=== PATIENT | male | born 1945 | race Caucasian/White ===

== ENCOUNTER 2024-06-17 08:53 | Inpatient (IN) | payer MEDICARE, MEDICAID, OTHER, SELFPAY ==
--- NOTE | ~2024-06-17 | CT_ITS ---
EXAMINATION: CT HEAD WITHOUT CONTRAST CLINICAL INFORMATION: Fall yesterday. Weakness. COMPARISON: None available. TECHNIQUE: Contiguous axial imaging was performed from the skull base to vertex without intravenous administration of contrast. This CT examination was performed using dose optimization techniques as appropriate, variously including the following: *Automated exposure control *Adjustment of mA and/or kV according to patient size (this includes techniques or standardized protocols for targeted exams where dose is matched to indication/reason for exam; i.e. extremities or head) *Use of iterative reconstruction technique DLP: 711 mGy-cm FINDINGS: No intracranial hemorrhage, large infarction, or mass lesion is seen. Age-appropriate diffuse cortical atrophy and chronic bilateral periventricular white matter ischemic change. Left basal ganglia lacunar infarct. No extra-axial collection is appreciated. The ventricles are normal in size and configuration without evidence of hydrocephalus. The visualized paranasal sinuses and mastoid air cells are clear. CT/CT head/brain wo IV con IMPRESSION: No acute intracranial finding. Electronically signed by: Mc Felipe MD 06/17/2024 01:21 PM [facility]
--- NOTE | ~2024-06-17 | CT_ITS ---
EXAMINATION: CT ABDOMEN AND PELVIS WITHOUT AND WITH CONTRAST CLINICAL INFORMATION: Hematemesis. Syncope. COMPARISON: None available. TECHNIQUE: Multidetector volumetric imaging was performed of the abdomen and pelvis before and after the IV administration of 85 mL of Omnipaque 300 intravenous contrast. Sagittal and coronal reformatted images were obtained on the technologist's workstation. This CT examination was performed using dose optimization techniques as appropriate, variously including the following: *Automated exposure control *Adjustment of mA and/or kV according to patient size (this includes techniques or standardized protocols for targeted exams where dose is matched to indication/reason for exam; i.e. extremities or head) *Use of iterative reconstruction technique DLP: 3098 mGy-cm FINDINGS: LUNG BASES: The lung bases appear clear, with no evidence of inflammation or nodules. Heart normal in size. Decreased blood pool density, suggesting anemia. No pericardial effusion. LIVER, GALLBLADDER, AND BILIARY TREE: Less than 3 cm benign simple hepatic cysts. The otherwise liver appears unremarkable in size, shape, and attenuation. No suspicious focal hepatic lesion or biliary ductal dilatation is appreciated. Unremarkable appearance of the gallbladder. PANCREAS: Unremarkable SPLEEN: Unremarkable ADRENAL GLANDS: Unremarkable KIDNEYS AND URETERS: There is an approximately 3 cm benign left lower pole simple renal cyst for which no further dedicated follow-up imaging as indicated. The kidneys otherwise appear unremarkable in size, shape, and attenuation. No hydronephrosis, hydroureter, or calculi seen. BLADDER: Unremarkable GASTROINTESTINAL TRACT: Limited by motion. Cannot confirm or exclude irregular wall thickening involving the gastric antrum with possible induration of adjacent fat. No definite acute hemorrhage identified. The visualized small bowel appears unremarkable. Normal-appearing distal ileum. Colonic diverticula without evidence of diverticulitis. Normal-appearing vermiform appendix. ABDOMINAL WALL: No significant hernia is appreciated. LYMPH NODES: No evidence of adenopathy by size criteria. VASCULAR: Unremarkable PELVIC VISCERA: Unremarkable OSSEOUS STRUCTURES: Bilateral moderate osteoarthritis of the hips. CT/CT gi bleed abd pel wo/w IVcon IMPRESSION: Limited by motion. Cannot confirm or exclude irregular wall thickening involving the gastric antrum, with possible induration of adjacent fat. Cannot confirm or exclude ulceration and/or mass. No definite acute hemorrhage identified. Endoscopy is recommended for further evaluation. Additional findings as above. Electronically signed by: Mc Felipe MD 06/17/2024 02:43 PM EST
--- NOTE | ~2024-06-17 | XR_ITS ---
EXAMINATION: XR ABDOMEN KUB CLINICAL INDICATION: Constipation. Bloating. COMPARISON: CT abdomen/pelvis dated 06/17/2024. TECHNIQUE: AP views of the abdomen. FINDINGS: Moderate air and stool throughout the bowel, increased compared to the prior CT. Nonobstructive bowel gas pattern. No abnormal soft tissue calcification. No acute osseous abnormality. XR/XR KUB IMPRESSION: Moderate air and stool throughout the bowel, increased compared to the prior CT. Electronically signed by: Minh Bruno MD 06/19/2024 09:35 AM [facility]
--- NOTE | 2024-06-17 08:55 | ED.ABDPAIN ---
HPI - Abdominal Pain General Chief Complaint: General Medical Stated Complaint: VOMITING DARK BLOOD CONSTIPATED X 5 DAYS Time Seen by Provider: 06/17/24 09:03 Source: patient and EMS Mode of arrival: EMS Limitations: no limitations History of Present Illness HPI narrative: Patient is a 78-year-old male who presents emergency department for evaluation. He reports 1 week ago he was feeling constipated did not have a bowel movement for 5 days. He took Dulcolax and has small black bowel movement on 06/15/2024, followed by a more sufficient saw bowel movement yesterday. 06/15/2024 he had 3 episodes of dark bloody emesis, no further episodes since then. He states that he took Pepto-Bismol on one occasion as well. Yesterday he reports having a syncopal episode with standing in the kitchen for a glass of suman enid when suddenly he dropped down and was floor. He reports a near syncopal episode today feeling dizzy and lightheaded. He feels generally weak and fatigued today. Mild abdominal discomfort. Reports his only medical history being arthritis for which he receives cortisone injection to the knees and takes meloxicam and Celebrex. He does admit to daily alcohol consumption typically 3-4 beers. Related Data Allergies Allergy/AdvReac Type Severity Reaction Status Date / Time No Known Allergies Allergy Verified 06/17/24 09:18 Review of Systems Review of Systems Yes all other systems are reviewed and are negative [facility] Past Medical History Attestation statement: The following information was validated with the patient. Source: old records reviewed Social History Social History Advance Directives: No Advance Directives Information Provided: Yes Physical Exam ED Vital Signs: Vital Signs - 24 hr 06/17/24 09:15 06/17/24 14:57 Temperature 98.9 F Pulse Rate 77 76 Respiratory Rate 16 20 Blood Pressure 99/67 113/58 L Pulse Oximetry 100 100 Oxygen Delivery Method Room Air Room Air BMI result Body Mass Index 26.7 Appearance: Alert.?Oriented to person, place and time. No acute distress.?Normal affect.?? Neck: Normal inspection.? Neck supple.?? CVS: Heart sounds normal. Normal heart rate and rhythm.? Pulses normal.?? Respiratory: No respiratory distress.? Lung sounds clear to auscultation bilaterally?? Abdomen: soft with mild tenderness upon palpation in the right upper quadrant, negative Mohr sign. Negative psoas sign. Negative Rovsing sign. No CVAT. Normoactive bowel sounds. No pulsatile mass.?? Skin: Skin warm and dry.? Skin appears slightly dusky Extremities: No lower extremity edema.? Neuro: Moves all extremities spontaneously. Sensation intact bilaterally. Ambulates with normal steady gait. Course Reevaluation(s) Reevaluation #1: On digital rectal examination performed with ED missile tracking technician Leno at bedside, patient noted to have Brown/black matter diffusely across the posterior legs concerning for dried feces, this was cleaned. He states at this time that yesterday he did have a large amount of diarrhea. Time: 09:39 Reevaluation #2: CBC reveals no leukocytosis, a normocytic anemia, mild thrombocytopenia. Occult stool is positive. No electrolyte derangement. BUN of 50 with normal creatinine, EGFR >60, suspect the elevated BUN as secondary to upper GIB Reevaluation #3: Reaching out to Gastroenterology Dr. Nogueira, CT of the abdomen and pelvis limited due to motion, radiologist impression can not exclude irregular wall thickening involving the gastric antrum and possible induration of adjacent fat nor ulceration or mass definite acute hemorrhage is identified. Occult specimen is positive. Feel that it requires admission for further evaluation, likely an endoscopy. Concern due to his drinking status whether there may be underlying varices monitor CIWA. Keeping NPO at this time, has received Protonix. CT of the head is without acute intracranial pathology. High sensitive troponin is within normal range, EKG without acute ischemic finding. Time: 15:13 Additional Reevaluation(s): I spoke with Dr. 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 On evaluation he was found tenderness in the right upper quadrant. He appears generally unwell, has a slightly dusky appearance to the skin. He is alert and oriented speaking clear full sentences. Will obtain CBC to evaluate for leukocytosis/ anemia, CMP and lipase to evaluate for abnormal electrolytes /abnormal renal function/ abnormal hepatic/biliary function, EKG and troponin to evaluate for ischemia/ACS. CT head, CT abdomen pelvis with GIB protocol, and Urinalysis. Patient treatment with Protonix 80 mg IV saline IV fluid. No associated chest pain shortness of breath or URI symptoms to suggest pneumonia, no clinical evidence of DVT or personal history of VTE/malignancy to suggest pulmonary embolism. No high-risk past medical history to suggest myocardial infarction and is without chest pain. Mild right upper quadrant tenderness upon palpation, concerning for possible acute cholecystitis, choledocholithiasis, no fever or jaundice to suggest acute cholangitis, may possibly be biliary colic secondary to cholelithiasis. My tenderness upon palpation over the epigastrium reported recent hematemesis concerning for GIB, gastritis, PUD, history of daily alcohol consumption, concerning for possible esophageal varices. No rebound tenderness at McBurney's point, rigidity, guarding to suggest acute appendicitis. No associated genitourinary symptoms to suggest UTI/pyelonephritis, renal colic, hydronephrosis. Differential Diagnosis Differential Diagnoses: The differential diagnosis associated with the presentation includes (See narrative above) Admission/Observation Consideration of admission/observation: Escalation of care including admission/observation considered (See narrative above ) Consult Healthcare Provider Management of the patient was discussed with: Hospitalist (See course narrative) and Axle Polisher (See course narrative) Lab Data MDM Lab Attestation statement: I reviewed the patient's lab results. 06/17/24 09:45 06/17/24 09:45 Labs: Lab Results 06/17/24 06/17/24 06/17/24 Range/Units 09:30 09:45 13:14 WBC 7.4 (4.8-10.8) X10*3/uL RBC 3.06 L (4.60-5.80) X10*6/uL Hgb 10.0 L (14.0-18.0) g/dl Hct 28.0 L (42.0-52.0) % MCV 91.5 (80.0-98.0) fL MCH 32.7 (27.0-33.0) pg MCHC 35.7 (31.0-36.0) g/dl RDW 12.5 (11.0-16.0) % Plt Count 151 L (160-400) X10*3/uL MPV 11.0 (9.4-12.4) fL Immature Gran % (Auto) 0.8 H (0.0-0.4) % Neut % (Auto) 79.2 H (45-73) % Lymph % (Auto) 15.2 L (20-40) % [place] % (Auto) 4.4 (2-11) % Eos % (Auto) 0.1 (0-4) % Baso % (Auto) 0.3 (0-2) % Lymph # (Auto) 1.1 L (1.2-4.9) X10*3/uL [place] # (Auto) 0.3 (0.1-1.2) X10*3/uL Eos # (Auto) 0.0 (0.0-0.4) X10*3/uL Baso # (Auto) 0.0 (0.0-0.2) X10*3/uL Abs Immat Gran (auto) 0.06 H (0.00-0.03) X10*3/uL Absolute Neuts (auto) 5.9 (2.0-8.3) x10*3/uL Absolute Nucleated RBC 0.000 (0.0-0.012) X10*3/uL Nucleated RBC % (auto) 0.0 (0.0-0.2) /100WBC PT 12.9 H (10.9-12.4) SEC INR 1.1 (0.9-1.1) Sodium 138 (135-145) mmol/L Potassium 4.0 (3.3-5.1) mmol/L Chloride 101 (96-108) mmol/L Carbon Dioxide 27 (22-29) mmol/L Anion Gap 14 (12-20) BUN 50 H (9-16) mg/dL Creatinine 1.13 (0.5-1.4) mg/dL Estim Creat Clear Calc 53.0 Estimated GFR > 60 Random Glucose 128 H (60-115) mg/dL Lactic Acid 2.5 H* (0.5-2.0) mmol/L Lactic Acid F/U @ 2Hr 2.1 H* (0.5-2.0) mmol/L Calcium 8.0 L (8.4-10.2) mg/dL Magnesium 2.9 H (1.6-2.6) mg/dL Total Bilirubin 0.9 (0.0-1.0) mg/dL AST 17 (5-37) U/L ALT 13 (0-40) U/L Alkaline Phosphatase 55 (39-117) U/L Total Creatine Kinase 26 L (38-174) U/L Troponin I High Sens 8.4 (<3.5-35.0) ng/L Total Protein 6.0 L (6.5-8.0) g/dL Albumin 3.5 (3.5-5.0) g/dL Lipase 28 (8-78) U/L Urine Color Urine Appearance Urine pH (5.0-9.0) Ur Specific [place] (1.005-1.025) Urine Protein (Neg-Trace) mg/dL Urine Glucose (UA) (Negative) mg/dL Urine Ketones (Negative) mg/dL Urine Blood (Negative) Urine Nitrite (Negative) Ur Leukocyte Esterase (Negative) Stool Occult Blood POSITIVE (NEGATIVE) Influenza Type A (PCR) NEGATIVE (Negative) Influenza Type B (PCR) NEGATIVE (Negative) RSV RNA Qual (PCR) NEGATIVE (Negative) SARS-CoV-2 RNA (RT-PCR) NEGATIVE (Negative) Blood Type A Positive Antibody Screen NEGATIVE 06/17/24 Range/Units 15:03 WBC (4.8-10.8) X10*3/uL RBC (4.60-5.80) X10*6/uL Hgb (14.0-18.0) g/dl Hct (42.0-52.0) % MCV (80.0-98.0) fL MCH (27.0-33.0) pg MCHC (31.0-36.0) g/dl RDW (11.0-16.0) % Plt Count (160-400) X10*3/uL MPV (9.4-12.4) fL Immature Gran % (Auto) (0.0-0.4) % Neut % (Auto) (45-73) % Lymph % (Auto) (20-40) % [place] % (Auto) (2-11) % Eos % (Auto) (0-4) % Baso % (Auto) (0-2) % Lymph # (Auto) (1.2-4.9) X10*3/uL [place] # (Auto) (0.1-1.2) X10*3/uL Eos # (Auto) (0.0-0.4) X10*3/uL Baso # (Auto) (0.0-0.2) X10*3/uL Abs Immat Gran (auto) (0.00-0.03) X10*3/uL Absolute Neuts (auto) (2.0-8.3) x10*3/uL Absolute Nucleated RBC (0.0-0.012) X10*3/uL Nucleated RBC % (auto) (0.0-0.2) /100WBC PT (10.9-12.4) SEC INR (0.9-1.1) Sodium (135-145) mmol/L Potassium (3.3-5.1) mmol/L Chloride (96-108) mmol/L Carbon Dioxide (22-29) mmol/L Anion Gap (12-20) BUN (9-16) mg/dL Creatinine (0.5-1.4) mg/dL Estim Creat Clear Calc Estimated GFR Random Glucose (60-115) mg/dL Lactic Acid (0.5-2.0) mmol/L Lactic Acid F/U @ 2Hr (0.5-2.0) mmol/L Calcium (8.4-10.2) mg/dL Magnesium (1.6-2.6) mg/dL Total Bilirubin (0.0-1.0) mg/dL AST (5-37) U/L ALT (0-40) U/L Alkaline Phosphatase (39-117) U/L Total Creatine Kinase (38-174) U/L Troponin I High Sens (<3.5-35.0) ng/L Total Protein (6.5-8.0) g/dL Albumin (3.5-5.0) g/dL Lipase (8-78) U/L Urine Color Yellow Urine Appearance Clear Urine pH 6.5 (5.0-9.0) Ur Specific [place] >= 1.030 H (1.005-1.025) Urine Protein Negative (Neg-Trace) mg/dL Urine Glucose (UA) Negative (Negative) mg/dL Urine Ketones Negative (Negative) mg/dL Urine Blood Negative (Negative) Urine Nitrite Negative (Negative) Ur Leukocyte Esterase Negative (Negative) Stool Occult Blood (NEGATIVE) Influenza Type A (PCR) (Negative) Influenza Type B (PCR) (Negative) RSV RNA Qual (PCR) (Negative) SARS-CoV-2 RNA (RT-PCR) (Negative) Blood Type Antibody Screen Independent Interpretation I performed an independent interpretation of an: EKG Interpretation: Rate: 84 Rhythm:? Sinus rhythm, PVC Normal P waves.? Short KATELYN, 100 ms.?? Normal QRS complex.?? ST T wave :??No ST elevation, no ST depression qTC:472 prior studies:? No prior available for review The study has been interpreted contemporaneously by me. Radiology Impression Discussion of test interpretation with radiology: I have reviewed the radiologist's reading. Radiologist Impression: CT/CT head/brain wo IV con IMPRESSION: No acute intracranial finding. CT/CT gi bleed abd pel wo/w IVcon IMPRESSION: Limited by motion. Cannot confirm or exclude irregular wall thickening involving the gastric antrum, with possible induration of adjacent fat. Cannot confirm or exclude ulceration and/or mass. No definite acute hemorrhage identified. Endoscopy is recommended for further evaluation. Independent Historian Clinical information obtained from an independent historian. History obtained from or confirmed by: EMS Medications Administered Discontinued Medications Generic Name Dose Route Start Last Admin Trade Name Freq PRN Reason Stop Dose Admin Sodium Chloride 1,000 mls @ 999 mls/hr 06/17/24 09:15 06/17/24 12:39 Ns IV 06/17/24 10:15 Infused .Q1H1M GISELA Infusion Iohexol 100 ml 06/17/24 11:43 06/17/24 11:44 Iohexol 350 Mg/Ml 100 Ml Infus..Btl IV 06/17/24 11:44 85 ml ONCE ONE Administration Pantoprazole Sodium 80 mg 06/17/24 09:03 06/17/24 09:48 Pantoprazole Sodium 40 Mg/10 Ml Vial IVPUSH 06/17/24 09:04 80 mg ONCE ONE Administration Critical Care Time Critical Care Time Critical Care Time: Yes Total Critical Care Time: 35 Attestation: I personally attest to this critical care time spent taking care of the patient exclusive of all other billable procedures was approximately 35 minutes including initial evaluation of patient, ordering tests, upper GIB, IV PPI, EKG interpretation, medical consultation, documentation, re-evaluation. Discharge Plan Discharge Clinical Impression: Upper gastrointestinal bleed Patient Disposition: Admitted As Inpatient Print Language: Niuean
--- NOTE | 2024-06-17 09:04 | ECG_ITS ---
Test Reason : SYNCOPE Blood Pressure : / mmHG Vent. Rate : 084 BPM Atrial Rate : 084 BPM P-R Int : 100 ms QRS Dur : 092 ms QT Int : 400 ms P-R-T Axes : 021 -10 -40 degrees QTc Int : 472 ms Sinus rhythm with short MO with Premature supraventricular complexes and with frequent Premature ventricular complexes Nonspecific ST abnormality Abnormal ECG No previous ECGs available Referred By: Franci Anthony Electronically Signed By:JHOANA CARRENO
[2024-06-17 09:15] VITALS: BP 132/71; BP 99/67; PULSE 77; PULSE 92; RESP 16; TEMP 37.2; O2SAT 100; BMI 26.7
[2024-06-17] MEDS: Pantoprazole Sodium 40 MG/10 ML VIAL 80 MG IVPUSH (09:48)
[2024-06-17] MEDS: 0.9 % Sodium Chloride 1,000 ML 999 ML IV (09:48)
[2024-06-17 09:52] LABS: MANUAL DIFF FLAG NO
[2024-06-17 09:53] LABS: Basophils Percent Auto 0.3 % (0-2); Eosinophils Percent Auto 0.1 % (0-4); Imm Gran Abs Auto 0.06 X10*3/uL (0.00-0.03); Imm Gran Pct Auto 0.8 % (0.0-0.4); Lymphocytes Absolute Auto 1.1 X10*3/uL (1.2-4.9); Lymphocytes Percent Auto 15.2 % (20-40); Mean Corpuscular HGB Conc 35.7 g/dl (31.0-36.0); Mean Corpuscular Hemoglobin 32.7 pg (27.0-33.0); Mean Corpuscular Volume 91.5 fL (80.0-98.0); Monocytes Absolute Auto 0.3 X10*3/uL (0.1-1.2); Monocytes Percent Auto 4.4 % (2-11); Neutrophils Absolute Auto 5.9 x10*3/uL (2.0-8.3); Neutrophils Percent Auto 79.2 % (45-73); OBS Int Ctl Valid YES; OBS1 POSITIVE (NEGATIVE); Platelet Count 151 X10*3/uL (160-400); Red Blood Count 3.06 X10*6/uL (4.60-5.80); Red Cell Distribution Width 12.5 % (11.0-16.0); White Blood Count 7.4 X10*3/uL (4.8-10.8)
[2024-06-17 09:58] LABS: INTERNATIONAL NORM RATIO 1.1 (0.9-1.1); Prothrombin Time 12.9 SEC (10.9-12.4)
--- NOTE | 2024-06-17 10:09 | PC.NURSE ---
Pt changed over on arrival for exam purposes, pt able to stand at the bedside with staff assist for exchange clerk. Pt is a/ox4. IV placed by EMS, labs obtained by straight stick. REctal exam done at bedside with provider, awaiting further orders at this time.
[2024-06-17 10:10] LABS: Alanine Aminotransferase 13 U/L (0-40); Albumin Level 3.5 g/dL (3.5-5.0); Alkaline Phosphatase 55 U/L (39-117); Anion Gap 14 (12-20); Aspartate Amino Transferase 17 U/L (5-37); Bilirubin Total 0.9 mg/dL (0.0-1.0); Blood Urea Nitrogen 50 mg/dL (9-16); Carbon Dioxide 27 mmol/L (22-29); Chloride 101 mmol/L (96-108); Estimated Glomerular Filt Rate > 60; Glucose Random 128 mg/dL (60-115); Lipase 28 U/L (8-78); Magnesium 2.9 mg/dL (1.6-2.6); Sodium 138 mmol/L (135-145)
[2024-06-17 10:14] LABS: Lactic Acid 2.5 mmol/L (0.5-2.0)
[2024-06-17 10:17] LABS: Influenza A PCR NEGATIVE (Negative); Influenza B PCR NEGATIVE (Negative); Resp Syncy Virus RNA Qual PCR NEGATIVE (Negative); SARS COV2 PCR INHOUSE NEGATIVE (Negative)
[2024-06-17 10:17] LABS: Troponin-I High Sensitivity 8.4 ng/L (<3.5-35.0)
[2024-06-17] MEDS: iohexoL 350 MG/ML 100 ML INFUS..BTL IV (11:44)
[2024-06-17 11:50] LABS: Reflex Lactate? Lactic Acid Added
[2024-06-17 13:43] LABS: ~Lactic Acid-LAB USE ONLY 2.1 mmol/L (0.5-2.0)
[2024-06-17 14:57] VITALS: BP 113/58; PULSE 76; RESP 20; O2SAT 100
[2024-06-17 15:09] LABS: Appearance Urine Clear; Color Urine Yellow; Glucose Urine UA Negative (Negative); Leukocyte Esterase Urine Negative (Negative); Nitrite Urine Negative (Negative); PH 6.5 (5.0-9.0); Specific Gravity - Urine >= 1.030 (1.005-1.025); Urine Blood Negative (Negative); Urine Ketones Negative (Negative); Urine Protein Negative (Neg-Trace)
[2024-06-17 15:16] LABS: Reflex Lactate? 2 Y
--- NOTE | 2024-06-17 15:53 | PC.NURSE ---
Per PA, repeat 3rd lactic canceled as patient is not meeting any type of septic work up at this time. Lab canceled in system
--- NOTE | 2024-06-17 16:27 | PHA.MEDREC ---
Pharmacy Consult ? Medication Reconciliation Pharmacy has completed the medication reconciliation. Spoke to patient to confirm medication list. Patient reports he gets cortisone shots for his knees. He takes celecoxib 200 mg every other day (with food) alternating with meloxicam 15 mg every other day. He has stared doing this since his doctor's visit on 05/24/24. Last dose was thursday or thursday.
--- NOTE | 2024-06-17 16:41 | PM.EVENT ---
Event Note Date of Service: 06/17/24 Event Note: Mr. Nick's presentation was discussed with Dr. Shoemaker. ER notes, labs, and imaging are reviewed. EGD planned for 06/18 for further evaluation of gi blood loss. Full consult to follow. Time Spent With Patient Time: Total time managing care of this patient today ____ minutes.
--- NOTE | 2024-06-17 16:55 | PM.IMHP ---
History of Present Illness Date of Service: 06/17/24 Attending physician on admission: Angela Agudelo Chief Complaint: gib 78y/o M current alcohol use (3-4 beer everday lifelong, also takes meloxicam and Celebrex for knee arthritis ) says 1 week ago he was feeling constipated for which he took Dulcolax and has small black bowel movement on 06/15/2024, followed by a more sufficient saw bowel movement yesterday. 06/15/2024 he had 3 episodes of dark bloody emesis, no further episodes. he is not eating from 3-4 days due to above issues, He states that he took Pepto-Bismol on one occasion as well, Yesterday he had syncopal episode with standing in the kitchen for a glass of suman enid when suddenly he dropped down and was floor,felt dizzy and lightheaded and had syncope episode. He feels generally weak and fatigued today. Mild abdominal discomfort. for knee arthritis for which he receives cortisone injection to the knees . Patient did not go to any doctor from last 40 years-could not tell if any other past medical history or any abdominal surgeries. Social history: Quit smoking 40 years ago, total years smoked is 10. Denies any recreation drug use. Lab imaging EKG reviewed: Is H&H is around 10, no tachycardia or tachypnea. CT head and negative Stool for occult blood positive CT abdomen:Limited by motion. Cannot confirm or exclude irregular wall thickening involving the gastric antrum, with possible induration of adjacent fat. Cannot confirm or exclude ulceration and/or mass. Review of Systems Review of Systems: As above. Yes all other systems are reviewed and are negative [facility] Social History Patient Tobacco Use Status: Never used Tobacco Advance Directives: No Advance Directives Information Provided: Yes Meds Allergies Allergy/AdvReac Type Severity Reaction Status Date / Time No Known Allergies Allergy Verified 06/17/24 09:18 Active Medications: Current Medications Acetaminophen (Acetaminophen 325 Mg Tablet) 650 mg PO Q6H PRN PRN Reason: Pain, Mild (Pain Scale 1-3), fever or headache Calcium Carbonate (Calcium Carbonate 750 Mg Tab.Chew) 750 mg PO Q4H PRN PRN Reason: Heartburn Pantoprazole Sodium 80 mg/ (Sodium Chloride) 100 mls @ 10 mls/hr IV .Q10H GISELA Magnesium Hydroxide (Milk Of Magnesia 30 Ml Oral.Susp) 30 ml PO DAILY PRN PRN Reason: Constipation Melatonin (Melatonin 3 Mg Tablet) 6 mg PO BEDTIME PRN PRN Reason: Insomnia Sodium Chloride (0.9 % Sodium Chloride Flush 3 Ml Syringe) 3 ml IVFLUSH QSHIFT GISELA Home Medications ?Medication ?Instructions ?Recorded ?Confirmed ?Last Taken ?Type celecoxib 200 mg capsule 200 mg Q48H 06/17/24 06/17/24 06/12/24 History meloxicam 15 mg tablet 15 mg PO Q48H 06/17/24 06/17/24 06/11/24 History Physical Exam Vital Signs and Narrative: Vital Signs: Last Vital Signs Temp 98.9 F 06/17/24 09:15 Pulse 76 06/17/24 14:57 Resp 20 06/17/24 14:57 BP 113/58 L 06/17/24 14:57 Pulse Ox 100 06/17/24 14:57 O2 Del Method Room Air 06/17/24 14:57 BMI result Body Mass Index 26.7 Appearance: Alert.? Oriented X3.? Eyes: Pupils equal, round and reactive to light.? Sclera nonicteric.? ENT: Pharynx normal.? dry mucous membranes. cvs: rrr, [id number] . res: clear to auscultation ,no rhonchii or wheezing abd: no rebound or guarding ,mild tenderness in epigastric area, bs present. ext pulses present , no cyanosis. neuro: axo3 , nonfocal. Results Labs 06/17/24 17:55 06/17/24 09:45 Labs: Laboratory Results - last 24 hr 06/17/24 06/17/24 06/17/24 09:30 09:45 13:14 MCV 91.5 MCH 32.7 MCHC 35.7 RDW 12.5 Plt Count 151 L MPV 11.0 Immature Gran % (Auto) 0.8 H Neut % (Auto) 79.2 H Lymph % (Auto) 15.2 L [place] % (Auto) 4.4 Eos % (Auto) 0.1 Baso % (Auto) 0.3 Lymph # (Auto) 1.1 L [place] # (Auto) 0.3 Eos # (Auto) 0.0 Baso # (Auto) 0.0 Abs Immat Gran (auto) 0.06 H Absolute Neuts (auto) 5.9 Absolute Nucleated RBC 0.000 Nucleated RBC % (auto) 0.0 PT 12.9 H INR 1.1 Anion Gap 14 Estim Creat Clear Calc 53.0 Estimated GFR > 60 Random Glucose 128 H Lactic Acid 2.5 H* Lactic Acid F/U @ 2Hr 2.1 H* Calcium 8.0 L Magnesium 2.9 H Total Bilirubin 0.9 AST 17 ALT 13 Alkaline Phosphatase 55 Total Creatine Kinase 26 L Troponin I High Sens 8.4 Total Protein 6.0 L Albumin 3.5 Lipase 28 Urine Color Urine Appearance Urine pH Ur Specific [place] Urine Protein Urine Glucose (UA) Urine Ketones Urine Blood Urine Nitrite Ur Leukocyte Esterase Stool Occult Blood POSITIVE Influenza Type A (PCR) NEGATIVE Influenza Type B (PCR) NEGATIVE RSV RNA Qual (PCR) NEGATIVE SARS-CoV-2 RNA (RT-PCR) NEGATIVE Blood Type A Positive Antibody Screen NEGATIVE 06/17/24 15:03 MCV MCH MCHC RDW Plt Count MPV Immature Gran % (Auto) Neut % (Auto) Lymph % (Auto) [place] % (Auto) Eos % (Auto) Baso % (Auto) Lymph # (Auto) [place] # (Auto) Eos # (Auto) Baso # (Auto) Abs Immat Gran (auto) Absolute Neuts (auto) Absolute Nucleated RBC Nucleated RBC % (auto) PT INR Anion Gap Estim Creat Clear Calc Estimated GFR Random Glucose Lactic Acid Lactic Acid F/U @ 2Hr Calcium Magnesium Total Bilirubin AST ALT Alkaline Phosphatase Total Creatine Kinase Troponin I High Sens Total Protein Albumin Lipase Urine Color Yellow Urine Appearance Clear Urine pH 6.5 Ur Specific [place] >= 1.030 H Urine Protein Negative Urine Glucose (UA) Negative Urine Ketones Negative Urine Blood Negative Urine Nitrite Negative Ur Leukocyte Esterase Negative Stool Occult Blood Influenza Type A (PCR) Influenza Type B (PCR) RSV RNA Qual (PCR) SARS-CoV-2 RNA (RT-PCR) Blood Type Antibody Screen ECG Attestation: I personally reviewed and interpreted this ECG as follows: (nsr) Imaging Radiologist's Impressions: Impressions Abdomen/Pelvis CT 06/17/24 09:03 IMPRESSION: Limited by motion. Cannot confirm or exclude irregular wall thickening involving the gastric antrum, with possible induration of adjacent fat. Cannot confirm or exclude ulceration and/or mass. No definite acute hemorrhage identified. Endoscopy is recommended for further evaluation. Additional findings as above. Electronically signed by: Mc Felipe MD 06/17/2024 02:43 PM EST RP Head CT 06/17/24 09:03 IMPRESSION: No acute intracranial finding. Electronically signed by: Mc Felipe MD 06/17/2024 01:21 PM EST RP Assessment and Plan (1) Upper gastrointestinal bleed: Status: Acute Plan 78y/o M current alcohol use (3-4 beer everday lifelong, also takes meloxicam and Celebrex for knee arthritis ) says 1 week ago he was feeling constipated for which he took Dulcolax and has small black bowel movement on 06/15/2024, followed by a more sufficient saw bowel movement yesterday. 06/15/2024 he had 3 episodes of dark bloody emesis, no further episodes. no hx of any colonoscopy or egd. Upper GIB:? multifactorial (meloxicam and Celebrex ,alcohol use) Ed d/w case with Gi -receomended to start iv ppi plan: has mild lightheadness no new episode of vomiting from 06/15 vitals stable moniter on tele moniter h/h ,ppi,ivf npo ,plan for egd in am type and screen Gi eval. arthritis knee (?OA): stable lidocaine patch,if needed will consider iv tylenol. juan : ivf ns @ 100ml/hr Acute lactic acidosis: Likely due to dehydration, improving No further lactic acid trending, unless clinical situation changes. dvt prophylax: mech devices. ongoing need for hospitlisation -upper GI bleed need ppi, H&H monitoring, may need transfusion if continue to bleed, GI evaluation, if patient becomes hemodynamically unstable -will need ICU evaluation. above is d/w ICU Dr Elizondo. Above management discussed with the patient in detail length he understand in agreement with the above plan, time spent 70 minute, patient full code. Quality Stroke Does the patient have a stroke diagnosis?: No VTE Prior VTE?: No VTE Risk Level:: Medical - moderate - high VTE Device Contraindication: N/A - Device Ordered VTE Drug Contraindication: N/A - Med Ordered
[2024-06-17 17:18] VITALS: BP 122/60; PULSE 71; RESP 16; TEMP 37.2; O2SAT 99
[2024-06-17 17:35] LABS: Cancel Lactic Acid Canceled
--- NOTE | 2024-06-17 17:38 | PC.NURSE ---
This RN has updated daughter on plan of care. Pt aware of plan, and nNPO status. This RN straight stick for H&H order at this time.
[2024-06-17] MEDS: Pantoprazole Sodium 80 MG in 0.9 % Sodium Chloride 80 ML 10 MG IV (17:44)
[2024-06-17] MEDS: 0.9 % Sodium Chloride 1,000 ML 100 ML IVCONT (17:44)
[2024-06-17 18:02] LABS: Hemoglobin 8.8 g/dl (14.0-18.0); Mean Corpuscular HGB Conc 35.2 g/dl (31.0-36.0); Mean Corpuscular Hemoglobin 32.4 pg (27.0-33.0); Mean Corpuscular Volume 91.9 fL (80.0-98.0); Mean Platelet Volume 10.7 fL (9.4-12.4); Platelet Count 123 X10*3/uL (160-400); Red Blood Count 2.72 X10*6/uL (4.60-5.80); Red Cell Distribution Width 12.6 % (11.0-16.0); White Blood Count 6.3 X10*3/uL (4.8-10.8)
[2024-06-17 19:24] VITALS: BP 111/54; PULSE 67; RESP 16; TEMP 36.8; O2SAT 99
[2024-06-17 20:03] LABS: Hematocrit 24.3 % (42.0-52.0); Hemoglobin 8.5 g/dl (14.0-18.0)
[2024-06-17 20:37] VITALS: BMI 27.0
[2024-06-17 21:19] VITALS: BP 146/65; PULSE 71; RESP 17; TEMP 36.7; O2SAT 99
[2024-06-18] VITALS (15 sets, daily range): BP systolic 104–132; BP diastolic 50–67; PULSE 58–87; RESP 14–18; TEMP 36.1–36.7; O2SAT 96–100
[2024-06-18 00:32] LABS: Hematocrit 23.5 % (42.0-52.0); Hemoglobin 8.2 g/dl (14.0-18.0); Mean Corpuscular HGB Conc 34.9 g/dl (31.0-36.0); Mean Corpuscular Hemoglobin 32.5 pg (27.0-33.0); Mean Corpuscular Volume 93.3 fL (80.0-98.0); Mean Platelet Volume 10.2 fL (9.4-12.4); Platelet Count 126 X10*3/uL (160-400); Red Blood Count 2.52 X10*6/uL (4.60-5.80); Red Cell Distribution Width 12.7 % (11.0-16.0)
[2024-06-18] MEDS: Pantoprazole Sodium 80 MG in 0.9 % Sodium Chloride 80 ML 10 MG IV ×2 (02:05→13:09)
[2024-06-18] MEDS: 0.9 % Sodium Chloride 1,000 ML 100 ML IVCONT (02:55)
[2024-06-18 08:40] LABS: Hematocrit 23.7 % (42.0-52.0); Hemoglobin 8.3 g/dl (14.0-18.0); Mean Corpuscular Hemoglobin 33.1 pg (27.0-33.0); Mean Corpuscular Volume 94.4 fL (80.0-98.0); Mean Platelet Volume 10.8 fL (9.4-12.4); Platelet Count 133 X10*3/uL (160-400); Red Blood Count 2.51 X10*6/uL (4.60-5.80); Red Cell Distribution Width 12.6 % (11.0-16.0); White Blood Count 4.5 X10*3/uL (4.8-10.8)
--- NOTE | 2024-06-18 08:49 | P.CONAN_ITS ---
HPI - Anesthesia Eval Consult details Narrative: GI bleed PMFSH Active Problems Active Problems: All Active Problems Upper gastrointestinal bleed (Acute) Family History Family history of problems with anesthesia: No Surgical History History of Problems with Anesthesia: No Social History Social History Household Members: None Housing: Apartment Do you presently have visiting nurse or other home services: No Patient Tobacco Use Status: Never used Tobacco Meds Allergies Allergy/AdvReac Type Severity Reaction Status Date / Time No Known Allergies Allergy Verified 06/17/24 09:18 Active Medications: Current Medications Acetaminophen (Acetaminophen 325 Mg Tablet) 650 mg PO Q6H PRN PRN Reason: Pain, Mild (Pain Scale 1-3), fever or headache Calcium Carbonate (Calcium Carbonate 750 Mg Tab.Chew) 750 mg PO Q4H PRN PRN Reason: Heartburn Pantoprazole Sodium 80 mg/ (Sodium Chloride) 100 mls @ 10 mls/hr IV .Q10H [facility] Last Admin: 06/18/24 02:05 Dose: 8 mg/hr, 10 mls/hr Sodium Chloride (Ns) 1,000 mls @ 100 mls/hr IVCONT .Q10H [facility] Last Admin: 06/18/24 02:55 Dose: 100 mls/hr Magnesium Hydroxide (Milk Of Magnesia 30 Ml Oral.Susp) 30 ml PO DAILY PRN PRN Reason: Constipation Melatonin (Melatonin 3 Mg Tablet) 6 mg PO BEDTIME PRN PRN Reason: Insomnia Sodium Chloride (0.9 % Sodium Chloride Flush 3 Ml Syringe) 3 ml IVFLUSH QSHIFT [facility] Last Admin: 06/18/24 08:41 Dose: Not Given Home Medications ?Medication ?Instructions ?Recorded ?Confirmed ?Last Taken ?Type celecoxib 200 mg capsule 200 mg Q48H 06/17/24 06/17/24 06/12/24 History meloxicam 15 mg tablet 15 mg PO Q48H 06/17/24 06/17/24 06/11/24 History Exam Height,Weight and Vital Signs: Height 5 ft 9 in Weight 83 kg Last Vital Signs Temp 97.2 F 06/18/24 08:00 Pulse 62 06/18/24 08:00 Resp 18 06/18/24 08:00 BP 122/60 06/18/24 08:00 Pulse Ox 99 06/18/24 08:00 O2 Del Method Room Air 06/18/24 08:00 Pertinent Lab Results Pertinent Lab Results: Laboratory Tests 06/17/24 06/17/24 06/17/24 09:30 09:45 13:14 WBC 7.4 RBC 3.06 L Hgb 10.0 L Hct 28.0 L MCV 91.5 MCH 32.7 MCHC 35.7 RDW 12.5 Plt Count 151 L MPV 11.0 Immature Gran % (Auto) 0.8 H Neut % (Auto) 79.2 H Lymph % (Auto) 15.2 L [place] % (Auto) 4.4 Eos % (Auto) 0.1 Baso % (Auto) 0.3 Lymph # (Auto) 1.1 L [place] # (Auto) 0.3 Eos # (Auto) 0.0 Baso # (Auto) 0.0 Abs Immat Gran (auto) 0.06 H Absolute Neuts (auto) 5.9 Absolute Nucleated RBC 0.000 Nucleated RBC % (auto) 0.0 PT 12.9 H INR 1.1 Sodium 138 Potassium 4.0 Chloride 101 Carbon Dioxide 27 Anion Gap 14 BUN 50 H Creatinine 1.13 Estim Creat Clear Calc 53.0 Estimated GFR > 60 Random Glucose 128 H Lactic Acid 2.5 H* Lactic Acid F/U @ 2Hr 2.1 H* Calcium 8.0 L Magnesium 2.9 H Total Bilirubin 0.9 AST 17 ALT 13 Alkaline Phosphatase 55 Total Creatine Kinase 26 L Troponin I High Sens 8.4 Total Protein 6.0 L Albumin 3.5 Lipase 28 Urine Color Urine Appearance Urine pH Ur Specific [place] Urine Protein Urine Glucose (UA) Urine Ketones Urine Blood Urine Nitrite Ur Leukocyte Esterase Stool Occult Blood POSITIVE Influenza Type A (PCR) NEGATIVE Influenza Type B (PCR) NEGATIVE RSV RNA Qual (PCR) NEGATIVE SARS-CoV-2 RNA (RT-PCR) NEGATIVE Blood Type A Positive Antibody Screen NEGATIVE Crossmatch See Detail 06/17/24 06/17/24 06/17/24 15:03 17:18 17:55 WBC 6.3 RBC 2.72 L Hgb 8.5 L 8.8 L Hct 24.3 L 25.0 L MCV 91.9 MCH 32.4 MCHC 35.2 RDW 12.6 Plt Count 123 L MPV 10.7 Immature Gran % (Auto) Neut % (Auto) Lymph % (Auto) [place] % (Auto) Eos % (Auto) Baso % (Auto) Lymph # (Auto) [place] # (Auto) Eos # (Auto) Baso # (Auto) Abs Immat Gran (auto) Absolute Neuts (auto) Absolute Nucleated RBC 0.000 Nucleated RBC % (auto) 0.0 PT INR Sodium Potassium Chloride Carbon Dioxide Anion Gap BUN Creatinine Estim Creat Clear Calc Estimated GFR Random Glucose Lactic Acid Lactic Acid F/U @ 2Hr Calcium Magnesium Total Bilirubin AST ALT Alkaline Phosphatase Total Creatine Kinase Troponin I High Sens Total Protein Albumin Lipase Urine Color Yellow Urine Appearance Clear Urine pH 6.5 Ur Specific [place] >= 1.030 H Urine Protein Negative Urine Glucose (UA) Negative Urine Ketones Negative Urine Blood Negative Urine Nitrite Negative Ur Leukocyte Esterase Negative Stool Occult Blood Influenza Type A (PCR) Influenza Type B (PCR) RSV RNA Qual (PCR) SARS-CoV-2 RNA (RT-PCR) Blood Type Antibody Screen Crossmatch 06/18/24 06/18/24 00:24 08:04 WBC 5.0 4.5 L RBC 2.52 L 2.51 L Hgb 8.2 L 8.3 L Hct 23.5 L 23.7 L MCV 93.3 94.4 MCH 32.5 33.1 H MCHC 34.9 35.0 RDW 12.7 12.6 Plt Count 126 L 133 L MPV 10.2 10.8 Immature Gran % (Auto) Neut % (Auto) Lymph % (Auto) [place] % (Auto) Eos % (Auto) Baso % (Auto) Lymph # (Auto) [place] # (Auto) Eos # (Auto) Baso # (Auto) Abs Immat Gran (auto) Absolute Neuts (auto) Absolute Nucleated RBC 0.000 0.000 Nucleated RBC % (auto) 0.0 0.0 PT INR Sodium Potassium Chloride Carbon Dioxide Anion Gap BUN Creatinine Estim Creat Clear Calc Estimated GFR Random Glucose Lactic Acid Lactic Acid F/U @ 2Hr Calcium Magnesium Total Bilirubin AST ALT Alkaline Phosphatase Total Creatine Kinase Troponin I High Sens Total Protein Albumin Lipase Urine Color Urine Appearance Urine pH Ur Specific [place] Urine Protein Urine Glucose (UA) Urine Ketones Urine Blood Urine Nitrite Ur Leukocyte Esterase Stool Occult Blood Influenza Type A (PCR) Influenza Type B (PCR) RSV RNA Qual (PCR) SARS-CoV-2 RNA (RT-PCR) Blood Type Antibody Screen Crossmatch Airway Mallampati Class: II TM Dist: >3cm Neck ROM: Full Loose/Missing/Broken Teeth: No Heart: RRR Lungs: CTA Assessment and Plan Assessment Anesthesia Assessment: Anesthesia Plan Discussed and Chart Reviewed Final Anesthetic Review Family History of Problems with Anesthesia: No History of Problems with Anesthesia: No NPO: Yes ASA Class: II Final Preanesthetic Review: No Changes in Pt Med Stat, Meds/Allgs Chart Reviewed, Consent Obtained/Reviewed and Anes Risks/Benef Reviewed Patient Risk: Intermediate Procedure Risk: Low Anesthetic Plan Anesthetic Plan: MAC: Disposition: Standard PACU
[2024-06-18 08:52] LABS: Anion Gap 11 (12-20); Blood Urea Nitrogen 25 mg/dL (9-16); Calcium 7.4 mg/dL (8.4-10.2); Carbon Dioxide 27 mmol/L (22-29); Chloride 108 mmol/L (96-108); Creatinine Clr Calc Pharmacy 69.6; Estimated Glomerular Filt Rate > 60; Glucose Random 99 mg/dL (60-115); Potassium 4.1 mmol/L (3.3-5.1); Sodium 142 mmol/L (135-145)
--- NOTE | 2024-06-18 09:38 | MHC.SHP ---
Pre-Procedural Eval Section A - 24 Hr Update-Section A only Date of Service: 06/18/24 The patient is an INPATIENT: Yes Changes since office visit: No Cold of Flu in the past 2 weeks, No New Medical Problems, No Changes in Medication and No Patient answered all questions The patient has been examined within 24 hours of the surgical procedure. The History & Physical has been completed within 30 days and I have reviewed it.: Yes Section B - Complete if H&P > 30 days Chief Complaint: Gib Allergies: Allergies Allergy/AdvReac Type Severity Reaction Status Date / Time No Known Allergies Allergy Verified 06/17/24 09:18 Plan I have reviewed the history and physical and performed a pertinent physical examination on my patient. No changes have occurred unless specified. Time Spent With Patient Time: Total time managing care of this patient today ____ minutes.
--- NOTE | 2024-06-18 09:39 | PM.EVENT ---
Event Note Date of Service: 06/18/24 Event Note: GI EGD shows large prepyloric gastric ulcer without active bleeding antral biopsies obtained start clear liquids, advance diet as tolerated. continue iv ppi f/u bx results. Time Spent With Patient Time: Total time managing care of this patient today ____ minutes.
--- NOTE | 2024-06-18 09:40 | P.BOP_ITS ---
Brief Operative Note Date of Service: 06/18/24 Pre-op diagnosis: GI bleed Post-op diagnosis: same Procedure: EGD Surgeon: Randolph Nogueira MD Anesthesia: MAC Was an Acute Care Occupational Therapist used for this Procedure?: No Estimated blood loss (mL): 2 Pathology: other Condition: stable Disposition: PACU
--- NOTE | 2024-06-18 09:59 | OP_ITS ---
DATE OF SERVICE: 06/18/2024 SURGEON: Randolph Nogueira MD INDICATIONS: GI bleeding PREOPERATIVE DIAGNOSIS: POSTOPERATIVE DIAGNOSIS: PROCEDURE PERFORMED: Upper endoscopy with biopsy. ESTIMATED BLOOD LOSS: COMPLICATIONS: ANESTHESIA: Monitored anesthesia care. ASSISTANTS: SPECIMENS: DESCRIPTION OF PROCEDURE: A history and physical was performed. The risks and benefits of the procedure were explained to the patient. Informed consent was obtained. The patient was placed in the left lateral decubitus position. The Olympus video gastroscope was introduced into the esophagus, stomach, and duodenum. Examination was performed. The scope was removed. He tolerated the procedure well and was returned to the recovery area in stable condition. FINDINGS: Esophagus: The esophagus was normal. Stomach: The stomach showed no evidence of masses. There was a large 2.5 cm ulcer on the posterior wall with some adherent clot that was not bleeding. This was present in the antrum in the immediate pre-pyloric area. Duodenum: The bulb and 2nd portion were normal. Antral biopsies were obtained. The ulcer was irrigated and no bleeding ensued. Because of the location of the ulcer and the oblique angle between the ulcer and the endoscope, it was elected not to perform therapy. IMPRESSION: Gastric ulcer. RECOMMENDATION: 1. Follow up the biopsy results. 2. Continue IV proton pump inhibitor. 3. Follow H and H. 4. Consider repeat endoscopy if signs of rebleeding. MD GUERITA Pearl/CHEYENNE / [phone]
--- NOTE | 2024-06-18 10:39 | CONS_ITS ---
DATE OF SERVICE: 06/18/2024 REFERRING PHYSICIAN: Dr. Shoemaker REASON FOR CONSULTATION: GI bleeding. HISTORY OF PRESENT ILLNESS: The patient is a pleasant 78-year-old man who was admitted to the hospital after presenting to the emergency room yesterday with complaints of hematemesis, black stools, and weakness with a syncopal episode at home. He describes about 1 week of feeling unwell with generalized weakness, lightheadedness, and had a syncopal episode at home with another near syncopal episode. Several days before admission, he had blackish vomit, and he reports several days of black stools. He did take Pepto-Bismol. There is a history of alcohol use, approximately 5 drinks most days, and he does take NSAIDs for arthritis involving the knee. He has not received medical care in the past 40 years. He was evaluated in the emergency department where laboratory studies were obtained as well as imaging. These are reviewed. His initial hematocrit yesterday was 28, and this dropped to 24 after he received IV hydration. CT scanning was obtained, which questions an abnormality in the antrum, although the radiology interpretation is rather vague, endoscopy was recommended. The patient denies any prior history of GI bleeding. He has never undergone colonoscopy or endoscopy and has no history of peptic ulcer disease. He does not smoke. PAST MEDICAL HISTORY: He denies other medical or surgical illnesses. MEDICATIONS: At the time of admission include meloxicam and NSAIDs. ALLERGIES: NONE. FAMILY HISTORY: This is negative for GI malignancy. SOCIAL HISTORY: He does not smoke. Alcohol use is as noted above. REVIEW OF SYSTEMS: SKIN: No pruritus. HEENT: Negative. CARDIOPULMONARY: No shortness of breath or chest pain. GASTROINTESTINAL: As above. GENITOURINARY: Negative. NEUROPSYCHIATRIC: Negative. PHYSICAL EXAMINATION: GENERAL: Shows a pleasant male, lying comfortably in bed. VITAL SIGNS: Stable. SKIN: Anicteric. HEENT: Shows he is edentulous. NECK: Without lymphadenopathy or thyromegaly. LUNGS: Clear. HEART: Shows a regular rate and rhythm. S1, S2. No murmur. ABDOMEN: Soft without focal masses or tenderness. Bowel sounds are present. No organomegaly is noted. EXTREMITIES: Without edema. DIAGNOSTIC DATA: Laboratory data and CT imaging are reviewed. IMPRESSION: GI bleeding. This appears consistent with an upper GI bleed. The differential diagnosis for this includes peptic ulcer disease, NSAID induced gastritis or ulcers, erosive esophagitis, gastric cancer, and AVMs. I discussed with him the need for endoscopy. This will be arranged for today. He understands risks and benefits and agrees to proceed. Thanks for asking me to see him. I will follow him in the hospital with you. MD GUERITA Pearl/CHEYENNE / [phone]
[2024-06-18] MEDS: Acetaminophen 325 MG TABLET 650 MG PO (12:18)
[2024-06-18] MEDS: diphenhydrAMINE HCL 25 MG CAPSULE PO (13:41)
--- NOTE | 2024-06-18 14:00 | HO.PM.IMPN ---
Subjective Subjective Date of Service: 06/18/24 Interval History: gi bleed sec to gastric ulcer Review of Systems seems somewhat better abd pain somewhat improving , no new episode of bleeding today sofar Physical Exam Vital Signs: Vital Signs: Last Vital Signs Temp 97.6 F 06/18/24 12:27 Pulse 68 06/18/24 12:27 Resp 17 06/18/24 12:27 BP 132/66 06/18/24 12:27 Pulse Ox 99 06/18/24 10:05 O2 Del Method Room Air 06/18/24 10:05 O2 Flow Rate 5 06/18/24 09:35 BMI result Body Mass Index 27.0 Appearance: Alert.? Oriented X3.? Eyes: Pupils equal, round and reactive to light.? Sclera nonicteric.? ENT: Pharynx normal.? dry mucous membranes. cvs: rrr, [id number] . res: clear to auscultation ,no rhonchii or wheezing abd: no rebound or guarding ,mild tenderness in epigastric area improving, bs present. ext pulses present , no cyanosis. neuro: axo3 , nonfocal. Objective Data Active Medications Acetaminophen (Acetaminophen 325 Mg Tablet) 650 mg PO Q6H PRN PRN Reason: Pain, Mild (Pain Scale 1-3), fever or headache Calcium Carbonate (Calcium Carbonate 750 Mg Tab.Chew) 750 mg PO Q4H PRN PRN Reason: Heartburn Pantoprazole Sodium 80 mg/ (Sodium Chloride) 100 mls @ 10 mls/hr IV .Q10H [facility] Last Admin: 06/18/24 13:09 Dose: 8 mg/hr, 10 mls/hr Documented By: JOS Magnesium Hydroxide (Milk Of Magnesia 30 Ml Oral.Susp) 30 ml PO DAILY PRN PRN Reason: Constipation Melatonin (Melatonin 3 Mg Tablet) 6 mg PO BEDTIME PRN PRN Reason: Insomnia Naloxone HCl (Naloxone Hcl 0.4 Mg/Ml Vial) 0.04 mg IVPUSH Q5M PRN PRN Reason: Excessive sedation or RR < 8 Ondansetron HCl (Ondansetron Hcl 4 Mg/2 Ml Vial) 4 mg IVPUSH ONCE PRN PRN Reason: Nausea and Vomiting Stop: 06/18/24 14:52 Sodium Chloride (0.9 % Sodium Chloride Flush 3 Ml Syringe) 3 ml IVFLUSH QSHIFT [facility] Last Admin: 06/18/24 08:41 Dose: Not Given Documented By: JOS Non-Admin Reason: IV Running Labs 06/18/24 08:04 06/18/24 08:04 Labs: Laboratory Results - last 24 hr 06/17/24 06/17/24 06/17/24 09:45 15:03 17:55 MCV 91.9 MCH 32.4 MCHC 35.2 RDW 12.6 Plt Count 123 L MPV 10.7 Absolute Nucleated RBC 0.000 Nucleated RBC % (auto) 0.0 Anion Gap Estim Creat Clear Calc Estimated GFR Random Glucose Calcium Urine Color Yellow Urine Appearance Clear Urine pH 6.5 Ur Specific [place] >= 1.030 H Urine Protein Negative Urine Glucose (UA) Negative Urine Ketones Negative Urine Blood Negative Urine Nitrite Negative Ur Leukocyte Esterase Negative Blood Type A Positive Antibody Screen NEGATIVE Crossmatch See Detail 06/18/24 06/18/24 00:24 08:04 MCV 93.3 94.4 MCH 32.5 33.1 H MCHC 34.9 35.0 RDW 12.7 12.6 Plt Count 126 L 133 L MPV 10.2 10.8 Absolute Nucleated RBC 0.000 0.000 Nucleated RBC % (auto) 0.0 0.0 Anion Gap 11 L Estim Creat Clear Calc 69.6 Estimated GFR > 60 Random Glucose 99 Calcium 7.4 L D Urine Color Urine Appearance Urine pH Ur Specific [place] Urine Protein Urine Glucose (UA) Urine Ketones Urine Blood Urine Nitrite Ur Leukocyte Esterase Blood Type Antibody Screen Crossmatch Assessment and Plan (1) Upper gastrointestinal bleed: Status: Acute Plan 78y/o M current alcohol use (3-4 beer everday lifelong, also takes meloxicam and Celebrex for knee arthritis ) says 1 week ago he was feeling constipated for which he took Dulcolax and has small black bowel movement on 06/15/2024, followed by a more sufficient saw bowel movement yesterday. 06/15/2024 he had 3 episodes of dark bloody emesis, no further episodes. no hx of any colonoscopy or egd. Upper GIB:? multifactorial (meloxicam and Celebrex ,alcohol use) Ed d/w case with Gi -receomended to start iv ppi plan:vitals stable ,moniter on tele EGD shows large prepyloric gastric ulcer without active bleeding,antral biopsies obtained hb/hct : 8.3/23.7 moniter h/h ,ppi,ivf, 1prbc ordered ,added clear liquid diet. arthritis knee (?OA): stable lidocaine patch, tylenol. juan : improved with hydration. syncope episode -likely sec relative hypovolemia with gib/juan,dec po intake. will check orthostasis . tele seems fine Acute lactic acidosis: Likely due to dehydration, improving No further lactic acid trending, unless clinical situation changes. [facility] need : upper GIB sec to gastric ulcer - need iv ppi,h/h monitering ,moniter for go bleeding/gi f/u. Quality Stroke Does the patient have a stroke diagnosis?: No VTE Prior VTE?: No VTE Risk Level:: Medical - moderate - high VTE Device Contraindication: N/A - Device Ordered VTE Drug Contraindication: N/A - Med Ordered
[2024-06-18] MEDS: 0.9 % Sodium Chloride Flush 3 ML SYRINGE IVFLUSH ×2 (16:04→23:35)
[2024-06-18] MEDS: Folic Acid 1 MG TABLET PO (16:04)
[2024-06-18] MEDS: Thiamine HCL 100 MG TABLET PO (16:04)
[2024-06-18] MEDS: Pantoprazole Sodium 40 MG/10 ML VIAL IVPUSH (16:04)
--- NOTE | 2024-06-18 16:09 | MHC.CM.PN ---
IMM DELIVERED. PATIENT LIVES IN [place] ALONE, SENIOR HOUSING FUNCTIONALLY INDEPENDENT. DENIES USE OF DME OR SERVICES. NO PCP. BROCHURE PROVIDED. DISCUSSED IMPORTANCE OF ESTABLISHING CARE. NO HCP. CM PROVIDED EDUCATION AND OFFERED ASSISTANCE. PATIENT DECLINED. DP: GOAL IS HOME SELF CARE, NEIGHBOR TO TRANSPORT. CM WILL CONTINUE TO FOLLOW.
[2024-06-18 17:21] LABS: Hematocrit 25.8 % (42.0-52.0)
[2024-06-19] VITALS (10 sets, daily range): BP systolic 97–133; BP diastolic 52–66; PULSE 55–104; RESP 16–18; TEMP 36–36.9; O2SAT 96–100
--- NOTE | 2024-06-19 | ECG_ITS ---
Test Reason : nsvt Blood Pressure : / mmHG Vent. Rate : 082 BPM Atrial Rate : 082 BPM P-R Int : 112 ms QRS Dur : 102 ms QT Int : 404 ms P-R-T Axes : 031 -19 001 degrees QTc Int : 472 ms Sinus rhythm with frequent , and consecutive Premature ventricular complexes Incomplete right bundle branch block Abnormal ECG When compared with ECG of 17-JUN-2024 09:14, Premature supraventricular complexes are no longer Present Referred By: Angela Agudelo Electronically Signed By:Harry Beckwith
[2024-06-19] MEDS: Pantoprazole Sodium 40 MG/10 ML VIAL IVPUSH ×2 (06:01→15:43)
[2024-06-19] MEDS: Folic Acid 1 MG TABLET PO (07:26)
[2024-06-19] MEDS: 0.9 % Sodium Chloride Flush 3 ML SYRINGE IVFLUSH ×3 (07:26→22:16)
[2024-06-19] MEDS: Thiamine HCL 100 MG TABLET PO (07:26)
[2024-06-19 08:03] LABS: Mean Corpuscular HGB Conc 34.6 g/dl (31.0-36.0); Mean Corpuscular Hemoglobin 32.5 pg (27.0-33.0); Mean Corpuscular Volume 93.9 fL (80.0-98.0); Mean Platelet Volume 10.8 fL (9.4-12.4); Platelet Count 118 X10*3/uL (160-400); Red Blood Count 2.77 X10*6/uL (4.60-5.80); Red Cell Distribution Width 12.8 % (11.0-16.0); White Blood Count 4.1 X10*3/uL (4.8-10.8)
[2024-06-19 08:27] LABS: Anion Gap 8 (12-20); Blood Urea Nitrogen 14 mg/dL (9-16); Calcium 8.1 mg/dL (8.4-10.2); Carbon Dioxide 28 mmol/L (22-29); Chloride 106 mmol/L (96-108); Creatinine Clr Calc Pharmacy 71.3; Estimated Glomerular Filt Rate > 60; Glucose Random 95 mg/dL (60-115); Potassium 3.7 mmol/L (3.3-5.1); Sodium 138 mmol/L (135-145)
[2024-06-19] MEDS: Docusate Sodium 100 MG/10 ML LIQUID PO (11:14)
[2024-06-19] MEDS: polyethylene glycoL 3350 17 GM POWD.PACK PO (11:14)
[2024-06-19] MEDS: bisacodyL 10 MG SUPP.RECT PR ×2 (11:14→22:10)
[2024-06-19] MEDS: Simethicone 80 MG TAB.CHEW PO (11:14)
--- NOTE | 2024-06-19 11:30 | P.PNGI_ITS ---
Subjective Subjective Date of Service: 06/19/24 Interval History: some discomfort this am with black stool feels better now tolerating clears Critical Care Time (minutes): 0 Physical Exam 2 Vital Signs: Vital Signs: Last Vital Signs Temp 97.2 F 06/19/24 07:39 Pulse 65 06/19/24 07:39 Resp 16 06/19/24 07:39 BP 133/63 06/19/24 07:39 Pulse Ox 96 06/19/24 08:52 O2 Del Method Room Air 06/19/24 08:52 O2 Flow Rate 5 06/18/24 09:35 BMI result Body Mass Index 27.0 GI: Other: abdomen is soft and nontender Objective Data Labs 06/19/24 06:44 06/19/24 06:44 Labs: Laboratory Results - last 24 hr 06/17/24 06/18/24 06/19/24 09:45 17:05 06:44 WBC 4.1 L RBC 2.77 L Hgb 9.0 L 9.0 L Hct 25.8 L 26.0 L MCV 93.9 MCH 32.5 MCHC 34.6 RDW 12.8 Plt Count 118 L MPV 10.8 Absolute Nucleated RBC 0.000 Nucleated RBC % (auto) 0.0 Sodium 138 Potassium 3.7 Chloride 106 Carbon Dioxide 28 Anion Gap 8 L BUN 14 Creatinine 0.84 Estim Creat Clear Calc 71.3 Estimated GFR > 60 Random Glucose 95 Calcium 8.1 L D Blood Type A Positive Antibody Screen NEGATIVE Crossmatch See Detail Procedures Date of Service Date of Service: 06/19/24 Progress Note: A&P Assessment and plan (1) Upper gastrointestinal bleed: Status: Acute Plan continue ppi monitor hct repeat egd if rebleeding diet advanced today cuate Trevino updated by phone. Time Spent With Patient Time: Total time managing care of this patient today ____ minutes. Quality Stroke Does the patient have a stroke diagnosis?: No VTE Prior VTE?: No VTE Risk Level:: Medical - moderate - high VTE Device Contraindication: N/A - Device Ordered VTE Drug Contraindication: N/A - Med Ordered
--- NOTE | 2024-06-19 13:35 | P.PNIM_ITS ---
Subjective Subjective Date of Service: 06/19/24 Interval History: anemia feels constipated /bloating Review of Systems feels bloated has constipation passing gases Physical Exam 2 Vital Signs: Vital Signs: Last Vital Signs Temp 98.4 F 06/19/24 11:46 Pulse 75 06/19/24 11:46 Resp 16 06/19/24 11:46 BP 133/60 06/19/24 11:46 Pulse Ox 99 06/19/24 11:46 O2 Del Method Room Air 06/19/24 11:46 O2 Flow Rate 5 06/18/24 09:35 BMI result Body Mass Index 27.0 Appearance: Alert.? Oriented X3.? Eyes: Pupils equal, round and reactive to light.? Sclera nonicteric.? ENT: Pharynx normal.? dry mucous membranes. cvs: rrr, [id number] . res: clear to auscultation ,no rhonchii or wheezing abd:nt, has bloating /discomfort ,bs present ext pulses present , no cyanosis. neuro: axo3 , nonfocal. Objective Data Active Medications Acetaminophen (Acetaminophen 325 Mg Tablet) 650 mg PO Q6H PRN PRN Reason: Pain, Mild (Pain Scale 1-3), fever or headache Bisacodyl (Bisacodyl 10 Mg Supp.Rect) 10 mg [place] BEDTIME [facility] Last Admin: 06/19/24 11:14 Dose: 10 mg Documented By: JOS Calcium Carbonate (Calcium Carbonate 750 Mg Tab.Chew) 750 mg PO Q4H PRN PRN Reason: Heartburn Folic Acid (Folic Acid 1 Mg Tablet) 1 mg PO DAILY [facility] Last Admin: 06/19/24 07:26 Dose: 1 mg Documented By: JOS Magnesium Hydroxide (Milk Of Magnesia 30 Ml Oral.Susp) 30 ml PO DAILY PRN PRN Reason: Constipation Melatonin (Melatonin 3 Mg Tablet) 6 mg PO BEDTIME PRN PRN Reason: Insomnia Naloxone HCl (Naloxone Hcl 0.4 Mg/Ml Vial) 0.04 mg IVPUSH Q5M PRN PRN Reason: Excessive sedation or RR < 8 Pantoprazole Sodium (Pantoprazole Sodium 40 Mg/10 Ml Vial) 40 mg IVPUSH BID@0630,1630 [facility] Last Admin: 06/19/24 06:01 Dose: 40 mg Documented By: JAMEEL Sodium Chloride (0.9 % Sodium Chloride Flush 3 Ml Syringe) 3 ml IVFLUSH QSHIFT [facility] Last Admin: 06/19/24 07:26 Dose: 3 ml Documented By: JOS Thiamine HCl (Thiamine Hcl 100 Mg Tablet) 100 mg PO DAILY [facility] Last Admin: 06/19/24 07:26 Dose: 100 mg Documented By: JOS Labs 06/19/24 06:44 06/19/24 06:44 Labs: Laboratory Results - last 24 hr 06/17/24 06/19/24 09:45 06:44 MCV 93.9 MCH 32.5 MCHC 34.6 RDW 12.8 Plt Count 118 L MPV 10.8 Absolute Nucleated RBC 0.000 Nucleated RBC % (auto) 0.0 Anion Gap 8 L Estim Creat Clear Calc 71.3 Estimated GFR > 60 Random Glucose 95 Calcium 8.1 L D Crossmatch See Detail Assessment and Plan (1) Upper gastrointestinal bleed: Status: Acute Plan 78y/o M current alcohol use (3-4 beer everday lifelong, also takes meloxicam and Celebrex for knee arthritis ) says 1 week ago he was feeling constipated for which he took Dulcolax and has small black bowel movement on 06/15/2024, followed by a more sufficient saw bowel movement yesterday. 06/15/2024 he had 3 episodes of dark bloody emesis, no further episodes. no hx of any colonoscopy or egd. Upper GIB:? multifactorial (meloxicam and Celebrex ,alcohol use) Ed d/w case with Gi -receomended to start iv ppi plan:vitals stable ,moniter on tele EGD shows large prepyloric gastric ulcer without active bleeding,antral biopsies obtained s/p 1prbc-hb/hct : 04/14 moniter h/h ,ppi,clear liquid diet. arthritis knee (?OA): stable lidocaine patch, tylenol. juan : improved with hydration. syncope episode -likely sec relative hypovolemia with gib/juan,dec po intake. will check orthostasis . tele seems fine Acute lactic acidosis: Likely due to dehydration, improving No further lactic acid trending, unless clinical situation changes. dvt prophylax:mech devices. ongoing hospitlisation need : upper GIB sec to gastric ulcer - need iv ppi,h/h monitering ,moniter for go bleeding/gi f/u. Quality Stroke Does the patient have a stroke diagnosis?: No VTE Prior VTE?: No VTE Risk Level:: Medical - moderate - high VTE Device Contraindication: N/A - Device Ordered VTE Drug Contraindication: N/A - Med Ordered
[2024-06-19 14:42] LABS: Magnesium 2.1 mg/dL (1.6-2.6)
[2024-06-19] MEDS: Magnesium Sulfate/H2O 2 GM/50 ML PIGGYBACK IV (14:47)
[2024-06-19] MEDS: Potassium Chloride/H20 10 MEQ/100 ML PIGGYBACK 100 MEQ IV ×4 (15:44→22:10)
[2024-06-19 16:35] LABS: Hemoglobin 9.1 g/dl (14.0-18.0)
--- NOTE | 2024-06-19 16:51 | HO.POSTANES ---
Post Anesthesia Evaluation Post Anesthesia Evaluation Date of Service: 06/19/24 Vital Signs: Vital Signs Temp Pulse Resp BP Pulse Ox O2 Del Method 06/19/24 15:27 104 H 97/52 L 06/19/24 15:26 75 122/64 06/19/24 15:25 97.3 F 67 16 126/60 99 Room Air 06/19/24 13:42 68 126/60 06/19/24 11:46 98.4 F 75 16 133/60 99 Room Air 06/19/24 08:52 96 Room Air 06/19/24 07:39 97.2 F 65 16 133/63 99 Room Air Anesthesia: Monitored Mental Status: Awake Pain Control: Satisfactory Nausea/Vomiting: None Hydration: Adequate Anesthesia-Related Issues: No Anes. Related Issues
[2024-06-19] MEDS: Metoprolol Tartrate 12.5 MG HALFTAB PO (22:10)
[2024-06-20] VITALS (7 sets, daily range): BP systolic 98–125; BP diastolic 55–69; PULSE 54–85; RESP 16–20; TEMP 36.2–37.1; O2SAT 95–100
[2024-06-20] MEDS: Pantoprazole Sodium 40 MG/10 ML VIAL IVPUSH ×2 (05:48→15:48)
[2024-06-20 06:48] LABS: Hematocrit 28.1 % (42.0-52.0); Hemoglobin 9.6 g/dl (14.0-18.0); Mean Corpuscular HGB Conc 34.2 g/dl (31.0-36.0); Mean Corpuscular Hemoglobin 31.9 pg (27.0-33.0); Mean Corpuscular Volume 93.4 fL (80.0-98.0); Platelet Count 133 X10*3/uL (160-400); Red Blood Count 3.01 X10*6/uL (4.60-5.80); Red Cell Distribution Width 12.9 % (11.0-16.0); White Blood Count 4.6 X10*3/uL (4.8-10.8)
[2024-06-20 06:59] LABS: Anion Gap 11 (12-20); Blood Urea Nitrogen 8 mg/dL (9-16); Calcium 8.2 mg/dL (8.4-10.2); Carbon Dioxide 26 mmol/L (22-29); Chloride 105 mmol/L (96-108); Creatinine Clr Calc Pharmacy 70.4; Estimated Glomerular Filt Rate > 60; Glucose Random 96 mg/dL (60-115); Potassium 3.9 mmol/L (3.3-5.1); Sodium 138 mmol/L (135-145)
--- NOTE | 2024-06-20 07:00 | CA_ITS ---
Transthoracic Echocardiogram Patient (Last, First, Middle): Geovanni Nick L Gender: Male Date of : 1945 Age: 78 Procedure Date: 06/20/2024 Procedure Type: Transthoracic Echocardiogram Location: [facility] Height: 175. cm Weight: 82.56 kg BSA: 1.98 m2 Heart Rate: 54 bpm BP: 122 / 58 mmHg Tag And Label Cutter: CRYSTAL Referring MD: Angela Agudelo MD Symptoms: nsvt Study Quality: Fair ECG Rhythm: Frequent ventricular premature beats Conclusions: - Normal left ventricular size and systolic function. There is mildly increased left ventricular wall thickness. The visually estimated ejection fraction is between 55-60%. - The basal inferior segment is hypokinetic. - Normal right ventricular cavity size and systolic function. - Mildly elevated right atrial pressure. Mild pulmonary hypertension is present. - There is mild dilatation of the ascending aorta measuring 3.60 cm. Findings Left Ventricle Normal left ventricular size and systolic function. There is mildly increased left ventricular wall thickness. The visually estimated ejection fraction is between 55-60%. There is evidence of regional wall motion abnormalities. Diastolic function is normal for age. Wall Motion Rest Echo Findings The basal inferior segment is hypokinetic. Right Ventricle Normal right ventricular cavity size and systolic function. Atria The left atrium is severely dilated. The right atrium is likely dilated. Aortic Valve There is a normal trileaflet aortic valve. There is no aortic valve stenosis. There is no aortic valve regurgitation. Mitral Valve The mitral valve appears normal. There is no mitral valve regurgitation. There is no mitral valve stenosis. Pulmonic Valve The pulmonic valve is likely normal. Tricuspid Valve Normal tricuspid valve structure. There is trace tricuspid valve regurgitation. The right ventricular systolic pressure is 37 mmHg. Mildly elevated right atrial pressure. Mild pulmonary hypertension is present. Great Vessels There is mild dilatation of the ascending aorta measuring 3.60 cm. The visualized portions of the pulmonary artery and branches are normal. Venous The inferior vena cava is dilated and collapses greater than 50% with inspiration. Pericardium/Pleural There is no evidence of pericardial effusion. Prior Study Comparison No prior study available for comparison. Measurements 2D Linear Measurements IVSd: 1.12 0.6-0.9/0.6-1.0 cm LVIDd: 5.29 3.9-5.3/4.2-5.9 cm LVIDd Index: 2.67 2.4-3.2/2.2-3.1 cm/m2 LVIDs: 3.54 2.0-3.6 cm LVPWd: 1.07 0.7-1.1 cm LA Diam: 4.50 2.7-3.8/3.0-4.0 cm LAIDs Index: 2.27 1.5-2.3 cm/m2 LV Mass: 281.29 67-162/88-224 g LV Mass Index: 142.07 43-95/49-115 g/m2 LVOT Diam: 2.30 3.0+(-)1.3 cm 2D Systolic Function EF 4C: 67.40 >55% EF 2C: 54.40 >55% EF BiP: 60.40 >55% Mitral Valve MV Pk E: 0.82 MV PK A: 0.55 MV Decel Time: 211.00 E/A: 1.50 E'Lateral: 12.70 E'Medial: 7.80 E/E' Med: 10.60 E/E' Lat: 6.50 PHT: 62.00 MVA PHT: 3.55 Decel [place]: 3.90 Aortic Valve AoV Pk [place]: 1.47 AoV Mn [place]: 1.02 AoV VTI: 0.36 AoV Pk Grad: 9.00 Aov Mn Grad: 5.00 CHACHO Cont.VTI: 2.25 LVOT LVOT Pk [place]: 0.79 LVOT Mn [place]: 0.56 LVOT VTI: 0.20 LVOT Pk Grad: 3.00 LVOT Mn Grad: 1.00 LVOT Diam: 2.30 LVOT Area: 4.15 Diastolic Function MV Pk E: 0.82 MV Pk A: 0.55 E/A: 1.50 E'Medial: 7.80 E/E' Med: 10.60 E' Laterial: 12.70 E/E' Lat: 6.50 Right Ventricle TAPSE (mm): 26.40 TVS' [place]: 15.60 Tricuspid Valve TR Pk [place]: 2.67 TR Pk Grad: 29.00 RA Press: 8.00 RVSP: 37.00 Great Vessels Aorta Sinus of Valsalva: 3.60 2.0-3.5 cm Ao Asc: 3.60 2.1-3.4 cm Ao Arch: 2.90 Pulmonary Valve PV Pk Al[place]: 1.31 Peak PV Grad: 7.00 Updated in Other Vendor System with Status of Final Harry Beckwith MD electronically signed on 06/20/2024 12:56:18 PM with status of Final
[2024-06-20] MEDS: Metoprolol Tartrate 12.5 MG HALFTAB PO (07:57)
[2024-06-20] MEDS: Potassium Chloride/H20 10 MEQ/100 ML PIGGYBACK 100 MEQ IV (07:58)
[2024-06-20] MEDS: 0.9 % Sodium Chloride Flush 3 ML SYRINGE IVFLUSH ×2 (08:02→21:21)
[2024-06-20] MEDS: Potassium Chloride ER 20 MEQ TAB.ER.PRT PO (09:16)
--- NOTE | 2024-06-20 10:36 | P.CONCA_ITS ---
History of Present Illness History of Present Illness Date of Service: 06/20/24 Requesting physician: Angela Agudelo Chief complaint: GI bleed, PVCs. NSVT Narrative: [age] year gentleman presenting with upper GI bleed due to peptic ulcer. He underwent endoscopy which has confirmed the diagnosis and he is on treatment for that. He was noted to have episode of nonsustained VT on telemetry. He also has some PVCs. He is completely asymptomatic. Denying any chest pain or shortness of breath. He has been started on metoprolol 12.5 mg twice a day. Denying any symptoms before he got hospitalized. [facility] Social History Social History Household Members: None Housing: Apartment Do you presently have visiting nurse or other home services: No Patient Tobacco Use Status: Never used Tobacco service: No Meds Allergies Allergy/AdvReac Type Severity Reaction Status Date / Time No Known Allergies Allergy Verified 06/17/24 09:18 Active Medications: Current Medications Acetaminophen (Acetaminophen 325 Mg Tablet) 650 mg PO Q6H PRN PRN Reason: Pain, Mild (Pain Scale 1-3), fever or headache Bisacodyl (Bisacodyl 10 Mg Supp.Rect) 10 mg [place] BEDTIME [facility] Last Admin: 06/19/24 22:10 Dose: 10 mg Calcium Carbonate (Calcium Carbonate 750 Mg Tab.Chew) 750 mg PO Q4H PRN PRN Reason: Heartburn Folic Acid (Folic Acid 1 Mg Tablet) 1 mg PO DAILY [facility] Last Admin: 06/20/24 08:03 Dose: Not Given Magnesium Hydroxide (Milk Of Magnesia 30 Ml Oral.Susp) 30 ml PO DAILY PRN PRN Reason: Constipation Melatonin (Melatonin 3 Mg Tablet) 6 mg PO BEDTIME PRN PRN Reason: Insomnia Metoprolol Tartrate (Metoprolol Tartrate 12.5 Mg Halftab) 12.5 mg PO BID [facility]; Protocol Last Admin: 06/20/24 07:57 Dose: 12.5 mg Naloxone HCl (Naloxone Hcl 0.4 Mg/Ml Vial) 0.04 mg IVPUSH Q5M PRN PRN Reason: Excessive sedation or RR < 8 Pantoprazole Sodium (Pantoprazole Sodium 40 Mg/10 Ml Vial) 40 mg IVPUSH BID@0630,1630 [facility] Last Admin: 06/20/24 05:48 Dose: 40 mg Sodium Chloride (0.9 % Sodium Chloride Flush 3 Ml Syringe) 3 ml IVFLUSH QSHIFT [facility] Last Admin: 06/20/24 08:02 Dose: 3 ml Thiamine HCl (Thiamine Hcl 100 Mg Tablet) 100 mg PO DAILY [facility] Last Admin: 06/20/24 08:03 Dose: Not Given Home Medications ?Medication ?Instructions ?Recorded ?Confirmed ?Last Taken ?Type celecoxib 200 mg capsule 200 mg Q48H 06/17/24 06/17/24 06/12/24 History meloxicam 15 mg tablet 15 mg PO Q48H 06/17/24 06/17/24 06/11/24 History Physical Exam 2 Vital Signs: Vital Signs: Last Vital Signs Temp 97.8 F 06/20/24 07:32 Pulse 57 06/20/24 07:32 Resp 17 06/20/24 07:32 BP 124/61 06/20/24 07:32 Pulse Ox 95 06/20/24 07:32 O2 Del Method Room Air 06/20/24 07:32 O2 Flow Rate 4 06/20/24 03:21 BMI result Body Mass Index 27.0 GENERAL APPEARANCE: in no acute distress, pleasant. NECK: no carotid bruit, no jugular venous distention. SKIN: no suspicious lesions, warm and dry. HEART: no murmurs, regular rate and rhythm. LUNGS: clear to auscultation bilaterally. ABDOMEN: soft, nontender. EXTREMITIES: no edema. PERIPHERAL PULSES: equal. NEUROLOGIC: No gross deficits, AAO X 3 Objective Labs and Meds 06/20/24 06:25 06/20/24 06:25 Lab results: Laboratory Results - last 24 hr 06/17/24 06/19/24 06/19/24 09:45 06:44 15:59 WBC RBC Hgb 9.1 L Hct 26.0 L MCV MCH MCHC RDW Plt Count MPV Absolute Nucleated RBC Nucleated RBC % (auto) Sodium Potassium Chloride Carbon Dioxide Anion Gap BUN Creatinine Estim Creat Clear Calc Estimated GFR Random Glucose Calcium Magnesium 2.1 Crossmatch See Detail 06/20/24 06:25 WBC 4.6 L RBC 3.01 L Hgb 9.6 L Hct 28.1 L MCV 93.4 MCH 31.9 MCHC 34.2 RDW 12.9 Plt Count 133 L MPV 11.0 Absolute Nucleated RBC 0.000 Nucleated RBC % (auto) 0.0 Sodium 138 Potassium 3.9 Chloride 105 Carbon Dioxide 26 Anion Gap 11 L BUN 8 L Creatinine 0.85 Estim Creat Clear Calc 70.4 Estimated GFR > 60 Random Glucose 96 Calcium 8.2 L Magnesium Crossmatch Assessment and Plan (1) Upper gastrointestinal bleed: Status: Acute (2) NSVT (nonsustained ventricular tachycardia): Status: Acute Plan 78-year-old gentleman who is presenting for upper GI bleed. He has been on PPI. He has been noted to have run of nonsustained VT. He also has some PVCs. He is completely asymptomatic. Agree with beta-blockers and can be changed to metoprolol 25 mg twice a day. Echocardiography to assess LV function. We will follow along with you. Thank you for allowing me to participate in the care of your patient. Please feel free to contact me if you have any questions. Procedures Date of Service Date of Service: 06/20/24
--- NOTE | 2024-06-20 11:50 | MHC.CM.PN ---
Addendum entered by Bella Cross 06/20/24 11:52: correction, pt to have Eccho, not stress test. Original Note: Per rounds, and EMR review, Pt is not ready for DC, he will have a stress test today and is still symtomatic for GI bleed. CM to follow for DC needs.
--- NOTE | 2024-06-20 12:14 | P.PNGI_ITS ---
Subjective Subjective Date of Service: 06/20/24 Interval History: feels well, no bleeding overnight. Critical Care Time (minutes): 0 Physical Exam 2 Vital Signs: Vital Signs: Last Vital Signs Temp 98.8 F 06/20/24 11:13 Pulse 54 06/20/24 11:13 Resp 18 06/20/24 11:13 BP 111/60 06/20/24 11:13 Pulse Ox 99 06/20/24 11:13 O2 Del Method Room Air 06/20/24 07:32 O2 Flow Rate 4 06/20/24 03:21 BMI result Body Mass Index 27.0 GI: Other: abdomen is soft and nontender Objective Data Labs 06/20/24 06:25 06/20/24 06:25 Labs: Laboratory Results - last 24 hr 06/17/24 06/19/24 06/19/24 09:45 06:44 15:59 WBC RBC Hgb 9.1 L Hct 26.0 L MCV MCH MCHC RDW Plt Count MPV Absolute Nucleated RBC Nucleated RBC % (auto) Sodium Potassium Chloride Carbon Dioxide Anion Gap BUN Creatinine Estim Creat Clear Calc Estimated GFR Random Glucose Calcium Magnesium 2.1 Crossmatch See Detail 06/20/24 06:25 WBC 4.6 L RBC 3.01 L Hgb 9.6 L Hct 28.1 L MCV 93.4 MCH 31.9 MCHC 34.2 RDW 12.9 Plt Count 133 L MPV 11.0 Absolute Nucleated RBC 0.000 Nucleated RBC % (auto) 0.0 Sodium 138 Potassium 3.9 Chloride 105 Carbon Dioxide 26 Anion Gap 11 L BUN 8 L Creatinine 0.85 Estim Creat Clear Calc 70.4 Estimated GFR > 60 Random Glucose 96 Calcium 8.2 L Magnesium Crossmatch Procedures Date of Service Date of Service: 06/20/24 Progress Note: A&P Assessment and plan (1) Upper gastrointestinal bleed: Status: Acute Assessment and Plan: Hct is stable, no plans to repeat egd today plan to repeat in 8-10 weeks as outpt bid ppi x 1 month then daily. No nsaids or alcohol. discussed with patient Time Spent With Patient Time: Total time managing care of this patient today ____ minutes. Quality Stroke Does the patient have a stroke diagnosis?: No VTE Prior VTE?: No VTE Risk Level:: Medical - moderate - high VTE Device Contraindication: N/A - Device Ordered VTE Drug Contraindication: N/A - Med Ordered
--- NOTE | 2024-06-20 12:25 | P.PNIM_ITS ---
Subjective Subjective Date of Service: 06/20/24 Interval History: GIB Review of Systems has 1 episode of black aubrey stool no chest pain or sob or lightheadness Physical Exam 2 Vital Signs: Vital Signs: Last Vital Signs Temp 98.8 F 06/20/24 11:13 Pulse 54 06/20/24 11:13 Resp 18 06/20/24 11:13 BP 111/60 06/20/24 11:13 Pulse Ox 99 06/20/24 11:13 O2 Del Method Room Air 06/20/24 07:32 O2 Flow Rate 4 06/20/24 03:21 BMI result Body Mass Index 27.0 Appearance: Alert.? Oriented X3.? cvs: rrr, [id number] . res: clear to auscultation ,no rhonchii or wheezing abd:nt, has bloating /discomfort ,bs present ext pulses present , no cyanosis. neuro: axo3 , nonfocal. Objective Data Active Medications Acetaminophen (Acetaminophen 325 Mg Tablet) 650 mg PO Q6H PRN PRN Reason: Pain, Mild (Pain Scale 1-3), fever or headache Bisacodyl (Bisacodyl 10 Mg Supp.Rect) 10 mg [place] BEDTIME [facility] Last Admin: 06/19/24 22:10 Dose: 10 mg Documented By: DARYL Calcium Carbonate (Calcium Carbonate 750 Mg Tab.Chew) 750 mg PO Q4H PRN PRN Reason: Heartburn Folic Acid (Folic Acid 1 Mg Tablet) 1 mg PO DAILY [facility] Last Admin: 06/20/24 08:03 Dose: Not Given Documented By: ROXY Non-Admin Reason: NPO Magnesium Hydroxide (Milk Of Magnesia 30 Ml Oral.Susp) 30 ml PO DAILY PRN PRN Reason: Constipation Melatonin (Melatonin 3 Mg Tablet) 6 mg PO BEDTIME PRN PRN Reason: Insomnia Metoprolol Succinate (Metoprolol Succinate Er 25 Mg Tab.Er.24h) 25 mg PO DAILY [facility]; Protocol Naloxone HCl (Naloxone Hcl 0.4 Mg/Ml Vial) 0.04 mg IVPUSH Q5M PRN PRN Reason: Excessive sedation or RR < 8 Pantoprazole Sodium (Pantoprazole Sodium 40 Mg/10 Ml Vial) 40 mg IVPUSH BID@0630,1630 [facility] Last Admin: 06/20/24 05:48 Dose: 40 mg Documented By: DARYL Sodium Chloride (0.9 % Sodium Chloride Flush 3 Ml Syringe) 3 ml IVFLUSH QSHIFT [facility] Last Admin: 06/20/24 08:02 Dose: 3 ml Documented By: ROXY Thiamine HCl (Thiamine Hcl 100 Mg Tablet) 100 mg PO DAILY [facility] Last Admin: 06/20/24 08:03 Dose: Not Given Documented By: ROXY Non-Admin Reason: NPO Labs 06/20/24 06:25 06/20/24 06:25 Labs: Laboratory Results - last 24 hr 06/17/24 06/19/24 06/20/24 09:45 06:44 06:25 MCV 93.4 MCH 31.9 MCHC 34.2 RDW 12.9 Plt Count 133 L MPV 11.0 Absolute Nucleated RBC 0.000 Nucleated RBC % (auto) 0.0 Anion Gap 11 L Estim Creat Clear Calc 70.4 Estimated GFR > 60 Random Glucose 96 Calcium 8.2 L Magnesium 2.1 Crossmatch See Detail Assessment and Plan (1) Upper gastrointestinal bleed: Status: Acute Plan 78y/o M current alcohol use (3-4 beer everday lifelong, also takes meloxicam and Celebrex for knee arthritis ) says 1 week ago he was feeling constipated for which he took Dulcolax and has small black bowel movement on 06/15/2024, followed by a more sufficient saw bowel movement yesterday. 06/15/2024 he had 3 episodes of dark bloody emesis, no further episodes. no hx of any colonoscopy or egd. Upper GIB:? multifactorial (meloxicam and Celebrex ,alcohol use) Ed d/w case with Gi -receomended to start iv ppi plan:vitals stable ,moniter on tele EGD shows large prepyloric gastric ulcer without active bleeding,antral biopsies obtained s/p 1prbc-hb/hct : 04/14 has another 1 episode of black etrry stool as per staff will moniter h/h ,ppi,clear liquid diet. arthritis knee (?OA): stable lidocaine patch, tylenol. juan : improved with hydration. nsvt: echo continue bb moniter electrolytes -keep k>4 and mag>2 syncope episode -likely sec relative hypovolemia with gib/juan,dec po intake. also has mild orthostasis likely to above. tele seems fine, added jana stockings Acute lactic acidosis: Likely due to dehydration, improving No further lactic acid trending, unless clinical situation changes. dvt prophylax:mech devices. ongoing hospitlisation need : upper GIB sec to gastric ulcer - need iv ppi,h/h monitering ,moniter for go bleeding/gi f/u. Quality Stroke Does the patient have a stroke diagnosis?: No VTE Prior VTE?: No VTE Risk Level:: Medical - moderate - high VTE Device Contraindication: N/A - Device Ordered VTE Drug Contraindication: N/A - Med Ordered
[2024-06-20 12:43] LABS: Hematocrit 26.1 % (42.0-52.0); Hemoglobin 9.3 g/dl (14.0-18.0)
--- NOTE | 2024-06-20 13:34 | P.CDIM_ITS ---
PROVIDER RESPONSE TEXT: To clarify, the appropriate diagnosis supported by the clinical indicators: Acute QUERY TEXT: PHYSICIAN'S DOCUMENTATION REQUEST Date of Query: 06/20/2024 12:03 PM EST Patient Name: Geovanni Nick Admit Date: 06/17/2024 Dear Angela Agudelo MD, A review of the medical record indicates additional documentation may be needed. Please review below and update the documentation accordingly. Clinical Indicators: GI operative note 06/18 - Impression - Gastric ulcer Start IV ppi, monitor h/h, clear liquid diet. EGD shows large prepyloric gastric ulcer without active bleeding. Antral biopsies obtained. Clarify which of the following accurately represents the acuity of the gastric ulcer: Possible options might include: Acute Acute on chronic Chronic Other (explain) Clinically unable to determine (explain) Thank you, Meghna Quinones, CCS, CDIS Use of terms such as suspected, likely, concern for, or probable (associated with a specific diagnosi s that is being evaluated, monitored, or treated as if it exists) are acceptable and can be coded in the inpatient se tting, when documented at the time of discharge. Please use your independent medical judgment in providing your response. THIS QUERY IS PART OF THE PERMANENT MEDICAL RECORD
[2024-06-20 17:32] LABS: Hematocrit 26.1 % (42.0-52.0); Hemoglobin 9.2 g/dl (14.0-18.0)
[2024-06-20] MEDS: bisacodyL 10 MG SUPP.RECT PR (21:21)
[2024-06-21 03:10] VITALS: BP 108/54; PULSE 56; RESP 20; TEMP 36.4; O2SAT 99
[2024-06-21] MEDS: Pantoprazole Sodium 40 MG/10 ML VIAL IVPUSH (05:52)
[2024-06-21 07:03] LABS: Hematocrit 27.4 % (42.0-52.0); Hemoglobin 9.4 g/dl (14.0-18.0)
[2024-06-21 07:22] VITALS: BP 115/60; PULSE 61; RESP 16; TEMP 36.8; O2SAT 100
[2024-06-21 08:00] VITALS: O2SAT 100
[2024-06-21] MEDS: 0.9 % Sodium Chloride Flush 3 ML SYRINGE IVFLUSH (09:20)
[2024-06-21] MEDS: Folic Acid 1 MG TABLET PO (09:20)
[2024-06-21] MEDS: Thiamine HCL 100 MG TABLET PO (09:20)
[2024-06-21] MEDS: Metoprolol Succinate ER 25 MG TAB.ER.24H PO (09:20)
[2024-06-21 11:20] VITALS: BP 116/67; PULSE 68; RESP 18; TEMP 36.3; O2SAT 99
--- NOTE | 2024-06-21 11:38 | P.CDIM_ITS ---
PROVIDER RESPONSE TEXT: To clarify, the appropriate diagnosis supported by the clinical indicators: Hypocalcemia: mild hypocalcemia sec to low po inatke QUERY TEXT: PHYSICIAN'S DOCUMENTATION REQUEST Date of Query: 06/21/2024 08:29 AM EST Patient Name: Geovanni Nick Admit Date: 06/17/2024 Dear Angela Agudelo MD, A review of the medical record indicates additional documentation may be needed. Please review below and update the documentation accordingly. Clinical Indicators: LABS: calcium 7.4 L 8.1 L Based on the above, is there a diagnosis that correlates with these lab findings: Hypocalcemia resolved, possible, probable etc. Labs indicate a diagnosis of (please specify) Other (explain) Clinically unable to determine (explain) Thank you, Meghna Quinones, CCS, CDIS Use of terms such as suspected, likely, concern for, or probable (associated with a specific diagnosi s that is being evaluated, monitored, or treated as if it exists) are acceptable and can be coded in the inpatient se tting, when documented at the time of discharge. Please use your independent medical judgment in providing your response. THIS QUERY IS PART OF THE PERMANENT MEDICAL RECORD
--- NOTE | 2024-06-21 11:51 | MHC.CM.PN ---
Second IMM 06/21/24, Pt has been medically cleared for DC, he will go home via private transport, plan is home, self care. Pt does not have a PCP. CM spoke with his dtr Belinda today. Pt completed HCP form, naming his dtr Belinda, and gave permission for CM to give any information to her. HCP form was sent to her, copies given to pt.
--- NOTE | 2024-06-21 11:52 | PM.DS ---
DS: Providers Provider Date of Service: 06/21/24 Date of admission: 06/17/24 16:51 Date of discharge: 06/21/24 Primary care physician: None Physician Consults: 06/17/24 16:52 Consult to Gastroenterology Routine Consulting Provider: [facility] Reason for consultation: Gib Has provider been notified: No 06/19/24 14:26 Consult to Cardiology Routine Consulting Provider: [facility] Reason for consultation: nsvt Has provider been notified: No Attending physician on discharge: Angela Agudelo Discharging clinician: Angela Agudelo DS: Diagnosis Discharge Diagnosis (1) Upper gastrointestinal bleed: Status: Acute DS: Summary Hospital Course Hospital Course: HPI: 78y/o M current alcohol use (3-4 beer everday lifelong, also takes meloxicam and Celebrex for knee arthritis ) says 1 week ago he was feeling constipated for which he took Dulcolax and has small black bowel movement on 06/15/2024, followed by a more sufficient saw bowel movement yesterday. 06/15/2024 he had 3 episodes of dark bloody emesis, no further episodes. he is not eating from 3-4 days due to above issues, He states that he took Pepto-Bismol on one occasion as well, Yesterday he had syncopal episode with standing in the kitchen for a glass of suman enid when suddenly he dropped down and was floor,felt dizzy and lightheaded and had syncope episode. He feels generally weak and fatigued today. Mild abdominal discomfort. for knee arthritis for which he receives cortisone injection to the knees . Patient did not go to any doctor from last 40 years-could not tell if any other past medical history or any abdominal surgeries. Social history: Quit smoking 40 years ago, total years smoked is 10. Denies any recreation drug use. Lab imaging EKG reviewed: Is H&H is around 10, no tachycardia or tachypnea. CT head and negative Stool for occult blood positive CT abdomen:Limited by motion. Cannot confirm or exclude irregular wall thickening involving the gastric antrum, with possible induration of adjacent fat. Cannot confirm or exclude ulceration and/or mass. Hospital course: Patient was admitted to the hospital because of vomiting with blood and anemia: Patient was admitted to the hospital for possible upper GI bleed: Started on bowel rest, IV fluids, also transfused 1PRBC, CT abdomen: Cannot confirm or exclude irregular wall thickening involving the gastric antrum, with possible induration of adjacent fat Cannot confirm or exclude ulceration . Seen by GI: Status post EGD-patient has large prepyloric gastric ulcer without active bleeding,antral biopsies obtained. Afterwards patient seems to be improved significantly H&H is stable around 9.4 range. Continued on PPIs IV. Patient H&H remained stable, no acute bleeding afterwards. Patient will be going home with omeprazole 40 mg b.i.d. until 07/22/23 then switch to omeprazole 40 mg daily on 07/23/23. Patient is to follow-up outpatient with Dr. Nogueira's office for repeat endoscopy in next 4-6 weeks. Monitor CBC outpatient. Patient was strongly advised to not drink alcohol as well as not use any NSAIDs or blood thinners until cleared by GI outpatient. If needed for knee pain can use Tylenol. mild hypocalcemia borderline: Improving in range of 8.2: Monitor BMP outpatient, further workup outpatient. syncope episode -telemetry seems fine except below. No new episode. Probably above episode may be related to dehydration/ELÍAS/GI bleed. Patient is has positive orthostasis-likely due to dehydration/GI bleed: We ordered Ashutosh stocking. Orthostatic precaution discussed with him in detail. NSVT: echo:Normal left ventricular size and systolic function. There is mildly increasedleft ventricular wall thickness. The visually estimated ejection fraction is between 55-60%. There is evidence of regional wall motion abnormalities. Diastolic function is normal for age seen by Cardiology recommended to add metoprolol 25 mg daily-further management outpatient ,cardiology may arrange outpatient appointment. plan: moniter cbc and bmp outpatient. Patient was strongly advised to abstain from alcohol. omeprazole 40 mg b.i.d. until 07/22/23 then switch to omeprazole 40 mg daily on 07/23/23. moniter cbc and follow up with Gi outpatient. patient need to followup with Gi for biopsy/further gastric ulcer management and cardiology outpatient. In addition patient was strongly advised to get PCP appointment. Above management discussed with the patient detail length with patient/his daughter Belinda-they both understand in agreement with the above plan, time spent 40 minute. Time Attestation Total time managing care of this patient today: 40 mintues. Discharge Coordination Time (in mins): 40min Quality: Safe Use of Opioids Does Pt have an Active Cancer Diagnosis on the Problem List?: No Quality: Stroke Does the patient have a stroke diagnosis?: No Physical Exam Vital Signs: Vital Signs: Last Vital Signs Temp 97.3 F 06/21/24 11:20 Pulse 68 06/21/24 11:20 Resp 18 06/21/24 11:20 BP 116/67 06/21/24 11:20 Pulse Ox 99 06/21/24 11:20 O2 Del Method Room Air 06/21/24 11:20 O2 Flow Rate 4 06/20/24 03:21 BMI result Body Mass Index 27.0 Appearance: Alert.? Oriented X3.? cvs: rrr, [id number] . res: clear to auscultation ,no rhonchii or wheezing abd:nt, has bloating /discomfort ,bs present ext pulses present , no cyanosis. neuro: axo3 , nonfocal. DS: Data Data Completed and Pending Pending studies at discharge: Pending at discharge 06/18/24 09:29 Surgical [PTH] Routine Labs on day of discharge: Laboratory Results - last 24 hr 06/20/24 06/20/24 06/21/24 12:34 17:16 06:39 Hgb 9.3 L 9.2 L 9.4 L Hct 26.1 L 26.1 L 27.4 L Imaging Chest x-ray: Radiologist's impression: ITS Impressions Abdomen/Pelvis CT 06/17/24 09:03 IMPRESSION: Limited by motion. Cannot confirm or exclude irregular wall thickening involving the gastric antrum, with possible induration of adjacent fat. Cannot confirm or exclude ulceration and/or mass. No definite acute hemorrhage identified. Endoscopy is recommended for further evaluation. Additional findings as above. Electronically signed by: Mc Felipe MD 06/17/2024 02:43 PM EST RP Head CT 06/17/24 09:03 IMPRESSION: No acute intracranial finding. Electronically signed by: Mc Felipe MD 06/17/2024 01:21 PM EST RP KUB X-Ray 06/19/24 07:50 IMPRESSION: Moderate air and stool throughout the bowel, increased compared to the prior CT. Electronically signed by: Minh Bruno MD 06/19/2024 09:35 AM EST RP Discharge Plan Discharge Anticipated Discharge Date/Time: 06/21/24 11:22 Patient Disposition: Home, Self-Care Discharge Diagnosis: gib , nsvt Referrals: Randolph Nogueira MD [Physician] - 1 Week Harry Beckwith MD [Physician] - 1 Week Physician,None [Primary Care Provider] - 1 Week Discharge Medications: New folic acid 1 mg Tablet 1 mg PO DAILY Qty: 30 0RF metoprolol succinate 25 mg Tablet Extended Release 24 Hr 25 mg PO DAILY Qty: 90 0RF Protocol: Hold for SBP/HR < HOLD for SBP < : 90 HOLD for HR < : 60 thiamine mononitrate (vit B1) 100 mg Tablet 100 mg PO DAILY Qty: 30 0RF omeprazole 40 mg capsule,delayed release(DR/EC) 40 mg PO BID Qty: 90 0RF Rx Instructions: please take omeprazole 40 mg p.o. b.i.d. until07/22/23, then switched to omeprazole 40 mg daily. (ANDRIY) Hector Knee [facility] See Rx Instructions .ROUTE .MEDSUPPLY Qty: 12 0RF Rx Instructions: As directed Discontinued celecoxib 200 mg capsule 200 mg Q48H Rx Instructions: TAKE WITH FOOD. TAKE EVERY OTHER DAY ALTERNATING WITH MELOXICAM meloxicam 15 mg tablet 15 mg PO Q48H Rx Instructions: TAKE EVERY OTHER DAY ALTERNATING WITH CELECOXIB Discharge Orders: Discharge Order (Routine); Ordered 06/21/24 Ordered By: Angela Agudelo Diet: Advance to usual diet Activity on Discharge: As tolerated Stand Alone Forms: Patient Portal Discharge page Print Language: Andorran Care Plan Goals: Patient was admitted to the hospital because of vomiting with blood and anemia: Patient was admitted to the hospital for possible upper GI bleed: Started on bowel rest, IV fluids, also transfused PRBC, CT abdomen: Cannot confirm or exclude irregular wall thickening involving the gastric antrum, with possible induration of adjacent fat Cannot confirm or exclude ulceration . Seen by GI: Status post EGD-patient has gastric ulcer. Afterwards patient seems to be improved significantly H&H is stable around 9.4 range. Continued on PPIs IV. Patient H&H remained stable, no acute bleeding afterwards. Patient will be going home with omeprazole 40 mg b.i.d. until 07/22/23 then switch to omeprazole 40 mg daily on 07/23/23. Patient is to follow-up outpatient with Dr. Nogueira's office for repeat endoscopy in next 4-6 weeks. Monitor CBC outpatient. Patient was strongly advised to not drink alcohol as well as not use any NSAIDs or blood thinners until cleared by GI outpatient. If needed for knee pain can use Tylenol. mild hypocalcemia borderline: Improving in range of 8.2: Monitor BMP outpatient, further workup outpatient. syncope episode -telemetry seems fine except below. No new episode. Probably above episode may be related to dehydration/ELÍAS/GI bleed. Patient is has positive orthostasis-likely due to dehydration/GI bleed: We ordered Ashutosh stocking. Orthostatic precaution discussed with him in detail. NSVT: echo:Normal left ventricular size and systolic function. There is mildly increasedleft ventricular wall thickness. The visually estimated ejection fraction is between 55-60%. There is evidence of regional wall motion abnormalities. Diastolic function is normal for age seen by Cardiology recommended to add metoprolol 25 mg daily-further management outpatient ,cardiology may arrange outpatient appointment. Above management discussed with the patient detail length he understand in agreement with the above plan, time spent 40 minute. Health Concerns: as above. Plan of Treatment: moniter cbc and bmp outpatient. omeprazole 40 mg b.i.d. until 07/22/23 then switch to omeprazole 40 mg daily on 07/23/23. moniter cbc and follow up with Gi outpatient. patient need to followup with Gi for biopsy/further gastric ulcer management and cardiology outpatient. In addition patient was strongly advised to get PCP appointment. Assessment: as above.
== END 2024-06-21 13:14 | disposition home or self-care (01) | DRG 378 ==
LOC: HO.ED 15:48 → HO.EDOVER 16:56 → HO.IMC 19:34
PROVIDERS: Internal Medicine Gastroenterology; Nurse Practitioner Family; Admitting Provider Internal Medicine; Emergency Provider Emergency Medicine; Visit Provider Internal Medicine
PROC: 0DB78ZX Excision of Stomach, Pylorus, Via Natural or Artificial Opening Endoscopic, Diagnostic (ICD-10-PCS; principal; 2024-06-18 09:00)
DX: K25.0 Acute gastric ulcer with hemorrhage (principal); E87.21 Acute metabolic acidosis; N17.9 Acute kidney failure, unspecified; I47.20 Ventricular tachycardia, unspecified; I49.3 Ventricular premature depolarization; K59.00 Constipation, unspecified; M17.0 Bilateral primary osteoarthritis of knee; E83.51 Hypocalcemia; E86.1 Hypovolemia; E86.0 Dehydration; Z20.822 Contact with and (suspected) exposure to COVID-19; Z79.899 Other long term (current) drug therapy
CPT/HCPCS: 0241U; 36415; 70450; 74018; 74178; 80048; 80053; 81003; 82272; 82550; 83605; 83690; 83735; 84484; 85014; 85018; 85025; 85027; 85610; 86850; 86900; 86901; 86923; 88305; 88342; 93005; 93306; 99285; J2003; J2470; J2704; J3010; J3475; J3480; P9016; Q9957; Q9967

== ENCOUNTER → 2024-06-17 09:04 | Outpatient (BNV) | payer MEDICARE, MEDICAID, SELFPAY | PROVIDERS: Admitting Provider Internal Medicine; Emergency Provider Emergency Medicine; Visit Provider Internal Medicine | DX: R94.31 Abnormal electrocardiogram [ECG] [EKG] (principal) | CPT/HCPCS: 93010 ==

== ENCOUNTER 2024-06-17 16:51 | Outpatient (BNV) | payer MEDICARE, MEDICAID, SELFPAY | END 2024-06-20 07:00 | PROVIDERS: Admitting Provider Internal Medicine; Emergency Provider Emergency Medicine; Visit Provider Internal Medicine Cardiovascular Disease | DX: I27.20 Pulmonary hypertension, unspecified (principal) | CPT/HCPCS: 93306 ==

== ENCOUNTER 2024-06-17 16:51 | Outpatient (BNV) | payer MEDICARE, MEDICAID, SELFPAY | END 2024-06-19 14:31 | PROVIDERS: Admitting Provider Internal Medicine; Emergency Provider Emergency Medicine; Visit Provider Internal Medicine Cardiovascular Disease | DX: R94.31 Abnormal electrocardiogram [ECG] [EKG] (principal) | CPT/HCPCS: 93010 ==

== ENCOUNTER → 2024-06-17 16:51 | Outpatient (BNV) | payer MEDICARE, MEDICAID, SELFPAY | PROVIDERS: Admitting Provider Internal Medicine; Emergency Provider Emergency Medicine; Visit Provider Internal Medicine Cardiovascular Disease | DX: K92.2 Gastrointestinal hemorrhage, unspecified (principal); I47.29 Other ventricular tachycardia | CPT/HCPCS: 99222 ==

== ENCOUNTER → 2024-06-17 16:51 | Outpatient (BNV) | payer MEDICARE, MEDICAID, SELFPAY | PROVIDERS: Admitting Provider Internal Medicine; Emergency Provider Emergency Medicine; Visit Provider Internal Medicine | DX: K92.2 Gastrointestinal hemorrhage, unspecified (principal); N17.9 Acute kidney failure, unspecified; E87.21 Acute metabolic acidosis | CPT/HCPCS: 99222; 99231; 99232; 99239 ==

== ENCOUNTER 2024-06-24 07:16 | Outpatient (REF) | payer MEDICARE, MEDICAID, SELFPAY ==
[2024-06-24 08:34] LABS: Hematocrit 28.2 % (42.0-52.0); Hemoglobin 9.7 g/dl (14.0-18.0); Mean Corpuscular HGB Conc 34.4 g/dl (31.0-36.0); Mean Corpuscular Hemoglobin 32.2 pg (27.0-33.0); Mean Corpuscular Volume 93.7 fL (80.0-98.0); Mean Platelet Volume 11.2 fL (9.4-12.4); Platelet Count 144 X10*3/uL (160-400); Red Blood Count 3.01 X10*6/uL (4.60-5.80); Red Cell Distribution Width 13.4 % (11.0-16.0); White Blood Count 5.7 X10*3/uL (4.8-10.8)
[2024-06-24 08:53] LABS: Iron 31 mcg/dL (45-160); Percent Iron Saturation 12 % (15-50); Total Iron Binding Capacity 257 mcg/dL (228-428); Unsaturated Iron Binding 226 ug/dL
[2024-06-24 09:09] LABS: Ferritin 45 ng/mL (20-250)
--- OUTSIDE RECORDS SUMMARY | 2024-06-29 04:47 | XMS_ITS ---
Author Organization [facility] Address [address] [place] [address] Care Team Providers Care Dye Lab Technician Name Role Phone NONE, NONE Primary Care Provider UnavailRandolph De La Rosa Jr Unavailable [phone] REASON FOR VISIT gastric ulcer Encounters Encounter Location Date Provider Diagnosis [facility] [address] [place] [address] [address] [place] [address] 06/28/2024 Randolph Nogueira Jr PLAN OF TREATMENT Next Appt Details Provider Name:Randolph wilkerson Jr, 06/29/2024 09:00:00 AM, [address] [place] [address], [address], [place], [address],
--- OUTSIDE RECORDS SUMMARY | 2024-06-29 04:47 | XMS_ITS | Patient Health Record ---
Author Organization [facility] Address [address] [place] [address] Care Team Providers Care Latex Ribbon Machine Operator Name Role Phone NONE, NONE Primary Care Provider Randolph Salter Jr Unavailable [phone] RESULTS Component Value Reference Range Notes Type and Screen Reviewed date:06/20/2024 09:16:50 AM Interpretation: Performing Lab:[facility], [address] [place] [phone] Notes/Report: Results at Issue Units as of 06/18/24 1158 ... Test View Group: Most Recent HGB HCT Results LABORATORY Date Time Test Result Flag Normal Range 06/18/24 0804 HGB 8.3 L 14.0-18.0 g/dl 06/18/24 0804 HCT 23.7 L 42.0-52.0 % Hgb 7-9 gm na No no Blood Type AP Antibody Screen NEGATIVE Red Blood Cells Reviewed date:06/20/2024 09:16:57 AM Interpretation: Performing Lab:[facility], [address] [place] [phone] Notes/Report: Red Blood Cells [id number] AP RC Red Blood Cells TRANSFUSED 06/18/24 1157 Red Blood Cells [id number] AP RC Red Blood Cells NOT AVAILABLE Pathology Reviewed date:06/24/2024 09:37:10 PM Interpretation: Performing Lab:[facility], [address] [place] [phone] Notes/Report: Complete Blood Count no Diff Reviewed date:06/20/2024 09:16:35 AM Interpretation: Performing Lab:[facility], [address] [place] [phone] Notes/Report: White Blood Count 4.6 4.8-10.8 X10*3/uL Red Blood Count 3.01 4.60-5.80 X10*6/uL Hemoglobin 9.6 14.0-18.0 g/dl Hematocrit 28.1 42.0-52.0 % Mean Corpuscular Volume 93.4 80.0-98.0 fL Mean Corpuscular Hemoglobin 31.9 27.0-33.0 pg Mean Corpuscular HGB Conc 34.2 31.0-36.0 g/dl Red Cell Distribution Width 12.9 11.0-16.0 % Platelet Count 133 160-400 X10*3/uL Mean Platelet Volume 11.0 9.4-12.4 fL NRBC Pct Auto 0.0 0.0-0.2 /100WBC NRBC Abs Auto 0.000 0.0-0.012 X10*3/uL Basic Metabolic Panel Reviewed date:06/20/2024 09:16:43 AM Interpretation: Performing Lab:[facility], [address] [place] [phone] Notes/Report: Sodium 138 135-145 mmol/L Potassium 3.9 3.3-5.1 mmol/L Chloride 105 96-108 mmol/L Carbon Dioxide 26 22-29 mmol/L Anion Gap 11 12-20 Blood Urea Nitrogen 8 9-16 mg/dL Creatinine 0.85 0.5-1.4 mg/dL Creatinine Clr Calc Pharmacy 70.4 eGFR (calculated from the MDRD study equation) and eCrCl (calculated from the Cockcroft-Gault equation) are based on different parameters and may not yield comparable results. If eCrCl result is absurd, please check patient's height/weight. Estimated Glomerular Filt Rate > 60 Chronic Kidney Disease: Estimated GFR < 60 mL/min/1.73m2 Severe Kidney Disease: Estimated GFR < 15 mL/min/1.73m2 Glucose Random 96 60-115 mg/dL Calcium 8.2 8.4-10.2 mg/dL Complete Blood Count no Diff Reviewed date:06/24/2024 09:37:45 PM Interpretation: Performing Lab:[facility], [address] [place] [phone] Notes/Report: White Blood Count 5.7 4.8-10.8 X10*3/uL Red Blood Count 3.01 4.60-5.80 X10*6/uL Hemoglobin 9.7 14.0-18.0 g/dl Hematocrit 28.2 42.0-52.0 % Mean Corpuscular Volume 93.7 80.0-98.0 fL Mean Corpuscular Hemoglobin 32.2 27.0-33.0 pg Mean Corpuscular HGB Conc 34.4 31.0-36.0 g/dl Red Cell Distribution Width 13.4 11.0-16.0 % Platelet Count 144 160-400 X10*3/uL Mean Platelet Volume 11.2 9.4-12.4 fL NRBC Pct Auto 0.0 0.0-0.2 /100WBC NRBC Abs Auto 0.000 0.0-0.012 X10*3/uL IRON PROFILE Reviewed date:06/24/2024 09:36:37 PM Interpretation: Performing Lab:[facility], [address] [place] [phone] Notes/Report: Iron 31 45-160 mcg/dL Total Iron Binding Capacity 257 228-428 mcg/dL Percent Iron Saturation 12 15-50 % Unsaturated Iron Binding 226 Ferritin Reviewed date:06/24/2024 09:37:24 PM Interpretation: Performing Lab:[facility], [address] [place] [phone] Notes/Report: Ferritin 45 20-250 ng/mL REASON FOR REFERRAL No Information SOCIAL HISTORY Sex Assigned At : Social History Observation Description Sex Assigned At Unknown PROBLEMS Problem Type ICD Code Onset Dates Problem Status W/U Status Risk SNOMED Code Notes Problem Acute gastric ulcer with hemorrhage (K25.0) Active confirmed 01549719 Encounters Encounter Location Date Provider Diagnosis [facility] [address] [place] [address] 06/29/2024 Randolph Nogueira Jr [facility] [address] [place] [address] 06/22/2024 Randolph Nogueira Jr Acute gastric ulcer with hemorrhage K25.0 [facility] [address] [place] [address] 06/28/2024 Randolph Nogueira Jr ASSESSMENTS Encounter Date Diagnosis Assessment Notes Treatment Notes Treatment Clinical Notes 06/22/2024 Acute gastric ulcer with hemorrhage (ICD-10 - K25.0) PLAN OF TREATMENT Pending Test Test Name Order Date IRON + IBC (FE) 06/22/2024 FERRITIN 06/22/2024 CBC w/o DIFF 06/22/2024 Next Appt Details Provider Name:Randolph wilkerson Jr, 06/29/2024 09:00:00 AM, [address], [address], [place], [address], Insurance Providers Payer Name Payer Address Payer Phone Subscriber Number Group Number Insured Name Patient Relationship to Insured Coverage Start Date Coverage End Date MEDICARE OF [place] [address] [place] [id number] ТАТЬЯНА NUGENT Self - patient is the insured MEDICAID OF [facility] [employer] [facility] [address] [place] [address] [id number] ТАТЬЯНА NUGENT Self - patient is the insured
--- OUTSIDE RECORDS SUMMARY | 2024-06-29 04:47 | XMS_ITS ---
Author Organization [facility] Address [address] [place] [address] Care Team Providers Care Information Systems Security Analyst Name Role Phone NONE, NONE Primary Care Provider Randolph Salter Jr [phone] REASON FOR VISIT pt seen in hospital/f/u appt? PROBLEMS Problem Type ICD Code Onset Dates Problem Status W/U Status Risk SNOMED Code Notes Problem Acute gastric ulcer with hemorrhage (K25.0) Active confirmed 30263097 Encounters Encounter Location Date Provider Diagnosis [facility] [address] [place] [address] 06/22/2024 Randolph Nogueira Jr Acute gastric ulcer with hemorrhage K25.0 ASSESSMENTS Encounter Date Diagnosis Assessment Notes Treatment Notes Treatment Clinical Notes 06/22/2024 Acute gastric ulcer with hemorrhage (ICD-10 - K25.0) PLAN OF TREATMENT Pending Test Test Name Order Date IRON + IBC (FE) 06/22/2024 FERRITIN 06/22/2024 CBC w/o DIFF 06/22/2024 Next Appt Details Provider Name:Randolph wilkerson Jr, 06/29/2024 09:00:00 AM, [address] [place] [address], [address], [place], [address],
== END 2024-06-24 07:17 | disposition home or self-care (01) ==
LOC: HO.LAB 07:16
PROVIDERS: Visit Provider Internal Medicine Gastroenterology
DX: K25.0 Acute gastric ulcer with hemorrhage (principal)
CPT/HCPCS: 36415; 82728; 83540; 85027

== ENCOUNTER 2024-07-04 07:42 | Outpatient (REF) | payer MEDICARE, MEDICAID, SELFPAY ==
--- OUTSIDE RECORDS SUMMARY | 2024-07-04 07:45 | XMS_ITS ---
Author Organization [facility] Address [address] [place] [address] Care Team Providers Care Cooler Service Supervisor Name Role Phone NONE, NONE Primary Care Provider Randolph Salter Jr Unavailable ALLERGIES No Known Allergies REASON FOR VISIT [...] Problem Colon cancer screening (Z12.11) Active confirmed [id number] VITAL SIGNS BMI 25.38 kg/m2 06/29/2024 Blood pressure systolic 00 mm Hg 06/29/20 24 Blood pressure diastolic 00 mm Hg 024 Height 5 ft 11 in in 06/29/2024 Weight 182 lbs 06/29/2024 Encounters Encounter Location Date Provider Diagnosis [facility] [address] [place] [address] 06/29/2024 Randolph Nogueira Jr Acute gastric ulcer [...] Provider Name:Randolph wilkerson Jr, 08/26/2024 10:00:00 AM, [address] [place] [address] , [place], [place], [phone], Progress Notes * Examination Category Sub-Category Detail [...]
--- OUTSIDE RECORDS SUMMARY | 2024-07-04 07:45 | XMS_ITS ---
Author Organization [facility] Address [address] [place] [phone] Care Team Providers Care Solar Manager Name Role Phone NONE, NONE Primary Care Provider Randolph Salter Jr Unavailable REASON FOR VISIT pt seen in hospital/f/u appt? PROBLEMS Problem Type ICD Code Onset Dates Problem Status W/U Status Risk SNOMED Code Notes Problem Acute gastric ulcer with hemorrhage (K25.0) Active confirmed [id number] Encounters Encounter Location Date Provider Diagnosis [facility] [address] [place] [phone] 06/22/2024 Randolph Nogueira Jr Acute gastric ulcer with hemorrhage K25.0 ASSESSMENTS Encounter Date Diagnosis Assessment Notes Treatment Notes Treatment Clinical Notes 06/22/2024 Acute gastric ulcer with hemorrhage (ICD-10 - K25.0) PLAN OF TREATMENT Pending Test Test Name Order Date IRON + IBC (FE) 06/22/2024 FERRITIN 06/22/2024 CBC w/o DIFF 06/22/2024 Next Appt Details Provider Name:Randolph wilkerson Jr, 08/26/2024 10:00:00 AM, [address] [place] [address] , [place], [place], [phone],
--- OUTSIDE RECORDS SUMMARY | 2024-07-04 07:45 | XMS_ITS ---
Author Organization [facility] Address [address] [place] [address] Care Team Providers Care Research Manager Name Role Phone NONE, NONE Primary Care Provider Nakul Nogueira Jr, Randolph Unavailable REASON FOR VISIT gastric ulcer Encounters Encounter Location Date Provider Diagnosis [facility] [address] [facility] [address] [place] [phone] 06/28/2024 Randolph Nogueira Jr PLAN OF TREATMENT Next Appt Details Provider Name:Randolph wilkerson Jr, 08/26/2024 10:00:00 AM, [address] [place] [address] , [place], [place], [phone],
--- OUTSIDE RECORDS SUMMARY | 2024-07-04 07:46 | XMS_ITS | Patient Health Record ---
Author Organization [facility] Address [address] [place] [address] Care Team Providers Care Arts Administrator Or Manager Name Role Phone NONE, NONE Primary Care Provider Randolph Salter Jr Unavailable ALLERGIES No Known Allergies RESULTS Component Value Reference Range Notes Type and Screen Reviewed date:06/20/2024 09:16:50 AM Interpretation: Performing Lab:[facility], [address] [place] [phone] Notes/Report: Results at Issue Units as of 06/18/24 1158 ... Test View Group: Most Recent HGB HCT Results LABORATORY Date Time Test Result Flag Normal Range 06/18/24 0804 HGB 8.3 L 14.0-18.0 g/dl 06/18/24 0804 HCT 23.7 L 42.0-52.0 % Hgb 7-9 gm na No no Blood Type AP Antibody Screen NEGATIVE Red Blood Cells Reviewed date:06/20/2024 09:16:57 AM Interpretation: Performing Lab:[address] [address] Notes/Report: Red Blood Cells [id number] AP RC Red Blood Cells TRANSFUSED 06/18/24 1157 Red Blood Cells [id number] AP RC Red Blood Cells NOT AVAILABLE Pathology Reviewed date:06/24/2024 09:37:10 PM Interpretation: Performing Lab:[facility], [address] [place] [phone] Notes/Report: Complete Blood Count no Diff Reviewed date:06/20/2024 09:16:35 AM Interpretation: Performing Lab:[facility], [address] [place] [phone] Notes/Report: White Blood Count 4.6 4.8-10.8 X10*3/uL [...] Panel Reviewed date:06/20/2024 09:16:43 AM Interpretation: Performing Lab:[facility], [address] [place] [phone] Notes/Report: Sodium 138 135-145 mmol/L Potassium 3.9 [...] Diff Reviewed date:06/24/2024 09:37:45 PM Interpretation: Performing Lab:[facility], [address] [place] [phone] Notes/Report: White Blood Count 5.7 4.8-10.8 X10*3/uL [...] PROFILE Reviewed date:06/24/2024 09:36:37 PM Interpretation: Performing Lab:[facility], [address] [place] [phone] Notes/Report: Iron 31 45-160 mcg/dL Total Iron Binding Capacity 257 228-428 mcg/dL Percent Iron Saturation 12 15-50 % Unsaturated Iron Binding 226 Ferritin Reviewed date:06/24/2024 09:37:24 PM Interpretation: Performing Lab:[facility], [address] [place] [phone] Notes/Report: Ferritin 45 20-250 ng/mL REASON FOR [...] gastric ulcer with hemorrhage (K25.0) Active confirmed 39108508 Problem Colon cancer screening (Z12.11) Active confirmed 192772212 VITAL SIGNS Blood pressure diastolic 00 mm Hg 06/29/2024 Height 5 ft 11 in in 06/29/2024 Blood pressure systolic 00 mm Hg 06/29/2024 Weight 182 lbs 06/29/2024 BMI 25.38 kg/m2 06/29/2024 Encounters Encounter Location Date Provider Diagnosis [facility] [address] [place] [phone] 06/29/2024 Randolph Nogueira Jr Acute gastric ulcer with hemorrhage K25.0 and Colon cancer screening Z12.11 [facility] [address] [place] [phone] 06/22/2024 Randolph Nogueira Jr Acute gastric ulcer with hemorrhage K25.0 [facility] [address] [place] [phone] 06/28/2024 Randolph Nogueira Jr ASSESSMENTS Encounter Date [...] 06/22/2024 IRON + IBC (FE) 06/29/2024 FERRITIN 06/22/2024 FERRITIN 06/29/2024 CBC w/o DIFF 06/29/2024 CBC w/o DIFF 06/22/2024 Future Test Test Name Order Date UPPER GI ENDOSCOPY 06/29/2024 Next Appt Details Provider Name:Randolphroc wilkerson Jr, 08/26/2024 10:00:00 AM, [address] [facility] , [place], [place], [phone], Insurance Providers Payer Name Payer Address Payer Phone Subscriber Number Group Number Insured Name Patient Relationship to Insured Coverage Start Date Coverage End Date MEDICARE OF [place] [address] [place] [id number] [id number] ТАТЬЯНА [place] Self - patient is the insured MEDICAID OF [facility] [address] [place] [address] [id number] ТАТЬЯНА [place] Self - patient is the insured MEDICAL (GENERAL) HISTORY Medical History History ICD Code GI bleed with gastric ulcer 07/12 Surgical History Surgery Date(Month/Year) HERNIA REPAIR BILATERAL AGE 4
[2024-07-04 07:55] LABS: MANUAL DIFF FLAG NO
[2024-07-04 08:29] LABS: Basophils Percent Auto 0.5 % (0-2); Eosinophils Absolute Auto 0.1 X10*3/uL (0.0-0.4); Eosinophils Percent Auto 0.9 % (0-4); Hemoglobin 10.8 g/dl (14.0-18.0); Imm Gran Abs Auto 0.03 X10*3/uL (0.00-0.03); Imm Gran Pct Auto 0.5 % (0.0-0.4); Mean Corpuscular HGB Conc 31.8 g/dl (31.0-36.0); Mean Corpuscular Hemoglobin 30.6 pg (27.0-33.0); Mean Corpuscular Volume 96.3 fL (80.0-98.0); Mean Platelet Volume 11.6 fL (9.4-12.4); Monocytes Absolute Auto 0.3 X10*3/uL (0.1-1.2); Monocytes Percent Auto 5.1 % (2-11); Neutrophils Absolute Auto 4.3 x10*3/uL (2.0-8.3); Platelet Count 149 X10*3/uL (160-400); Red Blood Count 3.53 X10*6/uL (4.60-5.80); Red Cell Distribution Width 13.7 % (11.0-16.0); White Blood Count 5.7 X10*3/uL (4.8-10.8)
[2024-07-04 08:54] LABS: Iron 103 mcg/dL (45-160); Percent Iron Saturation 36 % (15-50); Total Iron Binding Capacity 283 mcg/dL (228-428); Unsaturated Iron Binding 180 ug/dL
[2024-07-04 09:09] LABS: Ferritin 27 ng/mL (20-250)
== END 2024-07-04 07:43 | disposition home or self-care (01) ==
LOC: HO.LAB 07:42
PROVIDERS: Visit Provider Internal Medicine Gastroenterology
DX: K25.0 Acute gastric ulcer with hemorrhage (principal)
CPT/HCPCS: 36415; 82728; 83540; 85025

== ENCOUNTER 2024-07-20 11:11 | Inpatient (IN) | payer MEDICARE, OTHER, SELFPAY ==
[2024-07-20] VITALS (11 sets, daily range): BP systolic 101–123; BP diastolic 66–83; PULSE 85–181; RESP 18–20; TEMP 36.3–37.1; O2SAT 96–99; BMI 27.2
--- NOTE | ~2024-07-20 | CT_ITS ---
CLINICAL HISTORY: dizziness CT of the head without intravenous contrast Comparison: CT/SR - CT HEAD/BRAIN WO IV CON - 06/17/24 10:57 EST Findings: The ventricles and sulci are prominent, consistent with generalized cerebral parenchymal volume loss. The ventricles are symmetric and the basilar cisterns are intact. Mild periventricular, deep and subcortical white matter hypodensities are nonspecific but statistically reflect the sequela of chronic small vessel ischemic change.Remote left basal ganglia lacunar infarct. No intracranial hemorrhage, extra-axial fluid collection, midline shift or mass-effect is evident. No evidence of acute large vessel or territorial ischemia. Brainstem and cerebellum unremarkable. Vascular calcifications indicate intracranial atherosclerosis. The imaged portion of the paranasal sinuses are clear. No mastoid effusions are demonstrated. The orbital contents are unremarkable. Calvarium is intact. Impression: 1. No CT evidence of acute intracranial abnormality. 2. Cerebral volume loss, intracranial atherosclerotic disease and mild sequela of chronic small vessel ischemic disease. This document has been electronically signed by: Lasha Burns MD on 07/24/2024 12:47:42
--- NOTE | ~2024-07-20 | XR_ITS ---
CLINICAL HISTORY: sob 1 view chest x-ray. Comparison: None Findings: Low lung volumes. Mild pleural-parenchymal disease right lower lobe. Mild atelectasis or infiltrate right mid lung. Bilateral interstitial and bronchial wall thickening. No pneumothorax. Mild cardiomegaly. No midline shift or tracheal deviation. No acute fracture. Impression: 1. Mild pleural-parenchymal disease right lower lobe, Right mid lobe lung atelectasis and or infiltrate and bilateral interstitial and bronchial wall thickening either cardiogenic or pneumonic. This document has been electronically signed by: Lasha Burns MD on 07/24/2024 10:32:00
--- NOTE | 2024-07-20 11:21 | ED_ITS ---
HPI - General Adult General Chief complaint: GI Bleed Stated complaint: rectal bleeding Time Seen by Provider: 07/20/24 14:02 Source: patient and family (patient's nephew) Mode of arrival: ambulatory Limitations: no limitations History of Present Illness ED Provider: Cayla Ray PA-C HPI narrative: Patient is an 79 year old assigned male at with a history of a peptic ulcer and nonsustained ventricular tachycardia presenting to the emergency department today with continued rectal bleeding and weakness. Patient states that over the last few days he has had continued rectal bleeding despite being on the PPI that Dr. Nogueira prescribed after his last admission for this. Patient states when he got up to come back from the waiting room, he became short of breath and more weak. Patient states that during his last admission he spoke to a head of cytogenetics who said he had episodes of an irregular fast rhythm and he started him on metoprolol 12.5 mg BID that he usually takes but did not take this morning. Patient states that he has an appointment with Dr. Wood to address his hemorrhoids on an outpatient basis. Patient denies any history of atrial fibrillation, dizziness, lightheadedness, abdominal pain, nausea, vomiting, fever, chills, blurry vision, double vision, loss of vision, chest pain, difficulty breathing, shortness of breath, back pain, night sweats, pain with urination, increased urinary frequency, increased urinary urgency, syncope or a near syncopal episode, recent trauma or falls, bowel incontinence, bladder incontinence, or any other complaints at this time. Relieving factors: none Exacerbating factors: none Associated symptoms: weakness Treatments prior to arrival: other (12.5mg of metoprolol and PPI) Related Data Home Medications ?Medication ?Instructions ?Recorded ?Confirmed ascorbic acid (vitamin C) 500 mg 500 mg DAILY 07/20/24 tablet (Vitamin C) docusate sodium 100 mg capsule 100 mg PO BID 07/20/24 ferrous sulfate 325 mg (65 mg 325 mg DAILY 07/20/24 iron) tablet omeprazole 40 mg capsule,delayed mg PO 07/20/24 release Previous Rx's ?Medication ?Instructions ?Recorded compr.stocking,knee,long,small #12 ea 06/21/24 ([facility] [place] [facility] [place] [place] folic acid 1 mg tablet 1 mg PO DAILY #30 tabs 06/21/24 metoprolol succinate 25 mg 25 mg PO DAILY #90 tabs 06/21/24 tablet,extended release 24 hr omeprazole 40 mg capsule,delayed 40 mg PO BID #90 caps 06/21/24 release thiamine mononitrate (vit B1) 100 100 mg PO DAILY #30 tabs 06/21/24 mg tablet Allergies Allergy/AdvReac Type Severity Reaction Status Date / Time No Known Allergies Allergy Verified 07/20/24 11:26 Review of Systems 2 Constitutional: Constitutional: Reports no additional constitutional complaints, Denies chills, Denies fever(s), Denies night sweats and Reports weakness Eyes: Eyes: Reports no additional eye complaints, Denies blurry vision, Denies change in vision, Denies diplopia, Denies eye discharge, Denies loss of vision and Denies eye pain ENT: Denies dizziness Cardiovascular: Cardiovascular: Reports no additional cardiovascular complaints, Denies chest pain, Denies lightheadedness, Denies Loss of Consciousness and Denies dyspnea Respiratory: Respiratory: Reports no additional respiratory complaints and Denies dyspnea Gastrointestinal: Gastrointestinal: Reports no additional gastrointestinal complaints, Denies abdominal pain, Denies hematochezia, Denies change in bowel habits and Reports change in stool character Comments: black stools Genitourinary: Genitourinary: Reports no additional male genitourinary complaints, Denies hematuria, Denies oliguria, Denies difficulty urinating, Denies dysuria, Denies urinary frequency, Denies urinary hesitancy, Denies urinary incontinence and Denies urinary urgency Musculoskeletal: Musculoskeletal: Reports no additional musculoskeletal complaints, Denies numbness and Denies tingling Neurologic: Denies dizziness, Denies loss of vision, Denies numbness, Denies tingling and Reports weakness Psychiatric: Psychiatric: Reports no additional psychiatric complaints Endocrine: Endocrine: Reports no additional endocrine complaints Hematologic/Lymphatic: Hematologic/Lymphatic: Reports no additional hematologic/lymphatic complaints Allergic/Immunologic: Allergic/Immunologic: Reports no additional allergic/immunologic complaints PMFSH Past Medical History Attestation statement: The following information was validated with the patient. (all information validated with the patient's nephew) Source: old records reviewed, obtained from family (patient's nephew is provided additional history and confirmed the history provided by the patient) and nursing notes reviewed Medical History (Updated 07/20/24 @ 15:51 by Najma Israel NP) NSVT (nonsustained ventricular tachycardia) Iron deficiency anemia Gastric ulcer Social History Social History Household Members: None Housing: Apartment Do you presently have visiting nurse or other home services: No Alcohol intake: former Patient Tobacco Use Status: Never used Tobacco Smoked in Last 30 Days: No Use of substances other than those prescribed or required for medical reasons: No Advance Directives: No Advance Directives Information Provided: No Do you have a plan to hurt others: No Plan service: No Physical Exam ED Vital Signs: Vital Signs - 24 hr 07/20/24 11:21 07/20/24 14:26 07/20/24 14:29 Temperature 97.7 F Pulse Rate 85 181 H 138 H Respiratory Rate 18 18 20 Blood Pressure 101/83 123/69 117/74 Pulse Oximetry 99 98 97 Oxygen Delivery Method Room Air Room Air Room Air 07/20/24 14:43 07/20/24 15:40 Temperature Pulse Rate 137 H 156 H Respiratory Rate Blood Pressure 117/75 104/82 Pulse Oximetry Oxygen Delivery Method BMI result Body Mass Index 27.2 Const General: cooperative, no acute distress, alert and awake Nutritional Appearance: well nourished Orientation/consciousness: patient oriented x3 Limitations: no limitations HENMT Head: Yes normal to inspection and Yes atraumatic Ears: hearing grossly normal bilaterally and external ears normal General nose exam: Normal external nose present, no nasal discharge noted and no epistaxis Face and sinus: Yes normal facial exam, No abrasion and No laceration Mouth: Normal oral and palatal mucosa present, no drooling and no muffled voice Eyes General: appearance normal, both eyes and all related structures Periorbital: periorbital findings normal Eyelids: Yes eyelids normal Conjunctivae: conjunctivae normal Pupils: Equal, round and reactive pupils present EOM: EOMs intact bilaterally Neck Neck: Yes normal visual inspection, Yes full ROM and Yes no lymphadenopathy Chest Chest palpation & inspection: normal inspection of the chest Resp Effort & Inspection: normal respiratory effort and able to speak in complete sentences Cardio Rate: tachycardic Rhythm: abnormal rhythm irregularly irregular GI Other: rectal examination was largely unremarkable - internal hemorrhoids felt but stool was brown Inspection: Yes normal to inspection Neuro General: patient oriented x3 and moves all extremities Cranial nerves: Yes Equal, round and reactive pupils present Cognition (Neuro): normal cognition Extrem General: Yes normal to inspection, Yes full ROM and Yes capillary refill normal Psych Appearance: grossly normal Mental Status: mental status grossly normal Affect: normal affect Attitude: cooperative Thought process: Normal thought process present Thought content: Normal thought content present Insight: Good insight present (Psych) Course Course Course Narrative: RME, this is a rapid medical exam performed by Manjit Ramachandran please refer to primary provider for complete H&P- 79-year-old male past medical history significant for known bleeding stomach ulcers, recent admission on 06/17/2024 for same presents for evaluation of black and bloody stool. He reports that he has history rectal bleeding with hemorrhoids as well. Symptoms started 4 days ago. He does have some abdominal pain after eating. He is not anticoagulated. Plan for labs including type and screen and coags. Medications Administered Generic Name Dose Route Start Last Admin Trade Name Freq PRN Reason Stop Dose Admin Diltiazem HCl 125 mg/ Sodium 125 mls @ 0 mls/hr 07/20/24 15:30 07/20/24 15:40 Chloride IVCONT 10 mg/hr .Q0M GISELA 10 mls/hr Administration Protocol Per Protocol Discontinued Medications Generic Name Dose Route Start Last Admin Trade Name Freq PRN Reason Stop Dose Admin Sodium Chloride 1,000 mls @ 999 mls/hr 07/20/24 14:30 07/20/24 15:34 Ns IV 07/20/24 15:30 Infused .Q1H1M GISELA Infusion Metoprolol Succinate 25 mg 07/20/24 14:34 07/20/24 14:43 Metoprolol Succinate Er 25 Mg Tab.Er.24h PO 07/20/24 14:35 25 mg ONCE ONE Administration Protocol Metoprolol Tartrate 5 mg 07/20/24 14:11 07/20/24 14:27 Metoprolol Tartrate 5 Mg/5 Ml Vial IVPUSH 07/20/24 14:12 5 mg ONCE ONE Administration Protocol Medical Decision Making Medical Decision Making [facility] Narrative: Patient is an 79 year old assigned male at with a history of a peptic ulcer and nonsustained ventricular tachycardia presenting to the emergency department today with continued rectal bleeding and weakness. Patient's physical exam was as noted in the physical exam portion of this note. Patient's blood work was unremarkable. Patient's initial EKG showed atrial fibrillation with rapid ventricular response at 153. Patient's heart rate was as high as 170s. Patient was given 5mg of IV lopressor which decreased his heart rate some. Patient was then given 25mg of PO ER Metoprolol and his rate increased further. Repeat EKG showed atrial fibrillation with rapid ventricular response at 135bpm. I consulted with Dr. Yi who recommended continued rate control with IV cardizem and lopressor. Patient started on a cardizem drip. I spoke with the hospitalist team who agreed to admission. I explained my physical exam findings as well as all test results to the patient and the patient's nephew. I answered all questions asked by the patient and the patient's nephew. Patient and the patient's nephew verbalized agreement and understanding with this treatment plan and admission. Differential Diagnosis Differential Diagnoses: The differential diagnosis associated with the presentation includes Atrial fibrillation with rapid ventricular response New onset of atrial fibrillation Weakness Upper GI bleeding GI bleeding Hemorrhoids Admission/Observation Consideration of admission/observation: Escalation of care including admission/observation considered Patient admitted as noted in the MDM Rationale portion of this note. Consult Healthcare Provider Management of the patient was discussed with: Hospitalist (agreed to admission as noted in the MDM Rationale portion of this note.) and Splicer Operator (spoke to the head of cytogenetics distribution systems serviceperson as noted in the MDM Rationale portion of thisnote.) Lab Data [facility] Lab Attestation statement: I reviewed the patient's lab results. My interpretation of these results are in the MDM Rationale portion of this note. 07/20/24 14:41 07/20/24 11:46 Labs: Lab Results 07/20/24 07/20/24 07/20/24 Range/Units 11:46 12:00 14:41 WBC 5.4 5.8 (4.8-10.8) X10*3/uL RBC 4.23 L 3.76 L (4.60-5.80) X10*6/uL Hgb 12.6 L 11.3 L (14.0-18.0) g/dl Hct 39.6 L 35.2 L (42.0-52.0) % MCV 93.6 93.6 (80.0-98.0) fL MCH 29.8 30.1 (27.0-33.0) pg MCHC 31.8 32.1 (31.0-36.0) g/dl RDW 13.8 13.8 (11.0-16.0) % Plt Count 139 L 126 L (160-400) X10*3/uL MPV 11.6 11.7 (9.4-12.4) fL Immature Gran % (Auto) 0.4 0.3 (0.0-0.4) % Neut % (Auto) 69.6 72.5 (45-73) % Lymph % (Auto) 21.7 19.8 L (20-40) % [place] % (Auto) 6.3 6.0 (2-11) % Eos % (Auto) 1.3 0.7 (0-4) % Baso % (Auto) 0.7 0.7 (0-2) % Lymph # (Auto) 1.2 1.2 (1.2-4.9) X10*3/uL [place] # (Auto) 0.3 0.4 (0.1-1.2) X10*3/uL Eos # (Auto) 0.1 0.0 (0.0-0.4) X10*3/uL Baso # (Auto) 0.0 0.0 (0.0-0.2) X10*3/uL Abs Immat Gran (auto) 0.02 0.02 (0.00-0.03) X10*3/uL Absolute Neuts (auto) 3.8 4.2 (2.0-8.3) x10*3/uL Absolute Nucleated RBC 0.000 0.000 (0.0-0.012) X10*3/uL Nucleated RBC % (auto) 0.0 0.0 (0.0-0.2) /100WBC PT 13.8 H (10.9-12.4) SEC INR 1.2 H (0.9-1.1) Sodium 143 (135-145) mmol/L Potassium 3.7 (3.3-5.1) mmol/L Chloride 111 H (96-108) mmol/L Carbon Dioxide 25 (22-29) mmol/L Anion Gap 11 L (12-20) BUN 10 (9-16) mg/dL Creatinine 1.07 (0.5-1.4) mg/dL Estim Creat Clear Calc 58.6 Estimated GFR > 60 Random Glucose 101 (60-115) mg/dL Calcium 7.7 L D (8.4-10.2) mg/dL Magnesium 2.1 (1.6-2.6) mg/dL Total Bilirubin 0.6 (0.0-1.0) mg/dL AST 17 (5-37) U/L ALT 13 (0-40) U/L Alkaline Phosphatase 86 (39-117) U/L Total Protein 5.7 L (6.5-8.0) g/dL Albumin 3.2 L (3.5-5.0) g/dL Lipase 35 (8-78) U/L Blood Type A Positive Antibody Screen NEGATIVE Independent Interpretation I performed an independent interpretation of an: EKG Interpretation: Vent. Rate: 158 BPM Atrial Rate: 144 BPM P-R Int: 000 ms QRS Dur: 090 ms QT Int: 314 ms P-R-T Axes: 000 -22 036 degrees QTc Int: 509 ms Undetermined rhythm Possible Anterior infarct , age undetermined When compared with ECG of 19-JUN-2024 14:31, Current undetermined rhythm precludes rhythm comparison, needs review Nonspecific T wave abnormality now evident in Lateral leads DD/ 1150 Vent. Rate: 135 BPM Atrial Rate: 079 BPM P-R Int: 000 ms QRS Dur: 094 ms QT Int: 338 ms P-R-T Axes: 000 -19 017 degrees QTc Int: 507 ms Undetermined rhythm Incomplete right bundle branch block When compared with ECG of 20-JUL-2024 14:10, Current undetermined rhythm precludes rhythm comparison, needs review DD/ 1507 Independent Historian Clinical information obtained from an independent historian. History obtained from or confirmed by: Other (patient's nephew provided additional history and confirmed the history provided by the patient.) Critical Care Time Critical Care Time Critical Care Time: Yes Total Critical Care Time: 48 Attestation: I spent 48 minutes of Critical Care Time with this patient. This does not include time spent on separately reported billable procedures. Discharge Plan Discharge Clinical Impression: Atrial fibrillation with RVR, Weakness Patient Disposition: Admitted As Inpatient Print Language: Kiswahili
--- NOTE | 2024-07-20 11:26 | ECG_ITS ---
Test Reason : GI BLEED Blood Pressure : / mmHG Vent. Rate : 158 BPM Atrial Rate : 144 BPM P-R Int : 000 ms QRS Dur : 090 ms QT Int : 314 ms P-R-T Axes : 000 -22 036 degrees QTc Int : 509 ms Atrial fibrillation with rapid ventricular response Possible Anterior infarct , age undetermined Abnormal ECG When compared with ECG of 19-JUN-2024 14:31, Atrial fibrillation with rapid ventricular response has replaced Normal sinus rhythm Nonspecific T wave abnormality now evident in Lateral leads Referred By: Jonathan Ramachandran Electronically Signed By:MENDEZ HEARD MD
[2024-07-20 12:04] LABS: MANUAL DIFF FLAG NO
[2024-07-20 12:07] LABS: Basophils Percent Auto 0.7 % (0-2); Eosinophils Absolute Auto 0.1 X10*3/uL (0.0-0.4); Eosinophils Percent Auto 1.3 % (0-4); Hematocrit 39.6 % (42.0-52.0); Hemoglobin 12.6 g/dl (14.0-18.0); Imm Gran Abs Auto 0.02 X10*3/uL (0.00-0.03); Imm Gran Pct Auto 0.4 % (0.0-0.4); Lymphocytes Absolute Auto 1.2 X10*3/uL (1.2-4.9); Lymphocytes Percent Auto 21.7 % (20-40); Mean Corpuscular HGB Conc 31.8 g/dl (31.0-36.0); Mean Corpuscular Hemoglobin 29.8 pg (27.0-33.0); Mean Corpuscular Volume 93.6 fL (80.0-98.0); Mean Platelet Volume 11.6 fL (9.4-12.4); Monocytes Absolute Auto 0.3 X10*3/uL (0.1-1.2); Monocytes Percent Auto 6.3 % (2-11); Neutrophils Absolute Auto 3.8 x10*3/uL (2.0-8.3); Neutrophils Percent Auto 69.6 % (45-73); Platelet Count 139 X10*3/uL (160-400); Red Blood Count 4.23 X10*6/uL (4.60-5.80); Red Cell Distribution Width 13.8 % (11.0-16.0); White Blood Count 5.4 X10*3/uL (4.8-10.8)
[2024-07-20 12:18] LABS: Alanine Aminotransferase 13 U/L (0-40); Albumin Level 3.2 g/dL (3.5-5.0); Alkaline Phosphatase 86 U/L (39-117); Anion Gap 11 (12-20); Aspartate Amino Transferase 17 U/L (5-37); Bilirubin Total 0.6 mg/dL (0.0-1.0); Blood Urea Nitrogen 10 mg/dL (9-16); Calcium 7.7 mg/dL (8.4-10.2); Carbon Dioxide 25 mmol/L (22-29); Chloride 111 mmol/L (96-108); Creatinine Clr Calc Pharmacy 58.6; Estimated Glomerular Filt Rate > 60; Glucose Random 101 mg/dL (60-115); Lipase 35 U/L (8-78); Potassium 3.7 mmol/L (3.3-5.1); Sodium 143 mmol/L (135-145); Total Protein 5.7 g/dL (6.5-8.0)
[2024-07-20 12:24] LABS: INTERNATIONAL NORM RATIO 1.2 (0.9-1.1); Prothrombin Time 13.8 SEC (10.9-12.4)
--- OUTSIDE RECORDS SUMMARY | 2024-07-20 13:59 | XMS_ITS ---
Author Organization [facility] Address [address] [place] [address] Care Team Providers Care Purchasing Administrator Name Role Phone NONE, NONE Primary Care Provider Nakul Nogueira Jr, Randolph Unavailable REASON FOR VISIT gastric ulcer Encounters Encounter Location Date Provider Diagnosis [facility] [address] [facility] [address] [place] [phone] 06/28/2024 Randolph Nogueira Jr PLAN OF TREATMENT Next Appt Details Provider Name:Randolph wilkerson Jr, 08/26/2024 10:00:00 AM, [address] [place] [address] , [place], [place], [phone],
--- OUTSIDE RECORDS SUMMARY | 2024-07-20 13:59 | XMS_ITS ---
Author Organization [facility] Address [address] [place] [address] Care Team Providers Care Sql Database Developer Name Role Phone NONE, NONE Primary Care [...] Problem Colon cancer screening (Z12.11) Active confirmed [id number] VITAL SIGNS BMI 25.38 kg/m2 06/29/2024 Blood pressure systolic 00 mm Hg 06/29/20 24 Blood pressure diastolic 00 mm Hg 024 Height 5 ft 11 in in 06/29/2024 Weight 182 lbs 06/29/2024 Encounters Encounter Location Date [facility] [address] [place] [address] 06/29/2024 Randolph Nogueira Jr Acute gastric ulcer [...] Provider Name:Randolph wilkerson Jr, 08/26/2024 10:00:00 AM, [address] [place] [address] , [place], [place], [phone], Progress Notes * Examination Category Sub-Category Detail Notes General Examination GENERAL APPEARANCE: in no ac [place] distress HEAD: normocephalic EYES: sclera non-icteric NECK/THYROID: no lymphadenopathy HEART: S1, S2 normal, no mu rmurs CHEST: normal shape and exp ansion LUNGS: clear to auscultatio n bilaterally ABDOMEN: soft, nontender, non distended, bowel sounds present, no organomegaly SKIN: anicteric EXTREMITIES: no clubbing, cyanosi s, or edema PSYCH: cognitive function i ntact ORAL CAVITY: mucosa moist
--- OUTSIDE RECORDS SUMMARY | 2024-07-20 14:00 | XMS_ITS | Patient Health Record ---
Author Organization [facility] Address [address] [place] [address] Care Team Providers Care Fur Weigher Name Role Phone NONE, NONE Primary Care Provider Randolph Salter Jr Unavailable ALLERGIES No Known Allergies RESULTS Component Value Reference Range Notes Type and Screen Reviewed date:06/20/2024 09:16:50 AM Interpretation: Performing Lab:[facility], [address] [place] [phone] Notes/Report: Results at Issue Units as of 06/18/24 1158 ... Test View Group: Most Recent HGB HCT Results LABORATORY Date Time Test Result Flag Normal Range 06/18/24 0804 HGB 8.3 L 14.0-18.0 g/dl 06/18/24 0804 HCT 23.7 L 42.0-52.0 % Hgb 7-9 gm na No no Blood Type AP Antibody Screen NEGATIVE Red Blood Cells Reviewed date:06/20/2024 09:16:57 AM Interpretation: Performing Lab:[address] [phone] Notes/Report: Red Blood Cells [id number] AP RC Red Blood Cells TRANSFUSED 06/18/24 1157 Red Blood Cells [id number] AP RC Red Blood Cells NOT AVAILABLE Pathology Reviewed date:06/24/2024 09:37:10 PM Interpretation: Performing Lab:[facility], [address] [place] [phone] Notes/Report: Complete Blood Count no Diff Reviewed date:06/20/2024 09:16:35 AM Interpretation: Performing Lab:[facility], [address] [place] [phone] Notes/Report: White Blood Count 4.6 4.8-10.8 X10*3/uL [...] Panel Reviewed date:06/20/2024 09:16:43 AM Interpretation: Performing Lab:[facility], [address] [place] [phone] Notes/Report: Sodium 138 135-145 mmol/L Potassium 3.9 [...] Diff Reviewed date:06/24/2024 09:37:45 PM Interpretation: Performing Lab:[facility], [address] [place] [phone] Notes/Report: White Blood Count 5.7 4.8-10.8 X10*3/uL [...] PROFILE Reviewed date:06/24/2024 09:36:37 PM Interpretation: Performing Lab:[facility], [address] [place] [phone] Notes/Report: Iron 31 45-160 mcg/dL Total Iron Binding Capacity 257 228-428 mcg/dL Percent Iron Saturation 12 15-50 % Unsaturated Iron Binding 226 Ferritin Reviewed date:06/24/2024 09:37:24 PM Interpretation: Performing Lab:[facility], [address] [place] [phone] Notes/Report: Ferritin 45 20-250 ng/mL Complete Blood Count Auto Di ff Reviewed date:07/05/2024 03:41:05 PM Interpretation: Performing Lab:[address] [address] Notes/Report: White Blood Count 5.7 4.8-10.8 X10*3/uL Red Blood Count 3.53 4.60-5.80 X10*6/uL Hemoglobin 10.8 14.0-18.0 g/dl Hematocrit 34.0 42.0-52.0 % Mean Corpuscular Volume 96.3 80.0-98.0 fL Mean Corpuscular Hemoglobin 30.6 27.0-33.0 pg Mean Corpuscular HGB Conc 31.8 31.0-36.0 g/dl Red Cell Distribution Width 13.7 11.0-16.0 % Platelet Count 149 160-400 X10*3/uL Mean Platelet Volume 11.6 9.4-12.4 fL Neutrophils Percent Auto 75.0 45-73 % Imm Gran Pct Auto 0.5 0.0-0.4 % Lymphocytes Percent Auto 18.0 20-40 % Monocytes Percent Auto 5.1 2-11 % Eosinophils Percent Auto 0.9 0-4 % Basophils Percent Auto 0.5 0-2 % NRBC Pct Auto 0.0 0.0-0.2 /100WBC Neutrophils Absolute Auto 4.3 2.0-8.3 x10*3/uL Imm Gran Abs Auto 0.03 0.00-0.03 X10*3/uL Lymphocytes Absolute Auto 1.0 1.2-4.9 X10*3/uL Monocytes Absolute Auto 0.3 0.1-1.2 X10*3/uL Eosinophils Absolute Auto 0.1 0.0-0.4 X10*3/uL Basophils Absolute Auto 0.0 0.0-0.2 X10*3/uL NRBC Abs Auto 0.000 0.0-0.012 X10*3/uL IRON PROFILE Reviewed date:07/05/2024 03:40:58 PM Interpretation: Performing Lab:[address] [address] Notes/Report: Iron 103 45-160 mcg/dL Total Iron Binding Capacity 283 228-428 mcg/dL Percent Iron Saturation 36 15-50 % Unsaturated Iron Binding 180 Ferritin Reviewed date:07/05/2024 03:41:16 PM Interpretation: Performing Lab:[address] [phone] Notes/Report: Ferritin 27 20-250 ng/mL REASON FOR REFERRAL No Information [...] gastric ulcer with hemorrhage (K25.0) Active confirmed [id number] Problem Colon cancer screening (Z12.11) Active confirmed [id number] VITAL SIGNS Blood pressure diastolic 00 mm Hg 06/29/2024 Height 5 ft 11 in in 06/29/2024 Blood pressure systolic 00 mm Hg 06/29/2024 Weight 182 lbs 06/29/2024 BMI 25.38 kg/m2 06/29/2024 Encounters Encounter Location Date Provider Diagnosis [facility] [address] [place] [phone] 06/29/2024 Randolph Nogueira Jr Acute gastric ulcer with hemorrhage K25.0 and Colon cancer screening Z12.11 [facility] [address] [place] [phone] 06/22/2024 Randolph Nogueira Jr Acute gastric ulcer with hemorrhage K25.0 [facility] [address] [place] [phone] 06/28/2024 Randolph Nogueira Jr [facility] [address] [place] [phone] 07/05/2024 Randolph Nogueira Jr ASSESSMENTS Encounter Date Diagnosis [...] Provider Name:Randolphroc wilkerson Jr, 08/26/2024 10:00:00 AM, [address] [place] [address] , [place], [place], [phone], Insurance Providers Payer Name Payer Address Payer Phone Subscriber Number Group Number Insured Name Patient Relationship to Insured Coverage Start Date Coverage End Date MEDICARE OF [place] [address] [place] [address] [id number] Т[place]А [place] Self - patient is the insured MEDICAID OF [facility] [address] [place] [address] [id number] ТАТЬЯНА [place] Self - patient is the insured MEDICAL (GENERAL) HISTORY Medical History History ICD Code GI bleed with gastric ulcer 07/12 Surgical History Surgery Date(Month/Year) HERNIA REPAIR BILATERAL AGE 4
--- NOTE | 2024-07-20 14:05 | ECG_ITS ---
Test Reason : REPEAT Blood Pressure : / mmHG Vent. Rate : 135 BPM Atrial Rate : 079 BPM P-R Int : 000 ms QRS Dur : 094 ms QT Int : 338 ms P-R-T Axes : 000 -19 017 degrees QTc Int : 507 ms Atrial fibrillation with rapid ventricular response Incomplete right bundle branch block Borderline ECG When compared with ECG of 20-JUL-2024 14:10, No significant changes seen Referred By: Cayla Ray Electronically Signed By:MENDEZ HEARD MD
[2024-07-20] MEDS: Metoprolol Tartrate 5 MG/5 ML VIAL IVPUSH (14:27)
[2024-07-20] MEDS: 0.9 % Sodium Chloride 1,000 ML 999 ML IV (14:27)
--- NOTE | 2024-07-20 14:28 | PC.NURSE ---
Brought i nfrom waiting room to ed 16, HR 160-180`s. Patient reports feeling weak, sob, and having head pain. Provider at bedside, 20g placed in right ac.
[2024-07-20 14:32] LABS: Magnesium 2.1 mg/dL (1.6-2.6)
[2024-07-20] MEDS: Metoprolol Succinate ER 25 MG TAB.ER.24H PO (14:43)
[2024-07-20 14:46] LABS: MANUAL DIFF FLAG NO
[2024-07-20 14:50] LABS: Basophils Percent Auto 0.7 % (0-2); Eosinophils Percent Auto 0.7 % (0-4); Hematocrit 35.2 % (42.0-52.0); Hemoglobin 11.3 g/dl (14.0-18.0); Imm Gran Abs Auto 0.02 X10*3/uL (0.00-0.03); Imm Gran Pct Auto 0.3 % (0.0-0.4); Lymphocytes Absolute Auto 1.2 X10*3/uL (1.2-4.9); Lymphocytes Percent Auto 19.8 % (20-40); Mean Corpuscular HGB Conc 32.1 g/dl (31.0-36.0); Mean Corpuscular Hemoglobin 30.1 pg (27.0-33.0); Mean Corpuscular Volume 93.6 fL (80.0-98.0); Mean Platelet Volume 11.7 fL (9.4-12.4); Monocytes Absolute Auto 0.4 X10*3/uL (0.1-1.2); Neutrophils Absolute Auto 4.2 x10*3/uL (2.0-8.3); Neutrophils Percent Auto 72.5 % (45-73); Platelet Count 126 X10*3/uL (160-400); Red Blood Count 3.76 X10*6/uL (4.60-5.80); Red Cell Distribution Width 13.8 % (11.0-16.0); White Blood Count 5.8 X10*3/uL (4.8-10.8)
--- NOTE | 2024-07-20 15:02 | ECG_ITS ---
Test Reason : TACHY Blood Pressure : / mmHG Vent. Rate : 153 BPM Atrial Rate : 113 BPM P-R Int : 000 ms QRS Dur : 092 ms QT Int : 290 ms P-R-T Axes : 000 -19 048 degrees QTc Int : 463 ms Atrial fibrillation with rapid ventricular response Low voltage QRS Incomplete right bundle branch block Borderline ECG When compared with ECG of 20-JUL-2024 11:50, No significant changes seen Nonspecific T wave abnormality no longer evident in Lateral leads Referred By: Cayla Ray Electronically Signed By:MENDEZ HEARD MD
--- NOTE | 2024-07-20 15:35 | PC.NURSE ---
Family member normal can be reached at [phone]
[2024-07-20] MEDS: dilTIAZem HCL 125 MG in 0.9 % Sodium Chloride 100 ML 10 MG IVCONT (15:40)
--- NOTE | 2024-07-20 15:42 | P.HPHOSP_ITS ---
History of Present Illness Date of Service: 07/20/24 Chief Complaint: Rectal bleeding 79-year-old man presented to the ER with continued rectal bleeding and weakness. He was discharged from [facility] on 06/21/2024 and at that time treated for rectal bleeding secondary to gastric ulcer, hemorrhoids and short episode of nonsustained ventricular tachycardia. At that time patient was started on beta blockade but reported that he did not take it this morning. Apparently he had gotten up in the waiting room while in the ED and became short of breath and weak. He was found to be in atrial fibrillation with heart rate as high as 130. He was started on a Cardizem drip. Patient denied any chest pain, dizziness, lightheadedness, nausea, vomiting, diarrhea, blurred vision, headache. In the ED, his H&H is noted to be stable. Plan is to admit patient for treatment of atrial fibrillation with rapid ventricular response and continued rectal bleeding. Review of Systems 2 Review of Systems: Denies any recent fever chills or decrease in appetite respiratory denies any shortness of breath or cough cardiovascular denied chest pain gastrointestinal denies any dysphagia abdominal pain nausea vomiting or diarrhea genitourinary denies any dysuria frequency or hematuria musculoskeletal denies any joint pain or swelling neuropsych denies any weakness or seizures all other systems reviewed are negative [facility] Medical History (Updated 07/20/24 @ 15:51 by Najma sIrael NP) NSVT (nonsustained ventricular tachycardia) Iron deficiency anemia Gastric ulcer Social History Household Members: None Housing: Apartment Do you presently have visiting nurse or other home services: No Alcohol intake: former Patient Tobacco Use Status: Never used Tobacco Smoked in Last 30 Days: No Use of substances other than those prescribed or required for medical reasons: No Advance Directives: No Advance Directives Information Provided: No Do you have a plan to hurt others: No Plan service: No Meds Allergies Allergy/AdvReac Type Severity Reaction Status Date / Time No Known Allergies Allergy Verified 07/20/24 11:26 Active Medications: Current Medications Diltiazem HCl 125 mg/ Sodium (Chloride) 125 mls @ 0 mls/hr IVCONT .Q0M [facility]; Protocol Last Admin: 07/20/24 15:40 Dose: 10 mg/hr, 10 mls/hr Home Medications ?Medication ?Instructions ?Recorded ?Confirmed ?Last Taken ?Type ascorbic acid (vitamin C) 500 mg 500 mg DAILY 07/20/24 Unknown History tablet (Vitamin C) docusate sodium 100 mg capsule 100 mg PO BID 07/20/24 Unknown History ferrous sulfate 325 mg (65 mg 325 mg DAILY 07/20/24 Unknown History iron) tablet omeprazole 40 mg capsule,delayed mg PO 07/20/24 Unknown History release Physical Exam 2 Vital Signs and Narrative: Vital Signs: Last Vital Signs Temp 97.7 F 07/20/24 11:21 Pulse 156 H 07/20/24 15:40 Resp 20 07/20/24 14:29 BP 104/82 07/20/24 15:40 Pulse Ox 97 07/20/24 14:29 O2 Del Method Room Air 07/20/24 14:29 BMI result Body Mass Index 27.2 Appearing in no acute distress head is normocephalic atraumatic eyes pupils are PERRLA sclera is anicteric mouth throat mucous membranes are intact and moist neck is supple no lymphadenopathy, no JVD noted lung sounds are clear to auscultation heart regular rate rhythm, clear S1, S2 positive bowel sounds, abdomen is soft, nontender neuro patient is alert x3, no focal deficits Results Labs 07/20/24 14:41 07/20/24 11:46 Labs: Laboratory Results - last 24 hr 07/20/24 07/20/24 07/20/24 11:46 12:00 14:41 MCV 93.6 93.6 MCH 29.8 30.1 MCHC 31.8 32.1 RDW 13.8 13.8 Plt Count 139 L 126 L MPV 11.6 11.7 Immature Gran % (Auto) 0.4 0.3 Neut % (Auto) 69.6 72.5 Lymph % (Auto) 21.7 19.8 L [place] % (Auto) 6.3 6.0 Eos % (Auto) 1.3 0.7 Baso % (Auto) 0.7 0.7 Lymph # (Auto) 1.2 1.2 [place] # (Auto) 0.3 0.4 Eos # (Auto) 0.1 0.0 Baso # (Auto) 0.0 0.0 Abs Immat Gran (auto) 0.02 0.02 Absolute Neuts (auto) 3.8 4.2 Absolute Nucleated RBC 0.000 0.000 Nucleated RBC % (auto) 0.0 0.0 PT 13.8 H INR 1.2 H Anion Gap 11 L Estim Creat Clear Calc 58.6 Estimated GFR > 60 Random Glucose 101 Calcium 7.7 L D Magnesium 2.1 Total Bilirubin 0.6 AST 17 ALT 13 Alkaline Phosphatase 86 Total Protein 5.7 L Albumin 3.2 L Lipase 35 Blood Type A Positive Antibody Screen NEGATIVE Assessment and Plan (1) NSVT (nonsustained ventricular tachycardia): Status: Inactive (2) Atrial fibrillation with RVR: Status: Acute Plan 79-year-old man admitted with atrial fibrillation with rapid ventricular response and rectal bleeding Atrial fibrillation with rapid ventricular response Recent admission found to have nonsustained V-tach, started on beta-simona as per Cardiology Recent echocardiogram showing EF of 55-60% with noted hypokinesis Now found to be in atrial fibrillation Started on IV Cardizem drip in the ED, continue this with BB Cardiology consultation Monitor on telemetry Rectal bleeding Recent admission for upper GI bleed with endoscopy on 06/18/2024 showing normal esophagus and large gastric ulcer Reported black stool Stable H&H Continue PPI GI consultation Iron-deficiency anemia Continue iron supplementation Hypocalcemia Corrected calcium 8.3 med rec pending DVT prophylaxis with pneumatic compression boots in light of GI bleed Full code Quality Stroke Does the patient have a stroke diagnosis?: No VTE Prior VTE?: No VTE Risk Level:: Medical - moderate - high VTE Device Contraindication: N/A - Device Ordered VTE Drug Contraindication: Treatment Not Indicated
--- NOTE | 2024-07-20 17:36 | PHA.MEDREC ---
Pharmacy Consult ? Medication Reconciliation Pharmacy has completed the medication reconciliation spoke to patient and he wasn't sure, told me to call his daughter Katarina. She was able to confirm all meds and read off a list that she had and the discharge packet from [facility] of 2023 Stated patient only takes tylenol PRN as he shouldn't have ibuprofen.
[2024-07-20] MEDS: dilTIAZem HCL 125 MG in 0.9 % Sodium Chloride 100 ML 15 MG IVCONT (23:33)
[2024-07-20] MEDS: 0.9 % Sodium Chloride Flush 3 ML SYRINGE IVFLUSH (23:35)
[2024-07-21] VITALS (10 sets, daily range): BP systolic 100–126; BP diastolic 64–85; PULSE 83–133; RESP 16–20; TEMP 36.1–36.9; O2SAT 94–97
[2024-07-21] MEDS: Omeprazole 40 MG CAPSULE.DR PO ×2 (06:42→18:09)
[2024-07-21 07:43] LABS: Hematocrit 35.1 % (42.0-52.0); Hemoglobin 11.3 g/dl (14.0-18.0); Mean Corpuscular HGB Conc 32.2 g/dl (31.0-36.0); Mean Corpuscular Hemoglobin 29.9 pg (27.0-33.0); Mean Corpuscular Volume 92.9 fL (80.0-98.0); Mean Platelet Volume 11.4 fL (9.4-12.4); PLT CLUMP 1; Red Blood Count 3.78 X10*6/uL (4.60-5.80); Red Cell Distribution Width 13.8 % (11.0-16.0)
[2024-07-21 07:44] LABS: White Blood Count 4.4 X10*3/uL (4.8-10.8)
[2024-07-21 07:50] LABS: Platelet Count 118 X10*3/uL (160-400)
--- NOTE | 2024-07-21 08:44 | MHC.CM.PN ---
IMM 07/21/24, Pt lives alone, is independent, no home health services or DME. He has a new PCP appt. with Dr. Christophe Tabares on Aug 04. HCP is on file, names his dtr Belinda. Pt. is able to arrange transport home at [place] from his brother or neighbor. DCP: home, self care. CM to follow for DC needs.
[2024-07-21] MEDS: 0.9 % Sodium Chloride Flush 3 ML SYRINGE IVFLUSH ×2 (08:57→18:09)
[2024-07-21] MEDS: dilTIAZem HCL 125 MG in 0.9 % Sodium Chloride 100 ML 15 MG IVCONT (08:57)
[2024-07-21 09:21] LABS: Alanine Aminotransferase 8 U/L (0-40); Albumin Level 3.1 g/dL (3.5-5.0); Alkaline Phosphatase 78 U/L (39-117); Anion Gap 10 (12-20); Aspartate Amino Transferase 15 U/L (5-37); Bilirubin Total 0.8 mg/dL (0.0-1.0); Blood Urea Nitrogen 9 mg/dL (9-16); Calcium 7.9 mg/dL (8.4-10.2); Carbon Dioxide 23 mmol/L (22-29); Chloride 113 mmol/L (96-108); Creatinine Clr Calc Pharmacy 64.6; Estimated Glomerular Filt Rate > 60; Glucose Random 97 mg/dL (60-115); Potassium 3.8 mmol/L (3.3-5.1); Sodium 142 mmol/L (135-145); Total Protein 5.5 g/dL (6.5-8.0)
--- NOTE | 2024-07-21 09:55 | P.CONCA_ITS ---
History of Present Illness History of Present Illness Date of Service: 07/21/24 Requesting physician: Yonis Ravi Consult reason: atrial fibrillation Chief complaint: Atrial fibrillation with rapid ventriclular resp, Narrative: I was consulted to see Geovanni in cardiology consultation today for new onset atrial fibrillation. Patient came to the hospital with symptoms of weakness and rectal bleeding although he says to me that he had black stools. He did not feel lightheaded but felt woozy. He was admitted with last month with syncopal episode after GI bleeding related to gastric ulcer. He was noted to be anemic at that time was maintained with packed RBC transfusion. His hemoglobin remained stable. When he came to the hospital he was noted to be in atrial fibrillation rapid ventricular response. Denies any prolonged fast heart rate or irregular heartbeat or palpitations. Denies any syncopal episode. Denies any chest pain or shortness of breath. Due to persistent elevated heart rate he was admitted to the hospital. He is currently on IV Cardizem drip at 15 mg an hour and remains tachycardic. Again denies any orthopnea, PND. No of atrial fibrillation in the past. Review of Systems 2 Constitutional: Constitutional: Reports weakness Eyes: Eyes: Reports no additional eye complaints Cardiovascular: Cardiovascular: Denies chest pain, Reports lightheadedness, Denies Loss of Consciousness, Denies palpitations and Denies dyspnea Respiratory: Respiratory: Reports no additional respiratory complaints and Denies dyspnea Gastrointestinal: Gastrointestinal: Reports melena Musculoskeletal: Musculoskeletal: Reports no additional musculoskeletal complaints Integumentary/Breasts: Skin/Breast: Reports system reviewed and no additional complaints, except as docu Neurologic: Reports system reviewed and no additional complaints, except as documented and Reports weakness Psychiatric: Psychiatric: Reports no additional psychiatric complaints Endocrine: Endocrine: Denies palpitations Allergic/Immunologic: Allergic/Immunologic: Reports no additional allergic/immunologic complaints [facility] Past Medical History Medical History NSVT (nonsustained ventricular tachycardia) Iron deficiency anemia Gastric ulcer Social History Social History Household Members: None Housing: Apartment Do you presently have visiting nurse or other home services: No Alcohol intake: former Patient Tobacco Use Status: Never used Tobacco service: No Meds Allergies Allergy/AdvReac Type Severity Reaction Status Date / Time No Known Allergies Allergy Verified 07/20/24 11:26 Active Medications: Current Medications Acetaminophen (Acetaminophen 325 Mg Tablet) 650 mg PO Q6H PRN PRN Reason: Pain, Mild 1-3,fever,headache Calcium Carbonate (Calcium Carbonate 750 Mg Tab.Chew) 750 mg PO Q4H PRN PRN Reason: Heartburn Diltiazem HCl 125 mg/ Sodium (Chloride) 125 mls @ 0 mls/hr IVCONT .Q0M [facility]; Protocol Last Admin: 07/21/24 08:57 Dose: 15 mg/hr, 15 mls/hr Magnesium Hydroxide (Milk Of Magnesia 30 Ml Oral.Susp) 30 ml PO DAILY PRN PRN Reason: Constipation Melatonin (Melatonin 3 Mg Tablet) 6 mg PO BEDTIME PRN PRN Reason: Insomnia Omeprazole (Omeprazole 40 Mg Capsule.Dr) 40 mg PO BID@0630,1630 [facility] Last Admin: 07/21/24 06:42 Dose: 40 mg Ondansetron HCl (Ondansetron Hcl 4 Mg/2 Ml Vial) 4 mg IVPUSH Q8H PRN PRN Reason: Nausea and Vomiting Sodium Chloride (0.9 % Sodium Chloride Flush 3 Ml Syringe) 3 ml IVFLUSH QSHIFT [facility] Last Admin: 07/21/24 08:57 Dose: 3 ml Home Medications ?Medication ?Instructions ?Recorded ?Confirmed ?Last Taken ?Type acetaminophen 325 mg tablet 650 mg PO Q6H PRN knee pain 07/20/24 07/20/24 Unknown History docusate sodium 100 mg capsule 100 mg PO DAILY 07/20/24 07/20/24 Unknown History ferrous sulfate 325 mg (65 mg 325 mg DAILY 07/20/24 07/20/24 Unknown History iron) tablet omeprazole 40 mg capsule,delayed 40 mg PO BID@0630,1630 07/20/24 07/20/24 Unknown History release Physical Exam 2 Vital Signs: Vital Signs: Last Vital Signs Temp 98.5 F 07/21/24 09:47 Pulse 114 H 07/21/24 09:47 Resp 16 07/21/24 09:47 BP 106/68 07/21/24 09:47 Pulse Ox 96 07/21/24 09:47 O2 Del Method Room Air 07/21/24 09:47 BMI result Body Mass Index 27.2 Const: General: cooperative, comfortable, no acute distress, alert and awake Nutritional Appearance: average body habitus Orientation/consciousness: p atient oriented x3 HEENT: Head: Yes normocephalic and Yes atraumatic Neck: Neck: Yes trachea midline, Yes supple and Yes no JVD Resp: Effort & Inspection: normal respiratory effort Auscultation: clear to auscultation bilaterally Cardio: Jugular venous distension: no JVD Rate: tachycardic Rhythm: a bnormal rhythm irregularly irregular Heart sounds: S1 normal heart sound present, S2 normal heart sound present, no click, no gallops and no murmurs GI: Auscultation: normal bowel sounds Skin: General skin exam: no rashes or lesions noted Neuro: General: patient oriented x3 and no focal motor deficits Extrem: General: Yes no clubbing, cyanosis or edema Objective Labs and Meds 07/21/24 06:34 07/21/24 08:37 Lab results: Laboratory Results - last 24 hr 07/20/24 07/20/24 07/20/24 11:46 12:00 14:41 WBC 5.4 5.8 RBC 4.23 L 3.76 L Hgb 12.6 L 11.3 L Hct 39.6 L 35.2 L MCV 93.6 93.6 MCH 29.8 30.1 MCHC 31.8 32.1 RDW 13.8 13.8 Plt Count 139 L 126 L MPV 11.6 11.7 Immature Gran % (Auto) 0.4 0.3 Neut % (Auto) 69.6 72.5 Lymph % (Auto) 21.7 19.8 L [place] % (Auto) 6.3 6.0 Eos % (Auto) 1.3 0.7 Baso % (Auto) 0.7 0.7 Lymph # (Auto) 1.2 1.2 [place] # (Auto) 0.3 0.4 Eos # (Auto) 0.1 0.0 Baso # (Auto) 0.0 0.0 Abs Immat Gran (auto) 0.02 0.02 Absolute Neuts (auto) 3.8 4.2 Absolute Nucleated RBC 0.000 0.000 Nucleated RBC % (auto) 0.0 0.0 PT 13.8 H INR 1.2 H Sodium 143 Potassium 3.7 Chloride 111 H Carbon Dioxide 25 Anion Gap 11 L BUN 10 Creatinine 1.07 Estim Creat Clear Calc 58.6 Estimated GFR > 60 Random Glucose 101 Calcium 7.7 L D Magnesium 2.1 Total Bilirubin 0.6 AST 17 ALT 13 Alkaline Phosphatase 86 Troponin I High Sens 6.0 Total Protein 5.7 L Albumin 3.2 L Lipase 35 Blood Type A Positive Antibody Screen NEGATIVE 07/21/24 07/21/24 06:34 08:37 WBC 4.4 L RBC 3.78 L Hgb 11.3 L Hct 35.1 L MCV 92.9 MCH 29.9 MCHC 32.2 RDW 13.8 Plt Count 118 L MPV 11.4 Immature Gran % (Auto) Neut % (Auto) Lymph % (Auto) [place] % (Auto) Eos % (Auto) Baso % (Auto) Lymph # (Auto) [place] # (Auto) Eos # (Auto) Baso # (Auto) Abs Immat Gran (auto) Absolute Neuts (auto) Absolute Nucleated RBC 0.000 Nucleated RBC % (auto) 0.0 PT INR Sodium 142 Potassium 3.8 Chloride 113 H Carbon Dioxide 23 Anion Gap 10 L BUN 9 Creatinine 0.97 Estim Creat Clear Calc 64.6 Estimated GFR > 60 Random Glucose 97 Calcium 7.9 L Magnesium 2.0 Total Bilirubin 0.8 AST 15 ALT 8 Alkaline Phosphatase 78 Troponin I High Sens Total Protein 5.5 L Albumin 3.1 L Lipase Blood Type Antibody Screen Assessment and Plan (1) Atrial fibrillation with RVR: Status: Acute Atrial fibrillation rapid ventricular response in this elderly man without any prior history of atrial fibrillation. He had nonsustained ventricular tachycardia last hospitalization when he was admitted with severe GI bleed. He has had not had any ischemic workup. He currently denies any palpitation. Came in with lightheadedness could be related to atrial fibrillation rapid ventricular response but also could be related to still relative hypovolemia. Check orthostatic vitals. Give IV fluids 1 L over the next 24 hours. Continue monitor hemoglobin hematocrit. He came in with history of black stools although his hemoglobin and hematocrit have remained stable. At this point time rate remains difficult control. I would give him digoxin 0.25 mg IV push Q 6 x 3 doses. Also start him on p.o. metoprolol 12.5 mg q.6 hours. Closely follow blood pressure. Please consult with GI in regards of starting oral anticoagulation therapy if possible. Will follow with you Procedures Date of Service Date of Service: 07/21/24
--- NOTE | 2024-07-21 10:41 | P.PNIM_ITS ---
Subjective Subjective Date of Service: 07/21/24 Interval History: seen and examined denies palp no melena over night reported by RN reports dizziness - ? orthostasis Review of Systems Negative except HPI/interval history. Physical Exam 2 Vital Signs: Vital Signs: Last Vital Signs Temp 98.5 F 07/21/24 09:47 Pulse 114 H 07/21/24 09:47 Resp 16 07/21/24 09:47 BP 106/68 07/21/24 09:47 Pulse Ox 96 07/21/24 09:47 O2 Del Method Room Air 07/21/24 09:47 BMI result Body Mass Index 27.2 Const: Other: General - no acute distress, appears comfortable Cardiovascular - IRR with rates up to 140s Lungs - normal respiratory effort, clear to auscultation bilaterally, no wheezing Abdomen - soft, nontender, no rebound or guarding Extremities - no edema bilaterally Neuro - awake and alert, no focal deficits Objective Data Active Medications Acetaminophen (Acetaminophen 325 Mg Tablet) 650 mg PO Q6H PRN PRN Reason: Pain, Mild 1-3,fever,headache Calcium Carbonate (Calcium Carbonate 750 Mg Tab.Chew) 750 mg PO Q4H PRN PRN Reason: Heartburn Digoxin (Digoxin 0.5 Mg/2 Ml Ampul) 0.25 mg IVPUSH Q6H [facility]; Protocol Stop: 07/21/24 22:46 Diltiazem HCl 125 mg/ Sodium (Chloride) 125 mls @ 0 mls/hr IVCONT .Q0M [facility]; Protocol Last Admin: 07/21/24 08:57 Dose: 15 mg/hr, 15 mls/hr Documented By: JUAN ANTONIO Magnesium Hydroxide (Milk Of Magnesia 30 Ml Oral.Susp) 30 ml PO DAILY PRN PRN Reason: Constipation Melatonin (Melatonin 3 Mg Tablet) 6 mg PO BEDTIME PRN PRN Reason: Insomnia Metoprolol Tartrate (Metoprolol Tartrate 12.5 Mg Halftab) 12.5 mg PO Q6H [facility]; Protocol Omeprazole (Omeprazole 40 Mg Capsule.Dr) 40 mg PO BID@0630,1630 [facility] Last Admin: 07/21/24 06:42 Dose: 40 mg Documented By: ROBIN Ondansetron HCl (Ondansetron Hcl 4 Mg/2 Ml Vial) 4 mg IVPUSH Q8H PRN PRN Reason: Nausea and Vomiting Sodium Chloride (0.9 % Sodium Chloride Flush 3 Ml Syringe) 3 ml IVFLUSH QSHIFT [facility] Last Admin: 07/21/24 08:57 Dose: 3 ml Documented By: JUAN ANTONIO Labs 07/21/24 06:34 07/21/24 08:37 Labs: Laboratory Results - last 24 hr 07/20/24 07/20/24 07/20/24 11:46 12:00 14:41 MCV 93.6 93.6 MCH 29.8 30.1 MCHC 31.8 32.1 RDW 13.8 13.8 Plt Count 139 L 126 L MPV 11.6 11.7 Immature Gran % (Auto) 0.4 0.3 Neut % (Auto) 69.6 72.5 Lymph % (Auto) 21.7 19.8 L [place] % (Auto) 6.3 6.0 Eos % (Auto) 1.3 0.7 Baso % (Auto) 0.7 0.7 Lymph # (Auto) 1.2 1.2 [place] # (Auto) 0.3 0.4 Eos # (Auto) 0.1 0.0 Baso # (Auto) 0.0 0.0 Abs Immat Gran (auto) 0.02 0.02 Absolute Neuts (auto) 3.8 4.2 Absolute Nucleated RBC 0.000 0.000 Nucleated RBC % (auto) 0.0 0.0 PT 13.8 H INR 1.2 H Anion Gap 11 L Estim Creat Clear Calc 58.6 Estimated GFR > 60 Random Glucose 101 Calcium 7.7 L D Magnesium 2.1 Total Bilirubin 0.6 AST 17 ALT 13 Alkaline Phosphatase 86 Troponin I High Sens 6.0 Total Protein 5.7 L Albumin 3.2 L Lipase 35 Blood Type A Positive Antibody Screen NEGATIVE 07/21/24 07/21/24 06:34 08:37 MCV 92.9 MCH 29.9 MCHC 32.2 RDW 13.8 Plt Count 118 L MPV 11.4 Immature Gran % (Auto) Neut % (Auto) Lymph % (Auto) [place] % (Auto) Eos % (Auto) Baso % (Auto) Lymph # (Auto) [place] # (Auto) Eos # (Auto) Baso # (Auto) Abs Immat Gran (auto) Absolute Neuts (auto) Absolute Nucleated RBC 0.000 Nucleated RBC % (auto) 0.0 PT INR Anion Gap 10 L Estim Creat Clear Calc 64.6 Estimated GFR > 60 Random Glucose 97 Calcium 7.9 L Magnesium 2.0 Total Bilirubin 0.8 AST 15 ALT 8 Alkaline Phosphatase 78 Troponin I High Sens Total Protein 5.5 L Albumin 3.1 L Lipase Blood Type Antibody Screen Assessment and Plan (1) Upper gastrointestinal bleed: Status: Acute Plan Patient is a 79-year-old male with a past medical history of atrial fibrillation, recent hospitalization for gastrointestinal bleed who presents to the ED with complaints of dizziness as well as melena. 1. AFib with RVR Difficult to control even on max dose IV diltiazem drip Cardiology consulted, recommendations appreciated. We will start with IV digoxin 0.25 q.6 hours x3 doses, metoprolol 12.5 b.i.d. q.6 hours Question of possible also orthostasis, we will check orthostatic vitals, 1 L of fluids over the next 24 hours Unable to take oral anticoagulation due to recent GI bleed, GI consulted for further X 2. Melena, question recurrent upper GI bleed, question acute blood loss anemia Previous admission had endoscopy which showed normal esophagus and large gastric ulcer Hematocrit, slight downward trend; no further melena reported by nurse staff Continue to trend GI consult PPI 3. Question orthostatis check vitals given 1L IVF Full Code DVT pptx - mechanical due to suspected UGI Quality Stroke Does the patient have a stroke diagnosis?: No VTE Prior VTE?: No VTE Risk Level:: Medical - moderate - high VTE Device Contraindication: N/A - Device Ordered VTE Drug Contraindication: Treatment Not Indicated
[2024-07-21] MEDS: Lactated Ringers 1,000 ML 50 ML IVCONT (12:23)
[2024-07-21] MEDS: Digoxin 0.5 MG/2 ML AMPUL 0.25 MG IVPUSH ×3 (12:23→23:10)
[2024-07-21] MEDS: Metoprolol Tartrate 12.5 MG HALFTAB PO ×2 (12:24→18:08)
--- NOTE | 2024-07-21 12:51 | CONS_ITS ---
DATE OF SERVICE: 07/21/2024 REFERRING PHYSICIAN: Najma Israel NP REASON FOR CONSULTATION: History of gastric ulcer. HISTORY OF PRESENT ILLNESS: Mr. Nick is a pleasant 79-year-old man known to me from prior evaluation. He was hospitalized in early June with black stools and hematemesis and underwent upper endoscopy, which documented a large 2.5 cm ulcer on the posterior gastric wall with adherent clot. He was treated with proton pump inhibitors and discharged. He was seen in followup in the office and had lab work done in mid June, which showed improvement in his blood count and he was advised to take vitamin C and iron as well. He was admitted to the hospital after presenting to the emergency room yesterday with complaints of weakness. He reported black stools but was evaluated in the emergency department and digital rectal examination at that time was described as largely unremarkable with internal hemorrhoids, but brown stool that was occult blood positive. His hematocrit on admission was 39.6 and dropped to 35.2 after hydration and has remained stable. There has been no reported active GI bleeding. His heart rate has been persistently high despite intravenous Cardizem and he is currently scheduled to get some additional medications for improving this. PAST MEDICAL HISTORY: 1. Atrial fibrillation with rapid ventricular response. 2. Gastric ulcer as above. 3. Nonsustained ventricular tachycardia. 4. Iron deficiency anemia. CURRENT MEDICATIONS: His current medication list is reviewed in the chart. ALLERGIES: THERE ARE NONE REPORTED. FAMILY HISTORY: This is reviewed with the patient and is noncontributory. SOCIAL HISTORY: There is no current tobacco or alcohol abuse. He was using alcohol regularly prior to his ulcer diagnosis. REVIEW OF SYSTEMS: SKIN: No pruritus. HEENT: Negative. CARDIOPULMONARY: He denies shortness of breath or chest pain currently. GASTROINTESTINAL: As above. GENITOURINARY: Negative. NEUROPSYCHIATRIC: Negative. PHYSICAL EXAMINATION: GENERAL: Reveals a pleasant male, lying comfortably in bed. VITAL SIGNS: Stable. SKIN: Anicteric. HEENT: Shows no scleral icterus. He is edentulous. NECK: Without lymphadenopathy. HEART: Irregularly irregular, tachycardia. ABDOMEN: Soft without focal masses or tenderness. Bowel sounds are present. No organomegaly is noted. EXTREMITIES: Without edema. LABORATORY DATA AND IMAGING STUDIES: Reviewed. IMPRESSION: Gastric ulcer. At this time, I do not see any signs of active GI bleeding. His rectal exam in the emergency department is reassuring. It is likely that at least some of his black stools that are being described are related to the iron use and we discussed this today. He also has had some hematochezia and is scheduled for evaluation of his hemorrhoids as an outpatient. I did advise him that he should keep his appointment for his followup endoscopy, which was scheduled in August to document healing of the gastric ulcer and if necessary, colonoscopy can be arranged at that time for further evaluation. We discussed this in detail. I would recommend continuing a proton pump inhibitor. If he does need to be anticoagulated, this can be started per Cardiology recommendations and he will have to be monitored carefully for any signs of GI bleeding. Thanks for asking me to see him. I will follow him in the hospital with you. MD GUERITA Paerl/CHEYENNE / [phone]
--- NOTE | 2024-07-21 14:04 | MHC.RECOVRN ---
AUDIT-C Brief Intervention Pt had positive screen for unhealthy alcohol use on admission. Attempted to meet with pt to discuss alcohol use and offer resources, pt declined.
--- NOTE | 2024-07-21 14:31 | PC.NURSE ---
Titrate diltiazem to 10 ml/ hr hr-- 90-110
[2024-07-21] MEDS: dilTIAZem HCL 125 MG in 0.9 % Sodium Chloride 100 ML 10 MG IVCONT (18:08)
[2024-07-22 04:00] VITALS: BP 126/80; PULSE 93; RESP 18; TEMP 36.4; O2SAT 96
[2024-07-22] MEDS: Omeprazole 40 MG CAPSULE.DR PO ×2 (06:08→16:28)
[2024-07-22] MEDS: Metoprolol Tartrate 12.5 MG HALFTAB PO (06:08)
[2024-07-22] MEDS: 0.9 % Sodium Chloride Flush 3 ML SYRINGE IVFLUSH ×4 (06:11→20:43)
[2024-07-22 07:04] VITALS: BP 140/71; PULSE 100; RESP 18; TEMP 36.7; O2SAT 94
[2024-07-22] MEDS: Folic Acid 1 MG TABLET PO (08:38)
[2024-07-22] MEDS: Thiamine HCL 100 MG TABLET PO (08:39)
[2024-07-22] MEDS: Metoprolol Tartrate 25 MG TABLET PO ×3 (08:39→20:39)
[2024-07-22] MEDS: Docusate Sodium 100 MG CAPSULE PO (08:39)
--- NOTE | 2024-07-22 09:54 | P.PNIM_ITS ---
Subjective Subjective Date of Service: 07/22/24 Interval History: seen and examined reported feeling dizzy, while in bed, when he first woke up otherwise ambulated to bathroom later without symptoms denies cp or palp reports stool is normal (no melena/bleeding) Review of Systems Negative except HPI/interval history. Physical Exam 2 Vital Signs: Vital Signs: Last Vital Signs Temp 98.0 F 07/22/24 07:04 Pulse 100 07/22/24 07:04 Resp 18 07/22/24 07:04 BP 140/71 H 07/22/24 07:04 Pulse Ox 94 07/22/24 07:04 O2 Del Method Room Air 07/22/24 07:04 BMI result Body Mass Index 27.2 Const: Other: General - no acute distress, appears comfortable Cardiovascular - IRR with rates up to 120s Lungs - normal respiratory effort, clear to auscultation bilaterally, no wheezing Abdomen - soft, nontender, no rebound or guarding Extremities - no edema bilaterally Neuro - awake and alert, no focal deficits Objective Data Active Medications Acetaminophen (Acetaminophen 325 Mg Tablet) 650 mg PO Q6H PRN PRN Reason: Pain, Mild 1-3,fever,headache Calcium Carbonate (Calcium Carbonate 750 Mg Tab.Chew) 750 mg PO Q4H PRN PRN Reason: Heartburn Digoxin (Digoxin 0.25 Mg Tablet) 0.25 mg PO DAILY [facility]; Protocol Docusate Sodium (Docusate Sodium 100 Mg Capsule) 100 mg PO DAILY [facility] Last Admin: 07/22/24 08:39 Dose: 100 mg Documented By: JUAN ANTONIO Folic Acid (Folic Acid 1 Mg Tablet) 1 mg PO DAILY [facility] Last Admin: 07/22/24 08:38 Dose: 1 mg Documented By: JUAN ANTONIO Magnesium Hydroxide (Milk Of Magnesia 30 Ml Oral.Susp) 30 ml PO DAILY PRN PRN Reason: Constipation Melatonin (Melatonin 3 Mg Tablet) 6 mg PO BEDTIME PRN PRN Reason: Insomnia Metoprolol Tartrate (Metoprolol Tartrate 25 Mg Tablet) 25 mg PO Q6H [facility]; Protocol Last Admin: 07/22/24 08:39 Dose: 25 mg Documented By: JUAN ANTONIO Omeprazole (Omeprazole 40 Mg Capsule.Dr) 40 mg PO BID@0630,1630 [facility] Last Admin: 07/22/24 06:08 Dose: 40 mg Documented By: JACY Ondansetron HCl (Ondansetron Hcl 4 Mg/2 Ml Vial) 4 mg IVPUSH Q8H PRN PRN Reason: Nausea and Vomiting Sodium Chloride (0.9 % Sodium Chloride Flush 3 Ml Syringe) 3 ml IVFLUSH QSHIFT [facility] Last Admin: 07/22/24 08:38 Dose: 3 ml Documented By: JUAN ANTONIO Thiamine HCl (Thiamine Hcl 100 Mg Tablet) 100 mg PO DAILY [facility] Last Admin: 07/22/24 08:39 Dose: 100 mg Documented By: JUAN ANTONIO Labs 07/22/24 10:06 07/21/24 08:37 Assessment and Plan (1) Upper gastrointestinal bleed: Status: Acute Plan Patient is a 79-year-old male with a past medical history of atrial fibrillation, recent hospitalization for gastrointestinal bleed who presents to the ED with complaints of dizziness as well as melena. 1. AFib with RVR s/p cardizem drip, s/p IV dig load start po dig 0.25mg daily increase metoprolol to 25mg q6h follow cardiology consult seen by GI -- julio for eliqukrysta with close monitoring of hct -- d/w with the patient re: OAC use, risks (primarily bleeding) vs benefits (decrease in stroke risk) disucssed with him and he is agreeable. will check h/h q6h for now 2. Dark stools initially felt to be melena but given h/h stability and normal stools now -- likely related to iron GI consult appreciated -- julio for eliquis with close monitoring will check h/h now and d/w pt continue PPI 3. Question orthostatis negative, s/p IVF Full Code DVT pptx - possibly starting eliquis Quality Stroke Does the patient have a stroke diagnosis?: No VTE Prior VTE?: No VTE Risk Level:: Medical - moderate - high VTE Device Contraindication: N/A - Device Ordered VTE Drug Contraindication: Treatment Not Indicated
[2024-07-22 10:20] LABS: Hematocrit 36.9 % (42.0-52.0); Hemoglobin 11.8 g/dl (14.0-18.0); Mean Corpuscular Hemoglobin 30.2 pg (27.0-33.0); Mean Corpuscular Volume 94.4 fL (80.0-98.0); Mean Platelet Volume 10.7 fL (9.4-12.4); Platelet Count 124 X10*3/uL (160-400); Red Blood Count 3.91 X10*6/uL (4.60-5.80); Red Cell Distribution Width 13.8 % (11.0-16.0); White Blood Count 4.8 X10*3/uL (4.8-10.8)
--- NOTE | 2024-07-22 10:55 | PM.PNCARD ---
Subjective Subjective Date of Service: 07/22/24 Principal diagnosis: Atrial fibrillation, recent upper GI bleed Interval history: Patient remains in atrial fibrillation about around rate control. Was given digoxin loading yesterday. Overnight the rate was better control but then started picking up this morning. Cardizem was stopped last night 11. His metoprolol was increased to 25 mg q.6 hours this morning. He is tolerating that well. Was seen by GI and recommended that he can be started on oral anticoagulation therapy. Review of Systems Constitutional: Reports no additional constitutional complaints Cardiovascular: Reports no additional cardiovascular complaints, Denies lightheadedness, Denies Loss of Consciousness and Denies palpitations Gastrointestinal: Reports no additional gastrointestinal complaints Reports system reviewed and no additional complaints, except as documented Psychiatric: Reports no additional psychiatric complaints Endocrine: Denies palpitations Physical Exam Vital Signs: Last Vital Signs Temp 98.0 F 07/22/24 07:04 Pulse 100 07/22/24 07:04 Resp 18 07/22/24 07:04 BP 140/71 H 07/22/24 07:04 Pulse Ox 94 07/22/24 07:04 O2 Del Method Room Air 07/22/24 07:04 BMI result Body Mass Index 27.2 Const General: cooperative, comfortable and no acute distress Orientation/consciousness: patient oriented x3 Neck Neck: Yes trachea midline, Yes supple and Yes no JVD Cardio Jugular venous distension: no JVD Rate: tachycardic Rhythm: abnormal rhythm irregularly irregular Heart sounds: S1 normal heart sound present and S2 normal heart sound present GI Auscultation: normal bowel sounds Skin General skin exam: no rashes or lesions noted Neuro General: patient oriented x3 and no focal motor deficits Objective Labs and Meds 07/22/24 10:06 07/21/24 08:37 Lab results: Laboratory Results - last 24 hr 07/22/24 10:06 WBC 4.8 RBC 3.91 L Hgb 11.8 L Hct 36.9 L MCV 94.4 MCH 30.2 MCHC 32.0 RDW 13.8 Plt Count 124 L MPV 10.7 Absolute Nucleated RBC 0.000 Nucleated RBC % (auto) 0.0 Progress Note: A&P Assessment and plan (1) Atrial fibrillation with RVR: Status: Acute Assessment and Plan: New onset atrial fibrillation rapid ventricular response with difficult to control rate. Agree with increasing metoprolol. Add digoxin 0.25 mg to his regimen p.o.. Do not follow digoxin level acutely. Will follow up in 1 weeks time. He can give intermittent IV Cardizem therapy. If remains difficult control rate may need EMILE guided cardioversion as long as he tolerates oral anticoagulation therapy. He is being started on Eliquis therapy for now. Will follow with you. Time Spent With Patient Time: Total time managing care of this patient today ____ minutes. Progress Note: Quality Stroke Does the patient have a stroke diagnosis?: No Procedures Date of Service Date of Service: 07/22/24
--- NOTE | 2024-07-22 10:59 | P.CONGS_ITS ---
History of Present Illness Consult details Consult date: 07/22/24 Narrative: Patient is an 79-year-old man with a plethora of comorbidities and intercurrent medical problems. He has history of a gastric ulcer as well as symptomatic internal hemorrhoids. He has undergone workup including endoscopy colonoscopy in the recent past. His hemorrhoids continued to be very symptomatic in prolapse and afternoon manually reduced. He also has occasional bleeding from them as well as discomfort. As noted above, patient has a collection of medical issues. Chart was reviewed and patient evaluated. [facility] Past Medical History Medical History NSVT (nonsustained ventricular tachycardia) Iron deficiency anemia Gastric ulcer Social History Social History Household Members: None Housing: Apartment Do you presently have visiting nurse or other home services: No Alcohol intake: former Patient Tobacco Use Status: Never used Tobacco service: No Meds Allergies Allergy/AdvReac Type Severity Reaction Status Date / Time No Known Allergies Allergy Verified 07/20/24 11:26 Active Medications: Current Medications Acetaminophen (Acetaminophen 325 Mg Tablet) 650 mg PO Q6H PRN PRN Reason: Pain, Mild 1-3,fever,headache Calcium Carbonate (Calcium Carbonate 750 Mg Tab.Chew) 750 mg PO Q4H PRN PRN Reason: Heartburn Digoxin (Digoxin 0.25 Mg Tablet) 0.25 mg PO DAILY [facility]; Protocol Docusate Sodium (Docusate Sodium 100 Mg Capsule) 100 mg PO DAILY [facility] Last Admin: 07/22/24 08:39 Dose: 100 mg Folic Acid (Folic Acid 1 Mg Tablet) 1 mg PO DAILY [facility] Last Admin: 07/22/24 08:38 Dose: 1 mg Magnesium Hydroxide (Milk Of Magnesia 30 Ml Oral.Susp) 30 ml PO DAILY PRN PRN Reason: Constipation Melatonin (Melatonin 3 Mg Tablet) 6 mg PO BEDTIME PRN PRN Reason: Insomnia Metoprolol Tartrate (Metoprolol Tartrate 25 Mg Tablet) 25 mg PO Q6H [facility]; Protocol Last Admin: 07/22/24 08:39 Dose: 25 mg Omeprazole (Omeprazole 40 Mg Capsule.Dr) 40 mg PO BID@0630,1630 [facility] Last Admin: 07/22/24 06:08 Dose: 40 mg Ondansetron HCl (Ondansetron Hcl 4 Mg/2 Ml Vial) 4 mg IVPUSH Q8H PRN PRN Reason: Nausea and Vomiting Sodium Chloride (0.9 % Sodium Chloride Flush 3 Ml Syringe) 3 ml IVFLUSH QSHIFT [facility] Last Admin: 07/22/24 08:38 Dose: 3 ml Thiamine HCl (Thiamine Hcl 100 Mg Tablet) 100 mg PO DAILY [facility] Last Admin: 07/22/24 08:39 Dose: 100 mg Home Medications ?Medication ?Instructions ?Recorded ?Confirmed ?Last Taken ?Type acetaminophen 325 mg tablet 650 mg PO Q6H PRN knee pain 07/20/24 07/20/24 Unknown History docusate sodium 100 mg capsule 100 mg PO DAILY 07/20/24 07/20/24 Unknown History ferrous sulfate 325 mg (65 mg 325 mg DAILY 07/20/24 07/20/24 Unknown History iron) tablet omeprazole 40 mg capsule,delayed 40 mg PO BID@0630,1630 07/20/24 07/20/24 Unknown History release Physical Exam 2 Vital Signs: Vital Signs: Last Vital Signs Temp 98.0 F 07/22/24 07:04 Pulse 100 07/22/24 07:04 Resp 18 07/22/24 07:04 BP 140/71 H 07/22/24 07:04 Pulse Ox 94 07/22/24 07:04 O2 Del Method Room Air 07/22/24 07:04 BMI result Body Mass Index 27.2 GI: Other: Abdomen is soft, benign Rectal exam demonstrated with Valsalva internal hemorrhoids. Rectal exam was deferred secondary to patient's discomfort. Results Labs 07/22/24 10:06 07/21/24 08:37 Labs: Abnormal lab results 07/22/24 Range/Units 10:06 RBC 3.91 L (4.60-5.80) X10*6/uL Hgb 11.8 L (14.0-18.0) g/dl Hct 36.9 L (42.0-52.0) % Plt Count 124 L (160-400) X10*3/uL Short CBC 07/22/24 Range/Units 10:06 WBC 4.8 (4.8-10.8) X10*3/uL Hgb 11.8 L (14.0-18.0) g/dl Hct 36.9 L (42.0-52.0) % Plt Count 124 L (160-400) X10*3/uL All other labs normal. Assessment and Plan (1) Hemorrhoids reducible with difficulty: Status: Acute Plan Once the patient's medical issues are stabilized, patient can follow-up with me in the office. Incidentally, he was to see me next week regarding use hemorrhoids. At present, conservative therapy will be undertaken. Procedures Date of Service Date of Service: 07/22/24
[2024-07-22] MEDS: Digoxin 0.25 MG TABLET PO (11:03)
[2024-07-22 11:23] VITALS: BP 135/71; PULSE 90; RESP 18; TEMP 36.7; O2SAT 96
--- NOTE | 2024-07-22 11:38 | MHC.CM.PN ---
Per rounds, pt is not yet ready for DC, he is being treated for Afib with RVR and dark stools. CM to follow for DC needs.
--- NOTE | 2024-07-22 12:51 | P.CDIM_ITS ---
PROVIDER RESPONSE TEXT: To clarify, the appropriate diagnosis supported by the clinical indicators: Chronic stable condition QUERY TEXT: PHYSICIAN'S DOCUMENTATION REQUEST Date of Query: 07/22/2024 12:14 PM EST Patient Name: Geovanni Nick Admit Date: 07/20/2024 Dear Yonis Ravi MD, A review of the medical record indicates additional documentation may be needed. Please review below and update the documentation accordingly. Clinical Indicators: Prior Endoscopy June of 2024, black stools and hematemesis - large 2.5 cm ulcer on the posterior gastric wall with adherent clot. GI consultation report dated 07/21/24 - Impression: Gastric ulcer. No active GI bleeding. Advised him he should get a follow up endoscopy which was scheduled for August to document healing of the gastric ulcer. Proton pump inhibitor. Clarify which of the following accurately represents the acuity of the Gastric ulcer: Possible options might include: Acute Acute on chronic Chronic stable condition Other (explain) Clinically unable to determine (explain) Thank you, Meghna Quinones, CCS, CDIS Use of terms such as suspected, likely, concern for, or probable (associated with a specific diagnosi s that is being evaluated, monitored, or treated as if it exists) are acceptable and can be coded in the inpatient se tting, when documented at the time of discharge. Please use your independent medical judgment in providing your response. THIS QUERY IS PART OF THE PERMANENT MEDICAL RECORD
[2024-07-22] MEDS: Apixaban 5 MG TABLET PO ×2 (14:45→20:42)
[2024-07-22 15:12] VITALS: BP 126/78; PULSE 65; RESP 18; TEMP 36.3; O2SAT 95
[2024-07-22 16:44] LABS: Hematocrit 36.9 % (42.0-52.0); Hemoglobin 11.9 g/dl (14.0-18.0)
[2024-07-22 19:41] VITALS: BP 130/71; PULSE 83; RESP 20; TEMP 36.1; O2SAT 96
[2024-07-22 21:55] LABS: Hematocrit 37.3 % (42.0-52.0); Hemoglobin 12.2 g/dl (14.0-18.0)
[2024-07-23] VITALS (11 sets, daily range): BP systolic 96–135; BP diastolic 73–95; PULSE 77–106; RESP 14–20; TEMP 36–37.2; O2SAT 93–99
[2024-07-23] MEDS: Metoprolol Tartrate 25 MG TABLET PO ×2 (01:28→08:06)
[2024-07-23] MEDS: Omeprazole 40 MG CAPSULE.DR PO ×2 (05:54→16:10)
[2024-07-23] MEDS: Digoxin 0.25 MG TABLET PO (08:05)
[2024-07-23] MEDS: Docusate Sodium 100 MG CAPSULE PO (08:06)
[2024-07-23] MEDS: Thiamine HCL 100 MG TABLET PO (08:06)
[2024-07-23] MEDS: Apixaban 5 MG TABLET PO ×2 (08:06→22:14)
[2024-07-23] MEDS: 0.9 % Sodium Chloride Flush 3 ML SYRINGE IVFLUSH ×3 (08:06→22:15)
[2024-07-23] MEDS: Folic Acid 1 MG TABLET PO (08:06)
--- NOTE | 2024-07-23 10:08 | P.PNIM_ITS ---
Subjective Subjective Date of Service: 07/23/24 Interval History: seen and examined feeling well denies cp or palp reports stool is normal (no melena/bleeding) Review of Systems Negative except HPI/interval history. Physical Exam 2 Vital Signs: Vital Signs: Last Vital Signs Temp 96.8 F 07/23/24 08:00 Pulse 95 07/23/24 08:00 Resp 16 07/23/24 08:00 BP 135/89 07/23/24 08:00 Pulse Ox 93 07/23/24 04:00 O2 Del Method Room Air 07/23/24 04:00 BMI result Body Mass Index 27.2 Appearing in no acute distress lung sounds are clear to auscultation heart regular rate rhythm, clear S1, S2 positive bowel sounds, abdomen is soft, nontender neuro patient is alert x3, no focal deficits Objective Data Active Medications Acetaminophen (Acetaminophen 325 Mg Tablet) 650 mg PO Q6H PRN PRN Reason: Pain, Mild 1-3,fever,headache Apixaban (Apixaban 5 Mg Tablet) 5 mg PO BID [facility] Last Admin: 07/23/24 08:06 Dose: 5 mg Documented By: WILLY Calcium Carbonate (Calcium Carbonate 750 Mg Tab.Chew) 750 mg PO Q4H PRN PRN Reason: Heartburn Digoxin (Digoxin 0.25 Mg Tablet) 0.25 mg PO DAILY [facility]; Protocol Last Admin: 07/23/24 08:05 Dose: 0.25 mg Documented By: WILLY Docusate Sodium (Docusate Sodium 100 Mg Capsule) 100 mg PO DAILY [facility] Last Admin: 07/23/24 08:06 Dose: 100 mg Documented By: WILLY Folic Acid (Folic Acid 1 Mg Tablet) 1 mg PO DAILY [facility] Last Admin: 07/23/24 08:06 Dose: 1 mg Documented By: WILLY Magnesium Hydroxide (Milk Of Magnesia 30 Ml Oral.Susp) 30 ml PO DAILY PRN PRN Reason: Constipation Melatonin (Melatonin 3 Mg Tablet) 6 mg PO BEDTIME PRN PRN Reason: Insomnia Metoprolol Tartrate (Metoprolol Tartrate 25 Mg Tablet) 25 mg PO Q6H [facility]; Protocol Last Admin: 07/23/24 08:06 Dose: 25 mg Documented By: WILLY Omeprazole (Omeprazole 40 Mg Capsule.Dr) 40 mg PO BID@0630,1630 [facility] Last Admin: 07/23/24 05:54 Dose: 40 mg Documented By: MARILYN Ondansetron HCl (Ondansetron Hcl 4 Mg/2 Ml Vial) 4 mg IVPUSH Q8H PRN PRN Reason: Nausea and Vomiting Sodium Chloride (0.9 % Sodium Chloride Flush 3 Ml Syringe) 3 ml IVFLUSH QSHIFT [facility] Last Admin: 07/23/24 08:06 Dose: 3 ml Documented By: WILLY Thiamine HCl (Thiamine Hcl 100 Mg Tablet) 100 mg PO DAILY [facility] Last Admin: 07/23/24 08:06 Dose: 100 mg Documented By: WILLY Labs 07/22/24 21:44 07/21/24 08:37 Labs: Laboratory Results - last 24 hr 07/22/24 10:06 MCV 94.4 MCH 30.2 MCHC 32.0 RDW 13.8 Plt Count 124 L MPV 10.7 Absolute Nucleated RBC 0.000 Nucleated RBC % (auto) 0.0 Assessment and Plan (1) Upper gastrointestinal bleed: Status: Acute Plan 79-year-old male with a past medical history of atrial fibrillation, recent hospitalization for gastrointestinal bleed who presents to the ED with complaints of dizziness as well as melena. AFib with RVR s/p cardizem drip, s/p IV dig load start po dig 0.25mg daily increase metoprolol to 25mg q6h follow cardiology consult seen by GI>julio farris with close monitoring of hct -- d/w with the patient re: OAC use, risks (primarily bleeding) vs benefits (decrease in stroke risk) discussed with him and he is agreeable. will check h/h q6h for now Dark stools initially felt to be melena but given h/h stability and normal stools now likely related to iron GI consult appreciated >julio for eliquis with close monitoring will check h/h now and d/w pt continue PPI iron def anemia ferrous sulfate stopped Full Code DVT pptx - possibly starting eliquis Quality Stroke Does the patient have a stroke diagnosis?: No VTE Prior VTE?: No VTE Risk Level:: Medical - moderate - high VTE Device Contraindication: N/A - Device Ordered VTE Drug Contraindication: Treatment Not Indicated
[2024-07-23] MEDS: Metoprolol Tartrate 50 MG TABLET PO ×2 (13:19→22:14)
--- NOTE | 2024-07-23 13:42 | PM.PNCARD ---
Subjective Subjective Date of Service: 07/23/24 Principal diagnosis: Atrial fibrillation, recent upper GI bleed Interval history: Patient's atrial fibrillation rate remains better controlled. Blood pressure is stable although he said after long walking and does complain of some dizziness and feels funny in his head. No syncopal episodes. No chest pain or shortness of breath. No recurrent GI bleeding episodes. Review of Systems Constitutional: Reports weakness Cardiovascular: Reports no additional cardiovascular complaints Gastrointestinal: Reports no additional gastrointestinal complaints Musculoskeletal: Reports no additional musculoskeletal complaints Reports system reviewed and no additional complaints, except as documented and Reports weakness Physical Exam Vital Signs: Last Vital Signs Temp 97.1 F 07/23/24 12:00 Pulse 85 07/23/24 12:00 Resp 14 07/23/24 12:00 BP 128/73 07/23/24 12:00 Pulse Ox 99 07/23/24 12:00 O2 Del Method Room Air 07/23/24 12:00 BMI result Body Mass Index 27.2 Const General: cooperative, comfortable and no acute distress Orientation/consciousness: patient oriented x3 Neck Neck: Yes trachea midline, Yes supple and Yes no JVD Cardio Jugular venous distension: no JVD Rate: tachycardic Rhythm: abnormal rhythm irregularly irregular Heart sounds: S1 normal heart sound present and S2 normal heart sound present GI Auscultation: normal bowel sounds Skin General skin exam: no rashes or lesions noted Neuro General: patient oriented x3 and no focal motor deficits Objective Labs and Meds 07/22/24 21:44 07/21/24 08:37 Lab results: Laboratory Results - last 24 hr 07/22/24 07/22/24 16:18 21:44 Hgb 11.9 L 12.2 L Hct 36.9 L 37.3 L Progress Note: A&P Assessment and plan (1) Atrial fibrillation with RVR: Status: Acute Assessment and Plan: Atrial fibrillation with rapid ventricular response with borderline rate control. Continue maximize metoprolol to 50 mg q.8 hours. Continue digoxin therapy. Was started on Eliquis therapy after GI okay. Continue to monitor CBC. Continue monitor full disclosure cardiac telemetry. If rate remains better control possible discharge tomorrow. Consider PT consultation. (2) Weakness: Status: Acute Assessment and Plan: Still complains of orthostatic weakness. Check orthostatic vitals. Advised to continue to ambulance. Could be possibly related to multiple recent hospitalizations. Will follow with you Time Spent With Patient Time: Total time managing care of this patient today ____ minutes. Progress Note: Quality Stroke Does the patient have a stroke diagnosis?: No Procedures Date of Service Date of Service: 07/23/24
[2024-07-23 18:56] LABS: Appearance Urine Clear; Color Urine Yellow; Glucose Urine UA Negative (Negative); Leukocyte Esterase Urine Negative (Negative); Nitrite Urine Negative (Negative); Specific Gravity - Urine 1.025 (1.005-1.025); UMIC TRIGGER UACC YES; Urine Blood Trace (Negative); Urine Ketones Negative (Negative); Urine Protein Negative (Neg-Trace)
[2024-07-23 19:03] LABS: Bacteria Urine None Seen (None Seen); Hyaline Casts Urine 0-2 /LPF (0-2); Squamous Epithelial Cell Urine 0-2 /HPF (0-2); WBC Urine 0-5 /HPF (0-5)
[2024-07-24] VITALS (8 sets, daily range): BP systolic 113–139; BP diastolic 61–82; PULSE 86–104; RESP 16–20; TEMP 36–36.8; O2SAT 93–98
[2024-07-24] MEDS: Metoprolol Tartrate 50 MG TABLET PO ×2 (04:18→09:46)
[2024-07-24] MEDS: Omeprazole 40 MG CAPSULE.DR PO ×2 (04:19→16:37)
[2024-07-24] MEDS: Docusate Sodium 100 MG CAPSULE PO (08:31)
[2024-07-24] MEDS: Folic Acid 1 MG TABLET PO (08:31)
[2024-07-24] MEDS: Digoxin 0.25 MG TABLET PO (08:31)
[2024-07-24] MEDS: Thiamine HCL 100 MG TABLET PO (08:31)
[2024-07-24] MEDS: Apixaban 5 MG TABLET PO ×2 (08:32→20:21)
[2024-07-24] MEDS: 0.9 % Sodium Chloride Flush 3 ML SYRINGE IVFLUSH ×3 (08:32→20:21)
--- NOTE | 2024-07-24 09:22 | P.PNIM_ITS ---
Subjective Subjective Date of Service: 07/24/24 Review of Systems Follow up afib rvr, lightheadedness reports feeling lightheaded off and on with some mild sob denied blurred vision, loss of vision. just feeling not right no bleeding Physical Exam 2 Vital Signs: Vital Signs: Last Vital Signs Temp 97.1 F 07/24/24 08:00 Pulse 93 07/24/24 08:00 Resp 20 07/24/24 08:00 BP 139/76 07/24/24 08:00 Pulse Ox 98 07/24/24 08:00 O2 Del Method Room Air 07/24/24 08:00 BMI result Body Mass Index 27.2 Appearing in no acute distress lung sounds are clear to auscultation heart regular rate rhythm, clear S1, S2 positive bowel sounds, abdomen is soft, nontender neuro patient is alert x3, no focal deficits Objective Data Active Medications Acetaminophen (Acetaminophen 325 Mg Tablet) 650 mg PO Q6H PRN PRN Reason: Pain, Mild 1-3,fever,headache Apixaban (Apixaban 5 Mg Tablet) 5 mg PO BID [facility] Last Admin: 07/24/24 08:32 Dose: 5 mg Documented By: WILLY Calcium Carbonate (Calcium Carbonate 750 Mg Tab.Chew) 750 mg PO Q4H PRN PRN Reason: Heartburn Digoxin (Digoxin 0.25 Mg Tablet) 0.25 mg PO DAILY [facility]; Protocol Last Admin: 07/24/24 08:31 Dose: 0.25 mg Documented By: WILLY Docusate Sodium (Docusate Sodium 100 Mg Capsule) 100 mg PO DAILY [facility] Last Admin: 07/24/24 08:31 Dose: 100 mg Documented By: WILLY Folic Acid (Folic Acid 1 Mg Tablet) 1 mg PO DAILY [facility] Last Admin: 07/24/24 08:31 Dose: 1 mg Documented By: WILLY Magnesium Hydroxide (Milk Of Magnesia 30 Ml Oral.Susp) 30 ml PO DAILY PRN PRN Reason: Constipation Melatonin (Melatonin 3 Mg Tablet) 6 mg PO BEDTIME PRN PRN Reason: Insomnia Metoprolol Tartrate (Metoprolol Tartrate 50 Mg Tablet) 50 mg PO ONCE ONE; Protocol Stop: 07/24/24 09:21 Metoprolol Tartrate (Metoprolol Tartrate 100 Mg Tablet) 100 mg PO Q12H [facility]; Protocol Omeprazole (Omeprazole 40 Mg Capsule.) 40 mg PO BID@0630,1630 [facility] Last Admin: 07/24/24 04:19 Dose: 40 mg Documented By: BARB Ondansetron HCl (Ondansetron Hcl 4 Mg/2 Ml Vial) 4 mg IVPUSH Q8H PRN PRN Reason: Nausea and Vomiting Sodium Chloride (0.9 % Sodium Chloride Flush 3 Ml Syringe) 3 ml IVFLUSH QSHIFT [facility] Last Admin: 07/24/24 08:32 Dose: 3 ml Documented By: WILLY Thiamine HCl (Thiamine Hcl 100 Mg Tablet) 100 mg PO DAILY [facility] Last Admin: 07/24/24 08:31 Dose: 100 mg Documented By: WILLY Labs 07/22/24 21:44 07/21/24 08:37 Labs: Laboratory Results - last 24 hr 07/23/24 18:50 Urine Color Yellow Urine Appearance Clear Urine pH 6.0 Ur Specific [place] 1.025 Urine Protein Negative Urine Glucose (UA) Negative Urine Ketones Negative Urine Blood Trace Urine Nitrite Negative Ur Leukocyte Esterase Negative Urine RBC 3-5 H Urine WBC 0-5 Ur Squamous Epith Cells 0-2 Urine Bacteria None Seen Hyaline Casts 0-2 Assessment and Plan (1) Upper gastrointestinal bleed: Status: Acute Plan 79-year-old male with a past medical history of atrial fibrillation, recent hospitalization for gastrointestinal bleed who presents to the ED with complaints of dizziness as well as melena. AFib with RVR s/p cardizem drip, s/p IV dig load continue po dig 0.25mg daily increase metoprolol to 100 mg q12h due to ongoing tachycardia with afib, also add cardizem 30 q6h cardiology consult> discussed low tolerance to afib with dizziness, plan for cardioversion in 3-4 weeks after being on OAC seen by GI>okay for eliquis with close monitoring of hct>d/w with the patient risk to benefit of OAC use Lightheaded ? low tolerance to afib head ct> neg for acute abnormality, age related volume loss check orthos SOB no hypoxia portable CXR>no consolidation or effusion check BNP Dark stools initially felt to be melena but given h/h stability and normal stools now likely related to iron GI consult appreciated >okay for eliquis with close monitoring stable HH continue PPI Iron def anemia ferrous sulfate stopped Full Code DVT pptx - eliquis DISPO Home with PT when medically clear Quality Stroke Does the patient have a stroke diagnosis?: No VTE Prior VTE?: No VTE Risk Level:: Medical - moderate - high VTE Device Contraindication: N/A - Device Ordered VTE Drug Contraindication: Treatment Not Indicated
--- NOTE | 2024-07-24 10:46 | PM.PNCARD ---
Subjective Subjective Date of Service: 07/24/24 Principal diagnosis: Atrial fibrillation, recent upper GI bleed Interval history: Patient with no orthostatic hypotension. Remains in atrial fibrillation and while in the bathroom going for bowel movement did have faster heart rate up to 130s. He still having symptomatic dizziness. No overt GI bleeding. Review of Systems Constitutional: Reports weakness Eyes: Reports no additional eye complaints Cardiovascular: Denies chest pain, Reports rapid heart rate, Reports lightheadedness, Denies Loss of Consciousness and Denies dyspnea Respiratory: Denies dyspnea Gastrointestinal: Denies melena Reports system reviewed and no additional complaints, except as documented and Reports weakness Physical Exam Vital Signs: Last Vital Signs Temp 97.1 F 07/24/24 08:00 Pulse 98 07/24/24 09:46 Resp 20 07/24/24 08:00 BP 139/76 07/24/24 08:00 Pulse Ox 98 07/24/24 08:00 O2 Del Method Room Air 07/24/24 08:00 BMI result Body Mass Index 27.2 Const General: cooperative, comfortable and no acute distress Orientation/consciousness: patient oriented x3 Neck Neck: Yes trachea midline, Yes supple and Yes no JVD Cardio Jugular venous distension: no JVD Rate: tachycardic Rhythm: abnormal rhythm irregularly irregular Heart sounds: S1 normal heart sound present and S2 normal heart sound present GI Auscultation: normal bowel sounds Skin General skin exam: no rashes or lesions noted Neuro General: patient oriented x3 and no focal motor deficits Objective Labs and Meds 07/22/24 21:44 07/21/24 08:37 Lab results: Laboratory Results - last 24 hr 07/23/24 18:50 Urine Color Yellow Urine Appearance Clear Urine pH 6.0 Ur Specific [place] 1.025 Urine Protein Negative Urine Glucose (UA) Negative Urine Ketones Negative Urine Blood Trace Urine Nitrite Negative Ur Leukocyte Esterase Negative Urine RBC 3-5 H Urine WBC 0-5 Ur Squamous Epith Cells 0-2 Urine Bacteria None Seen Hyaline Casts 0-2 Progress Note: A&P Assessment and plan (1) Atrial fibrillation with RVR: Status: Acute Assessment and Plan: Atrial fibrillation rapid ventricular response, difficult control. Could be causing his symptoms of lightheadedness when he is walking around. He was just recently started on Eliquis therapy and has been on it for couple of days and has luckily has not had any bleeding issues. However I am not sure if he will tolerate Eliquis science consultant given his GI bleed episode and would like to at least tried for 3-4 weeks. For committing him to a synchronized cardioversion to reduce risk of post cardioversion stroke if he can not tolerate Eliquis therapy senior care. Follow-up with GI. Follow hematocrit. For now increase metoprolol to 100 mg b.i.d.. Continue digoxin 0.25 mg daily. Also add Cardizem 30 mg q.6 to his regimen. Will follow with you Time Spent With Patient Time: Total time managing care of this patient today ____ minutes. Progress Note: Quality Stroke Does the patient have a stroke diagnosis?: No Procedures Date of Service Date of Service: 07/24/24
[2024-07-24] MEDS: dilTIAZem HCL 30 MG TABLET PO ×2 (16:37→20:21)
[2024-07-24] MEDS: Metoprolol Tartrate 100 MG TABLET PO (20:21)
[2024-07-25] VITALS (13 sets, daily range): BP systolic 104–133; BP diastolic 63–90; PULSE 76–101; RESP 18–20; TEMP 36.1–36.7; O2SAT 93–98
[2024-07-25] MEDS: Omeprazole 40 MG CAPSULE.DR PO ×2 (06:28→16:30)
[2024-07-25 07:44] LABS: Hematocrit 41.6 % (42.0-52.0); Hemoglobin 13.9 g/dl (14.0-18.0); Mean Corpuscular HGB Conc 33.4 g/dl (31.0-36.0); Mean Corpuscular Hemoglobin 30.1 pg (27.0-33.0); Mean Platelet Volume 10.3 fL (9.4-12.4); Platelet Count 132 X10*3/uL (160-400); Red Blood Count 4.62 X10*6/uL (4.60-5.80); Red Cell Distribution Width 13.4 % (11.0-16.0)
[2024-07-25 07:58] LABS: Anion Gap 10 (12-20); Blood Urea Nitrogen 10 mg/dL (9-16); Carbon Dioxide 26 mmol/L (22-29); Chloride 107 mmol/L (96-108); Creatinine Clr Calc Pharmacy 74.7; Estimated Glomerular Filt Rate > 60; Glucose Random 85 mg/dL (60-115); Sodium 139 mmol/L (135-145)
[2024-07-25 08:09] LABS: B Type Natriuretic Peptide 781 pg/mL (<100)
[2024-07-25] MEDS: dilTIAZem HCL 30 MG TABLET PO ×4 (08:20→21:40)
[2024-07-25] MEDS: Apixaban 5 MG TABLET PO ×2 (08:21→21:37)
[2024-07-25] MEDS: Thiamine HCL 100 MG TABLET PO (08:21)
[2024-07-25] MEDS: Docusate Sodium 100 MG CAPSULE PO (08:21)
[2024-07-25] MEDS: Metoprolol Tartrate 100 MG TABLET PO ×2 (08:21→21:37)
[2024-07-25] MEDS: Digoxin 0.25 MG TABLET PO (08:21)
[2024-07-25] MEDS: 0.9 % Sodium Chloride Flush 3 ML SYRINGE IVFLUSH ×3 (08:23→21:41)
[2024-07-25] MEDS: Folic Acid 1 MG TABLET PO (08:24)
--- NOTE | 2024-07-25 10:10 | P.PNCA_ITS ---
Subjective Subjective Date of Service: 07/25/24 Principal diagnosis: Atrial fibrillation, recent upper GI bleed Interval history: He states that he feels okay. No new complaints. No palpitations. Review of Systems Review of Systems Yes all other systems are reviewed and are negative Constitutional: Reports as per HPI and Reports no additional constitutional complaints Eyes: Reports as per HPI and Denies no additional eye complaints Denies system reviewed and no additional complaints, except as documented and Reports as per HPI Cardiovascular: Reports as per HPI, Reports no additional cardiovascular complaints, Denies acrocyanosis, Denies cool extremities, Denies chest pain, Denies leg edema, Denies lightheadedness, Denies palpitations and Denies dyspnea Respiratory: Reports as per HPI, Denies no additional respiratory complaints and Denies dyspnea Gastrointestinal: Reports as per HPI and Denies no additional gastrointestinal complaints Genitourinary: Reports no additional male genitourinary complaints and Reports as per HPI Musculoskeletal: Reports no additional musculoskeletal complaints and Reports as per HPI Skin/Breast: Reports system reviewed and no additional complaints, except as docu Reports system reviewed and no additional complaints, except as documented and Reports as per HPI Psychiatric: Reports no additional psychiatric complaints and Reports as per HPI Endocrine: Reports no additional endocrine complaints, Reports as per HPI and Denies palpitations Hematologic/Lymphatic: Reports no additional hematologic/lymphatic complaints and Reports as per HPI Allergic/Immunologic: Reports no additional allergic/immunologic complaints and Reports as per HPI Physical Exam Vital Signs: Last Vital Signs Temp 97.2 F 07/25/24 07:17 Pulse 88 07/25/24 08:31 Resp 20 07/25/24 07:17 BP 121/71 07/25/24 08:31 Pulse Ox 98 07/25/24 07:17 O2 Del Method Room Air 07/25/24 07:17 BMI result Body Mass Index 27.2 Const General: comfortable and no acute distress Orientation/consciousness: patient oriented x3 HEENT Other: Unremarkable Head: Yes normal to inspection Neck Neck: Yes normal visual inspection Chest Chest palpation & inspection: normal inspection of the chest Resp Auscultation: clear to auscultation bilaterally Cardio Palpation: normal PMI Heart sounds: S1 normal heart sound present, S2 normal heart sound present, no gallops, no murmurs and no rubs GI Palpation (GI): Soft to palpation Back/Spine/Pelvis Other: unremarkable Skin General skin exam: no rashes or lesions noted Neuro General: patient oriented x3 Extrem General: Yes normal to inspection Psych Mental Status: mental status grossly normal Objective Labs and Meds 07/25/24 06:58 07/25/24 06:58 Lab results: Laboratory Results - last 24 hr 07/25/24 06:58 WBC 5.0 RBC 4.62 Hgb 13.9 L Hct 41.6 L MCV 90.0 MCH 30.1 MCHC 33.4 RDW 13.4 Plt Count 132 L MPV 10.3 Absolute Nucleated RBC 0.000 Nucleated RBC % (auto) 0.0 Sodium 139 Potassium 4.0 Chloride 107 Carbon Dioxide 26 Anion Gap 10 L BUN 10 Creatinine 0.84 Estim Creat Clear Calc 74.7 Estimated GFR > 60 Random Glucose 85 Calcium 8.0 L B-Natriuretic Peptide 781 H Progress Note: A&P Assessment and plan (1) Atrial fibrillation with RVR: Status: Acute (2) Orthostasis: Status: Acute Plan Currently on rate control with metoprolol, diltiazem, digoxin. On telemetry, rhythm is atrial fibrillation with a ventricular rate about 100- 105/Min. On anticoagulation. Can ambulate and see how he feels. Upon discharge, follow up in clinic. Digoxin level will need to be checked as an outpatient. Time Spent With Patient Time: Total time managing care of this patient today ____ minutes. Progress Note: Quality Stroke Does the patient have a stroke diagnosis?: No Procedures Date of Service Date of Service: 07/25/24
--- NOTE | 2024-07-25 11:17 | MHC.CM.PN ---
Per rounds, pt is not yet ready for DC, task submitted for [facility] services as pt. lives alone and could benefit from home care services. DC plan is home, pt has first PCP appt. 08/04/24, he can request [facility] services at that appt. CM to follow for DC needs.
--- NOTE | 2024-07-25 12:10 | P.PNIM_ITS ---
Subjective Subjective Date of Service: 07/25/24 Review of Systems Follow up afib rvr, lightheadedness denied blurred vision, loss of vision. lightheadedness gone no bleeding Reports feeling better and wanting to go home Physical Exam 2 Vital Signs: Vital Signs: Last Vital Signs Temp 97.4 F 07/25/24 11:06 Pulse 78 07/25/24 11:06 Resp 18 07/25/24 11:06 BP 104/64 07/25/24 11:06 Pulse Ox 98 07/25/24 11:06 O2 Del Method Room Air 07/25/24 11:06 BMI result Body Mass Index 27.2 Appearing in no acute distress lung sounds are clear to auscultation heart regular rate rhythm, clear S1, S2 positive bowel sounds, abdomen is soft, nontender neuro patient is alert x3, no focal deficits Objective Data Active Medications Acetaminophen (Acetaminophen 325 Mg Tablet) 650 mg PO Q6H PRN PRN Reason: Pain, Mild 1-3,fever,headache Apixaban (Apixaban 5 Mg Tablet) 5 mg PO BID [facility] Last Admin: 07/25/24 08:21 Dose: 5 mg Documented By: WILLY Calcium Carbonate (Calcium Carbonate 750 Mg Tab.Chew) 750 mg PO Q4H PRN PRN Reason: Heartburn Digoxin (Digoxin 0.25 Mg Tablet) 0.25 mg PO DAILY [facility]; Protocol Last Admin: 07/25/24 08:21 Dose: 0.25 mg Documented By: WILLY Diltiazem HCl (Diltiazem Hcl 30 Mg Tablet) 30 mg PO QID [facility]; Protocol Last Admin: 07/25/24 08:20 Dose: 30 mg Documented By: WILLY Docusate Sodium (Docusate Sodium 100 Mg Capsule) 100 mg PO DAILY [facility] Last Admin: 07/25/24 08:21 Dose: 100 mg Documented By: WILLY Folic Acid (Folic Acid 1 Mg Tablet) 1 mg PO DAILY [facility] Last Admin: 07/25/24 08:24 Dose: 1 mg Documented By: WILLY Magnesium Hydroxide (Milk Of Magnesia 30 Ml Oral.Susp) 30 ml PO DAILY PRN PRN Reason: Constipation Melatonin (Melatonin 3 Mg Tablet) 6 mg PO BEDTIME PRN PRN Reason: Insomnia Metoprolol Tartrate (Metoprolol Tartrate 100 Mg Tablet) 100 mg PO Q12H [facility]; Protocol Last Admin: 07/25/24 08:21 Dose: 100 mg Documented By: WILLY Omeprazole (Omeprazole 40 Mg Capsule.Dr) 40 mg PO BID@0630,1630 [facility] Last Admin: 07/25/24 06:28 Dose: 40 mg Documented By: SLY Ondansetron HCl (Ondansetron Hcl 4 Mg/2 Ml Vial) 4 mg IVPUSH Q8H PRN PRN Reason: Nausea and Vomiting Sodium Chloride (0.9 % Sodium Chloride Flush 3 Ml Syringe) 3 ml IVFLUSH QSHIFT [facility] Last Admin: 07/25/24 08:23 Dose: 3 ml Documented By: WILLY Thiamine HCl (Thiamine Hcl 100 Mg Tablet) 100 mg PO DAILY [facility] Last Admin: 07/25/24 08:21 Dose: 100 mg Documented By: WILLY Labs 07/25/24 06:58 07/25/24 06:58 Labs: Laboratory Results - last 24 hr 07/25/24 06:58 MCV 90.0 MCH 30.1 MCHC 33.4 RDW 13.4 Plt Count 132 L MPV 10.3 Absolute Nucleated RBC 0.000 Nucleated RBC % (auto) 0.0 Anion Gap 10 L Estim Creat Clear Calc 74.7 Estimated GFR > 60 Random Glucose 85 Calcium 8.0 L B-Natriuretic Peptide 781 H Assessment and Plan (1) Upper gastrointestinal bleed: Status: Acute Plan 79-year-old male with a past medical history of atrial fibrillation, recent hospitalization for gastrointestinal bleed who presents to the ED with complaints of dizziness as well as melena. Bradycardia some episodes of HR In 40's but not sustaining discussed with cardiology>keep current medications cardizem, metoprolol and digoxin monitor tele AFib with RVR s/p cardizem drip, s/p IV dig load continue po dig 0.25mg daily increase metoprolol to 100 mg q12h due to ongoing tachycardia with afib, also add cardizem 30 q6h cardiology consult> discussed low tolerance to afib with dizziness, plan for cardioversion in 3-4 weeks after being on OAC seen by GI>okay for eliquis with close monitoring of hct>d/w with the patient risk to benefit of OAC use Lightheaded. Resolved with better HR control ? low tolerance to afib head ct> neg for acute abnormality, age related volume loss orthos negative SOB. Resolved no hypoxia portable CXR>no consolidation or effusion Dark stools initially felt to be melena but given h/h stability and normal stools now likely related to iron GI consult appreciated >okay for eliquis with close monitoring stable HH at 13.9/41.6 continue PPI Iron def anemia ferrous sulfate stopped Full Code DVT pptx - eliquis DISPO Home with PT when medically clear, CM to discuss with family options for assistance at home Quality Stroke Does the patient have a stroke diagnosis?: No VTE Prior VTE?: No VTE Risk Level:: Medical - moderate - high VTE Device Contraindication: N/A - Device Ordered VTE Drug Contraindication: Treatment Not Indicated
--- NOTE | 2024-07-25 12:25 | PM.PNGS ---
Subjective Subjective Date of Service: 07/25/24 Interval history: Patient claims he used to be discharged today. Still having symptomatic hemorrhoids but improved. Had some bleeding with last bowel movement. Physical Exam Vital Signs: Vital Signs: Last Vital Signs Temp 97.4 F 07/25/24 11:06 Pulse 78 07/25/24 11:06 Resp 18 07/25/24 11:06 BP 104/64 07/25/24 11:06 Pulse Ox 98 07/25/24 11:06 O2 Del Method Room Air 07/25/24 11:06 BMI result Body Mass Index 27.2 GI: Other: Abdomen is benign. Objective Data Active Medications Acetaminophen (Acetaminophen 325 Mg Tablet) 650 mg PO Q6H PRN PRN Reason: Pain, Mild 1-3,fever,headache Apixaban (Apixaban 5 Mg Tablet) 5 mg PO BID [facility] Last Admin: 07/25/24 08:21 Dose: 5 mg Documented By: WILLY Calcium Carbonate (Calcium Carbonate 750 Mg Tab.Chew) 750 mg PO Q4H PRN PRN Reason: Heartburn Digoxin (Digoxin 0.25 Mg Tablet) 0.25 mg PO DAILY [facility]; Protocol Last Admin: 07/25/24 08:21 Dose: 0.25 mg Documented By: WILLY Diltiazem HCl (Diltiazem Hcl 30 Mg Tablet) 30 mg PO QID [facility]; Protocol Last Admin: 07/25/24 08:20 Dose: 30 mg Documented By: WILLY Docusate Sodium (Docusate Sodium 100 Mg Capsule) 100 mg PO DAILY [facility] Last Admin: 07/25/24 08:21 Dose: 100 mg Documented By: WILLY Folic Acid (Folic Acid 1 Mg Tablet) 1 mg PO DAILY [facility] Last Admin: 07/25/24 08:24 Dose: 1 mg Documented By: WILLY Magnesium Hydroxide (Milk Of Magnesia 30 Ml Oral.Susp) 30 ml PO DAILY PRN PRN Reason: Constipation Melatonin (Melatonin 3 Mg Tablet) 6 mg PO BEDTIME PRN PRN Reason: Insomnia Metoprolol Tartrate (Metoprolol Tartrate 100 Mg Tablet) 100 mg PO Q12H [facility]; Protocol Last Admin: 07/25/24 08:21 Dose: 100 mg Documented By: WILLY Omeprazole (Omeprazole 40 Mg Capsule.Dr) 40 mg PO BID@0630,1630 [facility] Last Admin: 07/25/24 06:28 Dose: 40 mg Documented By: SLY Ondansetron HCl (Ondansetron Hcl 4 Mg/2 Ml Vial) 4 mg IVPUSH Q8H PRN PRN Reason: Nausea and Vomiting Sodium Chloride (0.9 % Sodium Chloride Flush 3 Ml Syringe) 3 ml IVFLUSH QSHIFT [facility] Last Admin: 07/25/24 08:23 Dose: 3 ml Documented By: WILLY Thiamine HCl (Thiamine Hcl 100 Mg Tablet) 100 mg PO DAILY [facility] Last Admin: 07/25/24 08:21 Dose: 100 mg Documented By: WILLY Labs 07/25/24 06:58 07/25/24 06:58 Labs: Laboratory Results - last 24 hr 07/25/24 06:58 MCV 90.0 MCH 30.1 MCHC 33.4 RDW 13.4 Plt Count 132 L MPV 10.3 Absolute Nucleated RBC 0.000 Nucleated RBC % (auto) 0.0 Anion Gap 10 L Estim Creat Clear Calc 74.7 Estimated GFR > 60 Random Glucose 85 Calcium 8.0 L B-Natriuretic Peptide 781 H Procedures Date of Service Date of Service: 07/25/24 Progress Note: A&P Assessment and plan (1) Hemorrhoids reducible with difficulty: Status: Acute Plan Patient was to follow-up in office as outpatient once medical situation is stabilized. All questions answered. Time Spent With Patient Time: Total time managing care of this patient today ____ minutes. Quality Stroke Does the patient have a stroke diagnosis?: No VTE Prior VTE?: No VTE Risk Level:: Medical - moderate - high VTE Device Contraindication: N/A - Device Ordered VTE Drug Contraindication: Treatment Not Indicated
[2024-07-26 03:33] VITALS: BP 117/72; PULSE 90; RESP 18; TEMP 36.6; O2SAT 97
[2024-07-26] MEDS: Omeprazole 40 MG CAPSULE.DR PO (05:30)
[2024-07-26 07:16] VITALS: BP 128/79; PULSE 90; RESP 16; TEMP 36.2; O2SAT 98
--- NOTE | 2024-07-26 08:04 | P.DS_ITS ---
DS: Providers Provider Date of Service: 07/26/24 Date of admission: 07/20/24 15:54 Date of discharge: 07/26/24 Primary care physician: Kermit Tabares MD Consults: 07/20/24 15:54 Consult to Cardiology Routine Consulting Provider: [facility] Reason for consultation: afib rvr Consult to Gastroenterology Routine Consulting Provider: Randolph Nogueira Reason for consultation: gi bleed 07/20/24 21:28 Addiction Medicine Routine Consulting Provider: Addiction Covering Reason for consultation: positive etoh screen 07/22/24 08:19 Consult to General Surgery Routine Consulting Provider: George Wood Reason for consultation: hemorrhoids Has provider been notified: Yes DS: Diagnosis Discharge Diagnosis (1) Hemorrhoids reducible with difficulty: Status: Acute DS: Summary Hospital Course Hospital Course: 79-year-old man presented to the ER with continued rectal bleeding and weakness. He was discharged from [facility] on 06/21/2024 and at that time treated for rectal bleeding secondary to gastric ulcer, hemorrhoids and short episode of nonsustained ventricular tachycardia. At that time patient was started on beta blockade but reported that he did not take it this morning. Apparently he had gotten up in the waiting room while in the ED and became short of breath and weak. He was found to be in atrial fibrillation with heart rate as high as 130. He was started on a Cardizem drip. Patient denied any chest pain, dizziness, lightheadedness, nausea, vomiting, diarrhea, blurred vision, headache. In the ED, his H&H is noted to be stable. Plan is to admit patient for treatment of atrial fibrillation with rapid ventricular response and continued rectal bleeding. 79-year-old man treated for atrial fibrillation with rapid ventricular response, new onset. He was initially started on IV Cardizem drip, did loaded. He had some dizziness/lightheadedness that was likely related to the elevated heart rate from the AFib as his orthostatic blood pressures were negative. He was started on metoprolol 100 mg twice daily, digoxin 0.2 mg daily and Cardizem 30 mg 3 times a day. His dizziness did resolve after being treated with these medications. He did have a head CT which was negative for any abnormality, chest x-ray was negative for consolidation effusion after he did report some mil d chest heaviness. He has been ambulating in his room without difficulties. He was seen evaluated by Physical therapy who recommended home with PT. He was seen and evaluated by Cardiology who recommended starting him on Eliquis 5 mg twice daily. Plan will be for possible cardioversion in 3-4 weeks after being on the OAC. He did have some short episodes of bradycardia with heart rate in the 40s but did not pain and resolved, completely. He had some dark stools as well that were initially felt to be melena but given stable H&H and normal stools likely secondary to iron supplementation. And HH remained stable during hospitalization and he has been on PPI. Time Attestation Discharge Coordination Time (in mins): 42 Quality: Safe Use of Opioids Does Pt have an Active Cancer Diagnosis on the Problem List?: No Quality: Stroke Does the patient have a stroke diagnosis?: No Physical Exam Vital Signs: Vital Signs: Last Vital Signs Temp 97.2 F 07/26/24 07:16 Pulse 90 07/26/24 07:16 Resp 16 07/26/24 07:16 BP 128/79 07/26/24 07:16 Pulse Ox 98 07/26/24 07:16 O2 Del Method Room Air 07/26/24 07:16 BMI result Body Mass Index 27.2 Appearing in no acute distress head is normocephalic atraumatic eyes pupils are PERRLA sclera is anicteric mouth throat mucous membranes are intact and moist neck is supple no lymphadenopathy, no JVD noted lung sounds are clear to auscultation heart regular rate rhythm, clear S1, S2 positive bowel sounds, abdomen is soft, nontender neuro patient is alert x3, no focal deficits DS: Data Data Completed and Pending Completed studies during hospitalization [Text1]: Procedures Excision of Stomach, Pylorus, Via Natural or Artificial Opening Endoscopic, Diagnostic (06/17/24) Transfusion of Nonautologous Red Blood Cells into Peripheral Vein, Percutaneous Approach (06/17/24) Labs on day of discharge: Laboratory Results - last 24 hr 07/25/24 06:58 B-Natriuretic Peptide 781 H Discharge Plan Discharge Anticipated Discharge Date/Time: 07/26/24 07:59 Patient Disposition: Home Health Service Discharge Diagnosis: Atrial fibrillation with rapid ventricular response has been lightheadedness Dark stool Referrals: [facility] [Outside] - 1 Week Kermit Rangel MD [Primary Care Provider] - 1 Week George Wood MD [Physician] - 1 Week Heladio Trivedi MD [Physician] - 2 Weeks Discharge Medications: New metoprolol tartrate 100 mg Tablet 100 mg PO Q12H Qty: 60 0RF Protocol: Hold for SBP/HR < HOLD for SBP < : 90 HOLD for HR < : 60 digoxin 250 mcg (0.25 mg) Tablet 0.25 mg PO DAILY Qty: 60 0RF Protocol: Hold for HR <: HOLD for HR < : 60 Eliquis 5 mg Tablet 5 mg PO BID Qty: 60 0RF diltiazem HCl 120 mg capsule,extended release 24hr 120 mg PO DAILY Qty: 30 0RF Continued folic acid 1 mg Tablet 1 mg PO DAILY Qty: 30 0RF thiamine mononitrate (vit B1) 100 mg Tablet 100 mg PO DAILY Qty: 30 0RF (DME) T.E.D. Knee Afyopi-F-Chfx Misc See Rx Instructions .ROUTE .MEDSUPPLY Qty: 12 0RF Rx Instructions: As directed ferrous sulfate 325 mg (65 mg iron) tablet 325 mg DAILY docusate sodium 100 mg capsule 100 mg PO DAILY acetaminophen 325 mg Tablet 650 mg PO Q6H PRN (Reason: knee pain) omeprazole 40 mg capsule,delayed release(DR/EC) 40 mg PO BID@0630,1630 Rx Instructions: please take omeprazole 40 mg p.o. b.i.d. until07/22/23, then switched to omeprazole 40 mg daily. Discontinued metoprolol succinate 25 mg Tablet Extended Release 24 Hr 25 mg PO DAILY Qty: 90 0RF Protocol: Hold for SBP/HR < HOLD for SBP < : 90 HOLD for HR < : 60 Discharge Orders: Discharge Order (Routine); Ordered 07/26/24 Ordered By: Najma Israel Diet: Advance to usual diet Activity on Discharge: As tolerated Stand Alone Forms: Patient Portal Discharge page Print Language: Yakut Care Plan Goals: Monitor for any signs of rectal bleeding and call your primary care provider You have been started on new medications including metoprolol 100 mg twice daily, digoxin 0.25 mg daily, Cardizem 120 daily and Eliquis 5 mg twice daily Limit driving for a few weeks Health Concerns: Atrial fibrillation with rapid ventricular response has been lightheadedness Dark stool Plan of Treatment: Follow-up with primary care provider as needed Follow up with Cardiology in to tertiary weeks for possible cardioversion Take all medications as prescribed Assessment: See discharge summary
[2024-07-26] MEDS: Apixaban 5 MG TABLET PO (09:03)
[2024-07-26] MEDS: Metoprolol Tartrate 100 MG TABLET PO (09:03)
[2024-07-26] MEDS: Thiamine HCL 100 MG TABLET PO (09:03)
[2024-07-26] MEDS: Digoxin 0.25 MG TABLET PO (09:04)
[2024-07-26] MEDS: dilTIAZem HCL 30 MG TABLET PO (09:04)
[2024-07-26] MEDS: 0.9 % Sodium Chloride Flush 3 ML SYRINGE IVFLUSH (09:04)
[2024-07-26] MEDS: Folic Acid 1 MG TABLET PO (09:04)
[2024-07-26] MEDS: Docusate Sodium 100 MG CAPSULE PO (09:04)
[2024-07-26 09:47] LABS: B Type Natriuretic Peptide 633 pg/mL (<100)
--- NOTE | 2024-07-26 10:55 | PM.PNCARD ---
Subjective Subjective Date of Service: 07/26/24 Principal diagnosis: Atrial fibrillation, recent upper GI bleed Interval history: Patient states that he feels okay. He denies any complaints like angina or shortness of breath or in fact anything cardiac related. He wants to go home today. Review of Systems Review of Systems Yes all other systems are reviewed and are negative Constitutional: Reports as per HPI and Reports no additional constitutional complaints Eyes: Reports as per HPI and Denies no additional eye complaints Denies system reviewed and no additional complaints, except as documented and Reports as per HPI Cardiovascular: Reports as per HPI, Reports no additional cardiovascular complaints, Denies acrocyanosis, Denies cool extremities, Denies chest pain, Denies leg edema, Denies lightheadedness, Denies palpitations and Denies dyspnea Respiratory: Reports as per HPI, Denies no additional respiratory complaints and Denies dyspnea Gastrointestinal: Reports as per HPI and Denies no additional gastrointestinal complaints Genitourinary: Reports no additional male genitourinary complaints and Reports as per HPI Musculoskeletal: Reports no additional musculoskeletal complaints and Reports as per HPI Skin/Breast: Reports system reviewed and no additional complaints, except as docu Reports system reviewed and no additional complaints, except as documented and Reports as per HPI Psychiatric: Reports no additional psychiatric complaints and Reports as per HPI Endocrine: Reports no additional endocrine complaints, Reports as per HPI and Denies palpitations Hematologic/Lymphatic: Reports no additional hematologic/lymphatic complaints and Reports as per HPI Allergic/Immunologic: Reports no additional allergic/immunologic complaints and Reports as per HPI Physical Exam Vital Signs: Last Vital Signs Temp 97.2 F 07/26/24 07:16 Pulse 90 07/26/24 07:16 Resp 16 07/26/24 07:16 BP 128/79 07/26/24 07:16 Pulse Ox 98 07/26/24 07:16 O2 Del Method Room Air 07/26/24 07:16 BMI result Body Mass Index 27.2 Const General: comfortable and no acute distress Orientation/consciousness: patient oriented x3 HEENT Other: Unremarkable Head: Yes normal to inspection Neck Neck: Yes normal visual inspection Chest Chest palpation & inspection: normal inspection of the chest Resp Auscultation: clear to auscultation bilaterally Cardio Palpation: normal PMI Heart sounds: S1 normal heart sound present, S2 normal heart sound present, no gallops, no murmurs and no rubs GI Palpation (GI): Soft to palpation Back/Spine/Pelvis Other: unremarkable Skin General skin exam: no rashes or lesions noted Neuro General: patient oriented x3 Extrem General: Yes normal to inspection Psych Mental Status: mental status grossly normal Objective Labs and Meds 07/25/24 06:58 07/25/24 06:58 Lab results: Laboratory Results - last 24 hr 07/26/24 08:48 B-Natriuretic Peptide 633 H Progress Note: A&P Assessment and plan (1) Atrial fibrillation with RVR: Status: Acute Plan Currently on rate control with metoprolol, diltiazem, digoxin. Telemetry reviewed in detail and over the last 24 hours, essentially atrial fibrillation with controlled rate. Currently, rate is about 100/Min. Do not see any profound bradycardia or tachycardia. Remains on anticoagulation with Eliquis. Yesterday, had a long conversation with both his daughters and explained the plan of care. They asked questions about heart rate management and explained that it may take some time to get it under ideal control but for the most part it seemed okay as an inpatient. They agree with that. Eventually, outpatient Holter will need to be set up. If there is no bleeding issues on anticoagulation, then further care with possible cardioversion. Or he could also remain on rate control. To be decided. They also asked questions about ischemic workup extra and those issues will need to be addressed as an outpatient. Currently he has got absolutely no angina. FU in clinic as scheduled. Discussed with Najma Israel. Time Spent With Patient Time: Total time managing care of this patient today ____ minutes. Progress Note: Quality Stroke Does the patient have a stroke diagnosis?: No Procedures Date of Service Date of Service: 07/26/24
[2024-07-26 11:17] VITALS: BP 112/71; PULSE 78; RESP 18; TEMP 36.1; O2SAT 100
--- NOTE | 2024-07-26 11:52 | P.F2F_ITS ---
Service Date Service Date: 07/26/24 Encounter Date of encounter: 07/26/24 Reasons for Services Signs and symptoms assessed: Atrial fibrillation with rapid ventricular response Reason for nursing home: CV/CP assess and/or care and teach disease management Reason for physical therapy: home safety and mobility Homebound: Leaving the home is medically contraindicated at this time without the asist of a device and/or another person due th the listed conditions above and below. Reason homebound: weakness related to hospital stay Certification: Based on the above findings, I certify that this patient is confined to the home and needs intermittent nursing home care, physical therapy and/or speech therapy, or continues to need occupational therapy. The patient is under my care, and I have initiated the establishment of the plan of care. The patient will be followed by a physician who will periodically review the plan of care. Time Spent With Patient Time: Total time managing care of this patient today ____ minutes.
--- NOTE | 2024-07-26 12:04 | MHC.CM.PN ---
Second IMM 07/26/24, Pt has been medically cleared for DC, he will go home via private transport, and have home care services from [facility].
--- NOTE | 2024-07-26 16:40 | P.CDIM_ITS ---
PROVIDER RESPONSE TEXT: To clarify, the appropriate diagnosis supported by the clinical indicators: Other (explain): new QUERY TEXT: PHYSICIAN'S DOCUMENTATION REQUEST Date of Query: 07/26/2024 12:06 PM EST Patient Name: Geovanni Nick Admit Date: 07/20/2024 Dear Najma Israel YARD ASSOCIATE, A review of the medical record indicates additional documentation may be needed. Please review below and update the documentation accordingly. Clinical Indicators: Progress notes: Atrial fibrillation with heart rate as high as 130. Started on Cardizem drip. Admit for treatment of atrial fibrillation with rapid ventricular response. Cardiology - keep current medication cardizem, metoprolol, digoxin. If possible, please provide further specificity regarding atrial fibrillation, such as: Paroxysmal atrial fibrillation Persistent atrial fibrillation Long lasting persistent atrial fibrillation Chronic or Permanent atrial fibrillation Other (explain) Clinically unable to determine (explain) Thank you, Meghna Quinones, CCS, CDIS Use of terms such as suspected, likely, concern for, or probable (associated with a specific diagnosi s that is being evaluated, monitored, or treated as if it exists) are acceptable and can be coded in the inpatient se tting, when documented at the time of discharge. Please use your independent medical judgment in providing your response. THIS QUERY IS PART OF THE PERMANENT MEDICAL RECORD
== END 2024-07-26 15:00 | disposition home health service (06) | DRG 310 ==
LOC: HO.ED 15:33 → HO.EDOVER 16:00 → HO.IMC 19:54
PROVIDERS: Family Medicine; Physician Assistant; Physician Assistant Medical; Admitting Provider Nurse Practitioner Acute Care; Emergency Provider Emergency Medicine; PCP Internal Medicine; Visit Provider Nurse Practitioner Acute Care
DX: I48.91 Unspecified atrial fibrillation (principal); K25.7 Chronic gastric ulcer without hemorrhage or perforation; D50.9 Iron deficiency anemia, unspecified; K64.9 Unspecified hemorrhoids; E83.51 Hypocalcemia; Z79.899 Other long term (current) drug therapy
CPT/HCPCS: 36415; 70450; 71045; 80048; 80053; 81001; 83690; 83735; 83880; 84484; 85014; 85018; 85025; 85027; 85610; 86850; 86900; 86901; 93005; 97161; 99285; J1160; J7120

== ENCOUNTER → 2024-07-20 11:26 | Outpatient (BNV) | payer MEDICARE, MEDICAID, SELFPAY | PROVIDERS: Admitting Provider Nurse Practitioner Acute Care; Emergency Provider Emergency Medicine; PCP Internal Medicine; Visit Provider Internal Medicine Cardiovascular Disease | DX: I48.91 Unspecified atrial fibrillation (principal) | CPT/HCPCS: 93010 ==

== ENCOUNTER 2024-07-20 15:54 | Outpatient (BNV) | payer MEDICARE, MEDICAID, SELFPAY | END 2024-07-24 09:55 | PROVIDERS: Admitting Provider Nurse Practitioner Acute Care; Emergency Provider Emergency Medicine; PCP Internal Medicine; Visit Provider Radiology Diagnostic Radiology | DX: R42 Dizziness and giddiness (principal); R06.02 Shortness of breath | CPT/HCPCS: 70450; 71045 ==

== ENCOUNTER → 2024-07-20 15:54 | Outpatient (BNV) | payer MEDICARE, MEDICAID, SELFPAY | PROVIDERS: Admitting Provider Nurse Practitioner Acute Care; Emergency Provider Emergency Medicine; PCP Internal Medicine; Visit Provider Internal Medicine Cardiovascular Disease | DX: I48.91 Unspecified atrial fibrillation (principal) | CPT/HCPCS: 99222 ==

== ENCOUNTER → 2024-07-20 15:54 | Outpatient (BNV) | payer MEDICARE, MEDICAID, SELFPAY | PROVIDERS: Admitting Provider Nurse Practitioner Acute Care; Emergency Provider Emergency Medicine; PCP Internal Medicine; Visit Provider Nurse Practitioner Acute Care | DX: K92.2 Gastrointestinal hemorrhage, unspecified (principal); I48.91 Unspecified atrial fibrillation | CPT/HCPCS: 99223; 99232 ==

== ENCOUNTER → 2024-07-20 15:54 | Outpatient (BNV) | payer MEDICARE, MEDICAID, SELFPAY | PROVIDERS: Admitting Provider Nurse Practitioner Acute Care; Emergency Provider Emergency Medicine; PCP Internal Medicine; Visit Provider Surgery | DX: K64.8 Other hemorrhoids (principal) | CPT/HCPCS: 99222 ==

== ENCOUNTER 2024-08-01 08:41 | Outpatient (AMB) | payer MEDICARE, MEDICAID, SELFPAY ==
--- NOTE | 2024-08-01 08:45 | A.OFFVIS_ITS ---
Vital Signs 08/01/24 08:49 Height 5 ft 11 in Weight 189 lb BMI 26.4 BP 119/65 Blood Pressure Location Rt brachial Position Sitting Pulse 50 Intake Visit Reasons: Hemorrhoids Intake Note: Patient referred for hemorrhoids. Patient c/o: bleeding, discomfort. Logistics Officer Required: No Accompanied by: Self / Same As Patient Allergies No Known Allergies Allergy (Verified 08/01/24 08:50) HPI Comments Details: Patient was seen by me in the recent hospitalization last week because of symptomatic hemorrhoids. He has had pain and bleeding and prolapse from these. He has had colonoscopy and endoscopy in the past. He is currently on Eliquis. His symptoms have persisted. He would like to proceed with hemorrhoidectomy. As noted above, patient was seen and recent hospitalization. Chart was reviewed and patient evaluated [facility] Medical History NSVT (nonsustained ventricular tachycardia) Iron deficiency anemia Gastric ulcer Social History Household Members: None Housing: Apartment Do you presently have visiting nurse or other home services: No Alcohol intake: former Patient Tobacco Use Status: Never used Tobacco service: No Physical Exam Vital Signs: Last Vital Signs Pulse 50 08/01/24 08:49 BP 119/65 08/01/24 08:49 BMI result Body Mass Index 26.4 Chest Other: Chest sounds bilaterally, HS 1 in 2 GI Other: Abdomen is soft, benign. Anorectal exam demonstrates significant internal and external hemorrhoids. Rectal exam deferred secondary to patient's discomfort. Assessment & Plan Assessment & Plan (1) Hemorrhoids reducible with difficulty: Code(s): K64.8 - Other hemorrhoids Category: Surgical (2) Hemorrhoids: Code(s): K64.9 - Unspecified hemorrhoids Category: Surgical Plan Risks, benefits, alternatives of hemorrhoidectomy were reviewed with the patient and included but not limited to bleeding, infection, recurrence, numbness, pain, scarring, incontinence, and the patient wished to proceed. All questions answered. Patient will receive a mild bowel prep day prior. His Eliquis will also be addressed held preoperatively. Coding Level of Care Code Est Pt Level 5 (82537) Diagnoses Hemorrhoids reducible with difficulty K64.8 Hemorrhoids K64.9
[2024-08-01 08:49] VITALS: BP 119/65; PULSE 50; BMI 26.4
--- OUTSIDE RECORDS SUMMARY | 2024-08-01 09:01 | XMS_ITS ---
Author Organization [facility] Address [address] [place] [address] Care Team Providers Care Sap Bpc Developer Name Role Phone Cam acosta, [place] Primary Care Prov ider Unavailable Jero Hsieh, Randolph Unavailable [phone] REASON FOR VISIT daughter called Encounters Encounter Location Date Provider Diagnosis [facility] [address] [place] [address] 07/21/2024 Randolph Nogueiar Jr PLAN OF TREATMENT Next Appt Details Provider Name:Randolph wilkerson Jr, 08/26/2024 10:00:00 AM, [address] [place] [address] , [place], [place], [phone],
--- OUTSIDE RECORDS SUMMARY | 2024-08-01 09:01 | XMS_ITS ---
Author Organization [facility] Address [address] [place] [address] Care Team Providers Care Employer Relations Representative Name Role Phone Cam acosta, [place] Primary Care Prov ider Unavailable Jero Hsieh, Randolph Unavailable REASON FOR VISIT labs Encounters Encounter Location Date Provider Diagnosis [facility] [address] [place] [address] 07/05/2024 Randolph Nogueira Jr PLAN OF TREATMENT Next Appt Details Provider Name:Randolph wilkerson Jr, 08/26/2024 10:00:00 AM, [address] [place] [address] , [place], [place], [phone],
--- OUTSIDE RECORDS SUMMARY | 2024-08-01 09:02 | XMS_ITS ---
Author Organization [facility] Address [address] [place] [address] Care Team Providers Care Title I Paraprofessional Name Role Phone Cam acosta, Kermit Primary Care Prov ider Unavailable Randolph Nogueira Jr Unavailable [phone] ALLERGIES No Known Allergies REASON FOR VISIT [...] Problem Colon cancer screening (Z12.11) Active confirmed [id number] VITAL SIGNS BMI 25.38 kg/m2 06/29/2024 Blood pressure systolic 00 mm Hg 06/29/20 24 Blood pressure diastolic 00 mm Hg 024 Height 5 ft 11 in in 06/29/2024 Weight 182 lbs 06/29/2024 Encounters Encounter Location Date Provider Diagnosis [facility] [address] [place] [address] 06/29/2024 Randolph Nogueira Jr Acute gastric ulcer [...] Provider Name:Randolph wilkerson Jr, 08/26/2024 10:00:00 AM, [address] [place] [address] , [place], [place], [phone], Progress Notes * Examination Category Sub-Category Detail [...]
--- OUTSIDE RECORDS SUMMARY | 2024-08-01 09:02 | XMS_ITS | Patient Health Record ---
Author Organization [facility] Address [address] [place] [address] Care Team Providers Care Stocklayer Name Role Phone Cam acosta, Kermit Primary Care Prov idetony Nogueira Jr, Randolph Unavailable ALLERGIES No Known Allergies RESULTS Component Value Reference Range Notes Type and Screen Reviewed date:06/20/2024 09:16:50 AM Interpretation: Performing Lab:[facility], [address] [place] [phone] Notes/Report: Results at Issue Units as of 06/18/24 1158 ... Test View Group: Most Recent HGB HCT Results LABORATORY Date Time Test Result Flag Normal Range 06/18/24 0804 HGB 8.3 L 14.0-18.0 g/dl 06/18/24 0804 HCT 23.7 L 42.0-52.0 % Hgb 7-9 gm na No no Blood Type AP Antibody Screen NEGATIVE Red Blood Cells Reviewed date:06/20/2024 09:16:57 AM Interpretation: Performing Lab:[facility], [address] [place] [phone] Notes/Report: Red Blood Cells [id number] AP RC Red Blood Cells TRANSFUSED 06/18/24 1157 Red Blood Cells [id number] AP RC Red Blood Cells NOT AVAILABLE Pathology Reviewed date:06/24/2024 09:37:10 PM Interpretation: Performing Lab:[facility], [address] [place] [phone] Notes/Report: Complete Blood Count no Diff Reviewed date:06/20/2024 09:16:35 AM Interpretation: Performing Lab:[facility], [address] [place] [phone] Notes/Report: White Blood Count 4.6 4.8-10.8 X10*3/uL [...] Panel Reviewed date:06/20/2024 09:16:43 AM Interpretation: Performing Lab:[facility], [address] [place] [phone] Notes/Report: Sodium 138 135-145 mmol/L Potassium 3.9 [...] Diff Reviewed date:06/24/2024 09:37:45 PM Interpretation: Performing Lab:[facility], [address] [place] [phone] Notes/Report: White Blood Count 5.7 4.8-10.8 X10*3/uL [...] PROFILE Reviewed date:06/24/2024 09:36:37 PM Interpretation: Performing Lab:[facility], [address] [place] [phone] Notes/Report: Iron 31 45-160 mcg/dL Total Iron Binding Capacity 257 228-428 mcg/dL Percent Iron Saturation 12 15-50 % Unsaturated Iron Binding 226 Ferritin Reviewed date:06/24/2024 09:37:24 PM Interpretation: Performing Lab:[facility], [address] [place] [phone] Notes/Report: Ferritin 45 20-250 ng/mL Complete Blood Count Auto Di ff Reviewed date:07/05/2024 03:41:05 PM Interpretation: Performing Lab:[facility], [address] [place] [phone] Notes/Report: White Blood Count 5.7 4.8-10.8 X10*3/uL [...] PROFILE Reviewed date:07/05/2024 03:40:58 PM Interpretation: Performing Lab:[address] [phone] Notes/Report: Iron 103 45-160 mcg/dL Total Iron Binding Capacity 283 228-428 mcg/dL Percent Iron Saturation 36 15-50 % Unsaturated Iron Binding 180 Ferritin Reviewed date:07/05/2024 03:41:16 PM Interpretation: Performing Lab:[address] [phone] Notes/Report: Ferritin 27 20-250 ng/mL REASON FOR [...] gastric ulcer with hemorrhage (K25.0) Active confirmed [id number] Problem Colon cancer screening (Z12.11) Active confirmed [id number] VITAL SIGNS Blood pressure diastolic 00 mm Hg 06/29/2024 Height 5 ft 11 in in 06/29/2024 Blood pressure systolic 00 mm Hg 06/29/2024 Weight 182 lbs 06/29/2024 BMI 25.38 kg/m2 06/29/2024 Encounters Encounter Location Date Provider Diagnosis [facility] [address] [place] [phone] 06/29/2024 Randolph Nogueira Jr Acute gastric ulcer with hemorrhage K25.0 and Colon cancer screening Z12.11 [facility] [address] [place] [phone] 06/22/2024 Randolph Nogueira Jr Acute gastric ulcer with hemorrhage K25.0 [facility] [address] [place] [phone] 06/28/2024 Randolph Nogueira Jr [facility] [address] [place] [phone] 07/05/2024 Randolph Nogueira Jr [facility] [address] [place] [phone] 07/21/2024 Randolph Nogueira Jr ASSESSMENTS Encounter Date Diagnosis [...] GI ENDOSCOPY 06/29/2024 Next Appt Details Provider Name:Randolph wilkerson Jr, 08/26/2024 10:00:00 AM, [address] [place] [address] , [place], [place], [phone], Insurance Providers Payer Name Payer Address Payer Phone Subscriber Number Group Number Insured Name Patient Relationship to Insured Coverage Start Date Coverage End Date MEDICARE OF [place] [address] [place] [id number] [id number] [place] Self - patient is the insured MEDICAID OF [facility] [address] [place] [address] [id number] ТАТ[place]ЯНА [place] Self - patient is the insured MEDICAL (GENERAL) HISTORY Medical History History ICD Code GI bleed with gastric ulcer 07/12 Surgical History Surgery Date(Month/Year) HERNIA REPAIR BILATERAL AGE 4
== END 2024-08-01 08:55 | disposition home or self-care (01) ==
PROVIDERS: PCP Internal Medicine; Visit Provider Surgery
DX: K64.8 Other hemorrhoids (principal)
CPT/HCPCS: 99214

== ENCOUNTER → 2024-08-01 08:41 | Outpatient (BNVA) | payer MEDICARE, OTHER, SELFPAY | PROVIDERS: PCP Internal Medicine; Visit Provider Surgery | DX: K64.8 Other hemorrhoids (principal) | CPT/HCPCS: 99212 ==

== ENCOUNTER 2024-08-08 08:28 | Outpatient (AMB) | payer MEDICARE, SELFPAY ==
[2024-08-08 08:32] VITALS: BP 118/60; PULSE 66; BMI 25.5
--- NOTE | 2024-08-08 08:32 | A.OFFVIS_ITS ---
Vital Signs 08/08/24 08:32 Height 5 ft 11 in Weight 182 lb 15.739 oz BMI 25.5 BP 118/60 Blood Pressure Location Lt brachial Position Sitting Pulse 66 Pulse Source Monitor Intake Visit Reasons: [facility] f/up 1mth- per KM Allergies No Known Allergies Allergy (Verified 08/01/24 08:50) Medication List - Last Reconciled 08/08/24 by MINAL Au acetaminophen 650 mg PO Q6H PRN apixaban (Eliquis) 5 mg PO BID compr.stocking,knee,long,small (T.E.D. Knee Ubrlwi-B-Zzql [facility] [place] As directed digoxin 0.25 mg See Protocol PO DAILY diltiazem HCl CD 120 mg PO DAILY docusate sodium 100 mg PO DAILY ferrous sulfate 325 mg DAILY folic acid 1 mg PO DAILY metoprolol tartrate 100 mg See Protocol PO Q12H omeprazole 40 mg PO BID@0630,1630 thiamine mononitrate (vit B1) 100 mg PO DAILY HPI HPI [facility] f/up 1mth- per KM: Details: Geovanni is an 79-year-old male with past medical history of daily alcohol use, knee arthritis with use of NSAIDs who was admitted to [facility] early June with upper GI bleed. Endoscopy showed gastric ulcer. He was put on PPI and transfused. During that admission he was noted to have NSVT runs and was seen by Cardiology. He was started on metoprolol. An echocardiogram showed normal EF. He was readmitted a month later with weakness and rectal bleeding. He was found to have hemorrhoids and was seen by surgery with plan for outpatient follow-up. He was noted to have new onset atrial fibrillation and was treated with heart rate control. He was started on Eliquis for anticoagulation and his H&H remained stable. He now presents for post hospital follow-up. Today he reports he has been feeling very well with no concerning symptoms. He denies any heart palpitations, shortness of breath, chest discomfort at rest or with activity. No PND, orthopnea or edema. No lightheadedness, presyncope, syncope, falls. He has not notice any bleeding issues since his hospital discharge. He says he is active throughout the day normal ADLs and housework. He has been taking his medications as directed. He has no cardiac questions or concerns. [facility] Medical History Atrial fibrillation with RVR Orthostasis Upper gastrointestinal bleed NSVT (nonsustained ventricular tachycardia) Iron deficiency anemia Gastric ulcer Surgical History Hemorrhoids reducible with difficulty Social History Household Members: None Housing: Apartment Do you presently have visiting nurse or other home services: No Alcohol intake: former Patient Tobacco Use Status: Never used Tobacco service: No Review of Systems Const All systems reviewed & are unremarkable except as noted in HPI and below Denies weakness ENT Denies dizziness Card Denies chest pain, Denies chest pain with activity, Denies syncope, Denies rapid heart rate, Denies pedal edema, Denies edema, Denies leg edema, Denies lighthe adedness, Denies palpitations, Denies dyspnea, Denies dyspnea on exertion and Denies orthopnea Resp Denies cough, Denies dyspnea and Denies dyspnea on exertion GI Denies hematochezia and Denies change in stool character Musc Denies abnormal gait, Denies muscle cramps, Denies muscle weakness, Denies numbness, Denies radiating pain into limb and Denies tingling Neuro Denies abnormal gait, Denies dizziness, Denies syncope, Denies numbness, Denies tingling and Denies weakness Endo Denies palpitations Physical Exam Vital Signs: Last Vital Signs Pulse 66 08/08/24 08:32 BP 118/60 08/08/24 08:32 BMI result Body Mass Index 25.5 Const General: cooperative, healthy appearing, comfortable and no acute distress Orientation/consciousness: patient oriented x3 Neck Neck: Yes normal visual inspection and Yes no JVD Resp Effort & Inspection: normal respiratory effort Auscultation: clear to auscultation bilaterally, no crackles, no rales, no rhonchi and no wheezes Cardio Rate: regular rate Heart sounds: S1 normal heart sound present, S2 normal heart sound present, no murmurs and no rubs Neuro General: patient oriented x3 Extrem General: Yes normal to inspection, No no pedal edema and No calf tenderness Psych Appearance: grossly normal Mental Status: mental status grossly normal Speech and movement: Normal speech and movement present Office Procedures EKG Details: Today, read by me, atrial fibrillation, right axis, incomplete RBBB, T wave abn lead III, aVF, rate 66, Qtc 408ms [id number], Complete Assessment & Plan Assessment & Plan (1) Atrial fibrillation: Code(s): I48.91 - Unspecified atrial fibrillation Category: Medical Plan: New finding of atrial fibrillation when he presented to hospital on 07/20/2023 with weakness and rectal bleeding. He was treated for heart rate control and ultimately put on metoprolol, diltiazem and digoxin prior to discharge. Chads Vasc score of 2. He was started on Eliquis for anticoagulation. He was monitored closely due to his recent gastric ulcer and finding of hemorrhoidal bleeding. His H&H remained stable prior to discharge. Labs 07/25/2024 showed hemoglobin 13.9, creatinine 0.84. Echocardiogram 06/20/2024 showed EF 55-60%, basal inferior hypokinetic, mild pulmonary hypertension, left atrium severely dilated, right atrium likely dilated. He remained in AFib at time of discharge. Today he reports he has been feeling well since his hospital discharge with no concerning symptoms. He is not noticing shortness of breath or heart palpitations. He reports good energy levels. EKG today shows atrial fibrillation with right axis deviation, incomplete right bundle branch block, rate 66. Will check a Holter monitor to assess heart rate control. Will check a nuclear stress test to evaluate for any ischemia. Will check CBC and digoxin level. - at this time he seems to be tolerating anticoagulation. If he continues to tolerate it then cardioversion can be considered. He does have atrial enlargement which may make it difficult to keep him in normal rhythm. He is currently asymptomatic. Treating with rate control is also an option. Cardiology follow-up 4-6 weeks, sooner if needed. (2) NSVT (nonsustained ventricular tachycardia): Code(s): I47.29 - Other ventricular tachycardia Category: Medical Plan: During June admission he was noted to have NSVT episode on tele monitoring. He was started on metoprolol. An echocardiogram showed normal EF. He has been feeling well with no concerning symptoms. Will check a nuclear stress test to assess for ischemia. (3) Hospital discharge follow-up: Code(s): Z09 - Encounter for follow-up examination after completed treatment for conditions other than malignant neoplasm Category: Medical Plan: As above Plan Time spent on chart review, documentation, interview and assessment Orders: Orders ECG 3 day holter monitor Today I47.29 - Other ventricular tachycardia, I48.91 - Unspecified atrial fibrillation NM cardiolite stress test Today I47.29 - Other ventricular tachycardia Complete Blood Count Auto Diff Today I48.91 - Unspecified atrial fibrillation Digoxin Today I48.91 - Unspecified atrial fibrillation CA lexiscan stress w jas Today I47.29 - Other ventricular tachycardia, I48.91 - Unspecified atrial fibrillation Coding Level of Care Code Est Pt Level 4 (66642) Complex EM visit Add On G2211 Diagnoses Atrial fibrillation I48.91 NSVT (nonsustained ventricular tachycardia) I47.29 Hospital discharge follow-up Z09 CPT Codes EKG - CPT: 59323-[id number], Complete ([id number]) Time Spent (min) 30
== END 2024-08-08 09:14 | disposition home or self-care (01) ==
PROVIDERS: PCP Internal Medicine; Visit Provider Nurse Practitioner Family
DX: I48.91 Unspecified atrial fibrillation (principal); I47.29 Other ventricular tachycardia; Z09 Encounter for follow-up examination after completed treatment for conditions other than malignant neoplasm
CPT/HCPCS: 93010; 99214; G2211

== ENCOUNTER → 2024-08-08 08:28 | Outpatient (BNVA) | payer MEDICARE, OTHER, SELFPAY | PROVIDERS: PCP Internal Medicine; Visit Provider Nurse Practitioner Family | DX: Z09 Encounter for follow-up examination after completed treatment for conditions other than malignant neoplasm (principal); I48.19 Other persistent atrial fibrillation; I47.29 Other ventricular tachycardia; R94.31 Abnormal electrocardiogram [ECG] [EKG]; I45.19 Other right bundle-branch block | CPT/HCPCS: 93005; 99212 ==

== ENCOUNTER → 2024-08-10 09:28 | Outpatient (REF) | payer MEDICARE, OTHER, SELFPAY ==
--- NOTE | ~2024-08-10 | NM_ITS ---
Lexiscan Myocardial perfusion study Indication: Ventricular tachycardia Technique: The patient was brought in for a Lexiscan perfusion study on August 10, 2024 and was injected 0.4 mg of Lexiscan intravenously. Within a minute of this injection 30 mCi of sestamibi was given intravenously. Images were obtained using the SPECT gamma camera interlaced with the gating device. Images were obtained in supine position. Resting perfusion study was performed on August 12, 2024. Patient was administered 30 mCi of sestamibi intravenously at rest. Images were then obtained in supine position. Images obtained without without CT attenuation. Total DLP 88 mGy-cm. Images were processed with the software and compared side to side in short axis, horizontal long axis and vertical long axis views. Findings: Both stress as well as rest images are suboptimal due to intense subdiaphragmatic gastric as well as hepatic uptake interfering with inferolateral myocardial uptake The stress perfusion study showed nonattenuated images show severely to absent uptake in the basal inferior wall of the LV myocardium and mildly reduced uptake in the mid and apical portion all inferior wall as moderately reduced uptake in the basal inferolateral wall of the LV myocardium. Attenuated corrected images appear to be show moderate to severely reduced uptake in the basal inferior wall with improved uptake in the inferior wall of the LV myocardium.. The gated study shows reduced LV systolic function with calculated LVEF of 31%, although visually images have been ejection fraction appeared to be normal. LV cavity is markedly dilated in size. The gated study shows reduced wall thickening and contraction of basal inferior segments. Resting study shows nonattenuated images show no change in perfusion pattern compared to stress perfusion study.. Gating at rest was not performed due to atrial fibrillation. The findings are consistent with fixed basal inferior defect suggestive myocardial infarction with no clear reversible defect suggestive of ischemia. NM/NM cardiolite stress test Impression: 1. Myocardial perfusion imaging study shows infarcted basal inferior wall without any clear evidence of ischemia 2. Gated LVEF is 31% at stress although visually appears to be higher 3. Transient ischemic dilatation not present Nondiagnostic changes on EKG. Electronically signed by: Enrique Yi MD 08/12/2024 01:03 PM [facility]
--- NOTE | 2024-08-10 10:36 | CA_ITS ---
Acquisition Time: 2024-08-10 09:51:32 Total Exercise Time: 00:02:00 Test Indications: AFIB, NSVT, ABN EKG Medications: SEE H&P Protocol: LEXISCAN Max HR: 131 BPM 93% of Pred: 140 BPM Max BP: 132/58 mmHG Max Work Load: 1.0 METS Pharmacologic stress test with Lexiscan, with reports of dizziness, with frequent isolated PVCs, ventricular couplets and triplets, with normotensive response to injection. Nondiagnostic EKG for ischemia. In recovery, pt treated with IVP Aminophylline 75 mg to reverse Lexiscan. Pt feeling back to baseline. Nuclear images pending. Test reviewed with . Referred By: Ros Cline Electronically Signed By: Ronni Hernandez
== END ==
LOC: HO.CARD 09:28
PROVIDERS: PCP Internal Medicine; Visit Provider Nurse Practitioner Family
DX: I48.91 Unspecified atrial fibrillation (principal); I47.29 Other ventricular tachycardia
CPT/HCPCS: 78452; 93017; 93242; A9500; J0280; J2785

== ENCOUNTER → 2024-08-10 10:36 | Outpatient (BNV) | payer MEDICARE, MEDICAID, SELFPAY | PROVIDERS: PCP Internal Medicine | DX: I49.3 Ventricular premature depolarization (principal); R42 Dizziness and giddiness | CPT/HCPCS: 78452; 93016; 93018 ==

== ENCOUNTER 2024-09-09 08:03 | Outpatient (AMB) | payer MEDICARE, SELFPAY ==
--- OUTSIDE RECORDS SUMMARY | 2024-09-09 08:06 | XMS_ITS | Encounter Summary ---
Author Organization [employer] Address [address] [place] [address] Care Team Providers Care Label Pinker Name Role Phone Kermit Rangel MD Primary Care Prov ider Encounter Details Date Type Department Care Team (Latest Contact Info) Description 09/08/2024 Travel Social History Tobacco Use Types Packs/Day Years Used Date Smoking Tobacco: Former Cigarettes 0.3 34 S tarted: 1961 Smokeless Tobacco: Never Alcohol Use Standard Drinks/Week Comments Yes 0 (1 standard drink = 0.6 oz pur e alcohol) beer 3-4 daily Depression Answer Date Recorded Patient Health Questionnaire-9 Score 0 07/08/2024 Patient Health Questionnaire-9 Score 0 07/08/2024 Last PHQ-9: Questionnaire Data Not on file 1 09/08/2023 Housing Stability Answer Date Recorded What is your housing situation today? I have arthur bacon 09/08/[address] you li ve. Do you have problems with any of the following? None of the above 09/08/2024 Food Insecurity Answer Date Recorded Within the past 12 months, y ou worried that your food would run out before you got money to buy more: Never True 09/08/2024 Within the past 12 months,th e food you bought just didn't last and you didn't have enough money to get more: Never True Transportation Answer Date Recorded In the past 12 months, has l ack of transportation kept you from medical appts, meetings, work or from getting things needed for daily living? No 09/08/2024 Utilities Answer Date Recorded In the past 12 months, has t he electric, gas, oil or water company threatened to shut off services in your home? No 09/08/2024 Depression Answer Date Recorded Patient Health Questionnaire-2 Score 0 07/08/2024 Internet Access Answer Date Recorded Internet Access Q1 Yes 09/08/2024 Internet Access Q2 Not on file 09/08/2024 Sex and Gender Information Value Date Recorded Sex Assigned at Male 05/19/2022 10:18 AM EDT Legal Sex Male 10:18 AM EDT Gender Identity Male 05/19/2022 10:18 AM EDT Sexual Orientation Choose not to disclose 2021 10:18 AM EDT documented as of this encounter Plan of Treatment Upcoming Encounters Date Type Department Care Team (Late st Contact Info) Description 10/04/2024 10:15 AM EDT Office Visit [facility] [address] [place] [address] Ian Jauregui MD [address] [place] [address] documented as of this encounter Visit Diagnoses Not on filedocumented in this encounter Additional Health Concerns Assessment Noted Time PHQ-9 Depression Total Score: 0 07/08/20 9:15 AM EST documented as of this encounter Care Teams Label Pinker Relationship Specialty Start Date End Date Kermit Rangel MD [address] [place] [address] PCP - General Internal Medicine 07/11/24 Glenn TOTH 07/28/24 documented as of this encounter
--- OUTSIDE RECORDS SUMMARY | 2024-09-09 08:06 | XMS_ITS ---
Author Organization [facility] Address [address] [place] [address] Care Team Providers Care Science Education Professor Name Role Phone Cam acosta, Kermit Primary Care Prov ider Unavailable Randolph Nogueira Jr Unavailable REASON FOR VISIT put on eliquis MEDICATIONS Medication SIG (Take, Route, Frequency, Duration) Notes Start Date End Date Status MiraLax (colon prep) 8.3 ounce ((238) grams mixed with Gatorade or Crystal Light orally begin at 5:00 p.m. the day before the procedure for 1 day 08/18/2024 Unknown Dulcolax (colon prep) 5 MG take at 3:00 p.m and 7:00p.m. Orally two tablets twice a day for one day for 1 day 08/18/2024 Unknown Dulcolax (colon prep) 5 MG take at 3:00 p.m and 7:00p.m. Orally two tablets twice a day for one day for 1 day 08/17/2024 Unknown MiraLax (colon prep) 8.3 ounce ((238) grams mixed with Gatorade or Crystal Light orally begin at 5:00 p.m. the day before the procedure for 1 day 08/17/2024 Unknown Folic Acid 1 MG TAKE ONE TABLET EVER Y DAY Oral for 30 Unknown Iron (Ferrous Sulfate) 325 (65 Fe) MG 1 tablet Orally daily for 30 day(s) 06/29/2024 Unknown Metoprolol Succinate ER 100 MG 1 tablet Orally Once a day Unknown Omeprazole 40 MG Oral for 45 U nknown Thiamine HCl 100 MG TAKE ONE TABLET EVER Y DAY Oral for 30 Unknown Acetaminophen 650 MG/20.3ML as directed Orally Active Apixaban 5 MG as directed Orally Active Digoxin 0.25 MG/ML as directed Injection Active dilTIAZem HCl 120 MG as directed Orally Active Docusate Sodium 100 MG 1 capsule as need ed Orally Once a day for 30 day(s) Active Encounters Encounter Location Date Provider Diagnosis [facility] [address] [place] [address] 08/19/2024 Randolph Nogueira Jr PLAN OF TREATMENT Next Appt Details Provider Name:Randolph wilkerson Jr, 10/14/2024 08:20:00 AM, [address] [place] [address] , [place], [place], [phone],
--- OUTSIDE RECORDS SUMMARY | 2024-09-09 08:07 | XMS_ITS | Patient Health Record ---
Author Organization [facility] Address [address] [place] [address] Care Team Providers Care Cement Railroad Car Loader Name Role Phone Cam acosta, Kermit Primary Care Prov idetony Nogueira Jr, Randolph Unavailable [phone] ALLERGIES No Known Allergies RESULTS Component Value Reference Range Notes Type and Screen Reviewed date:06/20/2024 09:16:50 AM Interpretation: Performing Lab:[facility], [address] [place] [phone] Notes/Report: Results at Issue Units as of 06/18/24 1158 ... Test View Group: Most Recent HGB HCT Results LABORATORY Date Time Test Result Flag Normal Range 06/18/24 0804 HGB 8.3 L 14.0-18.0 g/dl 06/18/24 0804 HCT 23.7 L 42.0-52.0 % Hgb 7-9 gm na No no Blood Type AP Antibody Screen NEGATIVE Red Blood Cells Reviewed date:06/20/2024 09:16:57 AM Interpretation: Performing Lab:[facility], [address] [place] [phone] Notes/Report: Red Blood Cells [id number] AP RC Red Blood Cells TRANSFUSED 06/18/24 1157 Red Blood Cells [id number] AP RC Red Blood Cells NOT AVAILABLE Pathology Reviewed date:06/24/2024 09:37:10 PM Interpretation: Performing Lab:[facility], [address] [place] [phone] Notes/Report: Complete Blood Count no Diff Reviewed date:06/20/2024 09:16:35 AM Interpretation: Performing Lab:[facility], [address] [place] [phone] Notes/Report: White Blood Count 4.6 4.8-10.8 X10*3/uL [...] Panel Reviewed date:06/20/2024 09:16:43 AM Interpretation: Performing Lab:[facility], [address] [place] [phone] Notes/Report: Sodium 138 135-145 mmol/L Potassium 3.9 [...] Diff Reviewed date:06/24/2024 09:37:45 PM Interpretation: Performing Lab:[facility], [address] [place] [phone] Notes/Report: White Blood Count 5.7 4.8-10.8 X10*3/uL [...] PROFILE Reviewed date:06/24/2024 09:36:37 PM Interpretation: Performing Lab:[facility], [address] [place] [phone] Notes/Report: Iron 31 45-160 mcg/dL Total Iron Binding Capacity 257 228-428 mcg/dL Percent Iron Saturation 12 15-50 % Unsaturated Iron Binding 226 Ferritin Reviewed date:06/24/2024 09:37:24 PM Interpretation: Performing Lab:[facility], [address] [place] [phone] Notes/Report: Ferritin 45 20-250 ng/mL Complete Blood Count Auto Di ff Reviewed date:07/05/2024 03:41:05 PM Interpretation: Performing Lab:[facility], [address] [place] [phone] Notes/Report: White Blood Count 5.7 4.8-10.8 X10*3/uL [...] PROFILE Reviewed date:07/05/2024 03:40:58 PM Interpretation: Performing Lab:[address] [phone] Notes/Report: Iron 103 45-160 mcg/dL Total Iron Binding Capacity 283 228-428 mcg/dL Percent Iron Saturation 36 15-50 % Unsaturated Iron Binding 180 Ferritin Reviewed date:07/05/2024 03:41:16 PM Interpretation: Performing Lab:[address] [phone] Notes/Report: Ferritin 27 20-250 ng/mL REASON FOR REFERRAL No Information MEDICATIONS Medication SIG (Take, Route, Frequency, Duration) Notes Start Date End Date Status Iron (Ferrous Sulfate) 325 (65 Fe) MG 1 tablet Orally daily for 30 day(s) 06/29/2024 Unknown Acetaminophen 650 MG/20.3ML as directed Orally Active Apixaban 5 MG as directed Orally Active MiraLax (colon prep) 8.3 ounce ((238) grams mixed with Gatorade or Crystal Light orally begin at 5:00 p.m. the day before the procedure for 1 day 08/18/2024 Unknown Metoprolol Succinate ER 100 MG 1 tablet Orally Once a day Unknown Omeprazole 40 MG Oral for 45 U nknown Thiamine HCl 100 MG TAKE ONE TABLET EVER Y DAY Oral for 30 Unknown Digoxin 0.25 MG/ML as directed Injection Active Dulcolax (colon prep) 5 MG take at 3:00 p.m and 7:00p.m. Orally two tablets twice a day for one day for 1 day 08/18/2024 Unknown dilTIAZem HCl 120 MG as directed Orally Active Dulcolax (colon prep) 5 MG take at 3:00 p.m and 7:00p.m. Orally two tablets twice a day for one day for 1 day 08/17/2024 Unknown Docusate Sodium 100 MG 1 capsule as need ed Orally Once a day for 30 day(s) Active MiraLax (colon prep) 8.3 ounce ((238) grams mixed with Gatorade or Crystal Light orally begin at 5:00 p.m. the day before the procedure for 1 day 08/17/2024 Unknown Folic Acid 1 MG TAKE ONE TABLET EVER Y DAY Oral for 30 Unknown SOCIAL HISTORY Tobacco Use: Social History Observation [...] gastric ulcer with hemorrhage (K25.0) Active confirmed [id number] Problem Colon cancer screening (Z12.11) Active confirmed [id number] VITAL SIGNS Blood pressure diastolic 00 mm Hg 06/29/2024 Height 5 ft 11 in in 06/29/2024 Blood pressure systolic 00 mm Hg 06/29/2024 Weight 182 lbs 06/29/2024 BMI 25.38 kg/m2 06/29/2024 Encounters Encounter Location Date Provider Diagnosis [facility] Outpatient [address] [place] [id number] 08/26/2024 Randolph Nogueira Jr [facility] [address] [place] [phone] 06/29/2024 Randolph Nogueira Jr Acute gastric ulcer with hemorrhage K25.0 and Colon cancer screening Z12.11 [facility] [address] [place] [phone] 06/22/2024 Randolph Nogueira Jr Acute gastric ulcer with hemorrhage K25.0 [facility] [address] [place] [phone] 06/28/2024 Randolph Nogueira Jr [facility] [address] [place] [phone] 07/05/2024 Randolph Nogueira Jr [facility] [address] [place] [phone] 07/21/2024 Randolph Nogueira Jr [facility] [address] [place] [phone] 08/12/2024 Randolph Nogueira Jr [facility] [address] [place] [phone] 08/18/2024 Randolph Nogueira Jr [facility] [address] [place] [phone] 08/19/2024 Randolph Nogueira Jr [facility] [address] [place] [phone] 08/19/2024 Randolph Nogueira Jr [facility] [address] [place] [phone] 08/31/2024 Randolph Nogueira Jr ASSESSMENTS Encounter Date Diagnosis [...] Provider Name:Randolph wilkerson Jr, 10/14/2024 08:20:00 AM, [address] [place] [address] , [place], [place], [id number], Insurance Providers Payer Name Payer Address Payer Phone Subscriber Number Group Number Insured Name Patient Relationship to Insured Coverage Start Date Coverage End Date MEDICARE OF [place] [address] [place] [id number] [place]А [place] Self - patient is the insured MEDICAID OF [facility] [address] [place] [address] [id number] ТАТЬЯНА [place] Self - patient is the insured MEDICAL (GENERAL) HISTORY Medical History History ICD Code GI bleed with gastric ulcer 07/12 Surgical History Surgery Date(Month/Year) HERNIA REPAIR BILATERAL AGE 4
--- OUTSIDE RECORDS SUMMARY | 2024-09-09 08:07 | XMS_ITS | Encounter Summary ---
Author Organization [employer] Address [address] [facility] 7[address] [place] [address] Care Team Providers Care Direct Care Supervisor Name Role Phone Kermit Rangel MD Primary Care Prov ider Encounter Details Date Type Department Care Team ([facility] Contact Info) Description 07/11/2024 Telephone [facility] MEDICINE [address] [place] [address] Kermit Rangel MD [address] [place], [place] [phone] Social History Tobacco Use Types Packs/Day Years [...] Questionnaire Data Not on file 1 09/08/2023 Depression Answer Date Recorded Patient Health Questionnaire-2 Score 0 07/08/2024 Sex and Gender Information Value Date Recorded Sex Assigned at Male 05/19/2022 10:18 AM EDT Legal Sex Male 10:18 AM EDT Gender Identity Male 05/19/2022 10:18 AM EDT Sexual Orientation Choose not to disclose 2021 10:18 AM EDT documented as of this encounter Plan of Treatment Upcoming Encounters Date Type Department Care Team ([facility] Contact Info) Description 10/04/2024 10:15 AM EDT Office Visit [facility] MED & PEDS [address] [place] [address] Ian Jauregui MD [address] [place] [address] documented as of this encounter Visit Diagnoses Not on filedocumented in this encounter Additional Health Concerns Assessment Noted Time PHQ-9 Depression Total Score: 0 07/08/20 9:15 AM EST documented as of this encounter Care Teams Direct Care Supervisor Relationship Specialty Start Date End Date Kermit Rangel MD [address] [place] [address] PCP - General Internal Medicine 07/11/24 Glenn TOTH 07/28/24 documented as of this encounter
--- OUTSIDE RECORDS SUMMARY | 2024-09-09 08:07 | XMS_ITS | Encounter Summary ---
Author Organization [employer] Address [address] [facility] [address] [place] [address] Care Team Providers Care Data Center Solutions Architect Name Role Phone Kermit Rangel MD Primary Care Prov ider Reason for Visit * Reason Onset Date Comments Appointment Request 07/29/2024 Encounter Details Date Type Department Care Team ([facility] st Contact Info) Description 07/29/2024 Telephone [facility] MEDICINE [address] [place] [address] Kermit Rangel MD [address] [place], [place] [phone] Appointment Request Social History Tobacco Use Types Packs/Day Years [...] AM EDT documented as of this encounter Miscellaneous Notes * Telephone Encounter - Kunal Guzman - 07/29/2024 2:05 PM EST Tc from Belinda daughter requesting a callback in regards Dermatology referral as she informs pt has appointment 08/04/2024 will like appointment for that day if theres any availability. [phone] documented in this encounter Plan of Treatment Upcoming Encounters Date Type Department Care Team ([facility] st Contact Info) Description 10/04/2024 10:15 AM EDT Office Visit [facility] MED & PEDS [address] [place] [address] Ian Jauregui MD [address] [place] [address] documented as of this encounter Visit Diagnoses Not on filedocumented in this encounter Additional Health Concerns Assessment Noted Time PHQ-9 Depression Total Score: 0 07/08/20 9:15 AM EST documented as of this encounter Care Teams Data Center Solutions Architect Relationship Specialty Start Date End Date Kermit Rangel MD [address] [place] [address] PCP - General Internal Medicine 07/11/24 Glenn TOTH 07/28/24 documented as of this encounter
--- OUTSIDE RECORDS SUMMARY | 2024-09-09 08:07 | XMS_ITS | Encounter Summary ---
Author Organization [employer] Address [address] [facility] [address] [place] [address] Care Team Providers Care Shirt Closer Name Role Phone Kermit Rangel MD Primary Care Prov ider Reason for Visit * Reason Comments Pre-op Exam Encounter Details Date Type Department Care Team ([facility] Contact Info) Description 09/08/2024 2:15 PM EST Office Visit [facility] MED & PEDS [address] [place] [address] Aletha Waldrop MD [address] [place] [address] Social History Tobacco Use Types Packs/Day Years [...] AM EDT documented as of this encounter Last Filed Vital Signs Vital Sign Reading Time Taken Comments Blood Pressure 134/90 09/08/2024 1:52 PM EST Pulse 56 09/08/2024 1:52 PM EST Temperature 36.1 ??C (96.9 ??F) 09/08/2024 1:52 PM ES T Respiratory Rate 14 09/08/2024 1:52 PM EST Oxygen Saturation - - Inhaled Oxygen Concentration - - Weight 85.1 kg (187 lb 9.6 oz) 09/08/2024 1:52 P M EST Height 177.8 cm (5' 10 ) 09/08/2024 1:52 PM EST Body Mass Index 26.92 09/08/2024 1:52 PM EST documented in this encounter Plan of Treatment Upcoming Encounters Date Type Department Care Team (Late st Contact Info) Description 10/04/2024 10:15 AM EDT Office Visit [facility] MED & PEDS [address] [place] [address] Ian Jauregui MD [address] [place] [address] documented as of this encounter Visit Diagnoses Not on filedocumented in this encounter Additional Health Concerns Assessment Noted Time PHQ-9 Depression Total Score: 0 07/08/20 9:15 AM EST documented as of this encounter Care Teams Shirt Closer Relationship Specialty Start Date End Date Kermit Rangel MD [address] [place] [id number] PCP - General Internal Medicine 07/11/24 Glenn TOTH 07/28/24 documented as of this encounter
--- OUTSIDE RECORDS SUMMARY | 2024-09-09 08:07 | XMS_ITS | Clinical Summary ---
Author Organization [employer] Address [address] [facility] [address] [place] [address] Care Team Providers Care Director Of Patient Safety Name Role Phone Kermit Rangel MD Primary Care Prov ider Allergies No known active allergies Medications folic acid (Folvite) 1 MG tablet Take 1 mg by mouth Once per day. Active thiamine (Vitamin B-1) 100 MG tablet Take 100 mg by mouth Once per day. Active Ascorbic Acid (vitamin C) 1000 MG tablet Take 1,000 mg by mouth Once per day. Active ferrous sulfate 325 (65 Fe) MG EC tablet Take 325 mg by mouth with breakfast. Do not crush, chew, or split. Active metoprolol succinate XL (Toprol-XL) 25 MG 24 hr tablet Take 25 mg by mouth Once per day. Do not crush or chew. Active Eliquis 5 MG tablet Take 1 tablet by mouth 2 times daily. 07/26/19 25 Active dilTIAZem CD (Cardizem CD) 120 MG 24 hr capsule Take 1 capsule by mouth Once per day. 07/26/19 25 Active digoxin (Lanoxin) 250 MCG tab;et Take 1 tablet by mouth Once per day. 07/26/19 25 Active metoprolol tartrate (Lopressor) 100 MG tablet Take 100 mg by mouth 2 times daily. 07/26/19 25 Active omeprazole OTC (PriLOSEC OTC) 20 MG EC tablet Take 1 tablet (20 mg) by mouth before breakfast. Do not crush, chew, or split. 30 tablet 3 09/08/19 25 Active Ascorbic Acid (Vitamin C) 500 MG capsule Take 1 capsule orally with iron daily 30 capsule 3 09/08/19 25 Active omeprazole OTC (PriLOSEC OTC) 20 MG EC tablet Take 20 mg by mouth before breakfast. Do not crush, chew, or split. 025 Discontinued(Re order (will not trigger notification to Pharmacy)) docusate sodium (Colace) 100 MG capsule Take 1 capsule (100 mg) by mouth if needed in the morning and at bedtime for constipatio n. 60 capsule 08/04/19 25 025 Active Problems Problem Noted Date Diagnosed Date Persistent atrial fibrillation 08/12/2024 Assessment & Plan (08/12/2024 12:39 PM EST): Patient found incidentally with afib on last hospitalization, he was discharged with eliquis, metoprolol, diltiazem and digoxin, has scheduled follow up with cardiology Other hemorrhoids 07/12/2024 Assessment & Plan (08/04/2024 12:31 PM EST): Followed by surgery, he will undergo surgery, pending scheduling Assessment & Plan (07/12/2024 10:22 AM EST): Patient had issues previously with hemorrhoids, but refers since starting discharge medications they have worsened. Will send hydrocostisone suppository, docusate and will refer to surgery for evaluation Encounter to establish care 07/08/2024 Assessment & Plan (07/08/2024 12:47 PM EST): Last pcp follow up over 40 years Er visit: May due to episode of UGI bleeding, underwent endoscopy Pmhx: - Pshx: - All:- Meds folic acid, thiamine, vitamin c, metoprolol succinate 25mg daily, ferrous sulfate, omeprazole UGI bleed 07/08/2024 Assessment & Plan (08/04/2024 12:31 PM EST): No further episode of gi bleeding, followed by gastroenterology Assessment & Plan (07/08/2024 12:50 PM EST): Patient seen by GI, underwent endoscopy, has a follow up on August 26, on omeprazole, told to avoid NSAID, no further episode of bleeding Lesion of skin of nose 07/08/2024 Assessment & Plan (08/04/2024 6:42 PM EST): Seems to be BCC, will refer to derm, appointment given for 08/09/24 Assessment & Plan (07/08/2024 1:58 PM EST): Patient was told during hospitalization of malignant appearance, will refer to dermatology for evaluation Encounters Date Type Department Care Team Description 09/08/2024 2:15 PM EST Office Visit [facility] [address] [place] [address] Aletha Waldrop MD 09/08/2024 Travel 09/06/[address] [address] Kermit Rangel MD Pre op 08/09/2024 10:45 AM EST Office Visit [facility] [address] [place] [address] Ian Jauregui MD Macular seborrheic keratosis (Primary Dx) 08/09/2024 Travel 08/04/2024 10:30 AM EST Office Visit [facility] [address] [place] [address] Kermit Rangel MD Other hemorrhoids (Primary Dx); UGI bleed; Lesion of skin of nose; Persistent atrial fibrillation (CMS/HCC) 08/04/2024 Travel 08/03/2024 Telephone [facility] [address] [place] [address] Kermit Rangel MD Chart Prep 07/29/2024 Telephone [facility] [address] [place] [address] Kermit Rangel MD Appointment Request 07/29/[address] [address] Kermit Rangel MD Appointment Request 07/20/2024 Orders Only GENERIC EXTERNAL DATA DEPARTMENT Provider, Generic External Data 07/12/2024 9:30 AM EST Office Visit [facility] [address] [place] [address] Kermit Rangel MD Iron deficiency anemia due to chronic blood loss (Primary Dx); Other hemorrhoids 07/12/2024 Travel 07/11/2024 Telephone [facility] [address] [place] [address] Kermit Rangel MD 07/08/2024 9:45 AM EST Telemedicine [facility] [address] [place] [address] Kermit Rangel MD Encounter to establish care (Primary Dx); UGI bleed; Lesion of skin of nose 07/08/2024 Travel 07/07/2024 Telephone [facility] [address] [place] [address] Jennifer Camarena MA chart prep 06/22/2024 Telephone [facility] [address] [place] [address] Chris Soto MD Appointment Request from Last 3 Months Family History Medical History Relation Name Comments No Known Problems Father No Known Problems Mother Cancer Neg Hx Relation Name Status Comments Father Mother Social History Tobacco Use Types Packs/Day Years Used Date Smoking Tobacco: Former Cigarettes 0.3 34 S tarted: 1960 Smokeless Tobacco: Never Tobacco Cessation:Counseling Given: Not Answered Alcohol Use Standard Drinks/Week Comments Yes 0 (1 standard drink = 0.6 oz pur e alcohol) beer 3-4 daily Depression Answer Date Recorded Patient Health Questionnaire-9 Score 0 07/08/2024 Patient Health Questionnaire-9 Score 0 07/08/2024 Last PHQ-9: Questionnaire Data Not on file 1 09/08/2023 Housing Stability Answer Date Recorded What is your housing situation today? I have arthurmanuel bacon 09/08/[address] you [...] not to disclose 2021 10:18 AM EDT Last Filed Vital Signs Vital Sign Reading Time Taken Comments Blood Pressure 134/90 09/08/2024 1:52 PM EST Pulse 56 09/08/2024 1:52 PM EST Temperature 36.1 ??C (96.9 ??F) 09/08/2024 1:52 PM ES T Respiratory Rate 14 09/08/2024 1:52 PM EST Oxygen Saturation 98% 08/09/2024 10:45 AM EST Inhaled Oxygen Concentration - - Weight 85.1 kg (187 lb 9.6 oz) 09/08/2024 1:52 P M EST Height 177.8 cm (5' 10 ) 09/08/2024 1:52 PM EST Body Mass Index 26.92 09/08/2024 1:52 PM EST Plan of Treatment Upcoming Encounters Date Type Department Care Team (Late st Contact Info) Description 10/04/2024 10:15 AM EDT Office Visit [facility] [address] [place] [address] Ian Jauregui MD [address] [place] [address] Health Maintenance Due Date Last Done Comments Lipid Panel 1945 Alcohol/Substance Use Screening 1956 DTaP/Tdap/Td Vaccines (1 - Tdap) 1963 Pneumococcal Vaccine: 50+ Years (1 of 1 - PCV) 1994 Zoster Vaccines (1 of 2) 1994 RSV Patients and Patients Aged 60 years or older (1 - 1-dose 75+ series) 2019 COVID-19 Vaccine (4 - 2023-2 5 season) 2024 2021, 09/27/2020, 08/31/2020 Influenza Vaccine (#1) 2024 Depression Screening 07/08/2025 07/08/2024, 07/08/2024 Tobacco Screening 07/08/2025 07/08/2024 SDOH Screening 09/08/2025 09/08/2024 HIB Vaccines Aged Out No longer eligi ble based on patient's age to complete this topic HPV Vaccines Aged Out No longer eligi ble based on patient's age to complete this topic Hepatitis A Vaccines Aged Out No long er eligible based on patient's age to complete this topic Hepatitis B Vaccines Aged Out No long er eligible based on patient's age to complete this topic IPV Vaccines Aged Out No longer eligi ble based on patient's age to complete this topic Meningococcal Vaccine Aged Out No brisa alem eligible based on patient's age to complete this topic RSV under 20 months Aged Out No longe r eligible based on patient's age to complete this topic Rotavirus Vaccines Aged Out No longer eligible based on patient's age to complete this topic Procedures Procedure Name Priority Date/Time Associated Diagnosis Comments STRESS TEST WITH MYOCARDIAL PERFUSION Routine 08/10/2024 10:06 AM EST CRYOTHERAPY SKIN LESION Routine 08/09/2024 11:04 AM EST Macular seborrheic keratosis CT HEAD WO CONTRAST Routine 07/24/2024 1 2:47 PM EST XR CHEST 1 VIEW Routine 07/24/2024 10:32 AM EST CBC WITH AUTO DIFFERENTIAL Routine 07/20/2024 2:41 PM EST TYPE AND SCREEN Routine 07/20/2024 12:00 PM EST HIGH SENSITIVITY TROPONIN I Routine 07/20/2024 11:46 AM EST MAGNESIUM Routine 07/20/2024 11:46 AM EST PROTHROMBIN TIME-INR Routine 07/20/2024 11:46 AM EST LIPASE Routine 07/20/2024 11:46 AM EST COMPREHENSIVE METABOLIC PANEL Routine 07/20/2024 11:46 AM EST CBC WITH AUTO DIFFERENTIAL Routine 07/20/2024 11:46 AM EST from Last 3 Months Results * Stress test with myocardial perfusion (08/10/2024 10:06 AM EST) 08/10/2024 10:0 6 AM EST Narrative [facility] - 08/12/2024 1:05 PM EST ? [facility] ?[address] ?[place] [address] ?Nuclear Medicine Report ? Signed ? Patient: Geovanni Nick ?MR#: [id number] ?? [id number] ? : 1945 ?Acct:[id number] ? Age/Sex: 79 / M ?ADM Date: 08/10/24 ? Loc: HO.CARD ? Attending Dr: Ros Cline VOCATIONAL PSYCHOLOGIST-C ? Ordering Physician: Ros Cline NP-C ?? Date of Service: 08/10/24 ?? Procedure(s): NM cardiolite stress test ?? Accession Number(s): [id number] ? cc: Kermit Rangel MD; Ros Cline VOCATIONAL PSYCHOLOGIST-C ? Lexiscan Myocardial perfusion study ? Indication: ?? Ventricular tachycardia ? Technique: ? The patient was brought in for a Lexiscan perfusion study on July ?? 2024 and was injected 0.4 mg of Lexiscan intravenously. Within a ?? minute of this injection 30 mCi of sestamibi was given intravenously. ?? Images were obtained using the SPECT gamma camera interlaced with the ?? gating device. Images were obtained in supine position. ? Resting perfusion study was performed on August 12, 2024. Patient was ?? administered 30 mCi of sestamibi intravenously at rest. Images were ?? then obtained in supine position. ? Images obtained without without CT attenuation. Total DLP 88 mGy-cm. ? Images were processed with the software and compared side to side in ?? short axis, horizontal long axis and vertical long axis views. ? Findings: ? Both stress as well as rest images are suboptimal due to intense ?? subdiaphragmatic gastric as well as hepatic uptake interfering with ?? inferolateral myocardial uptake ? The stress perfusion study showed ??nonattenuated images show severely ?? to absent uptake in the basal inferior wall of the LV myocardium and ?? mildly reduced uptake in the mid and apical portion all inferior wall ?? as moderately reduced uptake in the basal inferolateral wall of the LV ?? myocardium. Attenuated corrected images appear to be show moderate to ?? severely reduced uptake in the basal inferior wall with improved uptake ?? in the inferior wall of the LV myocardium.. The gated study shows ?? reduced LV systolic function with calculated LVEF of 31%, although ?? visually images have been ejection fraction appeared to be normal. LV ?? cavity is markedly dilated in size. The gated study shows reduced ??wall ?? thickening and contraction of basal inferior segments. ?? Resting study shows nonattenuated images show no change in perfusion ?? pattern compared to stress perfusion study.. Gating at rest was not ?? performed due to atrial fibrillation. ? The findings are consistent with fixed basal inferior defect suggestive ?? myocardial infarction with no clear reversible defect suggestive of ?? ischemia. ? NM/NM cardiolite stress test ?? Impression: ? 1. ??Myocardial perfusion imaging study shows infarcted basal inferior ?? wall without any clear evidence of ischemia ?? 2. ??Gated LVEF is 31% at stress although visually appears to be higher ?? 3. Transient ischemic dilatation not present ? Nondiagnostic changes on EKG. ? Electronically signed by: ??Enrique Yi MD ??08/12/2024 01:03 PM EST RP ? Dictated By: ?Enrique Yi MD ? Signed By: ?<Electronically signed by Enrique Yi MD in OV> ?08/12/24 1303 ? DD/ 1006 ? TD/TT: 08/12/24 0815 ? Trade Mark Examiner: ? Procedure Note Donotuseinterpreter, Image - 08/12/[address] [address] Nuclear Medicine Report Signed Patient: Geovanni Nick LMR#: [id number] : 4Acct:[id number] Age/Sex: 79 / MADM Date: 08/10/24 Loc: [facility] Attending Dr: Ros FONTAINE Ordering Physician: Ros Cline Date of Service: 08/10/24 Procedure(s): NM cardiolite stress test Accession Number(s): [id number] cc: Kermit Rangel MD; Ros Cline Lexiscan Myocardial perfusion study Indication: Ventricular tachycardia Technique: The patient was brought in for a Lexiscan perfusion study on August 10, 2024 and was injected 0.4 mg of Lexiscan intravenously. Within a minute of this injection 30 mCi of sestamibi was given intravenously. Images were obtained using the SPECT gamma camera interlaced with the gating device. Images were obtained in supine position. Resting perfusion study was performed on August 12, 2024. Patient was administered 30 mCi of sestamibi intravenously at rest. Images were then obtained in supine position. Images obtained without without CT attenuation. Total DLP 88 mGy-cm. Images were processed with the software and compared side to side in short axis, horizontal long axis and vertical long axis views. Findings: Both stress as well as rest images are suboptimal due to intense subdiaphragmatic gastric as well as hepatic uptake interfering with inferolateral myocardial uptake The stress perfusion study showed nonattenuated images show severely to absent uptake in the basal inferior wall of the LV myocardium and mildly reduced uptake in the mid and apical portion all inferior wall as moderately reduced uptake in the basal inferolateral wall of the LV myocardium. Attenuated corrected images appear to be show moderate to severely reduced uptake in the basal inferior wall with improved uptake in the inferior wall of the LV myocardium.. The gated study shows reduced LV systolic function with calculated LVEF of 31%, although visually images have been ejection fraction appeared to be normal. LV cavity is markedly dilated in size. The gated study shows reduced wall thickening and contraction of basal inferior segments. Resting study shows nonattenuated images show no change in perfusion pattern compared to stress perfusion study.. Gating at rest was not performed due to atrial fibrillation. The findings are consistent with fixed basal inferior defect suggestive myocardial infarction with no clear reversible defect suggestive of ischemia. NM/NM cardiolite stress test Impression: 1. Myocardial perfusion imaging study shows infarcted basal inferior wall without any clear evidence of ischemia 2. Gated LVEF is 31% at stress although visually appears to be higher 3. Transient ischemic dilatation not present Nondiagnostic changes on EKG. Electronically signed by: Enrique Yi MD 08/12/2024 01:03 PM EST RP Dictated By: Enrique Yi MD Signed By: <Electronically signed by Enrique Yi MD in OV> 08/12/24 1303 DD/ 1006 TD/TT: 08/12/24 0815 Trade Mark Examiner: [facility] External Provider CV STRE SS PROCEDURES Final Result Performing Organization Address City/State/[facility] Co de Phone Number [facility] [address] [place] [phone] * Cryotherapy, skin lesion (08/09/2024 11:04 AM EST) Ian Damon MD - 08/09/2024 11:04 AM EST Ian Jauregui MD ? 08/09/2024 12:48 PM Cryotherapy, skin lesion Date/Time: 08/09/2024 11:04 AM Performed by: Ian Jauregui MD Authorized by: Ian Jauregui MD ?? Consent: ??Consent obtained: ??Written ??Procedure risks and benefits discussed: Yes ?Patient questions answered: No ?Patient agrees, verbalizes understanding, and wants to proceed: No ?Educational handouts given: No ?Instructions and paperwork completed: Yes ?? Trimble protocol: ??Procedure explained and questions answered to patient or proxy's satisfaction: yes ?Relevant documents present and verified: no ?Test results available: no ?Imaging studies available: no ?Required blood products, implants, devices, and special equipment available: no ?Site/side marked: yes ?Patient identity confirmed: ??Verbally with patient Sedation: ??Sedation type: ??None Anesthesia: ??Anesthesia method: ??None Procedure specific details: ?? Treated w/ Cryotherapy as per protocole Post-procedure details: ??Procedure completion: ??Tolerated well, no immediate complications us Ian DEVINE PROCEDURE ORDERABLES F inal Result * CT Head w/o Contrast (07/24/2024 12:47 PM EST) Anatomical Region Laterality Modality Head, Neck Computed Tomogra phy 07/24/2024 12:4 7 PM EST Narrative 07/24/2024 12:49 PM EST ? [facility] ?[address] ?[place] [address] ? CT Scan Report ? Signed ? Patient: Geovanni Nick L ?MR#: [id number] ?? [id number] ? : 1945 ?Acct:[id number] ? Age/Sex: 79 / M ?ADM Date: 07/20/24 ? Loc: HO.IMC ?486-1 ? Attending Dr: Najma Israel VOCATIONAL PSYCHOLOGIST ? Ordering Physician: Najma Israel NP ?? Date of Service: 07/24/24 ?? Procedure(s): CT head/brain wo IV con ?? Accession Number(s): [id number] ? cc: Kermit Rangel MD; Najma Israel NP ? Report Number: ?? [id number]: Total DLP = ??670.00 mGy-cm ? CLINICAL HISTORY: dizziness ? CT of the head without intravenous contrast ? Comparison: CT/SR - CT HEAD/BRAIN WO IV CON - 06/17/24 10:57 EST ? Findings: ?? The ventricles and sulci are prominent, consistent with generalized ?? cerebral parenchymal volume loss. The ventricles are symmetric and the ?? basilar cisterns are intact. Mild periventricular, deep and subcortical ?? white matter hypodensities are nonspecific but statistically reflect the ?? 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 No intracranial hemorrhage, extra-axial fluid collection, ?? midline shift or mass-effect is evident. No evidence of acute large vessel ?? or territorial ischemia. Brainstem and cerebellum unremarkable. Vascular ?? calcifications indicate intracranial atherosclerosis. ? The imaged portion of the paranasal sinuses are clear. No mastoid ?? effusions are demonstrated. The orbital contents are unremarkable. ? Calvarium is intact. ? Impression: ?? 1. No CT evidence of acute intracranial abnormality. ?? 2. Cerebral volume loss, intracranial atherosclerotic disease and mild ?? sequela of chronic small vessel ischemic disease. ? This document has been electronically signed by: Lasha Burns MD on ?? 07/24/2024 12:47:42 ? Dictated By: ?Lasha Burns MD ? Signed By: ?<Electronically signed by Lasha Burns MD in OV> ?07/24/24 1248 ? DD/ 1247 ? TD/TT: 07/24/24 1247 ? Trade Mark Examiner: ? Procedure Note Viry, Maryellen - 07/24/[address] [address] [address] Scan Report Signed Patient: Geovanni Nick LMR#: [id number] : 4Acct:[id number] Age/Sex: 79 / MADM Date: 07/20/24 Loc: [facility] 486-[address]: Najma Israel NP Ordering Physician: Najma Israel NP Date of Service: 07/24/24 Procedure(s): CT head/brain wo IV con Accession Number(s): [id number] cc: Kermit Rangel MD; Najma Israel NP Report Number: [id number]: Total DLP = 670.00 mGy-cm CLINICAL HISTORY: dizziness CT of the head without intravenous contrast Comparison: CT/SR - CT HEAD/BRAIN WO IV CON - 06/17/24 10:57 EST Findings: The ventricles and sulci are prominent, consistent with generalized cerebral parenchymal volume loss. The ventricles are symmetric and the basilar cisterns are intact. Mild periventricular, deep and subcortical white matter hypodensities are nonspecific but statistically reflect the sequela of chronic small vessel ischemic change.Remote left basal ganglia lacunar infarct. No intracranial hemorrhage, extra-axial fluid collection, midline shift or mass-effect is evident. No evidence of acute large vessel or territorial ischemia. Brainstem and cerebellum unremarkable. Vascular calcifications indicate intracranial atherosclerosis. The imaged portion of the paranasal sinuses are clear. No mastoid effusions are demonstrated. The orbital contents are unremarkable. Calvarium is intact. Impression: 1. No CT evidence of acute intracranial abnormality. 2. Cerebral volume loss, intracranial atherosclerotic disease and mild sequela of chronic small vessel ischemic disease. This document has been electronically signed by: Lasha Burns MD on 07/24/2024 12:47:42 Dictated By: Lasha Burns MD Signed By: <Electronically signed by Lasha Burns MD in OV> 07/24/24 1248 DD/ 1247 TD/TT: 07/24/24 1247 Trade Mark Examiner: [facility] External Provider IMG CT PROCEDURES Edited Result - Final * XR Chest 1 View (07/24/2024 10:32 AM EST) Anatomical Region Laterality Modality Chest Radiographic Lizeth ging 07/24/2024 10:3 2 AM EST Narrative 07/24/2024 10:33 AM EST ? [facility] ?[address] ?[place] [address] ?XRay Report ? Signed ? Patient: Sandoval,Geovanni L ?MR#: [id number] ?? [id number] ? : 1945 ?Acct:[id number] ? Age/Sex: 79 / M ?ADM Date: 07/20/24 ? Loc: HO.IMC ?486-1 ? Attending Dr: Najma Israel VOCATIONAL PSYCHOLOGIST ? Ordering Physician: Najma Israel NP ?? Date of Service: 07/24/24 ?? Procedure(s): XR chest 1V ?? Accession Number(s): [id number] ? cc: Kermit Rangel MD; Najma Israel NP ? CLINICAL HISTORY: sob ? 1 view chest x-ray. ? Comparison: None ? Findings: ?? Low lung volumes. ?? Mild pleural-parenchymal disease right lower lobe. Mild atelectasis or ?? infiltrate right mid lung. Bilateral interstitial and bronchial wall ?? thickening. ?? No pneumothorax. ?? Mild cardiomegaly. ?? No midline shift or tracheal deviation. ?? No acute fracture. ? Impression: ?? 1. Mild pleural-parenchymal disease right lower lobe, Right mid lobe lung ?? atelectasis and or infiltrate and bilateral interstitial and bronchial ?? wall thickening either cardiogenic or pneumonic. ? This document has been electronically signed by: Lasha Burns MD on ?? 07/24/2024 10:32:00 ? Dictated By: ?Lasha Burns MD ? Signed By: ?<Electronically signed by Lasha Burns MD in OV> ?07/24/241031 ? DD/ 1032 ? TD/TT: 07/24/24 1032 ? Trade Mark Examiner: ? Procedure Note Donberandine, Image - 07/24/[address] [address] XRay Report Signed Patient: Geovanni Nick LMR#: [id number] : 1945cct:[id number] Age/Sex: 79 / MADM Date: 07/20/24 Loc: [facility] 486-[address]: Najma Israel NP Ordering Physician: Najma Israel NP Date of Service: 07/24/24 Procedure(s): XR chest 1V Accession Number(s): [id number] cc: Kermit Rangel MD; Najma Israel NP CLINICAL HISTORY: sob 1 view chest x-ray. Comparison: None Findings: Low lung volumes. Mild pleural-parenchymal disease right lower lobe. Mild atelectasis or infiltrate right mid lung. Bilateral interstitial and bronchial wall thickening. No pneumothorax. Mild cardiomegaly. No midline shift or tracheal deviation. No acute fracture. Impression: 1. Mild pleural-parenchymal disease right lower lobe, Right mid lobe lung atelectasis and or infiltrate and bilateral interstitial and bronchial wall thickening either cardiogenic or pneumonic. This document has been electronically signed by: Lasha Burns MD on 07/24/2024 10:32:00 Dictated By: Lasha Burns MD Signed By: <Electronically signed by Lasha Burns MD in OV> 07/24/24 1032 DD/ 1032 TD/TT: 07/24/24 1032 Trade Mark Examiner: [facility] External Provider IMG XR PROCEDURES Edited Result - Final * (ABNORMAL) CBC auto differential (07/20/2024 2:41 PM EST) Only the most recent of2 resultswithin the time period is included. White Blood Count 5.8 4.8 - 10.8 X10*3/uL [facility] Red Blood Count 3.76(L) 4.60 - 5.80 X10*6/uL [facility] Hemoglobin 11.3(L) 14.0 - 18.0 g/dl [facility] Hematocrit 35.2(L) 42.0 - 52.0 % [facility] [facility] Mean Corpuscular Volume 93.6 80.0 - 98.0 fL [facility] Mean Corpuscular Hemoglobin 30.1 27.0 - 33.0 pg [facility] Mean Corpuscular HGB Conc 32.1 31.0 - 36.0 g/dl [facility] Red Cell Distribution Width 13.8 11.0 - 16.0 % [facility] Platelet Count 126(L) 160 - 400 X10*3/uL [facility] Mean Platelet Volume 11.7 9.4 - 12.4 fL [facility] Neutrophils Percent Auto 72.5 45 - 73 % [facility] Imm Gran Pct Auto 0.3 0.0 - 0.4 % [facility] Lymphocytes Percent Auto 19.8(L) 20 - 40 % [facility] Monocytes Percent Auto 6.0 2 - 11 % [facility] Eosinophils Percent Auto 0.7 0 - 4 % [facility] Basophils Percent Auto 0.7 0 - 2 % [facility] NRBC Pct Auto 0.0 0.0 - 0.2 /100WBC [facility] Neutrophils Absolute Auto 4.2 2.0 - 8.3 x10*3/uL [facility] Imm Gran Abs Auto 0.02 0.00 - 0.03 X10*3/uL [facility] Lymphocytes Absolute Auto 1.2 1.2 - 4.9 X10*3/uL [facility] Monocytes Absolute Auto 0.4 0.1 - 1.2 X10*3/uL [facility] Eosinophils Absolute Auto 0.0 0.0 - 0.4 X10*3/uL [facility] Basophils Absolute Auto 0.0 0.0 - 0.2 X10*3/uL [facility] NRBC Abs Auto 0.000 0.0 - 0.012 X10*3/uL [facility] 07/20/2024 2:41 PM EST 07/20/2024 2:44 PM EST us Generic External Data Provider LAB BLOOD ORDERAB LES Final Result Performing Organization Address City/[facility]/ZIP Co de Phone Number [facility] [address] [place] [phone] * Type and screen (07/20/2024 12:00 PM EST) Blood Type AP [facility] Antibody Screen NEGATIVE [facility] 07/20/2024 12:0 0 PM EST 07/20/2024 12:04 PM EST Generic External Data Provider LAB BLOOD BANK TE ST ORDERABLES Final Result Performing Organization Address [facility]/ZIP Co de Phone Number [facility] [address] [place] [phone] * High Sensitivity Troponin I (07/20/2024 11:46 AM EST) TROPONIN I HIGH SENSITIVITY 6.0 <3.5 - 35.0 ng/L [facility] Comment:The Han high sens itivity Troponin-I results should beused in conjunction with other diagnostic information suchas ECG, clinical observations and information, and patientsymptoms to aid in the diagnosis of [place]. 07/20/2024 11:4 6 AM EST 07/20/2024 3:28 PM EST us Generic External Data Provider LAB BLOOD ORDERAB LES Final Result Performing Organization Address [facility] Co de Phone Number [facility] [address] [place] [phone] * (ABNORMAL) Prothrombin Time-INR (07/20/2024 11:46 AM EST) Prothrombin Time 13.8(H) 10.9 - 12.4 SEC [facility] INTERNATIONAL NORM RATIO 1.2(H) 0.9 - 1.1 [facility] Comment:INTERNATIONAL NORMAL IZED RATIO (INR) REFERENCE RANGES Reference RangeFor patients not on anticoagulant therapy: 0.9 - 1.1INR ranges for oral anticoagulanttherapy:For prevention and treatment of venous thrombosis and pulmonary embolism: 2.0 - 3.0For acute myocardial infarction with aspirin therapy: 2.0 - 3.0For acute myocardial infarction without aspirin therapy: 3.0 - 4.0For patients with mechanical prosthetic heart valves: 2.5 - 3.5 07/20/2024 11:4 6 AM EST 07/20/2024 12:02 PM EST us Generic External Data Provider LAB BLOOD ORDERAB LES Final Result Performing Organization Address [facility] Co de Phone Number [facility] [address] [place] [phone] * Magnesium (07/20/2024 11:46 AM EST) Magnesium 2.1 1.6 - 2.6 mg/dL [facility] 07/20/2024 11:4 6 AM EST 07/20/2024 12:02 PM EST Generic External Data Provider LAB BLOOD ORDERAB LES Final Result Performing Organization Address [facility] Co de Phone Number [facility] [address] [place] [phone] * Lipase (07/20/2024 11:46 AM EST) Lipase 35 8 - 78 U/L [facility] 07/20/2024 11:4 6 AM EST 07/20/2024 12:02 PM EST us Generic External Data Provider LAB BLOOD ORDERAB LES Final Result [facility] [address] [place] [phone] * (ABNORMAL) Comprehensive Metabolic Panel (07/20/2024 11:46 AM EST) Sodium 143 135 - 145 mmol/L [facility] Potassium 3.7 3.3 - 5.1 mmol/L [facility] Chloride 111(H) 96 - 108 mmol/L [facility] Carbon Dioxide 25 22 - 29 mmol/L [facility] Anion Gap 11(L) 12 - 20 [facility] Urea Nitrogen (BUN) 10 9 - 16 mg/dL [facility] Creatinine, Serum 1.07 0.5 - 1.4 mg/dL [facility] Creatinine Clr Calc Pharmacy 58.6 [facility] Comment:eGFR (calculated fro m the MDRD study equation) and eCrCl(calculated from the Cockcroft-Gault equation) are based ondifferent parameters and may not yield comparable results.If eCrCl result is absurd, please check patient'sheight/weight. Estimated Glomerular Filt Rate >60 [facility] Comment:Chronic Kidney Disea se: Estimated GFR < 60 mL/min/1.06s7Sftkxt Kidney Disease: Estimated GFR < 15 mL/min/1.73m2 Glucose 101 60 - 115 mg/dL [facility] Calcium 7.7(L) 8.4 - 10.2 mg/dL [facility] Bilirubin, Total 0.6 0.0 - 1.0 mg/dL [facility] Aspartate Amino Transferase 17 5 - 37 U/L [facility] Alanine Aminotransferase 13 0 - 40 U/L [facility] Total Protein 5.7(L) 6.5 - 8.0 g/dL [facility] Albumin Level 3.2(L) 3.5 - 5.0 g/dL [facility] Alkaline Phosphatase 86 39 - 117 U/L [facility] 07/20/2024 11:4 6 AM EST 07/20/2024 12:02 PM EST us Generic External Data Provider LAB BLOOD ORDERAB LES Final Result Performing Organization Address City/State/[facility] Co de Phone Number [facility] [address] [place] [phone] from Last 3 Months Insurance [facility] [place] [id number] Care Teams Director Of Patient Safety Relationship Specialty Start Date End Date ArizaKermit Petersen MD [address] [place] [address] [place] [phone] PCP - General Internal Medicine 07/11/24 Glenn TOTH 07/28/24
--- OUTSIDE RECORDS SUMMARY | 2024-09-09 08:07 | XMS_ITS | Encounter Summary ---
Author Organization [employer] Address [address] [place] [address] Care Team Providers Care Seafood Service Team Member Name Role Phone Kermit Rangel MD Primary Care Prov ider Reason for Visit * Reason Onset Date Comments Pre op 09/06/2024 Encounter Details Date Type Department Care Team ([facility] st Contact Info) Description 09/06/2024 Telephone [facility] [address] [place] [address] Kermit Rangel MD [address] [place], [place] [phone] Pre op Social History Tobacco Use Types Packs/Day Years [...] encounter Miscellaneous Notes * Telephone Encounter - Chapin Flowers - 09/07/2024 11:58 AM EST TC placed to pt , agreed to come in for pre-op on 09/[address] Waldrop VM left to facility with details . * Telephone Encounter - Rajat Torres - 09/06/2024 2:49 PM EST Date of Surgery: 09/23/24 Surgical procedure being done: Cataract for Right Eye Type of anesthesia: Regular Sedation Lab needed: No EKG: Yes Surgeon's name: Pato Chua Facility name: [facility] Surgeon's office number: [phone] Surgeon's office fax number: [phone] Contact name (person you spoke with): Aishwarya Last office note from surgeon requested: No Contact Aishwarya at [phone] Est 368 Send Message to Shyla Witt and Chapin Flowers documented in this encounter Plan of Treatment Upcoming Encounters Date Type Department Care Team ([facility] st Contact Info) Description 10/04/2024 10:15 AM EDT Office Visit [facility] [address] [place] [address] Ian Jauregui MD [address] [place] [address] documented as of this encounter Visit Diagnoses Not on filedocumented in this encounter Additional Health Concerns Assessment Noted Time PHQ-9 Depression Total Score: 0 07/08/20 9:15 AM EST documented as of this encounter Care Teams Seafood Service Team Member Relationship Specialty Start Date End Date Kermit Rangel MD [address] [place] [address] PCP - General Internal Medicine 07/11/24 Glenn TOTH 07/28/24 documented as of this encounter
--- OUTSIDE RECORDS SUMMARY | 2024-09-09 08:07 | XMS_ITS ---
Author Organization [facility] Address [address] [place] [address] Care Team Providers Care Instructional Media Services Technician Name Role Phone Cam acosta, [place] Primary Care Prov ider Unavailable Jero Hsieh, Randolph Unavailable [phone] REASON FOR VISIT acute gastric ulcer w/ hemorrh Encounters Encounter Location Date Provider Diagnosis [facility] Outpatient [address] [place] [phone] 08/26/2024 Randolph Nogueira Jr PLAN OF TREATMENT Next Appt Details Provider Name:Randolph wilkerson Jr, 10/14/2024 08:20:00 AM, [address] [place] [address], [phone],
--- OUTSIDE RECORDS SUMMARY | 2024-09-09 08:08 | XMS_ITS ---
Author Organization [facility] Address [address] [place] [address] Care Team Providers Care Blasting Entry Specialist Name Role Phone Cam acosta, [place] Primary Care Prov ider Unavailable Jero Hsieh, Randolph Unavailable [phone] REASON FOR VISIT FYI Encounters Encounter Location Date Provider Diagnosis [facility] [address] [place] [address] 08/31/2024 Randolph Nogueira Jr PLAN OF TREATMENT Next Appt Details Provider Name:Randolph wilkerson Jr, 10/14/2024 08:20:00 AM, [address] [place] [address] , [place], [place], [phone],
--- NOTE | 2024-09-09 08:11 | MHC.OFFVIS ---
Vital Signs 09/09/24 08:12 Height 5 ft 11 in Weight 189 lb 9.561 oz BMI 26.4 BP 98/58 L Blood Pressure Location Lt brachial Position Sitting Pulse 61 Pulse Source Monitor Intake Visit Reasons: fu echo / stress clear [place]/hemorrhoidectomy Business Objects Analyst Required: No Allergies No Known Allergies Allergy (Verified 09/09/24 08:14) Medication List - Last Reconciled 09/09/24 by MINAL Au acetaminophen 650 mg PO Q6H PRN apixaban (Eliquis) 5 mg PO BID compr.stocking,knee,long,small (T.E.D. Knee [facility]) As directed digoxin 0.25 mg See Protocol PO DAILY diltiazem HCl CD 120 mg PO DAILY docusate sodium 100 mg PO DAILY ferrous sulfate 325 mg DAILY folic acid 1 mg PO DAILY metoprolol tartrate 100 mg See Protocol PO Q12H omeprazole 40 mg PO BID@0630,1630 thiamine mononitrate (vit B1) 100 mg PO DAILY HPI HPI fu echo / stress clear [place]/hemorrhoidectomy: Details: Geovanni is an 79-year-old male with past medical history of daily alcohol use, knee arthritis with use of NSAIDs who was admitted to [facility] early June with upper GI bleed. Endoscopy showed gastric ulcer. He was put on PPI and transfused. During that admission he was noted to have NSVT runs and was seen by Cardiology. He was started on metoprolol. An echocardiogram showed normal EF. He was readmitted a month later with weakness and rectal bleeding. He was found to have hemorrhoids and was seen by surgery with plan for outpatient follow-up. He was noted to have new onset atrial fibrillation and was treated with heart rate control. He was started on Eliquis for anticoagulation and his H&H remained stable. He now presents for preop clearance for upper and lower endoscopy also hemorrhoidectomy. Today he reports he has been feeling well with no concerning symptoms. He denies any heart palpitations, shortness of breath, chest discomfort at rest or with activity. No PND, orthopnea or edema. No lightheadedness, presyncope, syncope, falls. He says his hemorrhoids bleed at times. He says he is active throughout the day normal ADLs and housework. He has been taking his medications as directed. He has no cardiac questions or concerns. Daughter is present on the cell phone during this visit. [facility] Medical History Atrial fibrillation with RVR Orthostasis Upper gastrointestinal bleed NSVT (nonsustained ventricular tachycardia) Iron deficiency anemia Gastric ulcer Surgical History Hemorrhoids reducible with difficulty Social History Household Members: None Housing: Apartment Do you presently have visiting nurse or other home services: No Alcohol intake: former Patient Tobacco Use Status: Never used Tobacco service: No Review of Systems Const All systems reviewed & are unremarkable except as noted in HPI and below ENT Denies dizziness Card Denies chest pain, Denies chest pain at rest, Denies chest pain with activity, Denies rapid heart rate, Denies pedal edema, Denies edema, Denies leg edema, Denies lightheadedness, Denies palpitations, Denies dyspnea, Denies dyspnea on exertion and Denies orthopnea Resp Denies cough, Denies dyspnea and Denies dyspnea on exertion GI Denies hematochezia and Denies change in stool character Musc Denies abnormal gait, Denies limited range of motion, Denies muscle cramps, Denies muscle weakness, Denies numbness, Denies radiating pain into limb, Denies stiffness and Denies tingling Neuro Denies abnormal gait, Denies dizziness, Denies numbness and Denies tingling Endo Denies palpitations Physical Exam Vital Signs: Last Vital Signs Pulse 61 09/09/24 08:12 BP 98/58 L 09/09/24 08:12 BMI result Body Mass Index 26.4 Const General: cooperative, healthy appearing, comfortable and no acute distress Orientation/consciousness: patient oriented x3 Neck Neck: Yes normal visual inspection and Yes no JVD Resp Effort & Inspection: normal respiratory effort Auscultation: clear to auscultation bilaterally, no crackles, no rales, no rhonchi and no wheezes Cardio Rate: regular rate Rhythm: abnormal rhythm Heart sounds: S1 normal heart sound present, S2 normal heart sound present, no murmurs and no rubs Neuro General: patient oriented x3 Extrem General: Yes normal to inspection, No no pedal edema and No calf tenderness Psych Appearance: grossly normal Mental Status: mental status grossly normal Speech and movement: Normal speech and movement present Office Procedures EKG Details: Today, read by me, afib with PVCs, cant exclude prior anterior infarct, rate 61, QTc 370ms [id number], Complete Assessment & Plan Assessment & Plan (1) Atrial fibrillation: Code(s): I48.91 - Unspecified atrial fibrillation Category: Medical Plan: New finding of atrial fibrillation when he presented to [facility] 07/20/2023 with weakness and rectal bleeding. He was treated for heart rate control and started on Eliquis for anticoagulation. Chads Vasc score of 2. He has been monitored closely due to his recent gastric ulcer and finding of hemorrhoidal bleeding. Echocardiogram 06/20/2024 showed EF 55-60%, basal inferior hypokinetic, mild pulmonary hypertension, left atrium severely dilated, right atrium likely dilated. A Holter monitor done 08/10/2024 for 3 days shows AFib, rate 69, pauses noted ranging 2.5-4 seconds. Nuclear stress test 08/10/2024 shows infarcted basal inferior wall without clear evidence of ischemia. On exam today he does not appear fluid overloaded. He says he has had some hemorrhoidal bleeding. EKG from today shows AFib, rate 61. Will have him check labs including CBC, digoxin level, lipids. At this time will continue to treat with heart rate control. He has upcoming surgical procedures planned in which anticoagulation will need to be held. At follow-up visit possible cardioversion can be discussed. Cardiology follow-up 3 months, sooner if needed. (2) Abnormal stress test: Code(s): R94.39 - Abnormal result of other cardiovascular function study Category: Medical Plan: Nuclear stress test is showing infarcted basal inferior wall. His echocardiogram also shows a wall motion abnormality in that region. He denies any known history of CAD or prior NC and is currently asymptomatic. Will continue with med management. He he is not on aspirin as he is on Eliquis. He is on metoprolol. I am checking lipids and plan to start statin therapy. Signs and symptoms of angina reviewed with him. History of probable NC discussed. (3) NSVT (nonsustained ventricular tachycardia): Code(s): I47.29 - Other ventricular tachycardia Category: Medical Plan: During June admission he was noted to have NSVT episode on tele monitoring. He was started on metoprolol. An echocardiogram showed normal EF. He has been feeling well with no concerning symptoms. Will check a nuclear stress test to assess for ischemia. (4) Preop cardiovascular exam: Code(s): Z01.810 - Encounter for preprocedural cardiovascular examination Category: Medical Plan: Preop for upper and lower endoscopy on 10/14/2024. Also future plan for hemorrhoidectomy, date unknown. Patient is an intermediate cardiac risk. Eliquis needs to be held 2-3 days prior to his procedures and restarted as soon as cleared by surgeon to do so. Continue rate slowing agents for his atrial fibrillation. Call/consult Cardiology if needed. Plan Time spent on chart review, documentation, interview and assessment Orders: Orders Lipid Panel Today R94.39 - Abnormal result of other cardiovascular function study Coding Level of Care Code Est Pt Level 4 (11664) Complex EM visit Add On G2211 Diagnoses Atrial fibrillation I48.91 Abnormal stress test R94.39 NSVT (nonsustained ventricular tachycardia) I47.29 Preop cardiovascular exam Z01.810 CPT Codes EKG - CPT: 78370-[id number], Complete ([id number]) Time Spent (min) 28
[2024-09-09 08:12] VITALS: BP 98/58; PULSE 61; BMI 26.4
== END 2024-09-09 08:54 | disposition home or self-care (01) ==
PROVIDERS: PCP Internal Medicine; Visit Provider Nurse Practitioner Family
DX: I48.91 Unspecified atrial fibrillation (principal); R94.39 Abnormal result of other cardiovascular function study; I47.29 Other ventricular tachycardia; Z01.810 Encounter for preprocedural cardiovascular examination
CPT/HCPCS: 93010; 99214; G2211

== ENCOUNTER → 2024-09-09 08:03 | Outpatient (BNVA) | payer MEDICARE, OTHER, SELFPAY | PROVIDERS: PCP Internal Medicine; Visit Provider Nurse Practitioner Family | DX: Z01.810 Encounter for preprocedural cardiovascular examination (principal); I48.91 Unspecified atrial fibrillation; I47.29 Other ventricular tachycardia; R94.39 Abnormal result of other cardiovascular function study; R94.31 Abnormal electrocardiogram [ECG] [EKG] | CPT/HCPCS: 93005; 99212 ==

== ENCOUNTER 2024-09-13 07:11 | Outpatient (REF) | payer MEDICARE, OTHER, SELFPAY ==
--- OUTSIDE RECORDS SUMMARY | 2024-09-13 07:14 | XMS_ITS ---
Author Organization [facility] Address [address] [place] [address] Care Team Providers Care Asw/Asuw Tactical Air Controller Name Role Phone Cam acosta, Kermit Primary [...] Active Encounters Encounter Location Date Provider Diagnosis [facility] [address] [place] [address] 08/19/2024 Randolph Nogueira Jr PLAN OF TREATMENT Next Appt Details Provider Name:Randolph wilkerson Jr, 10/14/2024 08:20:00 AM, [address] [place] [address] , [place], [place], [phone],
--- OUTSIDE RECORDS SUMMARY | 2024-09-13 07:14 | XMS_ITS | Encounter Summary ---
Author Organization [employer] Address [address] [place] [address] Care Team Providers Care Reporting Consultant Name Role Phone Kermit Rangel MD Primary [...] 10:15 AM EDT Office Visit [facility] [address] [place] [address] Ian Jauregui MD [address] [place] [address] documented as of this encounter Visit Diagnoses Not on filedocumented in this encounter Additional Health Concerns Assessment Noted Time PHQ-9 Depression Total Score: 0 07/08/20 9:15 AM EST documented as of this encounter Care Teams Reporting Consultant Relationship Specialty Start Date End Date Kermit Rangel MD [address] [place] [address] PCP - General Internal Medicine 07/11/24 Glenn TOTH 07/28/24 documented as of this encounter
--- OUTSIDE RECORDS SUMMARY | 2024-09-13 07:14 | XMS_ITS | Patient Health Record ---
Author Organization [facility] Address [address] [place] [address] Care Team Providers Care Athletics Teacher Name Role Phone Cam acosta, Kermit Primary Care Prov idetony Nogueira Jr, Randolph Unavailable ALLERGIES No Known Allergies RESULTS Component Value Reference Range Notes Type and Screen Reviewed date:06/20/2024 09:16:50 AM Interpretation: Performing Lab:[facility], [address] [place] [phone] Notes/Report: Results at Issue Units as of 06/18/24 1158 ... Test View Group: Most Recent HGB HCT Results LABORATORY Date Time Test Result Flag Normal Range 06/18/24 0804 HGB 8.3 L 14.0-18.0 g/dl 06/18/24 0804 HCT 23.7 L 42.0-52.0 % Hgb 7-9 gm na No no Blood Type AP Antibody Screen NEGATIVE Red Blood Cells Reviewed date:06/20/2024 09:16:57 AM Interpretation: Performing Lab:[facility], [address] [place] [phone] Notes/Report: Red Blood Cells [id number] AP RC Red Blood Cells TRANSFUSED 06/18/24 1157 Red Blood Cells [id number] AP RC Red Blood Cells NOT AVAILABLE Pathology Reviewed date:06/24/2024 09:37:10 PM Interpretation: Performing Lab:[facility], [address] [place] [phone] Notes/Report: Complete Blood Count no Diff Reviewed date:06/20/2024 09:16:35 AM Interpretation: Performing Lab:[facility], [address] [place] [phone] Notes/Report: White Blood Count 4.6 4.8-10.8 X10*3/uL [...] Panel Reviewed date:06/20/2024 09:16:43 AM Interpretation: Performing Lab:[facility], [address] [place] [phone] Notes/Report: Sodium 138 135-145 mmol/L Potassium 3.9 [...] Diff Reviewed date:06/24/2024 09:37:45 PM Interpretation: Performing Lab:[facility], [address] [place] [phone] Notes/Report: White Blood Count 5.7 4.8-10.8 X10*3/uL [...] PROFILE Reviewed date:06/24/2024 09:36:37 PM Interpretation: Performing Lab:[facility], [address] [place] [phone] Notes/Report: Iron 31 45-160 mcg/dL Total Iron Binding Capacity 257 228-428 mcg/dL Percent Iron Saturation 12 15-50 % Unsaturated Iron Binding 226 Ferritin Reviewed date:06/24/2024 09:37:24 PM Interpretation: Performing Lab:[facility], [address] [place] [phone] Notes/Report: Ferritin 45 20-250 ng/mL Complete Blood Count Auto Di ff Reviewed date:07/05/2024 03:41:05 PM Interpretation: Performing Lab:[facility], [address] [place] [phone] Notes/Report: White Blood Count 5.7 4.8-10.8 X10*3/uL [...] PROFILE Reviewed date:07/05/2024 03:40:58 PM Interpretation: Performing Lab:[address] [phone] Notes/Report: Iron 103 45-160 mcg/dL Total Iron Binding Capacity 283 228-428 mcg/dL Percent Iron Saturation 36 15-50 % Unsaturated Iron Binding 180 Ferritin Reviewed date:07/05/2024 03:41:16 PM Interpretation: Performing Lab:[address] [phone] Notes/Report: Ferritin 27 20-250 ng/mL REASON FOR [...] Problem Colon cancer screening (Z12.11) Active confirmed [id number] Problem Acute gastric ulcer with hemorrhage (K25.0) Active confirmed [id number] VITAL SIGNS Blood pressure diastolic 00 mm Hg 06/29/2024 Height 5 ft 11 in in 06/29/2024 Blood pressure systolic 00 mm Hg 06/29/2024 Weight 182 lbs 06/29/2024 BMI 25.38 kg/m2 06/29/2024 Encounters Encounter Location Date Provider Diagnosis [facility] [address] [place] [id number] 08/26/2024 Randolph Nogueira Jr [facility] [address] [place] [phone] 06/29/2024 Randolph Nogueira Jr Acute gastric ulcer with hemorrhage K25.0 and Colon cancer screening Z12.11 [facility] [address] [place] [id number] 06/22/2024 Randolph Nogueira Jr Acute gastric ulcer with hemorrhage K25.0 [facility] [address] [place] [phone] 06/28/2024 Randolph Nogueira Jr [facility] [address] [place] [id number] 07/05/2024 Randolph Nogueira Jr [facility] [address] [place] [id number] 07/21/2024 Randolph Nogueira Jr [facility] [address] [place] [phone] 08/12/2024 Randolph Nogueira Jr [facility] [address] [place] [phone] 08/18/2024 Randolph Nogueira Jr [facility] [address] [place] [phone] 08/19/2024 Randolph Nogueira Jr [facility] [address] [place] [phone] 08/19/2024 Randolph Nogueira Jr [facility] [address] [place] [phone] 08/31/2024 Randolph Nogueira Jr ASSESSMENTS Encounter Date [...] Order Date IRON + IBC (FE) 06/29/2024 IRON + IBC (FE) 06/22/2024 FERRITIN 06/22/2024 FERRITIN 06/29/2024 CBC w/o DIFF 06/22/2024 CBC w/o DIFF 06/29/2024 Future Test Test Name Order Date UPPER GI ENDOSCOPY 06/29/2024 Next Appt Details Provider Name:Randolph wilkerson Jr, 10/14/2024 08:20:00 AM, [address] [place] [address] , [place], [place], [phone], Insurance Providers Payer Name Payer Address Payer Phone Subscriber Number Group Number Insured Name Patient Relationship to Insured Coverage Start Date Coverage End Date MEDICARE OF [place] [address] [place] [id number] [phone] [id number] ТАТЬЯНА [place] Self - patient is the insured MEDICAID OF [facility] [address] [place] [address] [phone] [id number] ТАТЬЯНА [place] Self - patient is the insured MEDICAL (GENERAL) HISTORY Medical History History ICD Code GI bleed with gastric ulcer 07/12 Surgical History Surgery Date(Month/Year) HERNIA REPAIR BILATERAL AGE 4
--- OUTSIDE RECORDS SUMMARY | 2024-09-13 07:14 | XMS_ITS ---
Author Organization [facility] Address [address] [place] [address] Care Team Providers Care Pet Counselor Name Role Phone Cam acosta, Herm[place] Primary Care Prov ider Unavailable Jero Hsieh, Randolph Saunders REASON FOR VISIT acute gastric ulcer w/ hemorrh Encounters Encounter Location Date Provider Diagnosis [facility] Out[facility] [address] [place] [id number] 08/26/2024 Randolph Nogueira Jr PLAN OF TREATMENT Next Appt Details Provider Name:Randolph wilkerson Jr, 10/14/2024 08:20:00 AM, [address] [place] [address], [phone],
--- OUTSIDE RECORDS SUMMARY | 2024-09-13 07:14 | XMS_ITS | Encounter Summary ---
Author Organization [employer] Address [address] [place] [address] Care Team Providers Care All Around Gear Machine Operator Name Role Phone Kermit Rangel MD Primary Care Prov ider Reason for Visit * Reason Onset Date Comments Pre op 09/06/2024 Encounter Details Date Type Department Care Team ([facility] st Contact Info) Description 09/06/[address] [facility] [address] [place] [address] Kermit Rangel MD [address] [place], [place] [phone] Pre op Social History Tobacco Use Types [...] Chua Facility name: [facility] Surgeon's office number: [phone] Surgeon's office fax number: [phone] Contact name (person you spoke with): Aishwarya Last office note from surgeon requested: No Contact Aishwarya at [phone] Est [phone] Send Message to Shyla Witt and Chapin Flowers documented in this encounter Plan of Treatment Upcoming Encounters Date Type Department Care Team ([facility] st Contact Info) Description 10/04/2024 10:15 AM EDT Office Visit [facility] [address] [place] [address] Ian Jauregui MD [address] [place] [address] documented as of this encounter Visit Diagnoses Not on filedocumented in this encounter Additional Health Concerns Assessment Noted Time PHQ-9 Depression Total Score: 0 07/08/20 9:15 AM EST documented as of this encounter Care Teams All Around Gear Machine Operator Relationship Specialty Start Date End Date Kermit Rangel MD [address] [place] [address] PCP - General Internal Medicine 07/11/24 Glenn TOTH 07/28/24 documented as of this encounter
--- OUTSIDE RECORDS SUMMARY | 2024-09-13 07:14 | XMS_ITS | Encounter Summary ---
Author Organization [employer] Address [address] [place] [address] Care Team Providers Care Chemical Handler Name Role Phone Kermit Rangel MD Primary Care Prov ider Reason for Visit * Reason Comments Pre-op Exam Encounter Details Date Type Department Care Team ([facility] Contact Info) Description 09/08/2024 2:15 PM EST Office Visit [facility] [address] [place], [place] [phone] Aletha Waldrop MD [address] [place] [address] Persistent atrial fibrillation (CMS/HCC) (Primary Dx); Preop examination Social History Tobacco Use Types Packs/Day Years [...] 1:52 PM EST documented in this encounter Progress Notes * Aletha Waldrop MD - 09/08/2024 2:15 PM EST Subjective Patient ID: Geovanni Nick is a 79 y.o. male who presents for Pre-op Exam. Mr. Galarza is a 79-year-old gentleman patient of Dr. Ariza here for preop eval as he is scheduled at [facility] on september 23 for cataract surgery under local anesthesia .He has cardiology f/utomorrow for chronic A-fib for which he takes Eliquis as anticoagulation as well as blood pressure medications that he takes with good compliance. He feels very well and denies any recent illness. States he is seeing his GI specialist in September as well for his upper and lower endoscopy . Review of Systems Constitutional: Negative for activity change, chills, fever and unexpected weight change. HENT: Negative for congestion. Respiratory: Negative for cough, chest tightness, shortness of breath and wheezing. Cardiovascular: Negative for chest pain, palpitations and leg swelling. Gastrointestinal: Negative for abdominal pain and blood in stool. Endocrine: Negative for polydipsia and polyuria. Genitourinary: Negative for decreased urine volume, difficulty urinating, dysuria and hematuria. Musculoskeletal: Negative for arthralgias and gait problem. Skin: Negative for color change and rash. Neurological: Negative for dizziness and headaches. Hematological: Negative for adenopathy. Psychiatric/Behavioral: Negative for dysphoric mood, hallucinations, sleep disturbance and suicidalideas. The patient is not nervous/anxious. Objective BP (!) 134/90 (BP Location: Left arm, Patient Position: Sitting, BP Cuff Size: Adult) Pulse 56 Temp 96.9 ??F (36.1 ??C) (Oral) Resp 14 Ht 5' 10 (1.778 m) Wt 187 lb 9.6 oz (85.1 kg) BMI 26.92 kg/m?? Physical Exam Vitals reviewed. Constitutional: General: He is not in acute distress. Appearance: Normal appearance. He is not ill-appearing. HENT: Head: Normocephalic. Nose: Nose normal. No congestion. Mouth/Throat: Mouth: Mucous membranes are moist. Pharynx: Oropharynx is clear. Eyes: Pupils: Pupils are equal, round, and reactive to light. Cardiovascular: Rate and Rhythm: Rhythm irregular. Heart sounds: No murmur heard. Pulmonary: Effort: Pulmonary effort is normal. No respiratory distress. Breath sounds: Normal breath sounds. No wheezing. Abdominal: Palpations: Abdomen is soft. Musculoskeletal: Cervical back: Normal range of motion. Right lower leg: No edema. Left lower leg: No edema. Neurological: Mental Status: He is alert and oriented to person, place, and time. Mental status is at baseline. Psychiatric: Mood and Affect: Mood normal. Behavior: Behavior normal. Assessment/Plan Diagnoses and all orders for this visit: Persistent atrial fibrillation (CMS/HCC) Comments: Mr. Geovanni is to follow-up with cardiology tomorrow as planned and take his medications as prescribed. He can continue all meds on day of surgery for his atrial fibrillation and hypertension. Preop examination Comments: Patient is cleared for cataract surgery under local anesthesia. Note will be faxed to eye clinic. Patient to follow-up with PCP as well as cardiology . Other orders - omeprazole OTC (PriLOSEC OTC) 20 MG EC tablet; Take 1 tablet (20 mg) by mouth before breakfast. Do not crush, chew, or split. - Ascorbic Acid (Vitamin C) 500 MG capsule; Take 1 capsule orally with iron daily documented in this encounter Plan of Treatment Upcoming Encounters Date Type Department Care Team ([facility] st Contact Info) Description 10/04/2024 10:15 AM EDT Office Visit [facility] [address] [place] [address] Ian Jauregui MD [address] [place] [address] documented as of this encounter Visit Diagnoses Diagnosis Persistent atrial fibrillation (CMS/HCC)- Primary Atrial fibrillation Preop examination Unspecified pre-operative examination documented in this encounter Additional Health Concerns Assessment Noted Time PHQ-9 Depression Total Score: 0 07/08/20 9:15 AM EST documented as of this encounter Care Teams Chemical Handler Relationship Specialty Start Date End Date Kermit Rangel MD [address] [place] [address] PCP - General Internal Medicine 07/11/24 Glenn TOTH 07/28/24 documented as of this encounter
--- OUTSIDE RECORDS SUMMARY | 2024-09-13 07:14 | XMS_ITS | Clinical Summary ---
Author Organization [employer] Address [address] [facility] 7t [place] [address] Care Team Providers Care Landscaper Name Role Phone Kermit Rangel MD Primary [...] Description 09/08/2024 2:15 PM EST Office Visit [facility] [address] [place] [address] Aletha Waldrop MD Persistent atrial fibrillation (CMS/HCC) (Primary Dx); Preop examination 09/08/2024 Travel 09/06/[address] [address] Kermit Rangel MD Pre op 08/09/2024 10:45 AM EST Office Visit [facility] [address] [place] [address] Ian Jauregui MD Macular seborrheic keratosis (Primary Dx) 08/09/2024 Travel 08/04/2024 10:30 AM EST Office Visit [facility] [address] [place] [address] Kermit Rangel MD Other hemorrhoids (Primary Dx); UGI bleed; Lesion of skin of nose; Persistent atrial fibrillation (CMS/HCC) 08/04/2024 Travel 08/03/2024 Telephone [facility] [address] [place] [address] Kermit Rangel MD Chart Prep 07/29/2024 Telephone [facility] [address] [place] [address] Kermit Rangel MD Appointment Request 07/29/[address] [address] Kermit Rangel MD Appointment Request 07/20/2024 Orders Only GENERIC EXTERNAL DATA DEPARTMENT Provider, Generic External Data 07/12/2024 9:30 AM EST Office Visit [facility] [address] [place] [address] Kermit Rangel MD Iron deficiency anemia due to chronic blood loss (Primary Dx); Other hemorrhoids 07/12/2024 Travel 07/11/2024 Telephone [facility] [address] [place] [address] Kermit Rangel MD 07/08/2024 9:45 AM EST Telemedicine [facility] [address] [place] [address] Kermit Rangel MD Encounter to establish care (Primary Dx); UGI bleed; Lesion of skin of nose 07/08/2024 Travel 07/07/2024 Telephone [facility] [address] [place] [address] Jennifer Camarena MA chart prep 06/22/2024 Telephone [facility] [address] [place] [address] Chris Soto MD Appointment Request from Last [...] your housing situation today? I have arthur sing 09/08/[address] you li [...] Description 10/04/2024 10:15 AM EDT Office Visit [facility] [address] [place] [address] Ian Jauregui MD [address] [place] [address] Health Maintenance Due Date Last Done Comments [...] EST) 08/10/2024 10:0 6 AM EST Narrative [facility] - 08/12/2024 1:05 PM EST ? [facility] ?[address] ?[place] [address] ?Nuclear Medicine Report ? Signed ? Patient: Geovanni Nick L ?MR#: [id number] ?? [id number] ? : 1945 ?Acct:[id number] ? Age/Sex: 79 / M ?ADM Date: 08/10/24 ? Loc: HO.CARD ? Attending Dr: Ros FONTAINE ? Ordering Physician: Ros Cline ?? Date of Service: 08/10/24 ?? Procedure(s): NM cardiolite stress test ?? Accession Number(s): [id number] ? cc: Kermit Rangel MD; Ros Cline ? Lexiscan Myocardial perfusion study ? Indication: [...] DD/ 1006 ? TD/TT: 08/12/24 0815 ? [employer] Generator: ? Procedure Note Donotuseinterpreter, Image - 08/12/[address] [address] Nuclear Medicine Report Signed Patient: Geovanni Nick LMR#: [id number] : 4Acct:[id number] Age/Sex: 79 / MADM Date: 08/10/24 Loc: [facility] Attending Dr: Ros FONTAINE Ordering Physician: Ros Cline Date of Service: 08/10/24 Procedure(s): NM cardiolite stress test Accession Number(s): [id number] cc: Kermti Rangel MD; Ros Cline Lexiscan Myocardial perfusion [...] 08/12/24 1303 DD/ 1006 TD/TT: 08/12/24 0815 [employer] Generator: us [facility] External Provider CV STRE SS PROCEDURES Final Result [facility] [address] [place] [address] * Cryotherapy, skin lesion (08/09/2024 11:04 AM [...] No ?Instructions and paperwork completed: Yes ?? [place] protocol: ??Procedure explained and questions answered to [...] ??Tolerated well, no immediate complications us Ian Jauregui MD DERM PROCEDURE ORDERABLES F inal Result * CT Head w/o Contrast (07/24/2024 12:47 PM EST) Anatomical Region Laterality Modality Head, Neck Computed Tomogra phy 07/24/2024 12:4 7 PM EST Narrative 07/24/2024 12:49 PM EST ? [facility] ?[address] ?[place] [address] ? CT Scan Report ? Signed ? Patient: Geovanni Nick ?MR#: [id number] ?? [id number] ? : 1945 ?Acct:[id number] ? Age/Sex: 79 / M ?ADM Date: 07/20/24 ? Loc: HO.IMC ?486-1 ? Attending Dr: Najma Israel DIRECTOR TRUST ? Ordering Physician: Najma Israel NP ?? Date of Service: 07/24/24 ?? Procedure(s): CT head/brain wo IV con ?? Accession Number(s): [id number] ? cc: Kermit Rangel MD; Najma Israel NP ? Report Number: ?? [id number]: Total DLP = ??670.00 mGy-cm ? CLINICAL [...] DD/ 1247 ? TD/TT: 07/24/24 1247 ? [employer] Generator: ? Procedure Note Maryellen Baires - 07/24/[address] [address] [address] Scan Report Signed Patient: Geovanni Nick LMR#: [id number] : 4Acct:[id number] Age/Sex: 79 / MADM Date: 07/20/24 Loc: [facility] 486-[address]: Najma Israel NP Ordering Physician: Najma Israel NP Date of Service: 07/24/24 Procedure(s): CT head/brain wo IV con Accession Number(s): [id number] cc: Kermit Rangel MD; Najma Israel NP Report Number: [id number]: Total DLP = 670.00 mGy-cm CLINICAL HISTORY: [...] 07/24/24 1248 DD/ 1247 TD/TT: 07/24/24 1247 [employer]ason [employer] Generator: [facility] External Provider IMG CT PROCEDURES Edited Result - Final * XR Chest 1 View (07/24/2024 10:32 AM EST) Anatomical Region Laterality Modality Chest Radiographic Lizeth ging 07/24/2024 10:3 2 AM EST Narrative 07/24/2024 10:33 AM EST ? [facility] ?[address] ?[place] [address] ?XRay Report ? Signed ? Patient: Sandoval,Geovanni L ?MR#: [id number] ?? [id number] ? : 1945 ?Acct:[id number] ? Age/Sex: 79 / M ?ADM Date: 07/20/24 ? Loc: HO.IMC ?486-1 ? Attending Dr: Najma Israel DIRECTOR TRUST ? Ordering Physician: Najma Israel NP ?? Date of Service: 07/24/24 ?? Procedure(s): XR chest 1V ?? Accession Number(s): [id number] ? cc: Kermit Rangel MD; Najma Israel [...] by Lasha Burns MD in OV> ?07/24/24 1032 ? DD/ 1032 ? TD/TT: 07/24/24 1032 ? [employer]ason Gear Generator: ? Procedure Note Donrosalbater, Image - 07/24/2024 [place] [address] XRay Report Signed Patient: Geovanni Nick R#: [id number] : 1945cct:[id number] Age/Sex: 79 / MADM Date: 07/20/24 Loc: [facility] 486-[address]: Najma Israel NP Ordering Physician: Najma Israel NP Date of Service: 07/24/24 Procedure(s): XR chest 1V Accession Number(s): [id number] cc: Kermit Rangel MD; Najma Israel NP [...] 07/24/24 1032 DD/ 1032 TD/TT: 07/24/24 1032 [employer]ason Gear Generator: [facility] External Provider IMG XR PROCEDURES Edited Result - Final * (ABNORMAL) CBC auto differential (07/20/2024 2:41 PM EST) Only the most recent of2 resultswithin the time period is included. White Blood Count 5.8 4.8 - 10.8 X10*3/uL [facility] Red Blood Count 3.76(L) 4.60 - 5.80 X10*6/uL [facility] Hemoglobin 11.3(L) 14.0 - 18.0 g/dl [facility] Hematocrit 35.2(L) 42.0 - 52.0 % [facility] Mean Corpuscular Volume 93.6 80.0 - 98.0 fL [facility] Mean Corpuscular Hemoglobin 30.1 27.0 - 33.0 pg [facility] Mean Corpuscular HGB Conc 32.1 31.0 - 36.0 g/dl [facility] Red Cell Distribution Width 13.8 11.0 - 16.0 % [facility] Platelet Count 126(L) 160 - 400 X10*3/uL [facility] Mean Platelet Volume 11.7 9.4 - 12.4 fL [facility] Neutrophils Percent Auto 72.5 45 - 73 % [facility] Imm Gran Pct Auto 0.3 0.0 - 0.4 % [facility] Lymphocytes Percent Auto 19.8(L) 20 - 40 % [facility] Monocytes Percent Auto 6.0 2 - 11 % [facility] Eosinophils Percent Auto 0.7 0 - 4 % [facility] Basophils Percent Auto 0.7 0 - 2 % [facility] NRBC Pct Auto 0.0 0.0 - 0.2 /100WBC [facility] Neutrophils Absolute Auto 4.2 2.0 - 8.3 x10*3/uL [facility] Imm Gran Abs Auto 0.02 0.00 - 0.03 X10*3/uL [facility] Lymphocytes Absolute Auto 1.2 1.2 - 4.9 X10*3/uL [facility] Monocytes Absolute Auto 0.4 0.1 - 1.2 X10*3/uL [facility] Eosinophils Absolute Auto 0.0 0.0 - 0.4 X10*3/uL [facility] Basophils Absolute Auto 0.0 0.0 - 0.2 X10*3/uL [facility] NRBC Abs Auto 0.000 0.0 - 0.012 X10*3/uL [facility] 07/20/2024 2:41 PM EST 07/20/2024 2:44 PM EST Generic External Data Provider LAB BLOOD ORDERAB LES Final Result Performing Organization Address City/[facility]/ZIP Co de Phone Number [facility] [address] [place] [phone] * Type and screen (07/20/2024 12:00 PM EST) Blood Type AP [facility] Antibody Screen NEGATIVE [facility] 07/20/2024 12:0 0 PM EST 07/20/2024 12:04 PM EST Generic External Data Provider LAB BLOOD BANK TE ST ORDERABLES Final Result Performing Organization Address City/[facility] Co de Phone Number [facility] [address] [place] [phone] * High Sensitivity Troponin I (07/20/2024 11:46 AM EST) TROPONIN I HIGH SENSITIVITY 6.0 <3.5 - 35.0 ng/L [facility] Comment:The Han high sens itivity Troponin-I results should beused in conjunction with other diagnostic information suchas ECG, clinical observations and information, and patientsymptoms to aid in the diagnosis of NE. 07/20/2024 11:4 6 AM EST 07/20/2024 3:28 PM EST us Generic External Data Provider LAB BLOOD ORDERAB LES Final Result Performing Organization Address [facility] Co de Phone Number [facility] [address] [place] [phone] * (ABNORMAL) Prothrombin Time-INR (07/20/2024 11:46 AM EST) Prothrombin Time 13.8(H) 10.9 - 12.4 SEC [facility] INTERNATIONAL NORM RATIO 1.2(H) 0.9 - 1.1 [facility] Comment:INTERNATIONAL NORMAL IZED RATIO (INR) REFERENCE [...] ORDERAB LES Final Result Performing Organization Address [facility] Co de Phone Number [facility] [address] [place] [phone] * Magnesium (07/20/2024 11:46 AM EST) Magnesium 2.1 1.6 - 2.6 mg/dL [facility] 07/20/2024 11:4 6 AM EST 07/20/2024 12:02 PM EST Generic External Data Provider LAB BLOOD ORDERAB LES Final Result Performing Organization Address [facility] Co de Phone Number [facility] [address] [place] [phone] * Lipase (07/20/2024 11:46 AM EST) Lipase 35 8 - 78 U/L [facility] 07/20/2024 11:4 6 AM EST 07/20/2024 12:02 PM EST us Generic External Data Provider LAB BLOOD ORDERAB LES Final Result [facility] [address] [place] [phone] * (ABNORMAL) Comprehensive Metabolic Panel (07/20/2024 11:46 AM EST) Sodium 143 135 - 145 mmol/L [facility] Potassium 3.7 3.3 - 5.1 mmol/L [facility] Chloride 111(H) 96 - 108 mmol/L [facility] Carbon Dioxide 25 22 - 29 mmol/L [facility] Anion Gap 11(L) 12 - 20 [facility] Urea Nitrogen (BUN) 10 9 - 16 mg/dL [facility] Creatinine, Serum 1.07 0.5 - 1.4 mg/dL [facility] Creatinine Clr Calc Pharmacy 58.6 [facility] Comment:eGFR (calculated fro m the MDRD study equation) and eCrCl(calculated from the Cockcroft-Gault equation) are based ondifferent parameters and may not yield comparable results.If eCrCl result is absurd, please check patient'sheight/weight. Estimated Glomerular Filt Rate >60 [facility] Comment:Chronic Kidney Disea se: Estimated GFR < 60 mL/min/1.96z1Wifpvs Kidney Disease: Estimated GFR < 15 mL/min/1.73m2 Glucose 101 60 - 115 mg/dL [facility] Calcium 7.7(L) 8.4 - 10.2 mg/dL [facility] Bilirubin, Total 0.6 0.0 - 1.0 mg/dL [facility] Aspartate Amino Transferase 17 5 - 37 U/L [facility] Alanine Aminotransferase 13 0 - 40 U/L [facility] Total Protein 5.7(L) 6.5 - 8.0 g/dL [facility] Albumin Level 3.2(L) 3.5 - 5.0 g/dL [facility] Alkaline Phosphatase 86 39 - 117 U/L [facility] 07/20/2024 11:4 6 AM EST 07/20/2024 12:02 PM EST us Generic External Data Provider LAB BLOOD ORDERAB LES Final Result [facility] [address] [place] [phone] [phone] from Last 3 Months Insurance [facility] [employer] MEDICARE Care Teams Landscaper Relationship Specialty Start Date End Date Kermit Rangel MD [address] [place] [address] [place] [address] PCP - General Internal Medicine 07/11/24 Glenn TOTH 07/28/24
--- OUTSIDE RECORDS SUMMARY | 2024-09-13 07:14 | XMS_ITS | Encounter Summary ---
Author Organization [employer] Address [address] [facility] 7t [place] [address] Care Team Providers Care Promotional Advertising Assistant Name Role Phone Kermit Rangel MD Primary Care Prov ider Encounter Details Date Type Department Care Team ([facility] Contact Info) Description 07/11/2024 Telephone [facility] [address] [place] [address] Kermit Rangel MD [address] [place], [place] [phone] Social History Tobacco Use Types Packs/Day Years [...] Upcoming Encounters Date Type Department Care Team ([facility] Contact Info) Description 10/04/2024 10:15 AM EDT Office Visit [facility] [address] [place] [address] Ian Jauregui MD [address] [place] [address] documented as of this encounter Visit Diagnoses Not on filedocumented in this encounter Additional Health Concerns Assessment Noted Time PHQ-9 Depression Total Score: 0 07/08/20 9:15 AM EST documented as of this encounter Care Teams Promotional Advertising Assistant Relationship Specialty Start Date End Date Kermit Rangel MD [address] [place] [address] PCP - General Internal Medicine 07/11/24 Glenn TOTH 07/28/24 documented as of this encounter
--- OUTSIDE RECORDS SUMMARY | 2024-09-13 07:15 | XMS_ITS | Encounter Summary ---
Author Organization [employer] Address [address] [facility] 7[address] [place] [address] Care Team Providers Care Mail Processing Machine Operator Name Role Phone Kermit Rangel MD Primary Care Prov ider Reason for Visit * Reason Onset Date Comments Appointment Request 07/29/2024 Encounter Details Date Type Department Care Team ([facility] st Contact Info) Description 07/29/2024 Telephone [facility] [address] [place] [address] Kermit Rangel MD [address] [place], [place] [phone] Appointment Request Social History Tobacco Use Types [...] for that day if theres any availability. [phone] documented in this encounter Plan of Treatment Upcoming Encounters Date Type Department Care Team ([facility] st Contact Info) Description 10/04/2024 10:15 AM EDT Office Visit [facility] [address] [place] [address] Ian Jauregui MD [address] [place] [address] documented as of this encounter Visit Diagnoses Not on filedocumented in this encounter Additional Health Concerns Assessment Noted Time PHQ-9 Depression Total Score: 0 07/08/20 9:15 AM EST documented as of this encounter Care Teams Mail Processing Machine Operator Relationship Specialty Start Date End Date Kermit Rangel MD [address] [place] [address] PCP - General Internal Medicine 07/11/24 Glenn TOTH 07/28/24 documented as of this encounter
--- OUTSIDE RECORDS SUMMARY | 2024-09-13 07:15 | XMS_ITS ---
Author Organization [facility] Address [address] [place] [address] Care Team Providers Care Black Mill Operator Name Role Phone Cam acosta, [place] Primary Care Prov ider Unavailable Jero Hsieh, Randolph Unavailable [phone] REASON FOR VISIT FYI Encounters Encounter Location Date Provider Diagnosis [facility] [address] [place] [address] 08/31/2024 Randolph Nogueira Jr PLAN OF TREATMENT Next Appt Details Provider Name:Randolph wilkerson Jr, 10/14/2024 08:20:00 AM, [address] [place] [address] , [place], [place], [phone],
[2024-09-13 07:23] LABS: MANUAL DIFF FLAG NO
[2024-09-13 07:33] LABS: Basophils Percent Auto 0.7 % (0-2); Eosinophils Absolute Auto 0.1 X10*3/uL (0.0-0.4); Eosinophils Percent Auto 1.3 % (0-4); Hematocrit 39.1 % (42.0-52.0); Hemoglobin 13.1 g/dl (14.0-18.0); Imm Gran Abs Auto 0.03 X10*3/uL (0.00-0.03); Imm Gran Pct Auto 0.5 % (0.0-0.4); Lymphocytes Absolute Auto 1.1 X10*3/uL (1.2-4.9); Lymphocytes Percent Auto 19.3 % (20-40); Mean Corpuscular HGB Conc 33.5 g/dl (31.0-36.0); Mean Corpuscular Volume 86.5 fL (80.0-98.0); Mean Platelet Volume 10.3 fL (9.4-12.4); Monocytes Absolute Auto 0.4 X10*3/uL (0.1-1.2); Monocytes Percent Auto 7.1 % (2-11); Neutrophils Absolute Auto 3.9 x10*3/uL (2.0-8.3); Neutrophils Percent Auto 71.1 % (45-73); Platelet Count 143 X10*3/uL (160-400); Red Blood Count 4.52 X10*6/uL (4.60-5.80); White Blood Count 5.5 X10*3/uL (4.8-10.8)
[2024-09-13 08:24] LABS: Cholesterol 134 mg/dL (<200); HDL Cholesterol 50 mg/dL (>40); Iron 180 mcg/dL (45-160); LDL Cholesterol Calculated 66 mg/dL (<100); Percent Iron Saturation 62 % (15-50); Total Iron Binding Capacity 289 mcg/dL (228-428); Triglycerides 90 mg/dL (<150); Unsaturated Iron Binding 109 ug/dL
[2024-09-13 08:30] LABS: Digoxin 1.6 ng/mL (0.8-2.0)
[2024-09-13 09:01] LABS: Folate 10.1 ng/mL (> or = 4.0); Vitamin B12 334 pg/mL (200-900)
== END 2024-09-13 07:12 | disposition home or self-care (01) ==
LOC: HO.LAB 07:11
PROVIDERS: Internal Medicine; PCP Internal Medicine; Visit Provider Nurse Practitioner Family
DX: D50.0 Iron deficiency anemia secondary to blood loss (chronic) (principal); I48.91 Unspecified atrial fibrillation; R94.39 Abnormal result of other cardiovascular function study
CPT/HCPCS: 36415; 80061; 80162; 82607; 82746; 83540; 85025

== ENCOUNTER 2024-09-22 06:54 | Outpatient (REF) | payer MEDICARE, OTHER, SELFPAY ==
--- OUTSIDE RECORDS SUMMARY | 2024-09-22 06:57 | XMS_ITS | Clinical Summary ---
Author Organization [employer] Address 75 [facility] 7t [place] [address] Care Team Providers Care Hourly Shift Name Role Phone Kermit Rangel MD Primary [...] Type Department Care Team Description 09/15/[address] [address] Kermit Rangel MD FYI 09/08/2024 2:15 PM EST Office Visit [facility] PEDS [address] [place] [address] Aletha Waldrop MD Persistent atrial fibrillation (CMS/HCC) (Primary Dx); Preop examination 09/08/2024 Travel 09/06/[address] [address] Kermit Rangel MD Pre op 08/09/2024 10:45 AM EST Office Visit [facility] [address] [place] [address] Ian Jauregui MD Macular seborrheic keratosis (Primary Dx) 08/09/2024 Travel 08/04/2024 10:30 AM EST Office Visit [facility] [address] [place] [address] Kermit Rangel MD Other hemorrhoids (Primary Dx); UGI bleed; Lesion of skin of nose; Persistent atrial fibrillation (CMS/HCC) 08/04/2024 Travel 08/03/2024 Telephone [facility] [address] [place] [address] Kermit Rangel MD Chart Prep 07/29/2024 Telephone [facility] [address] [place] [address] Kermit Rangel MD Appointment Request 07/29/[address] [address] Kermit Rangel MD Appointment Request 07/20/2024 Orders Only GENERIC EXTERNAL DATA DEPARTMENT Provider, Generic External Data 07/12/2024 9:30 AM EST Office Visit [facility] [address] [place] [address] Kermit Rangel MD Iron deficiency anemia due to chronic blood loss (Primary Dx); Other hemorrhoids 07/12/2024 Travel 07/11/2024 Telephone [facility] [address] [place] [address] Kermit Rangel MD 07/08/2024 9:45 AM EST Telemedicine [facility] [address] [place] [address] Kermit Rangel MD Encounter to establish care (Primary Dx); UGI bleed; Lesion of skin of nose 07/08/2024 Travel 07/07/2024 Telephone [facility] [address] [place] [address] Jennifer Camarena MA chart prep from Last 3 Months Family History Medical [...] Description 10/04/2024 10:15 AM EDT Office Visit [facility] [address] [place] [address] Ian Jauregui MD 505 [place] [address] 11/10/2024 8:30 AM EDT Office Visit [facility] [address] [place] [address] Kermit Rangel MD [address] [place] [address] Health Maintenance Due Date Last Done Comments [...] Vitamin B12 334 200 - 900 pg/mL [facility] Comment:NORMAL 200-900 PG/ML INDETERMINATE 160-199 PG/ML DEFICIENT < 160 PG/ML Folate 10.1 > or = 4.0 ng/mL [facility] Comment:Reference Values:> o r = 4.0 ng/mL< 4.0 ng/mL suggests folate deficiency Methotrexate, aminopterin and folinic acid(leucovorin) are chemotherapeutic agents whose molecularstructures are similar to folate; therefore, the Architectfolate assay cannot be used for patients using these drugs. Blood Venous blood specimen / Unknown 09/13/2024 7:22 AM EST 09/13/2024 7:22 AM EST us Kermit Tabares MD LAB BLOOD ORDERABL ES Final Result [facility] [address] [place] [address] [phone] * (ABNORMAL) CBC auto differential (09/13/2024 7:22 AM EST) Only the most recent of3 resultswithin the time period is included. White Blood Count 5.5 4.8 - 10.8 X10*3/uL [facility] Red Blood Count 4.52(L) 4.60 - 5.80 X10*6/uL [facility] Hemoglobin 13.1(L) 14.0 - 18.0 g/dl [facility] Hematocrit 39.1(L) 42.0 - 52.0 % [facility] Mean Corpuscular Volume 86.5 80.0 - 98.0 fL [facility] Mean Corpuscular Hemoglobin 29.0 27.0 - 33.0 pg [facility] Mean Corpuscular HGB Conc 33.5 31.0 - 36.0 g/dl [facility] Red Cell Distribution Width 16.0 11.0 - 16.0 % [facility] Platelet Count 143(L) 160 - 400 X10*3/uL [facility] Mean Platelet Volume 10.3 9.4 - 12.4 fL [facility] Neutrophils Percent Auto 71.1 45 - 73 % [facility] Imm Gran Pct Auto 0.5(H) 0.0 - 0.4 % [facility] Lymphocytes Percent Auto 19.3(L) 20 - 40 % [facility] Monocytes Percent Auto 7.1 2 - 11 % [facility] Eosinophils Percent Auto 1.3 0 - 4 % [facility] Basophils Percent Auto 0.7 0 - 2 % [facility] NRBC Pct Auto 0.0 0.0 - 0.2 /100WBC [facility] Neutrophils Absolute Auto 3.9 2.0 - 8.3 x10*3/uL [facility] Imm Gran Abs Auto 0.03 0.00 - 0.03 X10*3/uL [facility] Lymphocytes Absolute Auto 1.1(L) 1.2 - 4.9 X10*3/uL [facility] Monocytes Absolute Auto 0.4 0.1 - 1.2 X10*3/uL [facility] Eosinophils Absolute Auto 0.1 0.0 - 0.4 X10*3/uL [facility] Basophils Absolute Auto 0.0 0.0 - 0.2 X10*3/uL [facility] NRBC Abs Auto 0.000 0.0 - 0.012 X10*3/uL [facility] 09/13/2024 7:22 AM EST 09/13/2024 7:22 AM EST us Generic External Data Provider LAB BLOOD ORDERAB LES Final Result [facility] [address] [place] [phone] * (ABNORMAL) Iron And Total Iron Binding Capacity (09/13/2024 7:22 AM EST) Iron 180(H) 45 - 160 mcg/dL [facility] Total Iron Binding Capacity 289 228 - 428 mcg/dL [facility] Percent Iron Saturation 62(H) 15 - 50 % [facility] Unsaturated Iron Binding 109 ug/dL [facility] Blood Venous blood specimen / Unknown 09/13/2024 7:22 AM EST 09/13/2024 7:22 AM EST us Kermit Tabares MD LAB BLOOD ORDERABL ES Final Result Performing Organization Address [facility]/ZIP Co de Phone Number [facility] [address] [place] [phone] * Digoxin (09/13/2024 7:22 AM EST) Digoxin 1.6 0.8 - 2.0 ng/mL [facility] Comment:Assay modified to mi nimize interference from aldosteroneantagonists (e.g. spironolactone and canrenone). 09/13/2024 7:22 AM EST 09/13/2024 7:22 AM EST us Generic External Data Provider LAB BLOOD ORDERAB LES Final Result Performing Organization Address [facility] Co de Phone Number [facility] [address] [place] [phone] * Lipid Panel, Standard (09/13/2024 7:22 AM EST) Triglycerides 90 <150 mg/dL [facility] Comment:Desirable Triglyceri de: less than 150 mg/dLBorderline High Triglyceride 150-199 mg/dLHigh Triglyceride: 200-499 mg/dLVery High Triglyceride: greater than or equal to 5OO mg/dL Cholesterol 134 <200 mg/dL [facility] Comment:Desirable Cholestero l: less than 200 mg/dLBorderline High Cholesterol: 200-239 mg/dLHigh Cholesterol: greater than 239 mg/dL LDL Cholesterol Calculated 66 <100 mg/dL [facility] Comment:Desirable LDL: less than 100 mg/dLNear Optimal/Above Optimal LDL: 110- 129 mg/dLBorderline High LDL: 130-159 mg/dLHigh LDL: 160-189 mg/dLVery High LDL: greater than or equal to 190 mg/dL HDL Cholesterol 50 >40 mg/dL [facility] Comment:Desirable HDL: great er than 40 mg/dL Note: This HDL assay may give artificially low results in patients with liver disease. 09/13/2024 7:22 AM EST 09/13/2024 7:22 AM EST us Generic External Data Provider LAB BLOOD ORDERAB LES Final Result Performing Organization Address [facility]/State/ZIP Co de Phone Number [facility] [address] [place] [phone] * Stress test with myocardial perfusion (08/10/2024 10:06 AM EST) 08/10/2024 10:0 6 AM EST Narrative [facility] - 08/12/2024 1:05 PM EST ? [facility] ?[address] ?[place] [address] ?Nuclear Medicine Report ? Signed ? Patient: Sandoval,Geovanni L ?MR#: [id number] ?? [id number] ? : 1945 ?Acct:[id number] ? Age/Sex: 79 / M ?ADM Date: 08/10/24 ? Loc: HO.CARD ? Attending Dr: Ros FONTAINE ? Ordering Physician: Ros Cline ?? Date of Service: 08/10/24 ?? Procedure(s): NM cardiolite stress test ?? Accession Number(s): [id number] ? cc: Kermit Rangel MD; Ros Cline [...] DD/ 1006 ? TD/TT: 08/12/24 0815 ? Director Biostatistics: ? Procedure Note Viry, Maryellen - 08/12/[address] [address] Nuclear Medicine Report Signed Patient: Geovanni Nick LMR#: [id number] : 4Acct:[id number] Age/Sex: 79 / MADM Date: 08/10/24 Loc: [facility] Attending Dr: Rso FONTAINE Ordering Physician: Ros Cline Date of Service: 08/10/24 Procedure(s): NM cardiolite stress test Accession Number(s): [id number] cc: Kermit Rangel MD; Ros Cline Lexiscan [...] 08/12/24 1303 DD/ 1006 TD/TT: 08/12/24 0815 Director Biostatistics: us [facility] External Provider CV STRE SS PROCEDURES Final Result Performing Organization Address City/State/[facility] Co de Phone Number [facility] [address] [place] [phone] * Cryotherapy, skin lesion (08/09/2024 11:04 AM [...] No ?Instructions and paperwork completed: Yes ?? [place] protocol: ??Procedure explained and questions answered to [...] EST Narrative 07/24/2024 12:49 PM EST ? [facility] ?[address] ?[place] [address] ? CT Scan Report ? Signed ? Patient: SandovalGeovanni ?MR#: [id number] ?? [id number] ? : 1945 ?Acct:[id number] ? Age/Sex: 79 / M ?ADM Date: 07/20/24 ? Loc: HO.IMC ?486-1 ? Attending Dr: Najma Israel MANAGER ANALYSIS ? Ordering Physician: Najma Israel NP ?? Date of Service: 07/24/24 ?? Procedure(s): CT head/brain wo IV con ?? Accession Number(s): [id number] ? cc: Kermit Rangel MD; Najma Israel NP ? Report Number: ?? [id number]: Total DLP = ??670.00 mGy-cm ? CLINICAL [...] DD/ 1247 ? TD/TT: 07/24/24 1247 ? Director Biostatistics: ? Procedure Note Donrosalbater, Image - 07/24/[address] [address] [address] Scan Report Signed Patient: Geovanni Nick LMR#: [id number] : 4Acct:[id number] Age/Sex: 79 / MADM Date: 07/20/24 Loc: [facility] 486-[address]: Najma Israel NP Ordering Physician: Najma Israel NP Date of Service: 07/24/24 Procedure(s): CT head/brain wo IV con Accession Number(s): [id number] cc: Kermit Rangel MD; Najma Israel NP Report Number: [id number]: Total DLP = 670.00 mGy-cm CLINICAL HISTORY: [...] 07/24/24 1248 DD/ 1247 TD/TT: 07/24/24 1247 Director Biostatistics: [facility] External Provider IMG CT PROCEDURES Edited Result - Final * XR Chest 1 View (07/24/2024 10:32 AM EST) Anatomical Region Laterality Modality Chest Radiographic Lizeth ging 07/24/2024 10:3 2 AM EST Narrative 07/24/2024 10:33 AM EST ? [facility] ?[address] ?[place] [address] ?XRay Report ? Signed ? Patient: Geovanni Nick L ?MR#: [id number] ?? [id number] ? : 1945 ?Acct:[id number] ? Age/Sex: 79 / M ?ADM Date: 07/20/24 ? Loc: HO.IMC ?486-1 ? Attending Dr: Najma Israel MANAGER ANALYSIS ? Ordering Physician: Najma Israel MANAGER ANALYSIS ?? Date of Service: 07/24/24 ?? Procedure(s): XR chest 1V ?? Accession Number(s): [id number] ? cc: Kermit Rangel MD; Najma Israel MANAGER ANALYSIS ? CLINICAL HISTORY: sob ? 1 view [...] Burns MD in OV> ?07/24/241031 ? DD/ ? TD/TT: 07/24/24 1032 ? Director Biostatistics: ? Procedure Note Donotbrandynter, Image - 07/24/[address] [address] XRay Report Signed Patient: Geovanni Nick LMR#: [id number] : 4Acct:[id number] Age/Sex: 79 / MADM Date: 07/20/24 Loc: [facility] 486-[address]: Najma Israel NP Ordering Physician: Najma Israel NP Date of Service: 07/24/24 Procedure(s): XR chest 1V Accession Number(s): [id number] cc: Kermit Rangel MD; Najma Israel NP [...] 07/24/24 1032 DD/ 1032 TD/TT: 07/24/24 1032 Director Biostatistics: us [facility] External Provider IMG XR PROCEDURES Edited Result - Final * Type and screen (07/20/2024 12:00 PM EST) Blood Type AP [facility] Antibody Screen NEGATIVE [facility] 07/20/2024 12:0 0 PM EST 07/20/2024 12:04 PM EST Generic External Data Provider LAB BLOOD BANK TE ST ORDERABLES Final Result Performing Organization Address [facility] de Phone Number [facility] [address] [place] [phone] * High Sensitivity Troponin I (07/20/2024 11:46 AM EST) TROPONIN I HIGH SENSITIVITY 6.0 <3.5 - 35.0 ng/L [facility] Comment:The Han high sens itivity Troponin-I results should beused in conjunction with other diagnostic information suchas ECG, clinical observations and information, and patientsymptoms to aid in the diagnosis of PA. 07/20/2024 11:4 6 AM EST 07/20/2024 3:28 PM EST Generic External Data Provider LAB BLOOD ORDERAB LES Final Result Performing Organization Address Banner Number [facility] [address] [place] [phone] * (ABNORMAL) Prothrombin Time-INR (07/20/2024 11:46 AM EST) Prothrombin Time 13.8(H) 10.9 - 12.4 SEC [facility] INTERNATIONAL NORM RATIO 1.2(H) 0.9 - 1.1 [facility] Comment:INTERNATIONAL NORMAL IZED RATIO (INR) [...] ORDERAB LES Final Result Performing Organization Address [facility] Co de Phone Number [facility] [address] [place] [phone] * Magnesium (07/20/2024 11:46 AM EST) Magnesium 2.1 1.6 - 2.6 mg/dL [facility] 07/20/2024 11:4 6 AM EST 07/20/2024 12:02 PM EST us Generic External Data Provider LAB BLOOD ORDERAB LES Final Result Performing Organization Address [facility] Co ms Phone Number [facility] [address] [place] [phone] * Lipase (07/20/2024 11:46 AM EST) Lipase 35 8 - 78 U/L [facility] 07/20/2024 11:4 6 AM EST 07/20/2024 12:02 PM EST Generic External Data Provider LAB BLOOD ORDERAB LES Final Result Performing Organization Address [facility] de Phone Number [facility] [address] [place] [phone] * (ABNORMAL) Comprehensive Metabolic Panel (07/20/2024 11:46 AM EST) Sodium 143 135 - 145 mmol/L [facility] Potassium 3.7 3.3 - 5.1 mmol/L [facility] Chloride 111(H) 96 - 108 mmol/L [facility] Carbon Dioxide 25 22 - 29 mmol/L [facility] Anion Gap 11(L) 12 - 20 [facility] Urea Nitrogen (BUN) 10 9 - 16 mg/dL [facility] Creatinine, Serum 1.07 0.5 - 1.4 mg/dL [facility] Creatinine Clr Calc Pharmacy 58.6 [facility] Comment:eGFR (calculated fro m the MDRD study equation) and eCrCl(calculated from the Cockcroft-Gault equation) are based ondifferent parameters and may not yield comparable results.If eCrCl result is absurd, please check patient'sheight/weight. Estimated Glomerular Filt Rate >60 [facility] Comment:Chronic Kidney Disea se: Estimated GFR < 60 mL/min/[id number] Kidney Disease: Estimated GFR < 15 mL/min/1.73m2 Glucose 101 60 - 115 mg/dL [facility] Calcium 7.7(L) 8.4 - 10.2 mg/dL [facility] Bilirubin, Total 0.6 0.0 - 1.0 mg/dL [facility] Aspartate Amino Transferase 17 5 - 37 U/L [facility] Alanine Aminotransferase 13 0 - 40 U/L [facility] Total Protein 5.7(L) 6.5 - 8.0 g/dL [facility] Albumin Level 3.2(L) 3.5 - 5.0 g/dL [facility] Alkaline Phosphatase 86 39 - 117 U/L [facility] 07/20/2024 11:4 6 AM EST 07/20/2024 12:02 PM EST us Generic External Data Provider LAB BLOOD ORDERAB LES Final Result [facility] [address] [place] [phone] from Last 3 Months Insurance [facility] STANDARD MEDICARE Care Teams Hourly Shift Relationship Specialty Start Date End Date Kermit Rangel MD [address] [place] [phone] PCP - General Internal Medicine 07/11/24 [place] TOTH 07/28/24
--- OUTSIDE RECORDS SUMMARY | 2024-09-22 06:57 | XMS_ITS | Encounter Summary ---
Author Organization [employer] Address [address] [facility] 7t [place] [address] Care Team Providers Care Customs Examiner Name Role Phone Kermit Rangel MD Primary Care Prov ider Reason for Visit * Reason Comments Pre-op Exam Encounter Details Date Type Department Care Team ([facility] Contact Info) Description 09/08/2024 2:15 PM EST Office Visit [facility] [address] [place], [place] [phone] Aletha Waldrop MD [address] [place] [address] Persistent atrial fibrillation (CMS/HCC) (Primary Dx); Preop [...] 10:15 AM EDT Office Visit [facility] [address] [place] [address] Ian Jauregui MD [address] [place] [address] 11/10/2024 8:30 AM EDT Office Visit [facility] [address] [place] [address] Kermit Rangel MD [address] [place] [address] documented as of this encounter Visit Diagnoses Diagnosis Persistent atrial fibrillation (CMS/HCC)- Primary Atrial fibrillation Preop examination Unspecified pre-operative examination documented in this encounter Additional Health Concerns Assessment Noted Time PHQ-9 Depression Total Score: 0 07/08/20 9:15 AM EST documented as of this encounter Care Teams Customs Examiner Relationship Specialty Start Date End Date Kermit Rangel MD [address] [place] [phone] PCP - General Internal Medicine 07/11/24 [place] TOTH 07/28/24 documented as of this encounter
--- OUTSIDE RECORDS SUMMARY | 2024-09-22 06:57 | XMS_ITS | Encounter Summary ---
Author Organization [employer] Address [address] 7t [place] [address] Care Team Providers Care Surgery Nurse Name Role Phone Kermit Rangel MD Primary Care Prov ider Reason for Visit * Reason Onset Date Comments FYI 09/15/2024 Encounter Details Date Type Department Care Team ([facility] st Contact Info) Description 09/15/2024 Telephone [facility] MEDICINE [address] [place] [address] Kermit Rangel MD [address] [place], [place] [phone] FYI Social History Tobacco Use Types Packs/Day [...] look at labs and contact Kisha at [phone]. documented in this encounter Plan of Treatment Upcoming Encounters Date Type Department Care Team (Late st Contact Info) Description 10/04/2024 10:15 AM EDT Office Visit [facility] CHC MED & PEDS [address] [place] [address] Ian Jauregui MD [address] [place] [address] 11/10/2024 8:30 AM EDT Office Visit [facility] MED & PEDS [address] [place] [address] Kermit Rangel MD [address] [place] [address] documented as of this encounter Visit Diagnoses Not on filedocumented in this encounter Additional Health Concerns Assessment Noted Time PHQ-9 Depression Total Score: 0 07/08/20 9:15 AM EST documented as of this encounter Care Teams Surgery Nurse Relationship Specialty Start Date End Date Kermit Rangel MD [address] [place] [address] PCP - General Internal Medicine 07/11/24 [place] TOTH 07/28/24 documented as of this encounter
--- OUTSIDE RECORDS SUMMARY | 2024-09-22 06:57 | XMS_ITS | Encounter Summary ---
Author Organization [employer] Address [address] [facility] [address] 7t [place] [address] Care Team Providers Care Green Hide Inspector Name Role Phone Kermit Rangel MD Primary Care Prov ider Encounter Details Date Type Department Care Team ([facility] Contact Info) Description 07/11/2024 Telephone [facility] MEDICINE [address] [place] [address] Kermit Rangel MD [address] [place], [place] [phone] Social History Tobacco Use Types Packs/Day Years [...] Upcoming Encounters Date Type Department Care Team ([facility] Contact Info) Description 10/04/2024 10:15 AM EDT Office Visit [facility] CHC MED & PEDS [address] [place] [address] Ian Jauregui MD [address] [place] [address] 11/10/2024 8:30 AM EDT Office Visit [facility] CHC MED & PEDS [address] [place] [address] Kermit Rangel MD [address] [place] [address] documented as of this encounter Visit Diagnoses Not on filedocumented in this encounter Additional Health Concerns Assessment Noted Time PHQ-9 Depression Total Score: 0 07/08/20 9:15 AM EST documented as of this encounter Care Teams Green Hide Inspector Relationship Specialty Start Date End Date Kermit Rangel MD [address] [place] [address] PCP - General Internal Medicine 07/11/24 [place] TOTH 07/28/24 documented as of this encounter
--- OUTSIDE RECORDS SUMMARY | 2024-09-22 06:57 | XMS_ITS | Patient Health Record ---
Author Organization [facility] Address [address] [place] [address] Care Team Providers Care Cashier General Name Role Phone Cam acosta, Kermit Primary Care Prov idetony Nogueira Jr, Randolph Unavailable [phone] Allergies No Known Allergies Results Component Value Reference Range Notes Type and Screen Reviewed date:06/20/2024 09:16:50 AM Interpretation: Performing Lab:[facility], [address] [place] [phone] Notes/Report: Results at Issue Units as of 06/18/24 1158 ... Test View Group: Most Recent HGB HCT Results LABORATORY Date Time Test Result Flag Normal Range 06/18/24 0804 HGB 8.3 L 14.0-18.0 g/dl 06/18/24 0804 HCT 23.7 L 42.0-52.0 % Hgb 7-9 gm na No no Blood Type AP Antibody Screen NEGATIVE Red Blood Cells Reviewed date:06/20/2024 09:16:57 AM Interpretation: Performing Lab:[facility], [address] [place] [phone] Notes/Report: Red Blood Cells [id number] AP RC Red Blood Cells TRANSFUSED 06/18/24 1157 Red Blood Cells [id number] AP RC Red Blood Cells NOT AVAILABLE Pathology Reviewed date:06/24/2024 09:37:10 PM Interpretation: Performing Lab:[facility], [address] [place] [address], [place] [address] Notes/Report: -- ---- Name: France Kirkland Age/Sex: 79/M : 1945 Unit#: [id number] Attend Dr: Angela Agudelo MD Re06/17/24 Status : DIS IN Location: [facility] 48-1 Disch: 06/21/24 -- ---- SPEC : [id number] RECD : 06/20/24 STATUS: TIERRA ANDRADE NUM: [id number] CATHY: 06/18/[address] [facility] DR: [place] Nogueira MD ENTERED: 06/20/24 SP TYPE: Surgical OTHR DR: Angela Agudelo MD ORDERED: HE Stain/3, Gross Micro L4, IHC, H. pylori Addendum Addendum 1 Entered: 06/24/24-1049 Immunostain for H. pylori is negative. Control stains appropriately. Addendum Signed (signature on file) Holly Rivers 06/24/24 1051 -- ---- Diagnosis Gastric antrum, biopsy: Chronic gastritis with minimal activity; negative for intestinal metaplasia and dysplasia. Comment: Immunostain for H. pylori pending; addendum to follow. Clinical History Pre-Op Dx: GI bleed Post-Op Dx: Gastric ulcers Microscopic Description Microscopic sections reviewed. Material Received Antrum biopsies Gross Description Received in formalin labeled ?antrum biopsies? are 2 killian rectangular tissue fragments each measuring 0.35 cm, submitted in toto in a cassette labeled A. CEDS Special studies ordered and performed: Immunostain for H.pylori on A1. CONTINUED ON NEXT PAGE -- ---- Name: France Kirkland Age/Sex: 79/M : 1945 Unit#: [id number] Attend Dr: Angela Agudelo MD Re06/17/24 Status : DIS IN Location: [facility] 482-1 Disch: 06/21/24 -- ---- SPEC : [id number] RECD : 06/20/24 STATUS: TIERRA ANDRADE NUM: [id number] CATHY: 06/18/[address] [facility] DR: [place] Nogueira MD ENTERED: 06/20/24 SP TYPE: Surgical OTHR DR: Angela Agudelo MD ORDERED: HE Stain/3, Gross Micro L4, IHC, H. pylori Copies To: [place] Nogueira MD [address] [place] [address] Angela Agudelo MD [address] [place] [address] -- ---- Signed (signature on file) Holly [place] 06/21/24 1426 -- ---- END OF REPORT Complete Blood Count no Diff Reviewed date:06/20/2024 09:16:35 AM Interpretation: Performing Lab:[facility], [address] [place] [address] Notes/Report: White Blood Count 4.6 4.8-10.8 X10*3/uL [...] Panel Reviewed date:06/20/2024 09:16:43 AM Interpretation: Performing Lab:[facility], [address] [place] [phone] Notes/Report: Sodium 138 135-145 mmol/L Potassium 3.9 [...] Diff Reviewed date:06/24/2024 09:37:45 PM Interpretation: Performing Lab:[facility], [address] [place] [phone] Notes/Report: White Blood Count 5.7 4.8-10.8 X10*3/uL [...] PROFILE Reviewed date:06/24/2024 09:36:37 PM Interpretation: Performing Lab:[facility], [address] [place] [phone] Notes/Report: Iron 31 45-160 mcg/dL Total Iron Binding Capacity 257 228-428 mcg/dL Percent Iron Saturation 12 15-50 % Unsaturated Iron Binding 226 Ferritin Reviewed date:06/24/2024 09:37:24 PM Interpretation: Performing Lab:[facility], [address] [place] [phone] Notes/Report: Ferritin 45 20-250 ng/mL Complete Blood Count Auto Di ff Reviewed date:07/05/2024 03:41:05 PM Interpretation: Performing Lab:[facility], [address] [place] [phone] Notes/Report: White Blood Count 5.7 4.8-10.8 X10*3/uL [...] PROFILE Reviewed date:07/05/2024 03:40:58 PM Interpretation: Performing Lab:[address] [address] Notes/Report: Iron 103 45-160 mcg/dL Total Iron Binding Capacity 283 228-428 mcg/dL Percent Iron Saturation 36 15-50 % Unsaturated Iron Binding 180 Ferritin Reviewed date:07/05/2024 03:41:16 PM Interpretation: Performing Lab:[address] [address] Notes/Report: Ferritin 27 20-250 ng/mL Reason For Referral No Information Medications Medication SIG (Take, Route, Frequency, Duration) Notes [...] EVER Y DAY Oral for 30 Unknown Social History Tobacco Use: Social History Observation Description Date Details (start date - stop date) Never Smoker NA - NA Tobacco Use/Smoking Question Answer Notes Patient is a nonsmoker Alcohol Screen Question Answer Notes Did you have a drink containing alcohol in the p ast year? No Points 0 Interpretation Negative Problems Problem Type SNOMED Code ICD Code Onset Dates Problem Status W/U Status Risk Notes Problem 988555766 Colon cancer screening (Z12.11) Active confirmed Problem 83783424 Acute gastric ulcer with hemorrhage (K25.0) Active confirmed Vital Signs Blood pressure diastolic 00 mm Hg 06/29/2024 Height 5 ft 11 in in 06/29/2024 Blood pressure systolic 00 mm Hg 06/29/2024 Weight 182 lbs 06/29/2024 BMI 25.38 kg/m2 06/29/2024 Encounters Encounter Location Date Provider Diagnosis [facility] [address] [place] [phone] 06/29/2024 Randolph Nogueira Jr Acute gastric ulcer with hemorrhage K25.0 and Colon cancer screening Z12.11 [facility] [address] [place] [address] 06/22/2024 Randolph Nogueira Jr Acute gastric ulcer with hemorrhage K25.0 [facility] [address] [place] [address] 06/28/2024 Randolph Nogueira Jr [facility] [address] [place] [address] 07/05/2024 Randolph Nogueira Jr [facility] [address] [place] [phone] 07/21/2024 Randolph Nogueira Jr [facility] [address] [place] [address] 08/12/2024 [facility] [address] [place] [address] 08/18/2024 [facility] [address] [place] [address] 08/19/2024 Randolph Nogueira Jr [facility] [address] [place] [address] 08/19/2024 [facility] [address] [place] [address] 08/31/2024 Randolph Nogueira Jr Assessments Encounter Date Diagnosis (ICD Code) Assessment Notes Treatment Notes Treatment Clinical Notes Section Notes 06/29/2024 Colon cancer screening (ICD-10 - Z12.11) We reviewed his presentation and findings in detail today. We reviewed his hospital stay as well. We recommended followup laboratory testing in 2 weeks to ensure stability of his blood count. He is advised to go to the ER if he has any rectal bleeding including melena. He will continue b.i.d. PPI for one month following discharge and then decrease this to once daily. He is advised to avoid NSAIDs and alcohol. Followup endoscopy will be arranged 8-12 weeks after his index case. He will follow up with his primary care provider. She will need colonoscopy at some point but this was deferred until after his GI bleeding issues resolve. He is advised to start iron and vitamin C and was cautioned that stools may be black from iron. 06/29/2024 Acute gastric ulcer with hemorrhage (ICD-10 - K25.0) labs to be done in 2 weeks,Endosco py material was printed We reviewed his presentation and findings in detail today. We reviewed his hospital stay as well. We recommended followup laboratory testing in 2 weeks to ensure stability of his blood count. He is advised to go to the ER if he has any rectal bleeding including melena. He will continue b.i.d. PPI for one month following discharge and then decrease this to once daily. He is advised to avoid NSAIDs and alcohol. Followup endoscopy will be arranged 8-12 weeks after his index case. He will follow up with his primary care provider. She will need colonoscopy at some point but this was deferred until after his GI bleeding issues resolve. He is advised to start iron and vitamin C and was cautioned that stools may be black from iron. 06/22/2024 Acute gastric ulcer with hemorrhage (ICD-10 - K25.0) Plan Of Treatment Pending Test Test Name Order Date IRON + IBC (FE) 06/29/2024 IRON + IBC (FE) 06/22/2024 FERRITIN 06/22/2024 FERRITIN 06/29/2024 CBC w/o DIFF 06/22/2024 CBC w/o DIFF 06/29/2024 Future Test Test Name Order Date UPPER GI ENDOSCOPY 06/29/2024 Next Appt Details Provider Name:Randolph wilkerson Jr, 10/14/2024 08:20:00 AM, [address] [place] [address] , [place], [place], [phone], Insurance Providers Payer Name Payer Address Payer Phone Subscriber Number Group Number Insured Name Patient Relationship to Insured Coverage Start Date Coverage End Date MEDICARE OF [place] [address] [place] [id number] [phone] [id number] ТАТЬЯНА KIRKLAND Self - patient is the insured MEDICAID OF [facility] [address] [place] [address] [phone] [id number] ТАТЬЯНА KIRKLAND Self - patient is the insured Medical (General) History Medical History History ICD Code GI bleed with gastric ulcer 07/12 Surgical History Surgery Date(Month/Year) HERNIA REPAIR BILATERAL AGE 4
--- OUTSIDE RECORDS SUMMARY | 2024-09-22 06:57 | XMS_ITS | Encounter Summary ---
Author Organization [employer] Address [address] [facility] 7t [place] [address] Care Team Providers Care Process Improvement Specialist Name Role Phone Kermit Rangel MD Primary Care Prov ider Reason for Visit * Reason Onset Date Comments Appointment Request 07/29/2024 Encounter Details Date Type Department Care Team ([facility] st Contact Info) Description 07/29/2024 Telephone [facility] MEDICINE [address] [place] [address] Kermit Rangel MD [address] [place], [place] [phone] Appointment Request Social History Tobacco Use Types [...] for that day if theres any availability. [phone] documented in this encounter Plan of Treatment Upcoming Encounters Date Type Department Care Team (Late st Contact Info) Description 10/04/2024 10:15 AM EDT Office Visit [facility] MED & PEDS [address] [place] [address] Ian Jauregui MD [address] [place] [address] 11/10/2024 8:30 AM EDT Office Visit [facility] MED & PEDS [address] [place] [address] Kermit Rangel MD [address] [place] [address] documented as of this encounter Visit Diagnoses Not on filedocumented in this encounter Additional Health Concerns Assessment Noted Time PHQ-9 Depression Total Score: 0 07/08/20 9:15 AM EST documented as of this encounter Care Teams Process Improvement Specialist Relationship Specialty Start Date End Date Kermit Rangel MD [address] [place] [address] PCP - General Internal Medicine 07/11/24 [place] TOTH 07/28/24 documented as of this encounter
--- OUTSIDE RECORDS SUMMARY | 2024-09-22 06:57 | XMS_ITS ---
Author Organization [facility] Address [address] [place] [address] Care Team Providers Care General Pediatrician Name Role Phone Cam acosta, Kermit Primary Care Prov ider Chip Nogueira Jr, Randolph Saunders [phone] REASON FOR VISIT FYI Encounters Encounter Location Date Provider Diagnosis [facility] [address] [place] [address] 08/31/2024 Randolph Nogueira Jr Plan Of Treatment Next Appt Details Provider Name:Randolph wilkerson Jr, 10/14/2024 08:20:00 AM, [address] [place] [address] , [place], [place], [phone], Progress Notes * ТАТЬЯНА KIRKLAND LDOB:1944 (79 yo M)Acc No.[id number]:08/31/2024 Patient:?RAFFIТАТЬЯНА :1945???Age:79 Y???Sex:Male Address:[address], [place], [address] * true * Date:? Generated for Printi hamilton/Princess/eTransmitting on:?09/22/2024 06:57 AM EST
--- OUTSIDE RECORDS SUMMARY | 2024-09-22 06:57 | XMS_ITS ---
Author Organization [facility] Address [address] [place] [address] Care Team Providers Care Project Management Advisor Name Role Phone Cam acosta, Kermit Primary Care Prov ider Unavailable [place] Nogueira Jr Unavailable REASON FOR VISIT put on eliquis Medications Medication SIG (Take, Route, Frequency, Duration) [...] Active Encounters Encounter Location Date Provider Diagnosis [facility] [address] [facility] [address] [place] [address] 08/19/2024 Randolph Nogueira Jr Plan Of Treatment Next Appt Details Provider Name:Randolph wilkerson Jr, 10/14/2024 08:20:00 AM, [address] [place] [address] , [place], [place], [phone], Progress Notes * ТАТЬЯНА KIRKLAND LDOB:1944 (79 yo M)Acc No.[id number]:08/19/2024 Patient:?ТАТЬЯНА KIRKLAND :1945???Age:79 Y???Sex:Male Address:[address] [place] [address] [address], [place], [address] Subjective: * Chief Complaints: * ???Put on eliquis * Medical History:? * Surgical History:? * Hospitalization/Major Diagno stic Procedure:? * Medications:?TakingDocusate Sodium 100 MG Capsule 1 capsule as needed Orally Once a daydilTIAZem HCl 120 MG Tablet as directed Orally Digoxin 0.25 MG/ML Solution as directed Injection Apixaban 5 MG Tablet as directed Orally Acetaminophen 650 MG/20.3ML Solution as directed Orally Taking Docusate Sodium 100 MG Capsule 1 capsule as needed Orally Once a dayTaking dilTIAZem HCl 120 MG Tablet as directed Orally Taking Digoxin 0.25 MG/ML Solution as directed Injection Taking Apixaban 5 MG Tablet as directed Orally Taking Acetaminophen 650 MG/20.3ML Solution as directed Orally DiscontinuedVitamin C 500 MG Tablet Chewable 1 tablet Orally Once a dayDiscontinued Vitamin C 500 MG Tablet Chewable 1 tablet Orally Once a dayUnknownIron (Ferrous Sulfate) 325 (65 Fe) MG Tablet 1 tablet Orally dailyOmeprazole 40 MG Capsule Delayed Release Oral Metoprolol Succinate ER 100 MG Tablet Extended Release 24 Hour 1 tablet Orally Once a dayThiamine HCl 100 MG Tablet TAKE ONE TABLET EVERY DAY Oral Folic Acid 1 MG Tablet TAKE ONE TABLET EVERY DAY Oral MiraLax (colon prep) 8.3 ounce ((238) grams mixed with Gatorade or Crystal Light orally begin at 5:00 p.m. the day before the procedureDulcolax (colon prep) 5 MG Tablet Delayed Release take at 3:00 p.m and 7:00p.m. Orally two tablets twice a day for one dayDulcolax (colon prep) 5 MG Tablet Delayed Release take at 3:00 p.m and 7:00p.m. Orally two tablets twice a day for one dayMiraLax (colon prep) 8.3 ounce ((238) grams mixed with Gatorade or Crystal Light orally begin at 5:00 p.m. the day before the procedureMedication List reviewed and reconciled with the patientUnknown Iron (Ferrous Sulfate) 325 (65 Fe) MG Tablet 1 tablet Orally dailyUnknown Omeprazole 40 MG Capsule Delayed Release Oral Unknown Metoprolol Succinate ER 100 MG Tablet Extended Release 24 Hour 1 tablet Orally Once a dayUnknown Thiamine HCl 100 MG Tablet TAKE ONE TABLET EVERY DAY Oral Unknown Folic Acid 1 MG Tablet TAKE ONE TABLET EVERY DAY Oral Unknown MiraLax (colon prep) 8.3 ounce ((238) grams mixed with Gatorade or Crystal Light orally begin at 5:00 p.m. the day before the procedureUnknown Dulcolax (colon prep) 5 MG Tablet Delayed Release take at 3:00 p.m and 7:00p.m. Orally two tablets twice a day for one dayUnknown Dulcolax (colon prep) 5 MG Tablet Delayed Release take at 3:00 p.m and 7:00p.m. Orally two tablets twice a day for one dayUnknown MiraLax (colon prep) 8.3 ounce ((238) grams mixed with Gatorade or Crystal Light orally begin at 5:00 p.m. the day before the procedureMedication List reviewed and reconciled with the patient Objective: Assessment: Plan: * Treatment: * Procedure Codes:? * true * Date:? Generated for Kim villasenor/Princess/Rod on:?09/22/2024 06:56 AM EST
--- OUTSIDE RECORDS SUMMARY | 2024-09-22 06:57 | XMS_ITS ---
Author Organization [facility] Address [address] [place] [address] Care Team Providers Care Dental Hygiene Administrative Assistant Name Role Phone Cam acosta, Kermit Primary Care Prov ider Randolph Miguel Jr REASON FOR VISIT acute gastric ulcer w/ hemorrh Encounters Encounter Location Date Provider Diagnosis [facility] Outpatient [address] [place] [phone] 08/26/2024 Randolph Nogueira Jr Plan Of Treatment Next Appt Details Provider Name:Randolph wilkerson Jr, 10/14/2024 08:20:00 AM, [address] [place] [address], [phone], Progress Notes * ТАТЬЯНА KIRKLAND LDOB:1944 (79 yo M)Acc No.[id number]:08/26/2024 EGD&COL/MAC Patient:?RAFFI ТАТЬЯНА Clark Provider:?Randolph Nogueira MD :1945???Age:79 Y???Sex:Male Pernell e:08/26/2024 Address:[address] [place] [address] [address] [id number] Pcp:Kermit porter md Subjective: * Chief Complaints: * ???1. Acute gastric ulcer w/ hemorrh. * Medical History:? Objective: * Vitals:? Assessment: Plan: * Treatment: * * The named appointment provid er may or may not be the originator of this progress note, and it is not deemed complete until electronically signed by the appointment provider. Sign off status: Pending * Provider:?Randolph Nogueira MD Date:?0 08/26/2024 Generated for Kim villasenor/Princess/Rod on:?09/22/2024 06:56 AM EST
--- OUTSIDE RECORDS SUMMARY | 2024-09-22 06:57 | XMS_ITS | Encounter Summary ---
Author Organization [employer] Address [address] 7t [place] [address] Care Team Providers Care New Vehicle Sales Consultant Name Role Phone Kermit Rangel MD Primary Care Prov ider Reason for Visit * Reason Onset Date Comments Pre op 09/06/2024 Encounter Details Date Type Department Care Team ([facility] st Contact Info) Description 09/06/2024 Telephone [facility] MEDICINE [address] [place] [address] Kermit Rangel MD [address] [place], [place] [phone] Pre op Social History Tobacco Use Types [...] Chua Facility name: [facility] Surgeon's office number: [phone] Surgeon's office fax number: [phone] Contact name (person you spoke with): Aishwarya Last office note from surgeon requested: No Contact Aishwarya at [phone] Send Message to Shyla Witt and Chapin Flowers documented in this encounter Plan of Treatment Upcoming Encounters Date Type Department Care Team ([facility] st Contact Info) Description 10/04/2024 10:15 AM EDT Office Visit [facility] MED & PEDS [address] [place] [address] Ian Jauregui MD [address] [place] [address] 11/10/2024 8:30 AM EDT Office Visit [facility] MED & PEDS [address] [place] [address] Kermit Rangel MD [address] [place] [address] documented as of this encounter Visit Diagnoses Not on filedocumented in this encounter Additional Health Concerns Assessment Noted Time PHQ-9 Depression Total Score: 0 07/08/20 9:15 AM EST documented as of this encounter Care Teams New Vehicle Sales Consultant Relationship Specialty Start Date End Date Kermit Rangel MD [address] [place] [address] PCP - General Internal Medicine 07/11/24 [place] TOTH 07/28/24 documented as of this encounter
[2024-09-22 07:57] LABS: Digoxin 0.9 ng/mL (0.8-2.0)
== END 2024-09-22 06:55 | disposition home or self-care (01) ==
LOC: HO.LAB 06:54
PROVIDERS: PCP Internal Medicine; Visit Provider Nurse Practitioner Family
DX: I48.91 Unspecified atrial fibrillation (principal); Z79.899 Other long term (current) drug therapy
CPT/HCPCS: 36415; 80162

== ENCOUNTER 2024-10-14 06:37 | Day surgery (SDC) | payer MEDICARE, OTHER, SELFPAY ==
--- OUTSIDE RECORDS SUMMARY | 2024-06-30 13:52 | XMS_ITS ---
Author Organization [facility] Address [address] [place] [address] Care Team Providers Care Fruit Worker Name Role Phone NONE, NONE Primary Care Provider Randolph Salter Jr Unavailable REASON FOR VISIT pt seen in hospital/f/u appt? PROBLEMS Problem Type ICD Code Onset Dates Problem Status W/U Status Risk SNOMED Code Notes Problem Acute gastric ulcer with hemorrhage (K25.0) Active confirmed [id number] Encounters Encounter Location Date Provider Diagnosis [facility] [address] [place] [address] 06/22/2024 Randolph Nogueira Jr Acute gastric ulcer with hemorrhage K25.0 ASSESSMENTS Encounter Date Diagnosis Assessment Notes Treatment Notes Treatment Clinical Notes 06/22/2024 Acute gastric ulcer with hemorrhage (ICD-10 - K25.0) PLAN OF TREATMENT Pending Test Test Name Order Date IRON + IBC (FE) 06/22/2024 FERRITIN 06/22/2024 CBC w/o DIFF 06/22/2024 Next Appt Details Provider Name:Randolph wilkerson Jr, 08/26/2024 10:00:00 AM, [address] [place] [address] , [place], [place], [phone],
--- OUTSIDE RECORDS SUMMARY | 2024-06-30 13:52 | XMS_ITS ---
Author Organization [facility] Address [address] [place] [address] Care Team Providers Care Senior Energy Consultant Name Role Phone NONE, NONE Primary Care Provider Nakul Nogueira Jr, Randolph Unavailable REASON FOR VISIT gastric ulcer Encounters Encounter Location Date Provider Diagnosis [facility] [address] [place] [phone] 06/28/2024 Randolph Nogueira Jr PLAN OF TREATMENT Next Appt Details Provider Name:Randolph wilkerson Jr, 08/26/2024 10:00:00 AM, [address] [place] [address] , [place], [place], [phone],
--- OUTSIDE RECORDS SUMMARY | 2024-06-30 13:52 | XMS_ITS ---
Author Organization [facility] Address [address] [place] [address] Care Team Providers Care Grain Elevator Superintendent Name Role Phone NONE, NONE Primary Care Provider Randolph Salter Jr Unavailable [phone] ALLERGIES No Known Allergies REASON FOR VISIT Patient presents today for a hospital f/u MEDICATIONS Medication SIG (Take, Route, Frequency, Duration) Notes Start Date End Date Status Iron (Ferrous Sulfate) 325 (65 Fe) MG 1 tablet Orally daily for 30 day(s) 06/29/2024 Active Folic Acid 1 MG TAKE ONE TABLET EVER Y DAY Oral for 30 Active Thiamine HCl 100 MG TAKE ONE TABLET EVER Y DAY Oral for 30 Active Metoprolol Succinate ER 25 MG Oral for 90 Active Vitamin C 500 MG 1 tablet Orally Once a day for 30 day(s) 06/29/2024 Active Omeprazole 40 MG Oral for 45 A ctive SOCIAL HISTORY Tobacco Use: Social History Observation Description Date Details (start date - stop date) Never Smoker NA - NA Sex Assigned At : Social History Observation Description Sex Assigned At Unknown Tobacco Use/Smoking Question Answer Notes Patient is a nonsmoker Alcohol Screen Question Answer Notes Did you have a drink containing alcohol in the p ast year? No Points 0 Interpretation Negative PROBLEMS Problem Type ICD Code Onset Dates Problem Status W/U Status Risk SNOMED Code Notes Problem Colon cancer screening (Z12.11) Active confirmed [id number] VITAL SIGNS BMI 25.38 kg/m2 06/29/2024 Blood pressure systolic 00 mm Hg 06/29/20 24 Blood pressure diastolic 00 mm Hg 024 Height 5 ft 11 in in 06/29/2024 Weight 182 lbs 06/29/2024 Encounters Encounter Location Date Provider Diagnosis [facility] [address] [place] [address] 06/29/2024 Randolph Nogueira Jr Acute gastric ulcer with hemorrhage K25.0 and Colon cancer screening Z12.11 ASSESSMENTS Encounter Date Diagnosis Assessment Notes Treatment Notes Treatment Clinical Notes 06/29/2024 Acute gastric ulcer with hemorrhage (ICD-10 - K25.0) labs to be done in 2 weeks,Endoscopy material was printed 06/29/2024 Colon cancer screening (ICD-10 - Z12.11) PLAN OF TREATMENT Medication Medication Name Sig Start Date Stop Date Notes Iron (Ferrous Sulfate) 325 ( 65 Fe) MG 1 tablet Orally daily for 30 day(s) 06/29/2024 Vitamin C 500 MG 1 tablet Orally Once a day for 30 day(s) 06/29/2024 Treatment Notes Assessment Notes Acute gastric ulcer with hemorrhage labs to be done in 2 weeks,Endoscopy material was printed Pending Test Test Name Order Date IRON + IBC (FE) 06/29/2024 FERRITIN 06/29/2024 CBC w/o DIFF 06/29/2024 Future Test Test Name Order Date UPPER GI ENDOSCOPY 06/29/2024 Next Appt Details Follow Up: 1 Year, Reason: Provider Name:Randolph wilkerson Jr, 08/26/2024 10:00:00 AM, [address] [place] [address] , [place], [place], [phone], Progress Notes * Examination Category Sub-Category Detail Notes General Examination GENERAL APPEARANCE: in no ac pascual distress HEAD: normocephalic EYES: sclera non-icteric NECK/THYROID: no lymphadenopathy HEART: S1, S2 normal, no mu rmurs CHEST: normal shape and exp ansion LUNGS: clear to auscultatio n bilaterally ABDOMEN: soft, nontender, non distended, bowel sounds present, no organomegaly SKIN: anicteric EXTREMITIES: no clubbing, cyanosi s, or edema PSYCH: cognitive function i ntact ORAL CAVITY: mucosa moist
--- OUTSIDE RECORDS SUMMARY | 2024-06-30 13:52 | XMS_ITS | Patient Health Record ---
Author Organization [facility] Address [address] [place] [address] Care Team Providers Care Regional Business Manager Name Role Phone NONE, NONE Primary Care Provider Randolph Salter Jr Unavailable [phone] ALLERGIES No Known Allergies RESULTS Component Value Reference Range Notes Type and Screen Reviewed date:06/20/2024 09:16:50 AM Interpretation: Performing Lab:[facility], [address] [place] [phone] Notes/Report: Results at Issue Units as of 06/18/24 1158 ... Test View Group: Most Recent HGB HCT Results LABORATORY Date Time Test Result Flag Normal Range 06/18/24 0804 HGB 8.3 L 14.0-18.0 g/dl 06/18/24 0804 HCT 23.7 L 42.0-52.0 % Hgb 7-9 gm na No no Blood Type AP Antibody Screen NEGATIVE Red Blood Cells Reviewed date:06/20/2024 09:16:57 AM Interpretation: Performing Lab:[address] [phone] Notes/Report: Red Blood Cells [id number] AP RC Red Blood Cells TRANSFUSED 06/18/24 1157 Red Blood Cells [id number] AP RC Red Blood Cells NOT AVAILABLE Pathology Reviewed date:06/24/2024 09:37:10 PM Interpretation: Performing Lab:[facility], [address] [place] [phone] Notes/Report: Complete Blood Count no Diff Reviewed date:06/20/2024 09:16:35 AM Interpretation: Performing Lab:[facility], [address] [place] [phone] Notes/Report: White Blood Count 4.6 4.8-10.8 X10*3/uL [...] Panel Reviewed date:06/20/2024 09:16:43 AM Interpretation: Performing Lab:[facility], [address] [place] [phone] Notes/Report: Sodium 138 135-145 mmol/L Potassium 3.9 [...] Diff Reviewed date:06/24/2024 09:37:45 PM Interpretation: Performing Lab:[facility], [address] [place] [phone] Notes/Report: White Blood Count 5.7 4.8-10.8 X10*3/uL [...] PROFILE Reviewed date:06/24/2024 09:36:37 PM Interpretation: Performing Lab:[facility], [address] [place] [phone] Notes/Report: Iron 31 45-160 mcg/dL Total Iron Binding Capacity 257 228-428 mcg/dL Percent Iron Saturation 12 15-50 % Unsaturated Iron Binding 226 Ferritin Reviewed date:06/24/2024 09:37:24 PM Interpretation: Performing Lab:[facility], [address] [place] [phone] Notes/Report: Ferritin 45 20-250 ng/mL REASON FOR REFERRAL No Information MEDICATIONS Medication SIG (Take, Route, Frequency, Duration) Notes Start Date End Date Status Iron (Ferrous Sulfate) 325 (65 Fe) MG 1 tablet Orally daily for 30 day(s) 06/29/2024 Active Folic Acid 1 MG TAKE ONE TABLET EVER Y DAY Oral for 30 Active Omeprazole 40 MG Oral for 45 A ctive Thiamine HCl 100 MG TAKE ONE TABLET EVER Y DAY Oral for 30 Active Metoprolol Succinate ER 25 MG Oral for 90 Active Vitamin C 500 MG 1 tablet Orally Once a day for 30 day(s) 06/29/2024 Active SOCIAL HISTORY Tobacco Use: Social History Observation [...] gastric ulcer with hemorrhage (K25.0) Active confirmed 83240952 Problem Colon cancer screening (Z12.11) Active confirmed 451865301 VITAL SIGNS Blood pressure diastolic 00 mm Hg 06/29/2024 Height 5 ft 11 in in 06/29/2024 Blood pressure systolic 00 mm Hg 06/29/2024 Weight 182 lbs 06/29/2024 BMI 25.38 kg/m2 06/29/2024 Encounters Encounter Location Date Provider Diagnosis [facility] [address] [place] [phone] 06/29/2024 Randolph Nogueira Jr Acute gastric ulcer with hemorrhage K25.0 and Colon cancer screening Z12.11 [facility] [address] [place] [phone] 06/22/2024 Randolph Nogueira Jr Acute gastric ulcer with hemorrhage K25.0 [facility] [address] [place] [phone] 06/28/2024 Randolph Nogueira Jr ASSESSMENTS Encounter Date Diagnosis Assessment Notes Treatment Notes Treatment Clinical Notes 06/29/2024 Colon cancer screening (ICD-10 - Z12.11) 06/29/2024 Acute gastric ulcer with hemorrhage (ICD-10 - K25.0) labs to be done in 2 weeks,Endoscopy material was printed 06/22/2024 Acute gastric ulcer with hemorrhage (ICD-10 - K25.0) PLAN OF TREATMENT Pending Test Test Name Order Date IRON + IBC (FE) 06/22/2024 IRON + IBC (FE) 06/29/2024 FERRITIN 06/29/2024 FERRITIN 06/22/2024 CBC w/o DIFF 06/29/2024 CBC w/o DIFF 06/22/2024 Future Test Test Name Order Date UPPER GI ENDOSCOPY 06/29/2024 Next Appt Details Provider Name:Randolphroc wilkerson Jr, 08/26/2024 10:00:00 AM, [address] [facility] , [place], [place], [phone], Insurance Providers Payer Name Payer Address Payer Phone Subscriber Number Group Number Insured Name Patient Relationship to Insured Coverage Start Date Coverage End Date MEDICARE OF [place] [address] [place] [id number] ТАТЬЯНА [place] Self - patient is the insured MEDICAID OF [facility] [address] [place] [address] [id number] ТАТЬЯНА [place] Self - patient is the insured MEDICAL (GENERAL) HISTORY Medical History History ICD Code GI bleed with gastric ulcer 07/12 Surgical History Surgery Date(Month/Year) HERNIA REPAIR BILATERAL AGE 4
[2024-10-12 12:56] VITALS: BMI 25.5
--- NOTE | 2024-10-12 13:42 | HO.ANESPROP2 ---
Documented by User: Marian Merritt NP 10/12/24 13:46 HPI - Anesthesia Eval Consult details Narrative: 79yo M for Upper Endoscopy and Colonoscopy Cardiac optimized. [place]s [facility] [place] Cardiology afib, NSVT Hx ETOH abuse PMFSH Active Problems Active Problems: All Active Problems Preop cardiovascular exam (Acute) Abnormal stress test (Acute) Hospital discharge follow-up (Acute) Atrial fibrillation (Acute) Hemorrhoids (Acute) Past Medical History Medical History Hemorrhoids Daily consumption of alcohol Arthritis Iron deficiency anemia Gastric ulcer Atrial fibrillation with RVR Orthostasis NSVT (nonsustained ventricular tachycardia) Upper gastrointestinal bleed Family History Family history of problems with anesthesia: No Surgical History Surgical History Hx of hernia repair History of esophagogastroduodenoscopy (EGD) History of Problems with Anesthesia: No Social History Social History Household Members: None Housing: Apartment Do you presently have visiting nurse or other home services: No Alcohol intake: former Patient Tobacco Use Status: Former Tobacco user Use of substances other than those prescribed or required for medical reasons: No Are you DNR?: No Advance Directives: No Advance Directives Information Provided: Yes service: No Meds Allergies Allergy/AdvReac Type Severity Reaction Status Date / Time No Known Allergies Allergy Verified 10/14/24 07:08 Home Medications ?Medication ?Instructions ?Recorded ?Confirmed ?Last Taken ?Type acetaminophen 325 mg tablet 650 mg PO Q6H PRN knee pain 07/20/24 10/12/24 Unknown History docusate sodium 100 mg capsule 100 mg PO DAILY 07/20/24 10/12/24 Unknown History ferrous sulfate 325 mg (65 mg 325 mg DAILY 07/20/24 10/12/24 10/07/24 History iron) tablet omeprazole 40 mg capsule,delayed 40 mg PO BID@0630,1630 07/20/24 10/12/24 Unknown History release Exam Height,Weight and Vital Signs: Height 5 ft 11 in Weight 83.007 kg Pertinent Lab Results Pertinent Lab Results: Laboratory Tests 07/25/24 09/13/24 06:58 07:22 WBC 5.5 Hgb 13.1 L Hct 39.1 L Plt Count 143 L Sodium 139 Potassium 4.0 Chloride 107 Carbon Dioxide 26 BUN 10 Creatinine 0.84 Narrative Narrative: Per cardiac note: Echocardiogram 06/20/2024 showed EF 55-60%, basal inferior hypokinetic, mild pulmonary hypertension, left atrium severely dilated, right atrium likely dilated. A Holter monitor done 08/10/2024 for 3 days shows AFib, rate 69, pauses noted ranging 2.5-4 seconds. Nuclear stress test 08/10/2024 shows infarcted basal inferior wall without clear evidence of ischemia. Assessment and Plan Assessment Anesthesia Assessment: Chart Reviewed Final Anesthetic Review Family History of Problems with Anesthesia: No History of Problems with Anesthesia: No Documented by User: Barry Keenan MD 10/14/24 08:13 [facility] Past Medical History Medical History Hemorrhoids Daily consumption of alcohol Arthritis Iron deficiency anemia Gastric ulcer Atrial fibrillation with RVR Orthostasis NSVT (nonsustained ventricular tachycardia) Upper gastrointestinal bleed Surgical History Surgical History Hx of hernia repair History of esophagogastroduodenoscopy (EGD) Social History Social History Household Members: None Housing: Apartment Do you presently have visiting nurse or other home services: No Alcohol intake: former Patient Tobacco Use Status: Former Tobacco user Use of substances other than those prescribed or required for medical reasons: No Are you DNR?: No Advance Directives: No Advance Directives Information Provided: Yes service: No Meds Allergies Allergy/AdvReac Type Severity Reaction Status Date / Time No Known Allergies Allergy Verified 10/14/24 07:08 Home Medications ?Medication ?Instructions ?Recorded ?Confirmed ?Last Taken ?Type acetaminophen 325 mg tablet 650 mg PO Q6H PRN knee pain 07/20/24 10/12/24 Unknown History docusate sodium 100 mg capsule 100 mg PO DAILY 07/20/24 10/12/24 Unknown History ferrous sulfate 325 mg (65 mg 325 mg DAILY 07/20/24 10/12/24 10/07/24 History iron) tablet omeprazole 40 mg capsule,delayed 40 mg PO BID@0630,1630 07/20/24 10/12/24 Unknown History release Exam Airway Mallampati Class: III TM Dist: >3cm Neck ROM: Full Denture: Upper Loose/Missing/Broken Teeth: Lower Assessment and Plan Assessment Anesthesia Assessment: Anesthesia Plan Discussed Final Anesthetic Review NPO: Yes ASA Class: III Final Preanesthetic Review: No Changes in Pt Med Stat, Meds/Allgs Chart Reviewed, Consent Obtained/Reviewed and Anes Risks/Benef Reviewed Patient Risk: Intermediate Procedure Risk: Low Anesthetic Plan Anesthetic Plan: TIVA Disposition: Standard PACU
[2024-10-14 07:09] VITALS: BMI 26.6
[2024-10-14 07:30] VITALS: BP 105/53; PULSE 76; RESP 16; TEMP 36.4; O2SAT 96
[2024-10-14] MEDS: Lactated Ringers 1,000 ML 50 ML IVCONT (07:31)
--- NOTE | 2024-10-14 08:09 | P.HPSUR_ITS ---
Pre-Procedural Eval Section A - 24 Hr Update-Section A only Date of Service: 10/14/24 Section B - Complete if H&P > 30 days Chief Complaint: Acute gastric ulcer with hemorrhage,screening Details of Present Illness: see h&P no changes Relevant Social History: None Present Medications: see Short Stay Collaborative assessment Medical History: No relevant PMH History of Previous Operations: Relevant previous surgery/procedure and date(s) Allergies: Allergies Allergy/AdvReac Type Severity Reaction Status Date / Time No Known Allergies Allergy Verified 10/14/24 07:08 Review of Systems Sugical H&P ROS: Negative: Constitution, Cardiovascular, Respiratory, Layne rological, Psychiatric, Hem-Onc, Allergic/Immunologic, Gastrointestinal, Genitourinary, Musculoskeletal, Integumentary, Endocrine and Eyes/Ears/Nose/Throat Exam Surgical H&P Exam: Normal: HEENT, Normal: Heart, Normal: Lungs, Normal: Extremities, Normal: Abdomen, Normal: Skin and Normal: Neurological Plan Diagnosis/Plan: Unchanged I have reviewed the history and physical and performed a pertinent physical examination on my patient. No changes have occurred unless specified. Time Spent With Patient Time: Total time managing care of this patient today ____ minutes.
[2024-10-14 09:10] VITALS: BP 98/55; PULSE 72; RESP 15; TEMP 36.4; O2SAT 98
[2024-10-14 09:25] VITALS: BP 110/57; PULSE 78; RESP 15; TEMP 36.2; O2SAT 98
--- NOTE | 2024-10-14 10:36 | OP_ITS ---
DATE OF SERVICE: 10/14/2024 SURGEON: Randolph Nogueira MD INDICATIONS: 1. Gastric ulcer with bleeding. 2. Colon cancer screening. PREOPERATIVE DIAGNOSIS: POSTOPERATIVE DIAGNOSIS: PROCEDURE PERFORMED: Upper endoscopy with biopsy, colonoscopy to the terminal ileum with snare polypectomy and biopsy. ESTIMATED BLOOD LOSS: COMPLICATIONS: ANESTHESIA: Monitored anesthesia care. ASSISTANTS: SPECIMENS: DESCRIPTION OF PROCEDURE: A history and physical was performed. The risks and benefits of the procedure were explained to the patient. Informed consent was obtained. The patient was placed in the left lateral decubitus position. The Olympus video gastroscope was introduced into the esophagus, stomach, and duodenum. Examination was performed. The scope was removed he was repositioned for colonoscopy. A digital rectal exam was performed and was found to be normal. The Olympus pediatric video colonoscope was introduced into the rectum and advanced to the cecum. The cecum was identified by transillumination, palpation, and identification of ileocecal valve. Examination was performed. The scope was removed. He tolerated both procedures well and was returned to the recovery area in stable condition. FINDINGS: Upper endoscopy: 1. Esophagus: The esophagus was normal. There was no esophagitis. 2. Stomach: The stomach showed some scarring from his previous peptic ulcer disease. The ulcer was healed. There was no evidence of an active peptic ulcer or any bleeding. Biopsies were obtained from the antrum. 3. Duodenum: The bulb and 2nd portion were normal. Colonoscopy: The terminal ileum was briefly examined and appeared normal. The visualized colonic mucosa was normal. The quality of the prep was good. Polyps were identified and removed as follows. In the right colon was a 10 mm pedunculated polyp, which was removed with a hot snare. A 2nd polyp measuring 5 mm was removed with a hot snare, but was not retrieved. In the rectum was a 6 mm polyp, which was removed with a hot snare and recovered via suction. There was some nodularity to the rectum, which was biopsied. There was sigmoid diverticulosis. IMPRESSION: 1. Normal EGD. 2. Colon polyps. RECOMMENDATION: Follow up the biopsy results. MD GUERITA Pearl/FAUSTOL / [id number]
== END 2024-10-14 09:58 | disposition home or self-care (01) ==
PROVIDERS: Visit Provider Internal Medicine Gastroenterology
PROC: (CPT 45385; principal; 2024-10-14 08:20)
DX: Z12.11 Encounter for screening for malignant neoplasm of colon (principal); D12.2 Benign neoplasm of ascending colon; K62.1 Rectal polyp; K57.30 Diverticulosis of large intestine without perforation or abscess without bleeding; K64.8 Other hemorrhoids; Z87.11 Personal history of peptic ulcer disease; K29.50 Unspecified chronic gastritis without bleeding; B96.81 Helicobacter pylori [H. pylori] as the cause of diseases classified elsewhere; D50.9 Iron deficiency anemia, unspecified; I48.91 Unspecified atrial fibrillation; I47.29 Other ventricular tachycardia; Z79.899 Other long term (current) drug therapy; Z98.890 Other specified postprocedural states; Z87.891 Personal history of nicotine dependence
CPT/HCPCS: 45385; 45380; 43239; 88305; 88313; 88342; J2003; J2704

== ENCOUNTER 2024-11-04 07:40 | Day surgery (SDC) | payer MEDICARE, OTHER, SELFPAY ==
--- OUTSIDE RECORDS SUMMARY | 2024-09-20 07:29 | XMS_ITS ---
Author Organization [facility] Address [address] [place] [address] Care Team Providers Care Clinical Biochemical Geneticist Name Role Phone Cam acosta, [place] Primary Care Prov ider Unavailable Jero Hsieh, Randolph Unavailable [phone] REASON FOR VISIT acute gastric ulcer w/ hemorrh Encounters Encounter Location Date Provider Diagnosis [facility] Outpatient [address] [place] [phone] 08/26/2024 Randolph Nogueira Jr PLAN OF TREATMENT Next Appt Details Provider Name:Randolph wilkerson Jr, 10/14/2024 08:20:00 AM, [address] [place] [address], [phone],
--- OUTSIDE RECORDS SUMMARY | 2024-09-20 07:29 | XMS_ITS | Patient Health Record ---
Author Organization [facility] Address [address] [place] [address] Care Team Providers Care Publisher Assistant Name Role Phone Cam acosta, Kermit Primary Care Prov idetony Nogueira Jr, Randolph Unavailable [phone] ALLERGIES No Known Allergies RESULTS Component Value Reference Range Notes Type and Screen Reviewed date:06/20/2024 09:16:50 AM Interpretation: Performing Lab:[facility], [address] [place] [phone] Notes/Report: Results at Issue Units as of 06/18/24 1158 ... Test View Group: Most Recent HGB HCT Results LABORATORY Date Time Test Result Flag Normal Range 06/18/24 0804 HGB 8.3 L 14.0-18.0 g/dl 06/18/24 0804 HCT 23.7 L 42.0-52.0 % Hgb 7-9 gm na No no Blood Type AP Antibody Screen NEGATIVE Red Blood Cells Reviewed date:06/20/2024 09:16:57 AM Interpretation: Performing Lab:[facility], [address] [place] [phone] Notes/Report: Red Blood Cells [id number] AP RC Red Blood Cells TRANSFUSED 06/18/24 1157 Red Blood Cells [id number] AP RC Red Blood Cells NOT AVAILABLE Pathology Reviewed date:06/24/2024 09:37:10 PM Interpretation: Performing Lab:[facility], [address] [place] [phone] Notes/Report: Complete Blood Count no Diff Reviewed date:06/20/2024 09:16:35 AM Interpretation: Performing Lab:[facility], [address] [place] [phone] Notes/Report: White Blood Count 4.6 4.8-10.8 X10*3/uL [...] Panel Reviewed date:06/20/2024 09:16:43 AM Interpretation: Performing Lab:[facility], [address] [place] [phone] Notes/Report: Sodium 138 135-145 mmol/L Potassium 3.9 [...] Diff Reviewed date:06/24/2024 09:37:45 PM Interpretation: Performing Lab:[facility], [address] [place] [phone] Notes/Report: White Blood Count 5.7 4.8-10.8 X10*3/uL [...] PROFILE Reviewed date:06/24/2024 09:36:37 PM Interpretation: Performing Lab:[facility], [address] [place] [phone] Notes/Report: Iron 31 45-160 mcg/dL Total Iron Binding Capacity 257 228-428 mcg/dL Percent Iron Saturation 12 15-50 % Unsaturated Iron Binding 226 Ferritin Reviewed date:06/24/2024 09:37:24 PM Interpretation: Performing Lab:[facility], [address] [place] [phone] Notes/Report: Ferritin 45 20-250 ng/mL Complete Blood Count Auto Di ff Reviewed date:07/05/2024 03:41:05 PM Interpretation: Performing Lab:[facility], [address] [place] [phone] Notes/Report: White Blood Count 5.7 4.8-10.8 X10*3/uL [...] PROFILE Reviewed date:07/05/2024 03:40:58 PM Interpretation: Performing Lab:[address] [phone] Notes/Report: Iron 103 45-160 mcg/dL Total Iron Binding Capacity 283 228-428 mcg/dL Percent Iron Saturation 36 15-50 % Unsaturated Iron Binding 180 Ferritin Reviewed date:07/05/2024 03:41:16 PM Interpretation: Performing Lab:[address] [phone] Notes/Report: Ferritin 27 20-250 ng/mL REASON FOR [...] Problem Colon cancer screening (Z12.11) Active confirmed 420101826 Problem Acute gastric ulcer with hemorrhage (K25.0) Active confirmed [id number] VITAL SIGNS Blood pressure diastolic 00 mm Hg 06/29/2024 Height 5 ft 11 in in 06/29/2024 Blood pressure systolic 00 mm Hg 06/29/2024 Weight 182 lbs 06/29/2024 BMI 25.38 kg/m2 06/29/2024 Encounters Encounter Location Date Provider Diagnosis [facility] Outpatient [address] [place] [phone] 08/26/2024 Randolph Nogueira Jr [facility] [address] [place] [phone] 06/29/2024 Randolph Nogueira Jr Acute gastric ulcer with hemorrhage K25.0 and Colon cancer screening Z12.11 [facility] [address] [place] [phone] 06/22/2024 Randolph Nogueira Jr Acute gastric ulcer with hemorrhage K25.0 [facility] [address] [place] [phone] 06/28/2024 Randolph Nogueira Jr [facility] [address] [place] [phone] 07/05/2024 Randolph Nogueira Jr [facility] [address] [place] [phone] 07/21/2024 Randolph Nogueira Jr [facility] [address] [place] [phone] 08/12/2024 Randolph Nogueira Jr [facility] [address] [place] [phone] 08/18/2024 Randolph Nogueira Jr [facility] [address] [place] [phone] 08/19/2024 Randolph Nogueira Jr [facility] [address] [place] [phone] 08/19/2024 Randolph Nogueira Jr [facility] [address] [place] [phone] 08/31/2024 Randolph Nogueira Jr ASSESSMENTS Encounter Date [...] Provider Name:Randolph wilkerson Jr, 10/14/2024 08:20:00 AM, [address] [place] [address] , [place], [place], [phone], Insurance Providers Payer Name Payer Address Payer Phone Subscriber Number Group Number Insured Name Patient Relationship to Insured Coverage Start Date Coverage End Date MEDICARE OF [place] [address] [place] [address] [id number] ТА[place]ЯНА [place] Self - patient is the insured MEDICAID OF [facility] [address] [place] [address] [id number] ТАТЬЯНА [place] Self - patient is the insured MEDICAL (GENERAL) HISTORY Medical History History ICD Code GI bleed with gastric ulcer 07/12 Surgical History Surgery Date(Month/Year) HERNIA REPAIR BILATERAL AGE 4
--- OUTSIDE RECORDS SUMMARY | 2024-09-20 07:29 | XMS_ITS | Encounter Summary ---
Author Organization [employer] Address [address] 7t [place] [address] Care Team Providers Care Clinical Review Specialist Name Role Phone Kermit Rangel MD Primary Care Prov ider Reason for Visit * Reason Onset Date Comments FYI 09/15/2024 Encounter Details Date Type Department Care Team ([facility] st Contact Info) Description 09/15/2024 Telephone [facility] [address] [place] [address] Kermit Rangel MD [address] [place], [place] [phone] FYI Social History Tobacco Use Types Packs/Day Years [...] encounter Miscellaneous Notes * Telephone Encounter - Karen Contreras RN - 09/15/2024 1:41 PM EST Routing to provider for review of labs. * Telephone Encounter - Ketan Urrutia - 09/15/2024 10:40 AM EST Tc from Kisha (Visiting Nurse) calling in to report that pt had fallen on Thursday due to Dizziness and pt did pass out and regained consciousness. Kisha states that pt had some labs done andhis Iron level were high and blood levels were low. Kisha wants pt PCP to take a look at labs and contact Kisha at [phone]. documented in this encounter Plan of Treatment Upcoming Encounters Date Type Department Care Team (Late st Contact Info) Description 10/04/2024 10:15 AM EDT Office Visit [facility] [address] [place] [address] Ian Jauregui MD [address] [place] [address] 11/10/2024 8:30 AM EDT Office Visit [facility] [address] [place] [address] Kermit Rangel MD [address] [place] [address] documented as of this encounter Visit Diagnoses Not on filedocumented in this encounter Additional Health Concerns Assessment Noted Time PHQ-9 Depression Total Score: 0 07/08/20 9:15 AM EST documented as of this encounter Care Teams Clinical Review Specialist Relationship Specialty Start Date End Date Kermit Rangel MD [address] [place] [address] PCP - General Internal Medicine 07/11/24 Glenn TOTH 07/28/24 documented as of this encounter
--- OUTSIDE RECORDS SUMMARY | 2024-09-20 07:29 | XMS_ITS | Encounter Summary ---
Author Organization [employer] Address [address] 7[address] [place] [address] Care Team Providers Care Pulp Maker Name Role Phone Kermit Rangel MD Primary [...] Description 10/04/2024 10:15 AM EDT Office Visit [facility] MED & PEDS [address] [place] [address] Ian Jauregui MD [address] [place] [address] 11/10/2024 8:30 AM EDT Office Visit [facility] MED & PED[facility] [address] [place] [address] Kermit Rangel MD [address] [place] [address] documented as of this encounter Visit Diagnoses Not on filedocumented in this encounter Additional Health Concerns Assessment Noted Time PHQ-9 Depression Total Score: 0 07/08/20 9:15 AM EST documented as of this encounter Care Teams Pulp Maker Relationship Specialty Start Date End Date Kermit Rangel MD [address] [place] [address] PCP - General Internal Medicine 07/11/24 Glenn TOTH 07/28/24 documented as of this encounter
--- OUTSIDE RECORDS SUMMARY | 2024-09-20 07:29 | XMS_ITS ---
Author Organization [facility] Address [address] [place] [address] Care Team Providers Care Confidential Secretary Name Role Phone Cam acosta, Kermit Primary [...] Active Encounters Encounter Location Date Provider Diagnosis [facility] [address] [place] [address] 08/19/2024 Randolph Nogueira Jr PLAN OF TREATMENT Next Appt Details Provider Name:Randolph wilkerson Jr, 10/14/2024 08:20:00 AM, [address] [place] [address] , [place], [place], [phone],
--- OUTSIDE RECORDS SUMMARY | 2024-09-20 07:29 | XMS_ITS | Clinical Summary ---
Author Organization [employer] Address [address] [facility] 7t [place] [address] Care Team Providers Care Disposal Worker Name Role Phone Kermit Rangel MD Primary [...] Encounters Date Type Department Care Team Description 09/15/[address] [address] Kermit Rangel MD FYI 09/08/2024 2:15 PM EST Office Visit [facility] MED & PEDS [address] [place] [address] Aletha Waldrop MD Persistent atrial fibrillation (CMS/HCC) (Primary Dx); Preop examination 09/08/2024 Travel 09/06/[address] [address] Kermit Rangel MD Pre op 08/09/2024 10:45 AM EST Office Visit [facility] [address] [place] [address] Ian Jauregui MD Macular seborrheic keratosis (Primary Dx) 08/09/2024 Travel 08/04/2024 10:30 AM EST Office Visit [facility] [address] [place] [address] Kermit Rangel MD Other hemorrhoids (Primary Dx); UGI bleed; Lesion of skin of nose; Persistent atrial fibrillation (CMS/HCC) 08/04/2024 Travel 08/03/2024 Telephone [facility] [address] [place] [address] Kermit Rangel MD Chart Prep 07/29/2024 Telephone [facility] [address] [place] [address] Kermit Rangel MD Appointment Request 07/29/[address] [address] Kermit Rangel MD Appointment Request 07/20/2024 Orders Only GENERIC EXTERNAL DATA DEPARTMENT Provider, Generic External Data 07/12/2024 9:30 AM EST Office Visit [facility] [address] [place] [address] Kermit Rangel MD Iron deficiency anemia due to chronic blood loss (Primary Dx); Other hemorrhoids 07/12/2024 Travel 07/11/2024 Telephone [facility] [address] [place] [address] Kermit Rangel MD 07/08/2024 9:45 AM EST Telemedicine [facility] [address] [place] [address] Kermit Rangel MD Encounter to establish care (Primary Dx); UGI bleed; Lesion of skin of nose 07/08/2024 Travel 07/07/2024 Telephone [facility] [address] [place] [address] Jennifer Camarena MA chart prep 06/22/2024 Telephone [facility] [address] [place] [address] Chris Soto MD Appointment Request from Last [...] Description 10/04/2024 10:15 AM EDT Office Visit [facility] [address] [place] [address] Ian Jauregui MD [address] [place] [address] 11/10/2024 8:30 AM EDT Office Visit [facility] [address] [place] [address] Kermit Rangel MD [address] [place] [address] Health Maintenance Due Date Last Done Comments Alcohol/Substance Use Screening 1957 DTaP/Tdap/Td Vaccines (1 - Tdap) 1963 Pneumococcal Vaccine: 50+ Years (1 of 1 - PCV) 1994 Zoster Vaccines (1 of 2) 1994 RSV Patients and Patients Aged 60 years or older (1 - 1-dose 75+ series) 2019 COVID-19 Vaccine ( - 2023-2 5 season) 2024 2021, 09/27/2020, 08/31/2020 Influenza Vaccine (#1) 2024 Depression Screening 07/08/2025 07/08/2024, 07/08/2024 Tobacco Screening 07/08/2025 07/08/2024 SDOH Screening 09/08/2025 09/08/2024 Lipid Panel 09/13/2029 09/13/2024 HIB Vaccines Aged Out No longer eligi [...] Procedure Name Priority Date/Time Associated Diagnosis Comments DIGOXIN Routine 09/13/2024 7:22 AM EST LIPID PANEL, STANDARD Routine 09/13/2024 7:22 AM EST CBC WITH AUTO DIFFERENTIAL Routine 09/13/2024 7:22 AM EST VITAMIN B12/FOLATE, SERUM PANEL Routine 09/13/2024 7:22 AM EST Iron deficiency anemia due to chronic blood loss IRON AND TOTAL IRON BINDING CAPACITY Routine 09/13/2024 7:22 AM EST Iron deficiency anemia due to chronic blood loss STRESS TEST WITH MYOCARDIAL PERFUSION Routine 08/10/2024 [...] EST from Last 3 Months Results * Vitamin B12 (Cobalamin) and Folate Panel, Serum (09/13/2024 7:22 AM EST) Vitamin B12 334 200 - 900 pg/mL [facility] Comment:NORMAL 200-900 PG/ML INDETERMINATE 160-199 PG/ML DEFICIENT < 160 PG/ML Folate 10.1 > or = 4.0 ng/mL [facility] Comment:Reference Values:> o r = 4.0 ng/mL< 4.0 ng/mL suggests folate deficiency Methotrexate, aminopterin and folinic acid(leucovorin) are chemotherapeutic agents whose molecularstructures are similar to folate; therefore, the Architectfolate assay cannot be used for patients using these drugs. Blood Venous blood specimen / Unknown 09/13/2024 7:22 AM EST 09/13/2024 7:22 AM EST us Kermit Tabares MD LAB BLOOD ORDERABL ES Final Result [facility] [address] [place] [address] [phone] * (ABNORMAL) CBC auto differential (09/13/2024 7:22 AM EST) Only the most recent of3 resultswithin the time period is included. White Blood Count 5.5 4.8 - 10.8 X10*3/uL [facility] Red Blood Count 4.52(L) 4.60 - 5.80 X10*6/uL [facility] Hemoglobin 13.1(L) 14.0 - 18.0 g/dl [facility] Hematocrit 39.1(L) 42.0 - 52.0 % [facility] Mean Corpuscular Volume 86.5 80.0 - 98.0 fL [facility] Mean Corpuscular Hemoglobin 29.0 27.0 - 33.0 pg [facility] Mean Corpuscular HGB Conc 33.5 31.0 - 36.0 g/dl [facility] Red Cell Distribution Width 16.0 11.0 - 16.0 % [facility] Platelet Count 143(L) 160 - 400 X10*3/uL [facility] Mean Platelet Volume 10.3 9.4 - 12.4 fL [facility] Neutrophils Percent Auto 71.1 45 - 73 % [facility] Imm Gran Pct Auto 0.5(H) 0.0 - 0.4 % [facility] Lymphocytes Percent Auto 19.3(L) 20 - 40 % [facility] Monocytes Percent Auto 7.1 2 - 11 % [facility] Eosinophils Percent Auto 1.3 0 - 4 % [facility] Basophils Percent Auto 0.7 0 - 2 % [facility] NRBC Pct Auto 0.0 0.0 - 0.2 /100WBC [facility] Neutrophils Absolute Auto 3.9 2.0 - 8.3 x10*3/uL [facility] Imm Gran Abs Auto 0.03 0.00 - 0.03 X10*3/uL [facility] Lymphocytes Absolute Auto 1.1(L) 1.2 - 4.9 X10*3/uL [facility] Monocytes Absolute Auto 0.4 0.1 - 1.2 X10*3/uL [facility] Eosinophils Absolute Auto 0.1 0.0 - 0.4 X10*3/uL [facility] Basophils Absolute Auto 0.0 0.0 - 0.2 X10*3/uL [facility] NRBC Abs Auto 0.000 0.0 - 0.012 X10*3/uL [facility] 09/13/2024 7:22 AM EST 09/13/2024 7:22 AM EST us Generic External Data Provider LAB BLOOD ORDERAB LES Final Result [facility] [address] [place] [address] [phone] * (ABNORMAL) Iron And Total Iron Binding Capacity (09/13/2024 7:22 AM EST) Iron 180(H) 45 - 160 mcg/dL [facility] Total Iron Binding Capacity 289 228 - 428 mcg/dL [facility] Percent Iron Saturation 62(H) 15 - 50 % [facility] Unsaturated Iron Binding 109 ug/dL [facility] Blood Venous blood specimen / Unknown 09/13/2024 7:22 AM EST 09/13/2024 7:22 AM EST us Kermit Tabares MD LAB BLOOD ORDERABL ES Final Result Performing Organization Address [facility]/ZIP Co de Phone Number [facility] [address] [place] [address] [phone] * Digoxin (09/13/2024 7:22 AM EST) Pathologist [facility] Digoxin 1.6 0.8 - 2.0 ng/mL [facility] Comment:Assay modified to mi nimize interference from aldosteroneantagonists (e.g. spironolactone and canrenone). 09/13/2024 7:22 AM EST 09/13/2024 7:22 AM EST us Generic External Data Provider LAB BLOOD ORDERAB LES Final Result Performing Organization Address [facility] Co de Phone Number [facility] [address] [place] [phone] * Lipid Panel, Standard (09/13/2024 7:22 AM EST) Triglycerides 90 <150 mg/dL [facility] Comment:Desirable Triglyceri de: less than 150 mg/dLBorderline High Triglyceride 150-199 mg/dLHigh Triglyceride: 200-499 mg/dLVery High Triglyceride: greater than or equal to 5OO mg/dL Cholesterol 134 <200 mg/dL [facility] Comment:Desirable Cholestero l: less than 200 mg/dLBorderline High Cholesterol: 200-239 mg/dLHigh Cholesterol: greater than 239 mg/dL LDL Cholesterol Calculated 66 <100 mg/dL [facility] Comment:Desirable LDL: less than 100 mg/dLNear Optimal/Above Optimal LDL: 110- 129 mg/dLBorderline High LDL: 130-159 mg/dLHigh LDL: 160-189 mg/dLVery High LDL: greater than or equal to 190 mg/dL HDL Cholesterol 50 >40 mg/dL [facility] Comment:Desirable HDL: great er than 40 mg/dL Note: This HDL assay may give artificially low results in patients with liver disease. 09/13/2024 7:22 AM EST 09/13/2024 7:22 AM EST us Generic External Data Provider LAB BLOOD ORDERAB LES Final Result [facility] [address] [place] [address] [phone] * Stress test with myocardial perfusion (08/10/2024 10:06 AM EST) 08/10/2024 10:0 6 AM EST Narrative [facility] - 08/12/2024 1:05 PM EST ? [facility] ?[address] ?[place] [address] ?Nuclear Medicine Report ? Signed ? Patient: Geovanni Nick ?MR#: [id number] ?? [id number] ? : 1945 ?Acct:[id number] ? Age/Sex: 79 / M ?ADM Date: 08/10/24 ? Loc: HO.CARD ? Attending Dr: Ros FONTAINE ? Ordering Physician: Ros Cline ?? Date of Service: 08/10/24 ?? Procedure(s): NM cardiolite stress test ?? Accession Number(s): [id number] ? cc: Kermit Rangel MD; Ros Cline ? Lexiscan Myocardial perfusion study ? Indication: ?? Ventricular tachycardia ? Technique: ? The patient was brought in for a Lexiscan perfusion study on July and was injected 0.4 mg of Lexiscan [...] on EKG. ? Electronically signed by: ??Enrique Kassidy MD ??08/12/2024 01:03 PM EST RP ? Dictated By: ?Kassidy,Enrique MD ? Signed By: ?<Electronically signed by EnriqueGonsalves, MD in OV> ?08/12/24 1303 ? DD/ 1006 ? TD/TT: 08/12/24 0815 ? Certified Pest Control Technician: ? Procedure Note Viry, Image - 08/12/[address] [address] Nuclear Medicine Report Signed Patient: Geovanni Nick LMR#: [id number] : 4Acct:[id number] Age/Sex: 79 / MADM Date: 08/10/24 Loc: HO.[facility] Attending Dr: Ros FONTAINE Ordering Physician: Ros Cline Date of Service: 08/10/24 Procedure(s): NM cardiolite stress test Accession Number(s): [id number] cc: Kermit Rangel MD; Ros Cline Lexiscan [...] 08/12/24 1303 DD/ 1006 TD/TT: 08/12/24 0815 Certified Pest Control Technician: [facility] External Provider CV STRE SS PROCEDURES Final Result Performing Organization Address City/State/[facility] Co de Phone Number [facility] [address] [place] [phone] * Cryotherapy, skin lesion (08/09/2024 11:04 AM EST) Narrative Ian Jauregui MD - 08/09/2024 11:04 AM EST Ian [...] No ?Instructions and paperwork completed: Yes ?? Backus protocol: ??Procedure explained and questions answered to [...] EST Narrative 07/24/2024 12:49 PM EST ? [facility] ?[address] ?[place] [address] ? CT Scan Report ? Signed ? Patient: Sandoval,Geovanni L ?MR#: [id number] ?? [id number] ? : 1945 ?Acct:[id number] ? Age/Sex: 79 / M ?ADM Date: 07/20/24 ? Loc: HO.[facility] ?486-1 ? Attending Dr: Najma Israel ENDO TECH ? Ordering Physician: Najma Israel NP ?? Date of Service: 07/24/24 ?? Procedure(s): CT head/brain wo IV con ?? Accession Number(s): [id number] ? cc: Kermit Rangel MD; Najma Israel NP ? Report Number: ?? [id number]: Total DLP = ??670.00 mGy-cm ? CLINICAL [...] DD/ 1247 ? TD/TT: 07/24/24 1247 ? Certified Pest Control Technician: ? Procedure Note Donrosalbater, Image - 07/24/[address] [place] [address] [address] Scan Report Signed Patient: Geovanni Nick LMR#: [id number] : 4Acct:[id number] Age/Sex: 79 / MADM Date: 07/20/24 Loc: [facility] 486-[address]: Najma Israel NP Ordering Physician: Najma Israel NP Date of Service: 07/24/24 Procedure(s): CT head/brain wo IV con Accession Number(s): [id number] cc: Kermit Rangel MD; Najma Israel NP Report Number: [id number]: Total DLP = 670.00 mGy-cm CLINICAL HISTORY: [...] 07/24/24 1248 DD/ 1247 TD/TT: 07/24/24 1247 Certified Pest Control Technician: [facility] External Provider IMG CT PROCEDURES Edited Result - Final * XR Chest 1 View (07/24/2024 10:32 AM EST) Anatomical Region Laterality Modality Chest Radiographic Lizeth ging 07/24/2024 10:3 2 AM EST Narrative 07/24/2024 10:33 AM EST ? [facility] ?[address] ?[place] [address] ?XRay Report ? Signed ? Patient: Geovanni Nick ?MR#: [id number] ?? [id number] ? : 1945 ?Acct:[id number] ? Age/Sex: 79 / M ?ADM Date: 07/20/24 ? Loc: HO.[facility] ?486-1 ? Attending Dr: Najma Israel ENDO TECH ? Ordering Physician: Najma Israel NP ?? Date of Service: 07/24/24 ?? Procedure(s): XR chest 1V ?? Accession Number(s): [id number] ? cc: Kermit Rangel MD; Najma Israel ENDO TECH ? CLINICAL HISTORY: sob ? 1 view [...] DD/ 1032 ? TD/TT: 07/24/24 1032 ? Certified Pest Control Technician: ? Procedure Note Donnenitainterpreter, Image - 07/24/[address] [address] XRay Report Signed Patient: Geovanni Nick LMR#: [id number] : 4Acct:[id number] Age/Sex: 79 / MADM Date: 07/20/24 Loc: [facility] 486-[address]: Najma Israel NP Ordering Physician: Najma Israel NP Date of Service: 07/24/24 Procedure(s): XR chest 1V Accession Number(s): [id number] cc: Kermit Rangel MD; Najma Israel NP [...] 07/24/24 1032 DD/ 1032 TD/TT: 07/24/24 1032 Certified Pest Control Technician: [facility] External Provider IMG XR PROCEDURES Edited Result - Final * Type and screen (07/20/2024 12:00 PM EST) Blood Type AP [facility] Antibody Screen NEGATIVE [facility] 07/20/2024 12:0 0 PM EST 07/20/2024 12:04 PM EST Generic External Data Provider LAB BLOOD BANK TE ST ORDERABLES Final Result Performing Organization Address [facility] Co de Phone Number [facility] [address] [place] [phone] * High Sensitivity Troponin I (07/20/2024 11:46 AM EST) [facility] TROPONIN I HIGH SENSITIVITY 6.0 <3.5 - 35.0 ng/L [facility] Comment:The Han high sens itivity Troponin-I results should beused in conjunction with other diagnostic information suchas ECG, clinical observations and information, and patientsymptoms to aid in the diagnosis of [place]. 07/20/2024 11:4 6 AM EST 07/20/2024 3:28 PM EST Generic External Data Provider LAB BLOOD ORDERAB LES Final Result Performing Organization Address [facility] de Phone Number [facility] [address] [place] [phone] * (ABNORMAL) Prothrombin Time-INR (07/20/2024 11:46 AM EST) Pathologist [facility] Prothrombin Time 13.8(H) 10.9 - 12.4 SEC [facility] INTERNATIONAL NORM RATIO 1.2(H) 0.9 - 1.1 [facility] Comment:INTERNATIONAL NORMAL IZED RATIO (INR) REFERENCE [...] ORDERAB LES Final Result Performing Organization Address [facility] de Phone Number [facility] [address] [place] [phone] * Magnesium (07/20/2024 11:46 AM EST) [facility] Magnesium 2.1 1.6 - 2.6 mg/dL [facility] 07/20/2024 11:4 6 AM EST 07/20/2024 12:02 PM EST Generic External Data Provider LAB BLOOD ORDERAB LES Final Result Performing Organization Address [facility] de Phone Number [facility] [address] [place] [phone] * Lipase (07/20/2024 11:46 AM EST) [facility] Lipase 35 8 - 78 U/L [facility] 07/20/2024 11:4 6 AM EST 07/20/2024 12:02 PM EST Generic External Data Provider LAB BLOOD ORDERAB LES Final Result Performing Organization Address [facility] de Phone Number [facility] [address] [place] [phone] * (ABNORMAL) Comprehensive Metabolic Panel (07/20/2024 11:46 AM EST) Pathologist [facility] Sodium 143 135 - 145 mmol/L [facility] Potassium 3.7 3.3 - 5.1 mmol/L [facility] Chloride 111(H) 96 - 108 mmol/L [facility] Carbon Dioxide 25 22 - 29 mmol/L [facility] Anion Gap 11(L) 12 - 20 [facility] Urea Nitrogen (BUN) 10 9 - 16 mg/dL [facility] Creatinine, Serum 1.07 0.5 - 1.4 mg/dL [facility] Creatinine Clr Calc Pharmacy 58.6 [facility] Comment:eGFR (calculated fro m the MDRD study equation) and eCrCl(calculated from the Cockcroft-Gault equation) are based ondifferent parameters and may not yield comparable results.If eCrCl result is absurd, please check patient'sheight/weight. Estimated Glomerular Filt Rate >60 [facility] Comment:Chronic Kidney Disea se: Estimated GFR < 60 mL/min/[id number] Kidney Disease: Estimated GFR < 15 mL/min/1.73m2 Glucose 101 60 - 115 mg/dL [facility] Calcium 7.7(L) 8.4 - 10.2 mg/dL [facility] Bilirubin, Total 0.6 0.0 - 1.0 mg/dL [facility] Aspartate Amino Transferase 17 5 - 37 U/L [facility] Alanine Aminotransferase 13 0 - 40 U/L [facility] Total Protein 5.7(L) 6.5 - 8.0 g/dL [facility] Albumin Level 3.2(L) 3.5 - 5.0 g/dL [facility] Alkaline Phosphatase 86 39 - 117 U/L [facility] 07/20/2024 11:4 6 AM EST 07/20/2024 12:02 PM EST us Generic External Data Provider LAB BLOOD ORDERAB LES Final Result [facility] [address] [place] [phone] [phone] from Last 3 Months Insurance [facility] STANDARD MEDICARE Care Teams Disposal Worker Relationship Specialty Start Date End Date Kermit Rangel MD [address] [place] [phone] PCP - General Internal Medicine 07/11/24 Glenn TOTH 07/28/24
--- OUTSIDE RECORDS SUMMARY | 2024-09-20 07:30 | XMS_ITS | Encounter Summary ---
Author Organization [employer] Address [address] [facility] [address] [address] [place] [address] Care Team Providers Care Mannequin Refinisher Name Role Phone Kermit Rangel MD Primary Care Prov ider Reason for Visit * Reason Comments Pre-op Exam Encounter Details Date Type Department Care Team ([facility] Contact Info) Description 09/08/2024 2:15 PM EST Office Visit [facility] [address] [place], [place] [phone] Aletha Waldrop MD [address] [place] [address] Persistent atrial fibrillation (CMS/HCC) (Primary Dx); Preop [...] Description 10/04/2024 10:15 AM EDT Office Visit [facility] [address] [place] [address] Ian Jauregui MD [address] [place] [address] 11/10/2024 8:30 AM EDT Office Visit [facility] [address] [place] [address] eKrmit Rangel MD [address] [place] [address] documented as of this encounter Visit Diagnoses Diagnosis Persistent atrial fibrillation (CMS/HCC)- Primary Atrial fibrillation Preop examination Unspecified pre-operative examination documented in this encounter Additional Health Concerns Assessment Noted Time PHQ-9 Depression Total Score: 0 07/08/20 9:15 AM EST documented as of this encounter Care Teams Mannequin Refinisher Relationship Specialty Start Date End Date Kermit Rangel MD [address] [place] [phone] PCP - General Internal Medicine 07/11/24 Glenn TOTH 07/28/24 documented as of this encounter
--- OUTSIDE RECORDS SUMMARY | 2024-09-20 07:30 | XMS_ITS | Encounter Summary ---
Author Organization [employer] Address [address] [facility] [address] 7t [place] [address] Care Team Providers Care Optometrist Owner Name Role Phone Kermit Rangel MD Primary Care Prov ider Reason for Visit * Reason Onset Date Comments Pre op 09/06/2024 Encounter Details Date Type Department Care Team ([facility] st Contact Info) Description 09/06/2024 Telephone [facility] [address] [place] [address] Kermit Rangel MD [address] [place], [place] [phone] Pre op Social History Tobacco Use Types [...] Chua Facility name: [facility] Surgeon's office number: [phone] Surgeon's office fax number: [phone] Contact name (person you spoke with): Aishwarya Last office note from surgeon requested: No Contact Aishwarya at [phone] Est 368 Send Message to Shyla Witt and Chapin Flowers documented in this encounter Plan of Treatment Upcoming Encounters Date Type Department Care Team ([facility] st Contact Info) Description 10/04/2024 10:15 AM EDT Office Visit [facility] [address] [place] [address] Ian Jauregui MD [address] [place] [address] 11/10/2024 8:30 AM EDT Office Visit [facility] [address] [place] [address] Kermit Rangel MD [address] [place] [address] documented as of this encounter Visit Diagnoses Not on filedocumented in this encounter Additional Health Concerns Assessment Noted Time PHQ-9 Depression Total Score: 0 07/08/20 9:15 AM EST documented as of this encounter Care Teams Optometrist Owner Relationship Specialty Start Date End Date Kermit Rangel MD [address] [place] [address] PCP - General Internal Medicine 07/11/24 [place] TOTH 07/28/24 documented as of this encounter
--- OUTSIDE RECORDS SUMMARY | 2024-09-20 07:30 | XMS_ITS | Encounter Summary ---
Author Organization [employer] Address [address] [facility] 7t [place] [address] Care Team Providers Care Crossbow Maker Name Role Phone Kermit Rangel MD Primary Care Prov ider Encounter Details Date Type Department Care Team ([facility] Contact Info) Description 07/11/2024 Telephone [facility] [address] [place] [address] Kermit Rangel MD [address] [place], [place] [phone] Social History Tobacco Use Types Packs/Day Years [...] Upcoming Encounters Date Type Department Care Team ([facility] Contact Info) Description 10/04/2024 10:15 AM EDT Office Visit [facility] [address] [place] [address] Ian Jauregui MD [address] [place] [address] 11/10/2024 8:30 AM EDT Office Visit [facility] [address] [place] [address] Kermit Rangel MD [address] [place] [address] documented as of this encounter Visit Diagnoses Not on filedocumented in this encounter Additional Health Concerns Assessment Noted Time PHQ-9 Depression Total Score: 0 07/08/20 9:15 AM EST documented as of this encounter Care Teams Crossbow Maker Relationship Specialty Start Date End Date Kermit Rangel MD [address] [place] [address] PCP - General Internal Medicine 07/11/24 [place] TOTH 07/28/24 documented as of this encounter
--- OUTSIDE RECORDS SUMMARY | 2024-09-20 07:30 | XMS_ITS | Encounter Summary ---
Author Organization [employer] Address 75 [facility] 7t [place] [address] Care Team Providers Care Safety Teacher Name Role Phone Kermit Rangel MD Primary Care Prov ider Reason for Visit * Reason Onset Date Comments Appointment Request 07/29/2024 Encounter Details Date Type Department Care Team ([facility] st Contact Info) Description 07/29/2024 Telephone [facility] [address] [place] [address] Kermit Rangel MD [address] [place], [place] [phone] Appointment Request Social History Tobacco Use Types [...] for that day if theres any availability. [phone] documented in this encounter Plan of Treatment Upcoming Encounters Date Type Department Care Team (Late st Contact Info) Description 10/04/2024 10:15 AM EDT Office Visit [facility] PEDS [address] [place] [address] Ian Jauregui MD [address] [place] [address] 11/10/2024 8:30 AM EDT Office Visit [facility]S [address] [place] [address] Kermit Rangel MD [address] [place] [address] documented as of this encounter Visit Diagnoses Not on filedocumented in this encounter Additional Health Concerns Assessment Noted Time PHQ-9 Depression Total Score: 0 07/08/20 9:15 AM EST documented as of this encounter Care Teams Safety Teacher Relationship Specialty Start Date End Date Kermit Rangel MD [address] [place] [phone] PCP - General Internal Medicine 07/11/24 [place] TOTH 07/28/24 documented as of this encounter
--- OUTSIDE RECORDS SUMMARY | 2024-09-20 07:30 | XMS_ITS ---
Author Organization [facility] Address [address] [place] [address] Care Team Providers Care Coding Spec Name Role Phone Cam acosta, [place] Primary Care Prov ider Unavailable Jero Hsieh, Randolph Unavailable REASON FOR VISIT FYI Encounters Encounter Location Date Provider Diagnosis [facility] [address] [place] [address] 08/31/2024 [place] Nogueira Jr PLAN OF TREATMENT Next Appt Details Provider Name:Randolph wilkerson Jr, 10/14/2024 08:20:00 AM, [address] [place] [address] , [place], [place], [phone],
[2024-11-02 08:27] VITALS: BMI 26.4
--- NOTE | 2024-11-03 09:56 | MHC.SHP ---
Pre-Procedural Eval Section A - 24 Hr Update-Section A only Date of Service: 11/03/24 The patient is an INPATIENT: No Changes since office visit: No Cold of Flu in the past 2 weeks, No New Medical Problems, No Changes in Medication and No Patient answered all questions Section B - Complete if H&P > 30 days Chief Complaint: Other hemorrhoids Allergies: Allergies Allergy/AdvReac Type Severity Reaction Status Date / Time No Known Allergies Allergy Verified 10/14/24 07:08 Review of Systems Sugical H&P ROS: Negative: Constitution, Cardiovascular, Respiratory, Neurological, Psychiatric, Hem-Onc, Allergic/Immunologic, Gastrointestinal, Genitourinary, Musculoskeletal, Integumentary, Endocrine and Eyes/Ears/Nose/Throat Exam Surgical H&P Exam: Normal: HEENT, Normal: Heart, Normal: Lungs, Normal: Extremities, Normal: Abdomen, Normal: Skin and Normal: Neurological Plan I have reviewed the history and physical and performed a pertinent physical examination on my patient. No changes have occurred unless specified. Time Spent With Patient Time: Total time managing care of this patient today ____ minutes.
--- NOTE | 2024-11-03 10:15 | P.CONAN_ITS ---
Documented by User: Marian Merritt NP 11/03/24 10:15 HPI - Anesthesia Eval Consult details Narrative: 79yo M for Hemorrhoidectomy s/p Upper Endoscopy and Colonoscopy 09/2024 with TIVA Cardiac optimized prior to endos. Follows [facility] [place] Cardiology afib, NSVT Hx ETOH abuse PMFSH Active Problems Active Problems: All Active Problems Preop cardiovascular exam (Acute) Abnormal stress test (Acute) Hospital discharge follow-up (Acute) Atrial fibrillation (Acute) Hemorrhoids (Acute) Past Medical History Medical History Hemorrhoids Daily consumption of alcohol Arthritis Iron deficiency anemia Gastric ulcer Atrial fibrillation with RVR Orthostasis NSVT (nonsustained ventricular tachycardia) Upper gastrointestinal bleed Family History Family history of problems with anesthesia: No Surgical History Surgical History Hx of hernia repair History of esophagogastroduodenoscopy (EGD) History of Problems with Anesthesia: No Social History Social History Household Members: None Housing: Apartment Do you presently have visiting nurse or other home services: No Alcohol intake: former Patient Tobacco Use Status: Former Tobacco user Have you been hit, kicked, punched, or otherwise hurt by someone within the past year? If so, by whom?: No Are you DNR?: No Advance Directives: No Advance Directives Information Provided: Yes service: No Meds Allergies Allergy/AdvReac Type Severity Reaction Status Date / Time No Known Allergies Allergy Verified 10/14/24 07:08 Active Medications: Current Medications Cefazolin Sodium/Dextrose (Ancef) 2 gm in 50 mls @ 100 mls/hr IV PREOP ONE Stop: 11/03/24 10:25 Home Medications ?Medication ?Instructions ?Recorded ?Confirmed ?Last Taken ?Type acetaminophen 325 mg tablet 650 mg PO Q6H PRN knee pain 07/20/24 11/04/24 11/03/24 History docusate sodium 100 mg capsule 100 mg PO DAILY 07/20/24 11/04/24 11/03/24 History ferrous sulfate 325 mg (65 mg 325 mg DAILY 07/20/24 11/04/24 11/03/24 History iron) tablet omeprazole 40 mg capsule,delayed 40 mg PO BID@0630,1630 07/20/24 11/04/24 11/03/24 History release Exam Height,Weight and Vital Signs: Height 5 ft 11 in Weight 85.729 kg Pertinent Lab Results Pertinent Lab Results: Laboratory Tests 07/25/24 09/13/24 06:58 07:22 WBC 5.5 Hgb 13.1 L Hct 39.1 L Plt Count 143 L Sodium 139 Potassium 4.0 Chloride 107 Carbon Dioxide 26 BUN 10 Creatinine 0.84 Narrative Narrative: Per cardiac note: Echocardiogram 06/20/2024 showed EF 55-60%, basal inferior hypokinetic, mild pulmonary hypertension, left atrium severely dilated, right atrium likely dilated. A Holter monitor done 08/10/2024 for 3 days shows AFib, rate 69, pauses noted ranging 2.5-4 seconds. Nuclear stress test 08/10/2024 shows infarcted basal inferior wall without clear evidence of ischemia. Assessment and Plan Assessment Anesthesia Assessment: Chart Reviewed Final Anesthetic Review Family History of Problems with Anesthesia: No History of Problems with Anesthesia: No Documented by User: Bernice Palomino MD 11/04/24 09:46 [facility] Past Medical History Medical History Hemorrhoids Daily consumption of alcohol Arthritis Iron deficiency anemia Gastric ulcer Atrial fibrillation with RVR Orthostasis NSVT (nonsustained ventricular tachycardia) Upper gastrointestinal bleed Surgical History Surgical History Hx of hernia repair History of esophagogastroduodenoscopy (EGD) Social History Social History Household Members: None Housing: Apartment Do you presently have visiting nurse or other home services: No Alcohol intake: former Patient Tobacco Use Status: Former Tobacco user Have you been hit, kicked, punched, or otherwise hurt by someone within the past year? If so, by whom?: No Are you DNR?: No Advance Directives: No Advance Directives Information Provided: Yes service: No Meds Allergies Allergy/AdvReac Type Severity Reaction Status Date / Time No Known Allergies Allergy Verified 10/14/24 07:08 Home Medications ?Medication ?Instructions ?Recorded ?Confirmed ?Last Taken ?Type acetaminophen 325 mg tablet 650 mg PO Q6H PRN knee pain 07/20/24 11/04/24 11/03/24 History docusate sodium 100 mg capsule 100 mg PO DAILY 07/20/24 11/04/24 11/03/24 History ferrous sulfate 325 mg (65 mg 325 mg DAILY 07/20/24 11/04/24 11/03/24 History iron) tablet omeprazole 40 mg capsule,delayed 40 mg PO BID@0630,1630 07/20/24 11/04/24 11/03/24 History release Exam Airway Mallampati Class: II (edentulous) TM Dist: >3cm Neck ROM: Full Loose/Missing/Broken Teeth: Yes, Upper and Lower Heart: RRR Lungs: CTA Assessment and Plan Assessment Anesthesia Assessment: Anesthesia Plan Discussed Final Anesthetic Review NPO: Yes ASA Class: III Final Preanesthetic Review: Meds/Allgs Chart Reviewed, Consent Obtained/Reviewed and Anes Risks/Benef Reviewed Patient Risk: Intermediate Procedure Risk: Low Anesthetic Plan Anesthetic Plan: GA Disposition: Standard PACU
[2024-11-04] VITALS (7 sets, daily range): BP systolic 114–137; BP diastolic 67–83; PULSE 68–96; RESP 16–20; TEMP 36.1–36.4; O2SAT 96–99; BMI 26.8
[2024-11-04] MEDS: Lactated Ringers 1,000 ML 50 ML IVCONT (08:33)
[2024-11-04] MEDS: ceFAZolin Sodium/Dextrose,Iso 2 GM/50 ML PIGGYBACK IV (09:55)
--- NOTE | 2024-11-04 10:30 | P.OP_ITS ---
Operative Note Operative Note Date of Service: 11/04/24 Narrative: Preoperative diagnosis: [] Large symptomatic bleeding hemorrhoids Postop diagnosis: [] The same Procedure [] hemorrhoidectomy Surgeon: [] [employer] Assistant: [] Type of Anesthesia: [] General Indication for surgery: [] Huge hemorrhoids , both internal and external, at the 3, 7, 11:00 positions lithotomy. No other gross intraluminal pathology demonstrated Findings: Patient brought to the operating room, placed on operative table supine position, after an adequate level of general anesthesia was induced, patient was placed in lithotomy position, rectal exam performed with findings as noted above. Anorectal area was draped in usual sterile fashion. Each hemorrhoidal area was sequentially grasped, and double firing of ligature transected. Specimens sent to pathology. The upper outer left quadrant r ecorded over and over number 2-0 chromic suture because of the large hemorrhoidal base. Wound was irrigated, secured hemostasis, infiltrated 0.5% Marcaine/1% lidocaine, Gelfoam plug with bupivacaine placed followed by sterile dressing and mesh panties. Sponge, needle, and instrument counts were reported correct. Patient tolerated the procedure well and emerged from anesthesia stable condition. EBL minimal
== END 2024-11-04 11:20 | disposition home or self-care (01) ==
PROVIDERS: Visit Provider Surgery
PROC: (CPT 46946; principal; 2024-11-04 09:40)
DX: K64.8 Other hemorrhoids (principal); K64.4 Residual hemorrhoidal skin tags; I48.91 Unspecified atrial fibrillation; I47.29 Other ventricular tachycardia; Z79.01 Long term (current) use of anticoagulants; D50.9 Iron deficiency anemia, unspecified; K25.9 Gastric ulcer, unspecified as acute or chronic, without hemorrhage or perforation; Z79.899 Other long term (current) drug therapy; F10.91 Alcohol use, unspecified, in remission
CPT/HCPCS: 46946; 88304; J0690; J2003; J2704; J2795; J3010

== ENCOUNTER → 2024-11-04 07:40 | Outpatient (BNV) | payer MEDICARE, SELFPAY | PROVIDERS: Visit Provider Surgery | DX: K64.8 Other hemorrhoids (principal) | CPT/HCPCS: 46260 ==

== ENCOUNTER 2024-11-08 07:45 | Emergency (ER) | payer MEDICARE, OTHER, SELFPAY ==
--- NOTE | 2024-11-08 | ECG_ITS ---
Test Reason : Dizziness Blood Pressure : */* mmHG Vent. Rate : 72 BPM Atrial Rate : * BPM P-R Int : * ms QRS Dur : 106 ms QT Int : 364 ms P-R-T Axes : * -35 -16 degrees QTcB Int : 398 ms Atrial fibrillation Left axis deviation Incomplete right bundle branch block Abnormal ECG When compared with ECG of 20-Jul-2024 15:07, Decrease in ventricular rate Referred By: Generic ED Physician Electronically Signed By: JHOANA CARRENO
[2024-11-08 08:01] VITALS: BP 117/78; PULSE 87; RESP 16; TEMP 36.4; O2SAT 94; BMI 26.5
[2024-11-08 08:09] LABS: MANUAL DIFF FLAG NO
[2024-11-08 08:11] LABS: Basophils Absolute Auto 0.1 X10*3/uL (0.0-0.2); Basophils Percent Auto 0.7 % (0-2); Eosinophils Absolute Auto 0.1 X10*3/uL (0.0-0.4); Eosinophils Percent Auto 1.3 % (0-4); Hemoglobin 14.6 g/dl (14.0-18.0); Imm Gran Abs Auto 0.06 X10*3/uL (0.00-0.03); Imm Gran Pct Auto 0.9 % (0.0-0.4); Lymphocytes Absolute Auto 1.2 X10*3/uL (1.2-4.9); Lymphocytes Percent Auto 17.4 % (20-40); Mean Corpuscular Hemoglobin 30.7 pg (27.0-33.0); Mean Corpuscular Volume 90.5 fL (80.0-98.0); Mean Platelet Volume 10.7 fL (9.4-12.4); Monocytes Absolute Auto 0.5 X10*3/uL (0.1-1.2); Monocytes Percent Auto 7.7 % (2-11); Neutrophils Absolute Auto 5.1 x10*3/uL (2.0-8.3); Platelet Count 147 X10*3/uL (160-400); Red Blood Count 4.75 X10*6/uL (4.60-5.80); Red Cell Distribution Width 14.4 % (11.0-16.0)
[2024-11-08 08:34] LABS: Alanine Aminotransferase 12 U/L (0-40); Albumin Level 3.9 g/dL (3.5-5.0); Alkaline Phosphatase 58 U/L (39-117); Anion Gap 11 (12-20); Aspartate Amino Transferase 23 U/L (5-37); Bilirubin Total 1.3 mg/dL (0.0-1.0); Blood Urea Nitrogen 16 mg/dL (9-16); Calcium 9.1 mg/dL (8.4-10.2); Carbon Dioxide 30 mmol/L (22-29); Chloride 103 mmol/L (96-108); Creatinine Clr Calc Pharmacy 52.7; Estimated Glomerular Filt Rate 59; Glucose Random 97 mg/dL (60-115); Potassium 3.9 mmol/L (3.3-5.1); Sodium 140 mmol/L (135-145); Total Protein 6.6 g/dL (6.5-8.0)
--- NOTE | 2024-11-08 08:46 | ED.GENADULT ---
HPI - General Adult General Chief complaint: General Medical Stated complaint: Rectal bleeding, recent surgery Time Seen by Provider: 11/08/24 08:17 Source: patient Mode of arrival: ambulatory History of Present Illness HPI narrative: This is 79 years old male status post hemorrhoidectomy on Thursday presented to the emergency department complaining of rectal bleeding. Onset (ago): day(s) (2) Location: buttocks (rectal) Radiation: non-radiation Severity: mild Quality: burning Pain Consistency: constant Relieving factors: none Associated symptoms: denies other symptoms Related Data Home Medications ?Medication ?Instructions ?Recorded ?Confirmed acetaminophen 325 mg tablet 650 mg PO Q6H PRN knee pain 07/20/24 11/04/24 docusate sodium 100 mg capsule 100 mg PO DAILY 07/20/24 11/04/24 ferrous sulfate 325 mg (65 mg 325 mg DAILY 07/20/24 11/04/24 iron) tablet omeprazole 40 mg capsule,delayed 40 mg PO BID@0630,1630 07/20/24 11/04/24 release Previous Rx's ?Medication ?Instructions ?Recorded compr.stocking,knee,long,small #12 ea 06/21/24 (T.E.D. Knee [facility] [place] folic acid 1 mg tablet 1 mg PO DAILY #30 tabs 06/21/24 thiamine mononitrate (vit B1) 100 100 mg PO DAILY #30 tabs 06/21/24 mg tablet diltiazem HCl 120 mg 120 mg PO DAILY #30 caps 08/24/24 capsule,extended release 24 hr apixaban 5 mg tablet (Eliquis) 5 mg PO BID #60 tabs 09/01/24 digoxin 125 mcg (0.125 mg) tablet 125 mcg PO DAILY #90 tabs 09/20/24 metoprolol tartrate 100 mg tablet 100 mg PO Q12H #180 tabs 10/17/24 hydrocodone 5 mg-acetaminophen 325 1 tab PO Q4-6H PRN pain #30 tabs 11/04/24 mg tablet Allergies Allergy/AdvReac Type Severity Reaction Status Date / Time No Known Allergies Allergy Verified 11/08/24 08:06 Review of Systems Constitutional: Constitutional: Reports no additional constitutional complaints Cardiovascular: Cardiovascular: Reports no additional cardiovascular complaints [facility] Past Medical History [facility] Narrative: htn Medical History Hemorrhoids Daily consumption of alcohol Arthritis Iron deficiency anemia Gastric ulcer Atrial fibrillation with RVR Orthostasis NSVT (nonsustained ventricular tachycardia) Upper gastrointestinal bleed Surgical History Hx of hernia repair History of esophagogastroduodenoscopy (EGD) Social History Social History Household Members: None Housing: Apartment Do you presently have visiting nurse or other home services: No Alcohol intake: current Alcohol intake frequency: 0-2 drinks per day Alcohol type: beer Patient Tobacco Use Status: Former Tobacco user Smoked in Last 30 Days: No Use of substances other than those prescribed or required for medical reasons: No Last Used Substance: Unknown Any prior treatment program specific to substance use: No Advance Directives: Yes Advance Directives Information Provided: Yes Advance Directives on File: No Do you have a plan to hurt others: No Plan service: No Physical Exam ED Vital Signs: Vital Signs - 24 hr 11/08/24 08:01 Temperature 97.5 F Pulse Rate 87 Respiratory Rate 16 Blood Pressure 117/78 Pulse Oximetry 94 Oxygen Delivery Method Room Air BMI result Body Mass Index 26.5 He looks well is not toxic-appearing interactive Const General: cooperative Orientation/consciousness: patient oriented x3 Limitations: no limitations HENMT Head: Yes normal to inspection General nose exam: Normal external nose present Face and sinus: Yes normal facial exam Throat: Yes posterior oropharynx normal Neck Neck: Yes normal visual inspection Chest Chest palpation & inspection: normal inspection of the chest Resp Effort & Inspection: normal respiratory effort Cardio Jugular venous distension: no JVD Rate: regular rate GI Inspection: Yes normal to inspection Rectal Exam - Male: Yes other (Minimal bleeding noted in the rectal area) Skin General skin exam: no rashes or lesions noted Lesions: no lesions Neuro General: patient oriented x3 Extrem General: Yes normal to inspection Course Reevaluation(s) Reevaluation #1: Patient was seen in consultation by Dr. Wood okay to discharge H&H stable Time: 09:17 Medical Decision Making Medical Decision Making MDM Narrative: Patient is here complaining of rectal bleeding postop hemorrhoid surgery we will consult Dr. Wood who performed the surgery Differential Diagnosis Differential Diagnoses: The differential diagnosis associated with the presentation includes Postop bleeding/GI bleeding Admission/Observation Consideration of admission/observation: Escalation of care including admission/observation considered Consult Healthcare Provider Management of the patient was discussed with: [employer] Coordinator (dr Wood) Lab Data MDM Lab Attestation statement: I reviewed the patient's lab results. 11/08/24 08:05 11/08/24 08:05 Labs: Lab Results 11/08/24 11/08/24 Range/Units 08:05 08:38 WBC 7.0 (4.8-10.8) X10*3/uL RBC 4.75 (4.60-5.80) X10*6/uL Hgb 14.6 (14.0-18.0) g/dl Hct 43.0 (42.0-52.0) % MCV 90.5 (80.0-98.0) fL MCH 30.7 (27.0-33.0) pg MCHC 34.0 (31.0-36.0) g/dl RDW 14.4 (11.0-16.0) % Plt Count 147 L (160-400) X10*3/uL MPV 10.7 (9.4-12.4) fL Immature Gran % (Auto) 0.9 H (0.0-0.4) % Neut % (Auto) 72.0 (45-73) % Lymph % (Auto) 17.4 L (20-40) % Piute % (Auto) 7.7 (2-11) % Eos % (Auto) 1.3 (0-4) % Baso % (Auto) 0.7 (0-2) % Lymph # (Auto) 1.2 (1.2-4.9) X10*3/uL Piute # (Auto) 0.5 (0.1-1.2) X10*3/uL Eos # (Auto) 0.1 (0.0-0.4) X10*3/uL Baso # (Auto) 0.1 (0.0-0.2) X10*3/uL Abs Immat Gran (auto) 0.06 H (0.00-0.03) X10*3/uL Absolute Neuts (auto) 5.1 (2.0-8.3) x10*3/uL Absolute Nucleated RBC 0.000 (0.0-0.012) X10*3/uL Nucleated RBC % (auto) 0.0 (0.0-0.2) /100WBC Sodium 140 (135-145) mmol/L Potassium 3.9 (3.3-5.1) mmol/L Chloride 103 (96-108) mmol/L Carbon Dioxide 30 H (22-29) mmol/L Anion Gap 11 L (12-20) BUN 16 (9-16) mg/dL Creatinine 1.19 (0.5-1.4) mg/dL Estim Creat Clear Calc 52.7 Estimated GFR 59 Random Glucose 97 (60-115) mg/dL Calcium 9.1 D (8.4-10.2) mg/dL Total Bilirubin 1.3 H (0.0-1.0) mg/dL AST 23 (5-37) U/L ALT 12 (0-40) U/L Alkaline Phosphatase 58 (39-117) U/L Total Protein 6.6 (6.5-8.0) g/dL Albumin 3.9 (3.5-5.0) g/dL Blood Type A Positive Antibody Screen NEGATIVE Discharge Plan Discharge Clinical Impression: Rectal bleeding Patient Disposition: Home, Self-Care Instructions: Rectal Bleeding (ED) Additional Instructions: Please follow-up with Dr. Wood as discussed Prescriptions: No Action diltiazem HCl 120 mg capsule,extended release 24hr 120 mg PO DAILY Qty: 30 3RF Eliquis 5 mg tablet 5 mg PO BID Qty: 60 5RF digoxin 125 mcg (0.125 mg) tablet 125 mcg PO DAILY Qty: 90 1RF Rx Instructions: dose reduced metoprolol tartrate 100 mg tablet 100 mg PO Q12H Qty: 180 1RF Protocol: Hold for SBP/HR < HOLD for SBP < : 90 HOLD for HR < : 60 folic acid 1 mg Tablet 1 mg PO DAILY Qty: 30 0RF thiamine mononitrate (vit B1) 100 mg Tablet 100 mg PO DAILY Qty: 30 0RF (DME) T.E.D. Knee Mgdwug-T-Fxpg Misc See Rx Instructions .ROUTE .MEDSUPPLY Qty: 12 0RF Rx Instructions: As directed ferrous sulfate 325 mg (65 mg iron) tablet 325 mg DAILY docusate sodium 100 mg capsule 100 mg PO DAILY acetaminophen 325 mg Tablet 650 mg PO Q6H PRN (Reason: knee pain) omeprazole 40 mg capsule,delayed release(DR/EC) 40 mg PO BID@0630,1630 Rx Instructions: please take omeprazole 40 mg p.o. b.i.d. until07/22/23, then switched to omeprazole 40 mg daily. hydrocodone-acetaminophen 5-325 mg tablet 1 tab PO Q4-6H PRN (Reason: pain) Qty: 30 0RF Rx Instructions: Partial Fill upon patient request. Referrals: George Wood MD [Physician] - Physician,Unknown J [Primary Care Provider] - 2 days Print Language: French
--- OUTSIDE RECORDS SUMMARY | 2024-11-08 09:51 | XMS_ITS | Patient Health Record ---
Author Organization [facility] Address [address] [place] [address] Care Team Providers Care Flight Crew Time Clerk Name Role Phone Cam acosta, Kermit Primary Care Prov idetony Nogueira Jr, Randolph Unavailable Allergies No Known Allergies Results Component Value Reference Range Notes Type and Screen Reviewed date:06/20/2024 09:16:50 AM Interpretation: Performing Lab:[facility], [address] [place] [phone] Notes/Report: Results at Issue Units as of 06/18/24 1158 ... Test View Group: Most Recent HGB HCT Results LABORATORY Date Time Test Result Flag Normal Range 06/18/24 0804 HGB 8.3 L 14.0-18.0 g/dl 06/18/24 0804 HCT 23.7 L 42.0-52.0 % Hgb 7-9 gm na No no Blood Type AP Antibody Screen NEGATIVE Red Blood Cells Reviewed date:06/20/2024 09:16:57 AM Interpretation: Performing Lab:[facility], [address] [place] [phone] Notes/Report: Red Blood Cells [id number] AP RC Red Blood Cells TRANSFUSED 06/18/24 1157 Red Blood Cells [id number] AP RC Red Blood Cells NOT AVAILABLE Pathology Reviewed date:06/24/2024 09:37:10 PM Interpretation: Performing Lab:[facility], [address] [place] [address], [place] [address] Notes/Report: --- Name: France Kirkland Age/Sex: 79/M : 1945 Unit#: [id number] Attend Dr: Angela Agudelo MD Re06/17/24 Status : DIS IN Location: [facility] 48-1 Disch: 06/21/24 --- SPEC : [id number] RECD : 06/20/24 STATUS: TIERRA ANDRADE NUM: [id number] CATHY: 06/18/24 [facility] DR: Randolph Nogueira MD ENTERED: 06/20/24 SP TYPE: Surgical OTHR DR: Angela Agudelo MD ORDERED: HE Stain/3, Gross Micro L4, IHC, H. pylori Addendum Addendum 1 Entered: 06/24/24-1049 Immunostain for H. pylori is negative. Control stains appropriately. Addendum Signed (signature on file) Holly Rivers 06/24/24 1051 --- Diagnosis Gastric antrum, biop sy: Chronic gastritis with minimal activity; negative for [...] a cassette labeled A. CEDS Special studies orde red and performed: Immunostain for H.pylori on A1. CONTINUED ON NEXT PAGE --- Name: France Kirkland Age/Sex: 79/M : 1945 Unit#: [id number] Attend Dr: Angela Agudelo MD Re06/17/24 Status : DIS IN Location: [facility] 482-1 Disch: 06/21/24 --- SPEC : [id number] RECD : 06/20/24 STATUS: TIERRA ANDRADE NUM: [id number] CATHY: 06/18/[address] [facility] [address]: Randolph Nogueira MD ENTERED: 06/20/24 SP TYPE: Surgical OTHR DR: Angela Agudelo MD ORDERED: HE Stain/3, Gross Micro L4, IHC, H. pylori Copies To: Randolph Nogueira MD [address] [place] [address] Angela Agudelo MD [address] [place] [address] --- Signed (signature on file) Holly Bowie 06/21/24 1426 --- END OF REPORT Complete Blood Count no Diff Reviewed date:06/20/2024 09:16:35 AM Interpretation: Performing Lab:[facility], [address] [place] [address] Notes/Report: White Blood Count 4.6 4.8-10.8 X10*3/uL [...] Panel Reviewed date:06/20/2024 09:16:43 AM Interpretation: Performing Lab:[facility], [address] [place] [phone] Notes/Report: Sodium 138 135-145 mmol/L Potassium 3.9 [...] Diff Reviewed date:06/24/2024 09:37:45 PM Interpretation: Performing Lab:[facility], [address] [place] [phone] Notes/Report: White Blood Count 5.7 4.8-10.8 X10*3/uL [...] PROFILE Reviewed date:06/24/2024 09:36:37 PM Interpretation: Performing Lab:[facility], [address] [place] [phone] Notes/Report: Iron 31 45-160 mcg/dL Total Iron Binding Capacity 257 228-428 mcg/dL Percent Iron Saturation 12 15-50 % Unsaturated Iron Binding 226 Ferritin Reviewed date:06/24/2024 09:37:24 PM Interpretation: Performing Lab:[facility], [address] [place] [phone] Notes/Report: Ferritin 45 20-250 ng/mL Complete Blood Count Auto Di ff Reviewed date:07/05/2024 03:41:05 PM Interpretation: Performing Lab:[facility], [address] [place] [phone] Notes/Report: White Blood Count 5.7 4.8-10.8 X10*3/uL [...] PROFILE Reviewed date:07/05/2024 03:40:58 PM Interpretation: Performing Lab:[facility], [address] [place] [phone] Notes/Report: Iron 103 45-160 mcg/dL Total Iron Binding Capacity 283 228-428 mcg/dL Percent Iron Saturation 36 15-50 % Unsaturated Iron Binding 180 Ferritin Reviewed date:07/05/2024 03:41:16 PM Interpretation: Performing Lab:[facility], [address] [place] [phone] Notes/Report: Ferritin 27 20-250 ng/mL Pathology Reviewed date:10/24/2024 08:53:37 AM Interpretation: Performing Lab:[facility], [address] [place] [phone] Notes/Report: --- Name: SandovalFrance Age/Sex: 79/M : 1945 Unit#: [id number] Attend Dr: Randolph Nogueira MD Re10/14/24 Status : [facility] Location: [facility] Disch: --- SPEC : [id number] RECD : 10/14/24 STATUS: TIERRA ANDRADE NUM: [id number] CATHY: 10/14/[address] [facility] [address]: Randolph Nogueira MD ENTERED: 10/14/24 SP TYPE: Surgical OTHR DR: ORDERED: HE Stain/12 , Gross Micro L4/4, IHC, Special st. 2, H. pylori, AB/PAS Diagnosis A. Stomach, antrum, biopsy: Gastric antral mucosa with moderate chronic inactive gastritis and few Helicobacter pylori organisms; negative for intestinal metaplasia and dysplasia. B. Colon, right, polypectomy: Tubular adenoma; negative for high-grade dysplasia. C. Rectum, biopsy: Colonic mucosa with mild non-specific reactive changes; negative for active, chronic or microscopic colitis. D. Rectum, polyp, biopsy: Vegetable material only; no colonic tissue seen. Clinical History Pre-Op Dx: H/O gastr ic ulcer Post-Op Dx: Normal E GD, colon polyps Microscopic Description A. Microscopic secti ons examined. No metaplastic changes are seen, supported by AB/PAS stains (A); Helicobacter organisms are seen, supported by H. pylori immunostain (A). Material Received A. Antral bx's B. Right colon polyp C. Rectal bx's D. Rectal polyp Gross Description Received in 4 parts. A. Received in forma rom labeled ?antrum biopsies? are 2 fragments of killian-white soft tissue measuring 0.2 and 0. 2 cm in greatest dimension which are wrapped in lens paper and entirely submitted for microscopic examination, 2 pieces in cassette A. B. Received in forma rom labeled ?right colon polyp? are 2 fragments of red-pink soft tissue measuring 0.7 and 0. 6 cm in greatest dimension which are wrapped in lens paper and entirely submitted for microscopic examination, 2 pieces in cassette B. C. Received in forma rom labeled ?rectal biopsies? are 2 fragments of killian-white soft tissue measuring 0.2 and 0. 2 cm in greatest dimension which are wrapped in lens paper and entirely CONTINUED ON NEXT PAGE --- Name: France Kirkland Age/Sex: 79/M : 1945 Unit#: [id number] Attend Dr: Randolph Nogueira MD Re10/14/24 Status : [facility] Location: [facility] Disch: --- SPEC : [id number] RECD : 10/14/24 STATUS: VERAThomas LUPE NUM: [id number] CATHY: 10/14/[address] [facility] [address]: Randolph Nogueira MD ENTERED: 10/14/24-04 16 SP TYPE: Surgical OTHR DR: ORDERED: HE Stain/12 , Gross Micro L4/4, IHC, Special st. 2, H. pylori, AB/PAS Gross Description (Continued) submitted for microscopic examination, 2 pieces in cassette C. D. Received in forma rom labeled ?rectal polyp? are minute fragments of killian-white and yellow killian tissue forming i n aggregate measuring 0.4 x 0.3 x 0.1 cm which is wrapped in lens paper and entirely submitt ed for microscopic examination, multiple pieces in cassette D. ([facility]) Special stains order ed and performed: A/B PAS on A; immunostain for H pylori on A. --- Signed (signature on file) Dina Aviles MD 10/17/24 1513 --- END OF REPORT Reason For Referral No Information Medications Medication [...] EVER Y DAY Oral for 30 Unknown metroNIDAZOLE 500 MG 1 tablet Orally Thr ee times a day for 14 days 10/24/2024 Active Tetracycline HCl 500 MG 4 Orally 4 times a day for 14 days 10/24/2024 Active Omeprazole 20 MG 1 Orally twice daily for 14 days 10/24/2024 Active Bismuth Subsalicylate 525 MG 1 Orally 4 times daily for 14 days 10/24/2024 Active Social History Tobacco Use: Social History Observation [...] Problem Status W/U Status Risk Notes Problem 681422021 Colon cancer screening (Z12.11) Active confirmed Problem 71454108 Acute gastric ulcer with hemorrhage (K25.0) Active confirmed Vital Signs Blood pressure diastolic 00 mm Hg 06/29/2024 Height 5 ft 11 in in 06/29/2024 Blood pressure systolic 00 mm Hg 06/29/2024 Weight 182 lbs 06/29/2024 BMI 25.38 kg/m2 06/29/2024 Encounters Encounter Location Date Provider Diagnosis [facility] Outpatient [address] [place] [id number] 10/14/2024 Randolph Nogueira Jr Colon cancer screening Z12.11 ; Colon polyps K63.5 and Gastric ulcer K25.9 [facility] [address] [place] [phone] 06/29/2024 Randolph Nogueira Jr Acute gastric ulcer with hemorrhage K25.0 and Colon cancer screening Z12.11 [facility] [address] [place] [phone] 06/22/2024 Randolph Nogueira Jr Acute gastric ulcer with hemorrhage K25.0 [facility] [address] [place] [phone] 06/28/2024 Randolph Nogueira Jr [facility] [address] [place], [place] [address], [place] [address] 07/05/2024 Randolph Leaifford [facility] [address] [facility] [place] [address] 07/21/2024 Randolph Leasameera Hsieh [facility] [address] [facility] [place] [address] 08/12/2024 Randolph Nogueira Jr [facility] [address] [facility] [place] [address] 08/18/2024 Randolph Oliverord [facility] [address] [place] [address] 08/19/2024 Randolph Oliverord [facility] [address] [facility] [place] [address] 08/19/2024 Randolph Oliverord [facility] [address] [facility] [place] [address] 08/31/2024 Randolph Leaifford [facility] [address] [place] [facility] [place] [address] 10/24/2024 Randolphroc Nogueira Jr H. pylori infection A04.8 Assessments Encounter Date Diagnosis (ICD Code) Assessment Notes Treatment Notes Treatment Clinical Notes Section Notes 10/14/2024 Colon cancer screening (ICD-10 - Z12.11) 10/14/2024 Colon polyps (ICD-10 - K63.5) 06/29/2024 Colon cancer screening (ICD-10 - Z12.11) [...] gastric ulcer with hemorrhage (ICD-10 - K25.0) 10/24/2024 H. pylori infection (ICD-10 - A04.8) 10/14/2024 Gastric ulcer (ICD-10 - K25.9) Plan Of Treatment Pending Test Test Name Order Date IRON + IBC (FE) 06/22/2024 IRON + IBC (FE) 06/29/2024 FERRITIN 06/22/2024 FERRITIN 06/29/2024 CBC w/o DIFF 06/29/2024 CBC w/o DIFF 06/22/2024 Future Test Test Name Order Date UPPER GI ENDOSCOPY 06/29/2024 Next Appt Details Provider Name:Randolph wilkerson , 03/27/2025 10:20:00 AM, [address] [place] [address], [address], [place], [address], Insurance Providers Payer Name Payer Address Payer Phone Subscriber Number Group Number Insured Name Patient Relationship to Insured Coverage Start Date Coverage End Date MEDICARE OF [place] [address] [place] [address] [phone] [id number] ТАТЬЯНА [place] Self - patient is the insured MEDICAID OF [facility] [address] [place] [address] [phone] [id number] ТАТЬЯНА KIRKLAND Self - patient is the insured Medical (General) History Medical History History ICD Code GI bleed with gastric ulcer 07/12 Surgical History Surgery Date(Month/Year) HERNIA REPAIR BILATERAL AGE 4
--- OUTSIDE RECORDS SUMMARY | 2024-11-08 09:51 | XMS_ITS | Clinical Summary ---
Author Organization [employer] Address [address] [facility] 7[address] [place] [address] Care Team Providers Care Explosive Operator Grenade Name Role Phone Kermit Rangel MD Primary [...] 1 tablet by mouth 2 times daily. 07/26/2024 Active dilTIAZem CD (Cardizem CD) 120 MG 24 hr capsule Take 1 capsule by mouth Once per day. 07/26/2024 Active digoxin (Lanoxin) 250 MCG tab;et Take 1 tablet by mouth Once per day. 07/26/2024 Active metoprolol tartrate (Lopressor) 100 MG tablet Take 100 mg by mouth 2 times daily. 07/26/2024 Active omeprazole OTC (PriLOSEC OTC) 20 MG EC tablet Take 1 tablet (20 mg) by mouth before breakfast. Do not crush, chew, or split. 30 tablet 3 09/08/2024 Active Ascorbic Acid (Vitamin C) 500 MG capsule Take 1 capsule orally with iron daily 30 capsule 3 09/08/2024 Active Active Problems Problem Noted Date Diagnosed Date [...] Encounters Date Type Department Care Team Description 11/03/2024 Travel 10/04/2024 10:15 AM EDT Office Visit [facility] [address] [place] [address] Ian Jauregui MD Lesion of skin of nose (Primary Dx); Seborrheic keratosis; Decreased hearing of both ears 10/04/2024 Travel 09/15/2024 Telephone [facility] [address] [place] [phone] Kermit Rangel MD FYI 09/08/2024 2:15 PM EST Office Visit [facility] [address] [place] [address] Aletha Waldrop MD Persistent atrial fibrillation (CMS/HCC) (Primary Dx); Preop examination 09/08/2024 Travel 09/06/2024 Telephone [facility] [address] [place] [address] Kermit Rangel MD Pre op from Last 3 Months Family History Medical [...] Sign Reading Time Taken Comments Blood Pressure 112/66 10/04/2024 9:57 AM EDT Pulse 78 10/04/2024 9:57 AM EDT Temperature 36.4 ??C (97.5 ??F) 10/04/2024 9:57 AM ED T Respiratory Rate 20 10/04/2024 9:57 AM EDT Oxygen Saturation 98% 10/04/2024 9:57 AM EDT Inhaled Oxygen Concentration - - Weight 88.6 kg (195 lb 6.4 oz) 10/04/2024 9:57 A M EDT Height 177.8 cm (5' 10 ) 10/04/2024 9:57 AM EDT Body Mass Index 28.04 10/04/2024 9:57 AM EDT Plan of Treatment Upcoming Encounters Date Type Department Care Team (Late st Contact Info) Description 11/10/2024 8:30 AM EDT Office Visit [facility] [address] [place], [place] [phone] Kermit Rangel MD [address] [place] [address] Health Maintenance Due Date Last Done Comments [...] (#1) 2024 Depression Screening 07/08/2025 07/08/2024, 07/08/2024 SDOH Screening 09/08/2025 09/08/2024 Tobacco Screening 10/04/2025 10/04/2024 Lipid Panel 09/13/2029 09/13/2024 HIB Vaccines Aged [...] Procedure Name Priority Date/Time Associated Diagnosis Comments DESTRUCTION OF LESION Routine 10/04/2024 12:56 PM EDT Seborrheic keratosis DIGOXIN Routine 09/22/2024 7:05 AM EST DIGOXIN Routine 09/13/2024 7:22 AM EST LIPID [...] MYOCARDIAL PERFUSION Routine 08/10/2024 10:06 AM EST from Last 3 Months Results * Destruction of lesion (10/04/2024 12:56 PM EDT) Ian Damon MD - 10/04/2024 12:56 PM EDT Ian Jauregui MD ? 10/04/2024 12:59 PM Destruction of lesion Date/Time: 10/04/2024 12:56 PM Performed by: Ian Jauregui MD Authorized by: Ian Jauregui MD ?? Consent: ??Consent obtained: ??Verbal ??Risks discussed: ??Infection, pain and poor cosmetic result Voltaire protocol: ??Procedure explained and questions answered to patient or proxy's satisfaction: yes ?Relevant documents present and verified: no ?Test results available: no ?Imaging studies available: no ?Required blood products, implants, devices, and special equipment available: no ?Site/side marked: no ?Immediately prior to procedure, a time out was called: yes ?? Number of Lesions: 1 Lesion 1: ??Malignancy: benign lesion ?? Comments: Cryotherapy of the tip of the nose as per protocol. us Ian Jauregui MD DERM PROCEDURE ORDERABLES F inal Result * Digoxin (09/22/2024 7:05 AM EST) Only the most recent of2 resultswithin the time period is included. Digoxin 0.9 0.8 - 2.0 ng/mL [facility] Comment:Assay modified to mi nimize interference from aldosteroneantagonists (e.g. spironolactone and canrenone). 09/22/2024 7:05 AM EST 09/22/2024 7:05 AM EST us Generic External Data Provider LAB BLOOD ORDERAB LES Final Result Performing Organization Address [facility] Co de Phone Number [facility] [address] [place] [phone] * Vitamin B12 (Cobalamin) and Folate Panel, Serum (09/13/2024 7:22 AM EST) Vitamin B12 334 200 - 900 pg/mL [facility] Comment:NORMAL 200-900 PG/ML INDETERMINATE 160-199 PG/ML DEFICIENT < 160 PG/ML Folate 10.1 > or = 4.0 ng/mL [facility] Comment:Reference Values:> o r = 4.0 ng/mL< 4.0 ng/mL suggests folate deficiency Methotrexate, aminopterin and folinic acid(leucovorin) are chemotherapeutic agents whose molecularstructures are similar to folate; therefore, the Architectfolate assay cannot be used for patients using these drugs. Blood Venous blood specimen / Unknown 09/13/2024 7:22 AM EST 09/13/2024 7:22 AM EST Kermit Tabares MD LAB BLOOD ORDERABL ES Final Result Performing Organization Address [facility] Co de Phone Number [facility] [address] [place] [phone] * (ABNORMAL) CBC auto differential (09/13/2024 7:22 AM EST) White Blood Count 5.5 4.8 - 10.8 X10*3/uL [facility] Red Blood Count 4.52(L) 4.60 - 5.80 X10*6/uL [facility] Hemoglobin 13.1(L) 14.0 - 18.0 g/dl [facility] Hematocrit 39.1(L) 42.0 - 52.0 % [facility] Mean Corpuscular Volume 86.5 80.0 - 98.0 fL [facility] Mean Corpuscular Hemoglobin 29.0 27.0 - 33.0 pg [facility] Mean Corpuscular HGB Conc 33.5 31.0 - 36.0 g/dl [facility] Red Cell Distribution Width 16.0 11.0 - 16.0 % [facility] Platelet Count 143(L) 160 - 400 X10*3/uL [facility] Mean Platelet Volume 10.3 9.4 - 12.4 fL [facility] Neutrophils Percent Auto 71.1 45 - 73 % [facility] Imm Gran Pct Auto 0.5(H) 0.0 - 0.4 % [facility] Lymphocytes Percent Auto 19.3(L) 20 - 40 % [facility] Monocytes Percent Auto 7.1 2 - 11 % [facility] Eosinophils Percent Auto 1.3 0 - 4 % [facility] Basophils Percent Auto 0.7 0 - 2 % [facility] NRBC Pct Auto 0.0 0.0 - 0.2 /100WBC [facility] Neutrophils Absolute Auto 3.9 2.0 - 8.3 x10*3/uL [facility] Imm Gran Abs Auto 0.03 0.00 - 0.03 X10*3/uL [facility] Lymphocytes Absolute Auto 1.1(L) 1.2 - 4.9 X10*3/uL [facility] Monocytes Absolute Auto 0.4 0.1 - 1.2 X10*3/uL [facility] Eosinophils Absolute Auto 0.1 0.0 - 0.4 X10*3/uL [facility] Basophils Absolute Auto 0.0 0.0 - 0.2 X10*3/uL [facility] NRBC Abs Auto 0.000 0.0 - 0.012 X10*3/uL [facility] 09/13/2024 7:22 AM EST 09/13/2024 7:22 AM EST us Generic External Data Provider LAB BLOOD ORDERAB LES Final Result Performing Organization Address [facility]/ZIP Co de Phone Number [facility] [address] [place] [phone] * (ABNORMAL) Iron And Total Iron Binding Capacity (09/13/2024 7:22 AM EST) Iron 180(H) 45 - 160 mcg/dL [facility] Total Iron Binding Capacity 289 228 - 428 mcg/dL [facility] Percent Iron Saturation 62(H) 15 - 50 % [facility] Unsaturated Iron Binding 109 ug/dL [facility] Blood Venous blood specimen / Unknown 09/13/2024 7:22 AM EST 09/13/2024 7:22 AM EST Kermit Tabares MD LAB BLOOD ORDERABL ES Final Result Performing Organization Address [facility] Co de Phone Number [facility] [address] [place] [phone] * Lipid Panel, Standard (09/13/2024 7:22 AM EST) Triglycerides 90 <150 mg/dL [facility] Comment:Desirable Triglyceri de: less than 150 mg/dLBorderline High Triglyceride 150-199 mg/dLHigh Triglyceride: 200-499 mg/dLVery High Triglyceride: greater than or equal to 5OO mg/dL Cholesterol 134 <200 mg/dL [facility] Comment:Desirable Cholestero l: less than 200 mg/dLBorderline High Cholesterol: 200-239 mg/dLHigh Cholesterol: greater than 239 mg/dL LDL Cholesterol Calculated 66 <100 mg/dL [facility] Comment:Desirable LDL: less than 100 mg/dLNear Optimal/Above Optimal LDL: 110- 129 mg/dLBorderline High LDL: 130-159 mg/dLHigh LDL: 160-189 mg/dLVery High LDL: greater than or equal to 190 mg/dL HDL Cholesterol 50 >40 mg/dL [facility] Comment:Desirable HDL: great er than 40 mg/dL Note: This HDL assay may give artificially low results in patients with liver disease. 09/13/2024 7:22 AM EST 09/13/2024 7:22 AM EST us Generic External Data Provider LAB BLOOD ORDERAB LES Final Result [facility] [address] [facility] [place] [phone] * Stress test with myocardial perfusion (08/10/2024 10:06 AM EST) 08/10/2024 10:0 6 AM EST Narrative [facility] - 08/12/2024 1:05 PM EST ? [facility] ?[address] ?[place] [address] ?Nuclear Medicine Report ? Signed ? Patient: Sandoval,Geovanni L ?MR#: [id number] ?? [id number] ? : 1945 ?Acct:[id number] ? Age/Sex: 79 / M ?ADM Date: 08/10/24 ? Loc: HO.CARD ? Attending Dr: Ros FONTAINE ? Ordering Physician: Ros Cline ?? Date of Service: 08/10/24 ?? Procedure(s): NM cardiolite stress test ?? Accession Number(s): [id number] ? cc: Kermit Rangel MD; Ros Cline [...] DD/ 1006 ? TD/TT: 08/12/24 0815 ? Sulfur Chloride Operator: ? Procedure Note Maryellen Baires - 08/12/[address] [place] [address] Nuclear Medicine Report Signed Patient: Geovanni Nick LMR#: [id number] : 4Acct:[id number] Age/Sex: 79 / MADM Date: 08/10/24 [facility]: Ros FONTAINE Ordering Physician: Ros Cline Date of Service: 08/10/24 Procedure(s): NM cardiolite stress test Accession Number(s): [id number] cc: Kermit Rangel MD; Ros Cline Lexiscan [...] by: Enrique Yi MD 08/12/2024 01:[address] [facility] Dictated By: Enrique Yi MD Signed By: <Electronically signed by Enrique Yi MD in OV> 08/12/24 1303 DD/ 1006 TD/TT: 08/12/24 0815 Sulfur Chloride Operator: us [facility] External Provider CV STRE SS PROCEDURES Final Result [facility] [address] [place] [phone] from Last 3 Months Insurance [facility] STANDARD MEDICARE Care Teams Explosive Operator Grenade Relationship Specialty Start Date End Date Kermit Rangel MD [address] [place] [phone] PCP - General Internal Medicine 07/11/24 [place] [facility] 07/28/24
--- OUTSIDE RECORDS SUMMARY | 2024-11-08 09:51 | XMS_ITS | Encounter Summary ---
Author Organization [employer] Address [address] [facility] 7t [place] [address] Care Team Providers Care Car Record Clerk Name Role Phone Kermit Rangel MD Primary Care Prov ider Encounter Details Date Type Department Care Team (Latest Contact Info) Description 11/03/2024 Travel Social History Tobacco Use Types Packs/Day [...] Upcoming Encounters Date Type Department Care Team ([facility] st Contact Info) Description 11/10/2024 8:30 AM EDT Office Visit [facility] [address] [place] [address] Kermit Rangel MD [address] [place] [address] documented as of this encounter Visit Diagnoses Not on filedocumented in this encounter Additional Health Concerns Assessment Noted Time PHQ-9 Depression Total Score: 0 07/08/20 9:15 AM EST documented as of this encounter Care Teams Car Record Clerk Relationship Specialty Start Date End Date Kermit Rangel MD [address] [place] [address] PCP - General Internal Medicine 07/11/24 [place] [facility] 07/28/24 documented as of this encounter
--- OUTSIDE RECORDS SUMMARY | 2024-11-08 09:51 | XMS_ITS ---
Author Organization [facility] Address [address] [place] [address] Care Team Providers Care Panama Hat Smearer Name Role Phone Cam acosta, [place] Primary Care Prov ider Randolph Miguel Jr REASON FOR VISIT gastric ulcer, screening Encounters Encounter Location Date Provider Diagnosis [facility] [address] [place] [phone] 10/14/2024 Randolph Nogueira Jr Colon cancer screening [...] Name:Randolph wilkerson Jr, 03/27/2025 10:20:00 AM, [address], [address], [place], [address], Progress Notes * ТАТЬЯНА KIRKLAND LDOB:1944 (79 yo M)Acc No.[id number]:10/14/2024 EGD and COL/MAC Patient:?ТАТЬЯНА KIRKLAND Eduardo Provider:?Randolph Nogueira MD :1945???Age:79 Y???Sex:Male Pernell e:10/14/2024 Address:[address] [place] [address] [address], [facility] Pcp:Kermit porter md Subjective: * Chief Complaints: * ???1. Gastric ulcer, screeni ng. * Medical History:? Objective: * Vitals:? Assessment: * Assessment: 1.?Colon cancer screening - Z12.11 (Primary)???2.?Colon polyps - K63.5???3.?Gastric ulcer - K25.9??? Plan: * Treatment: * Procedure Codes:?54674 LESIO N REMOVAL COLONOSCOPY, 97663 UPPER GI ENDOSCOPY, BIOPSY * * The named appointment provid er may or may not be the originator of this progress note, and it is not deemed complete until electronically signed by the appointment provider. Sign off status: Pending * Provider:?Randolph Nogueira MD Date:?0 10/14/2024 Generated for Kim villasenor/Princess/eTransmitting on:?11/08/2024 09:51 AM EDT
--- OUTSIDE RECORDS SUMMARY | 2024-11-08 09:51 | XMS_ITS ---
Author Organization [facility] Address [address] [place] [address] Care Team Providers Care Wet Roller Name Role Phone Cam acosta, Kermit Primary Care Prov ider Unavailable Jero Hsieh, Randolph Unavailable REASON FOR VISIT path Medications Medication SIG (Take, Route, Frequency, Duration) Notes Start Date End Date Status metroNIDAZOLE 500 MG [address] ee times a day for 14 days 10/24/2024 Active Tetracycline HCl 500 MG 4 Orally 4 times a day for 14 days 10/24/2024 Active Omeprazole 20 MG 1 Orally twice daily for 14 days 10/24/2024 Active Bismuth Subsalicylate 525 MG 1 Orally 4 times daily for 14 days 10/24/2024 Active Encounters Encounter Location Date Provider Diagnosis [facility] [phone] 10/24/2024 Randolph Nogueira Jr H. pylori infection A04.8 Assessments Encounter Date Diagnosis (ICD Code) Assessment Notes Treatment Notes Treatment Clinical Notes Section Notes 10/24/2024 H. pylori infection (ICD-10 - A04.8) Plan Of Treatment Medication Medication Name Sig Start Date Stop Date Notes metroNIDAZOLE 500 MG [address] tablet [address]ally Thr ee times a day for 14 days 10/24/2024 Tetracycline HCl 500 MG 4 Orally 4 times a day for 14 days 10/24/2024 Omeprazole 20 MG 1 Orally twice daily for 14 days 10/24/2024 Bismuth Subsalicylate 525 MG 1 Orally 4 times daily for 14 days 10/24/2024 Next Appt Details Provider Name:Randolph wilkerson Jr, 03/27/2025 10:20:00 AM, [address] [facility] [address] [address], [address], [place], [address], Progress Notes * ТАТЬЯНА KIRKLAND LDOB:1944 (79 yo M)Acc No.[id number]:10/24/2024 Patient:?ТАТЬЯНА KIRKLAND :1945???Age:79 Y???Sex:Male Address:[address] [place] [address] [address], [place], [address] * Refills? Start Omeprazole Capsule Delayed Release, 20 MG, Orally, 28, 1, twice daily, 14 days, Refills=0 Start Bismuth Subsalicylate Tablet, 525 MG, Orally, 56, 1, 4 times daily, 14 days, Refills=0 Start Tetracycline HCl Capsule, 500 MG, Orally, 56, 4, 4 times a day, 14 days, Refills=0 Start metroNIDAZOLE Tablet, 500 MG, Orally, 42 Tablet, 1 tablet, Three times a day, 14 days, Refills=0 Subjective: * Chief Complaints: * ???Path * Medical History:? * Surgical History:? * Hospitalization/Major Diagno stic Procedure:? * Medications:? Objective: * Vitals:? * Physical Examination:? Assessment: * Assessment: 1.?H. pylori infection - A04 .8 (Primary)??? Plan: * Treatment: * Procedure Codes:? * true * Date:? Generated for Kim villasenor/Princess/eTransmitting on:?11/08/2024 09:51 AM EDT
--- OUTSIDE RECORDS SUMMARY | 2024-11-08 09:51 | XMS_ITS | Encounter Summary ---
Author Organization [employer] Address [address] [facility] [address] [place] [address] Care Team Providers Care Online Communications Manager Name Role Phone Kermit Rangel MD Primary Care Prov ider Reason for Visit * Reason Onset Date Comments FYI 09/15/2024 Encounter Details Date Type Department Care Team (Late st Contact Info) Description 09/15/2024 Telephone [facility] [address] [place] [address] Kermit Rangel MD [address] [place] [address] FY Social History Tobacco Use Types Packs/Day Years [...] look at labs and contact Kisha at [phone]. documented in this encounter Plan of Treatment Upcoming Encounters Date Type Department Care Team (Late st Contact Info) Description 11/10/2024 8:30 AM EDT Office Visit [facility] [address] [place] [address] Kermit Rangel MD [address] [place] [address] documented as of this encounter Visit Diagnoses Not on filedocumented in this encounter Additional Health Concerns Assessment Noted Time PHQ-9 Depression Total Score: 0 07/08/20 9:15 AM EST documented as of this encounter Care Teams Online Communications Manager Relationship Specialty Start Date End Date Kermit Rangel MD [address] [place] [address] PCP - General Internal Medicine 07/11/24 [place] [facility] 07/28/24 documented as of this encounter
--- OUTSIDE RECORDS SUMMARY | 2024-11-08 09:52 | XMS_ITS | Encounter Summary ---
Author Organization [employer] Address [address] [facility] [address] [place] [address] Care Team Providers Care Jacquard Lace Weaver Name Role Phone Kermit Rangel MD Primary Care Prov ider Reason for Visit * Reason Onset Date Comments Appointment Request 07/29/2024 Encounter Details Date Type Department Care Team (Late st Contact Info) Description 07/29/2024 Telephone [facility] [address] [place] [address] Kermit Rangel MD [address] [place] [address] Appointment Request Social History Tobacco Use Types [...] for that day if theres any availability. [phone] documented in this encounter Plan of Treatment Upcoming Encounters Date Type Department Care Team (Late st Contact Info) Description 11/10/2024 8:30 AM EDT Office Visit [facility] [address] [place] [address] Kermit Rangel MD [address] [place] [address] documented as of this encounter Visit Diagnoses Not on filedocumented in this encounter Additional Health Concerns Assessment Noted Time PHQ-9 Depression Total Score: 0 07/08/20 9:15 AM EST documented as of this encounter Care Teams Jacquard Lace Weaver Relationship Specialty Start Date End Date Kermit Rangel MD [address] [place] [address] PCP - General Internal Medicine 07/11/24 [place] [facility] 07/28/24 documented as of this encounter
--- OUTSIDE RECORDS SUMMARY | 2024-11-08 09:52 | XMS_ITS | Encounter Summary ---
Author Organization [employer] Address [address] [facility] [address] [place] [address] Care Team Providers Care Linoleum Layer Apprentice Name Role Phone Kermit Rangel MD Primary Care Prov ider Encounter Details Date Type Department Care Team (Late st Contact Info) Description 07/11/2024 Telephone [facility] [address] [place] [address] Kermit Rangel MD [address] [place] [address] Social History Tobacco Use Types Packs/Day Years [...] Description 11/10/2024 8:30 AM EDT Office Visit [facility] [address] [place] [address] Kermit Rangel MD [address] [place] [address] documented as of this encounter Visit Diagnoses Not on filedocumented in this encounter Additional Health Concerns Assessment Noted Time PHQ-9 Depression Total Score: 0 07/08/20 9:15 AM EST documented as of this encounter Care Teams Linoleum Layer Apprentice Relationship Specialty Start Date End Date Kermit Rangel MD [address] [place] [address] PCP - General Internal Medicine 07/11/24 [place] [facility] 07/28/24 documented as of this encounter
--- OUTSIDE RECORDS SUMMARY | 2024-11-08 09:52 | XMS_ITS ---
Author Organization [facility] Address [address] [place] [address] Care Team Providers Care Security Team Lead Name Role Phone Cam acosta, Kermit Primary Care Prov ider Chip Nogueira Jr, Randolph Saunders REASON FOR VISIT FYI Encounters Encounter Location Date Provider Diagnosis [facility] [address] [facility] [address] [place] [address] 08/31/2024 Randolph Nogueira Jr Plan Of Treatment Next Appt Details Provider Name:Randolph wilkerson Jr, 03/27/2025 10:20:00 AM, [address], [address], [place], [address], Progress Notes * ТАТЬЯНА KIRKLAND LDOB:1944 (79 yo M)Acc No.[id number]:08/31/2024 Patient:?ТАТЬЯНА KIRKLAND Eduardo :1945???Age:79 Y???Sex:Male Address:[address], [place], [address] * true * Date:? Generated for Printi ng/Negritag/eTransmitting on:?11/08/2024 09:51 AM EDT
[2024-11-08 09:58] VITALS: BP 126/76; PULSE 90; RESP 18; TEMP 36.4; O2SAT 95
== END 2024-11-08 09:58 | disposition home or self-care (01) ==
PROVIDERS: Emergency Provider Emergency Medicine
DX: K62.5 Hemorrhage of anus and rectum (principal); I48.91 Unspecified atrial fibrillation; Z79.899 Other long term (current) drug therapy
CPT/HCPCS: 36415; 80053; 85025; 86850; 86900; 86901; 93005; 99283; 99285

== ENCOUNTER → 2024-11-08 08:47 | Outpatient (BNV) | payer MEDICARE, SELFPAY | PROVIDERS: Emergency Provider Emergency Medicine; Visit Provider Internal Medicine | DX: I48.91 Unspecified atrial fibrillation (principal); I45.10 Unspecified right bundle-branch block | CPT/HCPCS: 93010 ==

== ENCOUNTER 2024-11-28 09:05 | Outpatient (AMB) | payer MEDICARE, SELFPAY ==
--- NOTE | 2024-11-28 09:09 | A.OFFVIS_ITS ---
Vital Signs 11/28/24 09:17 Height 5 ft 11 in Weight 191 lb BMI 26.6 BP 146/78 H Blood Pressure Location Rt brachial Position Sitting Pulse 96 Intake Visit Reasons: s/p hemorrhoidectomy Intake Note: Patient here s/p hemorrhoidectomy. Patient c/o: area still sore. No longer taking rx pain meds. Surgery: 11-04-2024 Information Operator Required: No Accompanied by: Self / Same As Patient Allergies No Known Allergies Allergy (Verified 11/28/24 09:17) HPI HPI s/p hemorrhoidectomy: Details: He had undergone hemorrhoidectomy with Dr. Wood last 11/04/2024. He is here for a postop check. He says he is doing well overall. He however states that he he has some leakage of what appears to be clear to mucousy fluid and has to change dressings twice a day because of this. He denies significant pain. [facility] Medical History Hemorrhoids Daily consumption of alcohol Arthritis Iron deficiency anemia Gastric ulcer Atrial fibrillation with RVR Orthostasis NSVT (nonsustained ventricular tachycardia) Upper gastrointestinal bleed Surgical History H/O hemorrhoidectomy (11/04/24) Hx of hernia repair History of esophagogastroduodenoscopy (EGD) Social History Household Members: None Housing: Apartment Do you presently have visiting nurse or other home services: No Alcohol intake: current Alcohol intake frequency: 0-2 drinks per day Alcohol type: beer Patient Tobacco Use Status: Former Tobacco user service: No Review of Systems Const Denies chills and Denies fever(s) Card Denies chest pain Resp Denies cough Physical Exam Const General: comfortable and no acute distress Assessment & Plan Assessment & Plan (1) Hemorrhoids: Code(s): K64.9 - Unspecified hemorrhoids Category: Surgical Plan: Status post hemorrhoidectomy with Dr. Wood. He is doing well postoperatively. His surgical site seems to be healing well. He is back on his anticoagulation. He was advised on avoiding straining and constipation. His path report shows hemorrhoids. He does state that he still notices some leakage of clear to mucousy fluid and has to change dressings on the area twice a day so I will see him again in the office in about another month. Coding Level of Care Code Global (81766) Diagnoses Hemorrhoids K64.9
--- OUTSIDE RECORDS SUMMARY | 2024-11-28 09:13 | XMS_ITS ---
Author Organization [facility] Address [address] [place] [address] Care Team Providers Care Terrazzo Layer Helper Name Role Phone Cam acosta, [place] Primary Care Prov ider Randolph Miguel Jr REASON FOR VISIT gastric ulcer, screening Encounters Encounter Location Date Provider Diagnosis [facility] [address] [place] [phone] 10/14/2024 Randolph Nogueira Jr Colon cancer screening [...] Name:Randolph wilkerson Jr, 03/27/2025 10:20:00 AM, [address], [address], [place], [address], Progress Notes * ТАТЬЯНА KIRKLAND LDOB:1944 (79 yo M)Acc No.[id number]:10/14/2024 EGD and COL/MAC Patient:?ТАТЬЯНА KIRKLAND Eduardo Provider:?Randolph Nogueira MD :1945???Age:79 Y???Sex:Male Pernell e:10/14/2024 Address:[address] [place] [address] [address], [place] [id number] Pcp:Kermit porter md Subjective: * Chief Complaints: * ???1. Gastric ulcer, screeni ng. * Medical History:? Objective: * Vitals:? Assessment: * Assessment: 1.?Colon cancer screening - Z12.11 (Primary)???2.?Colon polyps - K63.5???3.?Gastric ulcer - K25.9??? Plan: * Treatment: * Procedure Codes:?89046 LESIO N REMOVAL COLONOSCOPY, 28389 UPPER GI ENDOSCOPY, BIOPSY * * The named appointment provid er may or may not be the originator of this progress note, and it is not deemed complete until electronically signed by the appointment provider. Sign off status: Pending * Provider:?Randolph Nogueira MD Date:?0 10/14/2024 Generated for Kim villasenor/Princess/eTransmitting on:?11/28/2024 09:13 AM EDT
--- OUTSIDE RECORDS SUMMARY | 2024-11-28 09:13 | XMS_ITS | Patient Health Record ---
Author Organization [facility] Address [address] [place] [address] Care Team Providers Care Dockmaster Name Role Phone Cam acosta, Kermit Primary Care Prov idetony Nogueira Jr, Randolph Unavailable Allergies No Known Allergies Results Component Value Reference Range Notes Type and Screen Reviewed date:06/20/2024 09:16:50 AM Interpretation: Performing Lab:[facility], [address] [place] [phone] Notes/Report: Results at Issue Units as of 06/18/24 1158 ... Test View Group: Most Recent HGB HCT Results LABORATORY Date Time Test Result Flag Normal Range 06/18/24 0804 HGB 8.3 L 14.0-18.0 g/dl 06/18/24 0804 HCT 23.7 L 42.0-52.0 % Hgb 7-9 gm na No no Blood Type AP Antibody Screen NEGATIVE Red Blood Cells Reviewed date:06/20/2024 09:16:57 AM Interpretation: Performing Lab:[facility], [address] [place] [phone] Notes/Report: Red Blood Cells [id number] AP RC Red Blood Cells TRANSFUSED 06/18/24 1157 Red Blood Cells [id number] AP RC Red Blood Cells NOT AVAILABLE Pathology Reviewed date:06/24/2024 09:37:10 PM Interpretation: Performing Lab:[facility], [address] [place] [address], [place] [address] Notes/Report: --- Name: France Kirkland Age/Sex: 79/M : 1945 Unit#: [id number] Attend Dr: Angela Agudelo MD Re06/17/24 Status : DIS IN Location: [facility] 48-1 Disch: 06/21/24 --- SPEC : [id number] RECD : 06/20/24 STATUS: TIERRA ANDRADE NUM: [id number] CATHY: 06/18/24 [facility] DR: Randolph Nogueira MD ENTERED: 06/20/24 [...] France Kirkland Age/Sex: 79/M : 1945 Unit#: [id number] Attend Dr: Angela Agudelo MD Re06/17/24 Status : DIS IN Location: [facility] 482-1 Disch: 06/21/24 --- SPEC : [id number] RECD : 06/20/24 STATUS: TIERRA ANDRADE NUM: [id number] CATHY: 06/18/24 [facility] DR: Randolph Nogueira MD ENTERED: 06/20/24 SP TYPE: Surgical OTHR DR: Angela Agudelo MD ORDERED: HE Stain/3, Gross Micro L4, IHC, H. pylori Copies To: Randolph Nogueira MD [address] [place] [address] Angela Agudelo MD [address] [place] [address] --- Signed (signature on file) Holly Ashton 06/21/24 1426 --- END OF REPORT Complete Blood Count no Diff Reviewed date:06/20/2024 09:16:35 AM Interpretation: Performing Lab:[facility], [address] [place] [address] Notes/Report: White Blood Count 4.6 4.8-10.8 X10*3/uL [...] Panel Reviewed date:06/20/2024 09:16:43 AM Interpretation: Performing Lab:[facility], [address] [place] [phone] Notes/Report: Sodium 138 135-145 mmol/L Potassium 3.9 [...] Diff Reviewed date:06/24/2024 09:37:45 PM Interpretation: Performing Lab:[facility], [address] [place] [phone] Notes/Report: White Blood Count 5.7 4.8-10.8 X10*3/uL [...] PROFILE Reviewed date:06/24/2024 09:36:37 PM Interpretation: Performing Lab:[facility], [address] [place] [phone] Notes/Report: Iron 31 45-160 mcg/dL Total Iron Binding Capacity 257 228-428 mcg/dL Percent Iron Saturation 12 15-50 % Unsaturated Iron Binding 226 Ferritin Reviewed date:06/24/2024 09:37:24 PM Interpretation: Performing Lab:[facility], [address] [place] [phone] Notes/Report: Ferritin 45 20-250 ng/mL Complete Blood Count Auto Di ff Reviewed date:07/05/2024 03:41:05 PM Interpretation: Performing Lab:[facility], [address] [place] [phone] Notes/Report: White Blood Count 5.7 4.8-10.8 X10*3/uL [...] PROFILE Reviewed date:07/05/2024 03:40:58 PM Interpretation: Performing Lab:[facility], [address] [place] [phone] Notes/Report: Iron 103 45-160 mcg/dL Total Iron Binding Capacity 283 228-428 mcg/dL Percent Iron Saturation 36 15-50 % Unsaturated Iron Binding 180 Ferritin Reviewed date:07/05/2024 03:41:16 PM Interpretation: Performing Lab:[facility], [address] [place] [phone] Notes/Report: Ferritin 27 20-250 ng/mL Pathology Reviewed date:10/24/2024 08:53:37 AM Interpretation: Performing Lab:[facility], [address] [place] [phone] Notes/Report: --- Name: SandovalFrance Age/Sex: 79/M : 1945 Unit#: [id number] Attend Dr: Randolph Nogueira MD Re10/14/24 Status : [facility] Location: [facility] Disch: --- SPEC : [id number] RECD : 10/14/24 STATUS: TIERRA ANDRADE NUM: [id number] CATHY: 10/14/24 [facility] DR: Randolph Nogueira MD ENTERED: 10/14/24 [...] France Kirkland Age/Sex: 79/M : 1945 Unit#: [id number] Attend Dr: Randolph Nogueira MD Re10/14/24 Status : [facility] Location: [facility] Disch: --- SPEC : [id number] RECD : 10/14/24 STATUS: VERATohmas LUPE NUM: [id number] CATHY: 10/14/24 [facility] DR: Randolph Ngoueira MD ENTERED: 10/14/24-04 16 SP TYPE: Surgical [...] microscopic examination, multiple pieces in cassette D. ([facility]) Special stains order ed and performed: A/B [...] Problem Status W/U Status Risk Notes Problem [id number] Colon cancer screening (Z12.11) Active confirmed Problem [id number] Acute gastric ulcer with hemorrhage (K25.0) Active confirmed Vital Signs Blood pressure diastolic 00 mm Hg 06/29/2024 Height 5 ft 11 in in 06/29/2024 Blood pressure systolic 00 mm Hg 06/29/2024 Weight 182 lbs 06/29/2024 BMI 25.38 kg/m2 06/29/2024 Encounters Encounter Location Date Provider Diagnosis [facility] Outpatient [address] [place] [phone] 10/14/2024 Randolph Nogueira Jr Colon cancer screening Z12.11 ; Colon polyps K63.5 and Gastric ulcer K25.9 [facility] [address] [place] [address] 06/29/2024 Randolph Nogueira Jr Acute gastric ulcer with hemorrhage K25.0 and Colon cancer screening Z12.11 [facility] [address] [place] [address] 06/22/2024 Randolph Nogueira Jr Acute gastric ulcer with hemorrhage K25.0 [facility] [address] [place] [phone] 06/28/2024 Randolph Nogueira Jr [facility] [address] [place], [place] [address] [address] 07/05/2024 Randolph Leaifford [facility] [address] [place] [address] 07/21/2024 Randolph Leasameera Hsieh [facility] [address] [facility] [place] [address] 08/12/2024 Randolph Nogueira Jr [facility] [address] [facility] [place] [address] 08/18/2024 Randolph Oliverord [facility] [address] [place] [address] 08/19/2024 Randolph Oliverord [facility] [address] [facility] [place] [address] 08/19/2024 Randolph Oliverord [facility] [address] [facility] [place] [address] 08/31/2024 Randolph Leaifford [facility] [address] [facility] [place] [address] 10/24/2024 Randolphroc Nogueira Jr H. pylori infection [...] Provider Name:Randolph wilkerson , 03/27/2025 10:20:00 AM, [address] [place] [address], [address], [place], [address], Insurance Providers Payer Name Payer Address Payer Phone Subscriber Number Group Number Insured Name Patient Relationship to Insured Coverage Start Date Coverage End Date MED[place]ARE OF [place] [address] [place] [address] [id number] ТАТЬЯНА KIRKLAND Self - patient is the insured MEDICAID OF [facility] [address] [place] [address] [id number] ТАТЬЯНА KIRKLAND Self - patient is the insured Medical (General) History Medical History History ICD Code GI bleed with gastric ulcer 07/12 Surgical History Surgery Date(Month/Year) HERNIA REPAIR BILATERAL AGE 4
--- OUTSIDE RECORDS SUMMARY | 2024-11-28 09:13 | XMS_ITS | Encounter Summary ---
Author Organization [employer] Address [address] [facility] [address] [place] [address] Care Team Providers Care Solder Deposit Operator Name Role Phone Kermit Rangel MD Primary Care Prov ider Reason for Visit * Reason Onset Date Comments FYI 09/15/2024 Encounter Details Date Type Department Care Team (Late st Contact Info) Description 09/15/2024 Telephone [facility] MEDICINE [address] [place] [address] Kermit Rangel MD [address] [place], [place] [phone] Social History Tobacco Use Types Packs/Day Years [...] look at labs and contact Kisha at [phone]. documented in this encounter Plan of Treatment Upcoming Encounters Date Type Department Care Team (Late st Contact Info) Description 02/20/2025 8:30 AM EDT Office Visit [facility] MED & PEDS [address] [place] [address] Kermit Rangel MD [address] [place] [address] documented as of this encounter Visit Diagnoses Not on filedocumented in this encounter Additional Health Concerns Assessment Noted Time PHQ-9 Depression Total Score: 0 07/08/20 9:15 AM EST documented as of this encounter Care Teams Solder Deposit Operator Relationship Specialty Start Date End Date Kermit Rangel MD [address] [place] [address] PCP - General Internal Medicine 07/11/24 [place] TOTH 07/28/24 documented as of this encounter
--- OUTSIDE RECORDS SUMMARY | 2024-11-28 09:13 | XMS_ITS ---
Author Organization [facility] Address [address] [place] [address] Care Team Providers Care Toddler Teacher Name Role Phone Cam acosta, Kermit [...] Active Encounters Encounter Location Date Provider Diagnosis [facility] [address] [address] 10/24/2024 Randolph Nogueira Jr H. pylori infection [...] [address] [facility], [address], [place], [address], Progress Notes * ТАТЬЯНА KIRKLAND LDOB:1944 (79 yo M)Acc No.[id number]:10/24/2024 Patient:?ТАТЬЯНА KIRKLAND :1945???Age:79 Y???Sex:Male Address:[address] [place] [address] [address], [place], [address] * Refills? Start Omeprazole Capsule Delayed Release, [...] true * Date:? Generated for Kim villasenor/Princess/eTransmitting on:?11/28/2024 09:13 AM EDT
--- OUTSIDE RECORDS SUMMARY | 2024-11-28 09:13 | XMS_ITS | Clinical Summary ---
Author Organization [employer] Address [address] [facility] [address] [place] [address] Care Team Providers Care Supplier Engineer Name Role Phone Kermit Rangel MD Primary [...] Active Problems Problem Noted Date Diagnosed Date Iron deficiency anemia due to chronic blood loss 11/10/2024 Assessment & Plan (11/10/2024 9:21 AM EDT): Hemoglobin levels stable as per 08/2024 blood work, continue oral iron replacement, follow up on next visit Persistent atrial fibrillation 08/12/2024 Assessment & Plan (11/10/2024 9:18 AM EDT): Followed by cardiology, denied chest pain/shortness of breath, no further palpitation episode Assessment & Plan (08/12/2024 12:39 PM EST): Patient found incidentally with afib on last hospitalization, he was discharged with eliquis, metoprolol, diltiazem and digoxin, has scheduled follow up with cardiology Other hemorrhoids 07/12/2024 Assessment & Plan (11/10/2024 9:18 AM EDT): Underwent hemorroidectomy, followed by surgery Assessment & Plan (08/04/2024 12:31 PM EST): [...] Encounters Date Type Department Care Team Description 11/10/2024 8:30 AM EDT Office Visit [facility] MED & PEDS [address] [place] [address] Kermit Rangel MD Persistent atrial fibrillation (CMS/HCC) (Primary Dx); Other hemorrhoids; Iron deficiency anemia due to chronic blood loss 11/10/2024 Travel 11/03/2024 Travel 10/04/2024 10:15 AM EDT Office Visit [facility] MED & PEDS [address] [place] [address] Ian Jauregui MD Lesion of skin of nose (Primary Dx); Seborrheic keratosis; Decreased hearing of both ears 10/04/2024 Travel 09/15/2024 Telephone [facility] MEDICINE [address] [place] [address] Kermit Rangel MD FYI 09/08/2024 2:15 PM EST Office Visit [facility] MED & PEDS [address] [place] [address] Aletha Waldrop MD Persistent atrial fibrillation (CMS/HCC) (Primary Dx); Preop examination 09/08/2024 Travel 09/06/2024 Telephone [facility] MEDICINE [address] [place] [address] Kermit Rangel MD Pre op from Last [...] your housing situation today? I have arthur arleen 09/08/[address] you li [...] Sign Reading Time Taken Comments Blood Pressure 121/73 11/10/2024 8:41 AM EDT Pulse 62 11/10/2024 8:41 AM EDT Temperature 36.6 ??C (97.8 ??F) 11/10/2024 8:41 AM ED T Respiratory Rate 16 11/10/2024 8:41 AM EDT Oxygen Saturation 96% 11/10/2024 8:41 AM EDT Inhaled Oxygen Concentration - - Weight 83.5 kg (184 lb) 11/10/2024 8:41 AM EDT Height 177.8 cm (5' 10 ) 11/10/2024 8:41 AM EDT Body Mass Index 26.4 11/10/2024 8:41 AM EDT Plan of Treatment Upcoming Encounters Date Type Department Care Team ([facility] st Contact Info) Description 02/20/2025 8:30 AM EDT Office Visit [facility] MED & PEDS [address] [place], [place] [phone] Kermit Rangel MD [address] [place], [place] [phone] Health Maintenance Due Date Last Done Comments DTaP/Tdap/Td Vaccines (1 - Tdap) 1964 Pneumococcal [...] Screening 09/08/2025 09/08/2024 Tobacco Screening 10/04/2025 10/04/2024 Alcohol/Substance Use Screening 11/10/2025 11/10/2024 Lipid Panel 09/13/2029 09/13/2024 HIB Vaccines Aged [...] deficiency anemia due to chronic blood loss from Last 3 Months Results * Destruction of lesion (10/04/2024 12:56 PM EDT) Ian Damon MD - 10/04/2024 12:56 PM EDT Ian Jauregui MD ? 10/04/2024 12:59 PM Destruction of lesion Date/Time: 10/04/2024 12:56 PM Performed by: Ian Jauregui MD Authorized by: Ian Jauregui MD ?? Consent: ??Consent obtained: ??Verbal ??Risks discussed: ??Infection, pain and poor cosmetic result [place] protocol: ??Procedure explained and questions answered to [...] of2 resultswithin the time period is included. Pathologist [facility] Digoxin 0.9 0.8 - 2.0 ng/mL [facility] Comment:Assay modified to mi nimize interference from aldosteroneantagonists (e.g. spironolactone and canrenone). 09/22/2024 7:05 AM EST 09/22/2024 7:05 AM EST us Generic External Data Provider LAB BLOOD ORDERAB LES Final Result [facility] [address] [place] [phone] * Vitamin B12 (Cobalamin) and Folate Panel, Serum (09/13/2024 7:22 AM EST) Pathologist [facility] Vitamin B12 334 200 - 900 pg/mL [facility] Comment:NORMAL 200-900 PG/ML INDETERMINATE 160-199 PG/ML DEFICIENT < 160 PG/ML Folate 10.1 > or = 4.0 ng/mL [facility] Comment:Reference Values:> o r = [...] MD LAB BLOOD ORDERABL ES Final Result [facility] [address] [place] [phone] * (ABNORMAL) CBC auto differential (09/13/2024 7:22 AM EST) White Blood Count 5.5 4.8 - 10.8 X10*3/uL [facility] Red Blood Count 4.52(L) 4.60 - 5.80 X10*6/uL [facility] Hemoglobin 13.1(L) 14.0 - 18.0 g/dl [facility] Hematocrit 39.1(L) 42.0 - 52.0 % [facility] Mean Corpuscular Volume 86.5 80.0 - 98.0 fL [facility] Mean Corpuscular Hemoglobin 29.0 27.0 - 33.0 pg [facility] Mean Corpuscular HGB Conc 33.5 31.0 - 36.0 g/dl [facility] Red Cell Distribution Width 16.0 11.0 - 16.0 % [facility] Platelet Count 143(L) 160 - 400 X10*3/uL [facility] Mean Platelet Volume 10.3 9.4 - 12.4 fL [facility] Neutrophils Percent Auto 71.1 45 - 73 % [facility] Imm Gran Pct Auto 0.5(H) 0.0 - 0.4 % [facility] Lymphocytes Percent Auto 19.3(L) 20 - 40 % [facility] Monocytes Percent Auto 7.1 2 - 11 % [facility] Eosinophils Percent Auto 1.3 0 - 4 % [facility] Basophils Percent Auto 0.7 0 - 2 % [facility] NRBC Pct Auto 0.0 0.0 - 0.2 /100WBC [facility] Neutrophils Absolute Auto 3.9 2.0 - 8.3 x10*3/uL [facility] Imm Gran Abs Auto 0.03 0.00 - 0.03 X10*3/uL [facility] Lymphocytes Absolute Auto 1.1(L) 1.2 - 4.9 X10*3/uL [facility] Monocytes Absolute Auto 0.4 0.1 - 1.2 X10*3/uL [facility] Eosinophils Absolute Auto 0.1 0.0 - 0.4 X10*3/uL [facility] Basophils Absolute Auto 0.0 0.0 - 0.2 X10*3/uL [facility] NRBC Abs Auto 0.000 0.0 - 0.012 X10*3/uL [facility] 09/13/2024 7:22 AM EST 09/13/2024 7:22 AM EST us Generic External Data Provider LAB BLOOD ORDERAB LES Final Result Performing Organization Address [facility] de Phone Number [facility] [address] [place] [phone] * (ABNORMAL) Iron And Total Iron Binding Capacity (09/13/2024 7:22 AM EST) Pathologist [facility] Iron 180(H) 45 - 160 mcg/dL [facility] Total Iron Binding Capacity 289 228 - 428 mcg/dL [facility] Percent Iron Saturation 62(H) 15 - 50 % [facility] Unsaturated Iron Binding 109 ug/dL [facility] Blood Venous blood specimen / Unknown 09/13/2024 7:22 AM EST 09/13/2024 7:22 AM EST us Kermit Tabares MD LAB BLOOD ORDERABL ES Final Result Performing Organization Address [facility] Co de Phone Number [facility] [address] [place] [phone] * Lipid Panel, Standard (09/13/2024 7:22 AM EST) Pathologist [facility] Triglycerides 90 <150 mg/dL [facility] Comment:Desirable Triglyceri de: less than 150 mg/dLBorderline High Triglyceride 150-199 mg/dLHigh Triglyceride: 200-499 mg/dLVery High Triglyceride: greater than or equal to 5OO mg/dL Cholesterol 134 <200 mg/dL [facility] Comment:Desirable Cholestero l: less than 200 mg/dLBorderline High Cholesterol: 200-239 mg/dLHigh Cholesterol: greater than 239 mg/dL LDL Cholesterol Calculated 66 <100 mg/dL [facility] Comment:Desirable LDL: less than 100 mg/dLNear Optimal/Above Optimal LDL: 110- 129 mg/dLBorderline High LDL: 130-159 mg/dLHigh LDL: 160-189 mg/dLVery High LDL: greater than or equal to 190 mg/dL HDL Cholesterol 50 >40 mg/dL [facility] Comment:Desirable HDL: great er than 40 mg/dL Note: This HDL assay may give artificially low results in patients with liver disease. 09/13/2024 7:22 AM EST 09/13/2024 7:22 AM EST us Generic External Data Provider LAB BLOOD ORDERAB LES Final Result Performing Organization Address City/State/[facility] Co de Phone Number [facility] [address] [place] [phone] from Last 3 Months Insurance [facility] STANDARD MEDICARE Care Teams Supplier Engineer Relationship Specialty Start Date End Date Kermit Rangel MD [address] [place] [address] [place] [address] PCP - General Internal Medicine 07/11/24 [place] TOTH 07/28/24
--- OUTSIDE RECORDS SUMMARY | 2024-11-28 09:14 | XMS_ITS | Encounter Summary ---
Author Organization [employer] Address [address] [place] [address] [address] [place] [address] Care Team Providers Care Pricing Specialist Name Role Phone Kermit Rangel MD Primary Care Prov ider Reason for Visit * Reason Onset Date Comments Appointment Request 07/29/2024 Encounter Details Date Type Department Care Team (Late st Contact Info) Description 07/29/2024 Telephone [facility] MEDICINE [address] [place] [address] Kermit Rangel MD [address] [place], [place] [phone] Appointment Request Social History Tobacco Use Types [...] for that day if theres any availability. [phone] documented in this encounter Plan of Treatment Upcoming Encounters Date Type Department Care Team (Late st Contact Info) Description 02/20/2025 8:30 AM EDT Office Visit [facility] MED & PEDS [address] [place] [address] Kermit Rangel MD [address] [place] [address] documented as of this encounter Visit Diagnoses Not on filedocumented in this encounter Additional Health Concerns Assessment Noted Time PHQ-9 Depression Total Score: 0 07/08/20 9:15 AM EST documented as of this encounter Care Teams Pricing Specialist Relationship Specialty Start Date End Date Kermit Rangel MD [address] [place] [address] PCP - General Internal Medicine 07/11/24 [place] TOTH 07/28/24 documented as of this encounter
--- OUTSIDE RECORDS SUMMARY | 2024-11-28 09:14 | XMS_ITS | Encounter Summary ---
Author Organization [employer] Address [address] [facility] [address] [place] [address] Care Team Providers Care Top Coater Name Role Phone Kermit Rangel MD Primary Care Prov ider Encounter Details Date Type Department Care Team (Late st Contact Info) Description 07/11/2024 Telephone [facility] [address] [place] [address] Kermit Rangel MD [address] [place] [address] Social History Tobacco Use Types Packs/Day Years [...] Description 02/20/2025 8:30 AM EDT Office Visit [facility] [address] [place] [address] Kermit Rangel MD [address] [place] [address] documented as of this encounter Visit Diagnoses Not on filedocumented in this encounter Additional Health Concerns Assessment Noted Time PHQ-9 Depression Total Score: 0 07/08/20 9:15 AM EST documented as of this encounter Care Teams Top Coater Relationship Specialty Start Date End Date Kermit Rangel MD [address] [place] [address] PCP - General Internal Medicine 07/11/24 Glenn TOTH 07/28/24 documented as of this encounter
--- OUTSIDE RECORDS SUMMARY | 2024-11-28 09:14 | XMS_ITS | Data Portability ---
Author Organization [place] - [facility], Allergy Address [address] [place] [phone] Assessment Encounter Date Assessment Date Assessment LastModified by Organization Details LastModified Time 11/21/2024 11/21/2024 79yo male presents for evaluation of hearing loss. Cerumen impactions removed bilaterally. Right external ear canal with scant purulence medially. Otologic exam demonstrates TMs are intact with well-aerated middle ear spaces. Recommend topical TobraDex twice daily for 7 days. Reviewed drop administration and water precautions. Patient will return for revaluation in 2 weeks to assess for infection resolution. Will offer audiometric testing once infection resolves if hearing loss persists. Patient agrees with plan. [email or web address] Not available 11/21/2024 14:07:10 Plan of Treatment Reminders Order Date Submit Date Provider Last Modified By Organization Details Last Modified Time Details Appointments Establish ed 15 2024 02:00P M KIMMIE MONTILLA PA-C Not available Not available Not available Hearing Test 2024 02:30P M Hearing Test Not available Not available Not available Lab None recorded. Referral None recorded. Procedures None recorded. Surgeries None recorded. Imaging None recorded. Medication Orders tobramyci n 0.3 %-dexamet hasone 0.1 % eye drops,johnie pension 2024 05 025 [facility], [address], [place], [place], [id number], 11/23/2024 11:19:13 Patient TargetsNo targets recorded. Patient InstructionsNo instructions recorded. Reason for Referral None Reported. Problems Name Problem SNOMED Code Status Onset Date Resolution Date Notes Provider Name and Address Organization Details Recorded Time Otorrhea of right ear [id number] 06 Active 2024 KIMMIE MONTILLA PA-C [address] [facility], [place], [address], [facility] - [facility] 14:01:03 Impacted cerumen of bilateral ears 06201701153531 08 Active 2024 KIMMIE MONTILLA PA-C [address] [facility], [place], [address], [facility] 14:07:14 Problem Notes None recorded. Procedures Surgical History Date Name Laterality Status Provider Name and Address Organization Details Recorded Time Cerumen removal without microscope bilat completed KIMMIE MONTILLA PA-C [address] [facility] [address], [place], [address], [facility] 11/21/2024 14:05:34 Imaging Results None recorded. Procedure Notes None recorded. Medical Equipment None Reported. Allergies No known drug allergies Medications Name Sig Start Date Stop Date Status Note LastModified by Organization Details LastModified Time tetracycline 500 mg capsule TAKE ONE CAPSULE FOUR TIMES DAILY FOR FOURTEEN DAYS active Not Available Not Available No t Available celecoxib 200 mg capsule TAKE ONE CAPSULE DAILY active Not Available Not Available No t Available Vitamin C 500 mg tablet TAKE ONE TABLET EVERY DAY WITH ferrous sulfate active Not Available Not Available No t Available metoprolol tartrate 100 mg tablet TAKE ONE TABLET EVERY TWELVE HOURS active Not Available Not Available No t Available hydrocodone 5 mg-acetamino phen 325 mg tablet TAKE ONE TABLET BY MOUTH EVERY FOUR TO SIX HOURS NEEDED FOR PAIN active Not Available Not Available No t Available meloxicam 15 mg tablet TAKE ONE TABLET BY MOUTH EVERY DAY active Not Available Not Available No t Available thiamine HCl (vitamin B1) 100 mg tablet TAKE ONE TABLET EVERY DAY active Not Available Not Available No t Available metronidazol e 500 mg tablet TAKE ONE TABLET THREE TIMES DAILY FOR FOURTEEN DAYS active Not Available Not Available No t Available digoxin 250 mcg (0.25 mg) tablet TAKE ONE TABLET EVERY DAY active Not Available Not Available No t Available omeprazole 40 mg capsule,ernesto yed release TAKE ONE CAPSULE TWICE DAILY UNTIL 07/22/24, THEN DECREASE TO ONE CAPSULE DAILY active Not Available Not Available No t Available ketorolac 0.5 % eye drops PLACE ONE DROP IN THE AFFECTED EYE(S) THREE TIMES DAILY STARTING TWO DAYS prior TO SURGERY THEN continue DIRECTED active Not Available Not Available No t Available prednisolone acetate 1 % eye drops,suspen florencia PLACE ONE DROP IN THE LEFT EYE FOUR TIMES DAILY FOR FOUR DAYS THEN twice daily FOR FOUR DAYS active Not Available Not Available No t Available ferrous sulfate 325 mg (65 mg iron) tablet TAKE ONE TABLET EVERY DAY active Not Available Not Available No t Available docusate sodium 100 mg capsule TAKE 1 CAPSULE TWICE DAILY IN THE MORNING AND AT BEDTIME NEEDED FOR CONSTIPATIO N active Not Available Not Available No t Available bismuth subsalicylat e 262 mg chewable tablet CHEW TWO TABLETS FOUR TIMES DAILY FOR FOURTEEN DAYS active Not Available Not Available No t Available omeprazole 20 mg capsule,ernesto yed release TAKE ONE CAPSULE TWICE DAILY FOR FOURTEEN DAYS active Not Available Not Available No t Available diltiazem CD 120 mg capsule,exte nded release 24 hr TAKE ONE CAPSULE DAILY active Not Available Not Available No t Available folic acid 1 mg tablet TAKE ONE TABLET EVERY DAY active Not Available Not Available No t Available bisacodyl 5 mg tablet,delay ed release TAKE TWO TABLETS AT 3pm AND 7pm FOR ONE DAY active Not Available Not Available Not Available digoxin 125 mcg (0.125 mg) tablet TAKE ONE TABLET EVERY DAY active Not Available Not Available No t Available metoprolol succinate ER 25 mg tablet,exten ded release 24 hr TAKE ONE TABLET EVERY DAY active Not Available Not Available No t Available polyethylene glycol 3350 17 gram/dose oral powder MIX WITH gatorade or crystal light and begin drinking at 5pm the day before procedure active Not Available Not Available No t Available tobramycin 0.3 %-dexamethas one 0.1 % eye drops,suspen florencia INSTILL 4 DROPS INTO RIGHT EAR TWICE DAILY FOR 7 DAYS 2024 active Not Available Not Available Not Avai lable Eliquis 5 mg tablet TAKE ONE TABLET TWICE DAILY active Not Available Not Available Not Available Vitals Date Recorded Body height Body mass index (BMI) Body weight Provider Name and Address Organization Details Last Updated DateTime 11/21/2024 180.34 cm 25.8 kg/m2 38816.59 g Veronica Marshall [place] - [facility] 11/21/2024 13:11:35 Social History None recorded. Functional Status None recorded. Mental Status None recorded. Family History Nothing Reported. Medical History Condition Response Allergies/Hayfever N Heart Problems N Anxiety N Tonsil Infections N Emphysema N Migraines N Thyroid Problems N Glaucoma N Developmental Delay N Depression N COPD N Nasal or Sinus Problems N Anemia N Immune System Disorder N Anesthesia Complications N Heart Attack ([place]) Y Other Skin Condition N Diabetes N Rhinitis N Bleeding Disorder N Food Allergy N Hearing Loss N Arthritis N Hyperlipidemia N Cancer N Stroke N Dementia N Nasal polyps N Asthma N Sleep Disorder N High Cholesterol N GERD/Reflux N Liver Disease N Headaches N Fibromyalgia N Hypertension N Speech Delay N Kidney Disease N Past Encounters Encounter ID Performer Location Encounter Start Date Encounter Closed Date Diagnosis/Indication Diagnosis SNOMED-CT Code Diagnosis ICD10 Code Diagnosis Note [id number] KIMMEI MONTILLA PA-C [facility] [address] [address] 11/21/2024 12:44:15 11/21/2024 14:48:35 Otorrhea of right ear [id number] 626876 H92.11 Impacted c erumen of bilateral ears [id number] 006981 H61.23 Health Concerns Section Related Observation LastModified by Organization Detai ls LastModified Time None Recorded Concern Status LastModified by Organization Details LastModified Time None Recorded Advance Directives Directive None Recorded Payers Insurance Date Sequence Insurance Name Policy Number Policy Sosa Covered Member ID Sosa Member ID Guarantor Name 11/02/2024 2 [employer] Geovanni L Sandoval [id number] Parmele Sandoval 11/21/2024 2 [place] [facility] Geovanni L Sandoval [id number] Parmele Sandoval 11/21/2024 1 MEDICARE B-[place]: [facility] [employer] Geovanni L Sandoval [id number] Parmele Sandoval 11/02/2024 2 [place] [facility] Geovanni L Sandoval [id number] Parmele Sandoval Notes Date Note Type Note Provider Name and Address Organization Details Recorded Time 11/21/2024 text/html 79yo male presents for evaluation of hearing loss. This has been gradual for many years, worse in the right ear. Denies ear pain, drainage, or dizziness. Denies prior ear infections or ear surgeries. Excessive Qtip use. KIMMIE MONTILLA PA-C [address] [place] [address], [place], [address], [facility] - [facility] 11/21/2024 14:07:37
--- OUTSIDE RECORDS SUMMARY | 2024-11-28 09:14 | XMS_ITS ---
Author Organization [facility] Address [address] [place] [address] Care Team Providers Care Vice President Business Development Name Role Phone Cam acosta, Kermit Primary Care Prov ider Chip Nogueira Jr, Randolph Saunders [phone] REASON FOR VISIT FYI Encounters Encounter Location Date Provider Diagnosis [facility] [address] [place] [address] 08/31/2024 Randolph Nogueira Jr Plan Of Treatment Next Appt Details Provider Name:Randolph wilkerson Jr, 03/27/2025 10:20:00 AM, [address], [address], [place], [address], Progress Notes * ТАТЬЯНА KIRKLAND LDOB:1944 (79 yo M)Acc No.[id number]:08/31/2024 Patient:?ТАТЬЯНА KIRKLAND Eduardo :1945???Age:79 Y???Sex:Male Address:[address], [place], [address] * true * Date:? Generated for Printi ng/Negritag/eTransmitting on:?11/28/2024 09:14 AM EDT
[2024-11-28 09:17] VITALS: BP 146/78; PULSE 96; BMI 26.6
== END 2024-11-28 09:21 | disposition home or self-care (01) ==
LOC: HO.HGS 09:06
PROVIDERS: Visit Provider Surgery
DX: K64.9 Unspecified hemorrhoids (principal)
CPT/HCPCS: 99024

== ENCOUNTER → 2024-11-28 09:05 | Outpatient (BNVA) | payer MEDICARE, SELFPAY | PROVIDERS: Visit Provider Surgery | DX: Z48.815 Encounter for surgical aftercare following surgery on the digestive system (principal); Z98.890 Other specified postprocedural states; Z79.01 Long term (current) use of anticoagulants | CPT/HCPCS: 99212 ==

== ENCOUNTER 2024-12-19 13:17 | Outpatient (AMB) | payer MEDICARE, SELFPAY ==
[2024-12-19 13:24] VITALS: BP 130/62; PULSE 66; BMI 27.2
--- NOTE | 2024-12-19 13:24 | A.OFFVIS_ITS ---
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 Knee Totyxi-K-Goae mis) As directed digoxin 125 mcg PO DAILY diltiazem HCl CD 120 mg PO DAILY docusate sodium 100 mg PO DAILY ferrous sulfate 325 mg DAILY folic acid 1 mg PO DAILY hydrocodone-acetaminophen 5-325 mg 1 tab PO Q4-6H PRN metoprolol tartrate 100 mg See Protocol PO Q12H omeprazole 40 mg PO BID@0630,1630 thiamine mononitrate (vit B1) 100 mg PO DAILY HPI Comments Details: Pleasant 79 year gentleman who is here for follow-up. He was seen in the hospital in June when he presented with GI bleed and had nonsustained VT. He had echocardiography performed at that time which showed basal inferior wall motion abnormality. 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 Transient ischemic dilatation was not noted. He presented again and had atrial fibrillation along with GI bleed. He was rate controlled and eventually started on Eliquis. He underwent upper and lower endoscopy which did not show any significant bleeding source. He had some polyps removed. He is returning and is complaining of shortness of breath with activities. He is saying that even short distances he gets out of breath very easily. He was a former smoker many years ago but was not a heavy smoker. He is denying any lung disease. Continues to be in atrial fibrillation but clinically not in heart failure. [facility] Medical History Hemorrhoids Daily consumption of alcohol Arthritis Iron deficiency anemia Gastric ulcer Atrial fibrillation with RVR Orthostasis NSVT (nonsustained ventricular tachycardia) Upper gastrointestinal bleed Surgical History H/O hemorrhoidectomy (11/04/24) Hx of hernia repair History of esophagogastroduodenoscopy (EGD) Social History Household Members: None Housing: Apartment Do you presently have visiting nurse or other home services: No Alcohol intake: current Alcohol intake frequency: 0-2 drinks per day Alcohol type: beer Patient Tobacco Use Status: Former Tobacco user service: No Review of Systems Const Denies chills, Denies fatigue, Denies fever(s), Denies frequent falls, Denies weakness, Denies weight gain and Denies weight loss ENT Denies dizziness Card Denies chest pain, Denies leg edema, Denies lightheadedness, Denies palpitations, Denies dyspnea and Reports dyspnea on exertion Resp Denies cough, Denies dyspnea and Reports dyspnea on exertion GI Denies hematochezia Musc Denies abnormal gait, Denies muscle weakness, Denies numbness, Denies radiating pain into limb and Denies tingling Neuro Denies abnormal gait, Denies dizziness, Denies frequent falls, Denies numbness, Denies tingling and Denies weakness Endo Denies fatigue and Denies palpitations Physical Exam Vital Signs: Last Vital Signs Pulse 66 12/19/24 13:24 BP 130/62 12/19/24 13:24 BMI result Body Mass Index 27.2 GENERAL APPEARANCE: in no acute distress, pleasant. NECK: no carotid bruit, no jugular venous distention. SKIN: no suspicious lesions, warm and dry. HEART: no murmurs, irregular rate and rhythm. LUNGS: clear to auscultation bilaterally. ABDOMEN: soft, nontender. EXTREMITIES: no edema. PERIPHERAL PULSES: equal. NEUROLOGIC: No gross deficits, AAO X 3 Assessment & Plan Assessment & Plan (1) Atrial fibrillation: Code(s): I48.91 - Unspecified atrial fibrillation Category: Medical (2) Abnormal stress test: Code(s): R94.39 - Abnormal result of other cardiovascular function study Category: Medical (3) Dyspnea on exertion: Code(s): R06.09 - Other forms of dyspnea Category: Medical Plan 79-year-old gentleman who is here for follow-up. He previously had GI blood loss but endoscopy did not show any source for ongoing bleeding. He had healed peptic ulcer disease noted which could be the cause for GI blood loss. He also had some polyps. Overall he has been stable from bleeding point of view. Blood pressure is well controlled. Heart rate is well controlled currently with diltiazem, digoxin and metoprolol. Taking Eliquis 5 mg twice a day. He is complaining of dyspnea with activities. He had abnormal nuclear perfusion imaging in the past as well as echocardiography showing basal inferior hypokinesis. We discussed about diagnostic cardiac catheterization and is agreeable and I am going to arrange that for him. We will also check basic labs including iron profile. Thank you for allowing me to participate in the care of your patient. Please feel free to contact me if you have any questions. Orders: Orders Prothrombin Time INR Today R94.39 - Abnormal result of other cardiovascular function study Cardiac Cath LT Diagnostic Today R94.39 - Abnormal result of other cardiovascular function study Basic Metabolic Panel Today R94.39 - Abnormal result of other cardiovascular function study Complete Blood Count no Diff Today R94.39 - Abnormal result of other cardiovascular function study IRON PROFILE Today R94.39 - Abnormal result of other cardiovascular function study Coding Level of Care Code Est Pt Level 4 (85109) Diagnoses Atrial fibrillation I48.91 Abnormal stress test R94.39 Dyspnea on exertion R06.09
--- OUTSIDE RECORDS SUMMARY | 2024-12-19 14:22 | XMS_ITS ---
Author Organization [facility] Address [address] [place] [address] Care Team Providers Care Instruction Assistant Principal Name Role Phone Cam acosta, [place] Primary Care Prov ider Randolph Miguel Jr [phone] REASON FOR VISIT gastric ulcer, screening Encounters Encounter Location Date Provider Diagnosis [facility] Outpatient [address] [place] [phone] 10/14/2024 Randolph Nogueira Jr Colon cancer screening [...] Name:Randolph wilkerson Jr, 03/27/2025 10:20:00 AM, [address], [address], [place], [address], Progress Notes * ТАТЬЯНА KIRKLAND LDOB:1944 (79 yo M)Acc No.[id number]:10/14/2024 EGD and COL/MAC Patient:?ТАТЬЯНА KIRKLAND Eduardo Provider:?Randolph Nogueira MD :1945???Age:79 Y???Sex:Male Pernell e:10/14/2024 Address:[address] [place] [address] [address], [facility] Pcp:Kermit porter md Subjective: * Chief Complaints: * ???1. Gastric ulcer, screeni ng. * Medical History:? Objective: * Vitals:? Assessment: * Assessment: 1.?Colon cancer screening - Z12.11 (Primary)???2.?Colon polyps - K63.5???3.?Gastric ulcer - K25.9??? Plan: * Treatment: * Procedure Codes:?78141 LESIO N REMOVAL COLONOSCOPY, 53914 UPPER GI ENDOSCOPY, BIOPSY * * The named appointment provid er may or may not be the originator of this progress note, and it is not deemed complete until electronically signed by the appointment provider. Sign off status: Pending * Provider:?Randolph Nogueira MD Date:?0 10/14/2024 Generated for Kim villasenor/Princess/eTransmitting on:?12/19/2024 02:21 PM EDT
== END 2024-12-19 14:02 | disposition home or self-care (01) ==
LOC: HO.HCS 13:18
PROVIDERS: PCP Internal Medicine; Visit Provider Internal Medicine Cardiovascular Disease
DX: I48.91 Unspecified atrial fibrillation (principal); R94.39 Abnormal result of other cardiovascular function study; R06.09 Other forms of dyspnea
CPT/HCPCS: 99214

== ENCOUNTER → 2024-12-19 13:17 | Outpatient (BNVA) | payer MEDICARE, OTHER, SELFPAY | PROVIDERS: PCP Internal Medicine; Visit Provider Internal Medicine Cardiovascular Disease | DX: I48.91 Unspecified atrial fibrillation (principal); R94.39 Abnormal result of other cardiovascular function study; R06.09 Other forms of dyspnea | CPT/HCPCS: 99212 ==

== ENCOUNTER 2024-12-21 07:00 | Outpatient (REF) | payer MEDICARE, OTHER, SELFPAY ==
[2024-12-21 07:49] LABS: Hematocrit 44.2 % (42.0-52.0); Mean Corpuscular HGB Conc 33.9 g/dl (31.0-36.0); Mean Corpuscular Hemoglobin 31.7 pg (27.0-33.0); Mean Corpuscular Volume 93.4 fL (80.0-98.0); Mean Platelet Volume 10.5 fL (9.4-12.4); Platelet Count 152 X10*3/uL (160-400); Red Blood Count 4.73 X10*6/uL (4.60-5.80); Red Cell Distribution Width 14.4 % (11.0-16.0); White Blood Count 6.2 X10*3/uL (4.8-10.8)
[2024-12-21 07:58] LABS: INTERNATIONAL NORM RATIO 1.3 (0.9-1.1); Prothrombin Time 14.5 SEC (10.9-12.4)
[2024-12-21 08:27] LABS: Anion Gap 11 (12-20); Blood Urea Nitrogen 10 mg/dL (9-16); Carbon Dioxide 31 mmol/L (22-29); Chloride 102 mmol/L (96-108); Estimated Glomerular Filt Rate > 60; Glucose Random 82 mg/dL (60-115); Iron 219 mcg/dL (45-160); Percent Iron Saturation 63 % (15-50); Potassium 4.4 mmol/L (3.3-5.1); Sodium 140 mmol/L (135-145); Total Iron Binding Capacity 348 mcg/dL (228-428); Unsaturated Iron Binding 129 ug/dL
== END 2024-12-21 07:01 | disposition home or self-care (01) ==
LOC: HO.LAB 07:00
PROVIDERS: PCP Internal Medicine; Visit Provider Internal Medicine Cardiovascular Disease
DX: R94.39 Abnormal result of other cardiovascular function study (principal); Z79.01 Long term (current) use of anticoagulants
CPT/HCPCS: 36415; 80048; 83540; 85027; 85610

== ENCOUNTER 2024-12-28 09:15 | Outpatient (AMB) | payer MEDICARE, MEDICAID, SELFPAY ==
--- NOTE | 2024-12-28 09:18 | MHC.OFFVIS ---
Vital Signs 12/28/24 09:22 Height 5 ft 11 in Weight 198 lb BMI 27.6 BP 126/73 Blood Pressure Location Rt brachial Position Sitting Pulse 52 Intake Visit Reasons: 1mth s/p hemorrhoidectomy Intake Note: Patient here 2m s/p hemorrhoidectomy. Reports incision healed well. Patient c/o: no concerns. Reports normal BM. Denies constipation, diarrhea. 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 Wood last October,. I had seen him last month because of his persistent drainage. He says this has resolved. He says he feels well overall. He has bowel movements are good and he does denies any pain or bleeding. [facility] Medical History Hemorrhoids Daily consumption of alcohol Arthritis Iron deficiency anemia Gastric ulcer Atrial fibrillation with RVR Orthostasis NSVT (nonsustained ventricular tachycardia) Upper gastrointestinal bleed Surgical History H/O hemorrhoidectomy (11/04/24) Hx of hernia repair History of esophagogastroduodenoscopy (EGD) Social History Household Members: None Housing: Apartment Do you presently have visiting nurse or other home services: No Alcohol intake: current Alcohol intake frequency: 0-2 drinks per day Alcohol type: beer Patient Tobacco Use Status: Former Tobacco user service: No Review of Systems Const Denies chills and Denies fever(s) Physical Exam Const General: comfortable and no acute distress Resp Effort & Inspection: normal respiratory effort GI Other: Rectal exam shows the hemorrhoidectomy sites to be well healed Assessment & Plan Assessment & Plan (1) Hemorrhoids: Code(s): K64.9 - Unspecified hemorrhoids Category: Surgical Plan: Status post hemorrhoidectomy. The surgical site is now well healed. He denies any drainage, pain or bleeding I advised him on the benefits of avoiding straining and constipation. I recommended to him a high fiber diet He can follow up on a p.r.n. basis. Coding Level of Care Code Global (32510) Diagnoses Hemorrhoids K64.9
[2024-12-28 09:22] VITALS: BP 126/73; PULSE 52; BMI 27.6
--- OUTSIDE RECORDS SUMMARY | 2024-12-28 09:55 | XMS_ITS ---
Author Organization [facility] Address [address] [place] [address] Care Team Providers Care Blankbook Stitching Machine Operator Name Role Phone Cam acosta, [place] Primary Care Prov ider Randolph Miguel Jr [phone] REASON FOR VISIT gastric ulcer, screening Encounters Encounter Location Date Provider Diagnosis [facility] [place] [address] [place] [phone] 10/14/2024 Randolph Nogueira Jr Colon cancer screening [...] Name:Randolph wilkerson Jr, 03/27/2025 10:20:00 AM, [address], [address], [place], [address], Progress Notes * ТАТЬЯНА KIRKLAND LDOB:1944 (79 yo M)Acc No.[id number]:10/14/2024 EGD and COL/MAC Patient:?ТАТЬЯНА KIRKLAND Eduardo Provider:?Randolph Nogueira MD :1945???Age:79 Y???Sex:Male Pernell e:10/14/2024 Address:[address] [place] [address] [address], [facility] Pcp:Kermit porter md Subjective: * Chief Complaints: * ???1. Gastric ulcer, screeni ng. * Medical History:? Objective: * Vitals:? Assessment: * Assessment: 1.?Colon cancer screening - Z12.11 (Primary)???2.?Colon polyps - K63.5???3.?Gastric ulcer - K25.9??? Plan: * Treatment: * Procedure Codes:?44430 LESIO N REMOVAL COLONOSCOPY, 17256 UPPER GI ENDOSCOPY, BIOPSY * * The named appointment provid er may or may not be the originator of this progress note, and it is not deemed complete until electronically signed by the appointment provider. Sign off status: Pending * Provider:?Randolph Nogueira MD Date:?0 10/14/2024 Generated for Kim villasenor/Princess/eTransmitting on:?12/28/2024 09:55 AM EDT
== END 2024-12-28 09:38 | disposition home or self-care (01) ==
LOC: HO.HGS 09:15
PROVIDERS: Visit Provider Surgery
DX: K64.9 Unspecified hemorrhoids (principal)
CPT/HCPCS: 99024

== ENCOUNTER → 2024-12-28 09:15 | Outpatient (BNVA) | payer MEDICARE, SELFPAY | PROVIDERS: Visit Provider Surgery | DX: Z48.815 Encounter for surgical aftercare following surgery on the digestive system (principal); Z98.890 Other specified postprocedural states | CPT/HCPCS: 99212 ==

== ENCOUNTER → 2025-01-12 23:59 | Outpatient (BNV) | payer MEDICARE, MEDICAID, SELFPAY | PROVIDERS: Visit Provider Internal Medicine Cardiovascular Disease | DX: I25.10 Atherosclerotic heart disease of native coronary artery without angina pectoris (principal); I50.9 Heart failure, unspecified; R06.02 Shortness of breath; R93.1 Abnormal findings on diagnostic imaging of heart and coronary circulation | CPT/HCPCS: 93458; 99152 ==

== ENCOUNTER 2025-02-02 07:58 | Outpatient (AMB) | payer MEDICARE, MEDICAID, SELFPAY ==
--- OUTSIDE RECORDS SUMMARY | 2024-08-26 06:00 | XMS_ITS ---
Author Organization [facility] Address [address] [place] [address] Care Team Providers Care Single Needle Operator Name Role Phone Cam acosta, Kermit Primary Care Prov ider Randolph Miguel Jr REASON FOR VISIT acute gastric ulcer w/ hemorrh Encounters Encounter Location Date Provider Diagnosis [facility] [place] [address] [place] [id number] 08/26/2024 Randolph Nogueira Jr Plan Of Treatment Next Appt Details Provider Name:Randolph wilkerson Jr, 03/27/2025 10:20:00 AM, [address], [address], [place], [address], Progress Notes * ТАТЬЯНА KIRKLAND LDOB:1944 (79 yo M)Acc No.[id number]:08/26/2024 EGD and COL/MAC Patient: ТАТЬЯНА NAPOLES Provider: Blanca Nogueira MD :1945 A ge:79 Y S ex:Male Date:08/26/2024 Address:[address] [place] [address] [address], [id number] Pcp:Kermit porter md Subjective: * Chief Complaints: [...] 08/26/2024 Generated for Kim villasenor/Princess/Rod on: 0 02/02/2025 08:01 AM EDT
--- OUTSIDE RECORDS SUMMARY | 2025-02-02 08:01 | XMS_ITS | Clinical Summary ---
Author Organization [employer] Address [address] [facility] [address] [place] [address] Care Team Providers Care Tower Observer Name Role Phone Kermit Rangel MD Primary [...] Type Department Care Team Description 01/16/2025 Telephone [facility] [address] [place] [phone] Kermit Rangel MD 01/11/2025 Telephone [facility] [address] [place] [address] Kermit Rangel MD 01/10/2025 Refill [facility] [address] [place] [address] Aletha Waldrop MD 11/10/2024 8:30 AM EDT Office Visit [facility] [address] [place] [address] Kermit Rangel MD Persistent atrial fibrillation (CMS/HCC) [...] Description 02/20/2025 8:30 AM EDT Office Visit [facility] [address] [place] [address] Kermit Rangel MD [address] [place], [place] [phone] Health Maintenance Due Date Last Done Comments [...] EDT) Iron 219(H) 45 - 160 mcg/dL [facility] Total Iron Binding Capacity 348 228 - 428 mcg/dL [facility] Percent Iron Saturation 63(H) 15 - 50 % [facility] Unsaturated Iron Binding 129 ug/dL [facility] 12/21/2024 7:10 AM EDT 12/21/2024 7:10 AM EDT us Generic External Data Provider LAB BLOOD ORDERAB LES Final Result [facility] [address] [place] [address] [phone] * (ABNORMAL) Prothrombin Time-INR (12/21/2024 7:10 AM EDT) Prothrombin Time 14.5(H) 10.9 - 12.4 SEC [facility] INTERNATIONAL NORM RATIO 1.3(H) 0.9 - 1.1 [facility] Comment:INTERNATIONAL NORMAL IZED RATIO (INR) [...] Provider LAB BLOOD ORDERAB LES Final Result [facility] [address] [place] [phone] * (ABNORMAL) CBC (12/21/2024 7:10 AM EDT) White Blood Count 6.2 4.8 - 10.8 X10*3/uL [facility] Red Blood Count 4.73 4.60 - 5.80 X10*6/uL [facility] Hemoglobin 15.0 14.0 - 18.0 g/dl [facility] Hematocrit 44.2 42.0 - 52.0 % [facility] Mean Corpuscular Volume 93.4 80.0 - 98.0 fL [facility] Mean Corpuscular Hemoglobin 31.7 27.0 - 33.0 pg [facility] Mean Corpuscular HGB Conc 33.9 31.0 - 36.0 g/dl [facility] Red Cell Distribution Width 14.4 11.0 - 16.0 % [facility] Platelet Count 152(L) 160 - 400 X10*3/uL [facility] Mean Platelet Volume 10.5 9.4 - 12.4 fL [facility] NRBC Pct Auto 0.0 0.0 - 0.2 /100WBC [facility] NRBC Abs Auto 0.000 0.0 - 0.012 X10*3/uL [facility] 12/21/2024 7:10 AM EDT 12/21/2024 7:10 AM EDT Generic External Data Provider LAB BLOOD ORDERAB LES Final Result Performing Organization Address [facility]/ZIP Co de Phone Number [facility] [address] [place] [phone] * (ABNORMAL) Basic Metabolic Panel (12/21/2024 7:10 AM EDT) Sodium 140 135 - 145 mmol/L [facility] Potassium 4.4 3.3 - 5.1 mmol/L [facility] Chloride 102 96 - 108 mmol/L [facility] Carbon Dioxide 31(H) 22 - 29 mmol/L [facility] Anion Gap 11(L) 12 - 20 [facility] Urea Nitrogen (BUN) 10 9 - 16 mg/dL [facility] Creatinine, Serum 0.85 0.5 - 1.4 mg/dL [facility] Estimated Glomerular Filt Rate >60 [facility] Comment:Chronic Kidney Disea se: Estimated GFR < 60 mL/min/[id number] Kidney Disease: Estimated GFR < 15 mL/min/1.73m2 Glucose 82 60 - 115 mg/dL [facility] Calcium 9.0 8.4 - 10.2 mg/dL [facility] 12/21/2024 7:10 AM EDT 12/21/2024 7:10 AM EDT us Generic External Data Provider LAB BLOOD ORDERAB LES Final Result Performing Organization Address [facility]/ZIP Co de Phone Number [facility] [address] [place] [phone] * Lipid Panel, Standard (09/13/2024 7:22 AM EST) Triglycerides 90 <150 mg/dL [facility] Comment:Desirable Triglyceri de: less than 150 mg/dLBorderline High Triglyceride 150-199 mg/dLHigh Triglyceride: 200-499 mg/dLVery High Triglyceride: greater than or equal to 5OO mg/dL Cholesterol 134 <200 mg/dL [facility] Comment:Desirable Cholestero l: less than 200 mg/dLBorderline High Cholesterol: 200-239 mg/dLHigh Cholesterol: greater than 239 mg/dL LDL Cholesterol Calculated 66 <100 mg/dL [facility] Comment:Desirable LDL: less than 100 mg/dLNear Optimal/Above Optimal LDL: 110- 129 mg/dLBorderline High LDL: 130-159 mg/dLHigh LDL: 160-189 mg/dLVery High LDL: greater than or equal to 190 mg/dL HDL Cholesterol 50 >40 mg/dL [facility] Comment:Desirable HDL: great er than 40 mg/dL Note: This HDL assay may give artificially low results in patients with liver disease. 09/13/2024 7:22 AM EST 09/13/2024 7:22 AM EST us Generic External Data Provider LAB BLOOD ORDERAB LES Final Result Performing Organization Address City/State/[facility] Co de Phone Number [facility] [address] [place] [phone] from Last 3 Months or Most Recently Relevant to Health Maintenance Insurance 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
[2025-02-02 08:16] VITALS: BP 100/72; PULSE 83; BMI 27.0
--- NOTE | 2025-02-02 08:16 | MHC.OFFVIS ---
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 Knee Xrtnzk-L-Fhro [facility]) As directed digoxin 125 mcg PO DAILY diltiazem HCl CD 120 mg PO DAILY metoprolol tartrate 100 mg See Protocol PO Q12H HPI HPI 2 wk s/p cath KM: Details: Geovanni is an 79-year-old male with past medical history of daily alcohol use, knee arthritis, GI bleed Dec with endoscopy showing gastric ulcer. He was put on PPI and transfused. During that admission he was noted to have NSVT runs and was seen by Cardiology. He was started on metoprolol. An echocardiogram showed normal EF and basal inferior hypokinesis. He was readmitted a month later with weakness and rectal bleeding. He was found to have hemorrhoids and has since undergone hemorrhoidectomy. He has been found to have new onset persistent atrial fibrillation and was treated with heart rate control. He was started on Eliquis for anticoagulation and his H&H remained stable. On last visit he reported shortness of breath and underwent cardiac catheterization showing no significant coronary artery disease. He now presents for follow-up. Today he reports he is scheduled for a cardioversion on 02/07/2025. He continues to have some shortness of breath with exertional activities. He has no shortness of breath at rest, PND, orthopnea or edema. No heart palpitations, lightheadedness, presyncope, syncope. He denies chest discomfort at rest or with activity. His right radial catheterization site is feeling good. He has been doing light physical activity. No bleeding issues reported. Taking all meds as directed. [facility] Medical History Hemorrhoids Daily consumption of alcohol Arthritis Iron deficiency anemia Gastric ulcer Atrial fibrillation with RVR Orthostasis NSVT (nonsustained ventricular tachycardia) Upper gastrointestinal bleed Surgical History H/O hemorrhoidectomy (11/04/24) Hx of hernia repair History of esophagogastroduodenoscopy (EGD) Social History Household Members: None Housing: Apartment Do you presently have visiting nurse or other home services: No Alcohol intake: current Alcohol intake frequency: 0-2 drinks per day Alcohol type: beer Patient Tobacco Use Status: Former Tobacco user service: No Review of Systems Const All systems reviewed & are unremarkable except as noted in HPI and below ENT Denies no additional complaints and Denies dizziness Card Denies chest pain, Denies chest pain at rest, Denies chest pain with activity, Denies rapid heart rate, Denies pedal edema, Denies edema, Denies leg edema, Denies lightheadedness, Denies palpitations, Denies dyspnea, Reports dyspnea on exertion and Denies orthopnea Resp Denies cough, Denies dyspnea and Reports dyspnea on exertion GI Denies hematochezia and Denies change in stool character Musc Denies abnormal gait, Denies limited range of motion, Denies muscle cramps, Denies muscle weakness, Denies numbness, Denies radiating pain into limb, Denies stiffness and Denies tingling Neuro Denies abnormal gait, Denies dizziness, Denies numbness and Denies tingling Endo Denies palpitations Physical Exam Vital Signs: BMI result Body Mass Index 27.0 Const General: cooperative, healthy appearing, comfortable and no acute distress Orientation/consciousness: patient oriented x3 Neck Neck: Yes normal visual inspection Resp Effort & Inspection: normal respiratory effort Auscultation: clear to auscultation bilaterally, no rales, no rhonchi and no wheezes Cardio Jugular venous distension: no JVD Heart sounds: S1 normal heart sound present, S2 normal heart sound present, no gallops, no murmurs and no rubs Neuro General: patient oriented x3 Extrem Other: right radial cath site with easily palpable radial pulse, normal right hand assessment General: Yes normal to inspection, No no pedal edema and No calf tenderness Psych Appearance: grossly normal Mental Status: mental status grossly normal Speech and movement: Normal speech and movement present Office Procedures EKG Details: Today, read by me, Atrial fibrillation, incomplete RBBB, rate 83, Qtc 399ms [id number], Complete Assessment & Plan Assessment & Plan (1) Atrial fibrillation: Code(s): I48.91 - Unspecified atrial fibrillation Category: Medical Plan: New finding of atrial fibrillation when he [place] [facility] [place] with weakness and rectal bleeding. He was treated for heart rate control and started on Eliquis for anticoagulation. Chads Vasc score of 2. He has been monitored without any signs of recurrent GI bleeding. Last Echocardiogram 06/20/2024 showed EF 55-60%, basal inferior hypokinetic, mild pulmonary hypertension, left atrium severely dilated, right atrium likely dilated. A Holter monitor done 08/10/2024 for 3 days shows AFib, rate 69, pauses noted ranging 2.5-4 seconds. Nuclear stress test 08/10/2024 shows infarcted basal inferior wall without clear evidence of ischemia. He did have cardiac catheterization on 01/12/2025 showing lad minimal irregularities. He has symptom of shortness of breath with exertion in his scheduled to undergo cardioversion on 02/07/2025. Instructed to hold digoxin the day of his procedure. Continue other medications. Cardiology follow-up 2-3 weeks post cardioversion, sooner if needed. (2) S/P cardiac cath: Comment: 01/12/2025 lad minimal irregularities Code(s): Z98.890 - Other specified postprocedural states Category: Surgical Plan: Right radial catheterization site well healed (3) NSVT (nonsustained ventricular tachycardia): Comment: noted during admission for upper GI bleed Code(s): I47.29 - Other ventricular tachycardia Category: Medical Plan: During June admission he was noted to have NSVT episode on tele monitoring. He was started on metoprolol. An echocardiogram showed normal EF. He has been feeling well with no concerning symptoms. Catheterization is showing no significant coronary artery disease. Plan I discussed with the patient the upcoming cardioversion procedure, explaining the process, including sedation and potential repeat shocks if atrial fibrillation persists. The patient was advised to withhold digoxin on the day of the procedure and to continue other medications. We also discussed the importance of hydration to prevent dehydration in hot weather. Follow-up was planned post-procedure to evaluate the success of the cardioversion and to monitor for any recurrence of atrial fibrillation. Patient Instructions: - Withhold digoxin on the day of the cardioversion procedure. ( the day before if taken in afternoon) - Continue taking other prescribed medications, including diltiazem, Toprol, and Eliquis. - Ensure adequate hydration, especially in hot weather, to prevent dehydration. - Follow up post-procedure to assess the effectiveness of the cardioversion. Patient was informed and verbally consented to the use of an ambient scribe for clinic note documentation during this visit. Visit time spent on chart review, interview, assessment, orders, documentation. Coding Level of Care Code Est Pt Level 4 (98919) Complex EM visit Add On G2211 Diagnoses Atrial fibrillation I48.91 S/P cardiac cath Z98.890 NSVT (nonsustained ventricular tachycardia) I47.29 CPT Codes EKG - CPT: 41012-[id number], Complete ([id number]) Time Spent (min) 32
== END 2025-02-02 08:44 | disposition home or self-care (01) ==
LOC: HO.HCS 07:59
PROVIDERS: PCP Internal Medicine; Visit Provider Nurse Practitioner Family
DX: I48.91 Unspecified atrial fibrillation (principal); Z98.890 Other specified postprocedural states; I47.29 Other ventricular tachycardia
CPT/HCPCS: 93010; 99214; G2211

== ENCOUNTER → 2025-02-02 07:58 | Outpatient (BNVA) | payer MEDICARE, OTHER, SELFPAY | PROVIDERS: PCP Internal Medicine; Visit Provider Nurse Practitioner Family | DX: I47.29 Other ventricular tachycardia (principal); I48.91 Unspecified atrial fibrillation; Z98.890 Other specified postprocedural states; I45.19 Other right bundle-branch block; R94.31 Abnormal electrocardiogram [ECG] [EKG] | CPT/HCPCS: 93005; 99212 ==

== ENCOUNTER 2025-02-07 12:43 | Day surgery (SDC) | payer MEDICARE, MEDICAID, SELFPAY ==
--- OUTSIDE RECORDS SUMMARY | 2024-08-26 06:00 | XMS_ITS ---
Author Organization [facility] Address [address] [place] [address] Care Team Providers Care Senior Office Assistant Name Role Phone Cam acosta, Kermit Primary Care Prov ider Randolph Miguel Jr REASON FOR VISIT acute gastric ulcer w/ hemorrh Encounters Encounter Location Date Provider Diagnosis [facility] Out[place] [address] [place] [phone] 08/26/2024 Randolph Nogueira Jr Plan Of Treatment Next Appt Details Provider Name:Randolph wilkerson Jr, 03/27/2025 10:20:00 AM, [address], [address], [place], [address], Progress Notes * ТАТЬЯНА KIRKLAND LDOB:1944 (79 yo M)Acc No.[id number]:08/26/2024 EGD and COL/MAC Patient: ТАТЬЯНА NAPOLES Provider: Blanca Nogueira MD :1945 A ge:79 Y S ex:Male Date:08/26/2024 Address:[address] [place] [address] [address], [id number] Pcp:Kermit porter md Subjective: * Chief Complaints: [...] 08/26/2024 Generated for Kim villasenor/Princess/Rod on: 0 02/01/2025 10:01 AM EDT
--- OUTSIDE RECORDS SUMMARY | 2025-02-01 10:01 | XMS_ITS | Clinical Summary ---
Author Organization [employer] Address [address] [place] [address] Care Team Providers Care Barrel Line Operator Name Role Phone Kermit Rangel MD [...] 1 tablet by mouth 2 times daily. 5 Active dilTIAZem CD (Cardizem CD) 120 MG 24 hr capsule Take 1 capsule by mouth Once per day. 5 Active digoxin (Lanoxin) 250 MCG tab;et Take 1 tablet by mouth Once per day. 5 Active metoprolol tartrate (Lopressor) 100 MG tablet Take 100 mg by mouth 2 times daily. 5 Active omeprazole OTC (PriLOSEC OTC) 20 MG EC tablet Take 1 tablet (20 mg) by mouth before breakfast. Do not crush, chew, or split. 30 tablet 3 Active Ascorbic Acid (vitamin C) 500 MG tablet TAKE ONE TABLET EVERY DAY WITH ferrous sulfate 30 tablet 3 Active Ascorbic Acid (Vitamin C) 500 MG capsule Take 1 capsule orally with iron daily 30 capsule 3 5 01/12/20 25 Discontinued Active Problems Problem Noted Date Diagnosed Date [...] Encounters Date Type Department Care Team Description 01/16/2025 Telephone [facility] [address] [place] [address] Kermit Rangel MD 01/11/2025 Telephone [facility] MEDICINE [address] [place] [address] Kermit Rangel MD 01/10/2025 Refill [facility] [address] [place] [address] Aletha Waldrop MD 11/10/2024 8:30 AM EDT Office Visit [facility] [address] [place] [address] Kermit Rangel MD Persistent atrial fibrillation (CMS/HCC) (Primary Dx); Other hemorrhoids; Iron deficiency anemia due to chronic blood loss 11/10/2024 Travel 11/03/2024 Travel from Last 3 Months Family History Medical History Relation Name Comments No Known Problems Father No Known Problems Mother Cancer Neg Hx Relation Name Status Comments Father Mother Social History Tobacco Use Types Packs/Day Years Used Date Smoking Tobacco: Former Cigarettes 0.3 34 S tarted: 1959 Smokeless Tobacco: Never Tobacco Cessation:Counseling Given: Not [...] 61 11/10/2024 8:41 AM EDT Temperature 36.6 C (97.8 F) 11/10/2024 8:41 AM EDT Respiratory Rate 16 11/10/2024 8:41 AM EDT [...] 8:30 AM EDT Office Visit [facility] [address] [place] [address] Kermit Rangel MD [address] [place], [place] [phone] Health Maintenance Due Date Last Done Comments DTaP/Tdap/Td Vaccines (1 - Tdap) 1964 Pneumococcal Vaccine: 50+ Years (1 of 1 - PCV) 1994 Zoster Vaccines (1 of 2) 1994 RSV Patients and Patients Aged 60 years or older (1 - 1-dose 75+ series) 2019 COVID-19 Vaccine (4 - 2023-2 5 season) 2024 2021, 09/27/2020, 08/31/2020 Influenza Vaccine (#1) 2025 Depression Screening 07/08/2025 07/08/2024, 07/08/2024 SDOH Screening [...] patient's age to complete this topic Meningococcal B Vaccine Aged Out No l onger eligible based on patient's age to complete [...] Procedure Name Priority Date/Time Associated Diagnosis Comments IRON AND TOTAL IRON BINDING CAPACITY Routine 12/21/2024 7:10 AM EDT BASIC METABOLIC PANEL Routine 12/21/2024 7:10 AM EDT PROTHROMBIN TIME-INR Routine 12/21/2024 7:10 AM EDT CBC Routine 12/21/2024 7:10 AM EDT LIPID PANEL, STANDARD Routine 09/13/2024 7:22 AM EST from Last 3 Months or Most Recently Relevant to Health Maintenance Results * (ABNORMAL) Iron And Total Iron Binding Capacity (12/21/2024 7:10 AM EDT) Iron 219(H) 45 - 160 mcg/dL [facility] Total Iron Binding Capacity 348 228 - 428 mcg/dL [facility] Percent Iron Saturation 63(H) 15 - 50 % [facility] Unsaturated Iron Binding 129 ug/dL [facility] 12/21/2024 7:10 AM EDT 12/21/2024 7:10 AM EDT us Generic External Data Provider LAB BLOOD ORDERAB LES Final Result [facility] [address] [place] [address] [phone] * (ABNORMAL) Prothrombin Time-INR (12/21/2024 7:10 AM EDT) Prothrombin Time 14.5(H) 10.9 - 12.4 SEC [facility] INTERNATIONAL NORM RATIO 1.3(H) 0.9 - 1.1 [facility] Comment:INTERNATIONAL NORMAL IZED RATIO (INR) REFERENCE RANGES Reference RangeFor patients not on anticoagulant therapy: 0.9 - 1.1INR ranges for oral anticoagulanttherapy:For prevention and treatment of venous thrombosis and pulmonary embolism: 2.0 - 3.0For acute myocardial infarction with aspirin therapy: 2.0 - 3.0For acute myocardial infarction without aspirin therapy: 3.0 - 4.0For patients with mechanical prosthetic heart valves: 2.5 - 3.5 12/21/2024 7:10 AM EDT 12/21/2024 7:10 AM EDT us Generic External Data Provider LAB BLOOD ORDERAB LES Final Result [facility] [address] [place] [phone] * (ABNORMAL) CBC (12/21/2024 7:10 AM EDT) White Blood Count 6.2 4.8 - 10.8 X10*3/uL [facility] Red Blood Count 4.73 4.60 - 5.80 X10*6/uL [facility] Hemoglobin 15.0 14.0 - 18.0 g/dl [facility] Hematocrit 44.2 42.0 - 52.0 % [facility] Mean Corpuscular Volume 93.4 80.0 - 98.0 fL [facility] Mean Corpuscular Hemoglobin 31.7 27.0 - 33.0 pg [facility] Mean Corpuscular HGB Conc 33.9 31.0 - 36.0 g/dl [facility] Red Cell Distribution Width 14.4 11.0 - 16.0 % [facility] Platelet Count 152(L) 160 - 400 X10*3/uL [facility] Mean Platelet Volume 10.5 9.4 - 12.4 fL [facility] NRBC Pct Auto 0.0 0.0 - 0.2 /100WBC [facility] NRBC Abs Auto 0.000 0.0 - 0.012 X10*3/uL [facility] 12/21/2024 7:10 AM EDT 12/21/2024 7:10 AM EDT Generic External Data Provider LAB BLOOD ORDERAB LES Final Result Performing Organization Address [facility]/ZIP Co de Phone Number [facility] [address] [place] [phone] * (ABNORMAL) Basic Metabolic Panel (12/21/2024 7:10 AM EDT) Sodium 140 135 - 145 mmol/L [facility] Potassium 4.4 3.3 - 5.1 mmol/L [facility] Chloride 102 96 - 108 mmol/L [facility] Carbon Dioxide 31(H) 22 - 29 mmol/L [facility] Anion Gap 11(L) 12 - 20 [facility] Urea Nitrogen (BUN) 10 9 - 16 mg/dL [facility] Creatinine, Serum 0.85 0.5 - 1.4 mg/dL [facility] Estimated Glomerular Filt Rate >60 [facility] Comment:Chronic Kidney Disea se: Estimated GFR < 60 mL/min/1.95f9Ynnpdq Kidney Disease: Estimated GFR < 15 mL/min/1.73m2 Glucose 82 60 - 115 mg/dL [facility] Calcium 9.0 8.4 - 10.2 mg/dL [facility] 12/21/2024 7:10 AM EDT 12/21/2024 7:10 AM EDT us Generic External Data Provider LAB BLOOD ORDERAB LES Final Result Performing Organization Address [facility]/ZIP Co de Phone Number [facility] [address] [place] [phone] * Lipid Panel, Standard (09/13/2024 7:22 AM EST) Triglycerides 90 <150 mg/dL [facility] Comment:Desirable Triglyceri de: less than 150 mg/dLBorderline High Triglyceride 150-199 mg/dLHigh Triglyceride: 200-499 mg/dLVery High Triglyceride: greater than or equal to 5OO mg/dL Cholesterol 134 <200 mg/dL [facility] Comment:Desirable Cholestero l: less than 200 mg/dLBorderline High Cholesterol: 200-239 mg/dLHigh Cholesterol: greater than 239 mg/dL LDL Cholesterol Calculated 66 <100 mg/dL [facility] Comment:Desirable LDL: less than 100 mg/dLNear Optimal/Above Optimal LDL: 110- 129 mg/dLBorderline High LDL: 130-159 mg/dLHigh LDL: 160-189 mg/dLVery High LDL: greater than or equal to 190 mg/dL HDL Cholesterol 50 >40 mg/dL [facility] Comment:Desirable HDL: great er than 40 mg/dL Note: This HDL assay may give artificially low results in patients with liver disease. 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
--- OUTSIDE RECORDS SUMMARY | 2025-02-01 10:02 | XMS_ITS | Data Portability ---
Author Organization [place] [facility] Address [address] [facility] [address] [place] [address] Assessment Encounter Date Assessment Date Assessment LastModified [...] with plan. [email or web address] Not available 11/21/2024 14:07:10 12/14/2024 12/14/2024 Follow up with referring provider. [email or web address] Not available 12/14/2024 14:49:00 12/14/2024 12/14/2024 79yo male presents for evaluation of the ears. Left-sided cerumen impaction removed with suction. TMs and EACs are normal to inspection. 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 Patient is medically cleared for amplification. Provided [facility] health provider list. Recommend annual follow up with repeat audiometric testing, or sooner with any concerns. [email or web address] Not available 12/14/2024 16:39:41 Plan of Treatment Reminders Order Date Submit Date Provider Last Modified By Organization Details Last Modified Time Details Appointments None recorded. Lab None recorded. Referral None recorded. Procedures None recorded. Surgeries None recorded. Imaging None recorded. Medication Orders tobramycin 0.3 %-dexametha sone 0.1 % eye drops,suspe nsion 2024 025 [facility], [address], [place], [place], [phone], 11:19:13 Patient TargetsNo targets recorded. Patient InstructionsNo instructions recorded. Reason for Referral None Reported. Results Created Date Observation Date Name Description Value Unit Range Abnormal Flag Note LastModifiedBy Organization Detail LastModifiedTime 12/15/19 25 audio gram No observ ation record ed. BARCODE Not Available 2024 16:05:55 Result Notes None recorded. Problems Name Problem SNOMED Code Status Onset Date Resolution Date Notes Provider Name and Address Organization Details Recorded Time Otorrhea of right ear [id number] 106 Active 2024 KIMMIE MONTILLA PA-C [address] [facility],[place] [address], [place], [address], [facility] 14:01:03 Impacted cerumen of bilateral ears 6428015953678 108 Active 2024 KIMMIE MONTILLA PA-C [address] [facility] [address] [facility] [place], [place], [address], [facility] [place] 14:07:14 Sensorineur al hearing loss of bilateral ears 590455496 Active 2024 Alice RICKS [address] [facility], [address] [facility] [place], [place], [address], [facility] [place] 14:49:01 Impacted cerumen in left ear 0453900721920 101 Active 2024 KIMMIE MONTILLA PA-C [address] [facility] [address] [facility] [place], [place], [address], [facility] 15:01:54 Problem Notes None recorded. Procedures Surgical History Date Name Laterality Status Provider Name and Address Organization Details Recorded Time Comp Audio with Tymps - 37109 & 89417 completed Alice RICKS [address] [facility] [place],[address], [address], [place] - [facility] 12/14/2024 14:49:00 05/28/202 5 Cerumen removal without microscope left completed KIMMIE MONTILLA PA-C [address] [place],[address], [place], [address], [place] - [facility] 12/14/2024 15:00:58 5 Cerumen removal without microscope bilat completed KIMMIE MONTILLA PA-C [address], [place], [address], [facility] 11/21/2024 14:05:34 Imaging Results None recorded. Procedure Notes None recorded. Medical Equipment None Reported. Allergies No known drug allergies Medications Name Sig Start Date Stop Date Status Note LastModified by Organization Details LastModified Time tetracyclin e 500 mg capsule TAKE ONE CAPSULE FOUR TIMES DAILY FOR FOURTEEN DAYS 12/14 completed Not Available Not Available Not Available celecoxib 200 mg capsule TAKE ONE CAPSULE DAILY active Not Available Not Available No t Available Vitamin C 500 mg tablet TAKE ONE TABLET EVERY DAY WITH ferrous sulfate active Not Available Not Available No t Available metoprolol tartrate 100 mg tablet TAKE ONE TABLET EVERY TWELVE HOURS active Not Available Not Available No t Available hydrocodone 5 mg-acetamin ophen 325 mg tablet TAKE ONE TABLET BY MOUTH EVERY FOUR TO SIX HOURS NEEDED FOR PAIN 12/14 completed Not Available Not Available Not Available meloxicam 15 mg tablet TAKE ONE TABLET BY MOUTH EVERY DAY active Not Available Not Available No t Available thiamine HCl (vitamin B1) 100 mg tablet TAKE ONE TABLET EVERY DAY active Not Available Not Available No t Available metronidazo le 500 mg tablet TAKE ONE TABLET THREE TIMES DAILY FOR FOURTEEN DAYS 12/14 completed Not Available Not Available Not Available digoxin 250 mcg (0.25 mg) tablet TAKE ONE TABLET EVERY DAY active Not Available Not Available No t Available omeprazole 40 mg capsule,del ayed release TAKE ONE CAPSULE TWICE DAILY UNTIL 07/22/24, THEN DECREASE TO ONE CAPSULE DAILY active Not Available Not Available No t Available ketorolac 0.5 % eye drops PLACE ONE DROP IN THE AFFECTED EYE(S) THREE TIMES DAILY STARTING TWO DAYS prior TO SURGERY THEN continue DIRECTED active Not Available Not Available No t Available prednisolon e acetate 1 % eye drops,suspe nsion PLACE ONE DROP IN THE LEFT EYE [...] THE MORNING AND AT BEDTIME NEEDED FOR CONSTIPAT ION active Not Available Not Available No t Available bismuth subsalicyla te 262 mg chewable tablet CHEW TWO TABLETS FOUR TIMES DAILY FOR FOURTEEN DAYS active Not Available Not Available No t Available omeprazole 20 mg capsule,del ayed release TAKE ONE CAPSULE TWICE DAILY FOR FOURTEEN DAYS active Not Available Not Available No t Available diltiazem CD 120 mg capsule,ext ended release 24 hr TAKE ONE CAPSULE DAILY active Not Available Not Available No t Available folic acid 1 mg tablet TAKE ONE TABLET EVERY DAY active Not Available Not Available No t Available bisacodyl 5 mg tablet,ernesto yed release TAKE TWO TABLETS AT 3pm AND 7pm FOR ONE DAY active Not Available Not Available No t Available digoxin 125 mcg (0.125 mg) tablet TAKE ONE TABLET EVERY DAY active Not Available Not Available No t Available metoprolol succinate ER 25 mg tablet,exte nded release 24 hr TAKE ONE TABLET EVERY DAY active Not Available Not Available No t Available polyethylen e glycol 3350 17 gram/dose oral powder MIX WITH gatorade or crystal light and begin drinking at 5pm the day before procedure active Not Available Not Available No t Available tobramycin 0.3 %-dexametha sone 0.1 % eye drops,suspe nsion INSTILL 4 DROPS INTO RIGHT EAR TWICE DAILY FOR 7 DAYS active Not Available Not Available No t Available Eliquis 5 mg tablet TAKE ONE TABLET TWICE DAILY active Not Available Not Available No t Available Vitals Date Recorded Body height Body mass index (BMI) Body weight Provider Name and Address Organization Details Last Updated DateTime 11/21/2024 180.34 cm 25.8 kg/m2 34205.59 g Veronica Marshall [place] [facility] 11/21/2024 13:11:35 Date Recorded Body height Body mass index (BMI) Body weight Provider Name and Address Organization Details Last Updated DateTime 12/14/2024 180.34 cm 25.8 kg/m2 55234.59 g Veronica Marshall [place] [facility] 12/14/2024 14:10:49 Social History None recorded. Functional Status None recorded. Mental Status None recorded. Family History Nothing Reported. Medical History Condition Response Allergies/Hayfever N Heart Problems N Anxiety N Tonsil Infections N Emphysema N Migraines N Thyroid Problems N Glaucoma N Depression N COPD N Developmental Delay N Nasal or Sinus Problems N Anemia N Immune System Disorder N Anesthesia Complications N Heart Attack (TN) Y Other Skin Condition N Diabetes N Rhinitis N Bleeding Disorder N Food Allergy N Arthritis N Hearing Loss N Hyperlipidemia N Cancer N Stroke N Dementia N Nasal polyps N Asthma N Sleep Disorder N GERD/Reflux N High Cholesterol N Liver Disease N Headaches N Fibromyalgia N Hypertension N Speech Delay N Kidney Disease N Past Encounters Encounter ID Performer Location Encounter Start Date Encounter Closed Date Diagnosis/Indication Diagnosis SNOMED-CT Code Diagnosis ICD10 Code Diagnosis Note [id number] KIMMIE MONTILLA PA-C [facility] [address] [address] 11/21/2024 12:44:15 11/21/2024 14:48:35 Otorrhea of right ear [id number] 447857 H92.11 Impacted c erumen of bilateral ears 7713685192 007033 H61.23 [id number] KIMMIE MONTILLA PA-C [facility] [address] [address] 12/14/2024 14:06:01 12/14/2024 15:39:35 Impacted cerumen in left ear 5897469725 456444 H61.22 Sensorineu ral hearing loss of bilateral ears 756368974 H90.3 [id number] Alice RICKS [facility] [address] [address] 12/14/2024 14:48:35 12/16/2024 03:56:39 Sensorineural hearing loss of bilateral ears 606417620 H90.3 Audiologic al evaluation results:Ri ght ear:Mild sloping to severe mixed HL with poor word recognitio n.Left ear:Mild to severe SNHL with excellent word recognitio n. Tympanomet ry:Right Ear:Type CLeft Ear:Type A Health Concerns Section Related Observation LastModified by Organization Detai ls LastModified Time None Recorded Concern Status LastModified by Organization Details LastModified Time None Recorded Advance Directives Directive None Recorded Payers Insurance Date Sequence Insurance Name Policy Number Policy Sosa Covered Member ID Sosa Member ID Guarantor Name 11/02/2024 2 [employer] Geovanni Nick [id number] Geovanni Nick 12/14/2024 2 [place] Geovanni Nick [id number] Geovanni Nick 12/14/2024 1 [place] [facility] Geovanni Nick [id number] Geovanni Nick 11/02/2024 2 [place] Geovanni Nick [id number] Geovanni Nick Notes Date Note Type Note Provider Name and Address Organization Details Recorded Time 11/21/2024 text/html 79yo male presen ts for evaluation of hearing loss. This has been gradual for many years, worse in the right ear. Denies ear pain, drainage, or dizziness. Denies prior ear infections or ear surgeries. Excessive Qtip use. KIMMIE MONTILLA PA-C [address] [facility],[address], [address], [place] - [facility] 11/21/2024 14:07:37 12/14/2024 text/html 79yo male presen ts for reevaluation of the ears. He reports right sided hearing returned to baseline. Left ear with mild muffled hearing. Denies ear pain, drainage, or new hearing changes. No recent audiometric testing. He has never worn hearing aids. SWATI SHEIKH MD [address] [facility],[address], [address], [facility] 12/14/2024 16:46:47 12/14/2024 text/html Audiological Evaluation HPIReported bypatient.Hearing loss perceived:none (no loss of audibility) Alice RICKS [address] [facility],[place] [address], [place], [address], [place] - [facility] 12/14/2024 15:09:59
--- NOTE | 2025-02-06 14:35 | P.CONAN_ITS ---
HPI - Anesthesia Eval Consult details Narrative: 79 yr old male for cardioversion. [facility] Active Problems Active Problems: All Active Problems S/P cardiac cath (Acute) Dyspnea on exertion (Acute) Preop cardiovascular exam (Acute) Abnormal stress test (Acute) Hospital discharge follow-up (Acute) Atrial fibrillation (Acute) Hemorrhoids (Acute) Past Medical History Medical History Bilateral cataracts Hemorrhoids Daily consumption of alcohol Arthritis Iron deficiency anemia Gastric ulcer Atrial fibrillation with RVR Orthostasis NSVT (nonsustained ventricular tachycardia) Upper gastrointestinal bleed Family History Family history of problems with anesthesia: No Surgical History Surgical History H/O hemorrhoidectomy (11/04/24) Hx of hernia repair History of esophagogastroduodenoscopy (EGD) History of Problems with Anesthesia: No Social History Social History Household Members: None Housing: Apartment Do you presently have visiting nurse or other home services: No Alcohol intake: current Alcohol intake frequency: 0-2 drinks per day Alcohol type: beer Patient Tobacco Use Status: Former Tobacco user service: No Meds Allergies Allergy/AdvReac Type Severity Reaction Status Date / Time No Known Allergies Allergy Verified 03/02/25 08:40 Exam Narrative Narrative: EKG 02/02/25 afib, rate 80s Cardiac cath 12/2024: No significant CAD Assessment and Plan Final Anesthetic Review Family History of Problems with Anesthesia: No History of Problems with Anesthesia: No
--- NOTE | 2025-02-07 | ECG_ITS ---
Test Reason : POST CARDIOVERSION Blood Pressure : */* mmHG Vent. Rate : 75 BPM Atrial Rate : 75 BPM P-R Int : 140 ms QRS Dur : 104 ms QT Int : 370 ms P-R-T Axes : 50 -37 -2 degrees QTcB Int : 413 ms Sinus rhythm with Premature atrial complexes with Aberrant conduction Left axis deviation Incomplete right bundle branch block Abnormal ECG When compared with ECG of 08-Nov-2024 08:47, Sinus rhythm has replaced Atrial fibrillation Referred By: Harry Beckwith Electronically Signed By: Harry Beckwith
--- NOTE | 2025-02-07 13:15 | MHC.SHP ---
Pre-Procedural Eval Section A - 24 Hr Update-Section A only Date of Service: 02/07/25 The patient is an INPATIENT: No Section B - Complete if H&P > 30 days Chief Complaint: Unspecified atrial fibrillation Details of Present Illness: PAUL, Afib. Allergies: Allergies Allergy/AdvReac Type Severity Reaction Status Date / Time No Known Allergies Allergy Verified 02/02/25 08:18 Plan Diagnosis/Plan: Unchanged I have reviewed the history and physical and performed a pertinent physical examination on my patient. No changes have occurred unless specified. Time Spent With Patient Time: Total time managing care of this patient today ____ minutes.
[2025-02-07 13:18] VITALS: BMI 27.1
[2025-02-07 13:33] VITALS: BP 104/77; PULSE 118; RESP 26; TEMP 36.8
[2025-02-07] MEDS: Lactated Ringers 1,000 ML 50 ML IVCONT (13:42)
--- NOTE | 2025-02-07 13:46 | P.CONAN_ITS ---
[facility] Active Problems Active Problems: All Active Problems S/P cardiac cath (Acute) Dyspnea on exertion (Acute) Preop cardiovascular exam (Acute) Abnormal stress test (Acute) Hospital discharge follow-up (Acute) Atrial fibrillation (Acute) Hemorrhoids (Acute) Past Medical History Medical History Bilateral cataracts Hemorrhoids Daily consumption of alcohol Arthritis Iron deficiency anemia Gastric ulcer Atrial fibrillation with RVR Orthostasis NSVT (nonsustained ventricular tachycardia) Upper gastrointestinal bleed Functional capacity: independent ambulation Family History Family history of problems with anesthesia: No Surgical History Surgical History H/O hemorrhoidectomy (11/04/24) Hx of hernia repair History of esophagogastroduodenoscopy (EGD) History of Problems with Anesthesia: No Social History Social History Household Members: None Housing: Apartment Do you presently have visiting nurse or other home services: No Alcohol intake: current Alcohol intake frequency: 0-2 drinks per day Alcohol type: beer Patient Tobacco Use Status: Former Tobacco user Use of substances other than those prescribed or required for medical reasons: No Are you DNR?: No Advance Directives: No Advance Directives Information Provided: Yes Poor oral hygiene: No service: No Meds Allergies Allergy/AdvReac Type Severity Reaction Status Date / Time No Known Allergies Allergy Verified 02/02/25 08:18 Active Medications: Current Medications Lactated Ringer's (Lr) 1,000 mls @ 50 mls/hr IVCONT .Q20H GISELA Last Admin: 02/07/25 13:42 Dose: 50 mls/hr Home Medications ?Medication ?Instructions ?Recorded ?Confirmed ?Last Taken ?Type acetaminophen 325 mg tablet 650 mg PO Q6H PRN knee evangelist n 07/20/24 02/02/25 11/03/24 History Exam Height,Weight and Vital Signs: Height 5 ft 11 in Weight 88.3 kg Last Vital Signs Temp 98.2 F 02/07/25 13:33 Pulse 118 H 02/07/25 13:33 Resp 26 H 02/07/25 13:33 BP 104/77 02/07/25 13:33 Airway Mallampati Class: II TM Dist: >3cm Neck ROM: Full Heart: irreg Lungs: CTA Assessment and Plan Final Anesthetic Review Family History of Problems with Anesthesia: No History of Problems with Anesthesia: No NPO: Yes ASA Class: III Final Preanesthetic Review: Meds/Allgs Chart Reviewed, Consent Obtained/Reviewed and Anes Risks/Benef Reviewed Patient Risk: Intermediate Procedure Risk: Intermediate Anesthetic Plan Anesthetic Plan: GA Disposition: Standard PACU
[2025-02-07 14:50] VITALS: BP 110/74; PULSE 88; RESP 16; TEMP 36.1; O2SAT 94
--- NOTE | 2025-02-07 14:54 | HO.POSTANES ---
Post Anesthesia Evaluation Post Anesthesia Evaluation Date of Service: 02/07/25 Vital Signs: Vital Signs Temp Pulse Resp BP 02/07/25 13:33 98.2 F 118 H 26 H 104/77 Anesthesia: General Mental Status: Awake Pain Control: Satisfactory Nausea/Vomiting: None Hydration: Adequate Anesthesia-Related Issues: No Anes. Related Issues
[2025-02-07 14:55] VITALS: BP 108/61; PULSE 76; RESP 16; O2SAT 96
[2025-02-07 15:00] VITALS: BP 116/71; PULSE 81; RESP 16; O2SAT 97
[2025-02-07 15:05] VITALS: BP 110/74; PULSE 85; RESP 16; O2SAT 97
[2025-02-07 15:20] VITALS: BP 113/71; PULSE 82; RESP 16; TEMP 36.1; O2SAT 98
--- NOTE | 2025-03-06 16:32 | HO.CARDIVERS ---
Cardioversion Procedure Note Cardioversion Date of Procedure: 02/07/25 Ordering Provider: Harry Beckwith Performing Provider: Harry Beckwith Indication for Procedure: Afib, PAUL Performed with Transesophageal Echo: No Consent: Verbal and Written consent was obtained from the patient before starting. The patient was made aware of the risk of stroke, arrhythmia, failure and skin steele. Procedure: After consent obtained, defib pads were attached and the patient was sedated by the anesthesia team. Once adequate sedation achieved, single synchronized shock of 200 joules was given which converted the rhythm to sinus. Complications: No acute complications. Recommendations: Start amiodarone. Continue apixaban 5 mg twice a day uninterrupted.
== END 2025-02-07 15:57 | disposition home or self-care (01) ==
PROVIDERS: PCP Internal Medicine; Visit Provider Internal Medicine Cardiovascular Disease
PROC: 5A2204Z Restoration of Cardiac Rhythm, Single (ICD-10-PCS; principal; 2025-02-07 14:30)
DX: I48.91 Unspecified atrial fibrillation (principal); I47.29 Other ventricular tachycardia; R06.02 Shortness of breath; Z79.01 Long term (current) use of anticoagulants; Z87.891 Personal history of nicotine dependence; Z98.890 Other specified postprocedural states
CPT/HCPCS: 92960; 93005; J2704

== ENCOUNTER → 2025-02-07 12:43 | Outpatient (BNV) | payer MEDICARE, MEDICAID, SELFPAY | PROVIDERS: PCP Internal Medicine; Visit Provider Internal Medicine Cardiovascular Disease | DX: I48.91 Unspecified atrial fibrillation (principal) | CPT/HCPCS: 92960 ==

== ENCOUNTER → 2025-02-07 14:53 | Outpatient (BNV) | payer MEDICARE, MEDICAID, SELFPAY | PROVIDERS: PCP Internal Medicine; Visit Provider Internal Medicine Cardiovascular Disease | DX: I48.91 Unspecified atrial fibrillation (principal); I45.10 Unspecified right bundle-branch block; I45.4 Nonspecific intraventricular block | CPT/HCPCS: 93010 ==

== ENCOUNTER 2025-03-02 08:28 | Outpatient (AMB) | payer MEDICARE, MEDICAID, SELFPAY ==
--- OUTSIDE RECORDS SUMMARY | 2024-08-26 06:00 | XMS_ITS ---
Author Organization [facility] Address [address] [place] [address] Care Team Providers Care Gas Pumping Station Supervisor Name Role Phone Cam acosta, Kermit Primary Care Prov ider Randolph Miguel Jr REASON FOR VISIT acute gastric ulcer w/ hemorrh Encounters Encounter Location Date Provider Diagnosis [facility] Out[facility] [address] [place] [id number] 08/26/2024 Randolph Nogueira Jr Plan Of Treatment Next Appt Details Provider Name:Randolph wilkerson Jr, 03/27/2025 10:20:00 AM, [address], [address], [place], [address], Progress Notes * ТАТЬЯНА KIRKLAND LDOB:1944 (79 yo M)Acc No.[id number]:08/26/2024 EGD and COL/MAC Patient: ТАТЬЯНА NAPOLES Provider: Blanca Nogueira MD :1945 A ge:79 Y S ex:Male Date:08/26/2024 Address:[address] [place] [address] [address], [id number] Pcp:Kermit porter md Subjective: * Chief Complaints: [...] MD Date: 0 08/26/2024 Generated for Kim villasenor/Princess/Rod on: 0 03/02/2025 08:49 AM EDT
[2025-03-02 08:38] VITALS: BP 100/62; PULSE 47; BMI 27.5
--- NOTE | 2025-03-02 08:38 | MHC.OFFVIS ---
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 orally; apixaban (Eliquis) 5 mg PO BID compr.stocking,knee,long,small (T.E.D. Knee Gawyhr-B-Nj[facility]) As directed metoprolol tartrate 100 mg See Protocol PO Q12H HPI HPI 3ck f/up-s/p cardioversion: Details: Geovanni is an 79-year-old male with past medical history of daily alcohol use, knee arthritis, GI bleed Dec with endoscopy showing gastric ulcer. He was put on PPI and transfused. During that admission he was noted to have NSVT runs and was seen by Cardiology. He was started on metoprolol. An echocardiogram showed normal EF and basal inferior hypokinesis. He was readmitted a month later with weakness and rectal bleeding. He was found to have hemorrhoids and has since undergone hemorrhoidectomy. He has been found to have new onset persistent atrial fibrillation and was treated with heart rate control. He was started on Eliquis for anticoagulation and his H&H remained stable. He reported shortness of breath and underwent cardiac catheterization showing no significant coronary artery disease. He then had cardioversion on 02/07/2025 and now presents for follow-up. Today he reports that he feels no different following the cardioversion procedure. He continues to have some shortness of breath with exertional activities. He has no shortness of breath at rest, PND, orthopnea or edema. No heart palpitations, lightheadedness, presyncope, syncope. He denies chest discomfort at rest or with activity. He has been doing light physical activity. No bleeding issues reported. Taking all meds as directed. [facility] Medical History Bilateral cataracts Hemorrhoids Daily consumption of alcohol Arthritis Iron deficiency anemia Gastric ulcer Atrial fibrillation with RVR Orthostasis NSVT (nonsustained ventricular tachycardia) Upper gastrointestinal bleed Surgical History H/O hemorrhoidectomy (11/04/24) Hx of hernia repair History of esophagogastroduodenoscopy (EGD) Social History Household Members: None Housing: Apartment Do you presently have visiting nurse or other home services: No Alcohol intake: current Alcohol intake frequency: 0-2 drinks per day Alcohol type: beer Patient Tobacco Use Status: Former Tobacco user service: No Review of Systems Const All systems reviewed & are unremarkable except as noted in HPI and below ENT Denies dizziness Card Denies chest pain, Denies chest pain at rest, Denies chest pain with activity, Denies rapid heart rate, Denies pedal edema, Denies edema, Denies leg edema, Denies lightheadedness, Denies palpitations, Denies dyspnea, Reports dyspnea on exertion and Denies orthopnea Resp Denies cough, Denies dyspnea and Reports dyspnea on exertion GI Denies hematochezia and Denies change in stool character Musc Denies abnormal gait, Denies limited range of motion, Denies muscle cramps, Denies muscle weakness, Denies numbness, Denies radiating pain into limb, Denies stiffness and Denies tingling Neuro Denies abnormal gait, Denies dizziness, Denies numbness and Denies tingling Endo Denies palpitations Physical Exam Vital Signs: BMI result Body Mass Index 27.5 Const General: cooperative, healthy appearing, comfortable and no acute distress Orientation/consciousness: patient oriented x3 Neck Neck: Yes normal visual inspection Resp Effort & Inspection: normal respiratory effort Auscultation: clear to auscultation bilaterally, no rales, no rhonchi and no wheezes Cardio Jugular venous distension: no JVD Rate: bradycardic Rhythm: regular rhythm Heart sounds: S1 normal heart sound present, S2 normal heart sound present, no gallops, no murmurs and no rubs Neuro General: patient oriented x3 Extrem General: Yes normal to inspection, No no pedal edema and No calf tenderness Psych Appearance: grossly normal Mental Status: mental status grossly normal Speech and movement: Normal speech and movement present Office Procedures EKG Details: Today, read by me, sinus bradycardia, with one PVC, rate 47, Qtc 428ms [id number], Complete Assessment & Plan Assessment & Plan (1) Atrial fibrillation: Code(s): I48.91 - Unspecified atrial fibrillation Category: Medical Plan: New finding of atrial fibrillation when he presented to [facility] 07/20/2024 with weakness and rectal bleeding. He was treated for heart rate control and started on Eliquis for anticoagulation. Chads Vasc score of 2. He has been monitored without any signs of recurrent GI bleeding. Last Echocardiogram 06/20/2024 showed EF 55-60%, basal inferior hypokinetic, mild pulmonary hypertension, left atrium severely dilated, right atrium likely dilated. A Holter monitor done 08/10/2024 for 3 days shows AFib, rate 69, pauses noted ranging 2.5-4 seconds. Nuclear stress test 08/10/2024 shows infarcted basal inferior wall without clear evidence of ischemia. He did have cardiac catheterization on 01/12/2025 showing lad minimal irregularities. For his symptom of shortness of breath with exertion he underwent cardioversion on 02/07/2025. EKG today showing sinus bradycardia with PAC and 1 PVC, rate 47, asymptomatic. Breathing has not improved post cardioversion. Will reduce metoprolol down to 50 mg b.i.d.. Continue amiodarone for rhythm control. Continue Eliquis. Will check liver panel and TSH. Will check Holter monitor in 2 weeks. Cardiology follow-up 3 mo sooner if needed. (2) S/P cardiac cath: Comment: 01/12/2025 lad minimal irregularities Code(s): Z98.890 - Other specified postprocedural states Category: Surgical (3) NSVT (nonsustained ventricular tachycardia): Comment: noted during admission for upper GI bleed Code(s): I47.29 - Other ventricular tachycardia Category: Medical Plan: During June admission he was noted to have NSVT episode on tele monitoring. He was started on metoprolol. An echocardiogram showed normal EF. He has been feeling well with no concerning symptoms. Catheterization is showing no significant coronary artery disease. (4) Sinus bradycardia: Code(s): R00.1 - Bradycardia, unspecified Category: Medical Plan: Sinus criss noted on EKG today, asymptomatic. Will be reducing his Metoprolol and checking holter. Plan I discussed with the patient the current management of his atrial fibrillation, including the reduction of metoprolol dosage to address bradycardia. We agreed on the need for a heart monitor to evaluate his heart rate and rhythm in two weeks. I explained the importance of continuing amiodarone and Eliquis and the necessity of blood tests to monitor liver and thyroid function. A follow-up appointment was scheduled in three months to evaluate the effectiveness of the treatment plan. Orders: Orders ECG 3 day holter monitor 2 Weeks I48.91 - Unspecified atrial fibrillation TSH reflex Free T4 Today I48.91 - Unspecified atrial fibrillation Liver Panel Today I48.91 - Unspecified atrial fibrillation Medications: New metoprolol tartrate dose reduced - does not need refill at this time 50 mg PO BID 180 tabs 1RF Discontinued metoprolol tartrate Discontinued Reason: Doctor's Order 100 mg See Protocol PO Q12H 180 tabs 1RF Patient Instructions: - Reduce metoprolol to 50 mg twice daily. - Continue taking amiodarone and Eliquis as prescribed. - Attend heart monitor appointment in two weeks and complete blood tests. - Follow up in three months for reassessment. Patient was informed and verbally consented to the use of an ambient scribe for clinic note documentation during this visit. Visit time spent on chart review, interview, assessment, orders, documentation. Coding Level of Care Code Est Pt Level 4 (91324) Complex EM visit Add On G2211 Diagnoses Atrial fibrillation I48.91 S/P cardiac cath Z98.890 NSVT (nonsustained ventricular tachycardia) I47.29 Sinus bradycardia R00.1 CPT Codes EKG - CPT: 93276-[id number], Complete ([id number]) Time Spent (min) 28
--- OUTSIDE RECORDS SUMMARY | 2025-03-02 08:49 | XMS_ITS | Clinical Summary ---
Author Organization [employer] Address [address] [place] [address] Care Team Providers Care Guitar Maker Name Role Phone Kermit Rangel MD Primary Care Prov ider Allergies No known active allergies Medications Eliquis 5 MG tablet Take 1 tablet by mouth 2 times daily. 5 Active metoprolol tartrate (Lopressor) 100 MG tablet Take 100 mg by mouth 2 times daily. 5 Active folic acid (Folvite) 1 MG tablet Take 1 mg by mouth Once per day. 02/21/20 25 Discontinued thiamine (Vitamin B-1) 100 MG tablet Take 100 mg by mouth Once per day. 02/21/20 25 Discontinued Ascorbic Acid (vitamin C) 1000 MG tablet Take 1,000 mg by mouth Once per day. 02/21/20 25 Discontinued ferrous sulfate 325 (65 Fe) MG EC tablet Take 325 mg by mouth with breakfast. Do not crush, chew, or split. 02/21/20 25 Discontinued metoprolol succinate XL (Toprol-XL) 25 MG 24 hr tablet Take 25 mg by mouth Once per day. Do not crush or chew. 02/21/20 25 Discontinued dilTIAZem CD (Cardizem CD) 120 MG 24 hr capsule Take 1 capsule by mouth Once per day. 5 02/21/20 25 Discontinued digoxin (Lanoxin) 250 MCG tab;et Take 1 tablet by mouth Once per day. 5 02/21/20 25 Discontinued omeprazole OTC (PriLOSEC OTC) 20 MG EC tablet Take 1 tablet (20 mg) by mouth before breakfast. Do not crush, chew, or split. 30 tablet 3 5 02/21/20 25 Discontinued Ascorbic Acid (vitamin C) 500 MG tablet TAKE ONE TABLET EVERY DAY WITH ferrous sulfate 30 tablet 3 5 02/21/20 25 Discontinued Active Problems Problem Noted Date Diagnosed Date Iron deficiency anemia due to chronic blood loss 11/10/2024 Assessment & Plan (02/20/2025 10:08 AM EDT): Iron levels are elevated, hgb is stable, told to stop oral iron replacement, no further episode of bleeding reported Assessment & Plan (11/10/2024 9:21 AM EDT): Hemoglobin levels stable as per 08/2024 blood work, continue oral iron replacement, follow up on next visit Persistent atrial fibrillation 08/12/2024 Assessment & Plan (02/20/2025 10:06 AM EDT): Patient underwent cardioversion, followed by cardiology, on eliquis and metoprolol, no changes will be made Assessment & Plan (11/10/2024 9:18 AM EDT): [...] Encounters Date Type Department Care Team Description 02/20/2025 8:30 AM EDT Office Visit [facility] [address] [place] [address] Kermit Rangel MD Persistent atrial fibrillation (CMS/HCC) (Primary Dx); Iron deficiency anemia due to chronic blood loss 02/20/2025 Travel 02/17/2025 Telephone [facility] [address] [place] [address] Kermit Rangel MD chart prep 02/15/2025 Travel 01/16/2025 Telephone [facility] [address] [place] [address] Kermit Rangel MD 01/11/2025 Telephone [facility] [address] [place] [address] Kermit Rangel MD 01/10/2025 Refill [facility] [address] [place], [place] [phone] Aletha Waldrop MD from Last 3 Months Family History Medical [...] Sign Reading Time Taken Comments Blood Pressure 108/70 02/20/2025 8:56 AM EDT Pulse 68 02/20/2025 8:56 AM EDT Temperature 36.9 C (98.4 F) 02/20/2025 8:56 AM EDT Respiratory Rate 16 02/20/2025 8:56 AM EDT Oxygen Saturation 96% 11/10/2024 8:41 AM EDT Inhaled Oxygen Concentration - - Weight 87.5 kg (193 lb) 02/20/2025 8:56 AM EDT Height 177.8 cm (5' 10 ) 02/20/2025 8:56 AM EDT Body Mass Index 27.69 02/20/2025 8:56 AM EDT Plan of Treatment Health Maintenance Due Date Last Done Comments [...] EDT) Iron 219(H) 45 - 160 mcg/dL [facility] Total Iron Binding Capacity 348 228 - 428 mcg/dL [facility] Percent Iron Saturation 63(H) 15 - 50 % [facility] Unsaturated Iron Binding 129 ug/dL [facility] 12/21/2024 7:10 AM EDT 12/21/2024 7:10 AM EDT us Generic External Data Provider LAB BLOOD ORDERAB LES Final Result [facility] [address] [place] [phone] * (ABNORMAL) Prothrombin Time-INR (12/21/2024 7:10 AM EDT) [facility] Prothrombin Time 14.5(H) 10.9 - 12.4 SEC [facility] INTERNATIONAL NORM RATIO 1.3(H) 0.9 - 1.1 [facility] Comment:INTERNATIONAL NORMAL IZED RATIO (INR) [...] Provider LAB BLOOD ORDERAB LES Final Result [facility] [address] [place] [phone] * (ABNORMAL) CBC (12/21/2024 7:10 AM EDT) [facility] White Blood Count 6.2 4.8 - 10.8 X10*3/uL [facility] Red Blood Count 4.73 4.60 - 5.80 X10*6/uL [facility] Hemoglobin 15.0 14.0 - 18.0 g/dl [facility] Hematocrit 44.2 42.0 - 52.0 % [facility] Mean Corpuscular Volume 93.4 80.0 - 98.0 fL [facility] Mean Corpuscular Hemoglobin 31.7 27.0 - 33.0 pg [facility] Mean Corpuscular HGB Conc 33.9 31.0 - 36.0 g/dl [facility] Red Cell Distribution Width 14.4 11.0 - 16.0 % [facility] Platelet Count 152(L) 160 - 400 X10*3/uL [facility] Mean Platelet Volume 10.5 9.4 - 12.4 fL [facility] NRBC Pct Auto 0.0 0.0 - 0.2 /100WBC [facility] NRBC Abs Auto 0.000 0.0 - 0.012 X10*3/uL [facility] 12/21/2024 7:10 AM EDT 12/21/2024 7:10 AM EDT us Generic External Data Provider LAB BLOOD ORDERAB LES Final Result Performing Organization Address [facility] Co de Phone Number [facility] [address] [place] [phone] * (ABNORMAL) Basic Metabolic Panel (12/21/2024 7:10 AM EDT) Sodium 140 135 - 145 mmol/L [facility] Potassium 4.4 3.3 - 5.1 mmol/L [facility] Chloride 102 96 - 108 mmol/L [facility] Carbon Dioxide 31(H) 22 - 29 mmol/L [facility] Anion Gap 11(L) 12 - 20 [facility] Urea Nitrogen (BUN) 10 9 - 16 mg/dL [facility] Creatinine, Serum 0.85 0.5 - 1.4 mg/dL [facility] Estimated Glomerular Filt Rate >60 [facility] Comment:Chronic Kidney Disea se: Estimated GFR < 60 mL/min/[id number] Kidney Disease: Estimated GFR < 15 mL/min/1.73m2 Glucose 82 60 - 115 mg/dL [facility] Calcium 9.0 8.4 - 10.2 mg/dL [facility] 12/21/2024 7:10 AM EDT 12/21/2024 7:10 AM EDT us Generic External Data Provider LAB BLOOD ORDERAB LES Final Result Performing Organization Address [facility]/ZIP Co de Phone Number [facility] [address] [place] [phone] * Lipid Panel, Standard (09/13/2024 7:22 AM EST) Triglycerides 90 <150 mg/dL [facility] Comment:Desirable Triglyceri de: less than 150 mg/dLBorderline High Triglyceride 150-199 mg/dLHigh Triglyceride: 200-499 mg/dLVery High Triglyceride: greater than or equal to 5OO mg/dL Cholesterol 134 <200 mg/dL [facility] Comment:Desirable Cholestero l: less than 200 mg/dLBorderline High Cholesterol: 200-239 mg/dLHigh Cholesterol: greater than 239 mg/dL LDL Cholesterol Calculated 66 <100 mg/dL [facility] Comment:Desirable LDL: less than 100 mg/dLNear Optimal/Above Optimal LDL: 110- 129 mg/dLBorderline High LDL: 130-159 mg/dLHigh LDL: 160-189 mg/dLVery High LDL: greater than or equal to 190 mg/dL HDL Cholesterol 50 >40 mg/dL [facility] Comment:Desirable HDL: great er than 40 mg/dL Note: This HDL assay may give artificially low results in patients with liver disease. 09/13/2024 7:22 AM EST 09/13/2024 7:22 AM EST us Generic External Data Provider LAB BLOOD ORDERAB LES Final Result [facility] [address] [place] [phone] from Last 3 Months or Most Recently Relevant to Health Maintenance Insurance [place] [phone] Advance Directives Documents on File Type Date Recorded Patient Enterprise Systems Manager Expl anation Advance Directives and Livin g Will 01/09/2025 3:59 PM HCP Care Teams Guitar Maker Relationship Specialty Start Date End Date Kermit Rangel MD [address] [place] [phone] PCP - General Internal Medicine 07/11/24 Glenn TOTH 07/28/24
== END 2025-03-02 09:02 | disposition home or self-care (01) ==
LOC: HO.HCS 08:34
PROVIDERS: PCP Internal Medicine; Visit Provider Nurse Practitioner Family
DX: I48.91 Unspecified atrial fibrillation (principal); Z98.890 Other specified postprocedural states; I47.29 Other ventricular tachycardia; R00.1 Bradycardia, unspecified
CPT/HCPCS: 93010; 99214; G2211

== ENCOUNTER → 2025-03-02 08:28 | Outpatient (BNVA) | payer MEDICARE, OTHER, SELFPAY | PROVIDERS: PCP Internal Medicine; Visit Provider Nurse Practitioner Family | DX: I47.29 Other ventricular tachycardia (principal); I48.91 Unspecified atrial fibrillation; R00.1 Bradycardia, unspecified; Z98.890 Other specified postprocedural states; R94.31 Abnormal electrocardiogram [ECG] [EKG] | CPT/HCPCS: 93005; 99212 ==

== ENCOUNTER → 2025-03-14 08:02 | Outpatient (REF) | payer MEDICARE, MEDICAID, SELFPAY ==
--- OUTSIDE RECORDS SUMMARY | 2025-03-14 08:07 | XMS_ITS | Encounter Summary ---
Author Organization [employer] Address [address] [facility] [address] [facility] [address] [place] [address] Care Team Providers Care Sheep Herder Name Role Phone Kermit Rangel MD Primary Care Prov ider Reason for Visit * Reason Onset Date Comments Appointment Request 07/29/2024 Encounter Details Date Type Department Care Team (Late st Contact Info) Description 07/29/2024 Telephone [facility] [address] [place] [address] Kermit Rangel MD [address] [place] [address] Appointment Request Social History Tobacco Use Types [...] for that day if theres any availability. [phone] documented in this encounter Plan of Treatment Not on file documented as of this encounter Visit Diagnoses Not on filedocumented in this encounter Additional Health Concerns Assessment Noted Time PHQ-9 Depression Total Score: 0 07/08/20 9:15 AM EST documented as of this encounter Care Teams Sheep Herder Relationship Specialty Start Date End Date Kermit Rangel MD [address] [place] [phone] PCP - General Internal Medicine 07/11/24 Glenn TOTH 07/28/24 documented as of this encounter
--- OUTSIDE RECORDS SUMMARY | 2025-03-14 08:07 | XMS_ITS | Encounter Summary ---
Author Organization [employer] Address [address] [facility] [address] [place] [address] Care Team Providers Care Music Adapter Name Role Phone Kermit Rangel MD Primary Care Prov ider Encounter Details Date Type Department Care Team (Late st Contact Info) Description 07/11/2024 Telephone [facility] [address] [place] [address] Kermit Rangel MD [address] [place] [address] Social History Tobacco Use Types Packs/Day Years [...] as of this encounter Plan of Treatment Not on file documented as of this encounter Visit Diagnoses Not on filedocumented in this encounter Additional Health Concerns Assessment Noted Time PHQ-9 Depression Total Score: 0 07/08/20 9:15 AM EST documented as of this encounter Care Teams Music Adapter Relationship Specialty Start Date End Date Kermit Rangel MD [address] [place] [phone] PCP - General Internal Medicine 07/11/24 Glenn TOTH 07/28/24 documented as of this encounter
--- OUTSIDE RECORDS SUMMARY | 2025-03-14 08:07 | XMS_ITS | Clinical Summary ---
Author Organization [employer] Address [address] [facility] [address] [place] [address] Care Team Providers Care Clinic Administrator Name Role Phone Kermit Rangel MD Primary [...] 8:30 AM EDT Office Visit [facility] [address] [place] [address] Kermit Rangel MD Persistent atrial fibrillation (CMS/HCC) (Primary Dx); Iron deficiency anemia due to chronic blood loss 02/20/2025 Travel 02/17/2025 Telephone [facility] [address] [place] [address] Kermit Rangel MD chart prep 02/15/2025 Travel 01/16/2025 Telephone [facility] [address] [place] [address] Kermit Rangel MD 01/11/2025 Telephone [facility] [address] [place] [address] Kermit Rangel MD 01/10/2025 Refill [facility] [address] [place], [place] [phone] Aletha Waldrop MD from Last 3 Months [...] EDT) Iron 219(H) 45 - 160 mcg/dL [facility] Total Iron Binding Capacity 348 228 - 428 mcg/dL [facility] Percent Iron Saturation 63(H) 15 - 50 % [facility] Unsaturated Iron Binding 129 ug/dL [facility] 12/21/2024 7:10 AM EDT 12/21/2024 7:10 AM EDT us Generic External Data Provider LAB BLOOD ORDERAB LES Final Result [facility] [address] [place] [phone] * (ABNORMAL) Prothrombin Time-INR (12/21/2024 7:10 AM EDT) [facility] Prothrombin Time 14.5(H) 10.9 - 12.4 SEC [facility] INTERNATIONAL NORM RATIO 1.3(H) 0.9 - 1.1 [facility] Comment:INTERNATIONAL NORMAL IZED RATIO (INR) REFERENCE [...] Provider LAB BLOOD ORDERAB LES Final Result [facility] [address] [place] [address] [phone] * (ABNORMAL) CBC (12/21/2024 7:10 AM EDT) [facility] White Blood Count 6.2 4.8 - 10.8 X10*3/uL [facility] Red Blood Count 4.73 4.60 - 5.80 X10*6/uL [facility] Hemoglobin 15.0 14.0 - 18.0 g/dl [facility] Hematocrit 44.2 42.0 - 52.0 % [facility] Mean Corpuscular Volume 93.4 80.0 - 98.0 fL [facility] Mean Corpuscular Hemoglobin 31.7 27.0 - 33.0 pg [facility] Mean Corpuscular HGB Conc 33.9 31.0 - 36.0 g/dl [facility] Red Cell Distribution Width 14.4 11.0 - 16.0 % [facility] Platelet Count 152(L) 160 - 400 X10*3/uL [facility] Mean Platelet Volume 10.5 9.4 - 12.4 fL [facility] NRBC Pct Auto 0.0 0.0 - 0.2 /100WBC [facility] NRBC Abs Auto 0.000 0.0 - 0.012 X10*3/uL [facility] 12/21/2024 7:10 AM EDT 12/21/2024 7:10 AM EDT us Generic External Data Provider LAB BLOOD ORDERAB LES Final Result Performing Organization Address [facility] Co de Phone Number [facility] [address] [place] [address] [phone] * (ABNORMAL) Basic Metabolic Panel (12/21/2024 7:10 AM EDT) Sodium 140 135 - 145 mmol/L [facility] Potassium 4.4 3.3 - 5.1 mmol/L [facility] Chloride 102 96 - 108 mmol/L [facility] Carbon Dioxide 31(H) 22 - 29 mmol/L [facility] Anion Gap 11(L) 12 - 20 [facility] Urea Nitrogen (BUN) 10 9 - 16 mg/dL [facility] Creatinine, Serum 0.85 0.5 - 1.4 mg/dL [facility] Estimated Glomerular Filt Rate >60 [facility] Comment:Chronic Kidney Disea se: Estimated GFR < 60 mL/min/1.33t9Sauszy Kidney Disease: Estimated GFR < 15 mL/min/1.73m2 Glucose 82 60 - 115 mg/dL [facility] Calcium 9.0 8.4 - 10.2 mg/dL [facility] 12/21/2024 7:10 AM EDT 12/21/2024 7:10 AM EDT us Generic External Data Provider LAB BLOOD ORDERAB LES Final Result Performing Organization Address [facility]/ZIP Co de Phone Number [facility] [address] [place] [phone] * Lipid Panel, Standard (09/13/2024 7:22 AM EST) Triglycerides 90 <150 mg/dL [facility] Comment:Desirable Triglyceri de: less than 150 mg/dLBorderline High Triglyceride 150-199 mg/dLHigh Triglyceride: 200-499 mg/dLVery High Triglyceride: greater than or equal to 5OO mg/dL Cholesterol 134 <200 mg/dL [facility] Comment:Desirable Cholestero l: less than 200 mg/dLBorderline High Cholesterol: 200-239 mg/dLHigh Cholesterol: greater than 239 mg/dL LDL Cholesterol Calculated 66 <100 mg/dL [facility] Comment:Desirable LDL: less than 100 mg/dLNear Optimal/Above Optimal LDL: 110- 129 mg/dLBorderline High LDL: 130-159 mg/dLHigh LDL: 160-189 mg/dLVery High LDL: greater than or equal to 190 mg/dL HDL Cholesterol 50 >40 mg/dL [facility] Comment:Desirable HDL: great er than 40 mg/dL Note: This HDL assay may give artificially low results in patients with liver disease. 09/13/2024 7:22 AM EST 09/13/2024 7:22 AM EST us Generic External Data Provider LAB BLOOD ORDERAB LES Final Result [facility] [address] [place] [phone] from Last 3 Months or Most Recently Relevant to Health Maintenance Insurance [place] [id number] Advance Directives Documents on File Type Date Recorded Patient Cradle Slide Maker Expl anation Advance Directives and Livin g Will 01/09/2025 3:59 PM HCP Care Teams Clinic Administrator Relationship Specialty Start Date End Date Kermit Rangel MD [address] [place] [phone] PCP - General Internal Medicine 07/11/24 Glenn TOTH 07/28/24
--- OUTSIDE RECORDS SUMMARY | 2025-03-14 08:07 | XMS_ITS | Encounter Summary ---
Author Organization [employer] Address [address] [facility] [address] [place] [address] Care Team Providers Care Licensed Vocational Nurse Name Role Phone Kermit Rangel MD Primary Care Prov ider Reason for Visit * Reason Onset Date Comments FYI 09/15/2024 Encounter Details Date Type Department Care Team (Late st Contact Info) Description 09/15/2024 Telephone [facility] [address] [place] [address] Kermit Rangel MD [address] [place] [address] FYI Social History Tobacco Use Types Packs/Day [...] the past 12 months, has t he [employer], gas, oil or water [employer] threatened to shut off services in your [...] look at labs and contact Kisha at [phone]. documented in this encounter Plan of Treatment Not on file documented as of this encounter Visit Diagnoses Not on filedocumented in this encounter Additional Health Concerns Assessment Noted Time PHQ-9 Depression Total Score: 0 07/08/20 9:15 AM EST documented as of this encounter Care Teams Licensed Vocational Nurse Relationship Specialty Start Date End Date Kermit Rangel MD [address] [place] [phone] PCP - General Internal Medicine 07/11/24 Glenn TOTH 07/28/24 documented as of this encounter
--- NOTE | 2025-03-14 08:18 | HM_ITS ---
Conclusion: 1. Patient was monitored for total period of 2 days and 23 hours 2. Baseline was normal sinus rhythm with average heart of 52 beats per minute 3. No significant pauses noted but frequent sinus bradycardia noted with 85% of the time heart rate below 60 beats per minute 4. Frequent PVCs noted with total burden of 2.5% with multiple short runs of nonsustained ventricular tachycardia, longest lasting 16 beats and the fastest at 133 beats per minute 5. Occasional PACs noted without any sustained arrhythmias 6. No patient reported events MTDD
[2025-03-14 09:16] LABS: Alanine Aminotransferase 22 U/L (0-40); Albumin Level 4.0 g/dL (3.5-5.0); Alkaline Phosphatase 66 U/L (39-117); Aspartate Amino Transferase 30 U/L (5-37); Total Protein 6.7 g/dL (6.5-8.0)
== END ==
LOC: HO.CARD 08:02
PROVIDERS: PCP Internal Medicine; Visit Provider Nurse Practitioner Family
DX: I48.91 Unspecified atrial fibrillation (principal)
CPT/HCPCS: 36415; 80076; 84443; 93242

== ENCOUNTER → 2025-03-14 08:18 | Outpatient (BNV) | payer MEDICARE, MEDICAID, SELFPAY | PROVIDERS: PCP Internal Medicine; Visit Provider Internal Medicine Cardiovascular Disease | DX: I49.1 Atrial premature depolarization (principal); I49.3 Ventricular premature depolarization | CPT/HCPCS: 93244 ==

== ENCOUNTER 2025-03-29 11:54 | Inpatient (IN) | payer MEDICARE, OTHER, SELFPAY ==
--- OUTSIDE RECORDS SUMMARY | 2024-08-26 06:00 | XMS_ITS ---
Author Organization [facility] Address [address] [place] [address] Care Team Providers Care Information Systems Audit Manager Name Role Phone Cam acosta, Kermit Primary Care Prov ider Randolph Miguel Jr REASON FOR VISIT acute gastric ulcer w/ hemorrh Encounters Encounter Location Date Provider Diagnosis [facility] [place] [address] [place] [id number] 08/26/2024 Randolph Nogueira Jr Plan Of Treatment No Information Progress Notes * ТАТЬЯНА KIRKLAND LDOB:1944 (79 yo M)Acc No.[id number]:08/26/2024 EGD and COL/MAC Patient: ТАТЬЯНА NAPOLES Provider: Blanca Nogueira MD :1945 A ge:79 Y S ex:Male Date:08/26/2024 Address:[address] [place] [address] [address], [place] [id number] Pcp:Kermit porter md Subjective: * Chief Complaints: [...] Nogueira MD Date: 0 08/26/2024 Generated for Agustini ng/Fadylang/eTransmitting on: 0 03/29/2025 06:43 PM EDT
--- OUTSIDE RECORDS SUMMARY | 2024-10-14 04:20 | XMS_ITS ---
Author Organization [facility] Address [address] [place] [phone] Care Team Providers Care Chemical Engineering Professor Name Role Phone Cam acosta, Kermit Primary Care Prov ider Randolph Miguel Jr REASON FOR VISIT gastric ulcer, screening Encounters Encounter Location Date Provider Diagnosis [facility] [place] [address] [place] [id number] 10/14/2024 Randolph Nogueira Jr Colon cancer screening Z12.11 ; Colon polyps K63.5 and Gastric ulcer K25.9 Assessments Encounter Date Diagnosis (ICD Code) Assessment Notes Treatment Notes Treatment Clinical Notes Section Notes 10/14/2024 Colon cancer screening (ICD-10 - Z12.11) 10/14/2024 Colon polyps (ICD-10 - K63.5) 10/14/2024 Gastric ulcer (ICD-10 - K25.9) Plan Of Treatment No Information Progress Notes * ТАТЬЯНА KIRKLAND LDOB:1944 (79 yo M)Acc No.[id number]:10/14/2024 EGD and COL/MAC Patient: ТАТЬЯНА NAPOLES Provider: Blanca Nogueira MD :1945 A ge:79 Y S ex:Male Date:10/14/2024 Address:[address] [place] [address] [address], [id number] Pcp:Kermit porter md Subjective: * Chief Complaints: * 1 . Gastric ulcer, screening. * Medical History: Objective: * Vitals: Assessment: * Assessment: 1. C olon cancer screening - Z12.11 (Primary) 2 . C olon polyps - K63.5? 3. G astric ulcer - K25.9 Plan: * Treatment: * Procedure Codes: 4 5385 LESION REMOVAL COLONOSCOPY, 10473 UPPER GI ENDOSCOPY, BIOPSY * * The named appointment provid er may or may not be the originator of this progress note, and it is not deemed complete until electronically signed by the appointment provider. Sign off status: Pending * Provider: Blanca Nogueira MD Date: 0 10/14/2024 Generated for Kim villasenor/Princess/Kanitting on: 0 03/29/2025 06:43 PM EDT
--- OUTSIDE RECORDS SUMMARY | 2025-03-27 06:20 | XMS_ITS ---
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 Orally two tablets twice a day for one day for 1 day 08/18/2024 Not-Taking MiraLax (colon prep) 8.3 ounce ((238) grams mixed with Gatorade or Crystal Light orally begin at 5:00 p.m. the day before the procedure for 1 day 08/18/2024 Not-Taking MiraLax (colon prep) 8.3 ounce ((238) grams mixed with Gatorade or Crystal Light orally begin at 5:00 p.m. the day before the procedure for 1 day 08/17/2024 Not-Taking Dulcolax (colon prep) 5 MG take at 3:00 p.m and 7:00p.m. Orally two tablets twice a day for one day for 1 day 08/17/2024 Not-Taking Folic Acid 1 MG TAKE ONE TABLET EVER Y DAY Oral for 30 Not-Taking Iron (Ferrous Sulfate) 325 (65 Fe) MG 1 tablet Orally daily for 30 day(s) 06/29/2024 Not-Taking Omeprazole 40 MG Oral for 45 N ot-Taking Metoprolol Succinate ER 100 MG 1 tablet Orally Once a day Not-Taking Thiamine HCl 100 MG TAKE ONE TABLET EVER Y DAY Oral for 30 Not-Taking metroNIDAZOLE 500 MG 1 tablet Orally Thr ee times a day for 14 days 10/24/2024 Not-Taking Omeprazole 20 MG 1 Orally twice daily for 14 days 10/24/2024 Not-Taking Bismuth Subsalicylate 525 MG 1 Orally 4 times daily for 14 days 10/24/2024 Not-Taking Tetracycline HCl 500 MG 4 Orally 4 times a day for 14 days 10/24/2024 Not-Taking Apixaban 5 MG as directed Orally Not-Taking Acetaminophen 650 MG/20.3ML as directed Orally Not-Takin g dilTIAZem HCl 120 MG as directed Orally Not-Taking Digoxin 0.25 MG/ML as directed Injection Not-Taking Amiodarone HCl 200 MG 1 tablet Orally On ce a day Active Eliquis 5 MG one tablet Orally twice a day for 30 days Active Docusate Sodium 100 MG 1 capsule as need ed Orally Once a day for 30 day(s) Not-Taking Metoprolol Tartrate 50 MG 1 tablet with food Orally Twice a day Active Social History Tobacco Use: Social History Observation Description Date Details (start date - stop date) Never Smoker NA - NA Tobacco Use/Smoking Question Answer Notes Patient is a nonsmoker Alcohol Screen Question Answer Notes Did you have a drink containing alcohol in the p ast year? No Points 0 Interpretation Negative AUDIT-C (Standard) Question Answer Notes Did you have a drink contain ing alcohol in the past year? Yes How often did you have a dri nk containing alcohol in the past year? Daily or almost daily (4 points) How many drinks did you have on a typical day when you were drinking in the past year? 1 or 2 drinks (0 point) How often did you have six o r more drinks on one occasion in the past year? Never (0 point) Points 4 Interpretation Positive Vital Signs Temperature 97.4 degrees Fahrenheit 03/27/20 25 Blood pressure systolic 001 mm Hg 03/27/20 25 Blood pressure diastolic 01 mm Hg 025 Heart Rate 56 /min 03/27/2025 Height 71 in 03/27/2025 Weight 202.8 lbs 03/27/2025 BMI 28.28 kg/m2 03/27/2025 Encounters Encounter Location Date Provider Diagnosis [facility] [address] [place] [address] 03/27/2025 Randolph Nogueira Jr Acute gastric ulcer with hemorrhage K25.0 and Colon cancer screening Z12.11 Assessments Encounter Date Diagnosis (ICD Code) Assessment Notes Treatment Notes Treatment Clinical Notes Section Notes 03/27/2025 Acute gastric ulcer with hemorrhage (ICD-10 - K25.0) At this time, he is doing well. His H. pylori has been treated and he has no recurrent peptic ulcer disease symptoms. He will continue off omeprazole and avoid NSAIDs. We discussed limiting alcohol that none is better than any and less is better than more. He estimates he is drinking 1-3 drinks daily. He is up-to-date on colorectal cancer screening. Follow-up will be in the future as needed. 03/27/2025 Colon cancer screening (ICD-10 - Z12.11) At this time, he is doing well. His H. pylori has been treated and he has no recurrent peptic ulcer disease symptoms. He will continue off omeprazole and avoid NSAIDs. We discussed limiting alcohol that none is better than any and less is better than more. He estimates he is drinking 1-3 drinks daily. He is up-to-date on colorectal cancer screening. Follow-up will be in the future as needed. Plan Of Treatment Next Appt Details Follow Up: prn, Reason: Progress Notes * ТАТЬЯНА KIRKLAND LDOB:1944 (79 yo M)Acc No.[id number]:03/27/2025 Progress Notes Patient: ТАТЬЯНА NAPOLES Provider: Blanca Nogueira MD :1945 A ge:79 Y S ex:Male Date:03/27/2025 Address:[address] [place] [address] [address] [id number] Pcp:Kermit porter md Subjective: * Chief Complaints: * 1 . Patient presents today for a hx of h pylori. * HPI: N ew symptom(s): Mr. Kirkland returns today for follow-up. He underwent upper endoscopy because of his history of peptic ulcer disease in September of this year. This showed some scarring from his previous peptic ulcer disease but the gastric ulcer was healed. Biopsies showed H. pylori and he was treated for this. He underwent colonoscopy at the same time which showed a 10 mm pedunculated polyp which was a tubular adenoma. A second polyp was removed but not recovered and a rectal biopsy showed no evidence of colitis. We reviewed this today. He also had problems with hemorrhoids earlier this year that required surgery and is currently being followed by cardiology for atrial fibrillation that required cardioversion. * Medical History: G I bleed with gastric ulcer 07/12. * Surgical History: H ERNIA REPAIR BILATERAL AGE 4. * Hospitalization/Major Diagno stic Procedure: N ew years day hospitalized for a heart attack. 07/20/2024. * Family History: F ather: . M other: . No known hx of colon cancer polyps or liver ds. * Social History: T obacco Use: T obacco Use/Smoking P atient is a n onsmoker. D rugs/Alcohol: A lcohol Screen D id you have a drink containing alcohol in the past year? N o, P oints 0 , I nterpretation N egative. M iscellaneous: M arital status: . Occupation: retired. D rug/Alcohol: A THERESA-C (Standard) D id you have a drink containing alcohol in the past year? Y es,?How often did you have a drink containing alcohol in the past year? D aily or almost daily (4 points), H ow many drinks did you have on a typical day when you were drinking in the past year? 1 or 2 drinks (0 point), H ow often did you have six or more drinks on one occasion in the past year? N ever (0 point), P oints 4 , I nterpretation P ositive. * Medications: T aking Metoprolol Tartrate 50 MG Tablet 1 tablet with food Orally Twice a day , Taking Amiodarone HCl 200 MG Tablet 1 tablet Orally Once a day , Taking Eliquis 5 MG Tablet one tablet Orally twice a day , Not-Taking/PRN Docusate Sodium 100 MG Capsule 1 capsule as needed Orally Once a day , Not-Taking/PRN dilTIAZem HCl 120 MG Tablet as directed Orally , Not-Taking/PRN Digoxin 0.25 MG/ML Solution as directed Injection , Not-Taking/PRN Apixaban 5 MG Tablet as directed Orally , Not-Taking/PRN Acetaminophen 650 MG/20.3ML Solution as directed Orally , Not-Taking/PRN Omeprazole 20 MG Capsule Delayed Release 1 Orally twice daily , Not-Taking/PRN Bismuth Subsalicylate 525 MG Tablet 1 Orally 4 times daily , Not-Taking/PRN Tetracycline HCl 500 MG Capsule 4 Orally 4 times a day , Not-Taking/PRN metroNIDAZOLE 500 MG Tablet 1 tablet Orally Three times a day , Not-Taking/PRN Iron (Ferrous Sulfate) 325 (65 Fe) MG Tablet 1 tablet Orally daily , Not-Taking/PRN Omeprazole 40 MG Capsule Delayed Release Oral , Not-Taking/PRN Metoprolol Succinate ER 100 MG Tablet Extended Release 24 Hour 1 tablet Orally Once a day , Not-Taking/PRN Thiamine HCl 100 MG Tablet TAKE ONE TABLET EVERY DAY Oral , Not-Taking/PRN Folic Acid 1 MG Tablet TAKE ONE TABLET EVERY DAY Oral , Not-Taking/PRN MiraLax (colon prep) 8.3 ounce ((238) grams mixed with Gatorade or Crystal Light orally begin at 5:00 p.m. the day before the procedure , Not- Taking/PRN Dulcolax (colon prep) 5 MG Tablet Delayed Release take at 3:00 p.m and 7:00p.m. Orally two tablets twice a day for one day , Not-Taking/PRN Dulcolax (colon prep) 5 MG Tablet Delayed Release take at 3:00 p.m and 7:00p.m. Orally two tablets twice a day for one day , Not-Taking/PRN MiraLax (colon prep) 8.3 ounce ((238) grams mixed with Gatorade or Crystal Light orally begin at 5:00 p.m. the day before the procedure , Medication List reviewed and reconciled with the patient Objective: * Vitals: W t:202.8lbs, Ht:71in, BMI:28.28Index, BP:001/01mm Hg, HR:56/min, Temp:97.4, Ht- cm: 180.34, Wt-k.99. * Examination: G eneral Examination: O n examination today, he appears well. Skin is anicteric. Lungs are clear. Heart shows a regular rate and rhythm. Abdomen is soft without focal masses or tenderness. Extremities are without edema. Assessment: * Assessment: 1. A cute gastric ulcer with hemorrhage - K25.0 (Primary) 2 . C olon cancer screening - Z12.11 At this time, he is doing we ll. His H. pylori has been treated and he has no recurrent peptic ulcer disease symptoms. He will continue off omeprazole and avoid NSAIDs. We discussed limiting alcohol that none is better than any and less is better than more. He estimates he is drinking 1-3 drinks daily. He is up-to-date on colorectal cancer screening. Follow-up will be in the future as needed. Plan: * Treatment: * Procedure Codes: G 9903 Pt scrn tbco id as non user, G8785 BP SCR NOT PRFRM REC REASON NOS * Preventive Medicine: Counseling: C are goal follow-up plan: A bam Normal BMI Follow-up G iving encouragement to exercise. Screenings: F all Risk Screening F all Risk Assessment: N o falls in the past year, S creening: N o falls in the past year, P raoul of Care: N ot documented, no reason specified. * Follow Up: p rn * * Sign off status: Completed true * Provider: Blanca Nogueira MD Date: 03/27/2025 Generated for Kim villasenor/Princess/Kanitting on: 03/29/2025 06:43 PM EDT History and Physical Notes * HPI (History of Present Illness) Category Sub-Category Detail Notes Category Not es New symptom(s) Mr. Kirkland returns today for follow-up. He underwent upper endoscopy because of his history of peptic ulcer disease in September of this year. This showed some scarring from his previous peptic ulcer disease but the gastric ulcer was healed. Biopsies showed H. pylori and he was treated for this. He underwent colonoscopy at the same time which showed a 10 mm pedunculated polyp which was a tubular adenoma. A second polyp was removed but not recovered and a rectal biopsy showed no evidence of colitis. We reviewed this today. He also had problems with hemorrhoids earlier this year that required surgery and is currently being followed by cardiology for atrial fibrillation that required cardioversion. Examination Category Sub-Category Detail Notes Category Not es General Examination On [facility] today, he appears well. Skin is anicteric. Lungs are clear. Heart shows a regular rate and rhythm. Abdomen is soft without focal masses or tenderness. Extremities are without edema.
--- NOTE | 2025-03-29 12:03 | ED.GENADULT ---
HPI - General Adult General Chief complaint: Abdominal Pain Stated complaint: Dr Nogueira ref here for internal bleeding? Time Seen by Provider: 03/29/25 16:17 Source: patient, RN notes reviewed and old records reviewed Mode of arrival: ambulatory Limitations: language barrier History of Present Illness ED Provider: Duarte HPI narrative: 79-year-old male past medical history significant for coronary artery disease, atrial fibrillation on Eliquis, previous GI bleed presents for evaluation of black stool. Patient reports on Thursday he had several episodes of dark vomitus that he believes was blood. Does have a history of GI bleed and follows with Dr. Nogueira it does not seem that he has any history of esophageal varices he reports some epigastric abdominal pain. Denies any fevers, chills. He also has had black stool for the last couple of days. He reports occasional lightheadedness his daughter spoke to Dr. Nogueira who recommended he come into the hospital for evaluation. Related Data Previous Rx's ?Medication ?Instructions ?Recorded compr.stocking,knee,long,small #12 ea 06/21/24 (T.E.D. Knee [facility] [place] apixaban 5 mg tablet (Eliquis) 5 mg PO BID #60 tabs 09/01/24 amiodarone 200 mg tablet See Rx Instructions PO .COMPLEX 02/07/25 #100 tabs metoprolol tartrate 50 mg tablet 50 mg PO BID #180 tabs 03/02/25 Allergies Allergy/AdvReac Type Severity Reaction Status Date / Time No Known Allergies Allergy Verified 03/29/25 12:05 Review of Systems Constitutional: Constitutional: Denies body ache(s), Denies chills, Denies fever(s) and Denies headache(s) Eyes: Eyes: Denies blurry vision ENT: Denies vertigo, Denies dizziness and Denies headache(s) Cardiovascular: Cardiovascular: Denies chest pain, Reports lightheadedness and Denies dyspnea on exertion Respiratory: Respiratory: Denies cough and Denies dyspnea on exertion Gastrointestinal: Gastrointestinal: Reports abdominal pain, Reports melena, Reports coffee ground emesis, Reports nausea, Reports vomiting and Reports hematemesis Musculoskeletal: Musculoskeletal: Denies back pain Integumentary/Breasts: Skin/Breast: Denies rash Neurologic: Denies vertigo, Denies dizziness and Denies headache(s) [facility] Past Medical History Medical History Bilateral cataracts Hemorrhoids Daily consumption of alcohol Arthritis Iron deficiency anemia Gastric ulcer Atrial fibrillation with RVR Orthostasis NSVT (nonsustained ventricular tachycardia) Upper gastrointestinal bleed Surgical History H/O hemorrhoidectomy (11/04/24) Hx of hernia repair History of esophagogastroduodenoscopy (EGD) Social History Social History Household Members: None Housing: Apartment Do you presently have visiting nurse or other home services: No Alcohol intake: current Alcohol intake frequency: 3 or more drinks per day Alcohol type: beer Patient Tobacco Use Status: Former Tobacco user Smoked in Last 30 Days: No Use of substances other than those prescribed or required for medical reasons: No Advance Directives: Yes Advance Directives on File: Yes Advance Directives Date on File: 06/22/24 Do you have a plan to hurt others: No Plan service: No Physical Exam ED Vital Signs: Vital Signs - 24 hr 03/29/25 12:04 03/29/25 16:21 Temperature 98.2 F 98.1 F Pulse Rate 69 76 Respiratory Rate 18 Blood Pressure 139/72 155/82 H Pulse Oximetry 97 99 Oxygen Delivery Method Room Air Room Air BMI result Body Mass Index 28.2 Const General: healthy appearing, comfortable, no acute distress, alert and awake Nutritional Appearance: well nourished Orientation/consciousness: patient oriented x3 HENMT Head: Yes normocephalic and Yes atraumatic Eyes Eyelids: Yes eyelids normal Conjunctivae: conjunctivae normal Sclerae: sclerae normal Corneas: corneas normal Pupils: Equal, round and reactive pupils present EOM: EOMs intact bilaterally Neck Neck: Yes full ROM Resp Effort & Inspection: normal respiratory effort, able to speak in complete sentences and not labored Cardio Rate: regular rate Rhythm: regular rhythm GI Inspection: No distended Palpation (GI): Soft to palpation, not firm, Tenderness to palpation present (GI) in the epigastrum and in the LUQ; not in the LLQ, not in the RLQ and not in the RUQ, no guarding and not rigid Rectal Exam - Male: Yes visual inspection normal, Yes normal sphincter tone, Yes Abnormal stool present (dark tarry stool) and Yes heme positive stool Skin General skin exam: elasticity normal Neuro General: patient oriented x3 Cranial nerves: Yes Equal, round and reactive pupils present and Yes Bilaterally intact EOM present Cognition (Neuro): normal cognition Extrem Other: Moving all extremities well without any obvious deformities Course Course Course Narrative: This is a Rapid Medical Examination (RME) performed by Melodie Pantoja PA-C in triage. Full HPI, ROS, assessment and treatment plan per primary provider in the Main ED. Hx: 79 yo M hx of afib, iron deficiency anemia, hemorrhoids here for eval of dark stools x3 days. called GI who advised him to come to the ED. hx of GI bleed. no longer on iron supplementation. he is on eliquis. PE/vitals: well appearing, no pallor, vitals stable Plan: labs Reevaluation(s) Reevaluation #1: Received call back from COLTEN Clayton. He recommends clear liquid diet through tomorrow, plan for endoscopy on Thursday due to Eliquis use. The patient does admit to taking his Eliquis this morning. He also recommends b.i.d. PPI. Obvious of the we will hold Eliquis Time: 18:22 Medications Administered Discontinued Medications Generic Name Dose Route Start Last Admin Trade Name Freq PRN Reason Stop Dose Admin Pantoprazole Sodium 80 mg 03/29/25 16:53 03/29/25 17:07 Pantoprazole Sodium 40 Mg/10 Ml Vial IVPUSH 03/29/25 16:54 80 mg ONCE ONE Administration Medical Decision Making Medical Decision Making [facility] Narrative: 79-year-old male past medical history as above presents for evaluation of epigastric abdominal pain. Has a history of duodenal ulcers. His last abdominal CT scan in the system was in May of 2024 and has no mentioned in his esophageal varices. The patient complains of dark vomitus and dark stools. He does have dark black stool on exam. His labs show a hemoglobin 12.8 and a hematocrit of 36.6, this represents a drop about 2 points in hemoglobin from December of 2024 in his hemoglobin was 15.0. Of note, the patient's platelet count is slightly low at 151. , as mentioned previously he is on Eliquis due to AFib. His BUN to creatinine ratio is about 46-1. This is concerning for possible upper GI bleed. I administered pantoprazole 80 mg IV. Plan for GI consult. the patient is hemodynamically stable, he is hypotensive with a blood pressure 155/82 and a heart rate of 76. Differential Diagnosis Differential Diagnoses: The differential diagnosis associated with the presentation includes Upper GI bleed Gastric ulcers Esophageal varices less likely Anemia Iron-deficiency anemia Coagulopathy Admission/Observation Consideration of admission/observation: Escalation of care including admission/observation considered patient will likely require admission for upper GI bleed on Eliquis Lab Data MDM Lab Attestation statement: I reviewed the patient's lab results. as above 03/29/25 12:10 03/29/25 12:10 Labs: Lab Results 03/29/25 03/29/25 Range/Units 12:10 17:02 WBC 8.4 (4.8-10.8) X10*3/uL RBC 3.83 L (4.60-5.80) X10*6/uL Hgb 12.8 L (14.0-18.0) g/dl Hct 36.6 L (42.0-52.0) % MCV 95.6 (80.0-98.0) fL MCH 33.4 H (27.0-33.0) pg MCHC 35.0 (31.0-36.0) g/dl RDW 13.1 (11.0-16.0) % Plt Count 151 L (160-400) X10*3/uL MPV 10.4 (9.4-12.4) fL Immature Gran % (Auto) 2.6 H (0.0-0.4) % Neut % (Auto) 75.6 H (45-73) % Lymph % (Auto) 13.2 L (20-40) % Vernon % (Auto) 7.4 (2-11) % Eos % (Auto) 0.7 (0-4) % Baso % (Auto) 0.5 (0-2) % Lymph # (Auto) 1.1 L (1.2-4.9) X10*3/uL Vernon # (Auto) 0.6 (0.1-1.2) X10*3/uL Eos # (Auto) 0.1 (0.0-0.4) X10*3/uL Baso # (Auto) 0.0 (0.0-0.2) X10*3/uL Abs Immat Gran (auto) 0.22 H (0.00-0.03) X10*3/uL Absolute Neuts (auto) 6.4 (2.0-8.3) x10*3/uL Absolute Nucleated RBC 0.000 (0.0-0.012) X10*3/uL Nucleated RBC % (auto) 0.0 (0.0-0.2) /100WBC PT 15.5 H (10.9-12.4) SEC INR 1.4 H (0.9-1.1) Sodium 142 (135-145) mmol/L Potassium 4.1 (3.3-5.1) mmol/L Chloride 106 (96-108) mmol/L Carbon Dioxide 27 (22-29) mmol/L Anion Gap 13 (12-20) BUN 48 H (9-16) mg/dL Creatinine 1.04 (0.5-1.4) mg/dL Estim Creat Clear Calc 65.5 Estimated GFR > 60 Random Glucose 100 (60-115) mg/dL Calcium 8.8 (8.4-10.2) mg/dL Magnesium 2.0 (1.6-2.6) mg/dL Total Bilirubin 1.2 H (0.0-1.0) mg/dL AST 24 (5-37) U/L ALT 17 (0-40) U/L Alkaline Phosphatase 68 (39-117) U/L Total Protein 6.5 (6.5-8.0) g/dL Albumin 3.8 (3.5-5.0) g/dL Lipase 69 (8-78) U/L Stool Occult Blood POSITIVE (NEGATIVE) Independent Interpretation I performed an independent interpretation of an: EKG ( sinus rhythm with noted PVC, rate of 67 beats minute) Tests considered The following testing was considered but not selected: consider CT angiography of the abdomen pelvis but the patient does not appear to be hemorrhaging. We will reconsider pending consult with GI Discharge Plan Discharge Clinical Impression: Atrial fibrillation, Acute upper GI bleed Patient Disposition: Admitted As Inpatient Print Language: [place]
[2025-03-29 12:04] VITALS: BP 139/72; PULSE 69; RESP 18; TEMP 36.8; O2SAT 97; BMI 28.2
[2025-03-29 12:13] LABS: MANUAL DIFF FLAG NO
[2025-03-29 12:15] LABS: Hematocrit 36.6 % (42.0-52.0); Hemoglobin 12.8 g/dl (14.0-18.0); Imm Gran Abs Auto 0.22 X10*3/uL (0.00-0.03); Imm Gran Pct Auto 2.6 % (0.0-0.4); Lymphocytes Absolute Auto 1.1 X10*3/uL (1.2-4.9); Mean Corpuscular HGB Conc 35.0 g/dl (31.0-36.0); Mean Corpuscular Hemoglobin 33.4 pg (27.0-33.0); Mean Corpuscular Volume 95.6 fL (80.0-98.0); NRBC Abs Auto 0.000 X10*3/uL (0.0-0.012); NRBC Pct Auto 0.0 /100WBC (0.0-0.2); Platelet Count 151 X10*3/uL (160-400); Red Blood Count 3.83 X10*6/uL (4.60-5.80); White Blood Count 8.4 X10*3/uL (4.8-10.8)
[2025-03-29 12:35] LABS: Alanine Aminotransferase 17 U/L (0-40); Albumin Level 3.8 g/dL (3.5-5.0); Alkaline Phosphatase 68 U/L (39-117); Anion Gap 13 (12-20); Aspartate Amino Transferase 24 U/L (5-37); Blood Urea Nitrogen 48 mg/dL (9-16); Calcium 8.8 mg/dL (8.4-10.2); Carbon Dioxide 27 mmol/L (22-29); Chloride 106 mmol/L (96-108); Creatinine Clr Calc Pharmacy 65.5; Estimated Glomerular Filt Rate > 60; Lipase 69 U/L (8-78); Magnesium 2.0 mg/dL (1.6-2.6); Potassium 4.1 mmol/L (3.3-5.1); Sodium 142 mmol/L (135-145); Total Protein 6.5 g/dL (6.5-8.0)
[2025-03-29 16:21] VITALS: BP 155/82; PULSE 76; TEMP 36.7; O2SAT 99
--- NOTE | 2025-03-29 16:42 | ECG_ITS ---
Test Reason : LIGHTHEADEDNESS Blood Pressure : */* mmHG Vent. Rate : 67 BPM Atrial Rate : 67 BPM P-R Int : 128 ms QRS Dur : 104 ms QT Int : 424 ms P-R-T Axes : 36 -26 -11 degrees QTcB Int : 448 ms Sinus rhythm with occasional Premature ventricular complexes Otherwise normal ECG When compared with ECG of 07-Feb-2025 14:53, Premature ventricular complexes are now Present Aberrant conduction is no longer Present Referred By: Jonathan Ramachandran Electronically Signed By: MENDEZ HEARD MD
[2025-03-29 17:07] LABS: OBS Int Ctl Valid YES; OBS1 POSITIVE (NEGATIVE)
[2025-03-29 17:18] LABS: INTERNATIONAL NORM RATIO 1.4 (0.9-1.1); Prothrombin Time 15.5 SEC (10.9-12.4)
--- OUTSIDE RECORDS SUMMARY | 2025-03-29 18:43 | XMS_ITS | Clinical Summary ---
Author Organization [employer] Address [address] [facility] [address] [place] [address] Care Team Providers Care Drier Take Off Tender Name Role Phone Kermit Rangel MD Primary Care Prov ider Allergies No known active allergies Medications Eliquis 5 MG tablet Take 1 tablet by mouth 2 times daily. 07/26/2024 Active metoprolol tartrate (Lopressor) 100 MG tablet Take 100 mg by mouth 2 times daily. 07/26/2024 Active Active Problems Problem Noted Date Diagnosed [...] [facility] [address] [place] [address] Kermit Rangel MD Persistent atrial fibrillation (CMS/HCC) (Primary Dx); Iron deficiency anemia due to chronic blood loss 02/20/2025 Travel 02/17/2025 Telephone [facility] [address] [place] [address] Kermit Rangel MD chart prep 02/15/2025 Travel 01/16/2025 Telephone [facility] [address] [place] [phone] Kermit Rangel MD 01/11/2025 Telephone [facility] [address] [place] [address] Kermit Rangel MD 01/10/2025 Refill [facility] [address] [place] [address] Aletha Waldrop MD from Last 3 Months [...] 75+ series) 2019 COVID-19 Vaccine (4 - 2024-2 6 season) 2025 2021, 09/27/2020, 08/31/2020 Influenza Vaccine (#1) 2025 [...] Procedure Name Priority Date/Time Associated Diagnosis Comments TSH W/REFLEX TO FT4 Routine 03/14/2025 8 :29 AM EDT HEPATIC FUNCTION PANEL Routine 03/14/2025 8:29 AM EDT LIPID PANEL, STANDARD Routine 09/13/2024 7:22 AM EST from Last 3 Months or Most Recently Relevant to Health Maintenance Results * TSH with Reflex to Free T4 (03/14/2025 8:29 AM EDT) TSH reflex Free T4 2.41 0.32 - 4.0 uIU/mL [facility] 03/14/2025 8:29 AM EDT 03/14/2025 8:29 AM EDT us Generic External Data Provider LAB BLOOD ORDERAB LES Final Result Performing Organization Address [facility] Co de Phone Number [facility] [address] [place] [phone] * (ABNORMAL) Hepatic Function Panel (03/14/2025 8:29 AM EDT) Bilirubin, Total 1.9(H) 0.0 - 1.0 mg/dL [facility] Comment:Slight Icterus. Bilirubin, Direct 0.5 0.0 - 0.5 mg/dL [facility] Comment:Slight Icterus. Aspartate Amino Transferase 30 5 - 37 U/L [facility] Alanine Aminotransferase 22 0 - 40 U/L [facility] Total Protein 6.7 6.5 - 8.0 g/dL [facility] Albumin Level 4.0 3.5 - 5.0 g/dL [facility] Alkaline Phosphatase 66 39 - 117 U/L [facility] 03/14/2025 8:29 AM EDT 03/14/2025 8:29 AM EDT us Generic External Data Provider LAB BLOOD ORDERAB LES Final Result Performing Organization Address [facility] Co de Phone Number [facility] [address] [place] [phone] * Lipid Panel, Standard (09/13/2024 7:22 AM EST) Triglycerides 90 <150 mg/dL [facility] Comment:Desirable Triglyceri de: less than 150 mg/dLBorderline High Triglyceride 150-199 mg/dLHigh Triglyceride: 200-499 mg/dLVery High Triglyceride: greater than or equal to 5OO mg/dL Cholesterol 134 <200 mg/dL [facility] Comment:Desirable Cholestero l: less than 200 mg/dLBorderline High Cholesterol: 200-239 mg/dLHigh Cholesterol: greater than 239 mg/dL LDL Cholesterol Calculated 66 <100 mg/dL [facility] Comment:Desirable LDL: less than 100 mg/dLNear Optimal/Above Optimal LDL: 110- 129 mg/dLBorderline High LDL: 130-159 mg/dLHigh LDL: 160-189 mg/dLVery High LDL: greater than or equal to 190 mg/dL HDL Cholesterol 50 >40 mg/dL [facility] Comment:Desirable HDL: great er than 40 mg/dL Note: This HDL assay may give artificially low results in patients with liver disease. 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
--- OUTSIDE RECORDS SUMMARY | 2025-03-29 18:44 | XMS_ITS | Encounter Summary ---
Author Organization [employer] Address [address] [facility] [address] [place] [address] Care Team Providers Care Predator Control Trapper Name Role Phone Kermit Rangel MD Primary Care Prov ider Reason for Visit * Reason Onset Date Comments Appointment Request 07/29/2024 Encounter Details Date Type Department Care Team (Late st Contact Info) Description 07/29/2024 Telephone [facility] [address] [place] [address] Kermit Rangel MD [address] [place] [address] Appointment Request Social History Tobacco Use Types [...] for that day if theres any availability. [phone] documented in this encounter Plan of Treatment Not on file documented as of this encounter Visit Diagnoses Not on filedocumented in this encounter Additional Health Concerns Assessment Noted Time PHQ-9 Depression Total Score: 0 07/08/20 9:15 AM EST documented as of this encounter Care Teams Predator Control Trapper Relationship Specialty Start Date End Date Kermit Rangel MD [address] [place] [phone] PCP - General Internal Medicine 07/11/24 Glenn TOTH 07/28/24 documented as of this encounter
--- OUTSIDE RECORDS SUMMARY | 2025-03-29 18:44 | XMS_ITS | Encounter Summary ---
Author Organization [employer] Address [address] [facility] [address] [place] [address] Care Team Providers Care Diver'S Tender Name Role Phone Kermit Rangel MD Primary Care Prov ider Reason for Visit * Reason Onset Date Comments FYI 09/15/2024 Encounter Details Date Type Department Care Team (Late st Contact Info) Description 09/15/2024 Telephone [facility] [address] [place] [address] Kermit Rangel MD [address] [place] [address] FYI Social History Tobacco Use Types Packs/Day [...] the past 12 months, has t he [employer], gas, oil or water [employer] threatened to shut off services in your [...] look at labs and contact Kisha at [phone]. documented in this encounter Plan of Treatment Not on file documented as of this encounter Visit Diagnoses Not on filedocumented in this encounter Additional Health Concerns Assessment Noted Time PHQ-9 Depression Total Score: 0 07/08/20 9:15 AM EST documented as of this encounter Care Teams Diver'S Tender Relationship Specialty Start Date End Date Kermit Rangel MD [address] [place] [phone] PCP - General Internal Medicine 07/11/24 Glenn TOTH 07/28/24 documented as of this encounter
--- OUTSIDE RECORDS SUMMARY | 2025-03-29 18:44 | XMS_ITS | Encounter Summary ---
Author Organization [employer] Address [address] [facility] [address] [place] [address] Care Team Providers Care Valet Runner Name Role Phone Kermit Rangel MD Primary Care Prov ider Encounter Details Date Type Department Care Team (Late st Contact Info) Description 07/11/2024 Telephone [facility] [address] [place] [address] Kermit Rangel MD [address] [place] [address] Social History Tobacco Use Types Packs/Day Years [...] documented as of this encounter Care Teams Valet Runner Relationship Specialty Start Date End Date Kermit Rangel MD [address] [place] [phone] PCP - General Internal Medicine 07/11/24 Glenn TOTH 07/28/24 documented as of this encounter
--- OUTSIDE RECORDS SUMMARY | 2025-03-29 18:44 | XMS_ITS | Patient Health Record ---
Author Organization [facility] Address [address] [place] [address] Care Team Providers Care Knotter Hand Name Role Phone Cam acosta, Kermit Primary Care Prov idetony Nogueira Jr, Randolph Unavailable Allergies No Known Allergies Results Component Value Reference Range Notes Type and Screen Reviewed date:06/20/2024 09:16:50 AM Interpretation: Performing Lab:[facility], [address] [place] [phone] Notes/Report: Results at Issue Units as of 06/18/24 1158 ... Test View Group: Most Recent HGB HCT Results LABORATORY Date Time Test Result Flag Normal Range 06/18/24 0804 HGB 8.3 L 14.0-18.0 g/dl 06/18/24 0804 HCT 23.7 L 42.0-52.0 % Hgb 7-9 gm na No no Blood Type AP Antibody Screen NEGATIVE Red Blood Cells Reviewed date:06/20/2024 09:16:57 AM Interpretation: Performing Lab:[facility], [address] [place] [phone] Notes/Report: Red Blood Cells [id number] AP RC Red Blood Cells TRANSFUSED 06/18/24 1157 Red Blood Cells [id number] AP RC Red Blood Cells NOT AVAILABLE Pathology Reviewed date:06/24/2024 09:37:10 PM Interpretation: Performing Lab:[facility], [address] [place] [phone] Notes/Report: Complete Blood Count no Diff Reviewed date:06/20/2024 09:16:35 AM Interpretation: Performing Lab:[facility], [address] [place] [phone] Notes/Report: White Blood Count 4.6 4.8-10.8 X10*3/uL [...] Panel Reviewed date:06/20/2024 09:16:43 AM Interpretation: Performing Lab:[facility], [address] [place] [phone] Notes/Report: Sodium 138 135-145 mmol/L Potassium 3.9 [...] Diff Reviewed date:06/24/2024 09:37:45 PM Interpretation: Performing Lab:[facility], [address] [place] [phone] Notes/Report: White Blood Count 5.7 4.8-10.8 X10*3/uL [...] PROFILE Reviewed date:06/24/2024 09:36:37 PM Interpretation: Performing Lab:[facility], [address] [place] [phone] Notes/Report: Iron 31 45-160 mcg/dL Total Iron Binding Capacity 257 228-428 mcg/dL Percent Iron Saturation 12 15-50 % Unsaturated Iron Binding 226 Ferritin Reviewed date:06/24/2024 09:37:24 PM Interpretation: Performing Lab:[facility], [address] [place] [phone] Notes/Report: Ferritin 45 20-250 ng/mL Complete Blood Count Auto Di ff Reviewed date:07/05/2024 03:41:05 PM Interpretation: Performing Lab:[facility], [address] [place] [phone] Notes/Report: White Blood Count 5.7 4.8-10.8 X10*3/uL [...] 0.0-0.2 /100WBC Neutrophils Absolute Auto 4.3 2.0-8.3 x10*3/u L Imm Gran Abs Auto 0.03 0.00-0.03 X10*3/uL Lymphocytes Absolute Auto 1.0 1.2-4.9 X10*3/u L Monocytes Absolute Auto 0.3 0.1-1.2 X10*3/uL Eosinophils Absolute Auto 0.1 0.0-0.4 X10*3/u L Basophils Absolute Auto 0.0 0.0-0.2 X10*3/uL NRBC Abs Auto 0.000 0.0-0.012 X10*3/uL IRON PROFILE Reviewed date:07/05/2024 03:40:58 PM Interpretation: Performing Lab:[address] [phone] Notes/Report: Iron 103 45-160 mcg/dL Total Iron Binding Capacity 283 228-428 mcg/dL Percent Iron Saturation 36 15-50 % Unsaturated Iron Binding 180 Ferritin Reviewed date:07/05/2024 03:41:16 PM Interpretation: Performing Lab:[address] [phone] Notes/Report: Ferritin 27 20-250 ng/mL Pathology Reviewed date:10/24/2024 08:53:37 AM Interpretation: Performing Lab:[facility], [address] [place] [phone] Notes/Report: Complete Blood Count Auto Di ff Reviewed date:03/29/2025 02:15:07 PM Interpretation: Performing Lab:[facility], [address] [place] [phone] Notes/Report: White Blood Count 8.4 4.8-10.8 X10*3/uL Red Blood Count 3.83 4.60-5.80 X10*6/uL Hemoglobin 12.8 14.0-18.0 g/dl Hematocrit 36.6 42.0-52.0 % Mean Corpuscular Volume 95.6 80.0-98.0 fL Mean Corpuscular Hemoglobin 33.4 27.0-33.0 pg Mean Corpuscular HGB Conc 35.0 31.0-36.0 g/dl Red Cell Distribution Width 13.1 11.0-16.0 % Platelet Count 151 160-400 X10*3/uL Mean Platelet Volume 10.4 9.4-12.4 fL Neutrophils Percent Auto 75.6 45-73 % Imm Gran Pct Auto 2.6 0.0-0.4 % Lymphocytes Percent Auto 13.2 20-40 % Monocytes Percent Auto 7.4 2-11 % Eosinophils Percent Auto 0.7 0-4 % Basophils Percent Auto 0.5 0-2 % NRBC Pct Auto 0.0 0.0-0.2 /100WBC Neutrophils Absolute Auto 6.4 2.0-8.3 x10*3/u L Imm Gran Abs Auto 0.22 0.00-0.03 X10*3/uL Lymphocytes Absolute Auto 1.1 1.2-4.9 X10*3/u L Monocytes Absolute Auto 0.6 0.1-1.2 X10*3/uL Eosinophils Absolute Auto 0.1 0.0-0.4 X10*3/u L Basophils Absolute Auto 0.0 0.0-0.2 X10*3/uL NRBC Abs Auto 0.000 0.0-0.012 X10*3/uL Prothrombin Time INR (Not ye t reviewed by provider) Interpretation: Performing Lab:[facility], [address] [place] [phone] Notes/Report: Prothrombin Time 15.5 10.9-12.4 SEC INTERNATIONAL NORM RATIO 1.4 0.9-1.1 INTERNATIONAL NORMALIZED RATIO (INR) REFERENCE RANGES Reference Range For patients not on anticoagulant therapy: 0.9 - 1.1 INR ranges for oral anticoagulant therapy: For prevention and treatment of venous thrombosis and pulmonary embolism: 2.0 - 3.0 For acute myocardial infarction with aspirin therapy: 2.0 - 3.0 For acute myocardial infarction without aspirin therapy: 3.0 - 4.0 For patients with mechanical prosthetic heart valves: 2.5 - 3.5 OBSX1 (Not yet reviewed by lee mcdonough) Interpretation: Performing Lab:[facility], [address] [place] [phone] Notes/Report: OBS1 POSITIVE NEGATIVE Comprehensive Met. Panel Reviewed date:03/29/2025 02:14:51 PM Interpretation: Performing Lab:[facility], [address] [place] [phone] Notes/Report: Sodium 142 135-145 mmol/L Potassium 4.1 3.3-5.1 mmol/L Chloride 106 96-108 mmol/L Carbon Dioxide 27 22-29 mmol/L Anion Gap 13 12-20 Blood Urea Nitrogen 48 9-16 mg/dL Creatinine 1.04 0.5-1.4 mg/dL Creatinine Clr Calc Pharmacy 65.5 eGFR (calculated from the MDRD study equation) and eCrCl (calculated from the Cockcroft-Gault equation) are based on different parameters and may not yield comparable results. If eCrCl result is absurd, please check patient's height/weight. Estimated Glomerular Filt Rate > 60 Chronic Kidney Disease: Estimated GFR < 60 mL/min/1.73m2 Severe Kidney Disease: Estimated GFR < 15 mL/min/1.73m2 Glucose Random 100 60-115 mg/dL Calcium 8.8 8.4-10.2 mg/dL Bilirubin Total 1.2 0.0-1.0 mg/dL Aspartate Amino Transferase 24 5-37 U/L Alanine Aminotransferase 17 0-40 U/L Total Protein 6.5 6.5-8.0 g/dL Albumin Level 3.8 3.5-5.0 g/dL Alkaline Phosphatase 68 39-117 U/L Magnesium Reviewed date:03/29/2025 02:14:46 PM Interpretation: Performing Lab:[facility], [address] [place] [phone] Notes/Report: Magnesium 2.0 1.6-2.6 mg/dL Lipase Reviewed date:03/29/2025 02:14:40 PM Interpretation: Performing Lab:[facility], [address] [place] [address] Notes/Report: Lipase 69 8-78 U/L Reason For Referral No Information Medications Medication SIG (Take, Route, Frequency, Duration) Notes Start Date End Date Status dilTIAZem HCl 120 MG as directed Orally Not-Taking Digoxin 0.25 MG/ML as directed Injection Not-Taking Apixaban 5 MG as directed Orally Not-Taking MiraLax (colon prep) 8.3 ounce ((238) grams mixed with Gatorade or Crystal Light orally begin at 5:00 p.m. the day before the procedure for 1 day 08/17/2024 Not-Taking Acetaminophen 650 MG/20.3ML as directed Orally Not-Takin g Dulcolax (colon prep) 5 MG take at 3:00 p.m and 7:00p.m. Orally two tablets twice a day for one day for 1 day 08/17/2024 Not-Taking Metoprolol Tartrate 50 MG 1 tablet with food Orally Twice a day Active Amiodarone HCl 200 MG 1 tablet Orally On ce a day Active Eliquis 5 MG one tablet Orally twice a day for 30 days Active Docusate Sodium 100 MG 1 capsule as need ed Orally Once a day for 30 day(s) Not-Taking Iron (Ferrous Sulfate) 325 (65 Fe) MG 1 tablet Orally daily for 30 day(s) 06/29/2024 Not-Taking Omeprazole 40 MG Oral for 45 N ot-Taking Metoprolol Succinate ER 100 MG 1 tablet Orally Once a day Not-Taking Thiamine HCl 100 MG TAKE ONE TABLET EVER Y DAY Oral for 30 Not-Taking Omeprazole 20 MG 1 Orally twice daily for 14 days 10/24/2024 Not-Taking Dulcolax (colon prep) 5 MG take at 3:00 p.m and 7:00p.m. Orally two tablets twice a day for one day for 1 day 08/18/2024 Not-Taking Bismuth Subsalicylate 525 MG 1 Orally 4 times daily for 14 days 10/24/2024 Not-Taking MiraLax (colon prep) 8.3 ounce ((238) grams mixed with Gatorade or Crystal Light orally begin at 5:00 p.m. the day before the procedure for 1 day 08/18/2024 Not-Taking Tetracycline HCl 500 MG 4 Orally 4 times a day for 14 days 10/24/2024 Not-Taking metroNIDAZOLE 500 MG 1 tablet Orally Thr ee times a day for 14 days 10/24/2024 Not-Taking Folic Acid 1 MG TAKE ONE TABLET EVER Y DAY Oral for 30 Not-Taking Social History Tobacco Use: Social History Observation Description Date Details (start date - stop date) Never Smoker NA - NA Tobacco Use/Smoking Question Answer Notes Patient is a nonsmoker AUDIT-C (Standard) Question Answer Notes Did you [...] Never (0 point) Points 4 Interpretation Positive Problems Problem Type SNOMED Code ICD Code Onset Dates Problem Status W/U Status Risk Notes Problem 975926213 Colon cancer screening (Z12.11) Active confirmed Problem 13560355 Acute gastric ulcer with hemorrhage (K25.0) Active confirmed Vital Signs Heart Rate 56 /min 03/27/2025 Temperature 97.4 degrees Fahrenheit 03/27/2025 Blood pressure diastolic 01 mm Hg 03/27/2025 Height 71 in 03/27/2025 Blood pressure systolic 001 mm Hg 03/27/2025 Weight 202.8 lbs 03/27/2025 BMI 28.28 kg/m2 03/27/2025 Encounters Encounter Location Date Provider Diagnosis [facility] Outpatient [address] [place], [place] [id number] 10/14/2024 Randolph Nogueira Jr Colon cancer screening Z12.11 ; Colon polyps K63.5 and Gastric ulcer K25.9 [facility] [address] [facility] [address] [place] [address] 06/29/2024 Randolph Nogueira Jr Acute gastric ulcer with hemorrhage K25.0 and Colon cancer screening Z12.11 [facility] [address] [place] [address] 03/27/2025 Randolph Nogueira Jr Acute gastric ulcer with hemorrhage K25.0 and Colon cancer screening Z12.11 [facility] [address] [place] [address] 06/22/2024 Randolph Nogueira Jr Acute gastric ulcer with hemorrhage K25.0 [facility] [address] [place] [address] 06/28/2024 Randolph Nogueira Jr [facility] [address] [place] [address] 07/05/2024 Randolph Nogueira Jr [facility] [address] [place] [address] 07/21/2024 Randolph Nogueira Jr [facility] [address] [place] [address] 08/12/2024 Randolph Nogueira Jr [facility] [address] [place] [address] 08/18/2024 Randolph Nogueira Jr [facility] [address] [place] [address] 08/19/2024 Randolph Nogueira Jr [facility] [address] [place] [address] 08/19/2024 Randolph Nogueira Jr [facility] [address] [place] [address] 08/31/2024 Randolph Nogueira Jr [facility] [address] [place] [address] 10/24/2024 Randolph Nogueira Jr H. pylori infection A04.8 [facility] [address] [place] [address] 03/29/2025 Randolph Nogueira Jr Assessments Encounter Date Diagnosis [...] that stools may be black from iron. 03/27/2025 Colon cancer screening (ICD-10 - Z12.11) [...] be in the future as needed. 03/27/2025 Acute gastric ulcer with hemorrhage (ICD-10 [...] will be in the future as needed. 06/22/2024 Acute gastric ulcer with hemorrhage (ICD-10 - K25.0) 10/24/2024 H. pylori infection (ICD-10 - A04.8) 10/14/2024 Gastric ulcer (ICD-10 - K25.9) Plan Of Treatment Pending Test Test Name Order Date IRON + IBC (FE) 06/29/2024 IRON + IBC (FE) 06/22/2024 FERRITIN 06/22/2024 FERRITIN 06/29/2024 CBC w/o DIFF 06/22/2024 CBC w/o DIFF 06/29/2024 Prothrombin Time INR 03/29/2025 [id number] 03/29/2025 Future Test Test Name Order Date UPPER GI ENDOSCOPY 06/29/2024 Insurance Providers Payer Name Payer Address Payer Phone Subscriber Number Group Number Insured Name Patient Relationship to Insured Coverage Start Date Coverage End Date MEDICARE OF [place] [address] [place] [address] [id number] [place] Self - patient is the insured MEDICAID OF [facility] [address] [place] [address] [id number] [place] Self - patient is the insured Medical (General) History Medical History History ICD Code GI bleed with gastric ulcer 07/12 Surgical History Surgery Date(Month/Year) HERNIA REPAIR BILATERAL AGE 4 Hospitalization History Reason Date(Month/Year) New years day hospitalized for a heart a ttack. 07/20/2024
[2025-03-29 19:47] VITALS: BP 127/67; PULSE 76; RESP 21; TEMP 36.7; O2SAT 99
--- NOTE | 2025-03-29 20:08 | PHA.MEDREC ---
Addendum entered by Tommy Mcallister, John 03/29/25 20:22: MEDREC CHECKED BY [facility] Original Note: Pharmacy Consult ? Medication Reconciliation Pharmacy has completed the medication reconciliation. Patient had a list of medications with him. Patient states he is not taking Digoxin 125 mcg. Patient confirm Amiodarone 200 mg daily. Patient had all his morning medications today.
[2025-03-29] MEDS: Dextrose 5 % and 0.45 % NaCl 1,000 ML 100 ML IVCONT (21:59)
[2025-03-29 22:06] VITALS: BP 112/62; PULSE 71; RESP 21; TEMP 36.9; O2SAT 96
--- NOTE | 2025-03-29 22:43 | PC.NURSE ---
Patient is alert and oriented x4, VSS. Patient denies any pain discomfort at this time, no s/s of apparent distress noted. Patient currently resting in stretcher bed with his eyes closed, RR 18, even chest wall rise and fall noted. D5 in 0.45% NaCL infusing at 100 mL/hr via 20 G IV line in R AC. Call caban within patient's reach, bennie of care ongoing.
[2025-03-30] VITALS (7 sets, daily range): BP systolic 102–142; BP diastolic 51–69; PULSE 56–73; RESP 16–20; TEMP 36.2–36.6; O2SAT 98–100; BMI 27.5
[2025-03-30 01:49] LABS: MANUAL DIFF FLAG NO
[2025-03-30 01:50] LABS: Hematocrit 30.3 % (42.0-52.0); Hemoglobin 10.2 g/dl (14.0-18.0); Imm Gran Abs Auto 0.19 X10*3/uL (0.00-0.03); Imm Gran Pct Auto 3.6 % (0.0-0.4); Lymphocytes Absolute Auto 1.2 X10*3/uL (1.2-4.9); Mean Corpuscular HGB Conc 33.7 g/dl (31.0-36.0); Mean Corpuscular Hemoglobin 32.7 pg (27.0-33.0); Mean Corpuscular Volume 97.1 fL (80.0-98.0); NRBC Abs Auto 0.000 X10*3/uL (0.0-0.012); NRBC Pct Auto 0.0 /100WBC (0.0-0.2); Platelet Count 107 X10*3/uL (160-400); Red Blood Count 3.12 X10*6/uL (4.60-5.80); White Blood Count 5.3 X10*3/uL (4.8-10.8)
[2025-03-30 04:40] LABS: MANUAL DIFF FLAG NO
[2025-03-30 04:47] LABS: Hematocrit 31.0 % (42.0-52.0); Hemoglobin 10.4 g/dl (14.0-18.0); Imm Gran Abs Auto 0.23 X10*3/uL (0.00-0.03); Imm Gran Pct Auto 4.3 % (0.0-0.4); Lymphocytes Absolute Auto 1.2 X10*3/uL (1.2-4.9); Mean Corpuscular HGB Conc 33.5 g/dl (31.0-36.0); Mean Corpuscular Hemoglobin 32.9 pg (27.0-33.0); Mean Corpuscular Volume 98.1 fL (80.0-98.0); NRBC Abs Auto 0.000 X10*3/uL (0.0-0.012); NRBC Pct Auto 0.0 /100WBC (0.0-0.2); Platelet Count 123 X10*3/uL (160-400); Red Blood Count 3.16 X10*6/uL (4.60-5.80); White Blood Count 5.3 X10*3/uL (4.8-10.8)
[2025-03-30 05:09] LABS: Alanine Aminotransferase 13 U/L (0-40); Albumin Level 3.3 g/dL (3.5-5.0); Alkaline Phosphatase 54 U/L (39-117); Anion Gap 13 (12-20); Aspartate Amino Transferase 20 U/L (5-37); Blood Urea Nitrogen 42 mg/dL (9-16); Calcium 8.1 mg/dL (8.4-10.2); Carbon Dioxide 25 mmol/L (22-29); Chloride 107 mmol/L (96-108); Creatinine Clr Calc Pharmacy 68.8; Estimated Glomerular Filt Rate > 60; Potassium 3.7 mmol/L (3.3-5.1); Sodium 141 mmol/L (135-145); Total Protein 5.5 g/dL (6.5-8.0)
--- NOTE | 2025-03-30 05:36 | P.HPHOSP_ITS ---
History of Present Illness Date of Service: 03/29/25 Chief Complaint: Coffee-ground emesis 79-year-old male with a past medical history of history, HLD, AFib-on Eliquis, arthritis, NSVT, CAD; clear to the hospital today with a chief complaint of dark-colored stools. On Thursday he reports having multiple dark colored stools. Also had an episode of coffee-ground emesis. Denies any abdominal pain. Denies any chest pain or palpitations. Denies any lightheadedness or dizziness. Denies any SOB or PAUL. Last dose of Eliquis was early in the morning -03/29/2025. Review of all other systems is negative except mentioned above ER course: Per ER team, patient's H&H was stable. Discussed with Dr. Nogueira-saturated clear liquid diet and will plan for endoscopy. [facility] Medical History Bilateral cataracts Hemorrhoids Daily consumption of alcohol Arthritis Iron deficiency anemia Gastric ulcer Atrial fibrillation with RVR Orthostasis NSVT (nonsustained ventricular tachycardia) Upper gastrointestinal bleed Surgical History H/O hemorrhoidectomy (11/04/24) Hx of hernia repair History of esophagogastroduodenoscopy (EGD) Social History Household Members: None Housing: Apartment Do you presently have visiting nurse or other home services: No Alcohol intake: current Alcohol intake frequency: 3 or more drinks per day Alcohol type: beer Patient Tobacco Use Status: Former Tobacco user Smoked in Last 30 Days: No Use of substances other than those prescribed or required for medical reasons: No Advance Directives: Yes Advance Directives on File: Yes Advance Directives Date on File: 06/22/24 Do you have a plan to hurt others: No Plan service: No Meds Allergies Allergy/AdvReac Type Severity Reaction Status Date / Time No Known Allergies Allergy Verified 03/29/25 12:05 Active Medications: Current Medications Acetaminophen (Acetaminophen 325 Mg Tablet) 650 mg PO Q6H PRN PRN Reason: Pain, Mild 1-3,fever,headache Amiodarone HCl (Amiodarone Hcl 200 Mg Tablet) 200 mg PO DAILY [facility] Calcium Carbonate (Calcium Carbonate 750 Mg Tab.Chew) 750 mg PO Q4H PRN PRN Reason: Heartburn Dextrose/Sodium Chloride (D51/2ns) 1,000 mls @ 100 mls/hr IVCONT .Q10H [facility] Last Admin: 03/29/25 21:59 Dose: 100 mls/hr Magnesium Hydroxide (Milk Of Magnesia 30 Ml Oral.Susp) 30 ml PO DAILY PRN PRN Reason: Constipation Melatonin (Melatonin 3 Mg Tablet) 6 mg PO BEDTIME PRN PRN Reason: Insomnia Pantoprazole Sodium (Pantoprazole Sodium 40 Mg/10 Ml Vial) 40 mg IVPUSH BID@0630,1630 [facility] Sodium Chloride (0.9 % Sodium Chloride Flush 3 Ml Syringe) 3 ml IVFLUSH QSHIFT [facility] Last Admin: 03/30/25 00:02 Dose: Not Given Home Medications ?Medication ?Instructions ?Recorded ?Confirmed ?Last Taken ?Type amiodarone 200 mg tablet 200 mg PO DAILY 03/29/2505/1303/29/25 History Physical Exam 2 Vital Signs and Narrative: Vital Signs: Last Vital Signs Temp 98.5 F 03/29/25 22:06 Pulse 62 03/30/25 01:46 Resp 19 03/30/25 01:46 BP 112/62 03/29/25 22:06 Pulse Ox 96 03/29/25 22:06 O2 Del Method Room Air 03/29/25 22:06 BMI result Body Mass Index 28.2 Gen: Appears be in no acute distress HEENT: NCAT, Moist mucosa. Pulmonary: Vesicular breath sounds, fair air entry CVS: Normal S1-S2 Abdomen: BS+, Soft, Nontender Extremities: Warm well perfused Neuro: Alert and awake. Results Labs 03/30/25 04:21 03/30/25 04:21 Labs: Laboratory Results - last 24 hr 03/29/25 03/29/25 03/29/25 12:10 17:02 19:12 MCV 95.6 MCH 33.4 H MCHC 35.0 RDW 13.1 Plt Count 151 L MPV 10.4 Immature Gran % (Auto) 2.6 H Neut % (Auto) 75.6 H Lymph % (Auto) 13.2 L Chase % (Auto) 7.4 Eos % (Auto) 0.7 Baso % (Auto) 0.5 Lymph # (Auto) 1.1 L Chase # (Auto) 0.6 Eos # (Auto) 0.1 Baso # (Auto) 0.0 Abs Immat Gran (auto) 0.22 H Absolute Neuts (auto) 6.4 Absolute Nucleated RBC 0.000 Nucleated RBC % (auto) 0.0 Hold Purple Top SEE NOTE PT 15.5 H INR 1.4 H Anion Gap 13 Estim Creat Clear Calc 65.5 Estimated GFR > 60 Random Glucose 100 Calcium 8.8 Magnesium 2.0 Total Bilirubin 1.2 H AST 24 ALT 17 Alkaline Phosphatase 68 Total Protein 6.5 Albumin 3.8 Lipase 69 Hold Yellow Top See Note Stool Occult Blood POSITIVE Blood Type A Positive Antibody Screen NEGATIVE 03/30/25 03/30/25 01:41 04:21 MCV 97.1 98.1 H MCH 32.7 32.9 MCHC 33.7 33.5 RDW 13.2 13.2 Plt Count 107 L D 123 L MPV 10.5 10.8 Immature Gran % (Auto) 3.6 H 4.3 H Neut % (Auto) 63.0 63.2 Lymph % (Auto) 22.7 21.8 Chase % (Auto) 8.8 8.6 Eos % (Auto) 1.3 1.3 Baso % (Auto) 0.6 0.8 Lymph # (Auto) 1.2 1.2 Chase # (Auto) 0.5 0.5 Eos # (Auto) 0.1 0.1 Baso # (Auto) 0.0 0.0 Abs Immat Gran (auto) 0.19 H 0.23 H Absolute Neuts (auto) 3.4 3.4 Absolute Nucleated RBC 0.000 0.000 Nucleated RBC % (auto) 0.0 0.0 Hold Purple Top PT INR Anion Gap 13 Estim Creat Clear Calc 68.8 Estimated GFR > 60 Random Glucose 104 Calcium 8.1 L D Magnesium Total Bilirubin 1.2 H AST 20 ALT 13 Alkaline Phosphatase 54 Total Protein 5.5 L Albumin 3.3 L Lipase Hold Yellow Top Stool Occult Blood Blood Type Antibody Screen Assessment and Plan (1) Acute upper GI bleed: Status: Acute Plan 79-year-old male with a past medical history of history, HLD, AFib-on Eliquis, arthritis, NSVT, CAD; clear to the hospital today with a chief complaint of dark-colored stools/coffee-ground emesis. GI bleed: H and H currently stable Serial H&H Clear liquid diet GI consult notified IV PPI AFib: Hold home Eliquis until cleared by Gastroenterology. Continue home amiodarone Hypertension: Metoprolol on hold for now. DVT prophylaxis: SCD boots Code status: Full code Quality Stroke Does the patient have a stroke diagnosis?: No VTE Prior VTE?: No VTE Risk Level:: Medical - moderate - high VTE Device Contraindication: N/A - Device Ordered VTE Drug Contraindication: Treatment Not Indicated
[2025-03-30] MEDS: Dextrose 5 % and 0.45 % NaCl 1,000 ML 100 ML IVCONT ×2 (08:11→18:27)
--- NOTE | 2025-03-30 08:58 | PM.EVENT ---
Event Note Date of Service: 03/30/25 Event Note: GI consult dictated Possible Nica-Howell tear. Doubt recurrent PUD given ppi use. Plan for EGD 03/31 after off AC. Gene is aware of risks and benefits and agrees to proceed. Continue ppi monitor HCT Time Spent With Patient Time: Total time managing care of this patient today ____ minutes.
--- NOTE | 2025-03-30 09:24 | CONS_ITS ---
DATE OF SERVICE: 03/30/2025 REFERRING PHYSICIAN: Dr. Ramachandran REASON FOR CONSULTATION: Upper GI bleeding. HISTORY OF PRESENT ILLNESS: Mr. Nick is a pleasant 79-year-old man, well known to me from prior evaluation. He was seen in the office on March 27 for followup of peptic ulcer disease. Endoscopy in September of this year had showed some scarring from previous peptic disease, and biopsy showed H pylori, and he was treated for this. Colonoscopy at the same time showed a 10 mm pedunculated polyp, which was a tubular adenoma. He has had hemorrhoids and required surgery and has been followed by Cardiology for atrial fibrillation that required cardioversion. He is on anticoagulation with Eliquis. After his office visit on Thursday, he went home and felt sick to his stomach. He began vomiting and had coffee-grounds emesis and black stools. He called the office and was advised to present to the emergency department. In the emergency department, he was evaluated by Dr. Ramachandran and had laboratory studies showing a hematocrit of 36.6, which was down from 44.2 three months ago. BUN was elevated with a normal creatinine consistent with upper GI bleeding. Rectal examination disclosed black stool that was Hemoccult positive. The patient reports no vomiting since his evaluation in the emergency department, but did pass 1 black stool by his report. This was not documented in the medical record. Hematocrit overnight have remained stable following some hydration with no evidence of active GI bleeding. His hematocrit this morning is 31, up slightly from 30.3 in the middle of the night. He has been treated with a proton pump inhibitor, and he has also been taking this as an outpatient. His Eliquis has been held. His last dose was yesterday morning, and platelet count is slightly low with an INR of 1.4. PAST MEDICAL HISTORY: 1. Peptic ulcer disease as above. 2. Atrial fibrillation. 3. Hyperlipidemia. 4. Nonsustained ventricular tachycardia. 5. Coronary artery disease, medical management. 6. Regular alcohol use. 7. Arthritis. 8. Iron deficiency anemia. CURRENT MEDICATIONS: Current medication list is reviewed in the chart. ALLERGIES: THERE ARE NONE REPORTED. FAMILY HISTORY: This is reviewed with the patient and is noncontributory. SOCIAL HISTORY: There is no current tobacco use. REVIEW OF SYSTEMS: SKIN: No pruritus. HEENT: Negative. CARDIOPULMONARY: He denies shortness of breath or chest pain. Currently, he has had some lightheadedness. GASTROINTESTINAL: As above. GENITOURINARY: Negative. NEUROPSYCHIATRIC: Negative. PHYSICAL EXAMINATION: GENERAL: Shows a pleasant male, lying comfortably in bed. VITAL SIGNS: Reviewed in the electronic medical record and are stable. SKIN: Anicteric. HEENT: Shows no scleral icterus. NECK: Without lymphadenopathy or thyromegaly. LUNGS: Clear. HEART: Shows a regular rate and rhythm. S1, S2. No murmur. ABDOMEN: Soft without focal masses or tenderness. Bowel sounds are present. No organomegaly is noted. EXTREMITIES: Without edema. LABORATORY DATA: Reviewed. IMPRESSION: Upper gastrointestinal bleeding. The differential diagnosis for this includes Nica-Howell tear, erosive esophagitis, recurrent peptic ulcer disease, Dieulafoy lesions, and AVMs. He states he has been compliant with proton pump inhibitor therapy as an outpatient, so peptic ulcer disease seems less likely. It appears that the most likely diagnosis in his case would be a Nica-Howell tear from vomiting, exacerbated by his chronic use of anticoagulants. I have recommended that he undergo upper endoscopy. This will be arranged tomorrow as his last dose of Eliquis was yesterday morning, and he would be better served by having the endoscopy after off this for at least 24 to 36 hours. He can have a regular diet today and nothing to eat or drink after midnight. I have discussed endoscopy with him including risks and benefits of the procedure today. He understands these and agrees to proceed. This will be arranged for tomorrow. Thanks for asking me to see him. I will follow him in the hospital with you. MD GUERITA Pearl/CHEYENNE / [phone]
--- NOTE | 2025-03-30 10:00 | HO.ANESPROP2 ---
Documented by User: Marian Merritt NP 03/30/25 10:04 HPI - Anesthesia Eval Consult details Narrative: 79yo M for Upper Endoscopy w/ Gold Probe Presented to ED 03/29/2025 reporting multiple dark colored stools. Also had an episode of coffee-ground emesis. Eliquis for afib - last dose 03/29/25 morning. Follows [facility]iology. Last office visit 02/2025 with plan for Holter d/t bradycardia. Extensive cardiac w/u in 2024 after afib dx: New finding of atrial fibrillation when he presented to [facility] 07/20/2024 with weakness and rectal bleeding. He was treated for heart rate control and started on Eliquis for anticoagulation. Chads Vasc score of 2. Last Echocardiogram 06/20/2024 showed EF 55-60%, basal inferior hypokinetic, mild pulmonary hypertension, left atrium severely dilated, right atrium likely dilated. A Holter monitor done 08/10/2024 for 3 days shows AFib, rate 69, pauses noted ranging 2.5-4 seconds. Nuclear stress test 08/10/2024 shows infarcted basal inferior wall without clear evidence of ischemia. He did have cardiac catheterization on 01/12/2025 showing lad minimal irregularities. For his symptom of shortness of breath with exertion he underwent cardioversion on 02/07/2025. [facility] Active Problems Active Problems: All Active Problems (Updated 02/02/25 @ 09:53 by Ros Cline NP-C) Acute upper GI bleed (Acute) Sinus bradycardia (Acute) S/P cardiac cath (Acute) Dyspnea on exertion (Acute) Preop cardiovascular exam (Acute) Abnormal stress test (Acute) Hospital discharge follow-up (Acute) Atrial fibrillation (Acute) Hemorrhoids (Acute) Past Medical History Medical History Bilateral cataracts Hemorrhoids Daily consumption of alcohol Arthritis Iron deficiency anemia Gastric ulcer Atrial fibrillation with RVR Orthostasis NSVT (nonsustained ventricular tachycardia) Upper gastrointestinal bleed Family History Family history of problems with anesthesia: No Surgical History Surgical History (Updated 03/31/25 @ 08:34 by Rachell Reyes RN) Hx of colonoscopy H/O hemorrhoidectomy (11/04/24) Hx of hernia repair History of esophagogastroduodenoscopy (EGD) History of Problems with Anesthesia: No Social History Social History Household Members: None Housing: Apartment Are you a primary career orientation teacher to a significant other at home: No Do you presently have visiting nurse or other home services: No Alcohol intake: current Alcohol intake frequency: 3 or more drinks per day Alcohol type: beer Patient Tobacco Use Status: Former Tobacco user Tobacco use type: Cigarette Smoked in Last 30 Days: No Use of substances other than those prescribed or required for medical reasons: No Have you been hit, kicked, punched, or otherwise hurt by someone within the past year? If so, by whom?: No Do you feel safe in your current relationship?: No Is there a partner from a previous relationship who is making you feel unsafe now?: No Are you made to feel afraid or neglected: No Are you DNR?: No Advance Directives: Yes Advance Directives on File: Yes Advance Directives Date on File: 06/22/24 Do you have a plan to hurt others: No Plan Recently lost weight without trying: No Nutrition Risks: No Nutritional Risk, Acute nausea or vomiting x1 week and Dental problems Poor oral hygiene: Yes service: No Meds Allergies Allergy/AdvReac Type Severity Reaction Status Date / Time No Known Allergies Allergy Verified 03/31/25 08:34 Active Medications: Current Medications Acetaminophen (Acetaminophen 325 Mg Tablet) 650 mg PO Q6H PRN PRN Reason: Pain, Mild 1-3,fever,headache Amiodarone HCl (Amiodarone Hcl 200 Mg Tablet) 200 mg PO DAILY [facility] Last Admin: 03/30/25 08:38 Dose: 200 mg Calcium Carbonate (Calcium Carbonate 750 Mg Tab.Chew) 750 mg PO Q4H PRN PRN Reason: Heartburn Dextrose/Sodium Chloride (D51/2ns) 1,000 mls @ 100 mls/hr IVCONT .Q10H [facility] Last Admin: 03/30/25 08:11 Dose: 100 mls/hr Magnesium Hydroxide (Milk Of Magnesia 30 Ml Oral.Susp) 30 ml PO DAILY PRN PRN Reason: Constipation Melatonin (Melatonin 3 Mg Tablet) 6 mg PO BEDTIME PRN PRN Reason: Insomnia Pantoprazole Sodium (Pantoprazole Sodium 40 Mg/10 Ml Vial) 40 mg IVPUSH BID@0630,1630 [facility] Last Admin: 03/30/25 06:05 Dose: 40 mg Sodium Chloride (0.9 % Sodium Chloride Flush 3 Ml Syringe) 3 ml IVFLUSH QSHIFT [facility] Last Admin: 03/30/25 07:15 Dose: Not Given Home Medications ?Medication ?Instructions ?Recorded ?Confirmed ?Last Taken ?Type amiodarone 200 mg tablet 200 mg PO DAILY 03/29/25 03/29/25 03/29/25 History Exam Height,Weight and Vital Signs: Height 5 ft 11 in Weight 91.626 kg Last Vital Signs Temp 97.8 F 03/30/25 07:31 Pulse 69 03/30/25 07:31 Resp 20 03/30/25 07:31 BP 118/69 03/30/25 07:31 Pulse Ox 100 03/30/25 07:31 O2 Del Method Room Air 03/30/25 07:31 Pertinent Lab Results Pertinent Lab Results: Laboratory Tests 03/29/25 03/29/25 03/29/25 12:10 17:02 19:12 WBC 8.4 RBC 3.83 L Hgb 12.8 L Hct 36.6 L MCV 95.6 MCH 33.4 H MCHC 35.0 RDW 13.1 Plt Count 151 L MPV 10.4 Immature Gran % (Auto) 2.6 H Neut % (Auto) 75.6 H Lymph % (Auto) 13.2 L Nobles % (Auto) 7.4 Eos % (Auto) 0.7 Baso % (Auto) 0.5 Lymph # (Auto) 1.1 L Nobles # (Auto) 0.6 Eos # (Auto) 0.1 Baso # (Auto) 0.0 Abs Immat Gran (auto) 0.22 H Absolute Neuts (auto) 6.4 Absolute Nucleated RBC 0.000 Nucleated RBC % (auto) 0.0 Hold Purple Top SEE NOTE PT 15.5 H INR 1.4 H Sodium 142 Potassium 4.1 Chloride 106 Carbon Dioxide 27 Anion Gap 13 BUN 48 H Creatinine 1.04 Estim Creat Clear Calc 65.5 Estimated GFR > 60 Random Glucose 100 Calcium 8.8 Magnesium 2.0 Total Bilirubin 1.2 H AST 24 ALT 17 Alkaline Phosphatase 68 Total Protein 6.5 Albumin 3.8 Lipase 69 Hold Yellow Top See Note Stool Occult Blood POSITIVE Blood Type A Positive Antibody Screen NEGATIVE 03/30/25 03/30/25 01:41 04:21 WBC 5.3 5.3 RBC 3.12 L 3.16 L Hgb 10.2 L D 10.4 L Hct 30.3 L 31.0 L MCV 97.1 98.1 H MCH 32.7 32.9 MCHC 33.7 33.5 RDW 13.2 13.2 Plt Count 107 L D 123 L MPV 10.5 10.8 Immature Gran % (Auto) 3.6 H 4.3 H Neut % (Auto) 63.0 63.2 Lymph % (Auto) 22.7 21.8 Nobles % (Auto) 8.8 8.6 Eos % (Auto) 1.3 1.3 Baso % (Auto) 0.6 0.8 Lymph # (Auto) 1.2 1.2 Nobles # (Auto) 0.5 0.5 Eos # (Auto) 0.1 0.1 Baso # (Auto) 0.0 0.0 Abs Immat Gran (auto) 0.19 H 0.23 H Absolute Neuts (auto) 3.4 3.4 Absolute Nucleated RBC 0.000 0.000 Nucleated RBC % (auto) 0.0 0.0 Hold Purple Top PT INR Sodium 141 Potassium 3.7 Chloride 107 Carbon Dioxide 25 Anion Gap 13 BUN 42 H Creatinine 0.99 Estim Creat Clear Calc 68.8 Estimated GFR > 60 Random Glucose 104 Calcium 8.1 L D Magnesium Total Bilirubin 1.2 H AST 20 ALT 13 Alkaline Phosphatase 54 Total Protein 5.5 L Albumin 3.3 L Lipase Hold Yellow Top Stool Occult Blood Blood Type Antibody Screen Narrative Narrative: EKG 03/29/25 Vent. Rate : 67 BPM Atrial Rate : 67 BPM P-R Int : 128 ms QRS Dur : 104 ms QT Int : 424 ms P-R-T Axes : 36 -26 -11 degrees QTcB Int : 448 ms Sinus rhythm with occasional Premature ventricular complexes Otherwise normal ECG When compared with ECG of 07-Feb-2025 14:53, Premature ventricular complexes are now Present Aberrant conduction is no longer Present Echocardiogram 06/20/2024 showed EF 55-60%, basal inferior hypokinetic, mild pulmonary hypertension, left atrium severely dilated, right atrium likely dilated. A Holter monitor done 08/10/2024 for 3 days shows AFib, rate 69, pauses noted ranging 2.5-4 seconds. Nuclear stress test 08/10/2024 shows infarcted basal inferior wall without clear evidence of ischemia. He did have cardiac catheterization on 01/12/2025 showing lad minimal irregularities. For his symptom of shortness of breath with exertion he underwent cardioversion on 02/07/2025. Assessment and Plan Assessment Anesthesia Assessment: Chart Reviewed Final Anesthetic Review Family History of Problems with Anesthesia: No History of Problems with Anesthesia: No Documented by User: Padmaja Carroll MD 03/31/25 08:40 [facility] Past Medical History Medical History Bilateral cataracts Hemorrhoids Daily consumption of alcohol Arthritis Iron deficiency anemia Gastric ulcer Atrial fibrillation with RVR Orthostasis NSVT (nonsustained ventricular tachycardia) Upper gastrointestinal bleed Surgical History Surgical History (Updated 03/31/25 @ 08:34 by Rachell Reyes RN) Hx of colonoscopy H/O hemorrhoidectomy (11/04/24) Hx of hernia repair History of esophagogastroduodenoscopy (EGD) Social History Social History Household Members: None Housing: Apartment Are you a primary career orientation teacher to a significant other at home: No Do you presently have visiting nurse or other home services: No Alcohol intake: current Alcohol intake frequency: 3 or more drinks per day Alcohol type: beer Patient Tobacco Use Status: Former Tobacco user Tobacco use type: Cigarette Smoked in Last 30 Days: No Use of substances other than those prescribed or required for medical reasons: No Have you been hit, kicked, punched, or otherwise hurt by someone within the past year? If so, by whom?: No Do you feel safe in your current relationship?: No Is there a partner from a previous relationship who is making you feel unsafe now?: No Are you made to feel afraid or neglected: No Are you DNR?: No Advance Directives: Yes Advance Directives on File: Yes Advance Directives Date on File: 06/22/24 Do you have a plan to hurt others: No Plan Recently lost weight without trying: No Nutrition Risks: No Nutritional Risk, Acute nausea or vomiting x1 week and Dental problems Poor oral hygiene: Yes service: No Meds Allergies Allergy/AdvReac Type Severity Reaction Status Date / Time No Known Allergies Allergy Verified 03/31/25 08:34 Home Medications ?Medication ?Instructions ?Recorded ?Confirmed ?Last Taken ?Type amiodarone 200 mg tablet 200 mg PO DAILY 03/29/25 03/29/25 03/29/25 History Exam Airway Mallampati Class: I (edentulous) TM Dist: >3cm Neck ROM: Full Heart: criss Lungs: cta Assessment and Plan Assessment Anesthesia Assessment: Anesthesia Plan Discussed Final Anesthetic Review NPO: Yes ASA Class: III Final Preanesthetic Review: No Changes in Pt Med Stat, Meds/Allgs Chart Reviewed and Consent Obtained/Reviewed Patient Risk: Intermediate Procedure Risk: Intermediate Anesthetic Plan Anesthetic Plan: MAC: Disposition: Standard PACU
--- NOTE | 2025-03-30 11:31 | MHC.CM.PN ---
Addendum entered by Bella Cross 03/30/25 11:37: PCP is Dr. Kermit Tabares Original Note: IMM 03/30/25, Pt. lives alone, he does not use home health services or DME. He did have services from [facility] back in , following a hospital stay. PCP is Dr. Carmen at [facility]. HCP is on file and confirmed, his dtr Belinda. Pt.'s brother will transport him home at [place]. DCP: home, self care. CM to follow for DC needs.
--- NOTE | 2025-03-30 11:53 | PC.NURSE ---
assumed care of patient at 0700, patient is awake and alert, resp even and unlabored. 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 VSS, patient has D5 1/2 NS running at 100ml/hr. plan of care on going, update given to daughter on the phone
[2025-03-31] VITALS (9 sets, daily range): BP systolic 87–142; BP diastolic 48–76; PULSE 55–76; RESP 16–20; TEMP 36.3–36.9; O2SAT 94–100
[2025-03-31] MEDS: Dextrose 5 % and 0.45 % NaCl 1,000 ML 100 ML IVCONT ×2 (02:46→14:59)
--- NOTE | 2025-03-31 08:54 | MHC.SHP ---
Pre-Procedural Eval Section A - 24 Hr Update-Section A only Date of Service: 03/31/25 The patient has been examined within 24 hours of the surgical procedure. The History & Physical has been completed within 30 days and I have reviewed it.: Yes Section B - Complete if H&P > 30 days Chief Complaint: Hematemesis Allergies: Allergies Allergy/AdvReac Type Severity Reaction Status Date / Time No Known Allergies Allergy Verified 03/31/25 08:34 Plan I have reviewed the history and physical and performed a pertinent physical examination on my patient. No changes have occurred unless specified. Time Spent With Patient Time: Total time managing care of this patient today ____ minutes.
--- NOTE | 2025-03-31 10:00 | PM.OP ---
Brief Operative Note Date of Service: 03/31/25 Pre-op diagnosis: gi bleed Post-op diagnosis: same Procedure: EGD Surgeon: Randolph Nogueira MD Anesthesia: MAC Was an Manager Product Marketing used for this Procedure?: No Estimated blood loss (mL): 2 Pathology: other Condition: stable Disposition: PACU
--- NOTE | 2025-03-31 10:03 | PM.EVENT ---
Event Note Date of Service: 03/31/25 Event Note: EGD nonbleeding 15 mm antral ulcer, biopsied f/u bx results d/c anticoagulation for as long as possible bid ppi Time Spent With Patient Time: Total time managing care of this patient today ____ minutes.
--- NOTE | 2025-03-31 10:54 | OP_ITS ---
DATE OF SERVICE: 03/31/2025 SURGEON: Randolph Nogueira MD INDICATIONS: Upper GI bleeding. PREOPERATIVE DIAGNOSIS: POSTOPERATIVE DIAGNOSIS: PROCEDURE PERFORMED: Upper endoscopy with biopsy. ESTIMATED BLOOD LOSS: COMPLICATIONS: ANESTHESIA: Monitored anesthesia care. ASSISTANTS: SPECIMENS: DESCRIPTION OF PROCEDURE: A history and physical was performed. The risks and benefits of the procedure were explained to the patient. Informed consent was obtained. The patient was placed in the left lateral decubitus position. The Olympus video gastroscope was introduced into the esophagus, stomach, and duodenum. Examination was performed. The scope was removed. He tolerated the procedure well and was returned to the recovery area in stable condition. FINDINGS: Esophagus: The esophagus was normal. There was no esophagitis. There was a small sliding hiatal hernia. Stomach: The stomach showed an antral ulcer measuring approximately 15 mm with some adherent food or possible clot. There was no active bleeding. The ulcer was irrigated and no bleeding ensued. Biopsies were obtained from the margin of the ulcer. Duodenum: The bulb and 2nd portion were normal. IMPRESSION: Antral ulcer. RECOMMENDATION: 1. Follow up the biopsy results. 2. Avoid anticoagulation as long as possible. 3. Repeat endoscopy will be arranged in 3 months for followup of the ulcer. MD GUERITA Pearl/FAUSTOL / [id number]
--- NOTE | 2025-03-31 11:08 | HO.PM.IMPN ---
Subjective Subjective Date of Service: 03/31/25 Interval History: no bleeding EGD this morning: nonbleeding 15 mm antral ulcer, biopsied Physical Exam Exam: Exam: General: AO X 3, no acute distress Resp: CTA bilateral CVS: S1,S2,RRR GI: +BS, NT, no distention Skin: No rash Neuro: motor grossly intact Psych: appropriate affect Vital Signs: Vital Signs: Last Vital Signs Temp 98.0 F 03/31/25 10:07 Pulse 76 03/31/25 10:07 Resp 16 03/31/25 10:07 BP 106/58 L 03/31/25 10:07 Pulse Ox 96 03/31/25 10:07 O2 Del Method Room Air 03/31/25 10:07 BMI result Body Mass Index 27.5 Appearing in no acute distress lung sounds are clear to auscultation heart regular rate rhythm, clear S1, S2 positive bowel sounds, abdomen is soft, nontender neuro patient is alert x3, no focal deficits Objective Data Active Medications Acetaminophen (Acetaminophen 325 Mg Tablet) 650 mg PO Q6H PRN PRN Reason: Pain, Mild 1-3,fever,headache Amiodarone HCl (Amiodarone Hcl 200 Mg Tablet) 200 mg PO DAILY COUNTS INCLUDE 234 BEDS AT THE [facility] Last Admin: 03/31/25 10:38 Dose: 200 mg Documented By: MARY Calcium Carbonate (Calcium Carbonate 750 Mg Tab.Chew) 750 mg PO Q4H PRN PRN Reason: Heartburn Dextrose/Sodium Chloride (D51/2ns) 1,000 mls @ 100 mls/hr IVCONT .Q10H COUNTS INCLUDE 234 BEDS AT THE [facility] Last Admin: 03/31/25 02:46 Dose: 100 mls/hr Documented By: SAIGE Magnesium Hydroxide (Milk Of Magnesia 30 Ml Oral.Susp) 30 ml PO DAILY PRN PRN Reason: Constipation Melatonin (Melatonin 3 Mg Tablet) 6 mg PO BEDTIME PRN PRN Reason: Insomnia Pantoprazole Sodium (Pantoprazole Sodium 40 Mg/10 Ml Vial) 40 mg IVPUSH BID@0630,1630 COUNTS INCLUDE 234 BEDS AT THE [facility] Last Admin: 03/31/25 05:46 Dose: 40 mg Documented By: SAIGE Sodium Chloride (0.9 % Sodium Chloride Flush 3 Ml Syringe) 3 ml IVFLUSH QSHIFT COUNTS INCLUDE 234 BEDS AT THE [facility] Last Admin: 03/31/25 09:51 Dose: Not Given Documented By: MARY Non-Admin Reason: IV Running Labs 03/30/25 04:21 03/30/25 04:21 Labs: Laboratory Results - last 24 hr 07/25/24 06:58 MCV 90.0 MCH 30.1 MCHC 33.4 RDW 13.4 Plt Count 132 L MPV 10.3 Absolute Nucleated RBC 0.000 Nucleated RBC % (auto) 0.0 Anion Gap 10 L Estim Creat Clear Calc 74.7 Estimated GFR > 60 Random Glucose 85 Calcium 8.0 L B-Natriuretic Peptide 781 H Assessment and Plan (1) Upper gastrointestinal bleed: Status: Inactive Plan 79-year-old male with a past medical history of history, HLD, AFib-on Eliquis, arthritis, NSVT, CAD; clear to the hospital today with a chief complaint of dark-colored stools/coffee-ground emesis. GI bleed. H and H currently stable EGD 03/31 nonbleeding 15 mm antral ulcer, biopsied recommendation d/c anticoagulation for as long as possible bid ppi advance dit AFib: Hold home Eliquis until cleared by Gastroenterology. Continue home amiodarone Hypertension: Metoprolol on hold for now. DVT prophylaxis: SCD boots Code status: Full code Quality Stroke Does the patient have a stroke diagnosis?: No VTE Prior VTE?: No VTE Risk Level:: Medical - moderate - high VTE Device Contraindication: N/A - Device Ordered VTE Drug Contraindication: Treatment Not Indicated
[2025-03-31 11:46] LABS: Hematocrit 28.4 % (42.0-52.0); Hemoglobin 10.1 g/dl (14.0-18.0); Mean Corpuscular HGB Conc 35.6 g/dl (31.0-36.0); Mean Corpuscular Hemoglobin 33.4 pg (27.0-33.0); Mean Corpuscular Volume 94.0 fL (80.0-98.0); NRBC Abs Auto 0.000 X10*3/uL (0.0-0.012); NRBC Pct Auto 0.0 /100WBC (0.0-0.2); Platelet Count 118 X10*3/uL (160-400); Red Blood Count 3.02 X10*6/uL (4.60-5.80); White Blood Count 4.7 X10*3/uL (4.8-10.8)
[2025-03-31] MEDS: 0.9 % Sodium Chloride Flush 3 ML SYRINGE IVFLUSH ×2 (17:28→20:03)
--- NOTE | 2025-03-31 23:19 | PC.NURSE ---
I assumed care of the patient at the shift change at 1900, pt calm and cooperative, VSS, pt ambulate to the bathroom and refuses bed alarm.
[2025-04-01 04:00] VITALS: BP 134/63; PULSE 63; RESP 20; TEMP 36.2; O2SAT 100
[2025-04-01 07:12] VITALS: BP 133/63; PULSE 62; RESP 16; TEMP 36.5; O2SAT 98
[2025-04-01] MEDS: 0.9 % Sodium Chloride Flush 3 ML SYRINGE IVFLUSH (08:22)
[2025-04-01 11:16] VITALS: BP 148/67; PULSE 71; RESP 20; TEMP 36.7; O2SAT 98
--- NOTE | 2025-04-01 11:44 | PM.DS ---
DS: Providers Provider Date of Service: 04/01/25 Date of admission: 03/29/25 18:29 Date of discharge: 04/01/25 Primary care physician: Kermit Tabares MD Consults: 03/29/25 20:51 Consult to Gastroenterology Routine Consulting Provider: [facility] Reason for consultation: GI bleed Has provider been notified: No DS: Diagnosis Discharge Diagnosis (1) Upper gastrointestinal bleed: Status: Inactive DS: Summary Hospital Course Hospital Course: admission hpi Chief Complaint: Coffee-ground emesis 79-year-old male with a past medical history of history, HLD, AFib-on Eliquis, arthritis, NSVT, CAD; clear to the hospital today with a chief complaint of dark-colored stools. On Thursday he reports having multiple dark colored stools. Also had an episode of coffee-ground emesis. Denies any abdominal pain. Denies any chest pain or palpitations. Denies any lightheadedness or dizziness. Denies any SOB or PAUL. Last dose of Eliquis was early in the morning -03/29/2025. Review of all other systems is negative except mentioned above ER course: Per ER team, patient's H&H was stable. Discussed with Dr. Nogueira-saturated clear liquid diet and will plan for endoscopy. Hospital course: 79-year-old male with a past medical history of history, HLD, AFib-on Eliquis, arthritis, NSVT, CAD; clear to the hospital today with a chief complaint of dark-colored stools/coffee-ground emesis without signficant drop in H/H. He had EGD by Dr. Nogueira on 03/31 with the following finding and recommendation nonbleeding 15 mm antral ulcer, biopsied recommendation d/c anticoagulation for as long as possible bid ppi Prescribing prilosec 20 bid, and holding Eliquis for 2 weeks, and outpatient follow up with PCP, he understand increased risk of stroke in the abscence of anticoagulation AFib: Hold home Eliquis until cleared by Gastroenterology. Continue home amiodarone Hypertension: resume home meds Time Attestation Discharge Coordination Time (in mins): 40 Quality: Safe Use of Opioids Does Pt have an Active Cancer Diagnosis on the Problem List?: No Quality: Stroke Does the patient have a stroke diagnosis?: No Physical Exam Vital Signs: Vital Signs: Last Vital Signs Temp 98.1 F 04/01/25 11:16 Pulse 71 04/01/25 11:16 Resp 20 04/01/25 11:16 BP 148/67 H 04/01/25 11:16 Pulse Ox 98 04/01/25 11:16 O2 Del Method Room Air 04/01/25 11:16 BMI result Body Mass Index 27.5 DS: Data Data Completed and Pending Completed studies during hospitalization [Text1]: Procedures Excision of Stomach, Pylorus, Via Natural or Artificial Opening Endoscopic, Diagnostic (06/17/24) Transfusion of Nonautologous Red Blood Cells into Peripheral Vein, Percutaneous Approach (06/17/24) Pending studies at discharge: Pending at discharge 03/31/25 09:52 Surgical [PTH] Routine Labs on day of discharge: Laboratory Results - last 24 hr 03/31/25 11:39 WBC 4.7 L RBC 3.02 L Hgb 10.1 L Hct 28.4 L MCV 94.0 MCH 33.4 H MCHC 35.6 RDW 12.9 Plt Count 118 L MPV 10.4 Absolute Nucleated RBC 0.000 Nucleated RBC % (auto) 0.0 Discharge Plan Discharge Anticipated Discharge Date/Time: 04/01/25 11:40 Patient Disposition: Home, Self-Care Discharge Diagnosis: Upper GI bleeding, acute blood loss anemia Referrals: Kermit Rangel MD [Primary Care Provider, Medical] - 1 Week Discharge Medications: New omeprazole magnesium [Prilosec OTC] 20 mg tablet,delayed release (DR/EC) 20 mg PO BID Qty: 180 0RF Continued (DME) [facility] See Rx Instructions .ROUTE .MEDSUPPLY Qty: 12 0RF Rx Instructions: As directed amiodarone 200 mg tablet 200 mg PO DAILY metoprolol tartrate 50 mg tablet 50 mg PO BID Qty: 180 1RF Rx Instructions: dose reduced - does not need refill at this time Held Eliquis 5 mg tablet 5 mg PO BID Qty: 60 5RF Hold Instructions: Resume on 04/15/25. Discharge Orders: Discharge Order (Routine); Ordered 04/01/25 Ordered By: Denver Glover Diet: Advance to usual diet Activity on Discharge: As tolerated Stand Alone Forms: Patient Portal Discharge page Print Language: Danish Care Plan Goals: recovery from anemia Health Concerns: stomach ulcer anemia Plan of Treatment: stop taking eliquis for 2 weeks do not take motrin or aspirin or over the counter pain medications, check with your pharmacist follow up with your doctor in 2 weeks, follow up with Dr. Nogueira on biopsy result Assessment: see above
--- NOTE | 2025-04-01 12:01 | MHC.CM.PN ---
PT TO [place] HOME TODAY VIA FAMILY TRANSPORT
--- NOTE | 2025-04-02 20:30 | P.CDIM_ITS ---
PROVIDER RESPONSE TEXT: To clarify, the appropriate diagnosis supported by the clinical indicators: Acute QUERY TEXT: PHYSICIAN'S DOCUMENTATION REQUEST Date of Query: 03/31/2025 01:46 PM EDT Patient Name: Geovanni Nick Admit Date: 03/29/2025 Dear Denver Glover MD, A review of the medical record indicates additional documentation may be needed. Please review below and update the documentation accordingly. Clinical Indicators: EGD done 03/31/25 nonbleeding antral ulcer, biopsied BID PPI Clarify which of the following accurately represents the acuity of the gastric ulcer . Possible options might include: Acute Acute on chronic Compensated Chronic stable condition Remission Other (explain) Clinically unable to determine (explain) Thank you, Pauline Pruitt RN Use of terms such as suspected, likely, concern for, or probable (associated with a specific diagnosis that is being evaluated, monitored, or treated as if it exists) are acceptable and can be coded in the inpatient setting, when documented at the time of discharge. Please use your independent medical judgment in providing your response. THIS QUERY IS PART OF THE PERMANENT MEDICAL RECORD
== END 2025-04-01 13:31 | disposition home or self-care (01) | DRG 378 ==
LOC: HO.ED 17:06 → HO.EDOVER 18:39 → HO.IMC 03-30 15:28
PROVIDERS: Hospitalist; Internal Medicine Gastroenterology; Physician Assistant; Physician Assistant Medical; Admitting Provider Internal Medicine; Emergency Provider Student in an Organized Health Care Education/Training Program; PCP Internal Medicine; Visit Provider Internal Medicine
PROC: 0DB78ZX Excision of Stomach, Pylorus, Via Natural or Artificial Opening Endoscopic, Diagnostic (ICD-10-PCS; principal; 2025-03-31 13:30)
DX: K25.0 Acute gastric ulcer with hemorrhage (principal); D62 Acute posthemorrhagic anemia; K44.9 Diaphragmatic hernia without obstruction or gangrene; I25.10 Atherosclerotic heart disease of native coronary artery without angina pectoris; I48.91 Unspecified atrial fibrillation; I10 Essential (primary) hypertension; Z87.891 Personal history of nicotine dependence; Z79.01 Long term (current) use of anticoagulants; Z79.899 Other long term (current) drug therapy
CPT/HCPCS: 36415; 80053; 82272; 83690; 83735; 85025; 85027; 85610; 86850; 86900; 86901; 88305; 88313; 88342; 93005; 99285; J2003; J2470; J2704

== ENCOUNTER → 2025-03-29 16:42 | Outpatient (BNV) | payer MEDICARE, MEDICAID, SELFPAY | PROVIDERS: Admitting Provider Internal Medicine; Emergency Provider Student in an Organized Health Care Education/Training Program; PCP Internal Medicine Gastroenterology; Visit Provider Internal Medicine Cardiovascular Disease | DX: I49.3 Ventricular premature depolarization (principal) | CPT/HCPCS: 93010 ==

== ENCOUNTER → 2025-03-29 18:29 | Outpatient (BNV) | payer MEDICARE, MEDICAID, SELFPAY | PROVIDERS: Admitting Provider Internal Medicine; Emergency Provider Student in an Organized Health Care Education/Training Program; PCP Internal Medicine; Visit Provider Internal Medicine | DX: K92.2 Gastrointestinal hemorrhage, unspecified (principal) | CPT/HCPCS: 99223; 99232; 99239 ==

== ENCOUNTER 2025-06-02 09:22 | Outpatient (AMB) | payer MEDICARE, SELFPAY ==
--- OUTSIDE RECORDS SUMMARY | 2024-08-26 05:00 | XMS_ITS ---
Author Organization [facility] Address [address] [place] [address] Care Team Providers Care Lock Tender Name Role Phone Cam acosta, Kermit Primary Care Prov ider Chip Nogueira Jr, Randolph Saunders REASON FOR VISIT acute gastric ulcer w/ hemorrh Encounters Encounter Location Date Provider Diagnosis [facility] [address] [place] [id number] 08/26/2024 Randolph Nogueira Jr Plan Of Treatment Next Appt Details Provider Name:Randolph wilkerson Jr, 06/20/2025 09:10:00 AM, [address] [place] [address], [id number], Provider Name:Ralph Howell , 08/17/2025 09:20:00 AM, [address] [place] [address], [address], [place], [address], Progress Notes * ТАТЬЯНА KIRKLAND LDOB:1944 (79 yo M)Acc No.[id number]:08/26/2024 EGD and COL/MAC Patient: ТАТЬЯНА NAPOLES Provider: Blanca Nogueira MD :1945 A ge:79 Y S ex:Male Date:08/26/2024 Address:[address] [place] [address] [address], [id number] Pcp:Kermit porter md Subjective: * Chief Complaints: * 1 . Acute gastric ulcer w/ hemorrh. * Medical History: Objective: * Vitals: Assessment: Plan: * Treatment: * * The named appointment provid er may or may not be the originator of this progress note, and it is not deemed complete until electronically signed by the appointment provider. Sign off status: Pending * Provider: Blanca Nogueira MD Date: 0 08/26/2024 Generated for Kim villasenor/Princess/Kanitting on: 1 08/02/2024 10:13 AM EST
--- OUTSIDE RECORDS SUMMARY | 2025-03-31 08:30 | XMS_ITS ---
Author Organization [facility] Address [address] [place] [address] Care Team Providers Care Application Support Intern Name Role Phone Cam acosta, Kermit Primary Care Prov ider Chip Nogueira Jr, Randolph Saunders REASON FOR VISIT GI bleed Encounters Encounter Location Date Provider Diagnosis [facility] [place] [address] [place] [id number] 03/31/2025 Randolph Nogueira Jr Plan Of Treatment Next Appt Details Provider Name:Randolph wilkerson Jr, 06/20/2025 09:10:00 AM, [address] [place] [address], [phone], Provider Name:Ralph Orlando Howell , 08/17/2025 09:20:00 AM, [address] [place] [address], [address], [place], [phone], Progress Notes * ТАТЬЯНА KIRKLAND LDOB:1944 (79 yo M)Acc No.[id number]:03/31/2025 EGD/MAC Patient: ТАТЬЯНА NAPOLES Provider: Blanca Nogueira MD :1945 A ge:79 Y S ex:Male Date:03/31/2025 Address:[address] [place] [address] [address], [id number] Pcp:Kermit porter md Subjective: * Chief Complaints: * 1 . GI bleed. * Medical History: Objective: * Vitals: Assessment: Plan: * Treatment: * * The named appointment provid er may or may not be the originator of this progress note, and it is not deemed complete until electronically signed by the appointment provider. Sign off status: Pending * Provider: Blanca Nogueira MD Date: 0 03/31/2025 Generated for Kim villasenor/Princess/Rod on: 1 08/02/2024 10:14 AM EST
--- NOTE | 2025-06-02 09:51 | MHC.OFFVIS ---
Vital Signs 06/02/25 09:55 Height 5 ft 11 in Weight 212 lb 1.355 oz BMI 29.6 BP 130/60 Blood Pressure Location Lt brachial Position Sitting Pulse 47 L Pulse Source Monitor Intake Visit Reasons: 3 month f/up holter Intake Note: 3 mth f/up- holter Director Of Orthopedics Required: No Accompanied by: Self / Same As Patient Allergies No Known Allergies Allergy (Verified 03/31/25 08:34) Medication List - Last Reconciled 06/02/25 by Ros Cline NP-C amiodarone 200 mg PO DAILY apixaban (Eliquis) 5 mg PO BID Held on 04/01/25. Instructions: Resume on 04/15/25. compr.stocking,knee,long,small (T.E.D. Knee [facility] As directed metoprolol tartrate 50 mg PO BID omeprazole magnesium (Prilosec OTC) 20 mg PO BID HPI HPI 3 month f/up holter: Details: Geovanni is an 79-year-old male with past medical history of daily alcohol use, knee arthritis, prior gastric ulcer, paroxysmal atrial fibrillation on Eliquis for anticoagulation who presents for follow-up. Today he reports that he has been feeling very well overall. He has no concerning symptoms. He is denying chest discomfort, shortness of breath, lightheadedness, fatigue, leg edema. He reports good activity tolerance. No bleeding issues reported. Taking all meds as directed. He reports that he is having an upper endoscopy next month as follow-up from his prior ulcer. [facility] Medical History Atrial fibrillation Bilateral cataracts Hemorrhoids Daily consumption of alcohol Arthritis Iron deficiency anemia Gastric ulcer Atrial fibrillation with RVR Orthostasis NSVT (nonsustained ventricular tachycardia) Upper gastrointestinal bleed Surgical History Hx of colonoscopy H/O hemorrhoidectomy (11/04/24) Hx of hernia repair History of esophagogastroduodenoscopy (EGD) Social History Household Members: None Housing: Apartment Are you a primary tire care manager to a significant other at home: No Do you presently have visiting nurse or other home services: No Alcohol intake: current Alcohol intake frequency: 3 or more drinks per day Alcohol type: beer Patient Tobacco Use Status: Former Tobacco user Tobacco use type: Cigarette Advance Directives Date on File: 06/22/24 service: No Review of Systems Const All systems reviewed & are unremarkable except as noted in HPI and below Denies chills, Denies fatigue, Denies fever(s), Denies frequent falls, Denies weakness, Denies weight gain and Denies weight loss ENT Denies dizziness Card Denies chest pain, Denies leg edema, Denies lightheadedness, Denies palpitations, Denies dyspnea and Denies dyspnea on exertion Resp Denies cough, Denies dyspnea and Denies dyspnea on exertion GI Denies hematochezia Musc Denies abnormal gait, Denies muscle weakness, Denies numbness, Denies radiating pain into limb and Denies tingling Neuro Denies abnormal gait, Denies dizziness, Denies frequent falls, Denies numbness, Denies tingling and Denies weakness Endo Denies fatigue and Denies palpitations Physical Exam Vital Signs: Last Vital Signs Pulse 47 L 06/02/25 09:55 BP 130/60 06/02/25 09:55 BMI result Body Mass Index 29.6 Const General: cooperative, healthy appearing, comfortable and no acute distress Orientation/consciousness: patient oriented x3 Neck Neck: Yes normal visual inspection Resp Effort & Inspection: normal respiratory effort Auscultation: clear to auscultation bilaterally, no rales, no rhonchi and no wheezes Cardio Jugular venous distension: no JVD Rate: bradycardic Rhythm: regular rhythm Heart sounds: S1 normal heart sound present, S2 normal heart sound present, no gallops, no murmurs and no rubs Neuro General: patient oriented x3 Extrem General: Yes normal to inspection, No no pedal edema and No calf tenderness Psych Appearance: grossly normal Mental Status: mental status grossly normal Speech and movement: Normal speech and movement present Office Procedures EKG Details: Today, read by me, sinus bradycardia, right axis, T-wave abnormality inferiorly, rate 47, QTC 423 milliseconds [id number], Complete Assessment & Plan Assessment & Plan (1) Atrial fibrillation: Code(s): I48.91 - Unspecified atrial fibrillation Category: Medical Plan: New finding of atrial fibrillation when he presented to [facility] 07/20/2024 with weakness and rectal bleeding. He was initially treated with heart rate control and put on anticoagulation. Holter monitor done 08/10/2024 for 3 days shows AFib, rate 69, pauses noted ranging 2.5-4 seconds. Echocardiogram 06/20/2024 showed EF 55-60%, basal inferior hypokinetic, mild pulmonary hypertension, left atrium severely dilated, right atrium likely dilated. Nuclear stress test 08/10/2024 shows infarcted basal inferior wall without clear evidence of ischemia. He did have cardiac catheterization on 01/12/2025 showing lad minimal irregularities. -he did undergo cardioversion on 02/07/2025 and was put on Multaq. He has maintained sinus rhythm since then. A Holter done 03/14/2025 showed sinus Aldair, average 52 beats per minute, frequent PVCs 2.5% with short NSVT runs, longest 16 beats. EKG today showing sinus bradycardia, rate 47, asymptomatic. Currently feeling very well. We discussed reducing metoprolol but he would like to leave his meds as they are. Continue metoprolol and amiodarone for rate and rhythm control. Continue Eliquis for anticoagulation. Cardiology follow-up 4 months, sooner if needed. (2) S/P cardiac cath: Comment: 01/12/2025 lad minimal irregularities Code(s): Z98.890 - Other specified postprocedural states Category: Surgical Plan: As above (3) NSVT (nonsustained ventricular tachycardia): Comment: noted during admission for upper GI bleed Code(s): I47.29 - Other ventricular tachycardia Category: Medical Plan: During June admission he was noted to have NSVT episode on tele monitoring. Recent Holter shows brief NSVT, longest 16 beats. Echo shows normal EF. Catheterization is showing no significant coronary artery disease. He is on amiodarone and metoprolol. (4) Sinus bradycardia: Code(s): R00.1 - Bradycardia, unspecified Category: Medical Plan: Sinus aldair noted on EKG today, asymptomatic. Holter showing average heart rate 52 beats per minute, frequent sinus bradycardia 85% of the time heart rate less than 60. He is tolerating this without symptoms. He is still having frequent ventricular ectopy. Patient declines medication change. Plan I discussed with the patient the current status of his atrial fibrillation and the importance of continuing his medications, including amiodarone and Eliquis. We reviewed the potential need to adjust his metoprolol dosage due to sinus bradycardia. I also explained the plan for a follow-up endoscopy to ensure the gastric ulcer is not actively bleeding. The patient was advised to follow up with cardiology in four months or sooner if symptoms change. Patient Instructions: - Continue taking all prescribed medications as directed. - Monitor for any new symptoms such as dizziness, palpitations, or bleeding. - Attend the scheduled follow-up endoscopy to check the status of the gastric ulcer. - Follow up with cardiology in four months or sooner if needed. Patient was informed and verbally consented to the use of an ambient scribe for clinic note documentation during this visit. Visit time spent on chart review, interview, assessment, orders, documentation. Coding Level of Care Code Est Pt Level 4 (32050) Complex EM visit Add On G2211 Diagnoses Atrial fibrillation I48.91 S/P cardiac cath Z98.890 NSVT (nonsustained ventricular tachycardia) I47.29 Sinus bradycardia R00.1 CPT Codes EKG - CPT: [id number], Complete ([id number]) Time Spent (min) 26
[2025-06-02 09:55] VITALS: BP 130/60; PULSE 47; BMI 29.6
--- OUTSIDE RECORDS SUMMARY | 2025-06-02 10:13 | XMS_ITS | Clinical Summary ---
Author Organization [employer] Address [address] [facility] 7t [place] [address] Care Team Providers Care Sprinkling System Installer Name Role Phone Kermit Rangel MD Primary [...] appearance, will refer to dermatology for evaluation Family History Medical History Relation Name Comments [...] 75+ series) 2019 COVID-19 Vaccine ( - 2024-2 6 season) 2025 2021, 09/27/2020, [...] Free T4 2.41 0.32 - 4.0 uIU/mL [facility] 03/14/2025 8:29 AM EDT 03/14/2025 8:29 AM EDT us Generic External Data Provider LAB BLOOD ORDERAB LES Final Result [facility] [address] [place] [phone] * (ABNORMAL) Hepatic Function Panel (03/14/2025 8:29 AM EDT) Bilirubin, Total 1.9(H) 0.0 - 1.0 mg/dL [facility] Comment:Slight Icterus. Bilirubin, Direct 0.5 0.0 - 0.5 mg/dL [facility] Comment:Slight Icterus. Aspartate Amino Transferase 30 5 - 37 U/L [facility] Alanine Aminotransferase 22 0 - 40 U/L [facility] Total Protein 6.7 6.5 - 8.0 g/dL [facility] Albumin Level 4.0 3.5 - 5.0 g/dL [facility] Alkaline Phosphatase 66 39 - 117 U/L [facility] 03/14/2025 8:29 AM EDT 03/14/2025 8:29 AM EDT Generic External Data Provider LAB BLOOD ORDERAB LES Final Result Performing Organization Address [facility] Co de Phone Number [facility] [address] [place] [phone] * Lipid Panel, Standard (09/13/2024 7:22 AM EST) Triglycerides 90 <150 mg/dL [facility] Comment:Desirable Triglyceri de: less than 150 mg/dLBorderline High Triglyceride 150-199 mg/dLHigh Triglyceride: 200-499 mg/dLVery High Triglyceride: greater than or equal to 5OO mg/dL Cholesterol 134 <200 mg/dL [facility] Comment:Desirable Cholestero l: less than 200 mg/dLBorderline High Cholesterol: 200-239 mg/dLHigh Cholesterol: greater than 239 mg/dL LDL Cholesterol Calculated 66 <100 mg/dL [facility] Comment:Desirable LDL: less than 100 mg/dLNear Optimal/Above Optimal LDL: 110- 129 mg/dLBorderline High LDL: 130-159 mg/dLHigh LDL: 160-189 mg/dLVery High LDL: greater than or equal to 190 mg/dL HDL Cholesterol 50 >40 mg/dL [facility] Comment:Desirable HDL: great er than 40 mg/dL Note: This HDL assay may give artificially low results in patients with liver disease. 09/13/2024 7:22 AM EST 09/13/2024 7:22 AM EST us Generic External Data Provider LAB BLOOD ORDERAB LES Final Result Performing Organization Address [facility]/ZIP Co de Phone Number [facility] [address] [place] [phone] from Last 3 Months or Most Recently Relevant to Health Maintenance Insurance MEDICARE Advance Directives Documents on File Type Date Recorded Patient Steerer Expl anation Advance Directives and Livin g Will 01/09/2025 3:59 PM HCP Care Teams Sprinkling System Installer Relationship Specialty Start Date End Date Kermit Rangel MD [address] [place] [phone] PCP - General Internal Medicine 07/11/24 Glenn TOTH 07/28/24
--- OUTSIDE RECORDS SUMMARY | 2025-06-02 10:14 | XMS_ITS | Encounter Summary ---
Author Organization [employer] Address [address] [facility] 7t [place] [address] Care Team Providers Care Warehouse Operator Name Role Phone Kermit Rangel MD Primary Care Prov ider Encounter Details Date Type Department Care Team (Late st Contact Info) Description 07/11/2024 Telephone [facility] MEDICINE [address] [place] [address] Kermit Rangel MD [address] [place] [address] Social History Tobacco Use Types Packs/Day Years [...] documented as of this encounter Care Teams Warehouse Operator Relationship Specialty Start Date End Date Kermit Rangel MD [address] [place] [phone] PCP - General Internal Medicine 07/11/24 Glenn TOTH 07/28/24 documented as of this encounter
--- OUTSIDE RECORDS SUMMARY | 2025-06-02 10:14 | XMS_ITS | Data Portability ---
Author Organization [place] [facility] Address [address] [facility] [address] [place] [address] Assessment Encounter Date Assessment Date Assessment LastModified [...] 12/14/2024 12/14/2024 Follow up with referring provider. [email or web address] Not available 12/14/2024 14:49:00 12/14/2024 12/14/2024 79yo male presents for evaluation of the ears. Left-sided cerumen impaction removed with suction. TMs and EACs are normal to inspection. 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 Patient is medically cleared for amplification. Provided [facility] health provider list. Recommend annual follow up [...] 0.1 % eye drops,suspe nsion 2024 025 [facility], [address], [place], [place], [phone], 11:19:13 Patient TargetsNo targets recorded. Patient InstructionsNo [...] Details Recorded Time Otorrhea of right ear [id number] 106 Active 2024 KIMMIE MONTILLA PA-C [address] [facility],[place] [address], [place], [address], [facility] [place] 14:01:03 Impacted cerumen of bilateral ears 7233589395968 108 Active 2024 KIMMIE MONTILLA PA-C [address] [facility] [address] [facility], [place], [address], [facility] [place] 14:07:14 Sensorineur al hearing loss of bilateral ears 840626817 Active 2024 Alice RICKS [address] [facility], [address] [facility], [place], [address], [facility] [place] 14:49:01 Impacted cerumen in left ear 5575358288493 101 Active 2024 KIMMIE MONTILLA PA-C [address] [facility] [address] [facility], [place], [address], [facility] [place] 15:01:54 Problem Notes None recorded. Procedures Surgical History Date Name Laterality Status Provider Name and Address Organization Details Recorded Time Comp Audio with Tymps - 82404 & 18050 completed [facility]ICKS [facility] [place], [address], [place] - [facility] [place] 12/14/2024 14:49:00 05/28/202 5 Cerumen removal without microscope left completed KIMMIE MONTILLA PA-C [address] [place],[address], [place], [address], [place] - [facility] 12/14/2024 15:00:58 5 Cerumen removal without microscope bilat completed KIMMIE MONTILLA PA-C [address], [place], [address], [facility] 11/21/2024 14:05:34 Imaging Results None recorded. [...] Updated DateTime 11/21/2024 180.34 cm 25.8 kg/m2 12377.59 g Veronica Marshall [place] - [facility] 11/21/2024 13:11:35 Date Recorded Body height Body mass index (BMI) Body weight Provider Name and Address Organization Details Last Updated DateTime 12/14/2024 180.34 cm 25.8 kg/m2 27305.59 g Veronica Marshall [place] - [facility] 12/14/2024 14:10:49 Social History None recorded. Functional Status None recorded. Mental Status None recorded. Family History Nothing Reported. Medical History Condition Response Allergies/Hayfever N Heart Problems N Anxiety N Tonsil Infections N Emphysema N Migraines N Thyroid Problems N Glaucoma N COPD N Depression N Developmental Delay N Nasal or Sinus Problems N Anemia N Immune System Disorder N Anesthesia Complications N Heart Attack (NE) Y Other Skin Condition N Diabetes N Rhinitis N Bleeding Disorder N Food Allergy N Arthritis N Hearing Loss N Hyperlipidemia N Cancer N Stroke N Dementia N Asthma N Nasal polyps N Sleep Disorder N GERD/Reflux N High Cholesterol N Liver Disease N Fibromyalgia N Headaches N Hypertension N Speech Delay N Kidney Disease N Past Encounters Encounter ID Performer Location Encounter Start Date Encounter Closed Date Diagnosis/Indication Diagnosis SNOMED-CT Code Diagnosis ICD10 Code Diagnosis IMO Codes Diagnosis Note [id number] KIMMIE MONTILLA PA-C [facility] [address] [address] 11/21/2024 12:44:15 11/21/2024 14:48:35 Otorrhea of right ear [id number] 991807 H92.11 4621540 Impacted c erumen of bilateral ears 4904406479 759643 H61.23 [id number] KIMMIE MONTILLA PA-C [facility] [address] [address] 12/14/2024 14:06:01 12/14/2024 15:39:35 Impacted cerumen in left ear 2961070011 087851 H61.22 [id number] Sensorineu ral hearing loss of bilateral ears 129836177 H90.3 [id number] Alice RICKS [facility] [address] [address] 12/14/2024 14:48:35 12/16/2024 03:56:39 Sensorineural hearing loss of bilateral ears 839393417 H90.3 Audiologic al evaluation results:Ri ght ear:Mild [...] 11/02/2024 2 [employer] Geovanni Nick [id number] Geovanni Nick 12/14/2024 2 [place] [facility] Geovanni Greene [id number] Geovanni Gomeztaine 12/14/2024 1 [place]IC[place] B-[place]: [facility] Geovanni Nick [id number] Geovanni Gomeztaine 11/02/2024 2 [place] [facility] Geovanni Greene [id number] Geovanni Nick Notes Date Note Type Note Provider Name and Address Organization Details Recorded Time 11/21/2024 text/html ROS as noted in the HPI 79yo male presents for evaluation of hearing loss. This has been gradual for many years, worse in the right ear. Denies ear pain, drainage, or dizziness. Denies prior ear infections or ear surgeries. Excessive Qtip use. KIMMIE MONTILLA PA-C [address], [address], [facility] 11/21/2024 14:07:37 12/14/2024 text/html ROS as noted in the HPI 79yo male presents for reevaluation of the ears. He reports right sided hearing returned to baseline. Left ear with mild muffled hearing. Denies ear pain, drainage, or new hearing changes. No recent audiometric testing. He has never worn hearing aids. SWATI SHEIKH MD [address], [address], [facility] 12/14/2024 16:46:47 12/14/2024 text/html Audiological Evaluation HPIReported by PatientHearing LossFor hearing loss perceived, patient reportsnone (no loss of audibility). Alice RICKS 100 [facility],[address], [address], [facility] 12/14/2024 15:09:59
--- OUTSIDE RECORDS SUMMARY | 2025-06-02 10:15 | XMS_ITS | Encounter Summary ---
Author Organization [employer] Address [address] [facility] 7t [place] [address] Care Team Providers Care Varnish Melter Helper Name Role Phone Kermit Rangel MD Primary Care Prov ider Reason for Visit * Reason Onset Date Comments Appointment Request 07/29/2024 Encounter Details Date Type Department Care Team (Late st Contact Info) Description 07/29/2024 Telephone [facility] MEDICINE [address] [place] [address] Kermit Rangel MD [address] [place] [address] Appointment Request Social History Tobacco Use Types [...] for that day if theres any availability. [phone] documented in this encounter Plan of Treatment Not on file documented as of this encounter Visit Diagnoses Not on filedocumented in this encounter Additional Health Concerns Assessment Noted Time PHQ-9 Depression Total Score: 0 07/08/20 9:15 AM EST documented as of this encounter Care Teams Varnish Melter Helper Relationship Specialty Start Date End Date Kermit Rangel MD [address] [place] [phone] PCP - General Internal Medicine 07/11/24 Glenn TOTH 07/28/24 documented as of this encounter
--- OUTSIDE RECORDS SUMMARY | 2025-06-02 10:15 | XMS_ITS | Data Portability ---
Author Organization [facility] Address [address] [place] [address] Care Team Providers Care Director Food And Beverage Name Role Phone [facility] Primary Care Provider Assessment No assessment recorded. Plan of Treatment Reminders Order Date Submit Date Provider Last Modified By Organization Details Last Modified Time Details Appointments None recorded. Lab None recorded. Referral None recorded. Procedures None recorded. Surgeries None recorded. Imaging None recorded. Medication Orders meloxicam 15 mg tablet 2023 024 [facility], [address] [facility], [place], [place], [phone], 4 11:54:45 Patient TargetsNo targets recorded. Patient InstructionsNo instructions recorded. Reason for Referral None Reported. Problems Name Problem SNOMED Code Status Onset Date Resolution Date Notes Provider Name and Address Organization Details Recorded Time No complaints [id number] Active Status: 'I'; Not Available [facility] 4 09:10:57 Idiopathic osteoarthri tis 409926780 Active 2016 Problem Code: M17.12; Problem Code Type: ICD-10; Status: 'A'; Not Available [facility] 4 10:56:25 Primary gonarthrosi s, bilateral 794458878 Active 2024 Paramjit Corral PA-C [address] [facility] [address], [place], [address] , [facility] 5 09:01:46 Problem Notes None recorded. Procedures Surgical History Date Name Laterality Status Provider Name and Address Organization Details Recorded Time 5 Knee Kenalog 40 1cc Injection, Bilateral completed Paramjit Corral PA-C [address], [place], [address], [facility] 01/03/2025 09:01:41 4 Knee Kenalog 40 1cc Injection, Bilateral completed Paramjit Corral PA-C [address], [place], [address], [facility] 05/24/2024 11:03:04 Imaging Results [...] Updated DateTime 01/03/2025 180.34 cm 25.4 kg/m2 61751.81 g Sindy Peralta [place] [facility] 01/03/2025 08:16:50 Date Recorded Body height Provider Name an d Address Organization Details Last Updated DateTime 05/24/2024 185.42 cm Paramjit Corral PA-C [address] [facility] [address], [place], [address], [place] - [facility] 05/24/2024 10:21:55 Social History None recorded. Functional Status None recorded. Mental Status None recorded. Family History Nothing Reported. Medical History No medical history recorded. Past Encounters Encounter ID Performer Location Encounter Start Date Encounter Closed Date Diagnosis/Indication Diagnosis SNOMED-CT Code Diagnosis ICD10 Code Diagnosis IMO Codes Diagnosis Note [id number] Paramjit Corral PA-C [place] [address] [place] [address] 05/24/2024 10:06:04 06/22/2024 10:16:10 Primary gonarthrosis, bilateral 482527036 M17.0 [id number] [id number] Paramjit Corral PA-C [place] [facility] [place] [address] [place] [address] 01/03/2025 08:07:19 01/10/2025 07:54:10 Primary gonarthrosis, bilateral 132419610 M17.0 [id number] Health Concerns Section Related Observation LastModified by Organization Detai ls LastModified Time None Recorded Concern Status LastModified by Organization Details LastModified Time None Recorded Advance Directives Directive None Recorded Payers Insurance Date Sequence Insurance Name Policy Number Policy Sosa Covered Member ID Sosa Member ID Guarantor Name 01/03/2025 1 [place] B-[place]: [employer] Geovanni L Sandoval [id number] Geovanni L Sandoval 01/03/2025 2 [place] [facility] Geovanni L Sandoval [id number] Geovanni L Sandoval 07/12/2024 2 [place] [facility] Geovanni L Sandoval [id number] Geovanni L Sandoval Notes Date Note Type [...] continued conservative treatment. Paramjit Corral PA-C [address], [place], [address], [facility] 05/24/2024 11:03:44 01/03/2025 text/html [...] continued conservative treatment. Paramjit Corral PA-C [address], [place], [address], [facility] 01/03/2025 09:01:59
--- OUTSIDE RECORDS SUMMARY | 2025-06-02 10:15 | XMS_ITS | Encounter Summary ---
Author Organization [employer] Address [address] [facility] 7t [place] [address] Care Team Providers Care Systems Engineer Name Role Phone Kermit Rangel MD Primary Care Prov ider Reason for Visit * Reason Onset Date Comments FYI 09/15/2024 Encounter Details Date Type Department Care Team (Late st Contact Info) Description 09/15/2024 Telephone [facility] MEDICINE [address] [place] [address] Kermit Rangel MD [address] [place] [address] FYI Social History Tobacco Use Types Packs/Day [...] the past 12 months, has t he [employer], gas, oil or water [employer] threatened to shut off services in your [...] look at labs and contact Kisha at [phone]. documented in this encounter Plan of Treatment Not on file documented as of this encounter Visit Diagnoses Not on filedocumented in this encounter Additional Health Concerns Assessment Noted Time PHQ-9 Depression Total Score: 0 07/08/20 9:15 AM EST documented as of this encounter Care Teams Systems Engineer Relationship Specialty Start Date End Date Kermit Rangel MD [address] [place] [address] PCP - General Internal Medicine 07/11/24 Glenn TOTH 07/28/24 documented as of this encounter
== END 2025-06-02 10:17 | disposition home or self-care (01) ==
LOC: HO.HCS 09:23
PROVIDERS: PCP Internal Medicine; Visit Provider Nurse Practitioner Family
DX: I48.91 Unspecified atrial fibrillation (principal); Z98.890 Other specified postprocedural states; I47.29 Other ventricular tachycardia; R00.1 Bradycardia, unspecified
CPT/HCPCS: 93010; 99214; G2211

== ENCOUNTER → 2025-06-02 09:22 | Outpatient (BNVA) | payer MEDICARE, OTHER, SELFPAY | PROVIDERS: PCP Internal Medicine; Visit Provider Nurse Practitioner Family | DX: I48.91 Unspecified atrial fibrillation (principal); R00.1 Bradycardia, unspecified; I47.29 Other ventricular tachycardia; Z98.890 Other specified postprocedural states; F10.10 Alcohol abuse, uncomplicated; Z79.01 Long term (current) use of anticoagulants; Z87.891 Personal history of nicotine dependence | CPT/HCPCS: 93005; 99212 ==

== ENCOUNTER 2025-06-20 07:44 | Day surgery (SDC) | payer MEDICARE, OTHER, SELFPAY ==
--- OUTSIDE RECORDS SUMMARY | 2024-08-26 06:00 | XMS_ITS ---
Author Organization [facility] Address [address] [place] [address] Care Team Providers Care Bung Sewer Name Role Phone Cam acosta, Kermit Primary Care Prov ider Chip Nogueira Jr, Randolph Saunders REASON FOR VISIT acute gastric ulcer w/ hemorrh Encounters Encounter Location Date Provider Diagnosis [facility] [address] [place] [id number] 08/26/2024 Randolph Nogueira Jr Plan Of Treatment Next Appt Details Provider Name:Randolph wilkerson Jr, 06/20/2025 09:10:00 AM, [address] [place] [address], [id number], Provider Name:Ralph Howell , 08/17/2025 09:20:00 AM, [address] [place] [address], [address], [place], [address], Progress Notes * ТАТЬЯНА KIRKLAND LDOB:1944 (79 yo M)Acc No.[id number]:08/26/2024 EGD and COL/MAC Patient: ТАТЬЯНА NAPOLES Provider: Blanca Nogueira MD :1945 A ge:79 Y S ex:Male Date:08/26/2024 Address:[address] [place] [address] [address], [id number] Pcp:Kermit porter md Subjective: * Chief Complaints: [...] 0 08/26/2024 Generated for Kim villasenor/Princess/Kanitting on: 07:05 AM EDT
--- OUTSIDE RECORDS SUMMARY | 2024-10-14 04:20 | XMS_ITS ---
Author Organization [facility] Address [address] [facility] [address] [place] [id number] Care Team Providers Care Decorator Consultant Name Role Phone Cam acosta, Kimberton Primary Care Prov ider Randolph Miguel Jr REASON FOR VISIT gastric ulcer, screening Encounters Encounter Location Date Provider Diagnosis [facility] [place] Outpatient [address] [place] [id number] 10/14/2024 Randolph Nogueira Jr Colon cancer screening Z12.11 ; Colon polyps K63.5 and Gastric ulcer K25.9 Assessments Encounter Date Diagnosis (ICD Code) Assessment Notes Treatment Notes Treatment Clinical Notes Section Notes 10/14/2024 Colon cancer screening (ICD-10 - Z12.11) 10/14/2024 Colon polyps (ICD-10 - K63.5) 10/14/2024 Gastric ulcer (ICD-10 - K25.9) Plan Of Treatment Next Appt Details Provider Name:Randolph wilkerson Jr, 06/20/2025 09:10:00 AM, [address] [place] [address], [phone], Provider Name:Ralph rOlando Lynda , 08/17/2025 09:20:00 AM, [address] [place] [address], [address] [facility], [place], [id number], Progress Notes * ТАТЬЯНА KIRKLAND LDOB:1944 (79 yo M)Acc No.[id number]:10/14/2024 EGD and COL/MAC Patient: ТАТЬЯНА NAPOLES Eduardo Provider: Blanca Nogueira MD :1945 A ge:79 Y S ex:Male Date:10/14/2024 Address:[address] [place] [address] [address], [place] [id number] Pcp:Kermit porter md Subjective: * Chief Complaints: * 1 . Gastric ulcer, screening. * Medical History: Objective: * Vitals: Assessment: * Assessment: 1. C olon cancer screening - Z12.11 (Primary) 2 . C olon polyps - K63.5? 3. G astric ulcer - K25.9 Plan: * Treatment: * Procedure Codes: 4 5385 LESION REMOVAL COLONOSCOPY, [address] UPPER GI ENDOSCOPY, BIOPSY * * The named appointment provid er may or may not be the originator of this progress note, and it is not deemed complete until electronically signed by the appointment provider. Sign off status: Pending * Provider: Blanca Nogueira MD Date: 0 10/14/2024 Generated for Kim villasenor/Princess/Ponchosmitting on: 1 07:05 AM EDT
--- OUTSIDE RECORDS SUMMARY | 2025-03-31 09:30 | XMS_ITS ---
Author Organization [facility] Address [address] [place] [address] Care Team Providers Care Air Technician Name Role Phone Cam acosta, Kermit Primary Care Prov ider Chip Nogueira Jr, Randolph Saunders REASON FOR VISIT GI bleed Encounters Encounter Location Date Provider Diagnosis [facility] [place] [address] [place] [id number] 03/31/2025 Randolph Nogueira Jr Plan Of Treatment Next Appt Details Provider Name:Randolph wilkerson Jr, 06/20/2025 09:10:00 AM, [address] [place] [address], [phone], Provider Name:Ralph Orlando Howell , 08/17/2025 09:20:00 AM, [address] [place] [address], [address], [place], [phone], Progress Notes * ТАТЬЯНА KIRKLAND LDOB:1944 (79 yo M)Acc No.[id number]:03/31/2025 EGD/MAC Patient: ТАТЬЯНА NAPOLES Provider: Blanca Nogueira MD :1945 A ge:79 Y S ex:Male Date:03/31/2025 Address:[address] [place] [address] [address], [id number] Pcp:Kermit porter md Subjective: * Chief Complaints: [...] 03/31/2025 Generated for Kim villasenor/Princess/Rod on: 1 07:05 AM EDT
--- OUTSIDE RECORDS SUMMARY | 2025-05-18 07:05 | XMS_ITS | Encounter Summary ---
Author Organization [employer] Address [address] [place] [address] Care Team Providers Care Zoo Director Name Role Phone Kermit Rangle MD Primary Care Prov ider Reason for Visit * Reason Onset Date Comments FYI 09/15/2024 Encounter Details Date Type Department Care Team (Late st Contact Info) Description 09/15/2024 Telephone [facility] [address] [place] [address] Kermit Rangel MD [address] [place] [address] FYI Social History Tobacco Use Types Packs/Day [...] the past 12 months, has t he [employer], gas, oil or water [employer] threatened to shut off services in your [...] look at labs and contact Kisha at [phone]. documented in this encounter Plan of Treatment Not on file documented as of this encounter Visit Diagnoses Not on filedocumented in this encounter Additional Health Concerns Assessment Noted Time PHQ-9 Depression Total Score: 0 07/08/20 9:15 AM EST documented as of this encounter Care Teams Zoo Director Relationship Specialty Start Date End Date Kermit Rangel MD [address] [place] [address] PCP - General Internal Medicine 07/11/24 Glenn TOTH 07/28/24 documented as of this encounter
--- OUTSIDE RECORDS SUMMARY | 2025-05-18 07:05 | XMS_ITS | Encounter Summary ---
Author Organization [employer] Address [address] [place] [address] Care Team Providers Care Profile Grinder Technician Name Role Phone Kermit Rangel MD Primary Care Prov ider Encounter Details Date Type Department Care Team (Late st Contact Info) Description 07/11/2024 Telephone [facility] [address] [place] [address] Kermit Rangel MD [address] [place] [address] Social History Tobacco Use Types Packs/Day Years [...] documented as of this encounter Care Teams Profile Grinder Technician Relationship Specialty Start Date End Date Kermit Rangel MD [address] [place] [address] PCP - General Internal Medicine 07/11/24 Glenn TOTH 07/28/24 documented as of this encounter
--- OUTSIDE RECORDS SUMMARY | 2025-05-18 07:05 | XMS_ITS | Data Portability ---
Author Organization [facility], [facility] Address [address] [place] [address] Care Team Providers Care Casino Host Name Role Phone [facility] Primary Care Provider Assessment No assessment recorded. Plan of Treatment Reminders Order Date Submit Date Provider Last Modified By Organization Details Last Modified Time Details Appointments None recorded. Lab None recorded. Referral None recorded. Procedures None recorded. Surgeries None recorded. Imaging None recorded. Medication Orders meloxicam 15 mg tablet 2023 024 [facility], [address] [facility], [place], [place], [id number], 4 11:54:45 Patient TargetsNo targets recorded. Patient InstructionsNo instructions recorded. Reason for Referral None Reported. Problems Name Problem SNOMED Code Status Onset Date Resolution Date Notes Provider Name and Address Organization Details Recorded Time No complaints 503597619 Active Status: 'I'; Not Available [facility] 4 09:10:57 Idiopathic osteoarthri tis 175526104 Active 2016 Problem Code: M17.12; Problem Code Type: ICD-10; Status: 'A'; Not Available [facility] 4 10:56:25 Primary gonarthrosi s, bilateral 768467807 Active 2024 Paramjit Corral PA-C [address], [place], [address] , [facility] 5 09:01:46 Problem Notes None recorded. Procedures Surgical History Date Name Laterality Status Provider Name and Address Organization Details Recorded Time 5 Knee Kenalog 40 1cc Injection, Bilateral completed Paramjit Corral PA-C [address], [place], [address], [facility] 01/03/2025 09:01:41 4 Knee Kenalog 40 1cc Injection, Bilateral completed Paramjit Corral PA-C [address], [place], [address], [facility] 05/24/2024 11:03:04 Imaging Results None recorded. Procedure Notes None recorded. Medical Equipment None Reported. Medications Name Sig Start Date Stop Date Status Note LastModified by Organization Details LastModified Time tetracyclin e 500 mg capsule TAKE ONE CAPSULE FOUR TIMES DAILY FOR FOURTEEN DAYS 01/03 completed Not Available Not Available Not Available celecoxib 200 mg capsule TAKE ONE CAPSULE DAILY 01/03 completed Not Available Not Available Not Available Vitamin C 500 mg tablet TAKE ONE TABLET EVERY DAY WITH ferrous sulfate active Not Available Not Available No t Available metoprolol tartrate 100 mg tablet TAKE ONE TABLET EVERY TWELVE HOURS 01/03 completed Not Available Not Available Not Available hydrocodone 5 mg-acetamin ophen 325 mg [...] mg) tablet TAKE ONE TABLET EVERY DAY 01/03 completed Not Available Not Available Not Available omeprazole 40 mg capsule,del ayed release TAKE ONE CAPSULE TWICE DAILY UNTIL 07/22/24, THEN DECREASE TO ONE CAPSULE DAILY 01/03 completed Not Available Not Available Not Available ketorolac 0.5 % eye drops PLACE ONE DROP IN THE AFFECTED EYE(S) THREE TIMES DAILY STARTING TWO DAYS prior TO SURGERY THEN continue DIRECTED active Not Available Not Available No t Available prednisolon e acetate 1 % eye drops,suspe nsion PLACE ONE DROP IN THE LEFT EYE FOUR TIMES DAILY FOR FOUR DAYS THEN twice daily FOR FOUR DAYS 01/03 completed Not Available Not Available Not Available ferrous sulfate 325 mg (65 mg iron) tablet TAKE ONE TABLET EVERY DAY active Not Available Not Available No t Available docusate sodium 100 mg capsule TAKE 1 CAPSULE TWICE DAILY IN THE MORNING AND AT BEDTIME NEEDED FOR CONSTIPAT ION 01/03 completed Not Available Not Available Not Available bismuth subsalicyla te 262 mg chewable tablet CHEW TWO TABLETS FOUR TIMES DAILY FOR FOURTEEN DAYS 01/03 completed Not Available Not Available Not Available omeprazole 20 mg capsule,del ayed release TAKE ONE CAPSULE TWICE DAILY FOR FOURTEEN DAYS active Not Available Not Available No t Available diltiazem CD 120 mg capsule,ext ended release 24 hr TAKE ONE CAPSULE DAILY active Not Available Not Available No t Available folic acid 1 mg tablet TAKE ONE TABLET EVERY DAY 01/03 completed Not Available Not Available Not Available bisacodyl 5 mg tablet,ernesto yed release TAKE TWO TABLETS AT 3pm AND 7pm FOR ONE DAY 01/03 completed Not Available Not Available Not Available [...] drinking at 5pm the day before procedure 01/03 completed Not Available Not Available Not Available tobramycin 0.3 %-dexametha sone 0.1 % [...] and Address Organization Details Last Updated DateTime 01/03/2025 180.34 cm 25.4 kg/m2 06614.81 g Sindy Peralta [place] - [facility] 01/03/2025 08:16:50 Date Recorded Body height Provider Name an d Address Organization Details Last Updated DateTime 05/24/2024 185.42 cm Paramjit Corral PA-C [address] [facility] [address], [place], [address], [place] - [facility] 05/24/2024 10:21:55 Social History None recorded. Functional Status None recorded. Mental Status None recorded. Family History Nothing Reported. Medical History No medical history recorded. Past Encounters Encounter ID Performer Location Encounter Start Date Encounter Closed Date Diagnosis/Indication Diagnosis SNOMED-CT Code Diagnosis ICD10 Code Diagnosis IMO Codes Diagnosis Note [id number] Paramjit Corral PA-C [place] [address] [place] [address] 05/24/2024 10:06:04 06/22/2024 10:16:10 Primary gonarthrosis, bilateral 986361153 M17.0 [id number] Paramjit Corral PA-C [place] [facility] [address] [place] [address] 01/03/2025 08:07:19 01/10/2025 07:54:10 Primary gonarthrosis, bilateral 851953859 M17.0 [id number] Health Concerns Section Related Observation LastModified by Organization Detai ls LastModified Time None Recorded Concern Status LastModified by Organization Details LastModified Time None Recorded Advance Directives Directive None Recorded Payers Insurance Date Sequence Insurance Name Policy Number Policy Sosa Covered Member ID Sosa Member ID Guarantor Name 01/03/2025 1 [place] B[place] [employer] Geovanni L Sandoval [id number] Geovanni L Sandoval 01/03/2025 2 [place] [facility] Geovanni L Sandoval [id number] Geovanni L Sandoval 07/12/2024 2 [place] [facility] Geovanni L Sandoval [id number] Geovanni L Sandoval Notes Date Note Type Note Provider Name and Address Organization Details Recorded Time 05/24/2024 text/html I am seeing the patient today under the supervision of Dr. Contreras was available but who did not see the patient. Chief Complaint The patient presents today for follow-up evaluation regarding the Bilateral knee osteoarthritis. Is known to have knee arthritis treated conservatively to this point with relief of symptoms. Past Medical/Surgical History Reviewed today, otherwise unchanged per intake sheet. Physical Findings General Appearance: Mild antalgic gait Knee exam findings note: restrictions are range of motion with pain at extremes, tenderness to palpation involving medial and lateral compartment with mild crepitance, trace effusion, extensor mechanism intact, no instability. Assessment Osteoarthritis of Bilateral knee Plan I discussed with the patient today regarding their knee condition to include all treatment options, conservation and operative, to include total knee replacement surgery which after further discussion, the patient does not wish to pursue any type of operative intervention. In regards to the patient's knees today, I have recommended continued conservative treatment with use of tylenol, possible use of antiinflammatories as well as possibility of intraarticular cortisone injections for which they wish to go forth with. Follow up with us in 3 months for further discussion of total knee replacement surgery versus continued conservative treatment. Paramjit Corral PA-C [address], [place], [address], [facility] 05/24/2024 11:03:44 01/03/2025 text/html I am seeing the patient today under the supervision of Dr. Contreras was available but who did not see the patient. Chief Complaint The patient presents today for follow-up evaluation regarding the Bilateral knee osteoarthritis. Is known to have knee arthritis treated conservatively to this point with relief of symptoms. Past Medical/Surgical History Reviewed today, otherwise unchanged per intake sheet. Physical Findings General Appearance: Mild antalgic gait Knee exam findings note: restrictions are range of motion with pain at extremes, tenderness to palpation involving medial and lateral compartment with mild crepitance, trace effusion, extensor mechanism intact, no instability. Assessment Osteoarthritis of Bilateral knee Plan I discussed with the patient today regarding their knee condition to include all treatment options, conservation and operative, to include total knee replacement surgery which after further discussion, the patient does not wish to pursue any type of operative intervention. In regards to the patient's knees today, I have recommended continued conservative treatment with use of tylenol, possible use of antiinflammatories as well as possibility of intraarticular cortisone injections for which they wish to go forth with. Follow up with us in 3 months for further discussion of total knee replacement surgery versus continued conservative treatment. Paramjit Corral PA-C [address], [place], [address], [facility] 01/03/2025 09:01:59
--- OUTSIDE RECORDS SUMMARY | 2025-05-18 07:05 | XMS_ITS | Clinical Summary ---
Author Organization [employer] Address [address] [facility] 7t [place] [address] Care Team Providers Care Temper Mill Roller Name Role Phone Kermit Rangel MD Primary [...] up on next visit Persistent atrial fibrillation (CMS/HCC) 025 Assessment & Plan (02/20/2025 10:06 AM EDT): [...] Description 02/20/2025 8:30 AM EDT Office Visit [facility] [address] [place] [address] Kermit Rangel MD Persistent atrial fibrillation (CMS/HCC) (Primary Dx); Iron deficiency anemia due to chronic blood loss 02/20/2025 Travel 02/17/2025 Telephone [facility] [address] [place] [address] Kermit Rangel MD chart prep 02/15/2025 Travel from Last 3 Months Family History [...] Free T4 2.41 0.32 - 4.0 uIU/mL [facility] 03/14/2025 8:29 AM EDT 03/14/2025 8:29 AM EDT us Generic External Data Provider LAB BLOOD ORDERAB LES Final Result [facility] [address] [place] [phone] * (ABNORMAL) Hepatic Function Panel (03/14/2025 8:29 AM EDT) Bilirubin, Total 1.9(H) 0.0 - 1.0 mg/dL [facility] Comment:Slight Icterus. Bilirubin, Direct 0.5 0.0 - 0.5 mg/dL [facility] Comment:Slight Icterus. Aspartate Amino Transferase 30 5 - 37 U/L [facility] Alanine Aminotransferase 22 0 - 40 U/L [facility] Total Protein 6.7 6.5 - 8.0 g/dL [facility] Albumin Level 4.0 3.5 - 5.0 g/dL [facility] Alkaline Phosphatase 66 39 - 117 U/L [facility] 03/14/2025 8:29 AM EDT 03/14/2025 8:29 AM EDT us Generic External Data Provider LAB BLOOD ORDERAB LES Final Result Performing Organization Address City/State/[facility] Co de Phone Number [facility] [address] [place] [phone] * Lipid Panel, Standard (09/13/2024 7:22 AM EST) Pathologist [facility] Triglycerides 90 <150 mg/dL [facility] Comment:Desirable Triglyceri de: less than 150 mg/dLBorderline High Triglyceride 150-199 mg/dLHigh Triglyceride: 200-499 mg/dLVery High Triglyceride: greater than or equal to 5OO mg/dL Cholesterol 134 <200 mg/dL [facility] Comment:Desirable Cholestero l: less than 200 mg/dLBorderline High Cholesterol: 200-239 mg/dLHigh Cholesterol: greater than 239 mg/dL LDL Cholesterol Calculated 66 <100 mg/dL [facility] Comment:Desirable LDL: less than 100 mg/dLNear Optimal/Above Optimal LDL: 110- 129 mg/dLBorderline High LDL: 130-159 mg/dLHigh LDL: 160-189 mg/dLVery High LDL: greater than or equal to 190 mg/dL HDL Cholesterol 50 >40 mg/dL [facility] Comment:Desirable HDL: great er than 40 mg/dL Note: This HDL assay may give artificially low results in patients with liver disease. 09/13/2024 7:22 AM EST 09/13/2024 7:22 AM EST us Generic External Data Provider LAB BLOOD ORDERAB LES Final Result [facility] [address] [place] [phone] from Last 3 Months or Most Recently Relevant to Health Maintenance Insurance MEDICARE Advance Directives Documents on File Type Date Recorded Patient Arc Trimmer Expl anation Advance Directives and Livin g Will 01/09/2025 3:59 PM HCP Care Teams Temper Mill Roller Relationship Specialty Start Date End Date Kermit Rangel MD [address] [place] [phone] PCP - General Internal Medicine 07/11/24 Glenn TOTH 07/28/24
--- OUTSIDE RECORDS SUMMARY | 2025-05-18 07:05 | XMS_ITS | Encounter Summary ---
Author Organization [employer] Address [address] [facility] 7[address] [place] [address] Care Team Providers Care Fact Checker Name Role Phone Kermit Rangel MD Primary Care Prov ider Reason for Visit * Reason Onset Date Comments Appointment Request 07/29/2024 Encounter Details Date Type Department Care Team (Late st Contact Info) Description 07/29/2024 Telephone [facility] [address] [place] [address] Kermit Rangel MD [address] [place] [address] Appointment Request Social History Tobacco Use Types [...] for that day if theres any availability. [phone] documented in this encounter Plan of Treatment Not on file documented as of this encounter Visit Diagnoses Not on filedocumented in this encounter Additional Health Concerns Assessment Noted Time PHQ-9 Depression Total Score: 0 07/08/20 9:15 AM EST documented as of this encounter Care Teams Fact Checker Relationship Specialty Start Date End Date Kermit Rangel MD [address] [place] [phone] PCP - General Internal Medicine 07/11/24 Glenn TOTH 07/28/24 documented as of this encounter
--- OUTSIDE RECORDS SUMMARY | 2025-05-18 07:06 | XMS_ITS | Data Portability ---
Author Organization [place] [facility] Address [address] [facility] [address] [place] [address] Assessment Encounter Date Assessment Date Assessment LastModified [...] 12/14/2024 12/14/2024 Follow up with referring provider. [email or web address] Not available 12/14/2024 14:49:00 12/14/2024 12/14/2024 79yo male presents for evaluation of the ears. Left-sided cerumen impaction removed with suction. TMs and EACs are normal to inspection. 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 Patient is medically cleared for amplification. [facility]. Recommend annual follow [...] [facility] [address], [place], [place], [phone], 11:19:13 Patient TargetsNo targets recorded. Patient InstructionsNo [...] Details Recorded Time Otorrhea of right ear [id number] 106 Active 2024 KIMMIE MONTILLA PA-C 100 [facility],[place] [address], [place], [phone], [facility] 14:01:03 Impacted cerumen of bilateral ears [id number] 108 Active 2024 KIMMIE MONTILLA PA-C 100 [facility] [address] [facility], [place], [address], [facility] - [facility] 14:07:14 Sensorineur al hearing loss of bilateral ears 113328481 Active 2024 Alice RICKS [address] [facility], [address] [facility], [place], [phone], [facility] - [facility] 14:49:01 Impacted cerumen in left ear 0584965571668 101 Active 2024 IKMMIE MONTILLA PA-C 100 [facility] [address] [facility], [place], [address], [facility] - [facility] 15:01:54 Problem Notes None recorded. Procedures Surgical History Date Name Laterality Status Provider Name and Address Organization Details Recorded Time Comp Audio with Tymps - 12488 & 12539 completed Alice RICKS [address] [facility], [address], [place] - [facility] 12/14/2024 14:49:00 05/28/202 5 Cerumen removal without microscope left completed KIMMIE MONTILLA PA-C [address], [place], [address], [place] - [facility] 12/14/2024 15:00:58 5 Cerumen removal without microscope bilat completed KIMMIE MONTILLA PA-C [address], [place], [address], [facility] - [facility] 11/21/2024 14:05:34 Imaging Results None recorded. [...] Updated DateTime 11/21/2024 180.34 cm 25.8 kg/m2 74669.59 g Veronica Marshall [place] - [facility] 11/21/2024 13:11:35 Date Recorded Body height Body mass index (BMI) Body weight Provider Name and Address Organization Details Last Updated DateTime 12/14/2024 180.34 cm 25.8 kg/m2 19397.59 g Veronica Marshall [place] - [facility] 12/14/2024 14:10:49 Social History None recorded. Functional Status None recorded. Mental Status None recorded. Family History Nothing Reported. Medical History Condition Response Allergies/Hayfever N Heart Problems N Anxiety N Tonsil Infections N Emphysema N Migraines N Thyroid Problems N COPD N Depression N Developmental Delay N Glaucoma N Nasal or Sinus Problems N Anemia N Immune System Disorder N Anesthesia Complications N Heart Attack ([place]) Y Other Skin Condition N Diabetes N [...] ICD10 Code Diagnosis IMO Codes Diagnosis Note [id number] KIMMIE MONTILLA PA-C [facility] [address] [address] 11/21/2024 12:44:15 11/21/2024 14:48:35 Otorrhea of right ear [id number] [id number] H92.11 [id number] Impacted c erumen of bilateral ears 1436328047 754399 H61.23 [id number] KIMMIE MONTILLA PA-C [facility] [address] [address] 12/14/2024 14:06:01 12/14/2024 15:39:35 Impacted cerumen in left ear 0698331682 631235 H61.22 [id number] Sensorineu ral hearing loss of bilateral ears 422428607 H90.3 [id number] Alice RICKS [facility] [address] [address] 12/14/2024 14:48:35 12/16/2024 03:56:39 Sensorineural hearing loss of bilateral ears 083295954 H90.3 Audiologic al evaluation results:Ri ght ear:Mild [...] 11/02/2024 2 [employer] Geovanni Nick [id number] Geovanni Nick 12/14/2024 2 [place] [facility] Geovanni Greene [id number] Geovanni Gomeztaine 12/14/2024 1 [place]ICARE B-[place]: [facility] Geovanni Nick [id number] Geovanni Gomeztaine 11/02/2024 2 [place] [facility] Geovanni Greene [id number] Geovanin Nick Notes Date Note Type Note Provider Name and Address Organization Details Recorded Time 11/21/2024 text/html ROS as noted in the HPI 79yo male presents for evaluation of hearing loss. This has been gradual for many years, worse in the right ear. Denies ear pain, drainage, or dizziness. Denies prior ear infections or ear surgeries. Excessive Qtip use. KIMMIE MONTILLA PA-C [address], [address], [facility] - [facility] 11/21/2024 14:07:37 12/14/2024 text/html ROS as noted in the HPI 79yo male presents for reevaluation of the ears. He reports right sided hearing returned to baseline. Left ear with mild muffled hearing. Denies ear pain, drainage, or new hearing changes. No recent audiometric testing. He has never worn hearing aids. SWATI SHEIKH MD [address], [address], [facility] - [facility] 12/14/2024 16:46:47 12/14/2024 text/html Audiological Evaluation HPIReported by PatientHearing LossFor hearing loss perceived, patient reportsnone (no loss of audibility). Alice RICKS 100 [facility],[address], [address], [facility] - [facility] 12/14/2024 15:09:59
--- OUTSIDE RECORDS SUMMARY | 2025-05-18 07:06 | XMS_ITS | Patient Health Record ---
Author Organization [facility] Address [address] [place] [address] Care Team Providers Care Granular Operator Name Role Phone Cam acosta, Kermit Primary Care Prov idetony Nogueira Jr, Randolph Unavailable Allergies No Known Allergies Results Component Value Reference Range Notes Type and Screen Reviewed date:06/20/2024 09:16:50 AM Interpretation: Performing Lab:[facility], [address] [place] [phone] Notes/Report: Results at Issue Units as of 06/18/24 1158 ... Test View Group: Most Recent HGB HCT Results LABORATORY Date Time Test Result Flag Normal Range 06/18/24 0804 HGB 8.3 L 14.0-18.0 g/dl 06/18/24 0804 HCT 23.7 L 42.0-52.0 % Hgb 7-9 gm na No no Blood Type AP Antibody Screen NEGATIVE Red Blood Cells Reviewed date:06/20/2024 09:16:57 AM Interpretation: Performing Lab:[facility], [address] [place] [phone] Notes/Report: Red Blood Cells [id number] AP RC Red Blood Cells TRANSFUSED 06/18/24 1157 Red Blood Cells [id number] AP RC Red Blood Cells NOT AVAILABLE Pathology Reviewed date:06/24/2024 09:37:10 PM Interpretation: Performing Lab:[facility], [address] [place] [phone] Notes/Report: Complete Blood Count no Diff Reviewed date:06/20/2024 09:16:35 AM Interpretation: Performing Lab:[facility], [address] [place] [phone] Notes/Report: White Blood Count 4.6 4.8-10.8 X10*3/uL [...] Panel Reviewed date:06/20/2024 09:16:43 AM Interpretation: Performing Lab:[facility], [address] [place] [phone] Notes/Report: Sodium 138 135-145 mmol/L Potassium 3.9 [...] Diff Reviewed date:06/24/2024 09:37:45 PM Interpretation: Performing Lab:[facility], [address] [place] [phone] Notes/Report: White Blood Count 5.7 4.8-10.8 X10*3/uL [...] PROFILE Reviewed date:06/24/2024 09:36:37 PM Interpretation: Performing Lab:[facility], [address] [place] [phone] Notes/Report: Iron 31 45-160 mcg/dL Total Iron Binding Capacity 257 228-428 mcg/dL Percent Iron Saturation 12 15-50 % Unsaturated Iron Binding 226 Ferritin Reviewed date:06/24/2024 09:37:24 PM Interpretation: Performing Lab:[facility], [address] [place] [phone] Notes/Report: Ferritin 45 20-250 ng/mL Complete Blood Count Auto Di ff Reviewed date:07/05/2024 03:41:05 PM Interpretation: Performing Lab:[facility], [address] [place] [phone] Notes/Report: White Blood Count 5.7 4.8-10.8 X10*3/uL [...] Reviewed date:07/05/2024 03:40:58 PM Interpretation: Performing Lab:[address] [phone] Notes/Report: Iron 103 45-160 mcg/dL Total Iron Binding Capacity 283 228-428 mcg/dL Percent Iron Saturation 36 15-50 % Unsaturated Iron Binding 180 Ferritin Reviewed date:07/05/2024 03:41:16 PM Interpretation: Performing Lab:[address] [phone] Notes/Report: Ferritin 27 20-250 ng/mL Pathology Reviewed date:10/24/2024 08:53:37 AM Interpretation: Performing Lab:[facility], [address] [place] [phone] Notes/Report: Complete Blood Count Auto Di ff Reviewed date:03/29/2025 02:15:07 PM Interpretation: Performing Lab:[facility], [address] [place] [phone] Notes/Report: White Blood Count 8.4 4.8-10.8 X10*3/uL [...] X10*3/uL NRBC Abs Auto 0.000 0.0-0.012 X10*3/uL Hold Lav - Possible Hematolo gy Reviewed date:03/29/2025 10:36:51 PM Interpretation: Performing Lab:[facility], [address] [place] [phone] Notes/Report: Hold Lav - Possible Hematology SEE NOTE Specimen will be held untested for 8 hours. Call Hematology if testing is desired. Prothrombin Time INR Reviewed date:03/29/2025 10:37:00 PM Interpretation: Performing Lab:[facility], [address] [place] [phone] Notes/Report: Prothrombin Time 15.5 10.9-12.4 [employer] [...] prosthetic heart valves: 2.5 - 3.5 OBSX1 Reviewed date:03/29/2025 10:37:11 PM Interpretation: Performing Lab:[facility], [address] [place] [phone] Notes/Report: OBS1 POSITIVE NEGATIVE Comprehensive Met. Panel Reviewed date:03/29/2025 02:14:51 PM Interpretation: Performing Lab:[facility], [address] [place] [phone] Notes/Report: Sodium 142 135-145 mmol/L Potassium 4.1 [...] Magnesium Reviewed date:03/29/2025 02:14:46 PM Interpretation: Performing Lab:[facility], [address] [place] [phone] Notes/Report: Magnesium 2.0 1.6-2.6 mg/dL Lipase Reviewed date:03/29/2025 02:14:40 PM Interpretation: Performing Lab:[facility], [address] [place] [phone] Notes/Report: Lipase 69 8-78 U/L Hold Gold Reviewed date:03/29/2025 10:36:53 PM Interpretation: Performing Lab:[facility], [address] [place] [phone] Notes/Report: Hold Gold See Note Specimen held untested for 24 hours; Call to request Chemistry testing. Type and Screen Reviewed date:03/29/2025 10:36:48 PM Interpretation: Performing Lab:[facility], [address] [place] [phone] Notes/Report: Blood Type AP Antibody Screen NEGATIVE Hold Green Gel Reviewed date:03/29/2025 10:36:56 PM Interpretation: Performing Lab:[facility], [address] [place] [phone] Notes/Report: Hold Green Gel See Note Specimen held untested for 24 hours; Call to request Chemistry testing. Complete Blood Count Auto Di ff Reviewed date:03/31/2025 02:59:53 PM Interpretation: Performing Lab:[facility], [address] [place] [phone] Notes/Report: White Blood Count 5.3 4.8-10.8 X10*3/uL Red Blood Count 3.12 4.60-5.80 X10*6/uL Hemoglobin 10.2 14.0-18.0 g/dl Hematocrit 30.3 42.0-52.0 % Mean Corpuscular Volume 97.1 80.0-98.0 fL Mean Corpuscular Hemoglobin 32.7 27.0-33.0 pg Mean Corpuscular HGB Conc 33.7 31.0-36.0 g/dl Red Cell Distribution Width 13.2 11.0-16.0 % Platelet Count 107 160-400 X10*3/uL Mean Platelet Volume 10.5 9.4-12.4 fL Neutrophils Percent Auto 63.0 45-73 % Imm Gran Pct Auto 3.6 0.0-0.4 % Lymphocytes Percent Auto 22.7 20-40 % Monocytes Percent Auto 8.8 2-11 % Eosinophils Percent Auto 1.3 0-4 % Basophils Percent Auto 0.6 0-2 % NRBC Pct Auto 0.0 0.0-0.2 /100WBC Neutrophils Absolute Auto 3.4 2.0-8.3 x10*3/u L Imm Gran Abs Auto 0.19 0.00-0.03 X10*3/uL Lymphocytes Absolute Auto 1.2 1.2-4.9 X10*3/u L Monocytes Absolute Auto 0.5 0.1-1.2 X10*3/uL Eosinophils Absolute Auto 0.1 0.0-0.4 X10*3/u L Basophils Absolute Auto 0.0 0.0-0.2 X10*3/uL NRBC Abs Auto 0.000 0.0-0.012 X10*3/uL Comprehensive Met. Panel Reviewed date:03/31/2025 02:59:44 PM Interpretation: Performing Lab:[facility], [address] [place] [phone] Notes/Report: Sodium 141 135-145 mmol/L Potassium 3.7 3.3-5.1 mmol/L Chloride 107 96-108 mmol/L Carbon Dioxide 25 22-29 mmol/L Anion Gap 13 12-20 Blood Urea Nitrogen 42 9-16 mg/dL Creatinine 0.99 0.5-1.4 mg/dL Creatinine Clr Calc Pharmacy 68.8 eGFR (calculated from the MDRD study equation) and eCrCl (calculated from the Cockcroft-Gault equation) are based on different parameters and may not yield comparable results. If eCrCl result is absurd, please check patient's height/weight. Estimated Glomerular Filt Rate > 60 Chronic Kidney Disease: Estimated GFR < 60 mL/min/1.73m2 Severe Kidney Disease: Estimated GFR < 15 mL/min/1.73m2 Glucose Random 104 60-115 mg/dL Calcium 8.1 8.4-10.2 mg/dL Bilirubin Total 1.2 0.0-1.0 mg/dL Aspartate Amino Transferase 20 5-37 U/L Alanine Aminotransferase 13 0-40 U/L Total Protein 5.5 6.5-8.0 g/dL Albumin Level 3.3 3.5-5.0 g/dL Alkaline Phosphatase 54 39-117 U/L Complete Blood Count Auto Di ff Reviewed date:03/31/2025 02:59:29 PM Interpretation: Performing Lab:[facility], [address] [place] [phone] Notes/Report: White Blood Count 5.3 4.8-10.8 X10*3/uL Red Blood Count 3.16 4.60-5.80 X10*6/uL Hemoglobin 10.4 14.0-18.0 g/dl Hematocrit 31.0 42.0-52.0 % Mean Corpuscular Volume 98.1 80.0-98.0 fL Mean Corpuscular Hemoglobin 32.9 27.0-33.0 pg Mean Corpuscular HGB Conc 33.5 31.0-36.0 g/dl Red Cell Distribution Width 13.2 11.0-16.0 % Platelet Count 123 160-400 X10*3/uL Mean Platelet Volume 10.8 9.4-12.4 fL Neutrophils Percent Auto 63.2 45-73 % Imm Gran Pct Auto 4.3 0.0-0.4 % Lymphocytes Percent Auto 21.8 20-40 % Monocytes Percent Auto 8.6 2-11 % Eosinophils Percent Auto 1.3 0-4 % Basophils Percent Auto 0.8 0-2 % NRBC Pct Auto 0.0 0.0-0.2 /100WBC Neutrophils Absolute Auto 3.4 2.0-8.3 x10*3/u L Imm Gran Abs Auto 0.23 0.00-0.03 X10*3/uL Lymphocytes Absolute Auto 1.2 1.2-4.9 X10*3/u L Monocytes Absolute Auto 0.5 0.1-1.2 X10*3/uL Eosinophils Absolute Auto 0.1 0.0-0.4 X10*3/u L Basophils Absolute Auto 0.0 0.0-0.2 X10*3/uL NRBC Abs Auto 0.000 0.0-0.012 X10*3/uL Pathology Reviewed date:04/12/2025 08:24:35 AM Interpretation: Performing Lab:[facility], [address] [place] [phone] Notes/Report: Reason For Referral No Information Medications Medication SIG (Take, Route, Frequency, Duration) Notes Start Date End Date Status dilTIAZem HCl 120 MG as directed Orally Not-Taking Digoxin 0.25 MG/ML as directed Injection Not-Taking Apixaban 5 MG as directed Orally Not-Taking MiraLax (colon prep) 8.3 ounce ((238) grams mixed with Gatorade or Crystal Light orally begin at 5:00 p.m. the day before the procedure; Duration: 1 day 08/17/2024 Not-Taking Acetaminophen 650 MG/20.3ML as directed Orally Not-Takqueta quiles Dulcolax (colon prep) 5 MG take at 3:00 p.m and 7:00p.m. Orally two tablets twice a day for one day; Duration: 1 day 08/17/2024 Not-Taking Metoprolol Tartrate 50 MG 1 tablet with food Orally Twice a day Active Amiodarone HCl 200 MG 1 tablet Orally On ce a day Active Eliquis 5 MG one tablet Orally twice a day; Duration: 30 days Active Docusate Sodium 100 MG 1 capsule as need ed Orally Once a day; Duration: 30 day(s) Not-Taking Iron (Ferrous Sulfate) 325 (65 Fe) MG 1 tablet Orally daily; Duration: 30 day(s) 06/29/2024 Not-Taking Metoprolol Succinate ER 100 MG 1 tablet Orally Once a day Not-Taking Thiamine HCl 100 MG TAKE ONE TABLET EVER Y DAY Oral; Duration: 30 Not-Takin g Omeprazole 20 MG 1 Orally twice daily ; Duration: 14 days 10/24/2024 Not-Taking Dulcolax (colon prep) 5 MG take at 3:00 p.m and 7:00p.m. Orally two tablets twice a day for one day; Duration: 1 day 08/18/2024 Not-Taking Bismuth Subsalicylate 525 MG 1 Orally 4 times daily; Duration: 14 days 10/24/2024 Not-Taking MiraLax (colon prep) 8.3 ounce ((238) grams mixed with Gatorade or Crystal Light orally begin at 5:00 p.m. the day before the procedure; Duration: 1 day 08/18/2024 Not-Taking Tetracycline HCl 500 MG 4 Orally 4 times a day; Duration: 14 days 10/24/2024 Not-Takin g metroNIDAZOLE 500 MG 1 tablet Orally Thr ee times a day; Duration: 14 days 10/24/2024 Not-Taking Folic Acid 1 MG TAKE ONE TABLET EVER Y DAY Oral; Duration: 30 Not-Takin g Omeprazole 40 MG 1 Oral Twice a day; Duration: 90 days Active Social History Tobacco Use: Social History [...] Problem Status W/U Status Risk Notes Problem Colon cancer screening (800701319) Colon cancer screening (Z12.11) Active confirmed Problem Acute gastric ulcer with hemorrhage (04136466) Acute gastric ulcer with hemorrhage (K25.0) Active confirmed Vital Signs Heart Rate 56 /min 03/27/2025 Temperature 97.4 degrees Fahrenheit 03/27/2025 Blood pressure diastolic 01 mm Hg 03/27/2025 Height 71 in 03/27/2025 Blood pressure systolic 001 mm Hg 03/27/2025 Weight 202.8 lbs 03/27/2025 BMI 28.28 kg/m2 03/27/2025 Encounters Encounter Location Date Provider Diagnosis [facility] [address] [place] [id number] 10/14/2024 Randolph Nogueira Jr Colon cancer screening Z12.11 ; Colon polyps K63.5 and Gastric ulcer K25.9 [facility] [place] [address] [facility] [place], [place] [id number] 03/31/2025 Randolph Nogueira Jr [facility] [address] [place] [address] 06/29/2024 Randolph Nogueira Jr Acute gastric ulcer with hemorrhage K25.0 and Colon cancer screening Z12.11 [facility] [address] [place] [address] 03/27/2025 Randolph Nogueira Jr Acute gastric ulcer with hemorrhage K25.0 and Colon cancer screening Z12.11 [facility] [address] [facility] [address] 06/22/2024 Randolph Nogueira Jr Acute gastric ulcer with hemorrhage K25.0 [facility] [address] [place] [phone] 06/28/2024 Randolph Nogueira Jr [facility] [address] [place] [address] 07/05/2024 Randolph Nogueira Jr [facility] [address] [place] [address] 07/21/2024 Randolph Nogueira Jr [facility] [address] [place] [phone] 08/12/2024 Randolph Nogueira Jr [facility] [address] [place] [address] 08/18/2024 Randolph Nogueira Jr [facility] [address] [place] [address] 08/19/2024 Randolph Nogueira Jr [facility] [address] [place] [phone] 08/19/2024 Randolph Nogueira Jr [facility] [address] [place] [address] 08/31/2024 Randolph Nogueira Jr [facility] [address] [place] [phone] 10/24/2024 Randolph Nogueira Jr H. pylori infection A04.8 [facility] [address] [place] [address] 03/29/2025 Randolph Jero Hsieh [facility] [address] [place] [address] 03/30/2025 Randolph Jero Hsieh [facility] [address] [place] [address] 04/03/2025 Randolph Nogueira Jr [facility] [address] [place] [address] 04/12/2025 Randolph Leasameera Hsieh [facility] [address] [place] [address] 04/17/2025 Randolph Nogueira Jr Assessments Encounter Date Diagnosis [...] Provider Name:Randolph wilkerson Jr, 06/20/2025 09:10:00 AM, [address] [place] [address] , [place], [place], [phone], Provider Name:Ralph Howell , 08/17/2025 09:20:00 AM, [address], [address], [place], [address], Insurance Providers Payer Name Payer Address Payer Phone Subscriber Number Group Number Insured Name Patient Relationship to Insured Coverage Start Date Coverage End Date MEDICARE OF [place] [address] [place] [id number] Т[place]НА [place] Self - patient is the insured MEDICAID OF [facility] [address] [place] [address] [phone] [id number] ТАТЬЯНА [place] Self - patient is the insured Medical (General) History Medical History History ICD Code GI bleed with gastric ulcer 07/12 Surgical History Surgery Date(Month/Year) HERNIA REPAIR BILATERAL AGE 4 Hospitalization History Reason Date(Month/Year) New years day hospitalized for a heart a ttack. 07/20/2024
--- NOTE | 2025-06-14 13:56 | P.CONAN_ITS ---
Documented by User: Marian Merritt NP 06/14/25 14:01 HPI - Anesthesia Eval Consult details Narrative: 79yo M for Upper Endoscopy Afib (eliquis), NSVT - follows [facility]. Last office eval 05/2025 - stable with testing reviewed (see below). Encouraged f/u with GI Daily ETOH PMFSH Active Problems Active Problems: All Active Problems Sinus bradycardia (Acute) S/P cardiac cath (Acute) Dyspnea on exertion (Acute) Preop cardiovascular exam (Acute) Abnormal stress test (Acute) Hospital discharge follow-up (Acute) Hemorrhoids (Acute) Past Medical History Medical History Myocardial infarct History of cardioversion (02/07/25) Atrial fibrillation Bilateral cataracts Hemorrhoids Daily consumption of alcohol Arthritis Iron deficiency anemia Gastric ulcer Atrial fibrillation with RVR Orthostasis NSVT (nonsustained ventricular tachycardia) Upper gastrointestinal bleed Family History Family history of problems with anesthesia: No Surgical History Surgical History Hx of colonoscopy H/O hemorrhoidectomy (11/04/24) Hx of hernia repair History of esophagogastroduodenoscopy (EGD) (03/31/25) History of Problems with Anesthesia: No Social History Social History Household Members: None Housing: Apartment Are you a primary health care marketing specialist to a significant other at home: No Do you presently have visiting nurse or other home services: No Alcohol intake: current Alcohol intake frequency: 3 or more drinks per day Alcohol type: beer Patient Tobacco Use Status: Former Tobacco user Tobacco use type: Cigarette Use of substances other than those prescribed or required for medical reasons: No Have you been hit, kicked, punched, or otherwise hurt by someone within the past year? If so, by whom?: No Are you DNR?: No Advance Directives: No Advance Directives Information Provided: Yes Advance Directives on File: No Advance Directives Date on File: 06/22/24 service: No Meds Allergies Allergy/AdvReac Type Severity Reaction Status Date / Time No Known Allergies Allergy Verified 03/31/25 08:34 Home Medications ?Medication ?Instructions ?Recorded ?Confirmed ?Last Taken ?Type amiodarone 200 mg tablet 200 mg PO DAILY 03/29/2506/20/25 History Exam Pertinent Lab Results Pertinent Lab Results: Laboratory Tests 03/30/25 03/31/25 04:21 11:39 WBC 4.7 L Hgb 10.1 L Hct 28.4 L Plt Count 118 L Sodium 141 Potassium 3.7 Chloride 107 Carbon Dioxide 25 BUN 42 H Creatinine 0.99 Narrative Narrative: EKG 05/2025 - sinus bradycardia, right axis, T-wave abnormality inferiorly, rate 47, QTC 423 milliseconds Echocardiogram 06/20/2024 showed EF 55-60%, basal inferior hypokinetic, mild pulmonary hypertension, left atrium severely dilated, right atrium likely dilated. Nuclear stress test 08/10/2024 shows infarcted basal inferior wall without clear evidence of ischemia. cardiac catheterization on 01/12/2025 showing lad minimal irregularities. cardioversion on 02/07/2025 and was put on Multaq Holter done 03/14/2025 showed sinus Aldair, average 52 beats per minute, frequent PVCs 2.5% with short NSVT runs, longest 16 beats Assessment and Plan Assessment Anesthesia Assessment: Chart Reviewed Final Anesthetic Review Family History of Problems with Anesthesia: No History of Problems with Anesthesia: No Documented by User: Kermit Hare MD 06/20/25 09:25 [facility] Past Medical History Medical History Myocardial infarct History of cardioversion (02/07/25) Atrial fibrillation Bilateral cataracts Hemorrhoids Daily consumption of alcohol Arthritis Iron deficiency anemia Gastric ulcer Atrial fibrillation with RVR Orthostasis NSVT (nonsustained ventricular tachycardia) Upper gastrointestinal bleed Surgical History Surgical History Hx of colonoscopy H/O hemorrhoidectomy (11/04/24) Hx of hernia repair History of esophagogastroduodenoscopy (EGD) (03/31/25) Social History Social History Household Members: None Housing: Apartment Are you a primary health care marketing specialist to a significant other at home: No Do you presently have visiting nurse or other home services: No Alcohol intake: current Alcohol intake frequency: 3 or more drinks per day Alcohol type: beer Patient Tobacco Use Status: Former Tobacco user Tobacco use type: Cigarette Use of substances other than those prescribed or required for medical reasons: No Have you been hit, kicked, punched, or otherwise hurt by someone within the past year? If so, by whom?: No Are you DNR?: No Advance Directives: No Advance Directives Information Provided: Yes Advance Directives on File: No Advance Directives Date on File: 06/22/24 service: No Meds Allergies Allergy/AdvReac Type Severity Reaction Status Date / Time No Known Allergies Allergy Verified 03/31/25 08:34 Home Medications ?Medication ?Instructions ?Recorded ?Confirmed ?Last Taken ?Type amiodarone 200 mg tablet 200 mg PO DAILY 03/29/2506/20/25 History Exam Exam Date and Time: 06/20/2025 Airway Mallampati Class: I TM Dist: >3cm Neck ROM: Full Heart: rrr sb Lungs: ctab vesicular Assessment and Plan Assessment Anesthesia Assessment: Anesthesia Plan Discussed Final Anesthetic Review NPO: Yes ASA Class: III Final Preanesthetic Review: No Changes in Pt Med Stat, Meds/Allgs Chart Reviewed, Consent Obtained/Reviewed and Anes Risks/Benef Reviewed Patient Risk: Intermediate Procedure Risk: Low Anesthetic Plan Anesthetic Plan: MAC: Disposition: Standard PACU
[2025-06-14 14:29] VITALS: BMI 29.6
[2025-06-14 14:39] VITALS: BMI 29.6
[2025-06-20 08:25] VITALS: BP 157/72; PULSE 47; RESP 16; TEMP 36.3; O2SAT 99
[2025-06-20 08:33] VITALS: PULSE 44
[2025-06-20 08:37] VITALS: PULSE 42
[2025-06-20] MEDS: Lactated Ringers 1,000 ML 100 ML IVCONT (08:41)
--- NOTE | 2025-06-20 09:25 | MHC.SHP ---
Pre-Procedural Eval Section A - 24 Hr Update-Section A only Date of Service: 06/20/25 Section B - Complete if H&P > 30 days Chief Complaint: Acute peptic ulcer, site unspecified, with hemorrh Details of Present Illness: see H&P and consult, op notes. no changes Relevant Family History (Specify if Yes): No Relevant Social History: None Present Medications: see Short Stay Collaborative assessment Medical History: No relevant PMH History of Previous Operations: No relevant previous surgery Allergies: Allergies Allergy/AdvReac Type Severity Reaction Status Date / Time No Known Allergies Allergy Verified 03/31/25 08:34 Review of Systems Sugical H&P ROS: Negative: Constitution, Cardiovascular, Respiratory, Neurological, Psychiatric, Hem-Onc, Allergic/Immunologic, Gastrointestinal, Genitourinary, Musculoskeletal, Integumentary, Endocrine and Eyes/Ears/Nose/Throat Exam Surgical H&P Exam: Normal: HEENT, Normal: Heart, Normal: Lungs, Normal: Extremities, Normal: Abdomen, Normal: Skin and Normal: Neurological Plan Diagnosis/Plan: Unchanged I have reviewed the history and physical and performed a pertinent physical examination on my patient. No changes have occurred unless specified. Time Spent With Patient Time: Total time managing care of this patient today ____ minutes.
[2025-06-20 09:49] VITALS: BP 99/51; PULSE 42; RESP 12; TEMP 36.2; O2SAT 95
[2025-06-20 10:06] VITALS: BP 130/55; PULSE 41; RESP 18; TEMP 36.2; O2SAT 97
--- NOTE | 2025-06-20 10:11 | OP_ITS ---
DATE OF SERVICE: 06/20/2025 SURGEON: Randolph Nogueira MD INDICATIONS: Gastric ulcer. PREOPERATIVE DIAGNOSIS: POSTOPERATIVE DIAGNOSIS: PROCEDURE PERFORMED: Upper endoscopy with biopsy. ESTIMATED BLOOD LOSS: COMPLICATIONS: ANESTHESIA: Monitored anesthesia care. ASSISTANTS: SPECIMENS: DESCRIPTION OF PROCEDURE: A history and physical were performed. The risks and benefits of the procedure were explained to the patient. Informed consent was obtained. The patient was placed in the left lateral decubitus position. The Olympus video gastroscope was introduced into the esophagus, stomach, and duodenum. Examination was performed. The scope was removed. He tolerated the procedure well and was taken to recovery in stable condition. FINDINGS: Esophagus. The esophagus was normal. There was a small sliding hiatal hernia. Stomach. The stomach showed no evidence of masses or bleeding. The previously identified ulcer was healed. There was some scarring in the antrum consistent with prior peptic disease. Antral biopsies were obtained. Duodenum. The bulb and 2nd portion were normal. The scope easily passed through the distal antrum into the duodenum. IMPRESSION: Gastric ulcer, healed. RECOMMENDATIONS: Follow up the biopsy results. MD GUERITA Pearl/CHEYENNE / [id number]
== END 2025-06-20 10:38 | disposition home or self-care (01) ==
PROVIDERS: PCP Internal Medicine; Visit Provider Internal Medicine Gastroenterology
PROC: 0DJ08ZZ Inspection of Upper Intestinal Tract, Via Natural or Artificial Opening Endoscopic (ICD-10-PCS; CPT 43235; principal; 2025-06-20 09:10)
DX: K25.0 Acute gastric ulcer with hemorrhage (principal); Z86.0101 Personal history of adenomatous and serrated colon polyps; K44.9 Diaphragmatic hernia without obstruction or gangrene
CPT/HCPCS: 43239; 88305; 88342; J2003; J2704